=== PATIENT | female | born 1970 | race Caucasian/White ===

== ENCOUNTER 2016-12-19 21:55 | Emergency (ER) | payer SELFPAY ==
[2016-12-19 22:41] VITALS: BP 0/0
--- OUTSIDE RECORDS SUMMARY | 2016-12-21 17:35 | XMS REPORT ---
Author Author JUVE MARCUS Organization [facility] Address [address] [place] [address] Care Team Providers Care Inspector Set Up And Lay Out Name Role Phone JUVE MARCUS Unavailable PROBLEMS Type Condition ICD9-CM Code FSS13-LD Code Onset Dates Condition Status SNOMED Code Problem Allergic rhinitis, unspecified allergic rhinitis type J30.9 Active 27810914 Problem Benign essential hypertension I10 Active 6345994 Problem Uncomplicated asthma, unspecified asthma severity J45.909 Active 534299742 Problem Moderate single current episode of major depressive disorder F32.1 Active 65701469 Problem Other hyperlipidemia E78.4 Active 64038214 Problem Anxiety F41.9 Active 03395129 Problem Hypothyroidism, unspecified type E03.9 Active 74342430 Problem Excessive or frequent menstruation N92.0 Active 507452228 Problem Lump or mass in breast N63 Active 13057692 ALLERGIES Unknown Allergies SOCIAL HISTORY No smoking Hx information available PLAN OF CARE VITAL SIGNS MEDICATIONS Medication Instructions Dosage Frequency Start Date End Date Duration Status Gabapentin 100 MG Orally 3 times a day as directed 8h May, Active RESULTS No Results PROCEDURES No Known procedures IMMUNIZATIONS No Known Immunizations
--- OUTSIDE RECORDS SUMMARY | 2016-12-21 17:35 | XMS REPORT | Continuity of Care Document ---
Author Author [facility] Organization [facility] Address Unknown Phone Unavailable Care Team Providers Care Personal Development Educator Name Role Phone Gemini Aguilar PCP [phone] Source Comments Some departments are not documenting in the electronic medical record. If you do not see the information that you expected, contact Release of Information in the Health Information Management department at [phone] for further assistance in locating additional records.[facility] Active Allergies and Adverse Reactions Allergen Noted Date Severity Reactions Comments Compazine 12/01/2016 Low ANXIETY Agitation, "crawling out of my skin" Sulfa (Sulfonamide 11/29/2016 Low NAUSEA AND VOMITING Antibiotics) Tetracycline 11/29/2016 Low UNKNOWN Current Medications Prescription Sig. Disp. Refills Start End Date Status Date MULTIVITAMIN/IRON/FOLIC Take 1 Tab by mouth Active ACID (CENTRUM WOMEN PO) daily. cholecalciferol (VITAMIN Take 1,000 Units by mouth Active D-3) 1,000 units tablet daily. venlafaxine (EFFEXOR) 75 Take 75 mg by mouth twice Active mg tablet daily with meals. spironolactone Take 50 mg by mouth twice Active (ALDACTONE) 50 mg tablet daily. Take with food. furosemide (LASIX) 40 mg Take 40 mg by mouth every Active tablet morning. traZODone (DESYREL) 150 Take 150 mg by mouth at Active mg tablet bedtime as needed. coenzyme Q10(+) 100 mg Take 100 mg by mouth Active cap daily. pantoprazole DR Take 1 Tab by mouth 30 Tab 1 12/03/19 Active (PROTONIX) 40 mg tablet daily. 17 Active Problems Problem Noted Date Chest pain 11/29/2016 Morbid obesity due to excess calories (HCC) 11/29/2016 Gastroesophageal reflux disease without esophagitis 11/29/2016 Odynophagia 11/29/2016 Hypokalemia 11/29/2016 Most Recent Encounters Date Type Specialty Providers Description 12/21/2016 Hospital Emergency Medicine Encounter 12/01/2016 Surgery Marce Kc MD ESOPHAGOGASTRODUODENOSCOP Y 11/30/2016 Anesthesia Pierre Chandra, VI Event 11/30/2016 Anesthesia Katie Ratliff SRNA Event 11/29/2016 Hospital Haris Dodd MD Chest pain - Encounter Thaddeus Mcnally MD 12/02/2016 Melanie Lake MD Social History Tobacco Use Types Packs/Day Years Used Date Former Smoker Smokeless Tobacco: Never Used Comments: quit 20 years ago Alcohol Use Drinks/Week oz/Week Comments No very rare Last Filed Vital Signs Vital Sign Reading Time Taken Blood Pressure 131/69 12/02/2016 11:00 AM CDT Pulse 68 12/02/2016 11:00 AM CDT Temperature 36.6 C (97.8 F) 12/02/2016 11:00 AM CDT Respiratory Rate - - Height 1.727 m (5' 8") 11/30/2016 11:55 AM CDT Weight 133.811 kg (295 lb) 11/30/2016 11:55 AM CDT Body Mass Index 44.86 11/30/2016 11:55 AM CDT Oxygen Saturation 93% 12/02/2016 11:00 AM CDT Plan of Care Health Maintenance Due Date Last Done Comments Physical (Comprehensive) 1976 Exam Pertussis Vaccine 1980 Tetanus Vaccine 1986 Cervical Cancer Screening 1990 Breast Cancer Screening 2009 Influenza Vaccine 02/26/2017 Procedures from Last 3 Months Procedure Name Priority Date/Time Associated Diagnosis Comments TELEMETRY STRIPS-SCAN 12/05/2016 Results for this 9:23 AM CDT procedure are in the results section. ESOPHAGOGASTRODUODENOSCOP 12/01/2016 Dysphagia Y BIOPSY 8:35 AM CDT ESOPHAGOGASTRODUODENOSCOP 12/01/2016 Dysphagia Y 8:35 AM CDT CONSULT IV THERAPY TEAM Routine 11/30/2016 11:59 PM CDT ECG-SCAN 11/30/2016 Results for this 3:38 PM CDT procedure are in the results section. ECG UNCONFIRMED-SCAN 11/29/2016 Results for this 2:07 PM CDT procedure are in the results section. Results from Last 3 Months * TELEMETRY STRIPS-SCAN (12/05/2016 9:23 AM) Narrative Ordered by an unspecified provider. * BASIC METABOLIC PANEL (12/02/2016 4:35 AM) Only the most recent of 3 results within the time period is included. Component Value Range Sodium 140 137-147 MMOL/L Potassium 3.7 3.5-5.1 MMOL/L Chloride 109 98-110 MMOL/L CO2 25 21-30 MMOL/L Anion Gap 6 3-12 Glucose 88 70-100 MG/DL Blood Urea Nitrogen 14 7-25 MG/DL Creatinine 0.83 0.4-1.00 MG/DL Calcium 9.1 8.5-10.6 MG/DL eGFR Non >60Comment: >60 mL/min The eGFR is not validated for use in drug dosing adjustments. Continue to use estimated creatinine clearance per dosing reference text. Please contact the Clinical Pharmacist for questions. eGFR >60Comment: >60 mL/min The eGFR is not validated for use in drug dosing adjustments. Continue to use estimated creatinine clearance per dosing reference text. Please contact the Clinical Pharmacist for questions. Specimen Blood * CBC (12/02/2016 4:35 AM) Only the most recent of 3 results within the time period is included. Component Value Range White Blood Cells 7.6 4.5-11.0 K/UL RBC 3.63 (L) 4.0-5.0 M/UL Hemoglobin 12.0 12.0-15.0 GM/DL Hematocrit 34.1 (L) 36-45 % MCV 94.0 80-100 FL MCH 33.2 26-34 PG MCHC 35.3 32.0-36.0 G/DL RDW 12.6 11-15 % Platelet Count 116 (L) 150-400 K/UL MPV 9.1 7-11 FL Specimen Blood * SURGICAL PATHOLOGY (12/01/2016 9:06 AM) Component Value Range PATHOLOGY REPORT [facility] [email or web address] Charla Coreas MD, PhD, Director of Anatomic Pathology Department of Pathology and Laboratory Medicine [address] [place] [id number] Surgical Pathology Office: [phone] SURGICAL PATHOLOGY REPORT NAME: DEJA NOBLES SURG PATH #: [id number] MR #: [id number] SPECIMEN CLASS: SR BILLING #: [id number] ALT ID #: LOCATION: DISCHARGED DATE OF PROCEDURE: 12/01/2016 AGE: 46 SEX: F DATE RECEIVED: 12/01/2016 : 1970 TIME RECEIVED: 09:06 PHYSICIAN: MARCE KC DATE OF REPORT: 12/03/2016 COPY TO: DATE OF PRINTIN12/11/2016 Procedures/Addenda Addendum Date Ordered: 12/11/2016 Status: Signed Out Date Complete: 12/11/2016 By: Chuy Mejia MD, Attending Physician Date Reported: 12/11/2016 Addendum Diagnosis The diagnosis remains unchanged. Addendum Comment PAS special stain performed on block B1 is negative for fungal microorganisms. ################################################## ###################### Final Diagnosis: A. Gastric mucosa, "gastric", biopsy: Focal mild chronic inflammation. No H. pylori-like organisms are identified on H and E and immunohistochemical stained sections. B. Squamous mucosa, "mid esophageal", biopsy: Focal acute and chronic inflammation. Comment: H. pylori immunohistochemical stain performed on block A1 shows the gastric tissue is negative for H. pylori supporting the above diagnosis. Attestation: By this signature, I attest that I have personally formulated the final interpretation expressed in this report and that the above diagnosis is based upon my examination of the slides and/or other material indicated in this report. +++Electronically Signed Out By+++ [facility]/12/01/2016 Interpreted by: Chuy Mejia MD, Attending Physician Haris Ortiz D.O. Resident 12/03/2016 ################################################## ###################### Material Received: A: gastric biopsies B: mid esophageal biopsies History: 46-year-old female with a history of dysphagia. Gross Description: A. Received in formalin labeled "gastric BX" is a 0.6 x 0.5 x 0.3 cm aggregate of aggarwal-brown soft tissue fragments. The specimen is entirely submitted in cassette A1. (tn) B. Received in formalin labeled "mid esophagus BX" is a 0.5 x 0.3 x 0.2 cm aggregate of aggarwal-brown soft tissue fragments. The specimen is entirely submitted in cassette B1. (tn) aggarwal/12/01/2016 Haris Ortiz D.O. Resident If immunohistochemical stains and/or in situ hybridization are cited in this report, the performance characteristics were determined by the Department of Pathology and Laboratory Medicine of the [facility] ([employer]) in compliance with CLIA'88 regulations. Some of these tests rely on the use of "analyte specific reagents" and are subject to specific labeling requirements by the FDA. Known positive and negative control tissues demonstrate appropriate staining. This testing was developed by the Department of Pathology and Laboratory Medicine of the [facility] It has not been cleared or approved by the FDA. The FDA has determined that such clearance or approval is not necessary. * EGD REPORT (12/01/2016 8:21 AM) Component Value Range Provation Report Patient Name: Giuliano Short Procedure Date: 12/01/2016 8:21 AM [facility]: [id number] Date of : 1970 Gender: Female Attending Physician: Marce Kc MD Procedure: Upper GI endoscopy Indications: Di agnostic procedure, Globus sensation Providers: Marce Kc MD (Doctor), Zacarias Elmore MD (Fellow), Georgina Sales RN (Nurse), Harika Watters RN (Nurse) Referring Physician: Gt Candelario MD Medications: Mo nitored Anesthesia Care Complications: No immediate complications. Procedure: Pre-Anesthesia Assessment: - Prior to the procedure, a History and Physical was performed, and patient medications and allergies were reviewed. The patient's tolerance of previous anesthesia was also reviewed. The risks and benefits of the procedure and the sedation options and risks were discussed with the patient. All questions were answered, and informed consent was obtained. Prior Anticoagulants: The patient has taken no previous anticoagulant or antiplatelet agents. ASA Grade Assessment: II - A patient with mild systemic disease. After reviewing the risks and benefits, the patient was deemed in satisfactory condition to undergo the procedure. After obtaining informed consent, the endoscope was passed under direct vision. Throughout the procedure, the patient's blood pressure, pulse, and oxygen saturations were monitored continuously. The Endoscope [id number] was introduced through the mouth, and advanced to the second part of duodenum. The upper GI endoscopy was accomplished without difficulty. The patient tolerated the procedure well. Findings: The examined esophagus was normal. This was biopsied with a cold forceps for evaluation of eosinophilic esophagitis. A few localized, 4 mm non-bleeding erosions were found in the gastric antrum. There were no stigmata of recent bleeding. Biopsies were taken with a cold forceps for Helicobacter pylori testing. The exam of the stomach was otherwise normal. The examined duodenum was normal. Impression: - Normal esophagus. Biopsied. - Non-bleeding erosive gastropathy. Biopsied. - Normal examined duodenum. Estimated Blood Loss: Estimated blood loss: none. Recommendation: - Return patient to [facility] for [facility] care. - Resume previous diet. - Continue present medications. - Await pathology results. - GI inpatient team to follow - avoic NSAIDs Scope In: 8:29:11 AM Scope Out: 8:34:56 AM Total Procedure Duration Time 0 hours 5 minutes 45 seconds Procedure Code(s): --- Professional --- 47402, Esophagogastroduodenoscopy, flexible, transoral; with biopsy, single or multiple Diagnosis Code(s): --- Professional --- K31.9, Disease of stomach and duodenum, unspecified F45.8, Other somatoform disorders CPT copyright 2015 [employer]. All rights reserved. The codes documented in this report are preliminary and upon tub puller review may be revised to meet current compliance requirements. Attending Participation: I personally performed the entire procedure. MD Marce Clark MD 12/01/2016 8:38:45 AM The attending physician has electronically signed and finalized this document. Zacarias Elmore MD Number of Addenda: 0 Note Initiated On: 12/01/2016 8:21 AM * IRON + BINDING CAPACITY + %SAT+ FERRITIN (12/01/2016 4:17 AM) Component Value Range Iron 71 50-160 MCG/DL Iron Binding-TIBC 314 270-380 MCG/DL % Saturation 23 (L) 28-42 % Ferritin 65 10-200 NG/ML * ECG-SCAN (11/30/2016 3:38 PM) Narrative Ordered by an unspecified provider. * RVP VIRAL PANEL PCR (11/30/2016 2:56 PM) Component Value Range Specimen Source NASAL WASH Adenovirus NOT DETECTED Coronavirus 229E NOT DETECTED Coronavirus HKU1 NOT DETECTED Coronavirus NL63 NOT DETECTED Coronavirus OC43 NOT DETECTED Human Metapneumovirus NOT DETECTED Human NOT DETECTED Rhinovirus/ENTEROVIRUS Influenza A H1N1 2009 NOT DETECTED Influenza A H1 NOT DETECTED Influenza A H3 NOT DETECTED Influenza B NOT DETECTED Parainfluenza 1 NOT DETECTED Parainfluenza 2 NOT DETECTED Parainfluenza 3 NOT DETECTED Parainfluenza 4 NOT DETECTED RSV NOT DETECTED Bordetella Pertussis NOT DETECTED Chlamydophila Pneumoniae NOT DETECTED Mycoplasma Pneumoniae NOT DETECTED Specimen Nasopharyngeal Swab * 2-D + DOPPLER ECHOCARDIOGRAM (11/30/2016 11:55 AM) Component Value Range BSA 2.53 m2 ECHO EF 60 % Referring Provider Gemini Aguilar CV ECHO PV ASSEMBLY LEADER Tg LAW LVIDD 5.4 3.9-5.3 cm LVIDS 4.1 cm IVS 0.9 0.6-0.9 cm PW 0.9 0.6-0.9 cm FS 24.07 28-44 % EF 40.92 % LA size 4.1 2.7-3.8 cm LA volume 65.0 22-52 mL Left Atrium Index 25.69 10-32 Sinus 3.1 2.1-3.5 cm AV peak velocity 1.8 m/s TV rest pulmonary artery n/a mmHg pressure E/A ratio 1.00 TDI e' 0.120 m/s E/E' ratio 7.50 MV Peak E Gorge PW 0.900 m/s MV Peak A Gorge 0.900 m/s Narrative 1. No regional wall motion abnormalities are seen. Overall LV systolic function appears normal. The estimated left ventricular ejection fraction is 60%. 2. Normal left ventricular diastolic function. 3. Right ventricular contractility appears normal. 4. Normal chamber dimensions. 5. There is no evidence of significant valvular regurgitation or stenosis by doppler exam. 6. No pericardial effusion is seen. * ECG UNCONFIRMED-SCAN (11/29/2016 2:07 PM) Narrative Ordered by an unspecified provider. * CT CHEST WO CONTRAST (11/29/2016 2:03 PM) Impressions 1. Mild cardiomegaly without evidence of CHF or pneumonia. 2.. Mild diffuse hepatic steatosis. By my electronic signature, I attest that I have personally reviewed the images for this examination and formulated the interpretations and opinions expressed in this report Finalized by Montana Brock M.D. on 11/29/2016 2:46 PM. Dictated by Mina Che M.D. on 11/29/2016 2:[address] CHEST CLINICAL HISTORY: 46-year-old female, chest tightness, odynophagia, concern for esophagitis. TECHNIQUE: Multiple contiguous axial CT images were obtained through the chest without IV contrast. Post processing coronal and sagittal reconstruction images were made from the axial images. COMPARISON: None IV CONTRAST: None FINDINGS: Evaluation of the mediastinum and eloy, including the vasculature and for lymphadenopathy, is limited without the use of IV contrast. Lower Neck: Unremarkable. Axilla, Mediastinum and Eloy: No axillary or definite hilar lymphadenopathy. Several mildly prominent mediastinal lymph nodes are identified, none of which appear pathologically enlarged. The esophagus appears grossly unremarkable. Heart and Great Vessels: Mild cardiomegaly. Incidental note made of lipomatous hypertrophy of the interatrial septum. No pericardial effusion. The thoracic aorta is normal in caliber with trace calcified plaque. Airway, Lungs and Pleura: The central airways are widely patent. No pleural effusion, pneumothorax, or lobar consolidation. No significant pulmonary edema. Upper Abdomen: Prior cholecystectomy. Mild prominence of the extrahepatic common bile duct, likely choledochoectasia following cholecystectomy and of no acute significance given normal LFTs. There is mild diffuse hepatic steatosis. Chest Wall and Osseous Structures: Mild degenerative changes in the thoracic spine. No destructive osseous lesions are identified. Procedure Note Interface, Radiant Results - Sun Nov 29, 2016 2:[address] CHEST CLINICAL HISTORY: 46-year-old female, chest tightness, odynophagia, concern for esophagitis. TECHNIQUE: Multiple contiguous axial CT images were obtained through the chest without IV contrast. Post processing coronal and sagittal reconstruction images were made from the axial images. COMPARISON: None IV CONTRAST: None FINDINGS: Evaluation of the mediastinum and eloy, including the vasculature and for lymphadenopathy, is limited without the use of IV contrast. Lower Neck: Unremarkable. Axilla, Mediastinum and Eloy: No axillary or definite hilar lymphadenopathy. Several mildly prominent mediastinal lymph nodes are identified, none of which appear pathologically enlarged. The esophagus appears grossly unremarkable. Heart and Great Vessels: Mild cardiomegaly. Incidental note made of lipomatous hypertrophy of the interatrial septum. No pericardial effusion. The thoracic aorta is normal in caliber with trace calcified plaque. Airway, Lungs and Pleura: The central airways are widely patent. No pleural effusion, pneumothorax, or lobar consolidation. No significant pulmonary edema. Upper Abdomen: Prior cholecystectomy. Mild prominence of the extrahepatic common bile duct, likely choledochoectasia following cholecystectomy and of no acute significance given normal LFTs. There is mild diffuse hepatic steatosis. Chest Wall and Osseous Structures: Mild degenerative changes in the thoracic spine. No destructive osseous lesions are identified. IMPRESSION 1. Mild cardiomegaly without evidence of CHF or pneumonia. 2.. Mild diffuse hepatic steatosis. By my electronic signature, I attest that I have personally reviewed the images for this examination and formulated the interpretations and opinions expressed in this report Finalized by Montana Brock M.D. on 11/29/2016 2:46 PM. Dictated by Mina Che M.D. on 11/29/2016 2:17 PM. * CT NECK WO CONTRAST (11/29/2016 2:03 PM) Impressions 1.Unremarkable thyroid gland. No evidence of airway compromise, abnormal pharyngeal thickening or abscess. 2.Left maxillary sinus mucosal retention cyst or polyp, with additional tiny right maxillary mucous retention cyst or polyp. By my electronic signature, I attest that I have personally reviewed the images for this examination and formulated the interpretations and opinions expressed in this report Finalized by Montana Brock M.D. on 11/29/2016 2:50 PM. Dictated by Mina Che M.D. on 11/29/2016 2:[address] NECK WITH CONTRAST CLINICAL HISTORY: 46-year-old female, dysphagia, prior thyromegaly, throat pain and tightness. TECHNIQUE: Multiple contiguous axial images were obtained through the neck following the administration of IV contrast. Post processing coronal and sagittal reconstruction images were made from the axial images. COMPARISON: None IV CONTRAST: Isovue-370 FINDINGS: Brain and Orbits: Intracranial detail is mildly limited secondary to technique. The ventricles and subarachnoid spaces are normal in configuration. No intracranial hemorrhage or extra-axial fluid collection. Findings of benign hyperostosis frontalis interna. The basilar cisterns are patent. The orbits are unremarkable. Sinuses and Mastoids: Moderate sized left maxillary sinus mucosal retention cyst or polyp, with additional tiny right maxillary retention cyst or polyp medially. The remaining paranasal sinuses are clear. The mastoid air cells are well aerated. Suprahyoid Neck: Moderate leftward deviation of the nasal septum. Unremarkable nasopharynx, oral cavity, oropharynx, parapharyngeal space, and retropharyngeal space. Infrahyoid Neck: Unremarkable larynx, hypopharynx, and supraglottis. Lymph Nodes: No cervical lymphadenopathy. Parotid and Submandibular Glands: Fatty replacement of the parotid glands. The submandibular glands are unremarkable. Thyroid: Unremarkable. Vasculature: Unremarkable. Osseous Structures: There is mild straightening of the normal cervical lordosis. Mild multilevel degenerative changes are noted, greatest at C6-C7. Thoracic inlet: Unremarkable upper lungs and mediastinum. Procedure Note Interface, Radiant Results - Sun Nov 29, 2016 2:[address] NECK WITH CONTRAST CLINICAL HISTORY: 46-year-old female, dysphagia, prior thyromegaly, throat pain and tightness. TECHNIQUE: Multiple contiguous axial images were obtained through the neck following the administration of IV contrast. Post processing coronal and sagittal reconstruction images were made from the axial images. COMPARISON: None IV CONTRAST: Isovue-370 FINDINGS: Brain and Orbits: Intracranial detail is mildly limited secondary to technique. The ventricles and subarachnoid spaces are normal in configuration. No intracranial hemorrhage or extra-axial fluid collection. Findings of benign hyperostosis frontalis interna. The basilar cisterns are patent. The orbits are unremarkable. Sinuses and Mastoids: Moderate sized left maxillary sinus mucosal retention cyst or polyp, with additional tiny right maxillary retention cyst or polyp medially. The remaining paranasal sinuses are clear. The mastoid air cells are well aerated. Suprahyoid Neck: Moderate leftward deviation of the nasal septum. Unremarkable nasopharynx, oral cavity, oropharynx, parapharyngeal space, and retropharyngeal space. Infrahyoid Neck: Unremarkable larynx, hypopharynx, and supraglottis. Lymph Nodes: No cervical lymphadenopathy. Parotid and Submandibular Glands: Fatty replacement of the parotid glands. The submandibular glands are unremarkable. Thyroid: Unremarkable. Vasculature: Unremarkable. Osseous Structures: There is mild straightening of the normal cervical lordosis. Mild multilevel degenerative changes are noted, greatest at C6-C7. Thoracic inlet: Unremarkable upper lungs and mediastinum. IMPRESSION 1. Unremarkable thyroid gland. No evidence of airway compromise, abnormal pharyngeal thickening or abscess. 2. Left maxillary sinus mucosal retention cyst or polyp, with additional tiny right maxillary mucous retention cyst or polyp. By my electronic signature, I attest that I have personally reviewed the images for this examination and formulated the interpretations and opinions expressed in this report Finalized by Montana Brock M.D. on 11/29/2016 2:50 PM. Dictated by Mina Che M.D. on 11/29/2016 2:10 PM. * URINALYSIS, MICROSCOPIC (11/29/2016 12:20 PM) Component Value Range WBCs,UA 0-2 0-2 /HPF RBCs,UA 2-10 0-3 /HPF Squamous Epithelial Cells 0-2 0-5 Specimen Urine * URINALYSIS DIPSTICK (11/29/2016 12:20 PM) Component Value Range Color,UA YELLOW Turbidity,UA CLEAR CLEAR-CLEAR Specific [place]-Urine 1.015 1.003-1.035 pH,UA 6.0 5.0-8.0 Protein,UA NEG NEG-NEG Glucose,UA NEG NEG-NEG Ketones,UA NEG NEG-NEG Bilirubin,UA NEG NEG-NEG Blood,UA 3+ (A) NEG-NEG Urobilinogen,UA NORMAL NORM-NORMAL Nitrite,UA NEG NEG-NEG Leukocytes,UA NEG NEG-NEG Urine Ascorbic Acid, UA NEG NEG-NEG Specimen Urine * TROPONIN-I (11/29/2016 9:32 AM) Only the most recent of 3 results within the time period is included. Component Value Range Troponin-I 0.01 0.0-0.05 NG/ML Specimen Blood * FREE T4-FREE THYROXINE (11/29/2016 8:06 AM) Only the most recent of 2 results within the time period is included. Component Value Range T4-Free 0.7 0.6-1.6 NG/DL * TSH WITH FREE T4 REFLEX (11/29/2016 8:06 AM) Only the most recent of 2 results within the time period is included. Component Value Range TSH 5.006 (H) 0.35-5.00 MCU/ML Specimen Blood * PTT (APTT) (11/29/2016 8:06 AM) Component Value Range APTT 19.7 (L) 24.0-40.0 SEC Specimen Blood * PROTIME INR (PT) (11/29/2016 8:06 AM) Component Value Range INR 1.0 0.8-1.2 Specimen Blood * CHEST 2 VIEWS (11/29/2016 1:30 AM) Impressions Findings/impression: 1. Heart and mediastinum are within normal limits. Probable mild spurring of the thoracic spine. 2. Lungs are well-expanded. No consolidation overt failure. No pleural effusion is identified. Pulmonary vasculature is within normal limits. Finalized by Jimmy Walton M.D. on 11/29/2016 10:06 AM. Dictated by Jimmy Walton M.D. on 11/29/2016 10:05 AM. Narrative Chest 2 view INDICATION: 46-year-old female, Chest pain chest pressure radiating to right jaw , reports having to clear throat repeatedly, history of thyroid problems, symptoms started yesterday Procedure Note Interface, Radiant Results - Sun Nov 29, 2016 10:10 AM CDT Chest 2 view INDICATION: 46-year-old female, Chest pain chest pressure radiating to right jaw , reports having to clear throat repeatedly, history of thyroid problems, symptoms started yesterday IMPRESSION Findings/impression: 1. Heart and mediastinum are within normal limits. Probable mild spurring of the thoracic spine. 2. Lungs are well-expanded. No consolidation overt failure. No pleural effusion is identified. Pulmonary vasculature is within normal limits. Finalized by Jimmy Walton M.D. on 11/29/2016 10:06 AM. Dictated by Jimmy Walton M.D. on 11/29/2016 10:05 AM. * POC LACTATE (11/29/2016 1:11 AM) Component Value Range LACTIC ACID POC 0.6 0.5-2.0 MMOL/L * POC TROPONIN (11/29/2016 12:56 AM) Component Value Range Mvdcimpb-V-RCS 0.00 0.00-0.05 NG/ML * MAGNESIUM (11/29/2016 12:50 AM) Component Value Range Magnesium 2.0 1.6-2.6 mg/dL Specimen Blood * COMPREHENSIVE METABOLIC PANEL (11/29/2016 12:50 AM) Component Value Range Sodium 137 137-147 MMOL/L Potassium 3.3 (L) 3.5-5.1 MMOL/L Chloride 98 98-110 MMOL/L Glucose 109 (H) 70-100 MG/DL Blood Urea Nitrogen 25 7-25 MG/DL Creatinine 1.66 (H) 0.4-1.00 MG/DL Calcium 9.4 8.5-10.6 MG/DL Total Protein 7.0 6.0-8.0 G/DL Total Bilirubin 0.4 0.3-1.2 MG/DL Albumin 4.1 3.5-5.0 G/DL Alk Phosphatase 77 25-110 U/L AST (SGOT) 21 7-40 U/L CO2 31 (H) 21-30 MMOL/L ALT (SGPT) 40 7-56 U/L Anion Gap 8 3-12 eGFR Non 33 (L)Comment: >60 mL/min The eGFR is not validated for use in drug dosing adjustments. Continue to use estimated creatinine clearance per dosing reference text. Please contact the Clinical Pharmacist for questions. eGFR 40 (L)Comment: >60 mL/min The eGFR is not validated for use in drug dosing adjustments. Continue to use estimated creatinine clearance per dosing reference text. Please contact the Clinical Pharmacist for questions. Specimen Blood * CBC AND DIFF (11/29/2016 12:50 AM) Component Value Range White Blood Cells 8.6 4.5-11.0 K/UL RBC 4.26 4.0-5.0 M/UL Hemoglobin 13.9 12.0-15.0 GM/DL Hematocrit 39.8 36-45 % MCV 93.4 80-100 FL MCH 32.6 26-34 PG MCHC 34.9 32.0-36.0 G/DL RDW 12.7 11-15 % Platelet Count 155 150-400 K/UL MPV 9.2 7-11 FL Neutrophils 58 41-77 % Lymphocytes 33 24-44 % Monocytes 9 4-12 % Eosinophils 0 0-5 % Basophils 0 0-2 % Absolute Neutrophil Count 5.00 1.8-7.0 K/UL Absolute Lymph Count 2.80 1.0-4.8 K/UL Absolute Monocyte Count 0.80 0-0.80 K/UL Absolute Eosinophil Count 0.00 0-0.45 K/UL Absolute Basophil Count 0.00 0-0.20 K/UL Specimen Blood
--- OUTSIDE RECORDS SUMMARY | 2016-12-21 17:35 | XMS REPORT | Continuity of Care Document ---
Author Author [facility] Organization [facility] Address [facility] [address] [place] [id number] Phone Unavailable Support Name Relationship Address Phone GISELA PEÑA MD Caregiver [address] [place] [address] Unavailable Alma Winchester/Nahid Storm Caregiver [address], [place] [address] [employer] Next Of Kin [address], [place] [address] Insurance Providers Payer Name Policy Number Subscriber Name Relationship Self Pay Insurance Zelda Nobles 18 Self / Same As Patient Advance Directives Directive Response Recorded Date/Time Do you have an Advanced Directive? No 07/20/05 10:33am Advance Directives No 11/04/15 6:30pm Living Will No 11/04/15 6:30pm Health Care Proxy No 01/29/16 10:53pm Power of Mower Sharpener for Health Care No 11/04/15 6:30pm Organ, Tissue, or Eye Donor No 11/04/15 6:30pm Do you have a signed organ donor card? No 11/04/15 6:30pm Chief Complaint and Reason for Visit Chief Complaint ABDOMINAL PAIN Reason for Visit Abdominal pain Problems Active Problems Medical Problem Onset Date Status Abdominal pain Unknown Acute Ovarian anomaly Unknown Acute Ovarian mass, left Unknown Acute Ovarian mass, right Unknown Acute Postoperative abdominal pain Unknown Acute Postoperative pain Unknown Acute Postoperative vaginal bleeding Unknown Acute Medications Current Home Medications Medication Dose Units Route Directions Days/Qty Instructions Start Date Citalopram Hydrobromide 40 Mg 40 Mg Oral Daily 30 04/17/11 Levothyroxine Sodium 100 Mcg 100 Mcg Oral Daily 01/26/12 Amlodipine Besylate 5 Mg 5 Mg Oral Daily 30 09/27/15 Alprazolam 0.5 Mg 0.5 Mg Oral Every 8 Hrs As Needed Anxiety 30 Gabapentin 300 Mg 300 Mg Oral As Needed For Pain 30 10/07/15 Ubidecarenone 400 Mg 400 Mg Oral Daily 10/07/15 Folic Acid/Mv,Fe,Other Min* 1 Each 1 Udtab Oral Daily 10/07/15 [place]-3/Dha/Epa/Dpa/Fish Oil 1 Each 1 Cap Oral Daily 10/07/15 Cholecalciferol 5 000 5,000 Unit Oral Daily 10/07/15 Bisacodyl 10 Mg/Supp.rect 10 Mg Rectal As Needed as needed for Constipation 30 As needed for constipation 10/12/15 Magnesium Hydroxide 400 Mg/5 Ml 30 Ml Oral Daily as needed for Constipation 1 10/12/15 Oxycodone Hcl/Acetaminophen 1 Tab 1-2 Tab Oral Every 4-6 Hrs As Needed Pain 15 11/04/15 Clindamycin Hcl 150 Mg 450 Mg Oral Three Times A Day 90 11/04/15 Meloxicam 15 Mg 15 Mg Oral Daily 14 01/30/16 Past Home Medications Medication Directions Ordered Status Acetaminophen/ Codeine #3 Tab* 1 Tab Tablet, 1 Tab Oral Every 4-6 Hrs As Needed Pain 07/23/09 Discontinued Sulfamethoxazole/Trimethoprim* 1 Tab Tablet, 1 Tab Oral Twice A Day 07/23/09 Discontinued [Xanax] , 0.5 Mg Oral As Needed 10/14/09 Discontinued [Hydrocodone 7.5/500] , Oral As Needed 10/14/09 Discontinued [Tylenol #3] , Oral As Needed 10/14/09 Discontinued [Levothyroxin] , Oral Daily 10/14/09 Discontinued Promethazine Hcl 25 Mg Tablet, 25 Mg Oral Every 4-6 Hrs As Needed Nausea 15/04 Discontinued Ciprofloxacin Hcl 250 Mg Tablet, 250 Mg Oral Twice A Day 10/14/09 Discontinued [Levothyroxine] , Daily 09/29/10 Discontinued [Flexeril] , 09/29/10 Discontinued [Celexa] , Daily 09/29/10 Discontinued [[place]-3] , 09/29/10 Discontinued [Multi-Vitamin] , 09/29/10 Discontinued Levofloxacin 250 Mg Tablet, 250 Mg Oral Daily 09/30/10 Discontinued Acetaminophen/Hydrocodone Bitart 1 Tab Tablet, 1 Tab Oral Every 4-6 Hrs As Needed Pain 09/30/10 Discontinued Levothyroxine Sodium 75 Mcg Tablet, 75 Mcg Oral Daily 04/17/11 Discontinued Cyclobenzaprine Hcl 10 Mg Tablet, 10 Mg Oral As Needed 04/17/11 Discontinued Multivitamins/Iron 1 Each Tablet, 1 Each Oral Daily 04/17/11 Discontinued Alprazolam 1 Mg Tablet, 1 Mg Oral Bedtime 04/20/11 Discontinued Acetaminophen/Hydrocodone Bitart 1 Tab Tablet, 1 Tab Oral Every 6 Hrs As Needed For Pain 04/23/11 Discontinued Docusate Sodium 100 Mg Capsule, 100 Mg Oral Twice A Day 04/23/11 Discontinued Lorazepam 1 Mg Tablet, 1 Mg Oral Every 8 Hrs As Needed Anxiety 01/26/12 Discontinued Metronidazole 250 Mg Tablet, 250 Mg Oral Three Times A Day 01/26/12 Discontinued Acetaminophen/Hydrocodone Bitart 1 Tab Tablet, 1 Tab Oral Every 6 Hrs As Needed For Pain 01/26/12 Discontinued Promethazine Hcl 25 Mg Tablet, 25 Mg Oral Every 6 Hours As Needed Nausea 27/06 Discontinued Lisinopril (Zestril 20 Mg Tab*) 20 Mg Tablet, 20 Mg Oral Daily 01/26/12 Discontinued Promethazine Hcl 25 Mg Tablet, 25 Mg Oral Every 4-6 Hrs As Needed Nausea 03/09 Discontinued Ondansetron* 4 Mg/Tab Tab.rapdis, 4 Mg Oral Every 6 Hours As Needed Nausea Discontinued Metoclopramide Hcl 10 Mg Tablet, 10 Mg Oral Three Times A Day 04/15/12 Discontinued Sucralfate 1 G Tablet, 1 G Oral Before Meals And At Bedtime 04/15/12 Discontinued Prochlorperazine Maleate 10 Mg Tablet, 10 Mg Oral Four Times Daily 09/24/15 Discontinued Ondansetron* 4 Mg/Tab Tab.rapdis, 4 Mg Oral Every 6 Hours 09/24/15 Discontinued Dicyclomine Hcl 20 Mg Tablet, 20 Mg Oral Four Times Daily 09/24/15 Discontinued Hydrochlorothiazide 25 Mg Tablet, 25 Mg Oral Daily 09/27/15 Discontinued Tramadol Hcl 50 Mg Tablet, 50 Mg Oral Three Times Daily Prn Pain 09/27/15 Discontinued [ Control] , 1 Tab Oral Daily 09/27/15 Discontinued Cyclobenzaprine Hcl (Flexeril*) 10 Mg Tablet, 10 Mg Oral Twice Daily As Needed 09/27/15 Discontinued Hydrochlorothiazide 25 Mg Tablet, 25 Mg Oral As Needed 10/07/15 Discontinued Social History Social History Problem Response Recorded Date/Time Smoking Status Former smoker 10/07/2015 12:54pm Alcohol Use none 01/29/2016 11:45pm Drug Use none 01/29/2016 11:45pm Sexual History Heterosexual 11/04/2015 7:46pm Query Response Start Date Stop Date Smoking Status Former smoker Hospital Discharge Instructions No hospital discharge instructions. Plan of Care Discharge Date 01/30/16 1:10am Condition at Discharge Stable Instructions/Education Provided Abdominal Pain (ED) Prescriptions See Medication Section Referrals Alma Winchester/Emeterio Whitfield - Additional Instructions/Education One of your blood pressures here today in the emergency department was noted to be high. Blood pressure is expressed as systolic blood pressure over diastolic blood pressure, or SBP/DBP. Normal blood pressure is considered 120/80 mm Hg; anything greater than either of these numbers is considered a high blood pressure. You need to follow up with your primary care doctor regarding this finding at your next visit. Functional Status Query Response Date Recorded Patient Behavior Cooperative Appropriate January 29, 2016 11:00pm Allergies, Adverse Reactions, Alerts Allergen Type Severity Reaction Status Last Updated Penicillin Allergy Unknown Active 09/30/15 SULFA (SULFONAMIDE ANTIBIOTICS) Allergy Unknown VOMITING Active 09/30/15 Doxycycline Allergy Unknown Active 09/30/15 Immunizations Name Given Type Hx Diphtheria, Pertussis, Tetanus Vaccination Up To Date Historical Hx Influenza Vaccination Yes Historical Hx Pneumococcal Vaccination No Historical Vital Signs Acute Vital Signs Vital Response Date/Time Temperature (Fahrenheit) 98.8 degrees F (97.6 - 99.5) 01/30/2016 1:00am Temperature Source Temporal Artery 01/30/2016 1:00am Pulse Rate (adult) 77 bpm (60 - 90) 01/30/2016 1:00am Respiratory Rate 20 bpm (12 - 24) 01/30/2016 1:00am Blood Pressure 136/75 mm Hg 01/30/2016 1:00am O2 Sat by Pulse Oximetry 95 % (90 - 100) 01/30/2016 1:00am Oxygen Delivery Method 01/30/2016 1:00am Pain Location Body Site Modifier 11/04/2015 9:15pm Pain Description Acute Cramping 11/04/2015 9:15pm Height 5 ft 8 in Weight 279 lb Body Mass Index 42.0 kg/m^2 Results Laboratory Results Test Name Result Units Flags Reference Collection Date/Time Result Date/ Time Comments White Blood Count 5.3 K/uL 4.8-10.8 11/04/2015 8:40pm 11/04/2015 8: 44pm Red Blood Count 3.90 M/uL L 4.20-5.40 11/04/2015 8:40pm 11/04/2015 8: 44pm Hemoglobin 11.2 gm/dL L 12.0-16.0 11/04/2015 8:40pm 11/04/2015 8:44pm Hematocrit 35.4 % L 37.0-47.0 11/04/2015 8:40pm 11/04/2015 8:44pm Mean Corpuscular Volume 90.9 fL 81.0-99.0 11/04/2015 8:40pm 11/04/2015 8:44pm Mean Corpuscular Hemoglobin 28.7 pg 27.0-31.0 11/04/2015 8:40pm 2015 8:44pm Mean Corpuscular Hemoglobin Concent 31.6 g/dL 30.0-37.0 11/04/2015 8: 40pm 11/04/2015 8:44pm Red Cell Distribution Width 15.9 % H 11.5-14.5 11/04/2015 8:40pm 2015 8:44pm Platelet Count 218 K/uL 130-400 11/04/2015 8:40pm 11/04/2015 8:44pm Mean Platelet Volume 8.6 fL 7.4-10.4 11/04/2015 8:40pm 11/04/2015 8: 44pm Neutrophils (%) (Auto) 47.4 % 42.2-75.2 11/04/2015 8:40pm 11/04/2015 8: 44pm Lymphocytes (%) (Auto) 40.1 % 20.5-51.1 11/04/2015 8:40pm 11/04/2015 8: 44pm Monocytes (%) (Auto) 7.6 % 1.7-9.3 11/04/2015 8:40pm 11/04/2015 8:44pm Eosinophils (%) (Auto) 4.3 % H 0-3 11/04/2015 8:40pm 11/04/2015 8:44pm Basophils (%) (Auto) 0.6 % 0.0-1.0 11/04/2015 8:40pm 11/04/2015 8:44pm Neutrophils # (Auto) 2.5 K/uL 2.0-6.9 11/04/2015 8:40pm 11/04/2015 8: 44pm Lymphocytes # (Auto) 2.1 K/uL 1.2-3.4 11/04/2015 8:40pm 11/04/2015 8: 44pm Monocytes # (Auto) 0.4 K/uL 0.1-0.6 11/04/2015 8:40pm 11/04/2015 8: 44pm Eosinophils # (Auto) 0.2 K/uL 0.0-0.7 11/04/2015 8:40pm 11/04/2015 8: 44pm Basophils # (Auto) 0.0 K/uL 0.0-0.2 11/04/2015 8:40pm 11/04/2015 8: 44pm Random Glucose 101 mg/dL 70-110 11/04/2015 8:40pm 11/04/2015 9:14pm Lactic Acid Level 1.6 MMOLE/L 0.4-2.0 11/04/2015 8:40pm 11/04/2015 9: 14pm Blood Urea Nitrogen 9 mg/dL 7-18 11/04/2015 8:40pm 11/04/2015 9:14pm Creatinine 0.8 mg/dL 0.55-1.02 11/04/2015 8:40pm 11/04/2015 9:14pm Sodium Level 142 mEq/L 136-145 11/04/2015 8:40pm 11/04/2015 9:14pm Potassium Level 3.8 mEq/L 3.5-5.0 11/04/2015 8:40pm 11/04/2015 9:14pm Chloride Level 105 mEq/L 98-107 11/04/2015 8:40pm 11/04/2015 9:14pm Carbon Dioxide Level 27.4 mEq/L 21-32 11/04/2015 8:40pm 11/04/2015 9: 14pm Calcium Level 9.1 mg/dL 8.8-10.5 11/04/2015 8:40pm 11/04/2015 9:14pm Total Protein 6.8 gm/dL 6.4-8.2 11/04/2015 8:40pm 11/04/2015 9:14pm Albumin 3.1 gm/dL L 3.4-5.0 11/04/2015 8:40pm 11/04/2015 9:14pm Total Bilirubin 0.22 mg/dL 0.00-1.00 11/04/2015 8:40pm 11/04/2015 9: 14pm Aspartate Amino Transf (AST/SGOT) 37 U/L 15-37 11/04/2015 8:40pm 2015 9:14pm Alanine Aminotransferase (ALT/SGPT) 69 U/L 12-78 11/04/2015 8:40pm 02/2016 9:14pm Total Alkaline Phosphatase 92 U/L 46-116 11/04/2015 8:40pm 11/04/2015 9 :14pm Urine Color YELLOW YELLOW 11/04/2015 8:00pm 11/04/2015 8:21pm Urine Appearance CLEAR CLEAR 11/04/2015 8:00pm 11/04/2015 8:21pm Urine Glucose (UA) NEGATIVE mg/dL NEGATIVE 11/04/2015 8:00pm 2015 8:21pm Urine Bilirubin NEGATIVE NEGATIVE 11/04/2015 8:00pm 11/04/2015 8: 21pm Urine Ketones NEGATIVE mg/dL NEGATIVE 11/04/2015 8:00pm 11/04/2015 8: 21pm Urine Specific [place] 1.020 1.010-1.025 11/04/2015 8:00pm 2015 8:21pm Urine Occult Blood 3+ (Large) H NEGATIVE 11/04/2015 8:00pm 11/04/2015 8:21pm URINE CULTURE ORDERED PER MEDICAL STAFF-APPROVED PROTOCOL FOR LAB. Urine pH 8.0 5.0-8.0 11/04/2015 8:00pm 11/04/2015 8:21pm Urine Protein NEGATIVE mg/dL NEGATIVE 11/04/2015 8:00pm 11/04/2015 8: 21pm Urine Urobilinogen 0.2 mg/dL E.U./dL 0.2-1.0 11/04/2015 8:00pm 2015 8:21pm Urine Nitrate NEGATIVE NEGATIVE 11/04/2015 8:00pm 11/04/2015 8:21pm Urine Leukocyte Esterase NEGATIVE NEGATIVE 11/04/2015 8:00pm 2015 8:21pm Urine RBC 8-10 /hpf 0 11/04/2015 8:00pm 11/04/2015 8:22pm Urine WBC NEGATIVE /hpf 0-4 11/04/2015 8:00pm 11/04/2015 8:22pm Urine Squamous Epithelial Cells 3-5 /hpf 0-1 11/04/2015 8:00pm 2015 8:22pm Urine Bacteria TRACE NEGATIVE 11/04/2015 8:00pm 11/04/2015 8:22pm Glomerular Filtration Rate Calc 82.1 mL/min 11/04/2015 8:40pm 2015 9:14pm Pending Laboratory Results Test Name Collection Date/Time Procedures Procedure Status Date Provider(s) Computed tomography of abdomen and pelvis with contrast Active 11/04/15 GAIL FORD MD Computed tomography of abdomen and pelvis with contrast Completed 01/29/16 GISELA PEÑA MD Encounters Encounter Location Arrival/Admit Date Discharge/Depart Date Attending Provider Departed Emergency Room [place] 01/29/16 10:55pm 01/30/16 1:10am GISELA PEÑA MD Registered Referred [place] 11/06/15 5:37pm Mina Manning M.D. Departed Emergency Room [place] 11/04/15 6:31pm 11/04/15 10:20pm GAIL FORD MD Recent Diagnosis
--- OUTSIDE RECORDS SUMMARY | 2016-12-21 17:36 | XMS REPORT ---
Author Author PHYLLIS ORTIZ [facility] [place] eClinical[employer] Address Unknown Phone Unavailable Care Team Providers Care Vegetable Tester Name Role Phone PHYLLIS ORTIZ Unavailable Allergies, Adverse Reactions, Alerts Substance Reaction Event Type Tetracycline HCl nausea Drug Allergy Sulfacetamide Sodium nausea Drug Allergy Problems Problem Type Condition Code Onset Dates Condition Status Assessment Allergic rhinitis, unspecified allergic rhinitis type J30.9 Active Problem Lump or mass in breast N63 Active Problem Anxiety F41.9 Active Problem Excessive or frequent menstruation N92.0 Active Problem Uncomplicated asthma, unspecified asthma severity J45.909 Active Problem Allergic rhinitis, unspecified allergic rhinitis type J30.9 Active Problem Hypothyroidism, unspecified type E03.9 Active Problem Benign essential hypertension I10 Active Medications Medication Code System Code Instructions Start Date End Date Status Dosage Alprazolam [facility] [address]-43 0.5 mg Apr 03, 2014 take 1 tablet by Oral route 1 time per day levothyroxine [facility] 0 75 mcg Apr 03, 2014 take 1 tablet (75 mcg) by oral route once daily Albuterol Sulfate [facility] [address]-75 Aug 22, 2014 by inhalation route Singulair [facility] [address]-68 10 MG Orally Once a day Feb 04, 2015 1 tablet in the evening Albuterol Sulfate [facility] [address]-23 2.5 mg /3 mL (0.083 %) Aug 24, 2014 1 Each by Inhalation route every 4 hours for cough and wheeze PRN for wheezing or cough Tessalon Perles [facility] [address]-38 100 MG Orally Three times a day Jun 18, 2015 1 capsule as needed Flonase [facility] [address]-58 50 MCG/ACT Nasally Once a day Jun 18, 2015 1 spray in each nostril Gabapentin [facility] [address]-68 300 MG Orally Three times a day 1 capsule Amlodipine Besylate [facility] [id number] 5 MG TAKE 1 TABLET (5 MG) BY MOUTH ONCE DAILY Hydrochlorothiazide [facility] [address]-41 25 mg Apr 03, 2014 take 1 tablet (25 mg) by oral route once daily Cyclobenzaprine HCl [facility] [address]-78 10 MG Orally Three times a day 1 tablet Ventolin HFA [facility] [address]-84 90 mcg/actuation Aug 24, 2014 inhale 2-4 puff by Inhalation route as needed every 4 hours PRN for cough or wheeze citalopram [facility] 0 40 mg Apr 03, 2014 take 1 tablet (40 mg) by oral route once daily Nebulizer ND 0 Aug 24, 2014 2 times per day PRN for SOB; Needed for lifetime Procedures Procedure Coding System Code Date Office Visit, Est Pt., Level 3 CPT-4 67373 Jun 18, 2015 Vital Signs Date/Time: Jun 18, 2015 Temperature 98.1 F Weight 282 lbs Height 67.5 in BMI 43.51 Index Blood Pressure Diastolic 76 mmHg Blood Pressure Systolic 120 mmHg Cardiac Monitoring Heart Rate 77 bpm Results No Known Results Summary Purpose eClinicalWorks Submission
--- OUTSIDE RECORDS SUMMARY | 2016-12-21 17:36 | XMS REPORT | Continuity of Care Document ---
Author Author [facility] Organization [facility] Address [facility] [address] [place] [address] Phone Unavailable Support Name Relationship Address Phone LANDEN ODOM MD Caregiver [address] [place] [phone] Unavailable GISELA PEÑA MD Caregiver [address] [address] Unavailable Alma Winchester/Nahid Storm Caregiver [address] [place], [place] [phone] MONIQUEDANGELO VAUGHANNA Next Of Kin [address], [place] [address] Insurance Providers Payer Name Policy Number Subscriber Name Relationship Self Pay Insurance Zelda Nobles 18 Self / Same As Patient Advance Directives Directive Response Recorded Date/Time Do you have an Advanced Directive? No 07/20/05 10:33am Advance Directives No 11/04/15 6:30pm Living Will No 11/04/15 6:30pm Health Care Proxy No 07/14/16 6:58pm Power of Purifying Plant Operator for Health Care No 11/04/15 6:30pm Organ, Tissue, or Eye Donor No 11/04/15 6:30pm Do you have a signed organ donor card? No 11/04/15 6:30pm Chief Complaint and Reason for Visit Chief Complaint CHEST PAIN Reason for Visit Globus sensation Neck pain Problems Active Problems Medical Problem Onset Date Status Abdominal pain Unknown Acute Chest pain Unknown Acute Globus sensation Unknown Acute Laceration Unknown Acute Neck pain Unknown Acute Ovarian anomaly Unknown Acute Ovarian mass, left Unknown Acute Ovarian mass, right Unknown Acute Postoperative abdominal pain Unknown Acute Postoperative pain Unknown Acute Postoperative vaginal bleeding Unknown Acute Ventral hernia Unknown Acute Medications Current Home Medications Medication Dose Units Route Directions Days/Qty Instructions Start Date Amlodipine Besylate 5 Mg 5 Mg Oral Daily 30 09/27/15 Alprazolam 0.5 Mg 0.5 Mg Oral Every 8 Hrs As Needed Anxiety 30 Gabapentin 300 Mg 300 Mg Oral As Needed For Pain 30 10/07/15 Ubidecarenone 400 Mg 400 Mg Oral Daily 10/07/15 Folic Acid/Mv,Fe,Other Min* 1 Each 1 Udtab Oral Daily 10/07/15 [place]-3/Dha/Epa/Dpa/Fish Oil 1 Each 1 Cap Oral Daily [...] 4-6 Hrs As Needed Pain 15 11/04/15 Meloxicam 15 Mg 15 Mg Oral Daily 14 01/30/16 Ondansetron* 4 Mg/Tab 4 Mg Oral Every 6 Hours As Needed for Nausea 14 06/06/16 Venlafaxine Hcl 37.5 Mg 37.5 Mg Oral Twice A Day 60 07/12/16 Meloxicam 7.5 Mg 7.5 Mg Oral Daily 14 07/14/16 Past Home Medications Medication Directions Ordered Status [...] 09/29/10 Discontinued [Celexa] , Daily 09/29/10 Discontinued [[place]-3] , 09/29/10 Discontinued [Multi-Vitamin] , 09/29/10 Discontinued Levofloxacin 250 Mg Tablet, 250 Mg Oral Daily 09/30/10 Discontinued Acetaminophen/Hydrocodone Bitart 1 Tab Tablet, 1 Tab Oral Every 4-6 Hrs As Needed Pain 09/30/10 Discontinued Levothyroxine Sodium 75 Mcg Tablet, 75 Mcg Oral Daily 04/17/11 Discontinued Cyclobenzaprine Hcl 10 Mg Tablet, 10 Mg Oral As Needed 04/17/11 Discontinued Citalopram Hydrobromide 40 Mg Tablet, 40 Mg Oral Daily 04/17/11 Discontinued Multivitamins/Iron 1 Each Tablet, 1 Each Oral Daily 04/17/11 Discontinued Alprazolam 1 Mg Tablet, 1 Mg Oral Bedtime 04/20/11 Discontinued Acetaminophen/Hydrocodone Bitart 1 Tab Tablet, 1 Tab Oral Every 6 Hrs As Needed For Pain 04/23/11 Discontinued Docusate Sodium 100 Mg Capsule, 100 Mg Oral Twice A Day 04/23/11 Discontinued Levothyroxine Sodium 100 Mcg Tablet, 100 Mcg Oral Daily 01/26/12 Discontinued Lorazepam 1 Mg Tablet, 1 Mg [...] 25 Mg Oral As Needed 10/07/15 Discontinued Clindamycin Hcl 150 Mg Capsule, 450 Mg Oral Three Times A Day 11/04/15 Discontinued Acetaminophen/Hydrocodone Bitart (Lortab 5-325*) 1 Tab Tablet, 1 Each Oral Every 4-6 Hrs As Needed Pain for Abdominal Cramping 06/06/16 Discontinued Social History Social History Problem Response Recorded Date/Time Smoking Status Former smoker 10/07/2015 12:54pm Tobacco Use Denies Use 07/14/2016 11:09pm Alcohol Use none 07/14/2016 11:09pm Drug Use none 07/14/2016 11:09pm Sexual History Heterosexual 11/04/2015 7:46pm Query Response Start Date Stop Date Smoking Status Former smoker Hospital Discharge Instructions No hospital discharge instructions. Plan of Care Discharge Date 07/14/16 10:23pm Condition at Discharge Stable Instructions/Education Provided Neck Pain (ED) Prescriptions See Medication Section Referrals Alma Winchester/Yolette Whitfield - Functional Status Query Response Date Recorded Patient Behavior Cooperative Appropriate July 14, 2016 7:30pm Allergies, Adverse Reactions, Alerts Allergen Type Severity Reaction Status Last Updated Penicillin Allergy Unknown Active 09/30/15 SULFA (SULFONAMIDE ANTIBIOTICS) Allergy Unknown VOMITING Active 09/30/15 Doxycycline Allergy Unknown Active 09/30/15 Immunizations Name Given Type Hx Diphtheria, Pertussis, Tetanus Vaccination Unknown Historical Hx Influenza Vaccination FALL 2015 Historical Hx Pneumococcal Vaccination N DECLINED Historical Hx Tetanus Toxoid Vaccination N UNKOWN BY PT Historical Vital Signs Acute Vital Signs Vital Response Date/Time Temperature (Fahrenheit) 97.9 degrees F (97.6 - 99.5) 07/14/2016 10:23pm Temperature Source Temporal Artery 07/14/2016 10:23pm Pulse Rate (adult) 74 bpm (60 - 90) 07/14/2016 10:23pm Respiratory Rate 20 bpm (12 - 24) 07/14/2016 10:23pm Blood Pressure 160/103 mm Hg 07/14/2016 10:23pm Blood Pressure 160/103 mm Hg 07/14/2016 10:23pm O2 Sat by Pulse Oximetry 99 % (90 - 100) 07/14/2016 10:23pm Oxygen Delivery Method 07/14/2016 10:23pm Oxygen Flow Rate 2 L/min 06/06/2016 8:03am Pain Location Body Site Modifier 07/12/2016 2:38am Pain Description 07/14/2016 9:55pm Height 5 ft 7 in Weight 617 lb Body Mass Index 96.0 kg/m^2 Results Laboratory Results Test Name Result Units Flags Reference Collection Date/Time Result Date/ Time Comments White Blood Count 12.7 K/uL H 4.8-10.8 06/06/2016 6:15am 06/06/2016 7: 00am Red Blood Count 4.53 M/uL 4.20-5.40 06/06/2016 6:1506/06/2016 7: 00am Hemoglobin 14.7 gm/dL 12.0-16.0 06/06/2016 6:1506/06/2016 7:00am Hematocrit 40.5 % 37.0-47.0 06/06/2016 6:1506/06/2016 7:00am Mean Corpuscular Volume 89.2 fL 81.0-99.0 06/06/2016 6:1506/06/2016 7:00am Mean Corpuscular Hemoglobin 32.4 pg H 27.0-31.0 06/06/2016 6:152015 7:00am Mean Corpuscular Hemoglobin Concent 36.3 g/dL 30.0-37.0 06/06/2016 6: 1506/06/2016 7:00am Red Cell Distribution Width 13.9 % 11.5-14.5 06/06/2016 6:152015 7:00am Platelet Count 189 K/uL 130-400 06/06/2016 6:15am 06/06/2016 7:00am Mean Platelet Volume 8.8 fL 7.4-10.4 06/06/2016 6:15am 06/06/2016 7: 00am Neutrophils (%) (Auto) 78.7 % H 42.2-75.2 06/06/2016 6:15am 06/06/2016 7 :00am Lymphocytes (%) (Auto) 14.9 % L 20.5-51.1 06/06/2016 6:1506/06/2016 7 :00am Monocytes (%) (Auto) 6.3 % 1.7-9.3 06/06/2016 6:1506/06/2016 7:00am Eosinophils (%) (Auto) 0.0 % 0-3 06/06/2016 6:1506/06/2016 7:00am Basophils (%) (Auto) 0.1 % 0.0-1.0 06/06/2016 6:1506/06/2016 7:00am Neutrophils # (Auto) 10.0 K/uL H 2.0-6.9 06/06/2016 6:1506/06/2016 7: 00am Lymphocytes # (Auto) 1.9 K/uL 1.2-3.4 06/06/2016 6:1506/06/2016 7: 00am Monocytes # (Auto) 0.8 K/uL H 0.1-0.6 06/06/2016 6:1506/06/2016 7: 00am Eosinophils # (Auto) 0.0 K/uL 0.0-0.7 06/06/2016 6:1506/06/2016 7: 00am Basophils # (Auto) 0.0 K/uL 0.0-0.2 06/06/2016 6:1506/06/2016 7: 00am Random Glucose 132 mg/dL H 70-110 06/06/2016 6:1506/06/2016 8:00am Blood Urea Nitrogen 19 mg/dL H 7-18 06/06/2016 6:1506/06/2016 8:00am Creatinine 0.9 mg/dL 0.55-1.02 06/06/2016 6:1506/06/2016 8:00am Sodium Level 143 mEq/L 136-145 06/06/2016 6:1506/06/2016 8:00am Potassium Level 3.3 mEq/L L 3.5-5.0 06/06/2016 6:1506/06/2016 8:00am Chloride Level 101 mEq/L 98-107 06/06/2016 6:1506/06/2016 8:00am Carbon Dioxide Level 30.5 mEq/L 21-32 06/06/2016 6:15am 06/06/2016 8: 00am Calcium Level 9.3 mg/dL 8.8-10.5 06/06/2016 6:15am 06/06/2016 8:00am Total Protein 7.1 gm/dL 6.4-8.2 06/06/2016 6:15am 06/06/2016 8:00am Albumin 3.5 gm/dL 3.4-5.0 06/06/2016 6:15am 06/06/2016 8:00am Total Bilirubin 0.39 mg/dL 0.00-1.00 06/06/2016 6:15am 06/06/2016 8: 00am Aspartate Amino Transf (AST/SGOT) 29 U/L 15-37 06/06/2016 6:15am 2015 8:00am Alanine Aminotransferase (ALT/SGPT) 69 U/L 12-78 06/06/2016 6:15am 03/2016 8:00am Total Alkaline Phosphatase 83 U/L 46-116 06/06/2016 6:15am 06/06/2016 8 :00am Lipase 164 U/L 65-230 06/06/2016 6:15am 06/06/2016 8:00am Creatine Kinase MB 0.6 NG/ML 0-3.6 06/06/2016 6:15am 06/06/2016 8:00am Myoglobin 36.0 NG/ML 10.5-92.5 06/06/2016 6:15am 06/06/2016 8:00am Troponin I < 0.02 NG/ML 0.0-0.2 06/06/2016 6:15am 06/06/2016 8:00am Glomerular Filtration Rate Calc 71.6 mL/min 06/06/2016 6:15am 2015 8:00am Pending Laboratory Results Test Name Collection Date/Time Procedures Procedure Status Date Provider(s) Computed tomography of abdomen and pelvis with contrast Active 06/06/16 POONAM SHETTY MD X-ray of chest, single view Active 06/06/16 POONAM SHETTY MD Portable x-ray of chest Completed 07/14/16 GISELA PEÑA MD Computed tomography of soft tissues of neck with contrast Completed 07/14/16 GISELA PEÑA MD Encounters Encounter Location Arrival/Admit Date Discharge/Depart Date Attending Provider Departed Emergency Room [place] 07/14/16 6:57pm 07/14/16 10:23pm GISELA PEÑA MD Departed Emergency Room [place] 07/12/16 12:24am 07/12/16 2:40am YOLETTE VINCENT D.O. Departed Emergency Room [place] 06/06/16 5:42am 06/06/16 8:10am EDDIE GUTIERREZ MD Recent Diagnosis
--- OUTSIDE RECORDS SUMMARY | 2016-12-21 17:36 | XMS REPORT ---
Author Author JAN ROGER [facility] Address [address] [place] [address] Care Team Providers Care Pound Attendant Name Role Phone JAN ROGER Unavailable PROBLEMS Type Condition ICD9-CM Code BDX34-DC Code Onset Dates Condition Status SNOMED Code Problem Allergic rhinitis, unspecified allergic rhinitis type J30.9 Active 93227313 Problem Benign essential hypertension I10 Active 8779201 Problem Uncomplicated asthma, unspecified asthma severity J45.909 Active 374274953 Problem Moderate single current episode of major depressive disorder F32.1 Active 99368467 Problem Other hyperlipidemia E78.4 Active 24170475 Problem Anxiety F41.9 Active 13782915 Problem Hypothyroidism, unspecified type E03.9 Active 86477947 Problem Excessive or frequent menstruation N92.0 Active 824804534 Problem Lump or mass in breast N63 Active 32517506 ALLERGIES Unknown Allergies SOCIAL HISTORY No smoking Hx information available PLAN OF CARE VITAL SIGNS MEDICATIONS Medication Instructions Dosage Frequency Start Date End Date Duration Status Venlafaxine HCl 75 MG Orally Once a day 1 tablet with food 24h 30 days Active RESULTS No Results PROCEDURES No Known procedures IMMUNIZATIONS No Known Immunizations
--- OUTSIDE RECORDS SUMMARY | 2016-12-21 17:36 | XMS REPORT ---
Author Author JUVE MARCUS [facility] eClinicalWorks Address Unknown Phone Unavailable Care Team Providers Care Event Specialist Name Role Phone JUVE MARCUS CP Unavailable Allergies, Adverse Reactions, Alerts Substance Reaction Event Type Tetracycline HCl nausea Drug Allergy Sulfamethoxazole-Trimethoprim hives Drug Allergy Problems Problem Type Condition Code Onset Dates Condition Status Assessment Hypothyroidism, unspecified type E03.9 Active Problem Uncomplicated asthma, unspecified asthma severity J45.909 Active Problem Allergic rhinitis, unspecified allergic rhinitis type J30.9 Active Problem Other hyperlipidemia E78.4 Active Problem Excessive or frequent menstruation N92.0 Active Problem Moderate single current episode of major depressive disorder F32.1 Active Problem Hypothyroidism, unspecified type E03.9 Active Problem Benign essential hypertension I10 Active Problem Lump or mass in breast N63 Active Problem Anxiety F41.9 Active Assessment Elevated liver function tests R79.89 Active Assessment Other hyperlipidemia E78.4 Active Assessment Moderate single current episode of major depressive disorder F32.1 Active Medications Medication Code System Code Instructions Start Date End Date Status Dosage Levothyroxine Sodium [facility] [address]-08 75 MCG Orally Once a day Wednesday- Sunday December 13, 2015 1 tablet Pravastatin Sodium [facility] [address]-24 40 mg Orally Once a day December 13, 2015 1 tablet Alprazolam [facility] [address]-73 0.5 mg Apr 03, 2014 take 1 tablet by Oral route 1 time per day citalopram ND 0 40 mg Apr 03, 2014 take 1 tablet (40 mg) by oral route once daily Bentyl [facility] [address]-52 10 mg Orally Four times a day December 04, 2015 1 capsule Venlafaxine HCl [facility] 41062727714 75 MG Orally twice a day 1 tablet with food Flonase [facility] [address]-99 50 MCG/ACT Nasally Once a day Jun 18, 2015 1 spray in each nostril Albuterol Sulfate [facility] [address]-67 2.5 mg /3 mL (0.083 %) Aug 24, 2014 1 Each by Inhalation route every 4 hours for cough and wheeze PRN for wheezing or cough Amlodipine Besylate [facility] 06551795126 5 MG TAKE 1 TABLET (5 MG) BY MOUTH ONCE DAILY Procedures Procedure Coding System Code Date LIPID PANEL CPT-4 99222 Apr 14, 2016 HEPATIC FUNCTION PANEL CPT-4 38659 Apr 14, 2016 ASSAY THYROID STIM HORMONE CPT-4 31809 Apr 14, 2016 Office Visit, Est Pt., Level 4 CPT-4 12643 Apr 14, 2016 VENIPUNCT, ROUTINE* CPT-4 64259 Apr 14, 2016 Vital Signs Date/Time: Apr 14, 2016 Cardiac Monitoring Heart Rate 87 bpm Weight 277 lbs Height 67.5 in BMI 42.74 Index Blood Pressure Diastolic 82 mmHg Blood Pressure Systolic 122 mmHg Results Name Result Date Reference Range Unit Abnormality Flag ROUTINE VENIPUNCTURE Summary Purpose eClinicalWorks Submission
--- OUTSIDE RECORDS SUMMARY | 2016-12-21 17:36 | XMS REPORT ---
Author Author PHYLLIS ORTIZ Organization [employer] Address Unknown Phone Unavailable Care Team Providers Care Preventive Medicine Physician Name Role Phone PHYLLIS ORTIZ CP Unavailable Allergies No Known Allergies Problems Problem Type Condition Code Onset Dates Condition Status Problem Lump or mass in breast N63 Active Problem Anxiety F41.9 Active Problem Excessive or frequent menstruation N92.0 Active Problem Uncomplicated asthma, unspecified asthma severity J45.909 Active Problem Allergic rhinitis, unspecified allergic rhinitis type J30.9 Active Problem Hypothyroidism, unspecified type E03.9 Active Problem Benign essential hypertension I10 Active Medications Medication Code System Code Instructions Start Date End Date Status Dosage Xyzal [facility] [address]-90 5 MG Orally Once a day January 07, 2015 1 tablet in the evening Results No Known Results Summary Purpose eClinicalWorks Submission
--- OUTSIDE RECORDS SUMMARY | 2016-12-21 17:36 | XMS REPORT ---
Author Author PHYLLIS ORTIZ [facility] eClinicalWorks Address Unknown Phone Unavailable Care Team Providers Care Data Analytics Chief Scientist Name Role Phone PHYLLIS ORTIZ Unavailable Allergies, Adverse Reactions, Alerts Substance Reaction Event Type Tetracycline HCl nausea Drug Allergy Sulfacetamide Sodium nausea Drug Allergy Problems Problem Type Condition ICD-9 Code Onset Dates Condition Status Problem Lump or mass in breast 611.72 Active Assessment Hypothyroidism 244.9 Active Problem Excessive or frequent menstruation 626.2 Active Assessment Cyst in hand 727.43 Active Medications Medication Code System Code Instructions Start Date End Date Status Dosage Albuterol Sulfate [facility] [address]-80 2.5 mg /3 mL (0.083 %) Aug 24, 2014 1 Each by Inhalation route every 4 hours for cough and wheeze PRN for wheezing or cough levothyroxine ND 0 75 mcg Apr 03, 2014 take 1 tablet (75 mcg) by oral route once daily Cyclobenzaprine HCl [facility] [address]-33 10 MG Orally Three times a day 1 tablet Nebulizer ND 0 Aug 24, 2014 2 times per day PRN for SOB; Needed for lifetime Amlodipine Besylate [facility] 69603188592 5 MG TAKE 1 TABLET (5 MG) BY MOUTH ONCE DAILY Singulair [facility] [address]-27 10 MG Orally Once a day Feb 04, 2015 1 tablet in the evening Hydrochlorothiazide [facility] [address]-42 25 mg Apr 03, 2014 take 1 tablet (25 mg) by oral route once daily citalopram ND 0 40 mg Apr 03, 2014 take 1 tablet (40 mg) by oral route once daily Albuterol Sulfate [facility] [address]-28 Aug 22, 2014 by inhalation route Ventolin HFA [facility] [address]-99 90 mcg/actuation Aug 24, 2014 inhale 2-4 puff by Inhalation route as needed every 4 hours PRN for cough or wheeze Xyzal [facility] [address]-81 5 MG Orally Once a day January 07, 2015 Apr 07, 2015 1 tablet in the evening Alprazolam [facility] [address]-95 0.5 mg Apr 03, 2014 take 1 tablet by Oral route 1 time per day Procedures Procedure Coding System Code Date VENIPUNCT, ROUTINE* CPT-4 63803 Feb 19, 2015 Office Visit, Est Pt., Level 3 CPT-4 47319 Feb 19, 2015 ASSAY THYROID STIM HORMONE CPT-4 47401 Feb 19, 2015 Vital Signs Date/Time: Feb 19, 2015 Temperature 97.8 F Weight 280 lbs Height 67.5 in BMI 43.20 Index Blood Pressure Diastolic 72 mmHg Blood Pressure Systolic 118 mmHg Cardiac Monitoring Heart Rate 78 bpm Results Name Result Date Reference Range Unit Abnormality Flag ROUTINE VENIPUNCTURE Summary Purpose eClinicalWorks Submission
--- OUTSIDE RECORDS SUMMARY | 2016-12-21 17:37 | XMS REPORT | Continuity of Care Document ---
Author Author [facility] Organization [facility] Address [facility] [address] [place] [address] Phone Unavailable Support Name Relationship Address Phone POONAM SHETTY MD Caregiver [address] [address] Unavailable Alma Winchester/Nahid Storm Caregiver [address] [phone] EDDIE GUTIERREZ MD Caregiver [address] [place] [phone] Unavailable LISET LAWS Next Of Kin [address] [id number] Insurance Providers Payer Name Policy Number Subscriber Name Relationship Self Pay Insurance Zelda Nobles 18 Self / Same As Patient Advance Directives Directive Response Recorded Date/Time Do you have an Advanced Directive? No 07/20/05 10:33am Advance Directives No 11/04/15 6:30pm Living Will No 11/04/15 6:30pm Health Care Proxy No 06/06/16 7:29am Power of Carpet Cleaning Technician for Health Care No 11/04/15 6:30pm Organ, Tissue, or Eye Donor No 11/04/15 6:30pm Do you have a signed organ donor card? No 11/04/15 6:30pm Chief Complaint and Reason for Visit Chief Complaint ABDOMINAL PAIN Reason for Visit Ventral hernia Abdominal pain Problems Active Problems Medical Problem [...] 1 Each 1 Udtab Oral Daily 10/07/15 [place]-3/Dha/Epa/Dpa/Fish Oil 1 Each 1 Cap Oral Daily [...] Mg 15 Mg Oral Daily 14 01/30/16 Acetaminophen/Hydrocodone Bitart (Lortab 5-325*) 1 Tab 1 Each Oral Every 4- 6 Hrs As Needed Pain for Abdominal Cramping 15 06/06/16 Ondansetron* 4 Mg/Tab 4 Mg Oral Every 6 Hours As Needed for Nausea 14 06/06/16 Past Home Medications Medication Directions Ordered Status [...] 09/29/10 Discontinued [Celexa] , Daily 09/29/10 Discontinued [[place]-3] , 09/29/10 Discontinued [Multi-Vitamin] , 09/29/10 Discontinued [...] Date/Time Smoking Status Former smoker 10/07/2015 12:54pm Sexual History Heterosexual 11/04/2015 7:46pm Query Response Start Date Stop Date Smoking Status Former smoker Hospital Discharge Instructions No hospital discharge instructions. Plan of Care Discharge Date 06/06/16 8:10am Condition at Discharge Stable Instructions/Education Provided Ventral Hernia (ED) Abdominal Pain (ED) Prescriptions See Medication Section Referrals Alma Winchester/Emeterio Whitfield James M.D. - 1 Week Functional Status Query Response Date Recorded [place] Coma Scale Total 15 June 06, 2016 7:30am Patient Behavior Appropriate June 06, 2016 7:30am Allergies, Adverse Reactions, Alerts Allergen Type Severity Reaction Status Last Updated Penicillin Allergy Unknown Active 09/30/15 SULFA (SULFONAMIDE ANTIBIOTICS) Allergy Unknown VOMITING Active 09/30/15 Doxycycline Allergy Unknown Active 09/30/15 Immunizations Name Given Type Hx Diphtheria, Pertussis, Tetanus Vaccination Unknown Historical Hx Influenza Vaccination No Historical Hx Pneumococcal Vaccination No Historical Vital Signs Acute Vital Signs Vital Response Date/Time Temperature (Fahrenheit) 98.1 degrees F (97.6 - 99.5) 06/06/2016 8:03am Temperature Source Temporal Artery 06/06/2016 8:03am Pulse Rate (adult) 82 bpm (60 - 90) 06/06/2016 8:03am Respiratory Rate 15 bpm (12 - 24) 06/06/2016 8:03am Blood Pressure 142/75 mm Hg 06/06/2016 8:03am O2 Sat by Pulse Oximetry 99 % (90 - 100) 06/06/2016 8:03am Oxygen Delivery Method Nasal Cannula 06/06/2016 8:03am Oxygen Flow Rate 2 L/min 06/06/2016 8:03am Height 5 ft 8 in Weight 274 lb Body Mass Index 41.0 kg/m^2 Results Laboratory Results Test Name Result Units Flags Reference Collection Date/Time Result Date/ Time Comments White Blood Count 12.7 K/uL H 4.8-10.8 06/06/2016 6:15am 06/06/2016 7: 00am Red Blood Count 4.53 M/uL 4.20-5.40 06/06/2016 6:15am 06/06/2016 7: 00am Hemoglobin 14.7 gm/dL 12.0-16.0 06/06/2016 6:1506/06/2016 7:00am Hematocrit 40.5 % 37.0-47.0 06/06/2016 6:1506/06/2016 7:00am Mean Corpuscular Volume 89.2 fL 81.0-99.0 06/06/2016 6:1506/06/2016 7:00am Mean Corpuscular Hemoglobin 32.4 pg H 27.0-31.0 06/06/2016 6:152015 7:00am Mean Corpuscular Hemoglobin Concent 36.3 g/dL 30.0-37.0 06/06/2016 6: 1506/06/2016 7:00am Red Cell Distribution Width 13.9 % 11.5-14.5 06/06/2016 6:152015 7:00am Platelet Count 189 K/uL 130-400 06/06/2016 6:1506/06/2016 7:00am Mean Platelet Volume 8.8 fL 7.4-10.4 06/06/2016 6:1506/06/2016 7: 00am Neutrophils (%) (Auto) 78.7 % H 42.2-75.2 06/06/2016 6:1506/06/2016 7 :00am Lymphocytes (%) (Auto) 14.9 % [...] Carbon Dioxide Level 30.5 mEq/L 21-32 06/06/2016 6:1506/06/2016 8: 00am Calcium Level 9.3 mg/dL 8.8-10.5 06/06/2016 6:1506/06/2016 8:00am Total Protein 7.1 gm/dL 6.4-8.2 06/06/2016 6:1506/06/2016 8:00am Albumin 3.5 gm/dL 3.4-5.0 06/06/2016 6:1506/06/2016 8:00am Total Bilirubin 0.39 mg/dL 0.00-1.00 06/06/2016 [...] Calc 71.6 mL/min 06/06/2016 6:15am 2015 8:00am Procedures Procedure Status Date Provider(s) Computed tomography of abdomen and pelvis with contrast Completed 06/06/16 POONAM SHETTY MD X-ray of chest, single view Completed 06/06/16 POONAM SHETTY MD Encounters Encounter Location Arrival/Admit Date Discharge/Depart Date Attending Provider Departed Emergency Room [place] 06/06/16 5:42am 06/06/16 8:10am EDDIE GUTIERREZ MD Recent Diagnosis
--- OUTSIDE RECORDS SUMMARY | 2016-12-21 17:37 | XMS REPORT ---
Author KIM Catherine Organization eClinicalWorks Address Unknown Phone Unavailable Care Team Providers Care Communications Electrician Supervisor Name Role Phone KIM MITCHELL CP Unavailable Allergies No Known Allergies Problems Problem Type Condition Code Onset Dates Condition Status Problem Lump or mass in breast 611.72 Active Problem Excessive or frequent menstruation 626.2 Active Medications No Known Medications Results No Known Results Summary Purpose eClinicalWorks Submission
--- OUTSIDE RECORDS SUMMARY | 2016-12-21 17:37 | XMS REPORT ---
Author Author PHYLLIS ORTIZ Organization [employer] Address Unknown Phone Unavailable Care Team Providers Care Paint Stock Clerk Name Role Phone PHYLLIS ORTIZ CP Unavailable Allergies No Known Allergies Problems Problem Type Condition Code Onset Dates Condition Status Problem Lump or mass in breast 611.72 Active Problem Excessive or frequent menstruation 626.2 Active Medications No Known Medications Results No Known Results Summary Purpose eClinicalWorks Submission
--- OUTSIDE RECORDS SUMMARY | 2016-12-21 17:37 | XMS REPORT | Continuity of Care Document ---
Author Author Counts Include [facility] At [facility] Address Unknown Phone Unavailable Allergies Active Description Code Type Severity Reaction Onset Reported/Identified Relationship to Patient Clinical Status Yes Sulfa (Sulfonamide Antibiotics) Drug Allergy N/A N/A 04/03/2014 Yes Tetracyclines Drug Allergy N/A N/A 04/03/2014 Medications Problems Date Dx Coded Attending Type Code Diagnosis Diagnosed By 04/03/2014 KIM MITCHELL MD 626.2 MENORRHAGIA 04/03/2014 KIM MITCHELL MD 626.2 MENORRHAGIA 04/03/2014 KIM MITCHELL MD 626.2 MENORRHAGIA 04/03/2014 KIM MITCHELL MD 626.2 MENORRHAGIA 04/03/2014 DANIELA JACOBSON DDS 626.2 MENORRHAGIA 04/03/2014 KIM MITCHELL MD 626.2 MENORRHAGIA 04/23/2014 KIM MITCHELL MD 782.1 RASH 04/23/2014 KIM MITCHELL MD V70.0 ROUTINE GENERAL MEDICAL EXAMINATION AT A HEALTH CARE FACILITY 04/23/2014 KIM MITCHELL MD V73.81 HPV SCREENING 04/23/2014 KIM MITCHELL MD V76.10 BREAST CANCER SCREENING 04/23/2014 KIM MITCHELL MD V76.2 CERVICAL CANCER SCREENING (PAP SMEAR) 04/23/2014 KIM MITCHELL MD 611.72 BREAST LUMP OR MASS 04/23/2014 KIM MITCHELL MD 782.1 RASH 04/23/2014 KIM MITCHELL MD V70.0 ROUTINE GENERAL MEDICAL EXAMINATION AT A HEALTH CARE FACILITY 04/23/2014 KIM MITCHELL MD V73.81 HPV SCREENING 04/23/2014 KIM MITCHELL MD V76.10 BREAST CANCER SCREENING 04/23/2014 KIM MITCHELL MD V76.2 CERVICAL CANCER SCREENING (PAP SMEAR) 04/23/2014 KAVON GARZA, DANIELA Hernandes 611.72 BREAST LUMP OR MASS 04/23/2014 DANIELA JACOBSON DDS 782.1 RASH 04/23/2014 DANIELA JACOBSON DDS V70.0 ROUTINE GENERAL MEDICAL EXAMINATION AT A HEALTH CARE FACILITY 04/23/2014 KAVON GARZA, DANIELA Hernandes V73.81 HPV SCREENING 04/23/2014 DANIELA JACOBSON DDS V76.10 BREAST CANCER SCREENING 04/23/2014 DANIELA JACOBSON DDS V76.2 CERVICAL CANCER SCREENING (PAP SMEAR) 04/23/2014 KIM MITCHELL MD 611.72 BREAST LUMP OR MASS 04/23/2014 KIM MITCHELL MD 782.1 RASH 04/23/2014 KIM MITCHELL MD V70.0 ROUTINE GENERAL MEDICAL EXAMINATION AT A HEALTH CARE FACILITY 04/23/2014 KIM MITCHELL MD V73.81 HPV SCREENING 04/23/2014 KIM MITCHELL MD V76.10 BREAST CANCER SCREENING 04/23/2014 KIM MITCHELL MD V76.2 CERVICAL CANCER SCREENING (PAP SMEAR) 08/22/2014 KIM MITCHELL MD 493.92 ASTHMA (ACUTE) EXACERBATION 08/22/2014 KIM MITCHELL MD V65.49 ASTHMA EDUCATION 10/12/2014 KIM MITCHELL MD 244.9 HYPOTHYROIDISM 10/12/2014 KIM MITCHELL MD 796.2 ELEVATED BLOOD PRESSURE READING WITHOUT DIAGNOSIS OF HYPERTENSION 10/13/2014 KIM MITCHELL MD 790.6 LIVER FUNCTION TEST, ABNORMAL Procedures Code [place] [address] ROUTINE VENIPUNCTURE 04/06/2014 52775 CBC 04/06/2014 76287 MAMMOGRAM, SCREENING 04/24/2014 88340 PAP SMEAR 2013 Q0091 PAP SMEAR OBTAIN SMEAR 04/24/2014 70370 ROUTINE VENIPUNCTURE 10/12/2014 22569 US LIVER ULTRASOUND 10/12/2014 17198 CMP 10/12/2014 62329 MAGNESIUM 2014 98685 TSH 10/12/2014 15182 CBC 10/12/2014 Results Encounters ACCT No. Visit Date/Time Discharge Status Pt. Type Provider Facility Loc./Unit Complaint [id number] 10/12/2014 09:53:00 10/12/2014 23: 59:59 CLS Outpatient KIM MITCHELL MD [id number] 06/18/2014 09:06:00 06/18/2014 23: 59:59 CLS Outpatient DANIELA JACOBSON DDS [id number] 04/23/2014 15:22:00 04/23/2014 23: 59:59 CLS Outpatient KIM MITCHELL MD [id number] 04/23/2014 15:22:00 04/23/2014 23: 59:59 CLS Outpatient KIM MITCHELL MD [id number] 04/06/2014 11:00:00 04/06/2014 23: 59:59 CLS Outpatient KIM MITCHELL MD [id number] 04/03/2014 17:30:00 04/03/2014 23: 59:59 CLS Outpatient KIM MITCHELL MD
--- OUTSIDE RECORDS SUMMARY | 2016-12-21 17:37 | XMS REPORT ---
Author Author JUVE MARCUS Organization [employer] Address Unknown Phone Unavailable Care Team Providers Care Spout Liner Name Role Phone JUVE MARCUS CP Unavailable Allergies No Known Allergies Problems Problem Type Condition Code Onset Dates Condition Status Problem Uncomplicated asthma, unspecified asthma severity J45.909 [...] breast N63 Active Problem Anxiety F41.9 Active Medications No Known Medications Results No Known Results Summary Purpose [employer] Submission
--- OUTSIDE RECORDS SUMMARY | 2016-12-21 17:37 | XMS REPORT | Continuity of Care Document ---
Author Author [facility] Organization [facility] Address [facility] [address] [place] [address] Phone Unavailable Support Name Relationship Address Phone GAIL FORD MD Caregiver [address] [address] Unavailable Alma Winchester/Nahid Storm Caregiver [address] [address] EDDIE GUTIERREZ MD Caregiver [address] [address] Unavailable LISET LAWS Next Of Kin [address] [address] Insurance Providers Payer Name Policy Number Subscriber Name Relationship Self Pay Insurance Zelda Nobles 18 Self / Same As Patient Advance Directives Directive Response Recorded Date/Time Do you have an Advanced Directive? No 07/20/05 10:33am Advance Directives No 11/04/15 6:30pm Living Will No 11/04/15 6:30pm Health Care Proxy No 11/04/15 6:30pm Power of Warp Splitter for Health Care No 11/04/15 6:30pm Organ, Tissue, or Eye Donor No 11/04/15 6:30pm Do you have a signed organ donor card? No 11/04/15 6:30pm Chief Complaint and Reason for Visit Chief Complaint ABDOMINAL PAIN Reason for Visit [id number] postoperative fluid collection Problems Active Problems Medical Problem Onset Date [...] 1 Each 1 Udtab Oral Daily 10/07/15 Almo-3/Dha/Epa/Dpa/Fish Oil 1 Each 1 Cap Oral Daily [...] Oral Three Times A Day 90 11/04/15 Past Home Medications Medication Directions Ordered Status [...] 09/29/10 Discontinued [Celexa] , Daily 09/29/10 Discontinued [Almo-3] , 09/29/10 Discontinued [Multi-Vitamin] , 09/29/10 Discontinued [...] Former smoker 10/07/2015 12:54pm Alcohol Use none 11/04/2015 7:46pm Drug Use none 11/04/2015 7:46pm Sexual History Heterosexual 11/04/2015 7:46pm Query Response Start Date Stop Date Smoking Status Former smoker Hospital Discharge Instructions No hospital discharge instructions. Plan of Care Discharge Date 11/04/15 10:20pm Condition at Discharge Stable Instructions/Education Provided Postop pain (ED) Prescriptions See Medication Section Additional Instructions/Education keep follow up with Dr. Jimenez in two days as scheduled, or sooner if necessary Functional Status Query Response Date Recorded Circle Coma Scale Total 15 November 04, 2015 7:15pm Patient Behavior Cooperative Appropriate November 04, 2015 7:15pm Allergies, Adverse Reactions, Alerts Allergen Type Severity Reaction Status Last Updated Penicillin Allergy Unknown Active 09/30/15 SULFA (SULFONAMIDE ANTIBIOTICS) Allergy Unknown VOMITING Active 09/30/15 Doxycycline Allergy Unknown Active 09/30/15 Immunizations Name Given Type Hx Diphtheria, Pertussis, Tetanus Vaccination Unknown Historical Hx Influenza Vaccination No Historical Hx Pneumococcal Vaccination No Historical Vital Signs Acute Vital Signs Vital Response Date/Time Temperature (Fahrenheit) 98.4 degrees F (97.6 - 99.5) 11/04/2015 7:15pm Temperature Source Temporal Artery 11/04/2015 7:15pm Pulse Rate (adult) 75 bpm (60 - 90) 11/04/2015 7:15pm Respiratory Rate 18 bpm (12 - 24) 11/04/2015 7:15pm Blood Pressure 140/71 mm Hg 11/04/2015 7:15pm O2 Sat by Pulse Oximetry 98 % (90 - 100) 11/04/2015 7:15pm Oxygen Delivery Method 11/04/2015 7:15pm Oxygen Flow Rate 2.0 L/min 10/09/2015 8:50pm Pain Intensity 6 10/10/2015 11:57am Pain Intensity 8 10/04/2015 10:00am Pain Location Body Site Modifier 11/04/2015 9:15pm Pain Description Acute Cramping 11/04/2015 9:15pm Height 5 ft 7.5 in Weight 270 lb Body Mass Index 41.0 kg/m^2 Results Laboratory Results Test Name Result Units Flags Reference Collection Date/Time Result Date/ Time Comments White Blood Count 12.8 K/uL H 4.8-10.8 09/23/2015 9:00pm 09/23/2015 9: 24pm Red Blood Count 4.32 M/uL 4.20-5.40 09/23/2015 9:00pm 09/23/2015 9: 24pm Hemoglobin 14.3 gm/dL 12.0-16.0 09/23/2015 9:00pm 09/23/2015 9:24pm Hematocrit 39.9 % 37.0-47.0 09/23/2015 9:00pm 09/23/2015 9:24pm Mean Corpuscular Volume 92.4 fL 81.0-99.0 09/23/2015 9:00pm 09/23/2015 9:24pm Mean Corpuscular Hemoglobin 33.2 pg H 27.0-31.0 09/23/2015 9:00pm 2015 9:24pm Mean Corpuscular Hemoglobin Concent 35.9 g/dL 30.0-37.0 09/23/2015 9: 00pm 09/23/2015 9:24pm Red Cell Distribution Width 12.3 % 11.5-14.5 09/23/2015 9:00pm 2015 9:24pm Platelet Count 203 K/uL 130-400 09/23/2015 9:00pm 09/23/2015 9:24pm Mean Platelet Volume 8.3 fL 7.4-10.4 09/23/2015 9:00pm 09/23/2015 9: 24pm Neutrophils (%) (Auto) 82.1 % H 42.2-75.2 09/23/2015 9:00pm 09/23/2015 9 :24pm Lymphocytes (%) (Auto) 12.4 % L 20.5-51.1 09/23/2015 9:00pm 09/23/2015 9 :24pm Monocytes (%) (Auto) 3.7 % 1.7-9.3 09/23/2015 9:00pm 09/23/2015 9:24pm Eosinophils (%) (Auto) 1.6 % 0-3 09/23/2015 9:00pm 09/23/2015 9:24pm Basophils (%) (Auto) 0.1 % 0.0-1.0 09/23/2015 9:00pm 09/23/2015 9:24pm Neutrophils # (Auto) 10.5 K/uL H 2.0-6.9 09/23/2015 9:00pm 09/23/2015 9: 24pm Lymphocytes # (Auto) 1.6 K/uL 1.2-3.4 09/23/2015 9:00pm 09/23/2015 9: 24pm Monocytes # (Auto) 0.5 K/uL 0.1-0.6 09/23/2015 9:00pm 09/23/2015 9: 24pm Eosinophils # (Auto) 0.2 K/uL 0.0-0.7 09/23/2015 9:00pm 09/23/2015 9: 24pm Basophils # (Auto) 0.0 K/uL 0.0-0.2 09/23/2015 9:00pm 09/23/2015 9: 24pm Random Glucose 111 mg/dL H 70-110 09/23/2015 9:00pm 09/23/2015 9:23pm Blood Urea Nitrogen 16 mg/dL 7-18 09/23/2015 9:00pm 09/23/2015 9:23pm Creatinine 0.7 mg/dL 0.55-1.02 09/23/2015 9:00pm 09/23/2015 9:23pm Sodium Level 140 mEq/L 136-145 09/23/2015 9:00pm 09/23/2015 9:23pm Potassium Level 4.0 mEq/L 3.5-5.0 09/23/2015 9:00pm 09/23/2015 9:23pm Chloride Level 103 mEq/L 98-107 09/23/2015 9:00pm 09/23/2015 9:23pm Carbon Dioxide Level 27.0 mEq/L 21-32 09/23/2015 9:00pm 09/23/2015 9: 23pm Calcium Level 9.0 mg/dL 8.8-10.5 09/23/2015 9:00pm 09/23/2015 9:23pm Total Protein 7.1 gm/dL 6.4-8.2 09/23/2015 9:00pm 09/23/2015 9:23pm Albumin 3.3 gm/dL L 3.4-5.0 09/23/2015 9:00pm 09/23/2015 9:23pm Total Bilirubin 0.36 mg/dL 0.00-1.00 09/23/2015 9:00pm 09/23/2015 9: 23pm Aspartate Amino Transf (AST/SGOT) 68 U/L H 15-37 09/23/2015 9:00pm 09/22 9:23pm Alanine Aminotransferase (ALT/SGPT) 140 U/L H 12-78 09/23/2015 9:00pm 9:23pm Total Alkaline Phosphatase 60 U/L 46-116 09/23/2015 9:00pm 09/23/2015 9 :23pm Lipase 166 U/L 65-230 09/23/2015 9:00pm 09/24/2015 12:38am Urine Color YELLOW YELLOW 09/23/2015 11:00pm 09/23/2015 11:13pm Urine Appearance CLEAR CLEAR 09/23/2015 11:00pm 09/23/2015 11:13pm Urine Glucose (UA) NEGATIVE mg/dL NEGATIVE 09/23/2015 11:00pm 2015 11:13pm Urine Bilirubin NEGATIVE NEGATIVE 09/23/2015 11:00pm 09/23/2015 11: 13pm Urine Ketones NEGATIVE mg/dL NEGATIVE 09/23/2015 11:00pm 09/23/2015 11: 13pm Urine Specific Mears 1.010 1.010-1.025 09/23/2015 11:00pm 2015 11:13pm Urine Occult Blood 3+ (Large) H NEGATIVE 09/23/2015 11:00pm 2015 11:13pm URINE CULTURE ORDERED PER MEDICAL STAFF-APPROVED PROTOCOL FOR LAB. Urine pH 5.5 5.0-8.0 09/23/2015 11:00pm 09/23/2015 11:13pm Urine Protein NEGATIVE mg/dL NEGATIVE 09/23/2015 11:00pm 09/23/2015 11: 13pm Urine Urobilinogen 0.2 mg/dL E.U./dL 0.2-1.0 09/23/2015 11:00pm 2015 11:13pm Urine Nitrate NEGATIVE NEGATIVE 09/23/2015 11:00pm 09/23/2015 11: 13pm Urine Leukocyte Esterase NEGATIVE NEGATIVE 09/23/2015 11:00pm 2015 11:13pm Urine RBC 20-29 /hpf H 0 09/23/2015 11:00pm 09/23/2015 11:35pm Urine WBC NEGATIVE /hpf 0-4 09/23/2015 11:00pm 09/23/2015 11:35pm Urine Squamous Epithelial Cells 2-4 /hpf H 0-1 09/23/2015 11:00pm 2015 11:35pm Urine Bacteria NEGATIVE NEGATIVE 09/23/2015 11:00pm 09/23/2015 11: 35pm Urine HCG, Qualitative NEGATIVE NEG 09/23/2015 11:00pm 09/23/2015 11: 35pm Glomerular Filtration Rate Calc 95.7 mL/min 09/23/2015 9:00pm 2015 9:23pm Pending Laboratory Results Test Name Collection Date/Time Pending Microbiology Results Procedure Source Collection Date/Time Procedures Procedure Status Date Provider(s) RESECTION OF UTERUS, OPEN APPROACH Completed 09/30/15 Yolette Sparks M.D. RESECTION OF CERVIX, OPEN APPROACH Completed 09/30/15 Yolette Sparks M.D. RESECTION OF BILATERAL OVARIES, OPEN APPROACH Completed 09/30/15 Yolette Sparks M.D., SUSAN CRNA RESECTION OF BILATERAL FALLOPIAN TUBES, OPEN APPROACH Completed 09/30/15 Yolette Sparks M.D., SUSAN CRNA REPAIR ABDOMINAL WALL, OPEN APPROACH Completed 09/30/15 Yolette Sparks M.D., SUSAN CRNA INTRODUCE ADHESION BARRIER IN PERITON CAV, OPEN Completed 09/30/15 Yolette Sparks M.D., SUSAN CRNA REPAIR ABDOMINAL WALL, OPEN APPROACH Completed 10/07/15 Mina Manning M.D., Baba M.D. SUTURE REMOVAL FROM TRUNK REGION Completed 10/07/15 Mina Manning M.D., Baba M.D. Computed tomography of abdomen and pelvis with contrast Active 09/23/15 ELAINA MCCORMACK MD Abd Mult Views/Kub&Up&/Or Decu Active 09/27/15 YOLETTE VINCENT D.O. Complete ultrasound of pelvis Active 09/27/15 YOLETTE VINCENT D.O. US transvaginal Active 09/27/15 YOLETTE VINCENT D.O. Computed tomography of abdomen and pelvis with contrast Active 10/07/15 HANNAH RASCON MD Computed tomography of abdomen and pelvis with contrast Active 10/12/15 AISHA,AMADOR DO Computed tomography of abdomen and pelvis with contrast Completed 11/04/15 GAIL FORD MD Encounters Encounter Location Arrival/Admit Date Discharge/Depart Date Attending Provider Departed Emergency Room [place] 11/04/15 6:31pm 11/04/15 10:20pm GAIL FORD MD Departed Emergency Room [place] 10/12/15 2:09pm 10/12/15 6:30pm AMADOR LEONARD DO Discharged Inpatient [place] 10/07/15 3:58pm 10/10/15 7:25pm Mina Manning M.D. Discharged Inpatient [place] 09/27/15 3:01pm 10/04/15 6:48pm Mina Manning M.D. Departed Emergency Room [place] 09/23/15 7:01pm 09/24/15 1:24am ELAINA MCCORMACK MD Recent Diagnosis
--- OUTSIDE RECORDS SUMMARY | 2016-12-21 17:37 | XMS REPORT ---
Author Author PHYLLIS ORTIZ Organization [employer] Address Unknown Phone Unavailable Care Team Providers Care Day Camp Counselor Name Role Phone PHYLLIS ORTIZ CP Unavailable Allergies No Known Allergies Problems No Known Problems Medications No Known Medications Results No Known Results Summary Purpose [employer] Submission
--- OUTSIDE RECORDS SUMMARY | 2016-12-21 17:38 | XMS REPORT | Continuity of Care Document ---
Author Author [facility] Organization [facility] Address [facility] [address] [place] [address] Phone Unavailable Support Name Relationship Address Phone YOLETTE VINCENT D.O. Caregiver [address] [place] [address] StrAlma loza/Nahid Storm Caregiver [address] [place] [address] MONIQUECLEMENT LISET Next Of Kin [address] [place], [place] [address] Insurance Providers Payer Name Policy Number Subscriber Name Relationship Self Pay Insurance Zelda Nobles 18 Self / Same As Patient Advance Directives Directive Response Recorded Date/Time Do you have an Advanced Directive? No 07/20/05 10:33am Advance Directives No 11/04/15 6:30pm Living Will No 11/04/15 6:30pm Power of Custodian Manager for Health Care No 11/04/15 6:30pm Organ, Tissue, or Eye Donor No 11/04/15 6:30pm Do you have a signed organ donor card? No 11/04/15 6:30pm Chief Complaint and Reason for Visit Chief Complaint CHEST PAIN Reason for Visit Chest pain Problems Active Problems Medical Problem Onset Date Status Abdominal pain Unknown Acute Chest pain Unknown Acute Ovarian anomaly Unknown Acute [...] 1 Each 1 Udtab Oral Daily 10/07/15 Vina-3/Dha/Epa/Dpa/Fish Oil 1 Each 1 Cap Oral Daily [...] Mg Oral Twice A Day 60 07/12/16 Past Home Medications Medication Directions Ordered Status [...] 09/29/10 Discontinued [Celexa] , Daily 09/29/10 Discontinued [Vina-3] , 09/29/10 Discontinued [Multi-Vitamin] , 09/29/10 Discontinued [...] Former smoker 10/07/2015 12:54pm Alcohol Use none 07/12/2016 1:14am Drug Use none 07/12/2016 1:14am Sexual History Heterosexual 11/04/2015 7:46pm Employment Employed 07/12/2016 1:14am Query Response Start Date Stop Date Smoking Status Former smoker Hospital Discharge Instructions No hospital discharge instructions. Plan of Care Discharge Date 07/12/16 2:40am Condition at Discharge Stable Instructions/Education Provided CHEST PAIN - NONSPECIFIC Prescriptions See Medication Section Referrals [facility] - 2-3 Days Additional Instructions/Education Make an appointment to follow up with her provider on Wednesday to discuss further testing to determine the etiology of the burning. Functional Status Query Response Date Recorded Patient Behavior Appropriate July 12, 2016 12:30am Allergies, Adverse Reactions, Alerts Allergen Type Severity Reaction Status Last Updated Penicillin Allergy Unknown Active 09/30/15 SULFA (SULFONAMIDE ANTIBIOTICS) Allergy Unknown VOMITING Active 09/30/15 Doxycycline Allergy Unknown Active 09/30/15 Immunizations Name Given Type Hx Diphtheria, Pertussis, Tetanus Vaccination Unknown Historical Hx Influenza Vaccination Y FALL 2015 Historical Hx Pneumococcal Vaccination Y 2012 Historical Vital Signs Acute Vital Signs Vital Response Date/Time Temperature (Fahrenheit) 97.8 degrees F (97.6 - 99.5) 07/12/2016 2:40am Temperature Source Temporal Artery 07/12/2016 2:40am Pulse Rate (adult) 72 bpm (60 - 90) 07/12/2016 2:40am Respiratory Rate 20 bpm (12 - 24) 07/12/2016 2:40am Blood Pressure 145/78 mm Hg 07/12/2016 2:40am O2 Sat by Pulse Oximetry 99 % (90 - 100) 07/12/2016 2:40am Oxygen Delivery Method 07/12/2016 2:40am Oxygen Flow Rate 2 L/min 06/06/2016 8:03am Pain Location Body Site Modifier 07/12/2016 2:38am Pain Description 07/12/2016 2:38am Height 5 ft 7 in Weight 285 lb Body Mass Index 44.0 kg/m^2 Results Laboratory Results Test Name Result Units Flags Reference Collection Date/Time Result Date/ Time Comments White Blood Count 12.7 K/uL H 4.8-10.8 06/06/2016 6:15am 06/06/2016 7: 00am Red Blood Count 4.53 M/uL 4.20-5.40 06/06/2016 6:15am 06/06/2016 7: 00am Hemoglobin 14.7 gm/dL 12.0-16.0 06/06/2016 6:15am 06/06/2016 7:00am Hematocrit 40.5 % 37.0-47.0 06/06/2016 6:15am 06/06/2016 7:00am Mean Corpuscular Volume 89.2 fL 81.0-99.0 06/06/2016 6:15am 06/06/2016 7:00am Mean Corpuscular Hemoglobin 32.4 pg H 27.0-31.0 06/06/2016 6:15am 2015 7:00am Mean Corpuscular Hemoglobin Concent 36.3 g/dL 30.0-37.0 06/06/2016 6: 15am 06/06/2016 7:00am Red Cell Distribution Width 13.9 % 11.5-14.5 06/06/2016 6:15am 2015 7:00am Platelet Count 189 K/uL 130-400 06/06/2016 6:15am 06/06/2016 7:00am Mean Platelet Volume 8.8 fL 7.4-10.4 06/06/2016 6:15am 06/06/2016 7: 00am Neutrophils (%) (Auto) 78.7 % H 42.2-75.2 06/06/2016 6:15am 06/06/2016 7 :00am Lymphocytes (%) (Auto) 14.9 % L 20.5-51.1 06/06/2016 6:15am 06/06/2016 7 :00am Monocytes (%) (Auto) 6.3 % [...] single view Active 06/06/16 POONAM SHETTY MD Encounters Encounter Location Arrival/Admit Date Discharge/Depart Date Attending Provider Departed Emergency Room [place] 07/12/16 12:24am 07/12/16 2:40am YOLETTE VINCENT D.O. Departed Emergency Room [place] 06/06/16 5:42am 06/06/16 8:10am EDDIE GUTIERREZ MD Recent Diagnosis
--- OUTSIDE RECORDS SUMMARY | 2016-12-21 17:38 | XMS REPORT ---
Author Author JUVE MARCUS Organization [employer] Address Unknown Phone Unavailable Care Team Providers Care Associate Financial Planner Name Role Phone JUVE MARCUS CP Unavailable [...]
== END 2016-12-19 22:41 | disposition left against medical advice (07) ==
LOC: EDUNIT# 21:55 → ER 21:59
DX: R10.9 Unspecified abdominal pain (principal); Z53.21 Procedure and treatment not carried out due to patient leaving prior to being seen by health care provider

== ENCOUNTER 2016-12-20 15:38 | Emergency (ER) | payer SELFPAY ==
[~2016-12-20] VITALS: Ht 172.7 cm; Wt 129.3 kg
[2016-12-20] MEDS ORDERED: PROCHLORPERAZINE 10 MG/2ML INJ (COMPAZINE) IV ONE (16:15)
[2016-12-20] MEDS ORDERED: NS IV 1000 ML 1,000 ML IV SCH (16:15)
--- NOTE | 2016-12-20 16:17 | ED Abdominal Pain ---
General Stated Complaint: ABD PAIN Source of Information: Patient Exam Limitations: No Limitations History of Present Illness Time Seen By Provider: 16:15 Initial Comments To ER with diffuse abdominal pain. This began promptly last [place] She states that there was some food that she and her friend ate that was not supposed to be spicy but it was terribly spicy. This resulted in nausea without vomiting, yellowish watery diarrhea without apparent blood or mucus. She had some left-sided abdominal pain last night. She was here in the emergency room waiting room, waited 20 minutes to be seen in the decided to go to [facility] instead. She was seen and treated there. She went back there this morning because of persistent symptoms, they were busy so she returned here. She denies fevers. Timing/Duration: 1-2 Days Severity/Quality: Cramping Location: Generalized Abdomen Radiation: No Radiation Activities at Onset: None Associated Symptoms: Nausea/Vomiting Allergies and Home Medications Allergies Coded Allergies: prochlorperazine (Verified Allergy, Unknown, 12/20/16) Review of Systems Constitutional: see HPI EENTM: No Symptoms Reported Respiratory: No Symptoms Reported Cardiovascular: No Symptoms Reported Gastrointestinal: See HPI, Abdominal Pain, Diarrhea, Nausea Genitourinary: No Symptoms Reported Musculoskeletal: no symptoms reported Skin: no symptoms reported Psychiatric/Neurological: No Symptoms Reported Endocrine: No Symptoms Reported Hematologic/Lymphatic: No Symptoms Reported Past Rurjrzx-Chwagi-Epvswo Hx Patient Social History Recent Foreign Travel: No Contact w/Someone Who Travel: No Physical Exam Vital Signs VS - Last 72 Hours, by Label 12/20/16 16:15 Temp 98.2 Pulse 80 Resp 16 B/P (MAP) 155/85 Pulse Ox 98 O2 Delivery Room Air Capillary Refill : General Appearance: WD/WN, no apparent distress HEENT: PERRL/EOMI, normal ENT inspection Neck: non-tender, full range of motion Respiratory: no respiratory distress, no accessory muscle use Gastrointestinal: normal bowel sounds, non tender, soft Extremities: normal range of motion, non-tender Neurologic/Psychiatric: alert, normal mood/affect, oriented x 3 Skin: normal color Progress/Results/Core Measures Results/Orders Lab Results Laboratory Tests Test 12/20/16 16:27 12/20/16 16:48 12/20/16 18:57 Range/Units White Blood Count 6.8 4.3-11.0 10^3/uL Red Blood Count 4.29 L 4.35-5.85 10^6/uL Hemoglobin 13.9 11.5-16.0 G/DL Hematocrit 40 35-52 % Mean Corpuscular Volume 94 80-99 FL Mean Corpuscular Hemoglobin 32 25-34 PG Mean Corpuscular Hemoglobin Concent 35 32-36 G/DL Red Cell Distribution Width 12.7 10.0-14.5 % Platelet Count 193 130-400 10^3/uL Mean Platelet Volume 11.1 H 7.4-10.4 FL Neutrophils (%) (Auto) 65 42-75 % Lymphocytes (%) (Auto) 26 12-44 % Monocytes (%) (Auto) 9 0-12 % Eosinophils (%) (Auto) 0 0-10 % Basophils (%) (Auto) 0 0-10 % Neutrophils # (Auto) 4.4 1.8-7.8 X 10^3 Lymphocytes # (Auto) 1.8 1.0-4.0 X 10^3 Monocytes # (Auto) 0.6 0.0-1.0 X 10^3 Eosinophils # (Auto) 0.0 0.0-0.3 10^3/uL Basophils # (Auto) 0.0 0.0-0.1 10^3/uL Sodium Level 141 135-145 MMOL/L Potassium Level 4.4 3.6-5.0 MMOL/L Chloride Level 104 98-107 MMOL/L Carbon Dioxide Level 28 21-32 MMOL/L Anion Gap 9 5-14 MMOL/L Blood Urea Nitrogen 18 7-18 MG/DL Creatinine 1.37 H 0.60-1.30 MG/DL Estimat Glomerular Filtration Rate 41 BUN/Creatinine Ratio 13 0-20 Glucose Level 125 H 70-105 MG/DL Calcium Level 10.0 8.5-10.1 MG/DL Total Bilirubin 0.5 0.1-1.0 MG/DL Aspartate Amino Transf (AST/SGOT) 32 5-34 U/L Alanine Aminotransferase (ALT/SGPT) 50 0-55 U/L Alkaline Phosphatase 85 40-136 U/L Total Protein 7.1 6.4-8.2 GM/DL Albumin 4.2 3.2-4.5 GM/DL Lipase 33 8-78 U/L Urine Color YELLOW Urine Clarity CLEAR Urine pH 7 5-9 Urine Specific [place] 1.010 L 1.016-1.022 Urine Protein 2+ H NEGATIVE Urine Glucose (UA) NEGATIVE NEGATIVE Urine Ketones NEGATIVE NEGATIVE Urine Nitrite NEGATIVE NEGATIVE Urine Bilirubin NEGATIVE NEGATIVE Urine Urobilinogen NORMAL NORMAL MG/DL Urine Leukocyte Esterase NEGATIVE NEGATIVE Urine RBC (Auto) 5+ H NEGATIVE Urine RBC 10-25 H /HPF Urine WBC 0-2 /HPF Urine Squamous Epithelial Cells 2-5 /HPF Urine Crystals NONE /LPF Urine Bacteria FEW H /HPF Urine Casts NONE /LPF Urine Mucus NEGATIVE /LPF Urine Culture Indicated NO My Orders Orders - JEANNETTE BELLO APRN Cbc With Automated Diff (12/20/16 16:14) Comprehensive Metabolic Panel (12/20/16 16:14) Lipase (12/20/16 16:14) Ua Culture If Indicated (12/20/16 16:14) Prochlorperazine Injection (Compazine In (12/20/16 16:15) Ns Iv 1000 Ml (Sodium Chloride 0.9%) (12/20/16 16:15) Iohexol Injection (Omnipaque 350 Mg/Ml 1 (12/20/16 16:30) Ns (Ivpb) (Sodium Chloride 0.9% Ivpb Bag (12/20/16 16:30) Saline Lock/Iv-Start (12/20/16 16:27) Ct Abdomen/Pelvis Wo (12/20/16 17:35) Ondansetron Injection (Zofran Injectio (12/20/16 17:45) Diphenhydramine Injection (Benadryl Inje (12/20/16 18:30) Medications Given in ED Current Medications Medications Dose Ordered Sig/Ashley Route Start Time Stop Time Status Last Admin Dose Admin Diphenhydramine HCl 25 mg ONCE ONCE IVP 12/20/16 18:30 12/20/16 18:31 DC 12/20/16 18:34 25 MG Ondansetron HCl 8 mg ONCE ONCE IVP 12/20/16 17:45 12/20/16 17:46 DC 12/20/16 17:45 8 MG Prochlorperazine Edisylate 10 mg ONCE ONCE IV 12/20/16 16:15 12/20/16 16:16 DC 12/20/16 16:55 10 MG Vital Signs/I&O Vital Sign - Last 12Hours 12/20/16 16:15 Temp 98.2 Pulse 80 Resp 16 B/P (MAP) 155/85 Pulse Ox 98 O2 Delivery Room Air Departure Impression Impression: Primary Impression: Nausea and vomiting Additional Impressions: Abdominal cramping Diarrhea Disposition: HOME, SELF-CARE Condition: Stable Departure-Patient Inst. Referrals: KIM LEWIS MD (PCP) Primary Care Physician JEANNETTE BELLO APRN Dec 20, 2016 16:17
[2016-12-20] MEDS ORDERED: NS 100 ML (IVPB) BAG IV ONE (16:30)
[2016-12-20] MEDS ORDERED: IOHEXOL 350 MG/ML 100 ML (OMNIPAQUE 350) VIAL IV ONE (16:30)
[2016-12-20 16:34] LABS: BASOPHILS % (AUTO) 0 % (0-10); EOSINOPHILS % (AUTO) 0 % (0-10); LYMPHOCYTES # (AUTO) 1.8 X 10^3 (1.0-4.0); LYMPHOCYTES % (AUTO) 26 % (12-44); MEAN CORPUSCULAR HEMOGLOBIN 32 PG (25-34); MEAN CORPUSCULAR HGB CONC 35 G/DL (32-36); MEAN CORPUSCULAR VOLUME 94 FL (80-99); MEAN PLATELET VOLUME 11.1 FL (7.4-10.4); MONOCYTES # (AUTO) 0.6 X 10^3 (0.0-1.0); MONOCYTES % (AUTO) 9 % (0-12); NEUTROPHILS # (AUTO) 4.4 X 10^3 (1.8-7.8); NEUTROPHILS % (AUTO) 65 % (42-75); PLATELET COUNT 193 10^3/uL (130-400); RED BLOOD COUNT 4.29 10^6/uL (4.35-5.85); RED CELL DISTRIBUTION WIDTH 12.7 % (10.0-14.5); WHITE BLOOD COUNT 6.8 10^3/uL (4.3-11.0)
[2016-12-20 17:13] LABS: ALBUMIN 4.2 GM/DL (3.2-4.5); BILIRUBIN,TOTAL 0.5 MG/DL (0.1-1.0); CREATININE SERUM 1.37 MG/DL (0.60-1.30); ICTERUS 0.7 (-100-1.9); POTASSIUM 4.4 MMOL/L (3.6-5.0); TOTAL PROTEIN 7.1 GM/DL (6.4-8.2)
[2016-12-20] MEDS ORDERED: ONDANSETRON 4 MG/2 ML (SDV) Z0FRAN IVP ONE (17:45)
--- NOTE | 2016-12-20 18:11 | Diagnostic Imaging Report ---
PROCEDURE: CT abdomen and pelvis without contrast. TECHNIQUE: Multiple contiguous axial images were obtained through the abdomen and pelvis without the use of intravenous contrast. INDICATION: Upper abdominal pain with nausea and vomiting. COMPARISON: None available. FINDINGS: Evaluation of the abdominal viscera is mildly limited without contrast. Lower chest: The lung bases are clear. No pericardial or pleural effusion. Peritoneum: No free intraperitoneal air or fluid. Liver and biliary system: Diffuse hypoattenuation of the liver suggests hepatic steatosis. No focal hepatic lesion. Cholecystectomy. No biliary duct dilatation. Spleen and Pancreas: Spleen is normal. Unenhanced pancreas is grossly normal. Adrenals: Normal. tract: No renal or ureteral calculi. No obstructive uropathy. Urinary bladder is distended without wall thickening. Status post hysterectomy. No adnexal mass. GI tract: Stomach is decompressed. No bowel obstruction. No pericolonic inflammatory changes. Status post appendectomy. Vasculature and Lymph nodes: Normal caliber aorta. No abdominal or pelvic lymphadenopathy. Musculoskeletal: No concerning osseous lesion. Diastases of the rectus abdominis muscles as well as wide neck umbilical hernia. There is also a midline hernia at the lower aspect of the rectus abdominis muscle which kinks a few nondilated small bowel loops. No fluid within the hernia sac. IMPRESSION: 1. Diastases of the rectus abdominis musculature which also includes a small midline hernia with a wide-neck at the inferior margin of the rectus abdominis muscle. The hernia sac contains a few nondilated loops of small bowel and there is no evidence of strangulation. No bowel obstruction. 2. Status post appendectomy. 3. No urinary tract calculi or obstructive uropathy. 4. Suggestion of mild diffuse hepatic steatosis. Dictated by: Dictated on workstation # [id number]
[2016-12-20] MEDS ORDERED: diphenhydrAMINE 50 MG/ML INJ (BENADRYL) IVP ONE (18:30)
[2016-12-20 19:06] LABS: BILIRUBIN,URINE NEGATIVE (NEGATIVE); KETONES,URINE NEGATIVE (NEGATIVE); LEUKOCYTE ESTERASE ,URINE NEGATIVE (NEGATIVE); NITRITE,URINE NEGATIVE (NEGATIVE); PH,URINE 7 (5-9); PROTEIN,URINE 2+ (NEGATIVE); UROBILINOGEN,URINE NORMAL (NORMAL)
[2016-12-20 19:14] LABS: WBC,URINE 0-2 /HPF
[2016-12-20 19:24] VITALS: BP 155/85
--- OUTSIDE RECORDS SUMMARY | 2016-12-21 18:37 | XMS REPORT | Continuity of Care Document ---
Author Author [facility] Organization [facility] Address Unknown Phone Unavailable Care Team Providers Care Documentation Consultant Name Role Phone Gemini Aguilar PCP [phone] Source Comments Some departments are not documenting in the electronic medical record. If you do not see the information that you expected, contact Release of Information in the Health Information Management department at [phone] for further assistance in locating additional records.[facility] Active Allergies and Adverse Reactions Allergen Noted [...] Pierre Chandra, VI Event 11/30/2016 Anesthesia Katie Ratliff, VI Event 11/29/2016 Hospital Haris Dodd MD Chest pain - Encounter Thaddeus Mcnally MD 12/02/2016 Melanie Lake MD Social History Tobacco Use Types Packs/Day Years Used Date Former Smoker Smokeless Tobacco: Never Used Comments: quit 20 years ago Alcohol Use Drinks/Week oz/Week Comments No very rare Last Filed Vital Signs Vital Sign Reading Time Taken Blood Pressure 136/74 12/21/2016 2:53 PM CDT Pulse 68 12/02/2016 11:00 AM CDT Temperature 37 C (98.6 F) 12/21/2016 2:53 PM CDT Respiratory Rate - - Height 1.727 m (5' 8") 11/30/2016 11:55 AM CDT Weight 129.275 kg (285 lb) 12/21/2016 2:53 PM CDT Body Mass Index 43.34 12/21/2016 2:53 PM CDT Oxygen Saturation 99% 12/21/2016 2:53 PM CDT Plan of Care Health Maintenance Due [...] AM) Component Value Range PATHOLOGY REPORT [facility] [email or web address] Charla Coreas MD, PhD, Director of Anatomic Pathology Department of Pathology and Laboratory Medicine [address] [place] [id number] Surgical Pathology Office: [phone] SURGICAL PATHOLOGY REPORT NAME: DEJA NOBLES SURG PATH #: [id number] MR #: [id number] SPECIMEN CLASS: SR BILLING #: [id number] ALT ID #: LOCATION: DISCHARGED DATE OF [...] in this report. +++Electronically Signed Out By+++ [facility]/12/01/2016 Interpreted by: Chuy Mejia MD, Attending Physician [...] is entirely submitted in cassette B1. (tn) /12/01/2016 Haris Ortiz D.O. Resident If immunohistochemical stains and/or in situ hybridization are cited in this report, the performance characteristics were determined by the Department of Pathology and Laboratory Medicine of the [facility] ([employer]) in compliance with CLIA'88 regulations. Some of these tests rely on the use of "analyte specific reagents" and are subject to specific labeling requirements by the FDA. Known positive and negative control tissues demonstrate appropriate staining. This testing was developed by the Department of Pathology and Laboratory Medicine of the [facility]. It has not been cleared or approved by the FDA. The FDA has determined that such clearance or approval is not necessary. * EGD REPORT (12/01/2016 8:21 AM) Component Value Range Provation Report Patient Name: Giuliano Short Procedure Date: 12/01/2016 8:21 AM [facility]: [id number] Date of : 1970 Gender: Female Attending [...] 45 seconds Procedure Code(s): --- Professional --- 25676, Esophagogastroduodenoscopy, flexible, transoral; with biopsy, single or multiple Diagnosis Code(s): --- Professional --- K31.9, Disease of stomach and duodenum, unspecified F45.8, Other somatoform disorders CPT copyright 2015 [employer]. All rights reserved. The codes documented in this report are preliminary and upon core java engineer review may be revised to meet current [...] Referring Provider Gemini Aguilar CV ECHO PV EVENT COORDINATOR MARKETING AND SALES Tg LAW LVIDD 5.4 3.9-5.3 cm LVIDS [...] Range Color,UA YELLOW Turbidity,UA CLEAR CLEAR-CLEAR Specific [place]-Urine 1.015 1.003-1.035 pH,UA 6.0 5.0-8.0 Protein,UA NEG [...] TROPONIN (11/29/2016 12:56 AM) Component Value Range Mitvqsgs-F-LQF 0.00 0.00-0.05 NG/ML * MAGNESIUM (11/29/2016 12:50 [...]
--- OUTSIDE RECORDS SUMMARY | 2016-12-21 18:40 | XMS REPORT | Continuity of Care Document ---
Author Author [facility] Address Unknown Phone Unavailable Allergies Active [...] Procedures Code [place] [address] ROUTINE VENIPUNCTURE 04/06/2014 92744 CBC 04/06/2014 45826 MAMMOGRAM, SCREENING 04/24/2014 90256 PAP SMEAR 2013 Q0091 PAP SMEAR OBTAIN SMEAR 04/24/2014 10169 ROUTINE VENIPUNCTURE 10/12/2014 91315 US LIVER ULTRASOUND 10/12/2014 22307 CMP 10/12/2014 87218 MAGNESIUM 2014 64136 TSH 10/12/2014 [id number] CBC 10/12/2014 Results Encounters ACCT No. Visit Date/Time Discharge Status Pt. Type Provider Facility Loc./Unit Complaint [id number] 10/12/2014 09:53:00 10/12/2014 23: 59:59 CLS Outpatient KIM MITCHELL MD [id number] 06/18/2014 09:06:00 06/18/2014 23: 59:59 CLS Outpatient DANIELA JACOBSON DDS [id number] 04/23/2014 15:22:00 04/23/2014 23: 59:59 CLS Outpatient KIM MITCHELL MD [id number] 04/23/2014 15:22:00 04/23/2014 23: 59:59 CLS Outpatient KIM MITCHELL MD [id number] 04/06/2014 11:00:00 04/06/2014 23: 59:59 CLS Outpatient KIM MITCHELL MD [id number] 04/03/2014 17:30:00 04/03/2014 23: 59:59 CLS Outpatient KIM MITCHELL MD
== END 2016-12-20 19:24 | disposition home or self-care (01) ==
LOC: EDUNIT# 15:38 → ER 15:40
DX: R25.2 Cramp and spasm (principal); R11.2 Nausea with vomiting, unspecified; R19.7 Diarrhea, unspecified
CPT/HCPCS: 36415; 74176; 80053; 81000; 83690; 85025; 96374; 96375

== ENCOUNTER 2018-06-27 18:26 | Emergency (ER) | payer MEDICAID, OTHER ==
[~2018-06-27] VITALS: Ht 170.2 cm; Wt 140.6 kg
--- OUTSIDE RECORDS SUMMARY | 2018-06-27 18:32 | XMS REPORT | Clinical Summary ---
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 If you do not see the information that you expected, contact Release of Information in the Health Information Management department at [phone] for further assistance in locating additional records.[facility] Allergies Comments Active Allergy Reactions Severity Noted Date Agitation, "crawling out of my skin" Prochlorperazine ANXIETY Low 12/01/2016 Edisylate Hydroxychloroquine JOINT PAIN Low 01/04/2017 Sulfa (Sulfonamide NAUSEA AND Low 11/29/2016 Antibiotics) VOMITING Tetracycline UNKNOWN Low 11/29/2016 Medications End Date Status Medication Sig Dispensed Refills Start Date Active cholecalciferol (VITAMIN Take 1,000 0 D-3) 1,000 units tablet Units by mouth daily. Active venlafaxine (EFFEXOR) 75 Take 75 mg by 0 mg tablet mouth twice daily with meals. Active spironolactone Take 50 mg by 0 (ALDACTONE) 50 mg tablet mouth twice daily. Take with food. Active furosemide (LASIX) 40 mg Take 40 mg by 0 tablet mouth every morning. Active traZODone (DESYREL) 150 Take 150 mg 0 mg tablet by mouth at bedtime as needed. Active coenzyme Q10(+) 100 mg Take 100 mg 0 cap by mouth daily. Active pantoprazole DR Take 1 Tab by 30 Tab 1 (PROTONIX) 40 mg tablet mouth daily. 7 Active ondansetron (ZOFRAN ODT) Dissolve 1 6 Tab 0 4 mg rapid dissolve Tab by mouth 7 tablet every 8 hours as needed for Nausea or Vomiting. Place on tongue to disolve. Active Multivitamin Cmb Take 1 Tab by 0 No.21-Iron-FA (CENTRUM mouth daily WOMEN) 18-400 mg-mcg tab with breakfast. Active acetaminophen (TYLENOL) Take 2 Tabs 0 325 mg tablet by mouth 7 every 4 hours as needed. Max of 4000mg (4g) per day of acetaminophen (Tylenol) from all sources Active traMADol (ULTRAM) 50 mg Take 1-2 Tabs 30 Tab 0 tablet by mouth 7 every 6 hours as needed. Active loperamide (IMODIUM A-D) For fecal 30 Cap 0 2 mg capsule incontinence 7 Active oxyCODONE (ROXICODONE, Take 1 tablet 10 tablet 0 OXY-IR) 5 mg tablet by mouth 8 every 4 hours as needed for Pain Active Problems Problem Noted Date Urinary hesitancy 01/05/2017 Ventral incisional hernia without obstruction or gangrene 01/05/2017 Dysuria 01/05/2017 Gastroenteritis 12/23/2016 Chest pain 11/29/2016 Morbid obesity due to excess calories 11/29/2016 Gastroesophageal reflux disease without esophagitis 11/29/2016 Odynophagia 11/29/2016 Hypokalemia 11/29/2016 Social History Date Tobacco Use Types Packs/Day Years Used Former Smoker Smokeless Tobacco: Never Used Comments: quit 20 years ago Alcohol Use Drinks/Week oz/Week Comments No very rare Sex Assigned at Date Recorded Not on file Industry Job Start Date Occupation Not on file Not on file Not on file Travel End Travel History Travel Start No recent travel history available. Last Filed Vital Signs Time Taken Vital Sign Reading 07/30/2017 1:00 AM [employer] Blood Pressure 160/71 07/29/2017 7:25 PM [employer] Pulse 73 07/29/2017 5:45 PM [employer] Temperature 36.9 C (98.4 F) - Respiratory Rate - 07/30/2017 12:58 AM [employer] Oxygen Saturation 98% - Inhaled Oxygen - Concentration 07/29/2017 11:52 AM [employer] Weight 127 kg (280 lb) 07/29/2017 11:52 AM [employer] Height 170.2 cm (5' 7") 07/29/2017 11:52 AM [employer] Body Mass Index 43.85 Plan of Treatment Health Maintenance Due Date Last Done Comments PHYSICAL (COMPREHENSIVE) 1976 EXAM HIV SCREENING 1984 DTAP/TDAP VACCINES (1 - 1987 Tdap) CERVICAL CANCER SCREENING 1999 BREAST CANCER SCREENING 2009 INFLUENZA VACCINE 01/26/2018 Results Not on filefrom Last 3 Months Advance Directives Patient has advance care planning documents, and code status on file. For more information, please contact: [facility] [address] [place] [address] Date Inactivated Comments Code Status Date Activated 12/25/2016 7:37 PM Full Code 12/23/2016 2:04 AM Provider has discussed Code Status Yes w/Patient or Family? 12/02/2016 2:44 PM Full Code 11/29/2016 5:17 AM Provider has discussed Code Status Yes w/Patient or Family?
--- OUTSIDE RECORDS SUMMARY | 2018-06-27 18:33 | XMS REPORT ---
Author Author ISAIAS [facility]QUERANYA [facility] Address [address] [place] [address] Care Team Providers Care Manager Sales Training Name Role Phone GISELLAJuanita JASON Unavailable PROBLEMS Type Condition ICD9-CM Code THY11-ZF Code Onset Dates Condition Status SNOMED Code Problem Primary insomnia F51.01 Active 6217840 Problem Renal insufficiency N28.9 Active 428303537 Problem Moderate episode of recurrent major depressive disorder F33.1 Active 65242318 Problem Other chronic pain G89.29 Active 89015777 Problem Acquired hypothyroidism E03.9 Active 172839436 Problem Chronic pain syndrome G89.4 Active 413285192 Problem Difficulty concentrating R41.840 Active 61672283 Problem Fatigue, unspecified type R53.83 Active 36434071 Problem ADHD, predominantly inattentive type F90.0 Active 32429732 Problem Benign essential hypertension I10 Active 2981677 Problem Allergic rhinitis, unspecified allergic rhinitis type J30.9 Active 37122269 Problem Positive urine drug screen R82.5 Active 417876019 Problem Other hyperlipidemia E78.4 Active 52115273 Problem Postablative hypothyroidism E89.0 Active 504856560 Problem Uncomplicated asthma, unspecified asthma severity J45.909 Active 898827729 Problem Major depressive disorder, single episode, unspecified F32.9 Active 85807353 Problem Anxiety F41.9 Active 69862356 Problem Lumbar degenerative disc disease M51.36 Active 77003081 ALLERGIES No Information ENCOUNTERS Encounter Location Date Diagnosis [facility] [address] [facility] [id number] [address] Jun, [facility] [address] [id number] [address] May, [facility] [address] [facility] [id number], [place] [address] May, Acquired hypothyroidism E03.9 [facility] [address], [place] [address] May, [facility] [id number] [place] [address] 91740- 9955 Apr, Acquired hypothyroidism E03.9 [facility] [id number] [place] [address] 71731- 7287 Mar, Acquired hypothyroidism E03.9 ; Skin tag L91.8 and BMI 45.0- 49.9, adult Z68.42 [place] [id number] [place] [address] 73850- 5665 Dec, [place] [id number] [place] [address] 09897- 9958 Nov, Edema, unspecified type R60.9 [place] [id number] [place] [address] 39880- 0820 Nov, Postablative hypothyroidism E89.0 [facility] [place] [id number] [place] [address] 69992- 2043 Nov, [facility] [id number] [place] [address] 32620- 4340 Nov, Generalized abdominal pain R10.84 ; History of abdominal hernia Z87.19 ; Pain of left calf M79.662 and BMI 45.0-49.9, adult Z68.42 [place] [address] [place] [address] 72451- 8397 Sep, [facility] [address] [place] [address] 76316- 6468 Sep, [facility] [id number] [place] [address] 16446- 5315 Sep, Postablative hypothyroidism E89.0 ; Pain in left knee M25.562 ; Edema, unspecified type R60.9 ; Multiple joint pain M25.50 and BMI 45.0-49.9, adult Z68.42 [place] [address], [place] [address] Aug, [facility] [address] [place] [id number] [place] [address] 12 Jul, 2017 History of swelling of feet Z87.39 [facility] [id number] [place] [address] 15852- 1008 Jul, [facility] [id number] [place] [address] 67892 -9568 Jul, Pain in left knee M25.562 ; Other chronic pain G89.29 and BMI 45.0-49.9, adult Z68.42 [place] [id number] [place] [address] 06359- 4201 Jun, [facility] [id number] [place] [address] 46002- 0816 Jun, [facility] [id number] [place] [address] 63777- 1523 May, Primary insomnia F51.01 [facility] [place] [id number] [place] [address] 58796- 5509 Apr, [facility] [id number] [place] [address] 98675- 1233 Apr, [facility] [id number] [place] [address] 28023- 9251 Apr, Acute pain of left knee M25.562 ; Renal insufficiency N28.9 ; Fatigue, unspecified type R53.83 ; Postablative hypothyroidism E89.0 and BMI 40.0-44.9, adult Z68.41 [facility] [address] [place] [address] 79896- 7430 03 Mar, 2017 Acute pain of left knee M25.562 [facility] [address] [place] [address] 31267- 6308 Feb, Renal insufficiency N28.9 [facility] [address] [place] [address] 93904- 8616 Feb, [facility] [id number] [place] [address] 18254- 0289 Feb, [facility] [id number] [place] [address] 06228- 5790 Feb, [facility] [id number] [place] [address] 83788- 2431 Feb, Renal insufficiency N28.9 ; ADHD, predominantly inattentive type F90.0 ; Postablative hypothyroidism E89.0 ; Primary insomnia F51.01 ; Difficulty concentrating R41.840 ; History of swelling of feet Z87.39 ; Chronic pain syndrome G89.4 and Moderate episode of recurrent major depressive disorder F33.1 [facility] [address] [place] [address] 24004- 7413 Feb, [facility] [address] [place] [address] 90205- 3214 Feb, [facility] [address] [place] [address] 90024- 9216 Jan, ADHD, predominantly inattentive type F90.0 [facility] [address] [place] [address] 52186- 1335 Jan, Renal insufficiency N28.9 ; Postablative hypothyroidism E89.0 and History of swelling of feet Z87.39 [facility] [address] [place] [address] 49560- 0678 Jan, Chronic pain syndrome G89.4 [facility] [address] [place] [address] 55899- 0683 Jan, [facility] [address] [place] [address] 23451- 7324 Jan, Renal insufficiency N28.9 ; Primary insomnia F51.01 ; Difficulty concentrating R41.840 ; Postablative hypothyroidism E89.0 ; History of swelling of feet Z87.39 ; Chronic pain syndrome G89.4 and Moderate episode of recurrent major depressive disorder F33.1 [facility] [address] 0081065[place], [place] [address] Jan, [facility] [address], [place] [address] Jan, Candidal dermatitis B37.2 [facility] [id number] [place] [address] 50485- 8285 Dec, [facility] [id number] [place] [address] Dec, [facility] [id number] [place] [address] 23993- 0605 Dec, [facility] [id number] [place] [address] 47886- 9975 Dec, Stool color black K92.1 [facility] [id number] [place] [address] 42360- 7447 Dec, Diarrhea of presumed infectious origin A09 [place] [id number] [place] [address] 08809- 9512 Dec, Right lower quadrant abdominal pain R10.31 and Stool color black K92.1 [facility] [id number], [place] [address] Nov, [facility] [id number] [place] [address] 09661- 1376 Nov, Visit for TB skin test Z11.1 and Pre-employment examination Z02.1 [facility] [id number] [place] [address] 27110- 6422 Nov, [facility] [id number], [place] [address] October, [facility] [id number] [place] [address] 08 Oct, 2016 [facility] [id number], [place] [address] Aug, [facility] [id number] [place] [address] 09 Aug, 2016 Other fatigue R53.83 ; BMI 45.0-49.9, adult Z68.42 ; Edema, unspecified type R60.9 ; Benign essential hypertension I10 and Lumbar degenerative disc disease M51.36 [facility] [id number] [place] [address] 08 Aug, 2016 Skin tag L91.8 [facility] [id number] [place] [address] 06 Aug, 2016 Abnormal laboratory test result R89.9 [facility] [id number] [place] [address] 20 Jul, 2016 Insomnia, unspecified type G47.00 [facility] [id number] [place] [address] 20 Jul, 2016 Benign essential hypertension I10 ; BMI 45.0-49.9, adult Z68.42 ; Lumbar degenerative disc disease M51.36 ; Edema, unspecified type R60.9 ; Other fatigue R53.83 and Hypothyroidism, unspecified type E03.9 [facility] [id number] [place] [address] 07 Jul, 2016 [facility] [id number] [place] [address] Jul, Benign essential hypertension I10 ; BMI 45.0-49.9, adult Z68.42 ; Lumbar degenerative disc disease M51.36 ; Edema, unspecified type R60.9 ; Other fatigue R53.83 and Hypothyroidism, unspecified type E03.9 [facility] [id number] [place] [address] Jun, [facility] [address] [id number], [place] [address] Jun, [facility] [id number] [place] [address] Jun, Benign essential hypertension I10 ; Hypothyroidism, unspecified type E03.9 ; Other fatigue R53.83 ; Midline low back pain without sciatica, unspecified chronicity M54.5 and BMI 45.0-49.9, adult Z68.[address] [id number] Jun, Postablative hypothyroidism E89.0 ; Rhinopharyngitis J00 and Encounter for immunization Z23 [address] [id number] Jun, [address] [id number] May, [facility] [id number] [place] [address] May, [address] [id number] May, [address] [id number] Apr, Hypothyroidism, unspecified type E03.9 [place] [id number] [place] [address] [id number] Apr, Hypothyroidism, unspecified type E03.9 [address] [place] [id number] [place] [address] [id number] Apr, [place] [id number] [place] [address] [id number] Mar, Hypothyroidism, unspecified type E03.9 ; Moderate single current episode of major depressive disorder F32.1 ; Other hyperlipidemia E78.4 and Elevated liver function tests R79.89 [facility] [address] [id number] [id number] Feb, [facility] [address] [place] [address], [place] [id number] Dec, Moderate single current episode of major depressive disorder F32.1 [facility] [address]00565100[place] [id number] Nov, [facility] [address]00565100[place] [id number] Nov, [facility] [address] [id number] [id number] Nov, Hypothyroidism, unspecified type E03.9 ; Other hyperlipidemia E78.4 and Elevated liver function tests R79.89 [place] [address]00565100[place] [id number] Nov, 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 ; Hypothyroidism, unspecified type E03.9 ; Benign essential hypertension I10 and Uncomplicated asthma, unspecified asthma severity J45.909 [address]65100[place] [id number] Nov, 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 ; Hypothyroidism, unspecified type E03.9 ; Benign essential hypertension I10 and Uncomplicated asthma, unspecified asthma severity J45.909 [facility] [address]65100[place] [id number] October, [facility] [address]00565100[place] [id number] October, [address]00565100[place] [id number] October, Abnormal laboratory test result R89.9 [facility] [address]65100[place] [id number] October, Status post bilateral oophorectomy Z90.722 [place] [address] [id number] [id number] Sep, [facility] [id number] [place] [address] [id number] Aug, [facility] [address] [place] [id number] [place] [address] [id number] Aug, Complex ovarian cyst N83.20 [facility] [address] [place] [address] [id number] Aug, Other acute sinusitis, recurrence not specified J01.80 [id number] [place] [address] [id number] Aug, [place] [id number] [place] [address] 64641- 1456 Jun, [id number] [place] [address] [id number] Jun, [id number] [place] [address] [id number] May, Allergic rhinitis, unspecified allergic rhinitis type J30.9 [place] [id number] [place] [address] 645486- 5735 May, [address] [place] [address] [id number] Mar, [address] [id number] [place] [address] [id number] Mar, [id number] [place] [address] [id number] Jan, Hypothyroidism 244.9 and Cyst in hand 727.43 [id number] [place] [address] [id number] Jan, [address]100[place] [id number] Dec, [facility] [id number] Dec, Acute sinusitis 461.9 and Cough 786.2 [id number] [place] [address] [id number] Dec, Insect bite 919.4 [place] [address]005[address] [id number] Nov, [id number] [place] [address] [id number] Nov, [place] [id number] [place] [address] [id number] Sep, Obesity, morbid 278.01 ; Sleep apnea, obstructive 327.23 and Fatigue due to sleep pattern disturbance 780.79 [facility] [id number] [place] [address] 15815- 2546 Sep, [facility] [address] [address]- 2546 Sep, [id number] [place] [address] [id number] Aug, [facility] [id number] [place] [address] 75160- 2546 Aug, [id number] [place] [address] [id number] Jul, [facility] [id number] [place] [address] 07023- 2546 Jul, [facility] [id number] [place] [address] 62653- 2546 Jul, [id number] [place] [address] [id number] Jul, [id number] [place] [address] [id number] Jun, [facility] [address]00565100[place], [place] [address]- 1046 Jun, [facility] [id number], [place] [id number] May, [facility] [address]00565100[place], [place] [address]- 0733 May, [facility] [address]005[address]100[place], [place] [address]- 5952 Mar, [facility] [address]100[place], [place]347- 2898 Mar, [facility] [address] [place] [address] 79531- 7144 Mar, [place] [address] [place] [address] [id number] Mar, [facility] [address] [place] [address] 01859- 6942 Mar, [facility] [address] [place] [address] 609456- 1220 Mar, [facility] [address]100[place], [place] [address]- [address] Mar, [place] [address]00565100[place] [id number] Mar, [facility] [address] [id number] [address]- 4053 Mar, [place] [id number][place] [id number] Mar, [facility] [address]- 2846 Mar, IMMUNIZATIONS No Known Immunizations SOCIAL HISTORY Never Assessed REASON FOR VISIT request refill PLAN OF CARE VITAL SIGNS MEDICATIONS Unknown Medications RESULTS No Results PROCEDURES No Known procedures INSTRUCTIONS MEDICATIONS ADMINISTERED No Known Medications MEDICAL (GENERAL) HISTORY Type Description Date Medical History Insomnia Medical History Lump or mass in breast Medical History anxiety Medical History obesity Medical History Hypothyroidism Medical History hypertension Medical History asthma Medical History hernia Medical History depression Medical History Benigh ovairan tumor x 2 Medical History Moderate single current episode of major depressive disorder Surgical History appendectomy Surgical History tonsillectomy and adenoidectomy Surgical History cholecystectomy Surgical History dilatation and curettage 1996 Surgical History oopherectomy-right Surgical History hysterectomy, abdominal, 2016 Surgical History Abdominal hernia repair 09/2015 Surgical History Abdominal Hernia Repair 2016 Hospitalization History Vomiting 2011 Hospitalization History Asthma [facility] Hospitalization History Mononucleosis Hospitalization History Pneumonia Hospitalization History Surgery(s) only Hospitalization History chest pain 11/2016 Hospitalization History [facility]- Diarrhea/abdominal pain 11/2016 Hospitalization History [facility] ER for heart beating funny 03/2018
--- OUTSIDE RECORDS SUMMARY | 2018-06-27 18:33 | XMS REPORT | Referral Summary ---
Author Author [facility] Organization [facility] Address Unknown Phone Unavailable Encounter Hospital Date(s): 07/12/17 - 07/13/17 [facility] [address] [place] [address] Discharge Diagnosis: Abdominal wall seroma Discharge Diagnosis: Medication side effect Discharge Disposition: 01 O/P Home Attending Physician: Kacey Giron DO Admitting Physician: Kacey Giron DO Vital Signs 1 2 3 Most recent to oldest [Reference Range]: 301.59 lb (07/12/17 5:20 PM) Weight LBS 136.8 kg (07/12/17 5:20 PM) Weight, Measured 152 / 78 (07/13/17 12:04 AM) 146 / 80 (07/12/17 6:24 PM) 179 / 93 (07/12/17 5:22 PM) Blood Pressure Display 73 bpm (07/12/17 5:20 PM) Peripheral Pulse Rate [60-100 bpm] 36.5 DegC (07/12/17 5:20 PM) Temperature Oral [35.8-37.3 DegC] Problem List No data available for this section Allergies, Adverse Reactions, Alerts Substance Reaction Severity Status Compazine Agitation Active hydrOXYzine Agitation Active sulfa drugs N&V - Nausea and vomiting Active Medications cyclobenzaprine 10 mg oral tablet 10 mg=1 tab, PO, qHS, for spasm, # 30 tab, 0 Refill(s) Start Date: 07/12/17 Status: Ordered furosemide 40 mg oral tablet 40 mg=1 tab, PO, qAM, # 30 tab, 0 Refill(s) Start Date: 07/12/17 Status: Ordered levothyroxine 25 mcg (0.025 mg) oral tablet 25 mcg=1 tab, PO, acBreakfst, # 30 tab, 0 Refill(s) Start Date: 07/12/17 Status: Ordered pantoprazole 40 mg oral delayed release tablet 40 mg=1 tab, PO, qAM, # 30 tab, 0 Refill(s) Start Date: 07/12/17 Status: Ordered Percocet 5/325 oral tablet 1 tab, PO, q4hr, PRN: for pain, 0 Refill(s) Start Date: 07/12/17 Status: Ordered Phenergan 25 mg oral tablet 25 mg=1 tab, PO, q4hr, for motion sickness, for nausea, # 20 tab, 0 Refill(s) Start Date: 07/12/17 Stop Date: 08/11/17 Status: Ordered venlafaxine 75 mg oral tablet 75 mg=1 tab, PO, BID, # 60 tab, 0 Refill(s) Start Date: 07/12/17 Status: Ordered Results Hematology Most recent to 1 oldest [Reference Range]: WBC Count [4.0-10.5 6.9 x10^3 cmm x10^3 cmm] (07/12/17 6:18 PM) RBC Count [4.00-5.40 4.18 X10^6 cmm X10^6 cmm] (07/12/17 6:18 PM) Hemoglobin 13.0 g/dL [12.0-16.0 g/dL] (07/12/17 6:18 PM) Hematocrit 37.4 % [37.0-47.0 %] (07/12/17 6:18 PM) MCV [78-100 fL] 89.5 fL (07/12/17 6:18 PM) MCH [27.0-31.0 pg] 31.1 pg *HI* (07/12/17 6:18 PM) MCHC [32.0-36.0 34.8 g/dL g/dL] (07/12/17 6:18 PM) RDW [11.5-14.0 %] 12.4 % (07/12/17 6:18 PM) Platelet Count 169 x10^3 cmm [150-450 x10^3 cmm] (07/12/17 6:18 PM) MPV [8.0-11.7 fL] 11.2 fL (07/12/17 6:18 PM) Neutrophil % 50.1 % [43.0-65.0 %] (07/12/17 6:18 PM) Lymphocyte % 33.6 % [20.5-45.5 %] (07/12/17 6:18 PM) Monocyte % [5.5-11.7 8.9 % %] (07/12/17 6:18 PM) Eosinophil % 7.0 % [0.9-2.9 %] *HI* (07/12/17 6:18 PM) Basophil % [0.2-1.0 0.1 % %] *LOW* (07/12/17 6:18 PM) Immature Granulocyte 0.3 % (07/12/17 6:18 PM) Immature Grans 0.0 X10^3 Absolute [0.00-0.05 (07/12/17 6:18 PM) X10^3] Neutrophil Abs Auto 3.4 X10^3 [1.72-6.83 X10^3] (07/12/17 6:18 PM) Lymphocyte Abs Auto 2.3 X10^3 [0.84-4.83 X10^3] (07/12/17 6:18 PM) Monocyte Abs Auto 0.6 X10^3 [0.24-1.26 X10^3] (07/12/17 6:18 PM) Eosinophil Abs Auto 0.5 X10^3 [0.04-0.32 X10^3] *HI* (07/12/17 6:18 PM) Basophil Abs Auto 0.0 X10^3 [0.00-0.11 X10^3] (07/12/17 6:18 PM) Differential Type AUTOMATED (07/12/17 6:18 PM) Chemistry Most recent to 1 oldest [Reference Range]: Sodium [135-145 136 mmol/L mmol/L] (07/12/17 6:18 PM) Potassium [3.6-5.0 3.5 mmol/L mmol/L] *LOW* (07/12/17 6:18 PM) Chloride [101-111 98 mmol/L mmol/L] *LOW* (07/12/17 6:18 PM) Carbon Dioxide Total 25 mmol/L [21-31 mmol/L] (07/12/17 6:18 PM) Anion Gap 13 mmol/L 1 (07/12/17 6:18 PM) Glucose Level 128 mg/dL [70-100 mg/dL] *HI* (07/12/17 6:18 PM) Blood Urea Nitrogen 11 mg/dL [6-20 mg/dL] (07/12/17 6:18 PM) Creatinine [0.5-1.2 0.9 mg/dL mg/dL] (07/12/17 6:18 PM) Calcium [8.5-10.5 9.1 mg/dL mg/dL] (07/12/17 6:18 PM) Total Protein 6.8 g/dL [6.0-8.0 g/dL] (07/12/17 6:18 PM) Albumin [3.2-5.5 4.2 g/dL g/dL] (07/12/17 6:18 PM) Alkaline Phosphatase 87 unit/L [42-121 unit/L] (07/12/17 6:18 PM) AST (SGOT) [10-42 18 unit/L unit/L] (07/12/17 6:18 PM) ALT (SGPT) [10-60 30 unit/L unit/L] (07/12/17 6:18 PM) Bilirubin Total 0.2 mg/dL [0.2-1.0 mg/dL] (07/12/17 6:18 PM) Calculated GFR [>60] >60.0 2 (07/12/17 6:18 PM) Lactic Acid [0.5-2.0 1.9 mmol/L mmol/L] (07/12/17 6:18 PM) Procalcitonin <0.05 ng/mL 3 [0.00-0.49 ng/mL] (07/12/17 6:18 PM) 1Result Comment: ANION GAP CALCULATION=NA-(CL+CO2) No reference range has been established. Value needs to be correlated with clinical evaluation. 2Result Comment: AVERAGE GFR FOR 40-49 YEARS OLD=99 mL/min/1.73 square meters CHRONIC KIDNEY DISEASE <60 mL/min/1.73 square meters KIDNEY FAILURE <15 mL/min/1.73 square meters MULTIPLY RESULT BY 1.210 IF PATIENT IS . GFR calculation (based on the modified MDRD Study Equation for IDMS calibrated creatinine) includes creatinine, age and sex only. This may NOT be accurate in cases of acute kidney failure, extremes in body size or muscle mass or unusually low or high creatine intake. 3Result Comment: Concentrations <0.5 ng/mL represent a low risk of severe sepsis and/or septic shock. Concentrations >2 ng/mL represent a high risk of severe sepsis and/or septic shock. Nevertheless, concentrations <0.5 ng/mL do not exclude an infection, on account of localized infections (without systemic signs) which can be associated with such low concentrations, or a systemic infection in its initial stages (<6 hours). Furthermore, increased procalcitonin can occur without infection. PCT concentrations between 0.5 and 2.0 ng/mL should be interpreted taking into account the patient's history. It is recommended to retest PCT within 6 to 24 hours if any concentrations <2 ng /mL are obtained. Urine Studies Most recent to 1 oldest [Reference Range]: Color, UA [YELL] YELLOW (07/12/17 7:16 PM) Clarity, UA [Clear] CLEAR (07/12/17 7:16 PM) Glucose, UA [NEG] NEGATIVE (07/12/17 7:16 PM) Bilirubin, UA [NEG] NEGATIVE (07/12/17 7:16 PM) Ketones, UA [NEG] NEGATIVE (07/12/17 7:16 PM) Specific Clio, UA 1.024 [1.003-1.030] (07/12/17 7:16 PM) Blood, UA [NEG] MODERATE *ABN* (07/12/17 7:16 PM) pH, UA [5.0-9.0] 6.0 (07/12/17 7:16 PM) Protein, UA [NEG 50 mg/dL mg/dL] *ABN* (07/12/17 7:16 PM) Urobilinogen, UA NORMAL [NORM] (07/12/17 7:16 PM) Nitrites, UA [NEG] NEGATIVE (07/12/17 7:16 PM) Leukocyte Esterase, NEGATIVE UA [NEG] (07/12/17 7:16 PM) WBC's, UA [OFIVE] 0-5 (07/12/17 7:16 PM) RBC, UA [OFIVE] 50 to 100 *ABN* (07/12/17 7:16 PM) Bacteria, UA [NEG] FEW *ABN* (07/12/17 7:16 PM) Squamous NEG - FEW Epithelials, UA (07/12/17 7:16 PM) [NEGFEW] Hyaline Casts [NEG] 2 to 5 *ABN* (07/12/17 7:16 PM) Yeast [NEG] FEW *ABN* (07/12/17 7:16 PM) Urine Culture NO CULTURE NEEDED Indicated [NOCULT] (07/12/17 7:16 PM) Immunizations No data available for this section Procedures No data available for this section Social History Social History Type Response Smoking Status Never smoker Functional Status COGNITIVE 07/12/17 Orientation Oriented x 3 Assessment and Plan No data available for this section Hospital Discharge Instructions Patient Education Seroma Follow Up Care 07/12/2017 17:00:11 With: Dr Valentine Address: Unknown When: 7-10 days Comments: Call the office to schedule follow up and report your visit and the identification of the seroma now 10 cm x 4 cm take your disc with abdominal CT and your lab work for today Your headache and gassy bloating feeling may be a side effect of the Zofran you have been prescribed for nausea. I would suggest you use Phenergan instead and a prescription is provided.
--- OUTSIDE RECORDS SUMMARY | 2018-06-27 18:33 | XMS REPORT ---
Author Author SIMÓN ECTOR [facility] Address [address] [place] [address] Care Team Providers Care Straight Line Edger Name Role Phone ECTOR GR Unavailable PROBLEMS Type Condition ICD9-CM Code BHM33-RH Code Onset Dates Condition Status SNOMED Code Problem Primary insomnia F51.01 Active 1138056 Problem Renal insufficiency N28.9 Active 227306287 Problem Moderate episode of recurrent major depressive disorder F33.1 Active 47201169 Problem Other chronic pain G89.29 Active 36690537 Problem Acquired hypothyroidism E03.9 Active 490301216 Problem Chronic pain syndrome G89.4 Active 416567984 Problem Difficulty concentrating R41.840 Active 21917002 Problem Fatigue, unspecified type R53.83 Active 25501005 Problem ADHD, predominantly inattentive type F90.0 Active 57361986 Problem Benign essential hypertension I10 Active 3165912 Problem Allergic rhinitis, unspecified allergic rhinitis type J30.9 Active 39458347 Problem Positive urine drug screen R82.5 Active 037353379 Problem Other hyperlipidemia E78.4 Active 96156292 Problem Postablative hypothyroidism E89.0 Active 276390288 Problem Uncomplicated asthma, unspecified asthma severity J45.909 Active 726939085 Problem Major depressive disorder, single episode, unspecified F32.9 Active 28648299 Problem Anxiety F41.9 Active 94343714 Problem Lumbar degenerative disc disease M51.36 Active 74990081 ALLERGIES No Information ENCOUNTERS Encounter Location Date Diagnosis [facility] [address] [id number] [address] Jun, [facility] [address] [address] May, [facility] [id number] [address] May, Acquired hypothyroidism E03.9 [place] [address] [address] May, [place] [id number] [place] [address] 72604- 9953 Apr, Acquired hypothyroidism E03.9 [place] [id number] [place] [address] 12570- 7795 Mar, Acquired hypothyroidism E03.9 ; Skin tag L91.8 and BMI 45.0- 49.9, adult Z68.42 [place] [id number] [place] [address] 82254- 5307 Dec, [place] [id number] [place] [address] 95089- 4281 Nov, Edema, unspecified type R60.9 [place] [id number] [place] [address] 49303- 7340 Nov, Postablative hypothyroidism E89.0 [place] [id number] [place] [address] 83862- 7371 Nov, [place] [id number] [place] [address] 03333- 9767 Nov, Generalized abdominal pain R10.84 ; History of abdominal hernia Z87.19 ; Pain of left calf M79.662 and BMI 45.0-49.9, adult Z68.42 [place] [id number] [place] [address] 55384- 0379 Sep, [place] [id number] [place] [address] 65797- 5038 Sep, [place] [id number] [place] [address] 80290- 4289 Sep, Postablative hypothyroidism E89.0 ; Pain in left knee M25.562 ; Edema, unspecified type R60.9 ; Multiple joint pain M25.50 and BMI 45.0-49.9, adult Z68.42 [place] [address] [place] [address] 14369- 2487 Aug, [facility] [id number] [place] [address] 12 Jul, 2017 History of swelling of feet Z87.39 [facility] [id number] [place] [address] 85483- 5061 Jul, [facility] [address] [address] Jul, Pain in left knee M25.562 ; Other chronic pain G89.29 and BMI 45.0-49.9, adult Z68.42 [place] [id number] [place] [address] 87374- 2237 Jun, [place] [id number] [place] [address] 83234- 6665 Jun, [place] [id number] [place] [address] 11500- 2819 May, Primary insomnia F51.01 [place] [id number] [place] [address] 32319- 8470 Apr, [facility] [id number] [place] [address] 60893- 2282 Apr, [place] [id number] [place] [address] 05535- 8221 Apr, Acute pain of left knee M25.562 ; Renal insufficiency N28.9 ; Fatigue, unspecified type R53.83 ; Postablative hypothyroidism E89.0 and BMI 40.0-44.9, adult Z68.41 [facility] [id number] [place] [address] 75880- 7451 03 Mar, 2017 Acute pain of left knee M25.562 [facility] [id number] [place] [address] 28305- 8817 Feb, Renal insufficiency N28.9 [place] [id number] [place] [address] 29968- 1170 Feb, [facility] [id number] [place] [address] 84065- 6078 Feb, [facility] [id number] [place] [address] 28598- 6802 Feb, [facility] [id number] [place] [address] 23746- 1582 Feb, Renal insufficiency N28.9 ; ADHD, predominantly inattentive type F90.0 ; Postablative hypothyroidism E89.0 ; Primary insomnia F51.01 ; Difficulty concentrating R41.840 ; History of swelling of feet Z87.39 ; Chronic pain syndrome G89.4 and Moderate episode of recurrent major depressive disorder F33.1 [facility] [id number] [place] [address] 97526- 7857 Feb, [facility] [id number] [place] [address] 89491- 3711 Feb, [facility] [id number] [place] [address] 05577- 8345 Jan, ADHD, predominantly inattentive type F90.0 [facility] [id number] [place] [address] 29589- 6445 Jan, Renal insufficiency N28.9 ; Postablative hypothyroidism E89.0 and History of swelling of feet Z87.39 [facility] [address] [place] [address] 55344- 1696 Jan, Chronic pain syndrome G89.4 [facility] [id number] [place] [address] 08754- 2822 Jan, [facility] [id number] [place] [address] 23102- 0205 Jan, Renal insufficiency N28.9 ; Primary insomnia F51.01 ; Difficulty concentrating R41.840 ; Postablative hypothyroidism E89.0 ; History of swelling of feet Z87.39 ; Chronic pain syndrome G89.4 and Moderate episode of recurrent major depressive disorder F33.1 [facility] [address] [address] Jan, [facility] [id number] [place] [address] 93830 -6357 Jan, Candidal dermatitis B37.2 [facility] [id number] [place] [address] 74516- 6459 Dec, [facility] [address] [id number] [address] Dec, [facility] [id number] [place] [address] 70863- 9396 Dec, [facility] [id number] [place] [address] 98821- 9166 Dec, Stool color black K92.1 [facility] [id number] [place] [address] 82647- 5958 Dec, Diarrhea of presumed infectious origin A09 [facility] [id number] [place] [address] 05029- 3670 Dec, Right lower quadrant abdominal pain R10.31 and Stool color black K92.1 [facility] [id number] [address] Nov, [facility] [id number] [place] [address] 21989- 1896 Nov, Visit for TB skin test Z11.1 and Pre-employment examination Z02.1 [place] [id number] [place] [address] 80096- 2126 Nov, [facility] [id number] [address] October, [facility] [id number] [place] [address] October, [facility] [id number] [place] [address] Aug, [facility] [id number] [place] [address] 09 Aug, 2016 Other fatigue R53.83 ; BMI 45.0-49.9, adult Z68.42 ; Edema, unspecified type R60.9 ; Benign essential hypertension I10 and Lumbar degenerative disc disease M51.36 [facility] [id number] [place] [address] 08 Aug, 2016 Skin tag L91.8 [facility] [address] [address] 06 Aug, 2016 Abnormal laboratory test result R89.9 [facility] [address] [id number] [place] [address] 20 Jul, 2016 Insomnia, unspecified type G47.00 [facility] [id number] [place] [address] 20 Jul, 2016 Benign essential hypertension I10 ; BMI 45.0-49.9, adult Z68.42 ; Lumbar degenerative disc disease M51.36 ; Edema, unspecified type R60.9 ; Other fatigue R53.83 and Hypothyroidism, unspecified type E03.9 [facility] [address] [id number] [place] [address] Jul, [facility] [id number] [place] [address] Jul, Benign essential hypertension I10 ; BMI 45.0-49.9, adult Z68.42 ; Lumbar degenerative disc disease M51.36 ; Edema, unspecified type R60.9 ; Other fatigue R53.83 and Hypothyroidism, unspecified type E03.9 [facility] [id number] [place] [address] Jun, [facility] [id number], [place] [address] Jun, [facility] [id number] [place] [address] Jun, Benign essential hypertension I10 ; Hypothyroidism, unspecified type E03.9 ; Other fatigue R53.83 ; Midline low back pain without sciatica, unspecified chronicity M54.5 and BMI 45.0-49.9, adult Z68.[address] [id number] Jun, Postablative hypothyroidism E89.0 ; Rhinopharyngitis J00 and Encounter for immunization Z23 [place] [id number] [place] [address] [id number] Jun, [address] [id number] May, [facility] [address] [id number], [place] [address] May, [place] [id number] [place] [address] [id number] May, [place] [id number] [place] [address] [id number] Apr, Hypothyroidism, unspecified type E03.9 [place] [address] [place] [address] [id number] Apr, Hypothyroidism, unspecified type E03.9 [place] [address] [place] [address] [id number] Apr, [place] [address] [place] [address] [id number] Mar, Hypothyroidism, unspecified type E03.9 ; Moderate single current episode of major depressive disorder F32.1 ; Other hyperlipidemia E78.4 and Elevated liver function tests R79.89 [facility] [address] [id number] [id number] Feb, [address]005[address]100[place] [id number] Dec, Moderate single current episode of major depressive disorder F32.1 [facility] [address]00565100[place] [id number] Nov, [place] [id number] [id number] Nov, [facility] [address] [id number] [id number] Nov, Hypothyroidism, unspecified type E03.9 ; Other hyperlipidemia E78.4 and Elevated liver function tests R79.89 [place] [address]00565100[place] [id number] Nov, 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 ; Hypothyroidism, unspecified type E03.9 ; Benign essential hypertension I10 and Uncomplicated asthma, unspecified asthma severity J45.909 [place] [address]005[address]100[place] [id number] Nov, 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 ; Hypothyroidism, unspecified type E03.9 ; Benign essential hypertension I10 and Uncomplicated asthma, unspecified asthma severity J45.909 [facility] [id number] [id number] October, [facility] [address]00565100[place] [id number] October, [address]100[place] [id number] October, Abnormal laboratory test result R89.9 [facility] [address]005[address]100[place] [id number] October, Status post bilateral oophorectomy Z90.722 [place] [address]00565100[place] [id number] Sep, [facility] [id number][place] [id number] Aug, [facility] [id number] [place] [address] [id number] Aug, Complex ovarian cyst N83.20 [facility] [id number] [place] [address] [id number] Aug, Other acute sinusitis, recurrence not specified J01.80 [facility] [id number] [place] [address] [id number] Aug, [place] [id number] [place] [address] 50884 2542 Jun, [place] [id number] [place] [address] [id number] Jun, [place] [address] [place] [address] [id number] May, Allergic rhinitis, unspecified allergic rhinitis type J30.9 [place] [id number] [place] [address] 785648- 8573 May, [facility] [address] [place] [id number] [place] [address] [id number] Mar, [facility] [address] [place] [id number] [place] [address] [id number] Mar, [facility] [address] [place] [address] [place] [address] [id number] Jan, Hypothyroidism 244.9 and Cyst in hand 727.43 [place] [address] [place] [address] [id number] Jan, [facility] [address] [place] [address] [place] [address] [id number] Dec, [facility] [address] [place] [address] [phone] Dec, Acute sinusitis 461.9 and Cough 786.2 [place] [address] [place] [address] [id number] Dec, Insect bite 919.4 [place] [address] [id number] Nov, [place] [address] [place] [address] [id number] Nov, [place] [address] [place] [address] [id number] Sep, Obesity, morbid 278.01 ; Sleep apnea, obstructive 327.23 and Fatigue due to sleep pattern disturbance 780.79 [facility] [address] [address]127- 2546 Sep, [facility] [address] 68803- 2546 Sep, [place] [address] [place] [address] [id number] Aug, [facility] [id number] [place] [address] 02621- 2546 Aug, [place] [address] [place] [address] [id number] Jul, [facility] [id number] [place] [address] 66267- 2546 Jul, [facility] [id number] [place] [address] 01382- 2546 Jul, [place] [address] [place] [address] [id number] Jul, [place] [address] [place] [address] [id number] Jun, [facility] [address] [place] [address]- 4426 Jun, [place] [id number][place] [phone] May, [facility] [address] [address]- 2846 May, [facility] [address] [address]- 4570 Mar, [facility] [address] [place] [address] 73781- 7627 Mar, [facility] [id number] [place] [address] 51943- 1710 Mar, [place] [address] [place] [address] [id number] Mar, [facility] [id number] [place] [address] 01804- 9076 Mar, [facility] [address] [address]- 6061 Mar, [facility] [address] [place] [address] 34350- 3402 Mar, [place] [address]100[place] [id number] Mar, [facility] [address] [address] 8368 Mar, [place] [id number][place] [id number] Mar, [facility] [address] [address]- 8308 Mar, IMMUNIZATIONS No Known Immunizations SOCIAL HISTORY Never Assessed REASON FOR VISIT Refill request PLAN OF CARE VITAL SIGNS MEDICATIONS Medication Instructions Dosage Frequency Start Date End Date Duration Status Meloxicam 15 mg Orally Once a day 1 tablet 24h Jan, 30 day(s) Active Levothyroxine Sodium 50 MCG Orally Once a day 1 tablet on an empty stomach in the morning 24h 30 days Active Venlafaxine HCl 75 MG Orally Twice a day TAKE ONE TABLET BY MOUTH TWICE DAILY WITH FOOD 12h 30 Active Ventolin HFA cfc free 90 mcg/inh Inhalation every 4 hours inhale 2-4 puff by Inhalation route as needed every 4 hours PRN for cough or wheeze 4h Jul, Active Albuterol Sulfate (2.5 MG/3ML) 0.083% Inhalation 4 times a day 3 ml as needed 6h Jul, Active Furosemide 40 mg Orally Once a day 1 tablet 24h Active RESULTS No Results PROCEDURES No Known [...] repair 09/2015 Surgical History Abdominal Hernia Repair 2017 Hospitalization History Vomiting 2011 Hospitalization History Asthma [facility]ac Hospitalization History Mononucleosis Hospitalization History Pneumonia Hospitalization History Surgery(s) only Hospitalization History chest pain 11/2016 Hospitalization History [facility]- Diarrhea/abdominal pain 11/2016 Hospitalization History [facility] for heart beating funny 03/2018
--- OUTSIDE RECORDS SUMMARY | 2018-06-27 18:34 | XMS REPORT ---
Author Author SIMÓN ECTOR [facility] Address [address] [place] [address] Care Team Providers Care Riprap Man Name Role Phone ECTOR GR Unavailable PROBLEMS Type Condition ICD9-CM Code NGD66-ZE Code Onset Dates Condition Status SNOMED Code Problem Primary insomnia F51.01 Active 8639272 Problem Renal insufficiency N28.9 Active 446684438 Problem Moderate episode of recurrent major depressive disorder F33.1 Active 77626469 Problem Other chronic pain G89.29 Active 10533353 Problem Acquired hypothyroidism E03.9 Active 861718145 Problem Chronic pain syndrome G89.4 Active 640961295 Problem Difficulty concentrating R41.840 Active 28596162 Problem Fatigue, unspecified type R53.83 Active 83930248 Problem ADHD, predominantly inattentive type F90.0 Active 59563953 Problem Benign essential hypertension I10 Active 3580210 Problem Allergic rhinitis, unspecified allergic rhinitis type J30.9 Active 75875313 Problem Positive urine drug screen R82.5 Active 735088733 Problem Other hyperlipidemia E78.4 Active 33136825 Problem Postablative hypothyroidism E89.0 Active 349090832 Problem Uncomplicated asthma, unspecified asthma severity J45.909 Active 000094507 Problem Major depressive disorder, single episode, unspecified F32.9 Active 17125557 Problem Anxiety F41.9 Active 14196740 Problem Lumbar degenerative disc disease M51.36 Active 26374684 ALLERGIES No Information ENCOUNTERS Encounter Location Date Diagnosis [facility] [place] [address] [facility] [id number], [place] [address] Apr, Acquired hypothyroidism E03.9 [facility] [place] [address], [place] [address] Mar, Acquired hypothyroidism E03.9 ; Skin tag L91.8 and BMI 45.0- 49.9, adult Z68.42 [facility] [place] [address], [place] [address] Dec, [facility] [place] [id number] [place] [address] 38974- 6407 Nov, Edema, unspecified type R60.9 [facility] [place] [address] [place] [address] 25623- 9151 Nov, Postablative hypothyroidism E89.0 [facility] [place] [id number] [place] [address] 54805- 9995 Nov, [facility] [place] [address] [place] [address] 27752- 2744 Nov, Generalized abdominal pain R10.84 ; History of abdominal hernia Z87.19 ; Pain of left calf M79.662 and BMI 45.0-49.9, adult Z68.42 [place] [id number] [place] [address] 80802- 4345 Sep, [facility] [place] [address] [place] [address] 47936- 7283 Sep, [place] [id number] [place] [address] 78736- 7019 Sep, Postablative hypothyroidism E89.0 ; Pain in left knee M25.562 ; Edema, unspecified type R60.9 ; Multiple joint pain M25.50 and BMI 45.0-49.9, adult Z68.42 [facility] [place] [address], [place] [address] Aug, [facility] [id number], [place] [address] Jul, History of swelling of feet Z87.39 [facility] [place] [address], [place] [address] Jul, [facility] [address] [place] [address] 14990 -1898 Jul, Pain in left knee M25.562 ; Other chronic pain G89.29 and BMI 45.0-49.9, adult Z68.42 [facility] [place] [id number] [place] [address] 67524- 9579 Jun, [facility] [place] [id number] [place] [address] 05412- 3607 Jun, [facility] [place] [address] [address]- [address]272 May, Primary insomnia F51.01 [facility] [place] [address] 21534- 9189 Apr, [place] [address] [address]- 7132 Apr, [place] [id number] [place] [address] 91359- 1629 Apr, Acute pain of left knee M25.562 ; Renal insufficiency N28.9 ; Fatigue, unspecified type R53.83 ; Postablative hypothyroidism E89.0 and BMI 40.0-44.9, adult Z68.41 [facility] [place] [id number] [place] [address] 28451- 9092 Mar, Acute pain of left knee M25.562 [facility] [place] [id number] [place] [address] 86194- 1109 Feb, Renal insufficiency N28.9 [facility] [place] [id number] [place] [address] 21063- 1911 Feb, [facility] [id number] [place] [address] 06878- 7381 Feb, [place] [id number] [place] [address] 25097- 9087 Feb, [facility] [place] [id number] [place] [address] 51870- 9890 Feb, Renal insufficiency N28.9 ; ADHD, predominantly inattentive type F90.0 ; Postablative hypothyroidism E89.0 ; Primary insomnia F51.01 ; Difficulty concentrating R41.840 ; History of swelling of feet Z87.39 ; Chronic pain syndrome G89.4 and Moderate episode of recurrent major depressive disorder F33.1 [facility] [place] [id number] [place] [address] 25728- 4289 Feb, [facility] [place] [address] 79783- 6818 Feb, [place] [id number] [place] [address] 35454- 8979 Jan, ADHD, predominantly inattentive type F90.0 [place] [id number] [place] [address] 06766- 8597 Jan, Renal insufficiency N28.9 ; Postablative hypothyroidism E89.0 and History of swelling of feet Z87.39 [place] [id number] [place] [address] 63004- 4282 Jan, Chronic pain syndrome G89.4 [facility] [place] [id number] [place] [address] 79062- 8179 Jan, [place] [id number] [place] [address] 71348- 1950 Jan, Renal insufficiency N28.9 ; Primary insomnia F51.01 ; Difficulty concentrating R41.840 ; Postablative hypothyroidism E89.0 ; History of swelling of feet Z87.39 ; Chronic pain syndrome G89.4 and Moderate episode of recurrent major depressive disorder F33.1 [facility] [place] [id number] [place] [address] 68592- 3952 Jan, [facility] [id number] [place] [address] 67948 -8204 Jan, Candidal dermatitis B37.2 [facility] [place] [id number] [place] [address] 42835- 1258 Dec, [facility] [id number], [place] [address] 17 Dec, 2016 [facility] [id number] [place] [address] 33306- 1812 Dec, [facility] [place] [id number] [place] [address] 32847- 2389 Dec, Stool color black K92.1 [facility] [place] [id number] [place] [address] 18223- 2156 Dec, Diarrhea of presumed infectious origin A09 [place] [id number] [place] [address] 79351- 0851 Dec, Right lower quadrant abdominal pain R10.31 and Stool color black K92.1 [facility] [address] [place] [id number] [place] [address] Nov, [facility] [place] [id number] [place] [address] 01956- 9303 Nov, Visit for TB skin test Z11.1 and Pre-employment examination Z02.1 [place] [id number] [place] [address] 30754- 9094 Nov, [facility] [id number] [place] [address] October, [facility] [address] [place] [id number] [place] [address] October, [facility] [address] [place] [id number] [place] [address] Aug, [facility] [address] [place] [id number] [place] [address] Aug, Other fatigue R53.83 ; BMI 45.0-49.9, adult Z68.42 ; Edema, unspecified type R60.9 ; Benign essential hypertension I10 and Lumbar degenerative disc disease M51.36 [facility] [address] [place] [address] 08 Aug, 2016 Skin tag L91.8 [facility] [address] [place] [id number] [place] [address] Aug, Abnormal laboratory test result R89.9 [facility] [address] [place] [id number] [place] [address] 20 Jul, 2016 Insomnia, unspecified type G47.00 [facility] [address] [place] [id number] [place] [address] 20 Jul, 2016 Benign essential hypertension I10 ; BMI 45.0-49.9, adult Z68.42 ; Lumbar degenerative disc disease M51.36 ; Edema, unspecified type R60.9 ; Other fatigue R53.83 and Hypothyroidism, unspecified type E03.9 [facility] [address] [place] [id number] [place] [address] Jul, [facility] [address] [place] [id number] [place] [address] Jul, Benign essential hypertension I10 ; BMI 45.0-49.9, adult Z68.42 ; Lumbar degenerative disc disease M51.36 ; Edema, unspecified type R60.9 ; Other fatigue R53.83 and Hypothyroidism, unspecified type E03.9 [facility] [id number] [place] [address] Jun, [facility] [address] [place] [id number] [place] [address] Jun, [facility] [id number] [place] [address] Jun, Benign essential hypertension I10 ; Hypothyroidism, unspecified type E03.9 ; Other fatigue R53.83 ; Midline low back pain without sciatica, unspecified chronicity M54.5 and BMI 45.0-49.9, adult Z68.42 [facility] [address], [place] [address] Jun, Postablative hypothyroidism E89.0 ; Rhinopharyngitis J00 and Encounter for immunization Z23 [facility] [address] [id number] Jun, [facility] [address] [id number] [id number] May, [facility] [address] [place] [id number], [place] [address] May, [facility] [id number] [id number] May, [facility] [id number] [place] [address] [id number] Apr, Hypothyroidism, unspecified type E03.9 [facility] [id number] [id number] Apr, Hypothyroidism, unspecified type E03.9 [facility] [address] [id number] Apr, [facility] [address] [id number] Mar, Hypothyroidism, unspecified type E03.9 ; Moderate single current episode of major depressive disorder F32.1 ; Other hyperlipidemia E78.4 and Elevated liver function tests R79.89 [facility] [address] [id number] [id number] Feb, [facility] [address] [id number] Dec, Moderate single current episode of major depressive disorder F32.1 [facility] [address] [id number] Nov, [facility] [address] [id number] Nov, [facility] [address] [id number] [id number] Nov, Hypothyroidism, unspecified type E03.9 ; Other hyperlipidemia E78.4 and Elevated liver function tests R79.89 [facility] [address] [address] Nov, 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 ; Hypothyroidism, unspecified type E03.9 ; Benign essential hypertension I10 and Uncomplicated asthma, unspecified asthma severity J45.909 [place] [address] [place] [address] [place] [address] [id number] Nov, 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 ; Hypothyroidism, unspecified type E03.9 ; Benign essential hypertension I10 and Uncomplicated asthma, unspecified asthma severity J45.909 [address] [address] [place] [id number] October, [place] [address] [place] [id number] [id number] October, [place] [address] [place] [address] [id number] October, Abnormal laboratory test result R89.9 [place] [address] [id number] October, Status post bilateral oophorectomy Z90.722 [place] [address] [id number] Sep, [place] [address] [id number] Aug, [place] [address] [place] [address] [place] [address] [id number] Aug, Complex ovarian cyst N83.20 [address] [id number] Aug, Other acute sinusitis, recurrence not specified J01.80 [facility] [address] [place] [address] [id number] Aug, [facility] [id number] [place] [address] 98405- 2547 Jun, [facility] [address] [place] [id number] [place] [address] [id number] Jun, [facility] [address] [place] [address] [id number] May, Allergic rhinitis, unspecified allergic rhinitis type J30.9 [facility] [id number] [place] [address] 27298- 2093 May, [facility] [address] [place] [id number] [place] [address] [id number] Mar, [place] [address] [place] [address] [id number] Mar, [facility] [address] [place] [id number] [place] [address] [id number] Jan, Hypothyroidism 244.9 and Cyst in hand 727.43 [place] [address] [place] [address] [id number] Jan, [facility] [address] [place] [id number] [place] [address] [id number] Dec, [place] [address] [place] [address] [id number] Dec, Acute sinusitis 461.9 and Cough 786.2 [place] [address] [place] [address] [id number] Dec, Insect bite 919.4 [facility] [address] [place] [address] [id number] Nov, [place] [address] [place] [address] [id number] Nov, [facility] [address]L70648551[place], [place] [id number] Sep, Obesity, morbid 278.01 ; Sleep apnea, obstructive 327.23 and Fatigue due to sleep pattern disturbance 780.79 [facility] [id number] [place] [address] 40917- 1006 Sep, [facility] [place] [id number] [place] [address] 37179- 3571 Sep, [facility] [id number] [place] [address] [id number] Aug, [facility] [id number] [place] [address] 08043- 8496 Aug, [place] [address] [place] [address] [id number] Jul, [facility] [place] [id number] [place] [address] 05534- 8503 Jul, [facility] [id number] [place] [address] 15353- 9703 Jul, [facility] [address] [place] [id number] [place] [address] [id number] Jul, [place] [address] [place] [address] [id number] Jun, [facility] [place] [id number] [place] [address] 69735- 1755 Jun, [place] [address] [place] [address] [id number] May, [facility] [id number] [place] [address] 52033- 6716 May, [facility] [place] [address] [place] [address] 48817- 4165 Mar, [facility] [id number] [place] [address] 42925- 2696 Mar, [facility] [id number], [place] [address]- 8680 Mar, [address], [place] [id number] Mar, [facility] [place] [id number], [place] [address]- 0526 Mar, [facility] [address], [place] [address]- 7226 Mar, [facility] [address], [place] [address]- 8206 Mar, [address], [place] [id number] Mar, [facility] [place] [address], [place] [address]- 2846 Mar, [place] [id number] [id number] Mar, [facility] [address], [place] [address]- 4706 Mar, IMMUNIZATIONS No Known Immunizations SOCIAL HISTORY Never Assessed REASON FOR VISIT Refill request PLAN OF CARE VITAL SIGNS MEDICATIONS Medication Instructions Dosage Frequency Start Date End Date Duration Status Levothyroxine Sodium 50 MCG Orally Once a day 1 tablet on an empty stomach in the morning 24h 30 days Active Meloxicam 15 mg Orally Once a day 1 tablet 24h 24 Jan, 2017 30 day(s) Active Venlafaxine HCl 75 MG Orally Twice a day TAKE ONE TABLET BY MOUTH TWICE DAILY WITH FOOD 12h 30 Active RESULTS No Results PROCEDURES No Known [...] History [facility]- Diarrhea/abdominal pain 11/2016 Hospitalization History [facility] ER for heart beating funny 03/2018
--- OUTSIDE RECORDS SUMMARY | 2018-06-27 18:34 | XMS REPORT ---
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 Name Role Phone ECTOR GR Unavailable PROBLEMS Type Condition ICD9-CM Code KSX88-IS Code Onset Dates Condition Status SNOMED Code Problem Primary insomnia F51.01 Active 4020564 Problem Renal insufficiency N28.9 Active 180851635 Problem Moderate episode of recurrent major depressive disorder F33.1 Active 71769533 Problem Other chronic pain G89.29 Active 18207779 Problem Acquired hypothyroidism E03.9 Active 650813449 Problem Chronic pain syndrome G89.4 Active 112063879 Problem Difficulty concentrating R41.840 Active 80920982 Problem Fatigue, unspecified type R53.83 Active 17719047 Problem ADHD, predominantly inattentive type F90.0 Active 80376651 Problem Benign essential hypertension I10 Active 0846836 Problem Allergic rhinitis, unspecified allergic rhinitis type J30.9 Active 47681607 Problem Positive urine drug screen R82.5 Active 584326858 Problem Other hyperlipidemia E78.4 Active 60231171 Problem Postablative hypothyroidism E89.0 Active 799411327 Problem Uncomplicated asthma, unspecified asthma severity J45.909 Active 681681122 Problem Major depressive disorder, single episode, unspecified F32.9 Active 50035779 Problem Anxiety F41.9 Active 61289623 Problem Lumbar degenerative disc disease M51.36 Active 25653192 ALLERGIES Substance Reaction Event Type Date Status Compazine Unknown Drug Allergy Mar, Active Tetracycline HCl nausea Drug Allergy Mar, Active Sulfamethoxazole-Trimethoprim hives Drug Allergy Mar, Active Lisinopril cough Drug Allergy Mar, Active HydrOXYzine HCl Unknown Drug Allergy Mar, Active ENCOUNTERS Encounter Location Date Diagnosis [facility] [address] [facility] [id number] [place] [address] Mar, Acquired hypothyroidism E03.9 ; Skin tag L91.8 and BMI 45.0- 49.9, adult Z68.42 [facility] [address] [address] Dec, [facility] [id number] [place] [address] 16472[address] 9253 Nov, Edema, unspecified type R60.9 [facility] [id number] [place] [address] 81028- 4575 Nov, Postablative hypothyroidism E89.0 [facility] [address] [address] Nov, [facility] [id number] [place] [address] 76199- 5391 Nov, Generalized abdominal pain R10.84 ; History of abdominal hernia Z87.19 ; Pain of left calf M79.662 and BMI 45.0-49.9, adult Z68.42 [facility] [id number] [place] [address] 40585- 7351 16 Sep, 2017 [facility] [id number] [place] [address] 97681- 1656 Sep, [facility] [address] [place] [address] 61463- 2573 Sep, Postablative hypothyroidism E89.0 ; Pain in left knee M25.562 ; Edema, unspecified type R60.9 ; Multiple joint pain M25.50 and BMI 45.0-49.9, adult Z68.42 [facility] [address] [address] Aug, [facility] [address] [id number] [address] 12 Jul, 2017 History of swelling of feet Z87.39 [facility] [address], [place] [address] Jul, [facility] [id number] [place] [address] 25791 [address]4637 Jul, Pain in left knee M25.562 ; Other chronic pain G89.29 and BMI 45.0-49.9, adult Z68.42 [facility] [id number] [place] [address] 54998- 1210 Jun, [facility] [id number] [place] [address] 87685- 9943 Jun, [facility] [id number] [place] [address] 28053- 4660 May, Primary insomnia F51.01 [place] [address] [address] Apr, [place] [id number] [place] [address] 10100- 9620 Apr, [place] [id number] [place] [address] 06788- 6600 Apr, Acute pain of left knee M25.562 ; Renal insufficiency N28.9 ; Fatigue, unspecified type R53.83 ; Postablative hypothyroidism E89.0 and BMI 40.0-44.9, adult Z68.41 [facility] [address] [place] [address] 28999- 2168 Mar, Acute pain of left knee M25.562 [facility] [id number] [place] [address] 00461- 7402 Feb, Renal insufficiency N28.9 [facility] [id number] [place] [address] 98034- 1944 Feb, [facility] [id number] [place] [address] 89040- 4949 Feb, [facility] [place] [id number] [place] [address] 54763- 8858 Feb, [facility] [id number] [place] [address] 01714- 9174 Feb, Renal insufficiency N28.9 ; ADHD, predominantly inattentive type F90.0 ; Postablative hypothyroidism E89.0 ; Primary insomnia F51.01 ; Difficulty concentrating R41.840 ; History of swelling of feet Z87.39 ; Chronic pain syndrome G89.4 and Moderate episode of recurrent major depressive disorder F33.1 [place] [id number] [place] [address] 08959- 9863 Feb, [facility] [address] [address] Feb, [facility] [address] [address]- [address] Jan, ADHD, predominantly inattentive type F90.0 [place] [address] [address]- [address] Jan, Renal insufficiency N28.9 ; Postablative hypothyroidism E89.0 and History of swelling of feet Z87.39 [facility] [id number] [place] [address] 65372- 4001 Jan, Chronic pain syndrome G89.4 [place] [address] [address]- [address] Jan, [place] [id number] [place] [address] 44155- 0458 Jan, Renal insufficiency N28.9 ; Primary insomnia F51.01 ; Difficulty concentrating R41.840 ; Postablative hypothyroidism E89.0 ; History of swelling of feet Z87.39 ; Chronic pain syndrome G89.4 and Moderate episode of recurrent major depressive disorder F33.1 [facility] [address] [address]- [address] Jan, [facility] [id number] [place] [address] 90286 -6715 Jan, Candidal dermatitis B37.2 [facility] [address] [place] [address] Dec, [facility] [id number], [place] [address] Dec, [facility] [id number] [place] [address] 32089- 1805 Dec, [facility] [id number] [place] [address] 91671- 6031 Dec, Stool color black K92.1 [place] [id number] [place] [address] 23874- 2532 Dec, Diarrhea of presumed infectious origin A09 [place] [id number] [place] [address] 51284- 5838 Dec, Right lower quadrant abdominal pain R10.31 and Stool color black K92.1 [facility] [id number] [place] [address] Nov, [place] [id number] [place] [address] 10345- 1665 Nov, Visit for TB skin test Z11.1 and Pre-employment examination Z02.1 [place] [id number] [place] [address] 83119- 5603 Nov, [facility] [id number], [place] [address] October, [facility] [id number] [place] [address] October, [facility] [id number] [place] [address] Aug, [facility] [id number] [place] [address] Aug, Other fatigue R53.83 ; BMI 45.0-49.9, adult Z68.42 ; Edema, unspecified type R60.9 ; Benign essential hypertension I10 and Lumbar degenerative disc disease M51.36 [facility] [id number], [place] [address] 08 Aug, 2016 Skin tag L91.8 [facility] [id number] [place] [address] 06 Aug, 2016 Abnormal laboratory test result R89.9 [facility] [id number] [place] [address] Jul, Insomnia, unspecified type G47.00 [facility] [id number] [place] [address] Jul, Benign essential hypertension I10 ; BMI 45.0-49.9, adult Z68.42 ; Lumbar degenerative disc disease M51.36 ; Edema, unspecified type R60.9 ; Other fatigue R53.83 and Hypothyroidism, unspecified type E03.9 [facility] [id number] [place] [address] Jul, [facility] [id number] [place] [address] Jul, Benign essential hypertension I10 ; BMI 45.0-49.9, adult Z68.42 ; Lumbar degenerative disc disease M51.36 ; Edema, unspecified type R60.9 ; Other fatigue R53.83 and Hypothyroidism, unspecified type E03.9 [facility] [id number] [place] [address] Jun, [facility] [id number] [place] [address] Jun, [facility] [id number] [place] [address] Jun, Benign essential hypertension I10 ; Hypothyroidism, unspecified type E03.9 ; Other fatigue R53.83 ; Midline low back pain without sciatica, unspecified chronicity M54.5 and BMI 45.0-49.9, adult Z68.42 [facility] [address] [id number] Jun, Postablative hypothyroidism E89.0 ; Rhinopharyngitis J00 and Encounter for immunization Z23 [facility] [id number][place] [id number] Jun, [facility] [address] [place] [id number] [place] [address] [id number] May, [facility] [id number] [place] [address] May, [place] [id number] [place] [address] [id number] May, [place] [id number] [place] [address] [phone] Apr, Hypothyroidism, unspecified type E03.9 [place] [id number] [phone] Apr, Hypothyroidism, unspecified type E03.9 [id number] [place] [address] [phone] Apr, [address] [id number] Mar, Hypothyroidism, unspecified type E03.9 ; Moderate single current episode of major depressive disorder F32.1 ; Other hyperlipidemia E78.4 and Elevated liver function tests R79.89 [facility] [id number] [phone] Feb, [place] [id number] [place] [address] [id number] Dec, Moderate single current episode of major depressive disorder F32.1 [address] [id number] Nov, [place] [address] [address] [id number] Nov, [facility] [address] [id number] [id number] Nov, Hypothyroidism, unspecified type E03.9 ; Other hyperlipidemia E78.4 and Elevated liver function tests R79.89 [place] [id number] [id number] [place] [address] [id number] Nov, 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 ; Hypothyroidism, unspecified type E03.9 ; Benign essential hypertension I10 and Uncomplicated asthma, unspecified asthma severity J45.909 [id number] [place] [address] [id number] Nov, 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 ; Hypothyroidism, unspecified type E03.9 ; Benign essential hypertension I10 and Uncomplicated asthma, unspecified asthma severity J45.909 [id number] [place] [address] [id number] October, [place] [id number] [place] [address] [id number] October, [place] [id number] [place] [address] [id number] October, Abnormal laboratory test result R89.9 [address] [place] [id number] [place] [address] [id number] October, Status post bilateral oophorectomy Z90.722 [id number] [place] [address] [id number] Sep, [place] [id number] [place] [address] [id number] Aug, [place] [id number] [place] [address] [id number] Aug, Complex ovarian cyst N83.20 [address] [id number] [place] [address] [id number] Aug, Other acute sinusitis, recurrence not specified J01.80 [address] [place] [address] [id number] Aug, [facility] [id number], [place] [address] Jun, [address] [place] [id number] [place] [address] [id number] Jun, [place] [id number] [place] [address] [id number] May, Allergic rhinitis, unspecified allergic rhinitis type J30.9 [facility] [address] [place] [address] 540937- 5398 May, [place] [id number] [place] [address] [id number] Mar, [place] [id number] [place] [address] [id number] Mar, [place] [id number] [place] [address] [id number] Jan, Hypothyroidism 244.9 and Cyst in hand 727.43 [place] [id number] [place] [address] [id number] Jan, [place] [id number] [place] [address] [id number] Dec, [place] [id number] [place] [address] [id number] Dec, Acute sinusitis 461.9 and Cough 786.2 [address] [id number] [place] [address] [id number] Dec, Insect bite 919.4 [place] [address] [id number] Nov, [place] [id number] [id number] Nov, [facility] [address] [place] [id number] [place] [address] [id number] Sep, Obesity, morbid 278.01 ; Sleep apnea, obstructive 327.23 and Fatigue due to sleep pattern disturbance 780.79 [facility] [id number] [place] [address] 86762- 2546 Sep, [facility] [id number] [place] [address] 65562- 2546 Sep, [facility] [address] [place] [id number] [place] [address] [id number] Aug, [facility] [id number] [place] [address] 01173- 2546 Aug, [place] [id number] [place] [address] [id number] Jul, [facility] [id number] [place] [address] 04844- 2546 Jul, [facility] [id number] [place] [address] 77545- 2546 Jul, [place] [id number] [place] [address] [id number] Jul, [place] [id number] [place] [address] [id number] Jun, [facility] [id number] [place] [address] 10758- 2546 Jun, [place] [id number] [place] [address] [id number] May, [facility] [id number] [place] [address] 01439- 2546 May, [facility] [id number] [place] [address] 30663- 8631 Mar, [facility] [address], [place] [address]- 1480 Mar, [facility] [address], [place] [address] Mar, [facility] [id number][place] [phone] Mar, [facility] [id number], [place] [address]- 6268 Mar, [facility] [id number] [place] [address] 28302- 0569 Mar, [facility] [id number], [place] [address]- 9526 Mar, [facility] [id number][place] [id number] Mar, [facility] [address], [place] [address]- 3956 Mar, [facility] [id number] [place] [address] [id number] Mar, [facility] [address], [place] [address]- [address] Mar, IMMUNIZATIONS No Known Immunizations SOCIAL HISTORY Never Assessed REASON FOR VISIT bump on neck that has been there for awhile. Pt states she has had it looked at before and they said it was a pimple and if it came back to have it looked at [facility], Weight gain [facility], Would like a sleep study if medicare will cover it [place] [facility] PLAN OF CARE Activity Details Follow Up 6 Weeks w PCP Reason:hypothyroidism VITAL SIGNS Height 67.5 in 2018-04-19 Weight 309.6 lbs 2018-04-19 Temperature 98.1 degrees Fahrenheit 2018-04-19 Heart Rate 73 bpm 2018-04-19 Respiratory Rate 20 2018-04-19 BMI 47.77 kg/m2 2018-04-19 Blood pressure systolic 128 mmHg 2018-04-19 Blood pressure diastolic 84 mmHg 2018-04-19 MEDICATIONS Medication Instructions Dosage Frequency Start Date End Date Duration Status Lasix 40 mg Orally Once a day 1 1/2 tablet 24h Nov, 30 day(s) Active Albuterol Sulfate 2.5 mg /3 mL (0.083 %) 1 Each by Inhalation route every 4 hours for cough and wheeze PRN for wheezing or cough Jul, Active Knee Brace - Wear knee brace when up and about Apr, Active Ventolin HFA 90 mcg/actuation inhale 2-4 puff by Inhalation route as needed every 4 hours PRN for cough or wheeze Jul, Active Levothyroxine Sodium 50 MCG Orally Once a day 1 tablet on an empty stomach in the morning 24h 30 days Active Cyclobenzaprine HCl 10 mg Orally Three times a day 1 tablet as needed 8h Active Claritin 10 MG Orally Once a day 1 tablet 24h Active Venlafaxine HCl 75 MG Orally Twice a day TAKE ONE TABLET BY MOUTH TWICE DAILY WITH FOOD 12h 30 Active Meloxicam 15 mg Orally Once a day 1 tablet 24h Jan, Apr, 30 day(s) Active Zofran ODT 4 MG Active Gabapentin 300 MG Orally 3 times a day 1 capsule 8h 28 Active Furosemide 40 mg Orally Once a [...] History KU- Diarrhea/abdominal pain 11/2016 Hospitalization History [facility] ER for heart beating funny 03/2018
--- OUTSIDE RECORDS SUMMARY | 2018-06-27 18:34 | XMS REPORT ---
Author Author SIMÓN ECTOR [facility] Address [address] [place] [address] Care Team Providers Care Rental Sales Representative Name Role Phone ECTOR GR Unavailable PROBLEMS Type Condition ICD9-CM Code FQO19-YI Code Onset Dates Condition Status SNOMED Code Problem Primary insomnia F51.01 Active 5722116 Problem Renal insufficiency N28.9 Active 136875485 Problem Moderate episode of recurrent major depressive disorder F33.1 Active 43567167 Problem Other chronic pain G89.29 Active 61610597 Problem Acquired hypothyroidism E03.9 Active 321985518 Problem Chronic pain syndrome G89.4 Active 983059439 Problem Difficulty concentrating R41.840 Active 99061929 Problem Fatigue, unspecified type R53.83 Active 94228698 Problem ADHD, predominantly inattentive type F90.0 Active 80876895 Problem Benign essential hypertension I10 Active 4854612 Problem Allergic rhinitis, unspecified allergic rhinitis type J30.9 Active 36204061 Problem Positive urine drug screen R82.5 Active 707341943 Problem Other hyperlipidemia E78.4 Active 76483003 Problem Postablative hypothyroidism E89.0 Active 431956498 Problem Uncomplicated asthma, unspecified asthma severity J45.909 Active 301434827 Problem Major depressive disorder, single episode, unspecified F32.9 Active 42051222 Problem Anxiety F41.9 Active 08629413 Problem Lumbar degenerative disc disease M51.36 Active 97216312 ALLERGIES No Information ENCOUNTERS Encounter Location Date Diagnosis [facility] [address] [facility] [id number] [address] Jun, [facility] [address] [address] May, [facility] [id number] [address] Apr, Acquired hypothyroidism E03.9 [place] [address] [place] [address] 50005- 6143 Mar, Acquired hypothyroidism E03.9 ; Skin tag L91.8 and BMI 45.0- 49.9, adult Z68.42 [facility] [id number] [place] [address] 37359- 5130 Dec, [facility] [id number] [place] [address] 33779- 4759 Nov, Edema, unspecified type R60.9 [facility] [id number] [place] [address] 79678- 9120 Nov, Postablative hypothyroidism E89.0 [facility] [id number] [place] [address] 78596- 5051 Nov, [facility] [id number] [place] [address] 90852- 7330 Nov, Generalized abdominal pain R10.84 ; History of abdominal hernia Z87.19 ; Pain of left calf M79.662 and BMI 45.0-49.9, adult Z68.42 [facility] [id number] [place] [address] 38081- 9655 16 Sep, 2017 [facility] [address] [place] [address] 47795- 4785 Sep, [facility] [id number] [place] [address] 78323- 4571 Sep, Postablative hypothyroidism E89.0 ; Pain in left knee M25.562 ; Edema, unspecified type R60.9 ; Multiple joint pain M25.50 and BMI 45.0-49.9, adult Z68.42 [facility] [id number] [place] [address] 03491- 7825 Aug, [facility] [address] [place] [id number] [place] [address] 12 Jul, 2017 History of swelling of feet Z87.39 [facility] [id number] [place] [address] 37798- 4568 Jul, [facility] [id number] [place] [address] 07491 -0619 Jul, Pain in left knee M25.562 ; Other chronic pain G89.29 and BMI 45.0-49.9, adult Z68.42 [facility] [id number] [place] [address] 50013- 4823 Jun, [facility] [id number] [place] [address] 04645- 2975 Jun, [facility] [id number] [place] [address] 33778- 1580 May, Primary insomnia F51.01 [place] [id number] [place] [address] 76804- 8678 Apr, [facility] [id number] [place] [address] 99291- 1844 Apr, [facility] [id number] [place] [address] 04555- 7427 Apr, Acute pain of left knee M25.562 ; Renal insufficiency N28.9 ; Fatigue, unspecified type R53.83 ; Postablative hypothyroidism E89.0 and BMI 40.0-44.9, adult Z68.41 [facility] [id number] [place] [address] 49121- 7473 Mar, Acute pain of left knee M25.562 [facility] [id number] [place] [address] 33960- 9064 Feb, Renal insufficiency N28.9 [facility] [id number] [place] [address] 90193- 5388 Feb, [facility] [address] [place] [address] 64725- 5753 Feb, [place] [id number] [place] [address] 60713- 5250 Feb, [facility] [id number] [place] [address] 77071- 7799 Feb, Renal insufficiency N28.9 ; ADHD, predominantly inattentive type F90.0 ; Postablative hypothyroidism E89.0 ; Primary insomnia F51.01 ; Difficulty concentrating R41.840 ; History of swelling of feet Z87.39 ; Chronic pain syndrome G89.4 and Moderate episode of recurrent major depressive disorder F33.1 [facility] [id number] [place] [address] 87873- 6553 Feb, [place] [id number] [place] [address] 34006- 4978 Feb, [place] [id number] [place] [address] 36806- 3388 Jan, ADHD, predominantly inattentive type F90.0 [place] [id number] [place] [address] 66804- 2660 Jan, Renal insufficiency N28.9 ; Postablative hypothyroidism E89.0 and History of swelling of feet Z87.39 [place] [id number] [place] [address] 77900- 6832 Jan, Chronic pain syndrome G89.4 [place] [id number] [place] [address] 85192- 8450 Jan, [place] [id number] [place] [address] 35529- 2881 Jan, Renal insufficiency N28.9 ; Primary insomnia F51.01 ; Difficulty concentrating R41.840 ; Postablative hypothyroidism E89.0 ; History of swelling of feet Z87.39 ; Chronic pain syndrome G89.4 and Moderate episode of recurrent major depressive disorder F33.1 [place] [id number] [place] [address] 38185- 5899 Jan, [facility] [id number] [address] Jan, Candidal dermatitis B37.2 [facility] [address] [place] [address] 69075- 9134 Dec, [facility] [id number] [address] Dec, [facility] [id number] [place] [address] 59104- 3340 Dec, [facility] [id number] [place] [address] 14471- 0994 Dec, Stool color black K92.1 [facility] [id number] [place] [address] 02069- 4218 Dec, Diarrhea of presumed infectious origin A09 [facility] [id number] [place] [address] 49047- 3962 Dec, Right lower quadrant abdominal pain R10.31 and Stool color black K92.1 [facility] [id number] [address] Nov, [facility] [address] [place] [address] 00268- 7577 Nov, Visit for TB skin test Z11.1 and Pre-employment examination Z02.1 [facility] [address] [address] 8489 Nov, [facility] [id number], [place] [address] October, [facility] [id number], [place] [address] October, [facility] [id number], [place] [address] Aug, [facility] [id number], [place] [address] Aug, Other fatigue R53.83 ; BMI 45.0-49.9, adult Z68.42 ; Edema, unspecified type R60.9 ; Benign essential hypertension I10 and Lumbar degenerative disc disease M51.36 [facility] [id number] [place] [address] 08 Aug, 2016 Skin tag L91.8 [facility] [id number] [place] [address] Aug, Abnormal laboratory test result R89.9 [facility] [id number] [place] [address] Jul, Insomnia, unspecified type G47.00 [facility] [id number] [place] [address] Jul, Benign essential hypertension I10 ; BMI 45.0-49.9, adult Z68.42 ; Lumbar degenerative disc disease M51.36 ; Edema, unspecified type R60.9 ; Other fatigue R53.83 and Hypothyroidism, unspecified type E03.9 [facility] [id number] [place] [address] Jul, [facility] [id number] [place] [address] Jul, Benign essential hypertension I10 ; BMI 45.0-49.9, adult Z68.42 ; Lumbar degenerative disc disease M51.36 ; Edema, unspecified type R60.9 ; Other fatigue R53.83 and Hypothyroidism, unspecified type E03.9 [facility] [id number], [place] [address] Jun, [facility] [id number] [place] [address] Jun, [facility] [id number] [place] [address] Jun, Benign essential hypertension I10 ; Hypothyroidism, unspecified type E03.9 ; Other fatigue R53.83 ; Midline low back pain without sciatica, unspecified chronicity M54.5 and BMI 45.0-49.9, adult Z68.42 [place] [id number] [place] [address] [id number] Jun, Postablative hypothyroidism E89.0 ; Rhinopharyngitis J00 and Encounter for immunization Z23 [place] [id number] [place] [address] [id number] Jun, [address] [id number] May, [facility] [id number] [place] [address] May, [place] [id number] [place] [address] [id number] May, [place] [id number] [place] [address] [id number] Apr, Hypothyroidism, unspecified type E03.9 [place] [address] [place] [address] [id number] Apr, Hypothyroidism, unspecified type E03.9 [address] [id number] Apr, [place] [address] [place] [address] [id number] Mar, Hypothyroidism, unspecified type E03.9 ; Moderate single current episode of major depressive disorder F32.1 ; Other hyperlipidemia E78.4 and Elevated liver function tests R79.89 [facility] [address] [id number] [id number] Feb, [place] [address] [place] [address] [id number] Dec, Moderate single current episode of major depressive disorder F32.[address] [id number] [id number] Nov, [facility] [id number] [id number] Nov, [facility] [id number] [address] Nov, Hypothyroidism, unspecified type E03.9 ; Other hyperlipidemia E78.4 and Elevated liver function tests R79.89 [facility] [id number] [place] [address] [id number] Nov, 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 ; Hypothyroidism, unspecified type E03.9 ; Benign essential hypertension I10 and Uncomplicated asthma, unspecified asthma severity J45.909 [place] [address] [place] [address] [id number] Nov, 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 ; Hypothyroidism, unspecified type E03.9 ; Benign essential hypertension I10 and Uncomplicated asthma, unspecified asthma severity J45.909 [facility] [address]00565100[place] [address] October, [place] [address] [place] [address] [id number] October, [address] [id number] October, Abnormal laboratory test result R89.9 [facility] [address] [id number] [id number] October, Status post bilateral oophorectomy Z90.722 [place] [address] [place] [address] [id number] Sep, [place] [id number] Aug, [place] [address] [place] [address] [id number] Aug, Complex ovarian cyst N83.20 [place] [address] [place] [address] [id number] Aug, Other acute sinusitis, recurrence not specified J01.80 [place] [address] [place] [address] [id number] Aug, [place] [address] [address] 2547 Jun, [place] [address] [place] [address] [id number] Jun, [address] [id number] May, Allergic rhinitis, unspecified allergic rhinitis type J30.9 [place] [id number] [place] [address] [phone]- 5829 May, [place] [address] [place] [address] [id number] Mar, [address] [id number] Mar, [place] [address] [place] [address] [id number] Jan, Hypothyroidism 244.9 and Cyst in hand 727.43 [place] [address] [place] [address] [id number] Jan, [place] [address] [place] [address] [id number] Dec, [place] [address] [place] [address] [id number] Dec, Acute sinusitis 461.9 and Cough 786.2 [place] [address] [place] [address] [id number] Dec, Insect bite 919.4 [place] [address] [id number] [id number] Nov, [facility] [address] [place] [id number] [place] [address] [phone] Nov, [facility] [address] [id number] [phone] Sep, Obesity, morbid 278.01 ; Sleep apnea, obstructive 327.23 and Fatigue due to sleep pattern disturbance 780.79 [facility] [id number] [place] [address] 839326 Sep, [facility] [id number] [place] [address] 10451- 3475 Sep, [place] [address] [place] [address] [id number] Aug, [facility] [id number] [place] [address] 12499- 6194 Aug, [place] [address] [place] [address] [id number] Jul, [facility] [id number] [place] [address] 99191- 2176 Jul, [facility] [id number] [place] [address] 03769- 5936 Jul, [facility] [address] [place] [id number] [place] [address] [id number] Jul, [address] [place] [address] [id number] Jun, [facility] [id number] [place] [address] 95179- 2546 Jun, [facility] [address] [place] [address] [id number] May, [facility] [id number] [place] [address] 103465- 1513 May, [facility] [address] 4356 Mar, [facility] [address] [address]- 3399 Mar, [facility] [address] 0776 Mar, [address]65100[place] [id number] Mar, [facility] [address] [place] [address] 708757- 9658 Mar, [facility] [address] 5753 Mar, [facility] [address] [address]- 0217 Mar, [address]100[place] [id number] Mar, [facility] [address] [address]- 8417 Mar, [address]100[place] [id number] Mar, [facility] [id number] [address]- 5516 Mar, IMMUNIZATIONS No Known Immunizations SOCIAL HISTORY Never Assessed REASON FOR VISIT Requests return call PLAN OF CARE VITAL SIGNS MEDICATIONS Unknown Medications RESULTS No Results PROCEDURES No Known procedures INSTRUCTIONS MEDICATIONS ADMINISTERED No Known Medications MEDICAL (GENERAL) HISTORY Type Description Date Medical History Insomnia Medical History Lump or mass in breast Medical History anxiety Medical History obesity Medical History Hypothyroidism Medical History hypertension Medical History asthma Medical History hernia Medical History depression Medical History [facility] Medical History Moderate [...] History [facility]- Diarrhea/abdominal pain 11/2016 Hospitalization History [facility] ER for heart beating funny 03/2018
--- OUTSIDE RECORDS SUMMARY | 2018-06-27 18:35 | XMS REPORT ---
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 Name Role Phone ECTOR GR Unavailable PROBLEMS Type Condition ICD9-CM Code [id number] Code Onset Dates Condition Status SNOMED Code Problem Primary insomnia F51.01 Active 3434369 Problem Renal insufficiency N28.9 Active 293253951 Problem Moderate episode of recurrent major depressive disorder F33.1 Active 17997668 Problem Other chronic pain G89.29 Active 85571262 Problem Acquired hypothyroidism E03.9 Active 602439109 Problem Chronic pain syndrome G89.4 Active 607089835 Problem Difficulty concentrating R41.840 Active 48606860 Problem Fatigue, unspecified type R53.83 Active 28401250 Problem ADHD, predominantly inattentive type F90.0 Active 42773048 Problem Benign essential hypertension I10 Active 4605362 Problem Allergic rhinitis, unspecified allergic rhinitis type J30.9 Active 40018762 Problem Positive urine drug screen R82.5 Active 027951036 Problem Other hyperlipidemia E78.4 Active 85005994 Problem Postablative hypothyroidism E89.0 Active 207181225 Problem Uncomplicated asthma, unspecified asthma severity J45.909 Active 068322276 Problem Major depressive disorder, single episode, unspecified F32.9 Active 34031587 Problem Anxiety F41.9 Active 98563830 Problem Lumbar degenerative disc disease M51.36 Active 10007074 ALLERGIES No Information ENCOUNTERS Encounter Location Date Diagnosis [facility] [place] [address] [facility] [address] [id number] [address] Dec, [facility] [place] [address] [id number] [address] Nov, Edema, unspecified type R60.9 [facility], [place] [address] [id number], [place] [address] Nov, Postablative hypothyroidism E89.0 [facility], [place] [address] [place] [address]111- 8678 Nov, [facility] [place] [id number] [place] [address] 16241- 3495 Nov, Generalized abdominal pain R10.84 ; History of abdominal hernia Z87.19 ; Pain of left calf M79.662 and BMI 45.0-49.9, adult Z68.42 [facility], [place] [id number] [place] [address] 95032- 3620 Sep, [facility] [place] [id number] [place] [address] 29999- 5244 Sep, [facility] [place] [id number] [place] [address] 45536- 9665 Sep, Postablative hypothyroidism E89.0 ; Pain in left knee M25.562 ; Edema, unspecified type R60.9 ; Multiple joint pain M25.50 and BMI 45.0-49.9, adult Z68.42 [facility] [place] [address] [place] [address] 41675- 1838 Aug, [facility] [address] [place] [id number] [place] [address] Jul, History of swelling of feet Z87.39 [facility], [place] [id number] [place] [address] 96686- 4595 Jul, [facility] [address] [place] [address]70 [address]0741 Jul, Pain in left knee M25.562 ; Other chronic pain G89.29 and BMI 45.0-49.9, adult Z68.42 [facility] [place] [address] [place] [address] 06610- 3571 Jun, [facility], [place] [id number] [place] [address] 82805- 3038 Jun, [place] [address] [place] [address] 33305- 7388 May, Primary insomnia F51.01 [place] [id number] [place] [address]305- 1903 Apr, [place] [id number] [place] [address] 94778- 3623 Apr, [place] [address] [address] Apr, Acute pain of left knee M25.562 ; Renal insufficiency N28.9 ; Fatigue, unspecified type R53.83 ; Postablative hypothyroidism E89.0 and BMI 40.0-44.9, adult Z68.41 [place] [id number] [place] [address] 11124- 4283 Mar, Acute pain of left knee M25.562 [place] [id number] [place] [address] 83077- 6130 28 Feb, 2017 Renal insufficiency N28.9 [place] [id number] [place] [address] 82930- 7292 Feb, [place] [id number] [place] [address] 06349- 8639 Feb, [place] [id number] [place] [address] 94479- 8879 Feb, [place] [id number] [place] [address] 67340- 0132 20 Feb, 2017 Renal insufficiency N28.9 ; ADHD, predominantly inattentive type F90.0 ; Postablative hypothyroidism E89.0 ; Primary insomnia F51.01 ; Difficulty concentrating R41.840 ; History of swelling of feet Z87.39 ; Chronic pain syndrome G89.4 and Moderate episode of recurrent major depressive disorder F33.1 [place] [id number] [place] [address] 74043- 6635 11 Feb, 2017 [place] [address] [address] Feb, [facility] [place] [id number] [place] [address] 05488- 9663 Jan, ADHD, predominantly inattentive type F90.0 [facility] [place] [id number] [place] [address] 24257- 4031 Jan, Renal insufficiency N28.9 ; Postablative hypothyroidism E89.0 and History of swelling of feet Z87.39 [facility] [place] [id number] [place] [address] 79609- 8145 Jan, Chronic pain syndrome G89.4 [place] [id number] [place] [address] 19092- 4814 Jan, [facility] [place] [id number] [place] [address] 17735- 6495 Jan, Renal insufficiency N28.9 ; Primary insomnia F51.01 ; Difficulty concentrating R41.840 ; Postablative hypothyroidism E89.0 ; History of swelling of feet Z87.39 ; Chronic pain syndrome G89.4 and Moderate episode of recurrent major depressive disorder F33.1 [place] [address] [place] [address] 60469- 0211 Jan, [facility] [address] [place] [address] 92619 -7223 Jan, Candidal dermatitis B37.2 [facility], [place] [id number] [place] [address] 94016- 6431 Dec, [facility] [id number] [place] [address] Dec, [facility] [place] [id number] [place] [address] 05369- 3144 Dec, [facility] [place] [id number] [place] [address] 73785- 8161 Dec, Stool color black K92.1 [facility], [place] [address], [place] [address] 05 Dec, 2016 Diarrhea of presumed infectious origin A09 [place] [id number] [place] [address] 92645- 1166 03 Dec, 2016 Right lower quadrant abdominal pain R10.31 and Stool color black K92.1 [facility] [address] [place] [address] Nov, [place] [id number] [place] [address] 64142- 3488 14 Nov, 2016 Visit for TB skin test Z11.1 and Pre-employment examination Z02.1 [place] [id number] [place] [address] 08822- 3040 03 Nov, 2016 [facility] [address] [address] October, [facility] [address] [address] October, [facility] [address] [address] Aug, [facility] [id number] [place] [address] Aug, Other fatigue R53.83 ; BMI 45.0-49.9, adult Z68.42 ; Edema, unspecified type R60.9 ; Benign essential hypertension I10 and Lumbar degenerative disc disease M51.36 [facility] [address] [place] [id number] [place] [address] Aug, Skin tag L91.8 [facility] [id number] [place] [address] 06 Aug, 2016 Abnormal laboratory test result R89.9 [facility] [address] [place] [address] Jul, Insomnia, unspecified type G47.00 [facility] [id number], [place] [address] 20 Jul, 2016 Benign essential hypertension I10 ; BMI 45.0-49.9, adult Z68.42 ; Lumbar degenerative disc disease M51.36 ; Edema, unspecified type R60.9 ; Other fatigue R53.83 and Hypothyroidism, unspecified type E03.9 [facility] [id number] [place] [address] Jul, [facility] [id number] [place] [address] Jul, Benign essential hypertension I10 ; BMI 45.0-49.9, adult Z68.42 ; Lumbar degenerative disc disease M51.36 ; Edema, unspecified type R60.9 ; Other fatigue R53.83 and Hypothyroidism, unspecified type E03.9 [facility] [address] [id number], [place] [address] Jun, [facility] [id number] [place] [address] Jun, [facility] [id number] [place] [address] Jun, Benign essential hypertension I10 ; Hypothyroidism, unspecified type E03.9 ; Other fatigue R53.83 ; Midline low back pain without sciatica, unspecified chronicity M54.5 and BMI 45.0-49.9, adult Z68.42 [place] [id number] [place] [address] [id number] Jun, Postablative hypothyroidism E89.0 ; Rhinopharyngitis J00 and Encounter for immunization Z23 [place] [id number] [place] [address] [id number] Jun, [place] [id number] [place] [address] [id number] May, [facility] [address] [id number] [address] May, [facility] [id number], [place] [phone] May, [facility] [id number], [place] [id number] Apr, Hypothyroidism, unspecified type E03.9 [facility] [address] [id number][place] [id number] Apr, Hypothyroidism, unspecified type E03.9 [facility] [id number][place] [id number] Apr, [facility] [id number], [place] [id number] Mar, Hypothyroidism, unspecified type E03.9 ; Moderate single current episode of major depressive disorder F32.1 ; Other hyperlipidemia E78.4 and Elevated liver function tests R79.[address] [facility] [address] [facility] [id number] [id number] Feb, [facility] [id number], [place] [id number] Dec, Moderate single current episode of major depressive disorder F32.1 [facility] [address] [id number] [phone] Nov, [facility] [address] [id number], [place] [id number] Nov, 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 ; Hypothyroidism, unspecified type E03.9 ; Benign essential hypertension I10 and Uncomplicated asthma, unspecified asthma severity J45.909 [place] [id number] [place] [address] [id number] October, [place] [id number] [place] [address] [id number] October, [address] [id number] October, Abnormal laboratory test result R89.9 [place] [id number] [place] [address] [id number] October, Status post bilateral oophorectomy Z90.722 [place] [id number] [place] [address] [phone] Sep, [place] [id number] [place] [address] [id number] Aug, [place] [id number] [place] [address] [id number] Aug, Complex ovarian cyst N83.20 [place] [id number] [place] [address] [id number] Aug, Other acute sinusitis, recurrence not specified J01.80 [place] [id number] [place] [address] [id number] Aug, [facility] [place] [id number] [place] [address] [phone]- 4022 Jun, [place] [id number] [place] [address] [id number] Jun, [address]00565[place] [id number] May, Allergic rhinitis, unspecified allergic rhinitis type J30.9 [place] [id number] [place] [address] [id number]- 1725 May, [place] [id number] [place] [address] [id number] Mar, [address] [id number] Mar, [address] [id number] Jan, Hypothyroidism 244.9 and Cyst in hand 727.43 [place] [id number] [place] [address] [id number] Jan, [place] [id number] [place] [address] [id number] Dec, [place] [id number] [place] [address] [id number] Dec, Acute sinusitis 461.9 and Cough 786.2 [place] [id number] [place] [address] [id number] Dec, Insect bite 919.4 [place] [address]005[address] [id number] Nov, [place] [id number] [place] [address] [id number] Nov, [place] [id number] [place] [address] [id number] Sep, Obesity, morbid 278.01 ; Sleep apnea, obstructive 327.23 and Fatigue due to sleep pattern disturbance 780.79 [address] [address]- 7026 Sep, [place] [address]00565100[place], [place] [address]- 6[address] Sep, [facility] [id number], [place] [id number] Aug, [facility] [address] [facility] [id number], [place] [address]- 3716 Aug, [facility] [id number] [place] [address] [id number] Jul, [facility] [address] [facility] [address] [id number], [place] [address]- 2008 Jul, [facility] [id number] [place] [address] 39264- 0476 Jul, [facility] [id number] [place] [address] [id number] Jul, [facility] [id number] [place] [address] [id number] Jun, [facility] [id number], [place] [address]- 0432 Jun, [facility] [id number] [place] [address] [id number] May, [facility] [id number], [place] [address]- 3460 May, [facility] [address] [id number], [place] [address]- 8754 Mar, [facility] [address] [facility] [id number], [place] [address]- 3452 Mar, [facility] [address] [id number], [place] [address]- 8933 Mar, [facility] [address] [id number] [id number] Mar, [facility] [id number], [place] [address]- 7756 Mar, [facility] [place] [address] [id number], [place] [address]- 0924 Mar, [facility] [place] [address] [facility] [id number], [place] [address]- 1196 Mar, [facility] [address] [id number] [id number] Mar, [facility] [place] [address] [facility] [address] [id number], [place] [address] 2546 Mar, [facility] [address] [id number], [place] [id number] Mar, [facility] [place] [address] [id number], [place] [address]- 0770 Mar, IMMUNIZATIONS No Known Immunizations SOCIAL HISTORY Never Assessed REASON FOR VISIT Refill request PLAN OF CARE VITAL SIGNS MEDICATIONS Medication Instructions Dosage Frequency Start Date End Date Duration Status Lasix 40 mg Orally Once a day 1 1/2 tablet 24h Nov, 30 day(s) Active RESULTS No Results PROCEDURES No Known [...] Abdominal Hernia Repair 2017 Hospitalization History Vomiting 2012 Hospitalization History Asthma exac Hospitalization History Mononucleosis Hospitalization History Pneumonia Hospitalization History Surgery(s) only Hospitalization History chest pain 11/2016 Hospitalization History [facility]- Diarrhea/abdominal pain 11/2016
--- OUTSIDE RECORDS SUMMARY | 2018-06-27 18:35 | XMS REPORT ---
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 Name Role Phone ECTOR GR Unavailable PROBLEMS Type Condition ICD9-CM Code [id number] Code Onset Dates Condition Status SNOMED Code Problem Primary insomnia F51.01 Active 7464862 Problem Renal insufficiency N28.9 Active 618330686 Problem Moderate episode of recurrent major depressive disorder F33.1 Active 23394724 Problem Other chronic pain G89.29 Active 48302664 Problem Acquired hypothyroidism E03.9 Active 200711006 Problem Chronic pain syndrome G89.4 Active 609764601 Problem Difficulty concentrating R41.840 Active 48019957 Problem Fatigue, unspecified type R53.83 Active 13368285 Problem ADHD, predominantly inattentive type F90.0 Active 58377302 Problem Benign essential hypertension I10 Active 9041016 Problem Allergic rhinitis, unspecified allergic rhinitis type J30.9 Active 76877644 Problem Positive urine drug screen R82.5 Active 483124706 Problem Other hyperlipidemia E78.4 Active 04691918 Problem Postablative hypothyroidism E89.0 Active 318215931 Problem Uncomplicated asthma, unspecified asthma severity J45.909 Active 896402557 Problem Major depressive disorder, single episode, unspecified F32.9 Active 27307182 Problem Anxiety F41.9 Active 10557013 Problem Lumbar degenerative disc disease M51.36 Active 12582073 ALLERGIES No Information ENCOUNTERS Encounter Location Date Diagnosis [facility] [address] [facility] [id number] [address] Dec, [facility] [address] [id number], [place] [address] Nov, Edema, unspecified type R60.9 [facility] [address] [id number] [address] Nov, Postablative hypothyroidism E89.0 [facility] [address] [place] [address] 12314- 8296 Nov, [facility] [id number] [place] [address] 81904- 7456 Nov, Generalized abdominal pain R10.84 ; History of abdominal hernia Z87.19 ; Pain of left calf M79.662 and BMI 45.0-49.9, adult Z68.42 [facility] [id number] [place] [address] 45163- 3686 Sep, [facility] [id number] [place] [address] 29905- 2620 Sep, [facility] [id number] [place] [address] 35089- 1119 Sep, Postablative hypothyroidism E89.0 ; Pain in left knee M25.562 ; Edema, unspecified type R60.9 ; Multiple joint pain M25.50 and BMI 45.0-49.9, adult Z68.42 [facility] [address] [place] [address] 59995- 7372 Aug, [facility] [address] [place] [id number] [place] [address] Jul, History of swelling of feet Z87.39 [facility] [id number] [place] [address] 91846- 9859 Jul, [facility] [address] [place] [address]8437 -9627 Jul, Pain in left knee M25.562 ; Other chronic pain G89.29 and BMI 45.0-49.9, adult Z68.42 [facility] [address] [place] [address] 45623- 4799 Jun, [facility] [id number] [place] [address] 73707- 3940 Jun, [place] [address] [place] [address] 52778- 1247 May, Primary insomnia F51.01 [place] [id number] [place] [address] 90148- 4547 Apr, [place] [id number] [place] [address] 75343- 5283 Apr, [place] [address] [address] Apr, Acute pain of left knee M25.562 ; Renal insufficiency N28.9 ; Fatigue, unspecified type R53.83 ; Postablative hypothyroidism E89.0 and BMI 40.0-44.9, adult Z68.41 [place] [id number] [place] [address] 22862- 0961 Mar, Acute pain of left knee M25.562 [place] [id number] [place] [address] 37032- 8975 28 Feb, 2017 Renal insufficiency N28.9 [place] [id number] [place] [address] 45805- 0209 Feb, [place] [id number] [place] [address] 71222- 2643 Feb, [place] [id number] [place] [address] 60049- 3317 Feb, [place] [id number] [place] [address] 25919- 7240 20 Feb, 2017 Renal insufficiency N28.9 ; ADHD, predominantly inattentive type F90.0 ; Postablative hypothyroidism E89.0 ; Primary insomnia F51.01 ; Difficulty concentrating R41.840 ; History of swelling of feet Z87.39 ; Chronic pain syndrome G89.4 and Moderate episode of recurrent major depressive disorder F33.1 [place] [id number] [place] [address] 63523- 0914 11 Feb, 2017 [place] [address] [address] Feb, [facility] [id number] [place] [address] 91405- 4627 Jan, ADHD, predominantly inattentive type F90.0 [facility] [id number] [place] [address] 61559- 7990 Jan, Renal insufficiency N28.9 ; Postablative hypothyroidism E89.0 and History of swelling of feet Z87.39 [facility] [id number] [place] [address] 24987- 4306 Jan, Chronic pain syndrome G89.4 [place] [id number] [place] [address] 66584- 1148 Jan, [facility] [id number] [place] [address] 10439- 1724 Jan, Renal insufficiency N28.9 ; Primary insomnia F51.01 ; Difficulty concentrating R41.840 ; Postablative hypothyroidism E89.0 ; History of swelling of feet Z87.39 ; Chronic pain syndrome G89.4 and Moderate episode of recurrent major depressive disorder F33.1 [place] [address] [place] [address] 14095- 0148 Jan, [facility] [address] [place] [address]1843 Jan, Candidal dermatitis B37.2 [facility] [id number] [place] [address] 56822- 8927 Dec, [facility] [id number] [place] [address] Dec, [facility] [id number] [place] [address] 36647- 8364 Dec, [facility] [id number] [place] [address] 52493- 9868 Dec, Stool color black K92.1 [facility] [address], [place] [address] 05 Dec, 2016 Diarrhea of presumed infectious origin A09 [place] [id number] [place] [address] 08899- 3611 03 Dec, 2016 Right lower quadrant abdominal pain R10.31 and Stool color black K92.1 [facility] [address] [place] [address] Nov, [place] [id number] [place] [address] 10243- 4675 14 Nov, 2016 Visit for TB skin test Z11.1 and Pre-employment examination Z02.1 [place] [id number] [place] [address] 17412- 4326 03 Nov, 2016 [facility] [address] [address] October, [facility] [address] [address] October, [facility] [address] [address] Aug, [facility] [id number] [place] [address] Aug, Other fatigue R53.83 ; BMI 45.0-49.9, adult Z68.42 ; Edema, unspecified type R60.9 ; Benign essential hypertension I10 and Lumbar degenerative disc disease M51.36 [facility] [address] [place] [id number] [place] [address] Aug, Skin tag L91.8 [facility] [id number] [place] [address] 06 Aug, 2016 Abnormal laboratory test result R89.9 [facility] [address] [place] [address] Jul, Insomnia, unspecified type G47.00 [facility] [id number], [place] [address] 20 Jul, 2016 Benign essential hypertension I10 ; BMI 45.0-49.9, adult Z68.42 ; Lumbar degenerative disc disease M51.36 ; Edema, unspecified type R60.9 ; Other fatigue R53.83 and Hypothyroidism, unspecified type E03.9 [facility] [id number] [place] [address] Jul, [facility] [id number] [place] [address] Jul, Benign essential hypertension I10 ; BMI 45.0-49.9, adult Z68.42 ; Lumbar degenerative disc disease M51.36 ; Edema, unspecified type R60.9 ; Other fatigue R53.83 and Hypothyroidism, unspecified type E03.9 [facility] [address] [id number], [place] [address] Jun, [facility] [id number] [place] [address] Jun, [facility] [id number] [place] [address] Jun, Benign essential hypertension I10 ; Hypothyroidism, unspecified type E03.9 ; Other fatigue R53.83 ; Midline low back pain without sciatica, unspecified chronicity M54.5 and BMI 45.0-49.9, adult Z68.42 [place] [id number] [place] [address] [id number] Jun, Postablative hypothyroidism E89.0 ; Rhinopharyngitis J00 and Encounter for immunization Z23 [place] [id number] [place] [address] [id number] Jun, [place] [id number] [place] [address] [id number] May, [facility] [address] [id number], [place] [address] May, [facility] [id number] [id number] May, [facility] [id number] [id number] Apr, Hypothyroidism, unspecified type E03.9 [facility] [address] [id number][place] [id number] Apr, Hypothyroidism, unspecified type E03.9 [facility] [id number][place] [id number] Apr, [facility] [id number][place] [id number] Mar, Hypothyroidism, unspecified type E03.9 ; Moderate single current episode of major depressive disorder F32.1 ; Other hyperlipidemia E78.4 and Elevated liver function tests R79.89 [facility] [address] [facility] [id number] [place] [id number] Feb, [facility] [id number], [place] [id number] Dec, Moderate single current episode of major depressive disorder F32.1 [facility] [address] [id number] [id number] Nov, [facility] [address] [id number][place] [id number] Nov, [facility] [address] [id number] [id number] Nov, Hypothyroidism, unspecified type E03.9 ; Other hyperlipidemia E78.4 and Elevated liver function tests R79.89 [facility] [id number][place] [id number] Nov, 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 ; Hypothyroidism, unspecified type E03.9 ; Benign essential hypertension I10 and Uncomplicated asthma, unspecified asthma severity J45.909 [address] [place] [address] [id number] Nov, 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 ; Hypothyroidism, unspecified type E03.9 ; Benign essential hypertension I10 and Uncomplicated asthma, unspecified asthma severity J45.909 [address] [place] [address] [id number] October, [place] [address] [place] [address] [id number] October, [address] [id number] October, Abnormal laboratory test result R89.9 [address] [id number] [place] [address] [id number] October, Status post bilateral oophorectomy Z90.722 [address] [place] [address] [id number] Sep, [place] [address] [place] [address] [id number] Aug, [place] [address] [place] [address] [id number] Aug, Complex ovarian cyst N83.20 [address] [place] [place] [address] [id number] Aug, Other acute sinusitis, recurrence not specified J01.80 [address] [place] [address] [id number] Aug, [facility] [id number] [place] [address] 84990841- 5641 Jun, [address] [place] [id number] [place] [address] [id number] Jun, [address]65[place] [id number] May, Allergic rhinitis, unspecified allergic rhinitis type J30.9 [place] [address] [place] [address] 74665153- 6939 May, [place] [id number] [place] [address] [id number] Mar, [address] [id number] Mar, [address] [id number] Jan, Hypothyroidism 244.9 and Cyst in hand 727.43 [address] [place] [address] [id number] Jan, [place] [id number] [place] [address] [id number] Dec, [place] [address] [place] [address] [id number] Dec, Acute sinusitis 461.9 and Cough 786.2 [address] [place] [address] [id number] Dec, Insect bite 919.4 [place] [address] [id number] Nov, [address] [id number] [place] [address] [id number] Nov, [place] [address] [place] [address] [id number] Sep, Obesity, morbid 278.01 ; Sleep apnea, obstructive 327.23 and Fatigue due to sleep pattern disturbance 780.79 [address] [address]- 9569 Sep, [place] [address], [place] [address] Sep, [facility] [id number], [place] [id number] Aug, [facility] [address] [facility] [id number], [place] [address]- [address] Aug, [facility] [id number] [place] [address] [id number] Jul, [facility] [address] [facility] [id number], [place] [address]- 5027 Jul, [facility] [id number] [place] [address] 48087- 1646 Jul, [facility] [id number] [place] [address] [id number] Jul, [facility] [id number] [place] [address] [id number] Jun, [facility] [id number], [place] [address]- 7375 Jun, [facility] [id number] [place] [address] [id number] May, [facility] [id number], [place] [address]- 0883 May, [facility] [address] [facility] [id number], [place] [address]- 2221 Mar, [facility] [address] [facility] [id number], [place] [address]- 2424 Mar, [facility] [address] [facility] [id number], [place] [address]- 1394 Mar, [facility] [address] [id number] [id number] Mar, [facility] [address] [id number], [place] [address]- 2719 Mar, [facility] [address] [facility] [id number], [place] [address]- 8326 Mar, [facility] [address] [facility] [id number], [place] [address]- 2635 Mar, [facility] [address] [id number] [id number] Mar, [facility] [address] [facility] [id number], [place] [address]- 3583 Mar, [facility] [id number] [id number] Mar, [facility] [address] [facility] [id number]28[place]- 2433 Mar, IMMUNIZATIONS No Known Immunizations SOCIAL HISTORY Never Assessed REASON FOR VISIT FYI PLAN OF CARE VITAL SIGNS MEDICATIONS Unknown [...]
--- OUTSIDE RECORDS SUMMARY | 2018-06-27 18:35 | XMS REPORT ---
Author Author SIMÓN ECTOR [facility] Address [address] [place] [address] Care Team Providers Care Transit Clerk Name Role Phone ECTOR GR Unavailable PROBLEMS Type Condition ICD9-CM Code QKX00-JP Code Onset Dates Condition Status SNOMED Code Problem Primary insomnia F51.01 Active 0797013 Problem Renal insufficiency N28.9 Active 817096533 Problem Moderate episode of recurrent major depressive disorder F33.1 Active 70221313 Problem Other chronic pain G89.29 Active 11954353 Problem Acquired hypothyroidism E03.9 Active 088094466 Problem Chronic pain syndrome G89.4 Active 271513832 Problem Difficulty concentrating R41.840 Active 94249563 Problem Fatigue, unspecified type R53.83 Active 59116942 Problem ADHD, predominantly inattentive type F90.0 Active 90621574 Problem Benign essential hypertension I10 Active 2522631 Problem Allergic rhinitis, unspecified allergic rhinitis type J30.9 Active 23394542 Problem Positive urine drug screen R82.5 Active 570042537 Problem Other hyperlipidemia E78.4 Active 15419917 Problem Postablative hypothyroidism E89.0 Active 495303258 Problem Uncomplicated asthma, unspecified asthma severity J45.909 Active 648277173 Problem Major depressive disorder, single episode, unspecified F32.9 Active 84684260 Problem Anxiety F41.9 Active 27549923 Problem Lumbar degenerative disc disease M51.36 Active 96312445 ALLERGIES No Information ENCOUNTERS Encounter Location Date Diagnosis [facility], [place] [address] [facility] [id number], [place] [address] Dec, [facility], [place] [address] [id number], [place] [address] Nov, Edema, unspecified type R60.9 [facility], [place] [address] [id number], [place] [address] Nov, Postablative hypothyroidism E89.0 [facility], [place] [address] [place] [address] 75537- 3702 Nov, [facility], [place] [id number] [place] [address] 37787- 9664 Nov, Generalized abdominal pain R10.84 ; History of abdominal hernia Z87.19 ; Pain of left calf M79.662 and BMI 45.0-49.9, adult Z68.42 [facility], [place] [id number] [place] [address] 17314- 9069 Sep, [facility], [place] [id number] [place] [address] 04884- 0607 Sep, [facility], [place] [id number] [place] [address] 04337- 2594 Sep, Postablative hypothyroidism E89.0 ; Pain in left knee M25.562 ; Edema, unspecified type R60.9 ; Multiple joint pain M25.50 and BMI 45.0-49.9, adult Z68.42 [facility], [place] [address] [place] [address] 86661- 3080 Aug, [facility] [address] [place] [id number] [place] [address] Jul, History of swelling of feet Z87.39 [facility], [place] [id number] [place] [address] 69855- 1738 Jul, [facility] [address] [place] [address] 02931 -5617 Jul, Pain in left knee M25.562 ; Other chronic pain G89.29 and BMI 45.0-49.9, adult Z68.42 [facility], [place] [address] [place] [address] 98633- 4373 Jun, [facility], [place] [id number] [place] [address] 67108- 2308 Jun, [place] [address] [place] [address] 86504- 6880 May, Primary insomnia F51.01 [place] [id number] [place] [address] 48748- 3702 Apr, [place] [id number] [place] [address] 47308- 9812 Apr, [place] [address] [address] Apr, Acute pain of left knee M25.562 ; Renal insufficiency N28.9 ; Fatigue, unspecified type R53.83 ; Postablative hypothyroidism E89.0 and BMI 40.0-44.9, adult Z68.41 [place] [id number] [place] [address] 42236- 0532 Mar, Acute pain of left knee M25.562 [place] [id number] [place] [address] 69000- 4495 28 Feb, 2017 Renal insufficiency N28.9 [place] [id number] [place] [address] 76881- 1804 Feb, [place] [id number] [place] [address] 99671- 2522 Feb, [place] [id number] [place] [address] 54455- 9708 Feb, [place] [id number] [place] [address] 87730- 5620 20 Feb, 2017 Renal insufficiency N28.9 ; ADHD, predominantly inattentive type F90.0 ; Postablative hypothyroidism E89.0 ; Primary insomnia F51.01 ; Difficulty concentrating R41.840 ; History of swelling of feet Z87.39 ; Chronic pain syndrome G89.4 and Moderate episode of recurrent major depressive disorder F33.1 [place] [id number] [place] [address] 96886- 0073 11 Feb, 2017 [place] [address], [place] [address] 12[address] Feb, [facility], [place] [id number] [place] [address] 00633- 4171 Jan, ADHD, predominantly inattentive type F90.0 [facility], [place] [id number] [place] [address] 31718- 6330 Jan, Renal insufficiency N28.9 ; Postablative hypothyroidism E89.0 and History of swelling of feet Z87.39 [facility], [place] [id number] [place] [address] 09289- 6319 Jan, Chronic pain syndrome G89.4 [place] [id number] [place] [address] 38197- 4685 Jan, [facility], [place] [id number] [place] [address] 07950- 6616 Jan, Renal insufficiency N28.9 ; Primary insomnia F51.01 ; Difficulty concentrating R41.840 ; Postablative hypothyroidism E89.0 ; History of swelling of feet Z87.39 ; Chronic pain syndrome G89.4 and Moderate episode of recurrent major depressive disorder F33.1 [place] [address] [place] [address] 66532- 2657 Jan, [facility] [address] [place] [address] 72552 -7479 Jan, Candidal dermatitis B37.2 [facility], [place] [id number] [place] [address] 35037- 6409 Dec, [facility] [id number] [place] [address] Dec, [facility], [place] [id number] [place] [address] 71186- 8167 Dec, [facility] [place] [id number] [place] [address] 75754- 8734 Dec, Stool color black K92.1 [facility], [place] [address], [place] [address] 05 Dec, 2016 Diarrhea of presumed infectious origin A09 [place] [id number] [place] [address] 09991- 8253 03 Dec, 2016 Right lower quadrant abdominal pain R10.31 and Stool color black K92.1 [facility] [address] [place] [address] Nov, [place] [id number] [place] [address] 61888- 1854 14 Nov, 2016 Visit for TB skin test Z11.1 and Pre-employment examination Z02.1 [place] [id number] [place] [address] 75736- 7482 03 Nov, 2016 [facility] [address] [address] October, [facility] [address] [address] October, [facility] [address] [address] Aug, [facility] [id number] [place] [address] Aug, Other fatigue R53.83 ; BMI 45.0-49.9, adult Z68.42 ; Edema, unspecified type R60.9 ; Benign essential hypertension I10 and Lumbar degenerative disc disease M51.36 [facility] [address] [place] [id number] [place] [address] Aug, Skin tag L91.8 [facility] [id number] [place] [address] 06 Aug, 2016 Abnormal laboratory test result R89.9 [facility] [address] [place] [address] Jul, Insomnia, unspecified type G47.00 [facility] [id number] [address] 20 Jul, 2016 Benign essential hypertension I10 ; BMI 45.0-49.9, adult Z68.42 ; Lumbar degenerative disc disease M51.36 ; Edema, unspecified type R60.9 ; Other fatigue R53.83 and Hypothyroidism, unspecified type E03.9 [facility] [id number] [place] [address] Jul, [facility] [id number] [place] [address] Jul, Benign essential hypertension I10 ; BMI 45.0-49.9, adult Z68.42 ; Lumbar degenerative disc disease M51.36 ; Edema, unspecified type R60.9 ; Other fatigue R53.83 and Hypothyroidism, unspecified type E03.9 [facility] [address] [id number] [place] [address] Jun, [facility] [id number] [place] [address] Jun, [facility] [id number] [place] [address] Jun, Benign essential hypertension I10 ; Hypothyroidism, unspecified type E03.9 ; Other fatigue R53.83 ; Midline low back pain without sciatica, unspecified chronicity M54.5 and BMI 45.0-49.9, adult Z68.42 [place] [id number] [place] [address] [id number] Jun, Postablative hypothyroidism E89.0 ; Rhinopharyngitis J00 and Encounter for immunization Z23 [place] [id number] [place] [address] [id number] Jun, [place] [id number] [place] [address] [id number] May, [facility] [address] [id number] [address] May, [facility] [id number] [place] [id number] May, [facility] [id number] [place] [id number] Apr, Hypothyroidism, unspecified type E03.9 [facility] [address] [id number] [place] [id number] Apr, Hypothyroidism, unspecified type E03.9 [facility] [id number] [place] [id number] Apr, [facility] [id number] [place] [id number] Mar, Hypothyroidism, unspecified type E03.9 ; Moderate single current episode of major depressive disorder F32.1 ; Other hyperlipidemia E78.4 and Elevated liver function tests R79.89 [facility] [address] [facility] [id number] [id number] Feb, [facility] [id number] [place] [id number] Dec, Moderate single current episode of major depressive disorder F32.1 [facility] [address] [id number] [place] [id number] Nov, [facility] [address] [id number] [place] [id number] Nov, [facility] [address] [id number] [place] [id number] Nov, Hypothyroidism, unspecified type E03.9 ; Other hyperlipidemia E78.4 and Elevated liver function tests R79.89 [facility] [id number] [place] [address] Nov, 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 ; Hypothyroidism, unspecified type E03.9 ; Benign essential hypertension I10 and Uncomplicated asthma, unspecified asthma severity J45.[address] [place] [address] [id number] Nov, 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 ; Hypothyroidism, unspecified type E03.9 ; Benign essential hypertension I10 and Uncomplicated asthma, unspecified asthma severity J45.909 [address] [place] [address] [id number] October, [address] [place] [place] [address] [id number] October, [address] [id number] October, Abnormal laboratory test result R89.9 [address] [place] [address] [id number] October, Status post bilateral oophorectomy Z90.722 [address] [place] [address] [id number] Sep, [address] [place] [place] [address] [id number] Aug, [place] [place] [address] [id number] Aug, Complex ovarian cyst N83.20 [address] [place] [address] [id number] Aug, Other acute sinusitis, recurrence not specified J01.80 [address] [place] [address] [id number] Aug, [facility], [place] [id number] [place] [address] 62765139- 5252 Jun, [address] [place] [address] [id number] Jun, [address]00565100[place] [id number] May, Allergic rhinitis, unspecified allergic rhinitis type J30.9 [place] [id number] [place] [address] 20177608- 0586 May, [id number] [place] [address] [id number] Mar, [address] [id number] Mar, [address] [id number] Jan, Hypothyroidism 244.9 and Cyst in hand 727.43 [address] [place] [place] [address] [id number] Jan, [place] [address] [place] [address] [id number] Dec, [place] [place] [address] [id number] Dec, Acute sinusitis 461.9 and Cough 786.2 [address] [place] [address] [id number] Dec, Insect bite 919.4 [place] [address]00565[address] [id number] Nov, [place] [address] [place] [address] [id number] Nov, [place] [address] [place] [address] [id number] Sep, Obesity, morbid 278.01 ; Sleep apnea, obstructive 327.23 and Fatigue due to sleep pattern disturbance 780.79 [address] [address]- 3859 Sep, [place] [address], [place] [address]- 1827 Sep, [facility] [id number] [place] [id number] Aug, [facility] [address] [facility] [id number], [place] [address]- 4476 Aug, [facility] [id number] [place] [address] [id number] Jul, [facility] [address] [facility] [id number], [place] [address]- 2460 Jul, [facility] [id number] [place] [address] 11137- 9816 Jul, [facility] [id number] [place] [address] [id number] Jul, [facility] [id number] [place] [address] [id number] Jun, [facility] [address] [id number], [place] [address]- 9102 Jun, [facility] [id number] [place] [address] [id number] May, [facility] [address] [id number], [place] [address]- 0631 May, [facility] [address] [facility] [id number], [place] [address]- 7038 Mar, [facility] [address] [facility] [id number], [place] [address]- 4893 Mar, [facility] [address] [facility] [id number], [place] [address]- 6374 Mar, [facility] [address] [id number] [place] [id number] Mar, [facility] [address] [id number], [place] [address]- 7819 Mar, [facility] [place] [address] [facility] [id number], [place] [address]- 4088 Mar, [facility] [place] [address] [facility] [id number], [place] [address]- 8838 Mar, [facility] [address] [id number] [place] [id number] Mar, [facility] [place] [address] [facility] [id number], [place] [address] 2546 Mar, [facility] [address] [facility] [id number] [place] [id number] Mar, [facility] [place] [address] [facility] [id number], [place] [address]- 5311 Mar, IMMUNIZATIONS No Known Immunizations SOCIAL HISTORY Never Assessed REASON FOR VISIT Med Refill PLAN OF CARE VITAL SIGNS MEDICATIONS Medication Instructions Dosage Frequency Start Date End Date Duration Status Levothyroxine Sodium 25 MCG Orally Once a day 1 tablet on an empty stomach in the morning 24h 30 Active RESULTS No Results PROCEDURES No [...]
--- OUTSIDE RECORDS SUMMARY | 2018-06-27 18:36 | XMS REPORT ---
Author Author JUVE Pearl Organization [facility] Address [address] [place] [address] Care Team Providers Care Hl7 Interface Developer Name Role Phone JUVE Pearl Unavailable PROBLEMS Type Condition ICD9-CM Code XMS81-UJ Code Onset Dates Condition Status SNOMED Code Problem Primary insomnia F51.01 Active 6422063 Problem Renal insufficiency N28.9 Active 699981880 Problem Moderate episode of recurrent major depressive disorder F33.1 Active 90182895 Problem Other chronic pain G89.29 Active 64080043 Problem Acquired hypothyroidism E03.9 Active 549004121 Problem Chronic pain syndrome G89.4 Active 680550816 Problem Difficulty concentrating R41.840 Active 76400584 Problem Fatigue, unspecified type R53.83 Active 93142716 Problem ADHD, predominantly inattentive type F90.0 Active 97195914 Problem Benign essential hypertension I10 Active 3244088 Problem Allergic rhinitis, unspecified allergic rhinitis type J30.9 Active 05360779 Problem Positive urine drug screen R82.5 Active 751041375 Problem Other hyperlipidemia E78.4 Active 51416425 Problem Postablative hypothyroidism E89.0 Active 571458841 Problem Uncomplicated asthma, unspecified asthma severity J45.909 Active 138326307 Problem Major depressive disorder, single episode, unspecified F32.9 Active 01203690 Problem Anxiety F41.9 Active 68270079 Problem Lumbar degenerative disc disease M51.36 Active 95570574 ALLERGIES No Information ENCOUNTERS Encounter Location Date Diagnosis [facility] [address] [facility] [id number] [address] Jan, [facility] [address] [address] Dec, [facility] [address] [id number] [address] Nov, Edema, unspecified type R60.9 [facility] [id number] [place] [address] 58174- 3882 Nov, Postablative hypothyroidism E89.0 [facility] [id number] [place] [address] 02565- 9272 Nov, [facility] [id number] [place] [address] 45168- 8731 Nov, Generalized abdominal pain R10.84 ; History of abdominal hernia Z87.19 ; Pain of left calf M79.662 and BMI 45.0-49.9, adult Z68.42 [facility] [id number] [place] [address] 98259- 9433 Sep, [facility] [facility] [id number] [place] [address] 26742- 7728 Sep, [facility] [id number] [place] [address] 67054- 3449 Sep, Postablative hypothyroidism E89.0 ; Pain in left knee M25.562 ; Edema, unspecified type R60.9 ; Multiple joint pain M25.50 and BMI 45.0-49.9, adult Z68.42 [place] [address] [place] [address] 31030- 5531 Aug, [facility] [address] [place] [id number] [place] [address] Jul, History of swelling of feet Z87.39 [facility] [address] [place] [address] 34159- 7528 Jul, [facility] [id number] [place] [address]993 -7874 Jul, Pain in left knee M25.562 ; Other chronic pain G89.29 and BMI 45.0-49.9, adult Z68.42 [place] [id number] [place] [address] 34607- 4978 Jun, [facility] [facility] [id number] [place] [address] 59480- 1582 Jun, [place] [address] [address] May, Primary insomnia F51.01 [place] [address] [address]20- 1708 Apr, [place] [address] [address]- 8938 Apr, [facility] [id number] [place] [address] 93848- 1503 Apr, Acute pain of left knee M25.562 ; Renal insufficiency N28.9 ; Fatigue, unspecified type R53.83 ; Postablative hypothyroidism E89.0 and BMI 40.0-44.9, adult Z68.41 [place] [address] [address]158- 9241 Mar, Acute pain of left knee M25.562 [facility] [id number] [place] [address] 34284- 5904 28 Feb, 2017 Renal insufficiency N28.9 [facility] [facility] [id number] [place] [address] 12055- 7916 Feb, [facility] [facility] [id number] [place] [address] 43286- 7961 Feb, [place] [id number] [place] [address] 30130- 3582 Feb, [place] [id number] [place] [address] 40259- 3479 Feb, Renal insufficiency N28.9 ; ADHD, predominantly inattentive type F90.0 ; Postablative hypothyroidism E89.0 ; Primary insomnia F51.01 ; Difficulty concentrating R41.840 ; History of swelling of feet Z87.39 ; Chronic pain syndrome G89.4 and Moderate episode of recurrent major depressive disorder F33.1 [facility] [address] [address] 6[address] Feb, [facility] [address] [place] [address] 49818- 5099 Feb, [facility] [address] [place] [address] 36466- 6525 Jan, ADHD, predominantly inattentive type F90.0 [facility] [id number] [place] [address] 20933- 0186 Jan, Renal insufficiency N28.9 ; Postablative hypothyroidism E89.0 and History of swelling of feet Z87.39 [facility] [id number] [place] [address] 84915- 1565 Jan, Chronic pain syndrome G89.4 [facility] [facility] [id number] [place] [address] 91941- 5937 Jan, [place] [address] [place] [address] 16366- 0655 Jan, Renal insufficiency N28.9 ; Primary insomnia F51.01 ; Difficulty concentrating R41.840 ; Postablative hypothyroidism E89.0 ; History of swelling of feet Z87.39 ; Chronic pain syndrome G89.4 and Moderate episode of recurrent major depressive disorder F33.1 [facility] [address] [place] [address] 55070- 1107 Jan, [facility] [id number] [place] [address] 39230 -8418 Jan, Candidal dermatitis B37.2 [facility] [id number] [place] [address] 71932- 1394 Dec, [facility] [id number] [place] [address] Dec, [facility] [id number] [place] [address] 61211- 4312 Dec, [facility] [address] [address]- 1278 Dec, Stool color black K92.1 [facility] [address] [address]- 8026 Dec, Diarrhea of presumed infectious origin A09 [place] [address] [place] [address] 19939- 5333 Dec, Right lower quadrant abdominal pain R10.31 and Stool color black K92.1 [facility] [address] [place] [address] [place] [address] Nov, [facility] [facility] [id number] [place] [address] 80374- 9777 14 Nov, 2016 Visit for TB skin test Z11.1 and Pre-employment examination Z02.1 [place] [address] [place] [address] 18076- 2717 03 Nov, 2016 [facility] [address] [id number] [place] [address] October, [facility] [address] [place] [id number] [place] [address] October, [facility] [address] [id number] [place] [address] Aug, [facility] [address] [place] [id number] [place] [address] Aug, Other fatigue R53.83 ; BMI 45.0-49.9, adult Z68.42 ; Edema, unspecified type R60.9 ; Benign essential hypertension I10 and Lumbar degenerative disc disease M51.36 [facility] [address] [id number] [place] [address] Aug, Skin tag L91.8 [facility] [address] [address] Aug, Abnormal laboratory test result R89.9 [facility] [address] [place] [place] [id number], [place] [address] Jul, Insomnia, unspecified type G47.00 [facility] [address] [id number] [place] [address] 20 Jul, 2016 Benign essential hypertension I10 ; BMI 45.0-49.9, adult Z68.42 ; Lumbar degenerative disc disease M51.36 ; Edema, unspecified type R60.9 ; Other fatigue R53.83 and Hypothyroidism, unspecified type E03.9 [facility] [address] [id number] [place] [address] Jul, [facility] [address] [address] Jul, Benign essential hypertension I10 ; BMI 45.0-49.9, adult Z68.42 ; Lumbar degenerative disc disease M51.36 ; Edema, unspecified type R60.9 ; Other fatigue R53.83 and Hypothyroidism, unspecified type E03.9 [facility] [id number] [place] [address] Jun, [facility] [id number] [place] [address] Jun, [facility] [id number] [place] [address] Jun, Benign essential hypertension I10 ; Hypothyroidism, unspecified type E03.9 ; Other fatigue R53.83 ; Midline low back pain without sciatica, unspecified chronicity M54.5 and BMI 45.0-49.9, adult Z68.42 [place] [address] [place] [address] [id number] Jun, Postablative hypothyroidism E89.0 ; Rhinopharyngitis J00 and Encounter for immunization Z23 [address] [id number] Jun, [facility] [address] [facility] [id number] [id number] May, [facility] [address] [id number] [address] May, [facility] [id number], [place] [id number] May, [facility] [id number][place] [address] Apr, Hypothyroidism, unspecified type E03.9 [facility] [id number][place] [id number] Apr, Hypothyroidism, unspecified type E03.9 [facility] [id number][place] [id number] Apr, [facility] [id number][place] [address] Mar, Hypothyroidism, unspecified type E03.9 ; Moderate single current episode of major depressive disorder F32.1 ; Other hyperlipidemia E78.4 and Elevated liver function tests R79.89 [facility] [address] [facility] [id number][place] [id number] Feb, [facility] [address] [id number][place] [address] Dec, Moderate single current episode of major depressive disorder F32.[address] [facility] [address] 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 ; Hypothyroidism, unspecified type E03.9 ; Benign essential hypertension I10 and Uncomplicated asthma, unspecified asthma severity J45.909 [facility] [address]00565100[place] [address] Nov, 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 ; Hypothyroidism, unspecified type E03.9 ; Benign essential hypertension I10 and Uncomplicated asthma, unspecified asthma severity J45.909 [facility] [address] [id number] [id number] October, [facility] [address] [place] [id number] [place] [address] [id number] October, [place] [address] [place] [address] [id number] October, Abnormal laboratory test result R89.9 [facility] [address] [place] [id number] [place] [address] [id number] October, Status post bilateral oophorectomy Z90.722 [address]00565100[place] [address] Sep, [facility] [address] [id number] [id number] Aug, [facility] [address] [place] [address] [place] [address] [id number] Aug, Complex ovarian cyst N83.20 [place] [address] [place] [address] [id number] Aug, Other acute sinusitis, recurrence not specified J01.[address] [facility] [address] [place] [address]005[place]100[place] [id number] Aug, [facility] [address] [id number]- 9670 Jun, [address]00565100[place] [id number] Jun, [place] [address] [place] [address] [id number] May, Allergic rhinitis, unspecified allergic rhinitis type J30.9 [facility] [address] [id number] [address]- 2548 May, [place] [address] [place] [address] [id number] Mar, [place] [address] [place] [address] [id number] Mar, [place] [address] [place] [address] [id number] Jan, Hypothyroidism 244.9 and Cyst in hand 727.43 [place] [address] [place] [address] [id number] Jan, [place] [address] [place] [address] [id number] Dec, [place] [address] [place] [address] [id number] Dec, Acute sinusitis 461.9 and Cough 786.2 [place] [address] [place] [address] [id number] Dec, Insect bite 919.4 [facility] [address] [place] [id number] [id number] Nov, [place] [address] [place] [address] [id number] Nov, [place] [address] [place] [address] [id number] Sep, Obesity, morbid 278.01 ; Sleep apnea, obstructive 327.23 and Fatigue due to sleep pattern disturbance 780.79 [facility] [address] [id number] [address]- 6296 14 Sep, 2014 [facility] [address] [id number] [address]- 6573 Sep, [facility] [id number], [place] [id number] Aug, [facility] [address] [id number] [address]- 1690 Aug, [facility] [id number] [place] [address] [id number] Jul, [facility] [id number] [place] [address] 58432- 6495 Jul, [facility] [address] [id number] [address]- 9366 Jul, [facility] [id number] [place] [address] [id number] Jul, [facility] [id number] [place] [address] [id number] Jun, [facility] [address] [id number] [address]- 0263 Jun, [facility] [id number], [place] [id number] May, [facility] [address] [id number] [address]- 7453 May, [facility] [address] [id number]- 8423 Mar, [facility] [address] [id number] [address]- 5089 Mar, [facility] [address] [id number]92[place]- 2025 Mar, [facility] [id number], [place] [id number] Mar, [facility] [address] [id number] [address]- 7688 Mar, [facility] [address]100[place] [address]- 0078 Mar, [facility] [address] [id number] [address]- 9771 Mar, [address]00565100[place] [id number] Mar, [facility] [address]100[place] [address]- 3042 Mar, [place] [address] [id number] [id number] Mar, [facility] [address] [id number] [address]- 1627 Mar, IMMUNIZATIONS No Known Immunizations SOCIAL HISTORY Never Assessed REASON FOR VISIT Medication question PLAN OF CARE VITAL SIGNS MEDICATIONS Unknown [...]
--- OUTSIDE RECORDS SUMMARY | 2018-06-27 18:36 | XMS REPORT ---
Author Author JUVE Pearl Organization [facility] Address [address] [place] [address] Care Team Providers Care Developmental Education Instructor Name Role Phone JUVE Pearl Unavailable PROBLEMS Type Condition ICD9-CM Code [id number] Code Onset Dates Condition Status SNOMED Code Problem Primary insomnia F51.01 Active 5717913 Problem Renal insufficiency N28.9 Active 882773960 Problem Moderate episode of recurrent major depressive disorder F33.1 Active 59910310 Problem Other chronic pain G89.29 Active 96302835 Problem Acquired hypothyroidism E03.9 Active 669895063 Problem Chronic pain syndrome G89.4 Active 351532829 Problem Difficulty concentrating R41.840 Active 14624323 Problem Fatigue, unspecified type R53.83 Active 68644013 Problem ADHD, predominantly inattentive type F90.0 Active 32307706 Problem Benign essential hypertension I10 Active 4450552 Problem Allergic rhinitis, unspecified allergic rhinitis type J30.9 Active 32703350 Problem Positive urine drug screen R82.5 Active 333862222 Problem Other hyperlipidemia E78.4 Active 44193764 Problem Postablative hypothyroidism E89.0 Active 907233734 Problem Uncomplicated asthma, unspecified asthma severity J45.909 Active 795582239 Problem Major depressive disorder, single episode, unspecified F32.9 Active 03019690 Problem Anxiety F41.9 Active 49274869 Problem Lumbar degenerative disc disease M51.36 Active 59066889 ALLERGIES Substance Reaction Event Type Date Status Compazine Unknown Drug Allergy Sep, Active Tetracycline HCl nausea Drug Allergy Sep, Active Sulfamethoxazole-Trimethoprim hives Drug Allergy Sep, Active Lisinopril cough Drug Allergy Sep, Active HydrOXYzine HCl Unknown Drug Allergy Sep, Active ENCOUNTERS Encounter Location Date Diagnosis [facility] [address] [facility] [id number] [address] Jan, [facility] [id number] [place] [address]60[address] Dec, [facility] [id number] [place] [address]338- 2055 Nov, Edema, unspecified type R60.9 [facility] [id number] [place] [address] 19326- 0338 Nov, Postablative hypothyroidism E89.0 [facility] [id number] [place] [address] 89520- 0210 Nov, [facility] [id number] [place] [address] 73581- 6086 Nov, Generalized abdominal pain R10.84 ; History of abdominal hernia Z87.19 ; Pain of left calf M79.662 and BMI 45.0-49.9, adult Z68.42 [facility] [id number] [place] [address] 99989- 6548 16 Sep, 2017 [facility] [id number] [place] [address] 08132- 8912 Sep, [facility] [id number] [place] [address] 59936- 8595 Sep, Postablative hypothyroidism E89.0 ; Pain in left knee M25.562 ; Edema, unspecified type R60.9 ; Multiple joint pain M25.50 and BMI 45.0-49.9, adult Z68.42 [facility] [address] [address] Aug, [facility] [address] [place] [id number] [place] [address] Jul, History of swelling of feet Z87.39 [facility] [address] [address] Jul, [facility] [address] [place] [address] Jul, Pain in left knee M25.562 ; Other chronic pain G89.29 and BMI 45.0-49.9, adult Z68.42 [facility] [id number] [place] [address]249- 6712 Jun, [facility] [address] [address] Jun, [facility] [address] [address] May, Primary insomnia F51.01 [place] [address] [address] Apr, [place] [address] [address] Apr, [place] [address] [address] Apr, Acute pain of left knee M25.562 ; Renal insufficiency N28.9 ; Fatigue, unspecified type R53.83 ; Postablative hypothyroidism E89.0 and BMI 40.0-44.9, adult Z68.41 [place] [id number] [place] [address]18- 6377 Mar, Acute pain of left knee M25.562 [place] [id number] [place] [address]11- 3711 Feb, Renal insufficiency N28.9 [facility] [id number] [place] [address] 39596- 0641 Feb, [facility] [id number] [place] [address] 18666- 6473 Feb, [facility] [address] [address]11- 6066 Feb, [facility] [id number] [place] [address] 52036- 5380 20 Sep, 2017 Renal insufficiency N28.9 ; ADHD, predominantly inattentive type F90.0 ; Postablative hypothyroidism E89.0 ; Primary insomnia F51.01 ; Difficulty concentrating R41.840 ; History of swelling of feet Z87.39 ; Chronic pain syndrome G89.4 and Moderate episode of recurrent major depressive disorder F33.1 [facility] [id number] [place] [address] 05826- 9965 Feb, [facility] [address] [address]- 7[address] Feb, [facility] [address] [address] Jan, ADHD, predominantly inattentive type F90.0 [place] [address] [address] 8[address] Jan, Renal insufficiency N28.9 ; Postablative hypothyroidism E89.0 and History of swelling of feet Z87.39 [place] [id number] [place] [address]052- 9331 Jan, Chronic pain syndrome G89.4 [facility] [address] [address]- 5973 Jan, [place] [id number] [place] [address] 51033- 1135 Jan, Renal insufficiency N28.9 ; Primary insomnia F51.01 ; Difficulty concentrating R41.840 ; Postablative hypothyroidism E89.0 ; History of swelling of feet Z87.39 ; Chronic pain syndrome G89.4 and Moderate episode of recurrent major depressive disorder F33.1 [facility] [id number] [place] [address]7319- [address] Jan, [facility] [id number] [place] [address]8586 [address]7781 Jan, Candidal dermatitis B37.2 [place] [address] [address] Dec, [facility] [id number] [address] Dec, [place] [id number] [place] [address] 79886- 5467 Dec, [place] [id number] [place] [address] 26645- 5452 Dec, Stool color black K92.1 [place] [id number] [place] [address] 29138- 4538 Dec, Diarrhea of presumed infectious origin A09 [place] [id number] [place] [address] 34642- 0280 Dec, Right lower quadrant abdominal pain R10.31 and Stool color black K92.1 [facility] [address] [place] [id number] [place] [address] Nov, [place] [id number] [place] [address] 88185- 5296 Nov, Visit for TB skin test Z11.1 and Pre-employment examination Z02.1 [place] [id number] [place] [address] 70032- 0695 Nov, [facility] [id number] [place] [address] October, [facility] [address] [place] [id number] [place] [address] October, [facility] [address] [place] [id number] [place] [address] Aug, [facility] [address] [place] [id number] [place] [address] Aug, Other fatigue R53.83 ; BMI 45.0-49.9, adult Z68.42 ; Edema, unspecified type R60.9 ; Benign essential hypertension I10 and Lumbar degenerative disc disease M51.36 [facility] [id number], [place] [address] 08 Aug, 2016 Skin tag L91.8 [facility] [id number], [place] [address] Aug, Abnormal laboratory test result R89.9 [facility] [id number], [place] [address] Jul, Insomnia, unspecified type G47.00 [facility] [id number], [place] [address] 20 Jul, 2016 Benign essential hypertension I10 ; BMI 45.0-49.9, adult Z68.42 ; Lumbar degenerative disc disease M51.36 ; Edema, unspecified type R60.9 ; Other fatigue R53.83 and Hypothyroidism, unspecified type E03.9 [facility] [id number], [place] [address] Jul, [facility] [id number] [place] [address] Jul, Benign essential hypertension I10 ; BMI 45.0-49.9, adult Z68.42 ; Lumbar degenerative disc disease M51.36 ; Edema, unspecified type R60.9 ; Other fatigue R53.83 and Hypothyroidism, unspecified type E03.9 [facility] [id number], [place] [address] Jun, [facility] [id number], [place] [address] Jun, [facility] [id number], [place] [address] Jun, Benign essential hypertension I10 ; Hypothyroidism, unspecified type E03.9 ; Other fatigue R53.83 ; Midline low back pain without sciatica, unspecified chronicity M54.5 and BMI 45.0-49.9, adult Z68.42 [place] [id number] [id number] Jun, Postablative hypothyroidism E89.0 ; Rhinopharyngitis J00 and Encounter for immunization Z23 [place] [id number] [phone] Jun, [place] [id number] [place] [address] [phone] May, [facility] [address] [address] May, [place] [id number] [place] [address] [id number] May, [address] [place] [id number] [place] [address] [id number] Apr, Hypothyroidism, unspecified type E03.9 [id number] [place] [address] [id number] Apr, Hypothyroidism, unspecified type E03.9 [id number] [place] [address] [id number] Apr, [id number] [place] [address] [id number] Mar, Hypothyroidism, unspecified type E03.9 ; Moderate single current episode of major depressive disorder F32.1 ; Other hyperlipidemia E78.4 and Elevated liver function tests R79.89 [facility] [address] [id number] [id number] Feb, [id number] [place] [address] [phone] Dec, Moderate single current episode of major depressive disorder F32.1 [place] [id number] [id number] Nov, [id number] [place] [address] [id number] Nov, [facility] [address] [id number] [id number] Nov, Hypothyroidism, unspecified type E03.9 ; Other hyperlipidemia E78.4 and Elevated liver function tests R79.89 [facility] [address]00565100[place] [id number] Nov, 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 ; Hypothyroidism, unspecified type E03.9 ; Benign essential hypertension I10 and Uncomplicated asthma, unspecified asthma severity J45.909 [address] [id number] [id number] Nov, 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 ; Hypothyroidism, unspecified type E03.9 ; Benign essential hypertension I10 and Uncomplicated asthma, unspecified asthma severity J45.909 [facility] [address]00565100[place] [id number] October, [facility] [address] [id number] [phone] October, [place] [address] [place] [id number] [place] [address] [id number] October, Abnormal laboratory test result R89.9 [address] [place] [id number] [id number] October, Status post bilateral oophorectomy Z90.722 [address] [id number] [id number] Sep, [place] [address] [phone] Aug, [place] [address] [place] [id number] [place] [address] [id number] Aug, Complex ovarian cyst N83.20 [address]00565100[place] [id number] Aug, Other acute sinusitis, recurrence not specified J01.80 [facility] [id number] [place] [address] [id number] Aug, [place] [address] [address]47 Jun, [address] [id number] [place] [address] [id number] Jun, [address] [id number] May, Allergic rhinitis, unspecified allergic rhinitis type J30.9 [place] [address] [address]- [address]3 May, [address] [id number] Mar, [address] [id number] Mar, [address] [id number] Jan, Hypothyroidism 244.9 and Cyst in hand 727.43 [place] [address] [place] [address] [id number] Jan, [place] [address] [place] [address] [id number] Dec, [place] [address] [place] [address] [id number] Dec, Acute sinusitis 461.9 and Cough 786.[address] [id number] Dec, Insect bite 919.4 [facility] [address]100[place] [id number] Nov, [place] [id number] [place] [address] [id number] Nov, [facility] [id number], [place] [id number] Sep, Obesity, morbid 278.01 ; Sleep apnea, obstructive 327.23 and Fatigue due to sleep pattern disturbance 780.79 [facility] [id number] [place] [address] 55392- 2546 Sep, [facility] [address] 78[address]- 2546 Sep, [facility] [id number] [place] [address] [id number] Aug, [facility] [id number] [place] [address] 21008- 2546 Aug, [facility] [address] [place] [id number] [place] [address] [id number] Jul, [facility] [id number] [place] [address] 28848- 2546 Jul, [facility] [id number] [place] [address] 52343- 2546 Jul, [facility] [address] [place] [id number] [place] [address] [id number] Jul, [facility] [address] [place] [id number] [place] [address] [id number] Jun, [facility] [address] [place] [address] 44182- 2546 Jun, [facility] [address]00565100[place] [id number] May, [facility] [id number] [place] [address] 74404- 2546 May, [facility] [id number] [place] [address] 07400- 2546 Mar, [facility] [address] [place] [address] Mar, [facility] [address]00565100[place] [address] Mar, [facility] [address]00565100[place] [id number] Mar, [facility] [address]65100[place] [address]- 9072 Mar, [facility] [address] [id number] [address]- 8560 Mar, [facility] [id number] [place] [address] 667967- 1071 Mar, [address]00565100[place] [id number] Mar, [facility] [address]00565100[place] [address] Mar, [address]65100[place] [id number] Mar, [facility] [address]65[address] [address] Mar, IMMUNIZATIONS No Known Immunizations SOCIAL HISTORY Never Assessed REASON FOR VISIT Thyroid and left knee pain-[place] BILL PLAN OF CARE Activity Details Follow Up 3 Months Reason:thyroid VITAL SIGNS Height 67.5 in 2017-10-04 Weight 302.6 lbs 2017-10-04 Temperature 98.0 degrees Fahrenheit 2017-10-04 Heart Rate 82 bpm 2017-10-04 Respiratory Rate 20 2017-10-04 BMI 46.69 kg/m2 2017-10-04 Blood pressure systolic 128 mmHg 2017-10-04 Blood pressure diastolic 84 mmHg 2017-10-04 MEDICATIONS Medication Instructions Dosage Frequency Start Date End Date Duration Status Albuterol Sulfate 2.5 mg /3 mL (0.083 %) 1 Each by Inhalation route every 4 hours for cough and wheeze PRN for wheezing or cough Jul, Active Knee Brace - Wear knee brace when up and about Apr, Active Bentyl 10 mg Orally Four times a day 1 capsule 6h 08 Nov, 2015 Not- Taking Ventolin HFA 90 mcg/actuation inhale 2-4 puff by Inhalation route as needed every 4 hours PRN for cough or wheeze Jul, Active Venlafaxine HCl 75 MG TAKE ONE TABLET BY MOUTH TWICE DAILY WITH FOOD 30 Active Gabapentin 300 MG Orally 3 times a day 1 capsule 8h 28 Active CoQ-10 Not-Taking Meloxicam 15 mg Orally Once a day 1 tablet 24h 24 Jan, 2017 30 day(s) Not-Taking Lidocaine HCl 3 % Externally Twice a day as directed 12h Apr, Not-Taking Levothyroxine Sodium 25 MCG Orally Once a day 1 tablet on an empty stomach in the morning 24h 30 Active Furosemide 60 mg Orally Once a day 1 tablet 24h Active Claritin 10 MG Orally Once a day 1 tablet 24h Active Zofran ODT 4 MG Active Cyclobenzaprine HCl 10 mg Orally Three times a day 1 tablet as needed 8h Not-Taking Trazodone HCl 50 MG Orally Once a day 1 tablet at bedtime as needed 24h Active Multivitamin Not-Taking RESULTS No Results PROCEDURES Procedure Date Ordered Result Body Site ASSAY THYROID STIM HORMONE October 04, 2017 COMPREHEN METABOLIC PANEL October 04, 2017 CCP ANTIBODY October 04, 2017 RHEUMATOID FACTOR, QUANT October 04, 2017 ANTINUCLEAR ANTIBODIES October 04, 2017 C-REACTIVE PROTEIN October 04, 2017 RBC SED RATE, AUTOMATED October 04, 2017 INSTRUCTIONS MEDICATIONS ADMINISTERED No Known Medications MEDICAL [...]
--- OUTSIDE RECORDS SUMMARY | 2018-06-27 18:36 | XMS REPORT ---
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 Name Role Phone JUVE Pearl Unavailable PROBLEMS Type Condition ICD9-CM Code UBQ82-UT Code Onset Dates Condition Status SNOMED Code Problem Primary insomnia F51.01 Active 2472282 Problem Renal insufficiency N28.9 Active 810112841 Problem Moderate episode of recurrent major depressive disorder F33.1 Active 88727919 Problem Other chronic pain G89.29 Active 95720667 Problem Acquired hypothyroidism E03.9 Active 835428318 Problem Chronic pain syndrome G89.4 Active 222803669 Problem Difficulty concentrating R41.840 Active 74534186 Problem Fatigue, unspecified type R53.83 Active 32387004 Problem ADHD, predominantly inattentive type F90.0 Active 55754022 Problem Benign essential hypertension I10 Active 7257177 Problem Allergic rhinitis, unspecified allergic rhinitis type J30.9 Active 85091857 Problem Positive urine drug screen R82.5 Active 859315940 Problem Other hyperlipidemia E78.4 Active 51707651 Problem Postablative hypothyroidism E89.0 Active 202931369 Problem Uncomplicated asthma, unspecified asthma severity J45.909 Active 372003676 Problem Major depressive disorder, single episode, unspecified F32.9 Active 71235928 Problem Anxiety F41.9 Active 83742792 Problem Lumbar degenerative disc disease M51.36 Active 40366689 ALLERGIES No Information ENCOUNTERS Encounter Location Date Diagnosis [facility] [address] [facility] [id number] [address] Jan, [facility] [address] [address] Dec, [facility] [address] [id number] [address] Nov, Edema, unspecified type R60.9 [facility] [id number] [place] [address]385- [address]50 Nov, Postablative hypothyroidism E89.0 [facility] [id number] [place] [address] 42239- 5743 Nov, [facility] [id number] [place] [address] 03404- 2165 Nov, Generalized abdominal pain R10.84 ; History of abdominal hernia Z87.19 ; Pain of left calf M79.662 and BMI 45.0-49.9, adult Z68.42 [place] [id number] [place] [address] 65490- 3383 Sep, [place] [id number] [place] [address] 72952- 4244 Sep, [facility] [id number] [place] [address] 25470- 6199 Sep, Postablative hypothyroidism E89.0 ; Pain in left knee M25.562 ; Edema, unspecified type R60.9 ; Multiple joint pain M25.50 and BMI 45.0-49.9, adult Z68.42 [place] [address] [place] [address] 09137- 9799 Aug, [facility] [address] [place] [id number] [place] [address] Jul, History of swelling of feet Z87.39 [facility] [address] [place] [address] 52663- 8799 Jul, [facility] [id number] [place] [address]8311 -2445 Jul, Pain in left knee M25.562 ; Other chronic pain G89.29 and BMI 45.0-49.9, adult Z68.42 [place] [id number] [place] [address] 01767- 3302 Jun, [place] [id number] [place] [address] 04795- 0486 Jun, [place] [address] [address] May, Primary insomnia F51.01 [place] [address] [address]- 9705 Apr, [place] [address] [address]- 265[address] Apr, [place] [id number] [place] [address] 50644- 6230 Apr, Acute pain of left knee M25.562 ; Renal insufficiency N28.9 ; Fatigue, unspecified type R53.83 ; Postablative hypothyroidism E89.0 and BMI 40.0-44.9, adult Z68.41 [place] [address] [address]- 1819 Mar, Acute pain of left knee M25.562 [place] [id number] [place] [address] 00006- 1388 28 Feb, 2017 Renal insufficiency N28.9 [place] [id number] [place] [address] 89025- 8000 Feb, [place] [id number] [place] [address] 77411- 3250 Feb, [place] [id number] [place] [address] 64863- 0583 Feb, [place] [id number] [place] [address] 18503- 4220 Feb, Renal insufficiency N28.9 ; ADHD, predominantly inattentive type F90.0 ; Postablative hypothyroidism E89.0 ; Primary insomnia F51.01 ; Difficulty concentrating R41.840 ; History of swelling of feet Z87.39 ; Chronic pain syndrome G89.4 and Moderate episode of recurrent major depressive disorder F33.1 [facility] [address] [address] Feb, [facility] [address] [place] [address] 37806- 7553 Feb, [facility] [address] [place] [address] 68136- 9168 Jan, ADHD, predominantly inattentive type F90.0 [facility] [id number] [place] [address] 26412- 8693 Jan, Renal insufficiency N28.9 ; Postablative hypothyroidism E89.0 and History of swelling of feet Z87.39 [facility] [id number] [place] [address] 19830- 8402 Jan, Chronic pain syndrome G89.4 [place] [id number] [place] [address] 79598- 2396 Jan, [place] [address] [place] [address] 36256- 3174 Jan, Renal insufficiency N28.9 ; Primary insomnia F51.01 ; Difficulty concentrating R41.840 ; Postablative hypothyroidism E89.0 ; History of swelling of feet Z87.39 ; Chronic pain syndrome G89.4 and Moderate episode of recurrent major depressive disorder F33.1 [facility] [address] [place] [address] 17216- 2628 Jan, [facility] [address] [place] [address]20 [address]3591 Jan, Candidal dermatitis B37.2 [facility] [id number] [place] [address] 80908- 2771 Dec, [facility] [id number] [place] [address] Dec, [facility] [id number] [place] [address] 56633- 9608 Dec, [facility] [address] [address] 3055 Dec, Stool color black K92.1 [facility] [address] [address] 3[address] Dec, Diarrhea of presumed infectious origin A09 [place] [address] [place] [address] 81193- 1133 Dec, Right lower quadrant abdominal pain R10.31 and Stool color black K92.1 [facility] [address] [place] [id number] [place] [address] Nov, [place] [id number] [place] [address] 69654- 9850 14 Nov, 2016 Visit for TB skin test Z11.1 and Pre-employment examination Z02.1 [place] [address] [place] [address] 32461- 3851 03 Nov, 2016 [facility] [address] [place] [id number] [place] [address] October, [facility] [address] [place] [id number] [place] [address] October, [facility] [address] [place] [address] [id number] [place] [address] Aug, [facility] [address] [place] [address] [id number] [place] [address] Aug, Other fatigue R53.83 ; BMI 45.0-49.9, adult Z68.42 ; Edema, unspecified type R60.9 ; Benign essential hypertension I10 and Lumbar degenerative disc disease M51.36 [facility] [address] [place] [id number] [place] [address] Aug, Skin tag L91.8 [facility] [address] [address] Aug, Abnormal laboratory test result R89.9 [facility] [address] [place] [id number], [place] [address] Jul, Insomnia, unspecified type G47.00 [facility] [address] [place] [address] [id number] [place] [address] 20 Jul, 2016 Benign essential hypertension I10 ; BMI 45.0-49.9, adult Z68.42 ; Lumbar degenerative disc disease M51.36 ; Edema, unspecified type R60.9 ; Other fatigue R53.83 and Hypothyroidism, unspecified type E03.9 [facility] [address] [place] [address] [id number] [place] [address] Jul, [facility] [address] [address] Jul, Benign essential hypertension I10 ; BMI 45.0-49.9, adult Z68.42 ; Lumbar degenerative disc disease M51.36 ; Edema, unspecified type R60.9 ; Other fatigue R53.83 and Hypothyroidism, unspecified type E03.9 [facility] [address] [place] [id number] [place] [address] Jun, [facility] [address] [place] [id number] [place] [address] Jun, [facility] [address] [place] [address] [id number] [place] [address] Jun, Benign essential hypertension I10 ; Hypothyroidism, unspecified type E03.9 ; Other fatigue R53.83 ; Midline low back pain without sciatica, unspecified chronicity M54.5 and BMI 45.0-49.9, adult Z68.42 [place] [id number] [place] [address] [id number] Jun, Postablative hypothyroidism E89.0 ; Rhinopharyngitis J00 and Encounter for immunization Z23 [address] [id number] Jun, [facility] [address] [facility] [id number][place] [id number] May, [facility] [address] [id number] [address] May, [facility] [id number][place] [id number] May, [facility] [id number][place] [id number] Apr, Hypothyroidism, unspecified type E03.9 [facility] [id number], [place] [address] Apr, Hypothyroidism, unspecified type E03.9 [facility] [id number][place] [id number] Apr, [facility] [id number][place] [id number] Mar, Hypothyroidism, unspecified type E03.9 ; Moderate single current episode of major depressive disorder F32.1 ; Other hyperlipidemia E78.4 and Elevated liver function tests R79.89 [facility] [address] [facility] [id number] [id number] Feb, [facility] [address] [id number][place] [address] Dec, Moderate single current episode of major depressive disorder F32.1 [facility] [address] [facility] [id number][place] [id number] Nov, [facility] [address] [id number][place] [id number] Nov, [facility] [address] [id number][place] [id number] Nov, Hypothyroidism, unspecified type E03.9 ; Other hyperlipidemia E78.4 and Elevated liver function tests R79.89 [place] [id number], [place] [id number] Nov, 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 ; Hypothyroidism, unspecified type E03.9 ; Benign essential hypertension I10 and Uncomplicated asthma, unspecified asthma severity J45.909 [facility] [address]00565100[place] [address] Nov, 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 ; Hypothyroidism, unspecified type E03.9 ; Benign essential hypertension I10 and Uncomplicated asthma, unspecified asthma severity J45.909 [facility] [address] [id number] [address] October, [facility] [address] [place] [address] [place] [address] [id number] October, [place] [id number] [place] [address] [id number] October, Abnormal laboratory test result R89.9 [facility] [address] [place] [id number] [place] [address] [id number] October, Status post bilateral oophorectomy Z90.722 [address]00565100[place] [address] Sep, [facility] [address] [place] 50[place] [id number] Aug, [facility] [address] [place] [address] [place] [address] [id number] Aug, Complex ovarian cyst N83.20 [place] [address] [place] [address] [id number] Aug, Other acute sinusitis, recurrence not specified J01.80 [facility] [address] [place] [address] [id number] Aug, [facility] [address] 91297339- 2845 Jun, [address]00565100[place] [id number] Jun, [place] [id number] [place] [address] [id number] May, Allergic rhinitis, unspecified allergic rhinitis type J30.9 [facility] [address] [id number] [address]- 2549 May, [place] [id number] [place] [address] [id number] Mar, [place] [address] [place] [address] [id number] Mar, [place] [address] [place] [address] [id number] Jan, Hypothyroidism 244.9 and Cyst in hand 727.43 [place] [address] [place] [address] [id number] Jan, [place] [address] [place] [address] [id number] Dec, [place] [address] [place] [address] [id number] Dec, Acute sinusitis 461.9 and Cough 786.2 [place] [address] [place] [address] [id number] Dec, Insect bite 919.4 [facility] [address] [id number] [id number] Nov, [place] [address] [place] [address] [id number] Nov, [place] [address] [place] [address] [id number] Sep, Obesity, morbid 278.01 ; Sleep apnea, obstructive 327.23 and Fatigue due to sleep pattern disturbance 780.79 [facility] [address] [id number] [address]- 9817 14 Sep, 2014 [facility] [address] [id number] [address] Sep, [address] [id number], [place] [id number] Aug, [facility] [address] [id number] [address]- 0018 Aug, [facility] [id number] [place] [address] [id number] Jul, [facility] [id number] [place] [address] 53289- 4759 Jul, [facility] [address] [id number] [address]- 2805 Jul, [facility] [id number] [place] [address] [id number] Jul, [facility] [id number] [place] [address] [id number] Jun, [facility] [address] [id number] [address]- 9218 Jun, [facility] [id number], [place] [id number] May, [facility] [address] [id number] [address]- [address]79 May, [facility] [address] [id number]- 9103 Mar, [facility] [address] [id number] [address] 8725 Mar, [facility] [address] [id number]- 4009 Mar, [facility] [id number], [place] [id number] Mar, [facility] [address] [id number] [address]- 9302 Mar, [facility] [address]100[place], [place] [address]- 6917 Mar, [facility] [address] [id number], [place] [address]- 7285 Mar, [address]00565100[place], [place] [id number] Mar, [facility] [address]100[place], [place] [address]- 6562 Mar, [place] [address] [place] [id number] [id number] Mar, [facility] [address] [id number] [address]- 4763 Mar, IMMUNIZATIONS No Known Immunizations SOCIAL HISTORY [...]
--- OUTSIDE RECORDS SUMMARY | 2018-06-27 18:37 | XMS REPORT ---
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 Role Phone JUVE MARCUS Unavailable PROBLEMS Type Condition ICD9-CM Code TJT45-DN Code Onset Dates Condition Status SNOMED Code Problem Postablative hypothyroidism E89.0 Active 015405187 Problem Lumbar degenerative disc disease M51.36 Active 13893227 Problem Major depressive disorder, single episode, unspecified F32.9 Active 54044933 Problem ADHD, predominantly inattentive type F90.0 Active 26953006 Problem Primary insomnia F51.01 Active 2547603 Problem Difficulty concentrating R41.840 Active 16997545 Problem Moderate episode of recurrent major depressive disorder F33.1 Active 81158144 Problem Chronic pain syndrome G89.4 Active 763555056 Problem Renal insufficiency N28.9 Active 162158158 Problem Allergic rhinitis, unspecified allergic rhinitis type J30.9 Active 73534736 Problem Uncomplicated asthma, unspecified asthma severity J45.909 Active 992419271 Problem Anxiety F41.9 Active 01973828 Problem Benign essential hypertension I10 Active 7241569 Problem Other hyperlipidemia E78.4 Active 93499053 ALLERGIES No Information SOCIAL HISTORY Never Assessed PLAN OF CARE VITAL SIGNS MEDICATIONS Unknown Medications RESULTS No Results PROCEDURES No Known procedures IMMUNIZATIONS No Known Immunizations MEDICAL (GENERAL) HISTORY Type Description Date Medical [...] 2016 Surgical History Abdominal hernia repair 09/2015 Hospitalization History Vomiting 2011 Hospitalization History Asthma exac Hospitalization History Mononucleosis Hospitalization History Pneumonia Hospitalization History Surgery(s) only Hospitalization History chest pain 11/2016 Hospitalization History [facility]- Diarrhea/abdominal pain 11/2016
--- OUTSIDE RECORDS SUMMARY | 2018-06-27 18:37 | XMS REPORT ---
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 Name Role Phone DEMETRI JASON Unavailable PROBLEMS Type Condition ICD9-CM Code FQB03-DO Code Onset Dates Condition Status SNOMED Code Problem Primary insomnia F51.01 Active 7837458 Problem Renal insufficiency N28.9 Active 957035392 Problem Moderate episode of recurrent major depressive disorder F33.1 Active 03150737 Problem Other chronic pain G89.29 Active 12230707 Problem Acquired hypothyroidism E03.9 Active 649314735 Problem Chronic pain syndrome G89.4 Active 422623259 Problem Difficulty concentrating R41.840 Active 31310718 Problem Fatigue, unspecified type R53.83 Active 50869886 Problem ADHD, predominantly inattentive type F90.0 Active 49213900 Problem Benign essential hypertension I10 Active 1214676 Problem Allergic rhinitis, unspecified allergic rhinitis type J30.9 Active 00182807 Problem Positive urine drug screen R82.5 Active 982994898 Problem Other hyperlipidemia E78.4 Active 81018464 Problem Postablative hypothyroidism E89.0 Active 435932921 Problem Uncomplicated asthma, unspecified asthma severity J45.909 Active 677015569 Problem Major depressive disorder, single episode, unspecified F32.9 Active 69094902 Problem Anxiety F41.9 Active 66347399 Problem Lumbar degenerative disc disease M51.36 Active 23066639 ALLERGIES Substance Reaction Event Type Date Status Compazine Unknown Drug Allergy Mar, Active Tetracycline HCl nausea Drug Allergy Mar, Active Sulfamethoxazole-Trimethoprim hives Drug Allergy Mar, Active Lisinopril cough Drug Allergy Mar, Active HydrOXYzine HCl Unknown Drug Allergy Mar, Active ENCOUNTERS Encounter Location Date Diagnosis [facility] [address] [facility] [id number] [address] Nov, [facility] [address] [id number], [place] [address] October, [facility] [id number] [place] [address] 89404- 1088 Sep, [facility] [id number] [place] [address] 86359- 2649 Sep, [facility] [id number] [place] [address] 54379- 2372 Sep, Postablative hypothyroidism E89.0 ; Pain in left knee M25.562 ; Edema, unspecified type R60.9 ; Multiple joint pain M25.50 and BMI 45.0-49.9, adult Z68.42 [facility] [id number] [place] [address] 58421- 7102 Aug, [facility] [address] [address] 12 Jul, 2017 History of swelling of feet Z87.39 [facility] [id number] [place] [address] 73090- 1376 Jul, [facility] [id number] [place] [address]80 [address]4042 Jul, Pain in left knee M25.562 ; Other chronic pain G89.29 and BMI 45.0-49.9, adult Z68.42 [facility] [address] [place] [address] 17487- 8058 Jun, [facility] [id number] [place] [address] 35092- 4044 Jun, [facility] [id number] [place] [address] 32745- 8543 May, Primary insomnia F51.01 [facility] [address] [place] [address] 02903- 7329 Apr, [facility] [id number] [place] [address] 09806- 4974 Apr, [facility] [address] [place] [address] 78550- 7580 Apr, Acute pain of left knee M25.562 ; Renal insufficiency N28.9 ; Fatigue, unspecified type R53.83 ; Postablative hypothyroidism E89.0 and BMI 40.0-44.9, adult Z68.41 [facility] [id number] [place] [address] 19234- 6303 Mar, Acute pain of left knee M25.562 [facility] [id number] [place] [address] 56397- 8437 Feb, Renal insufficiency N28.9 [facility] [id number] [place] [address] 99933- 5850 Feb, [place] [id number] [place] [address] 78055- 8074 Feb, [facility] [address] [place] [address] 52856- 3890 Feb, [facility] [id number] [place] [address] 00925- 3201 Feb, Renal insufficiency N28.9 ; ADHD, predominantly inattentive type F90.0 ; Postablative hypothyroidism E89.0 ; Primary insomnia F51.01 ; Difficulty concentrating R41.840 ; History of swelling of feet Z87.39 ; Chronic pain syndrome G89.4 and Moderate episode of recurrent major depressive disorder F33.1 [facility] [address] [place] [address] 59739- 2469 Feb, [place] [id number] [place] [address] 78344- 2489 Feb, [facility] [address] [place] [address] 76038- 6865 Jan, ADHD, predominantly inattentive type F90.0 [place] [id number] [place] [address] 19127- 2358 Jan, Renal insufficiency N28.9 ; Postablative hypothyroidism E89.0 and History of swelling of feet Z87.39 [facility] [address] [place] [address] 01617- 2836 Jan, Chronic pain syndrome G89.4 [facility] [id number] [place] [address] 74922- 0220 Jan, [place] [id number] [place] [address] 33279- 4035 Jan, Renal insufficiency N28.9 ; Primary insomnia F51.01 ; Difficulty concentrating R41.840 ; Postablative hypothyroidism E89.0 ; History of swelling of feet Z87.39 ; Chronic pain syndrome G89.4 and Moderate episode of recurrent major depressive disorder F33.1 [place] [id number] [place] [address] 18210- 1255 Jan, [facility] [id number] [place] [address] 95006 -4610 Jan, Candidal dermatitis B37.2 [place] [id number] [place] [address] 19408- 5452 Dec, [facility] [id number] [place] [address] Dec, [place] [id number] [place] [address] 52997- 9428 Dec, [place] [address] [place] [address] 30292- 5889 Dec, Stool color black K92.1 [place] [id number] [place] [address] 72730- 3710 Dec, Diarrhea of presumed infectious origin A09 [facility] [address] [place] [address] 94759- 0896 Dec, Right lower quadrant abdominal pain R10.31 and Stool color black K92.1 [facility] [id number] [address] 26 Nov, 2016 [facility] [id number] [place] [address] 74778- 8252 14 Nov, 2016 Visit for TB skin test Z11.1 and Pre-employment examination Z02.1 [facility] [address] [place] [address] 86000- 8723 03 Nov, 2016 [facility] [id number] [place] [address] October, [facility] [address] [address] October, [facility] [id number] [place] [address] Aug, [facility] [id number] [place] [address] 09 Aug, 2016 Other fatigue R53.83 ; BMI 45.0-49.9, adult Z68.42 ; Edema, unspecified type R60.9 ; Benign essential hypertension I10 and Lumbar degenerative disc disease M51.36 [facility] [id number] [place] [address] 08 Aug, 2016 Skin tag L91.8 [facility] [id number] [place] [address] 06 Aug, 2016 Abnormal laboratory test result R89.9 [facility] [id number] [place] [address] Jul, Insomnia, unspecified type G47.00 [facility] [id number] [place] [address] 20 Jul, 2016 Benign essential hypertension I10 ; BMI 45.0-49.9, adult Z68.42 ; Lumbar degenerative disc disease M51.36 ; Edema, unspecified type R60.9 ; Other fatigue R53.83 and Hypothyroidism, unspecified type E03.9 [facility] [id number] [address] Jul, [facility] [id number] [place] [address] Jul, Benign essential hypertension I10 ; BMI 45.0-49.9, adult Z68.42 ; Lumbar degenerative disc disease M51.36 ; Edema, unspecified type R60.9 ; Other fatigue R53.83 and Hypothyroidism, unspecified type E03.9 [facility] [id number] [place] [address] Jun, [facility] [id number] [place] [address] Jun, [facility] [id number] [place] [address] Jun, Benign essential hypertension I10 ; Hypothyroidism, unspecified type E03.9 ; Other fatigue R53.83 ; Midline low back pain without sciatica, unspecified chronicity M54.5 and BMI 45.0-49.9, adult Z68.42 [place] [id number] [place] [address] [id number] Jun, Postablative hypothyroidism E89.0 ; Rhinopharyngitis J00 and Encounter for immunization Z23 [place] [id number] [place] [address] [id number] Jun, [address] [address] [place] [address] [id number] May, [facility] [id number] [place] [address] May, [id number] [place] [address] [id number] May, [address] [phone] Apr, Hypothyroidism, unspecified type E03.9 [facility] [id number] [place] [phone] Apr, Hypothyroidism, unspecified type E03.9 [facility] [id number] [place] [id number] Apr, [facility] [id number] [phone] Mar, Hypothyroidism, unspecified type E03.9 ; Moderate single current episode of major depressive disorder F32.1 ; Other hyperlipidemia E78.4 and Elevated liver function tests R79.89 [facility] [address] [id number] [phone] Feb, [address]00565100[place] [id number] Dec, Moderate single current episode of major depressive disorder F32.1 [facility] [address]00565100[place] [phone] Nov, [place] [address]00565100[place] [phone] Nov, [facility] [address] [id number] [place] [phone] Nov, Hypothyroidism, unspecified type E03.9 ; Other hyperlipidemia E78.4 and Elevated liver function tests R79.89 [id number] [id number] Nov, 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 ; Hypothyroidism, unspecified type E03.9 ; Benign essential hypertension I10 and Uncomplicated asthma, unspecified asthma severity J45.909 [id number] [id number] 08 Nov, 2015 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 ; Hypothyroidism, unspecified type E03.9 ; Benign essential hypertension I10 and Uncomplicated asthma, unspecified asthma severity J45.909 [facility] [address] [id number] [id number] October, [facility] [id number] [place] [address] [id number] October, [facility] [address] [place] [address] [place] [address] [id number] October, Abnormal laboratory test result R89.9 [facility] [address] [id number] October, Status post bilateral oophorectomy Z90.722 [address] [place] [address] [id number] Sep, [facility] [address] [place] [address] [place] [address] [id number] Aug, [facility] [address] [place] [address] [phone] Aug, Complex ovarian cyst N83.20 [address] [place] [address] [id number] Aug, Other acute sinusitis, recurrence not specified J01.80 [address] [place]366765[place] [id number] Aug, [place] [id number] [place] [address] [phone]- 5055 Jun, [facility] [address] [place] [address] [place] [address] [id number] Jun, [address] [place] [address] [id number] May, Allergic rhinitis, unspecified allergic rhinitis type J30.9 [facility] [id number] [place] [address] [phone]- 7676 May, [facility]00565100[place] [phone] Mar, [address] [place] [address] [id number] Mar, [address] [place] [address] [id number] Jan, Hypothyroidism 244.9 and Cyst in hand 727.[address] [id number] Jan, [address] [place] [address] [id number] Dec, [address] [place] [address] [id number] Dec, Acute sinusitis 461.9 and Cough 786.[address] [id number] Dec, Insect bite 919.4 [address]65100[place] [address] Nov, [address] [place] [address] [id number] Nov, [address] [place] [address] [id number] Sep, Obesity, morbid 278.01 ; Sleep apnea, obstructive 327.23 and Fatigue due to sleep pattern disturbance 780.79 [facility] [id number] [place] [address] [phone]- 2396 Sep, [facility] [address] [phone]- 1666 Sep, [address] [place] [address] [id number] Aug, [facility] [id number] [place] [address] [phone] Aug, [facility] [address] [id number] [place] [phone] Jul, [facility] [address] [facility] [id number], [place] [address] Jul, [facility] [address] [facility] [id number], [place] [address]- 3173 Jul, [facility] [place] [address] [id number] [place] [id number] Jul, [facility] [id number] [place] [phone] Jun, [facility] [address] [id number], [place] [address]- 3510 Jun, [facility] [id number] [place] [id number] May, [facility] [address] [id number], [place] [address]- 6820 May, [facility] [address] [id number], [place] [address]- 2497 Mar, [facility] [address] [id number], [place] [address]- 5765 Mar, [facility] [address] [id number], [place] [address]- 7847 Mar, [facility] [address] [id number] [place] [id number] Mar, [facility] [address] [facility] [id number][place]- 7539 Mar, [facility] [address] [facility] [id number], [place] [address]- 0063 Mar, [facility] [address] [facility] [id number], [place] [address]- 5787 Mar, [facility] [address] [id number] [place] [id number] Mar, [facility] [address] [facility] [id number], [place] [address]- 3071 Mar, [facility] [place] [facility] [address] [facility] [id number] [place] [phone] Mar, [facility] [address] [facility] [id number], [place] [address]- 3756 Mar, IMMUNIZATIONS No Known Immunizations SOCIAL HISTORY Never Assessed REASON FOR VISIT knee pain (left knee), has been hurting for several months, now has worsened, on wednesday she went to stand and states that when she went to stand felt like the whole back of the knee tore, Went to [facility], was given toradol and steroid shot, thought that she might have torn her meniscus based on CT performed at the hospital, called an ortho in [place] and cannot afford the 150.00 [facility] PLAN OF CARE Activity Details Follow Up ortho consult Reason: VITAL SIGNS Height 67.5 in 2017-03-30 Weight 295.3 lbs 2017-03-30 Temperature 97.1 degrees Fahrenheit 2017-03-30 Heart Rate 86 bpm 2017-03-30 Respiratory Rate 20 2017-03-30 BMI 45.56 kg/m2 2017-03-30 Blood pressure systolic 138 mmHg 2017-03-30 Blood pressure diastolic 78 mmHg 2017-03-30 MEDICATIONS Medication Instructions Dosage Frequency Start Date End Date Duration Status Trazodone HCl 50 MG Orally Once a day 1 tablet at bedtime as needed 24h Active PredniSONE 20 mg Orally Once a day 1 tablet 24h Mar, Mar, 05 days Active Furosemide 40 mg Orally Once a day 1 tablet 24h Active Venlafaxine HCl 75MG Orally Once a day 1 tablet with food 24h Active Zofran ODT 4 MG Active Bentyl 10 mg Orally Four times a day 1 capsule 6h Nov, Active Gabapentin 300 MG Orally 3 times a day 8h Active Albuterol Sulfate 2.5 mg /3 mL (0.083 %) 1 Each by Inhalation route every 4 hours for cough and wheeze PRN for wheezing or cough Jul, Active Claritin 10 MG Orally Once a day 1 tablet 24h Active Ventolin HFA 90 mcg/actuation inhale 2-4 puff by Inhalation route as needed every 4 hours PRN for cough or wheeze Jul, Active Levothyroxine Sodium 25 MCG Orally Once a day 1 tablet on an empty stomach in the morning 24h 30 day(s) Active RESULTS Name Result Date Reference Range Xray : Knee, Left 3 views (IN HOUSE) 2017-03-30 PROCEDURES Procedure Date Ordered Result Body Site X-RAY EXAM OF KNEE, 3 Mar 30, 2017 INSTRUCTIONS MEDICATIONS ADMINISTERED No Known Medications [...]
--- OUTSIDE RECORDS SUMMARY | 2018-06-27 18:37 | XMS REPORT ---
Author Author ISAIAS MOSQUERANYA [facility] Address [address] [place] [address] Care Team Providers Care Physician Office Assistant Name Role Phone DEMETRI JASON Unavailable PROBLEMS Type Condition ICD9-CM Code [id number] Code Onset Dates Condition Status SNOMED Code Problem Primary insomnia F51.01 Active 0228516 Problem Renal insufficiency N28.9 Active 981689635 Problem Moderate episode of recurrent major depressive disorder F33.1 Active 61153007 Problem Other chronic pain G89.29 Active 59575887 Problem Acquired hypothyroidism E03.9 Active 883618393 Problem Chronic pain syndrome G89.4 Active 359514121 Problem Difficulty concentrating R41.840 Active 05929831 Problem Fatigue, unspecified type R53.83 Active 40771829 Problem ADHD, predominantly inattentive type F90.0 Active 89740222 Problem Benign essential hypertension I10 Active 1798701 Problem Allergic rhinitis, unspecified allergic rhinitis type J30.9 Active 38985820 Problem Positive urine drug screen R82.5 Active 924479883 Problem Other hyperlipidemia E78.4 Active 74593391 Problem Postablative hypothyroidism E89.0 Active 214415832 Problem Uncomplicated asthma, unspecified asthma severity J45.909 Active 675460542 Problem Major depressive disorder, single episode, unspecified F32.9 Active 00231611 Problem Anxiety F41.9 Active 23799608 Problem Lumbar degenerative disc disease M51.36 Active 74249655 ALLERGIES No Information ENCOUNTERS Encounter Location Date Diagnosis [facility] [place] [address] [facility] [id number], [place] [address] Jan, [facility] [place] [address] [id number], [place] [address] Dec, [facility] [place] [address] [facility] [id number], [place] [address] Nov, Edema, unspecified type R60.9 [facility] [place] [address] [place] [address]5845[address] 9679 Nov, Postablative hypothyroidism E89.0 [facility] [place] [address] [place] [address] 93001- 1291 Nov, [facility] [place] [id number] [place] [address] 89579- 4128 Nov, Generalized abdominal pain R10.84 ; History of abdominal hernia Z87.19 ; Pain of left calf M79.662 and BMI 45.0-49.9, adult Z68.42 [place] [id number] [place] [address] 10336- 4055 Sep, [facility] [place] [id number] [place] [address] 64528- 4220 Sep, [place] [id number] [place] [address] 94644- 6658 Sep, Postablative hypothyroidism E89.0 ; Pain in left knee M25.562 ; Edema, unspecified type R60.9 ; Multiple joint pain M25.50 and BMI 45.0-49.9, adult Z68.42 [facility] [place] [address] [place] [address] 13927- 5862 Aug, [facility] [id number] [place] [address] Jul, History of swelling of feet Z87.39 [facility] [place] [address] [place] [address] 11165- 4089 Jul, [facility] [id number] [place] [address] 83719 -3137 Jul, Pain in left knee M25.562 ; Other chronic pain G89.29 and BMI 45.0-49.9, adult Z68.42 [place] [id number] [place] [address] 19899- 3504 Jun, [facility] [place] [address], [place] [address] Jun, [facility] [place] [id number] [place] [address] 81170- 8699 May, Primary insomnia F51.01 [facility] [place] [id number] [place] [address] 90144- 0715 Apr, [facility] [place] [id number] [place] [address] 36448- 1833 Apr, [facility] [place] [id number] [place] [address] 77882- 6026 Apr, Acute pain of left knee M25.562 ; Renal insufficiency N28.9 ; Fatigue, unspecified type R53.83 ; Postablative hypothyroidism E89.0 and BMI 40.0-44.9, adult Z68.41 [place] [id number] [place] [address] 17201- 5362 Mar, Acute pain of left knee M25.562 [facility] [place] [id number] [place] [address] 51919- 2247 Feb, Renal insufficiency N28.9 [facility] [place] [id number] [place] [address] 67961- 1756 Feb, [place] [address] [place] [address] 26480- 4966 Feb, [facility] [place] [id number] [place] [address] 40555- 0141 Feb, [place] [id number] [place] [address] 09783- 1910 Feb, Renal insufficiency N28.9 ; ADHD, predominantly inattentive type F90.0 ; Postablative hypothyroidism E89.0 ; Primary insomnia F51.01 ; Difficulty concentrating R41.840 ; History of swelling of feet Z87.39 ; Chronic pain syndrome G89.4 and Moderate episode of recurrent major depressive disorder F33.1 [facility] [place] [address] [address] Feb, [facility] [place] [id number] [place] [address] 54093- 6560 Feb, [facility] [place] [id number] [place] [address] 50524- 0489 Jan, ADHD, predominantly inattentive type F90.0 [facility] [place] [id number] [place] [address] 03156- 4412 Jan, Renal insufficiency N28.9 ; Postablative hypothyroidism E89.0 and History of swelling of feet Z87.39 [facility] [place] [id number] [place] [address] 45307- 5055 Jan, Chronic pain syndrome G89.4 [facility] [place] [id number] [place] [address] 06176- 4339 Jan, [facility] [place] [id number] [place] [address] 64941- 4487 Jan, Renal insufficiency N28.9 ; Primary insomnia F51.01 ; Difficulty concentrating R41.840 ; Postablative hypothyroidism E89.0 ; History of swelling of feet Z87.39 ; Chronic pain syndrome G89.4 and Moderate episode of recurrent major depressive disorder F33.1 [facility] [place] [address] [place] [address] 85100- 4431 Jan, [facility] [id number] [place] [address] 92280 -8453 Jan, Candidal dermatitis B37.2 [facility] [place] [address] [place] [address] 51648- 9574 Dec, [facility] [id number] [place] [address] Dec, [facility] [place] [address] [place] [address] 07981- 7277 Dec, [facility] [place] [address], [place] [address] Dec, Stool color black K92.1 [place] [id number] [place] [address] 85664- 5818 Dec, Diarrhea of presumed infectious origin A09 [place] [id number] [place] [address] 99203- 5536 Dec, Right lower quadrant abdominal pain R10.31 and Stool color black K92.1 [facility] [id number] [place] [address] Nov, [place] [id number] [place] [address] 88443- 5802 Nov, Visit for TB skin test Z11.1 and Pre-employment examination Z02.1 [place] [id number] [place] [address] 64015- 9790 03 Nov, 2016 [facility] [id number] [place] [address] October, [facility] [id number] [place] [address] October, [facility] [id number] [place] [address] Aug, [facility] [id number] [place] [address] Aug, Other fatigue R53.83 ; BMI 45.0-49.9, adult Z68.42 ; Edema, unspecified type R60.9 ; Benign essential hypertension I10 and Lumbar degenerative disc disease M51.36 [facility] [id number] [place] [address] Aug, Skin tag L91.8 [facility] [id number] [place] [address] Aug, Abnormal laboratory test result R89.9 [facility] [address] [id number], [place] [address] Jul, Insomnia, unspecified type G47.00 [facility] [id number] [place] [address] 20 Jul, 2016 Benign essential hypertension I10 ; BMI 45.0-49.9, adult Z68.42 ; Lumbar degenerative disc disease M51.36 ; Edema, unspecified type R60.9 ; Other fatigue R53.83 and Hypothyroidism, unspecified type E03.9 [facility] [id number] [place] [address] Jul, [facility] [id number] [place] [address] Jul, Benign essential hypertension I10 ; BMI 45.0-49.9, adult Z68.42 ; Lumbar degenerative disc disease M51.36 ; Edema, unspecified type R60.9 ; Other fatigue R53.83 and Hypothyroidism, unspecified type E03.9 [facility] [id number] [place] [address] Jun, [facility] [id number] [place] [address] Jun, [facility] [id number] [place] [address] Jun, Benign essential hypertension I10 ; Hypothyroidism, unspecified type E03.9 ; Other fatigue R53.83 ; Midline low back pain without sciatica, unspecified chronicity M54.5 and BMI 45.0-49.9, adult Z68.[address] [id number] Jun, Postablative hypothyroidism E89.0 ; Rhinopharyngitis J00 and Encounter for immunization Z23 [address] [id number] Jun, [facility] [address] [facility] [id number] [id number] May, [facility] [address] [id number], [place] [address] May, [facility] [address] [id number] [id number] May, [facility] [id number], [place] [id number] Apr, Hypothyroidism, unspecified type E03.9 [facility] [id number][place] [id number] Apr, Hypothyroidism, unspecified type E03.9 [facility] [address] [id number][place] [id number] Apr, [facility] [id number][place] [address] Mar, Hypothyroidism, unspecified type E03.9 ; Moderate single current episode of major depressive disorder F32.1 ; Other hyperlipidemia E78.4 and Elevated liver function tests R79.89 [facility] [address] [facility] [id number] [place] [id number] Feb, [facility] [address] [facility] [id number][place] [id number] Dec, Moderate single current episode of major depressive disorder F32.1 [facility] [address] [id number][place] [phone] Nov, [facility] [address] [id number][place] [id number] Nov, [facility] [address] [id number][place] [id number] Nov, Hypothyroidism, unspecified type E03.9 ; Other hyperlipidemia E78.4 and Elevated liver function tests R79.89 [facility] [id number] [id number] 15 Nov, 2015 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 ; Hypothyroidism, unspecified type E03.9 ; Benign essential hypertension I10 and Uncomplicated asthma, unspecified asthma severity J45.909 [address] [place] [address] [place] [address] [id number] Nov, 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 ; Hypothyroidism, unspecified type E03.9 ; Benign essential hypertension I10 and Uncomplicated asthma, unspecified asthma severity J45.909 [address] [place] [place] [address] [id number] October, [place] [address] [place] [address] [id number] October, [place] [address] [place] [address] [id number] October, Abnormal laboratory test result R89.9 [place] [address] [place] [address] [id number] October, Status post bilateral oophorectomy Z90.722 [place] [address] [place] [address] [id number] Sep, [place] [address] [place] [address] [id number] Aug, [place] [address] [place] [address] [id number] Aug, Complex ovarian cyst N83.20 [place] [address] [place] [address] [id number] Aug, Other acute sinusitis, recurrence not specified J01.80 [place] [address] [place] [address] [id number] Aug, [facility] [place] [address] 31289- [address]99 Jun, [facility] [address] [place]005[place] [id number] Jun, [place] [address] [place] [address] [id number] May, Allergic rhinitis, unspecified allergic rhinitis type J30.9 [facility] [place] [id number] [place] [address] 87678- 2863 May, [place] [id number] [place] [address] [id number] Mar, [place] [address] [place] [address] [id number] Mar, [place] [address] [place] [address] [id number] Jan, Hypothyroidism 244.9 and Cyst in hand 727.43 [place] [address] [place] [address] [id number] Jan, [place] [address] [place] [address] [id number] Dec, [place] [address] [place] [address] [id number] Dec, Acute sinusitis 461.9 and Cough 786.2 [place] [address] [place] [address] [id number] Dec, Insect bite 919.4 [place] [address] [address] Nov, [place] [address] [place] [address] [id number] Nov, [place] [address] [place] [address] [id number] Sep, Obesity, morbid 278.01 ; Sleep apnea, obstructive 327.23 and Fatigue due to sleep pattern disturbance 780.79 [place] [address] [facility] [id number], [place] [address]- [address]2 14 Sep, 2014 [facility] [address] [facility] [id number], [place] [address]- 6050 Sep, [facility] [address] [id number], [place] [id number] Aug, [facility] [address] [facility] [id number][place] [address]- 7853 Aug, [facility] [id number] [place] [address] [id number] Jul, [facility] [address] [facility] [id number], [place] [address]- 1503 Jul, [facility] [address] [id number] 4[address] Jul, [facility] [id number] [place] [address] [id number] Jul, [facility] [id number] [place] [address] [id number] Jun, [facility] [address] [id number], [place] [address]- 7233 Jun, [facility] [id number], [place] [id number] May, [facility] [address] [facility] [id number], [place] [address]- 9259 May, [facility] [address] [facility] [id number], [place] [address]- 2339 Mar, [facility] [address] [facility] [id number], [place] [address]- 4111 Mar, [facility] [address] [facility] [id number], [place] [address]- 1217 Mar, [facility] [id number], [place] [id number] Mar, [facility] [place] [address] [id number], [place] [address]- 2836 Mar, [facility] [place] [address] [id number], [place] [address]- 2546 Mar, [facility] [place] [address] [id number], [place] [address] 2546 Mar, [place] [id number], [place] [id number] Mar, [facility] [place] [address] [id number] [address]- 4896 Mar, [place] [id number], [place] [id number] Mar, [facility] [place] [address] [id number], [place] [address]- 4676 Mar, IMMUNIZATIONS No Known Immunizations SOCIAL HISTORY Never Assessed REASON FOR VISIT Requests return call PLAN OF CARE VITAL SIGNS MEDICATIONS Medication Instructions Dosage Frequency Start Date End Date Duration Status Levothyroxine Sodium 25 MCG Orally Once a day 1 tablet on an empty stomach in the morning 24h 30 Active Gabapentin 300 MG Orally 3 times a day 1 capsule 8h 28 Active RESULTS No Results PROCEDURES No Known [...]
--- OUTSIDE RECORDS SUMMARY | 2018-06-27 18:38 | XMS REPORT ---
Author Author JUVE MARCUS Organization [facility] Address [address] [address] Care Team Providers Care Machine Cloth Examiner Name Role Phone JUVE MARCUS Unavailable PROBLEMS Type Condition ICD9-CM Code [id number] Code Onset Dates Condition Status SNOMED Code Problem Postablative hypothyroidism E89.0 Active 864687402 Problem Lumbar degenerative disc disease M51.36 Active 60673339 Problem Major depressive disorder, single episode, unspecified F32.9 Active 18615255 Problem ADHD, predominantly inattentive type F90.0 Active 50392764 Problem Primary insomnia F51.01 Active 0144041 Problem Difficulty concentrating R41.840 Active 72582927 Problem Moderate episode of recurrent major depressive disorder F33.1 Active 29138271 Problem Chronic pain syndrome G89.4 Active 560970413 Problem Renal insufficiency N28.9 Active 168760667 Problem Allergic rhinitis, unspecified allergic rhinitis type J30.9 Active 92105693 Problem Uncomplicated asthma, unspecified asthma severity J45.909 Active 525456603 Problem Positive urine drug screen R82.5 Active 370126102 Problem Anxiety F41.9 Active 32876540 Problem Benign essential hypertension I10 Active 6364301 Problem Other hyperlipidemia E78.4 Active 81535271 ALLERGIES Substance Reaction Event Type Date Status Tetracycline HCl nausea Drug Allergy Jul, Active Sulfamethoxazole-Trimethoprim hives Drug Allergy Jul, Active SOCIAL HISTORY Never Assessed PLAN OF CARE Activity Details Follow Up 4 Weeks Reason:HTN VITAL SIGNS Height 67.5 in 2016 Weight 299 lbs 2016 Temperature 98.6 degrees Fahrenheit 2016 Heart Rate 90 bpm 2016 Respiratory Rate 16 2016 BMI 46.13 kg/m2 2016 Blood pressure systolic 130 mmHg 2016 Blood pressure diastolic 78 122 mmHg 2016 MEDICATIONS Medication Instructions Dosage Frequency Start Date End Date Duration Status Ventolin HFA 90 mcg/actuation inhale 2-4 puff by Inhalation route as needed every 4 hours PRN for cough or wheeze Jul, Active Pravastatin Sodium 40 mg Orally Once a day 1 tablet 24h Nov, Active Nebulizer 2 times per day PRN for SOB; Needed for lifetime Jul, Active Flonase 50 MCG/ACT Nasally Once a day 1 spray in each nostril 24h May, Active Bentyl 10 mg Orally Four times a day 1 capsule 6h Nov, Active Sudafed 30 MG Orally 3 times a day 1 tablet as needed 8h Jun, 10 days Active Trazodone HCl 150 MG Orally Once a day 1 tablet at bedtime as needed 24h Active Alprazolam 0.5 mg take 1 tablet by Oral route 1 time per day Mar, Active Gabapentin 100 MG Orally 3 times a day as directed 8h May, Active Venlafaxine HCl 75 MG 1 tablet with food twice a day Orally Active Venlafaxine HCl 75MG Orally Once a day 1 tablet with food 24h 30 Active Albuterol Sulfate 2.5 mg /3 mL (0.083 %) 1 Each by Inhalation route every 4 hours for cough and wheeze PRN for wheezing or cough Jul, Active Furosemide 40 mg Orally Once a day 1 tablet 24h Jul, 30 day(s) Active Flonase Allergy Relief 50 MCG/ACT Nasally Once a day 1 spray in each nostril 24h Jun, 30 day(s) Active Spironolactone 50 mg Orally Twice a day 1 tablet 12h Aug, 30 day(s) Active Diclofenac Potassium 50 mg Orally Twice a day 1 tablet 12h 30 day(s) Active RESULTS No Results PROCEDURES Procedure Date Ordered Result Body Site ASSAY THYROID STIM HORMONE 2016 COMPREHEN METABOLIC PANEL 2016 THER/PROPH/DIAG INJ, SC/IM 2016 TORADOL (IM) 60 MG/2ML (UP TO 15 MG) 2016 VENIPUNCT, ROUTINE* 2016 IMMUNIZATIONS Vaccine Route Administration Date Status TORADOL (IM) 60 MG/2ML (UP TO 15 MG) IM Intramuscular 2016 Administered MEDICAL (GENERAL) HISTORY Type Description Date Medical [...]
--- OUTSIDE RECORDS SUMMARY | 2018-06-27 18:38 | XMS REPORT ---
Author Author JAN Gottlieb Organization [facility] Address [address] [address] Care Team Providers Care Rn Wound Name Role Phone JAN Gottlieb Unavailable PROBLEMS Type Condition ICD9-CM Code NJR55-US Code Onset Dates Condition Status SNOMED Code Problem Postablative hypothyroidism E89.0 Active 157627589 Problem Lumbar degenerative disc disease M51.36 Active 08718935 Problem Major depressive disorder, single episode, unspecified F32.9 Active 95126865 Problem ADHD, predominantly inattentive type F90.0 Active 65433960 Problem Primary insomnia F51.01 Active 9920494 Problem Difficulty concentrating R41.840 Active 98700808 Problem Moderate episode of recurrent major depressive disorder F33.1 Active 13291615 Problem Chronic pain syndrome G89.4 Active 604333125 Problem Renal insufficiency N28.9 Active 834098835 Problem Allergic rhinitis, unspecified allergic rhinitis type J30.9 Active 95194415 Problem Uncomplicated asthma, unspecified asthma severity J45.909 Active 478764356 Problem Anxiety F41.9 Active 82578657 Problem Benign essential hypertension I10 Active 5815718 Problem Other hyperlipidemia E78.4 Active 15305050 ALLERGIES Substance Reaction Event Type Date Status Tetracycline HCl nausea Drug Allergy Jun, Active Sulfamethoxazole-Trimethoprim hives Drug Allergy Jun, Active SOCIAL HISTORY No smoking Hx information available PLAN OF CARE Activity Details Follow Up As scheduled for [facility], PRN for this acute issue Reason: VITAL SIGNS Height 67.5 in 2016-07-01 Weight 297.6 lbs 2016-07-01 Temperature 97.6 degrees Fahrenheit 2016-07-01 Heart Rate 94 bpm 2016-07-01 Respiratory Rate 20 2016-07-01 BMI 45.92 kg/m2 2016-07-01 Blood pressure systolic 122 mmHg 2016-07-01 Blood pressure diastolic 78 mmHg 2016-07-01 MEDICATIONS Medication Instructions Dosage Frequency Start Date End Date Duration Status Venlafaxine HCl 75 MG 1 tablet with food twice a day Orally Active Bentyl 10 mg Orally Four times a day 1 capsule 6h 08 Nov, 2015 Active Pravastatin Sodium 40 mg Orally Once a day 1 tablet 24h 17 Nov, 2015 Active Flonase 50 MCG/ACT Nasally Once a day 1 spray in each nostril 24h May, Active Flonase Allergy Relief 50 MCG/ACT Nasally Once a day 1 spray in each nostril 24h Jun, 30 day(s) Active Nebulizer 2 times per day PRN for SOB; Needed for lifetime Jul, Active Sudafed 30 MG Orally 3 times a day 1 tablet as needed 8h Jun, 10 days Active Albuterol Sulfate 2.5 mg /3 mL (0.083 %) 1 Each by Inhalation route every 4 hours for cough and wheeze PRN for wheezing or cough Jul, Active Alprazolam 0.5 mg take 1 tablet by Oral route 1 time per day Mar, Active Ventolin HFA 90 mcg/actuation inhale 2-4 puff by Inhalation route as needed every 4 hours PRN for cough or wheeze Jul, Active Amlodipine Besylate 5 MG TAKE 1 TABLET (5 MG) BY MOUTH ONCE DAILY 30 Active Gabapentin 100 MG Orally 3 times a day as directed 8h May, Active RESULTS Name Result Date Reference Range TSH W/ FREE T4 2016-07-01 TSH 1.620 0.450-4.500 T4,Free(Direct) 0.89 0.82-1.77 T3 FREE 2016-07-01 T3, Free, Dialysis, LC/MS-MS 2.33 PROCEDURES Procedure Date Ordered Related Diagnosis Body Site ROUTINE VENIPUNCTURE 2016-07-01 N/A ASSAY THYROID STIM HORMONE Jul 01, 2016 Office Visit, Est Pt., Level 3 Jul 01, 2016 FREE ASSAY (FT-3) Jul 01, 2016 ASSAY OF FREE THYROXINE Jul 01, 2016 SINGLE IMMUNIZATION ADMIN Jul 01, 2016 FLUARIX QUAD P-FREE 3 AND UP .50 2015Jul 01, 2016 IMMUNIZATIONS Vaccine Route Administration Date Status FLUARIX QUAD P-FREE 3 AND UP .50 2015 IM Intramuscular Jul 01, 2016 Administered
--- OUTSIDE RECORDS SUMMARY | 2018-06-27 18:38 | XMS REPORT ---
Author Author JUVE MARCUS Organization [facility] Address [address] [place] [address] Care Team Providers Care Technology Education Instructor Name Role Phone JUVE MARCUS Unavailable PROBLEMS Type Condition ICD9-CM Code FWU19-SW Code Onset Dates Condition Status SNOMED Code Problem Primary insomnia F51.01 Active 7045128 Problem Renal insufficiency N28.9 Active 057830275 Problem Moderate episode of recurrent major depressive disorder F33.1 Active 23198983 Problem Other chronic pain G89.29 Active 40558069 Problem Acquired hypothyroidism E03.9 Active 371666856 Problem Chronic pain syndrome G89.4 Active 313963303 Problem Difficulty concentrating R41.840 Active 56663420 Problem Fatigue, unspecified type R53.83 Active 72450723 Problem ADHD, predominantly inattentive type F90.0 Active 92340047 Problem Benign essential hypertension I10 Active 3994956 Problem Allergic rhinitis, unspecified allergic rhinitis type J30.9 Active 66946678 Problem Positive urine drug screen R82.5 Active 023700058 Problem Other hyperlipidemia E78.4 Active 51792625 Problem Postablative hypothyroidism E89.0 Active 224441192 Problem Uncomplicated asthma, unspecified asthma severity J45.909 Active 085045674 Problem Major depressive disorder, single episode, unspecified F32.9 Active 89710555 Problem Anxiety F41.9 Active 55357131 Problem Lumbar degenerative disc disease M51.36 Active 60734071 ALLERGIES No Information ENCOUNTERS Encounter Location Date Diagnosis [facility] [address] [facility] [id number] [address] Aug, [facility] [address] [id number] [address] 12 Jul, 2017 History of swelling of feet Z87.39 [facility] [address] [id number] [address] Jul, [facility] [address] [place] [address] Jul, Pain in left knee M25.562 ; Other chronic pain G89.29 and BMI 45.0-49.9, adult Z68.42 [facility] [id number] [place] [address] Jun, [facility] [address] [address] Jun, [facility] [id number] [place] [address] May, Primary insomnia F51.01 [facility] [address] [address] Apr, [facility] [id number] [place] [address] 20042[address] Apr, [facility] [id number] [place] [address] Apr, Acute pain of left knee M25.562 ; Renal insufficiency N28.9 ; Fatigue, unspecified type R53.83 ; Postablative hypothyroidism E89.0 and BMI 40.0-44.9, adult Z68.41 [facility] [id number] [place] [address] 25303- [address] Mar, Acute pain of left knee M25.562 [facility] [id number] [place] [address] 93127- 3464 Feb, Renal insufficiency N28.9 [facility] [id number] [place] [address] Feb, [facility] [id number] [place] [address] 25428- 9[address] Feb, [facility] [id number] [place] [address] 68516- 0561 Feb, [place] [id number] [place] [address] 1932 Feb, Renal insufficiency N28.9 ; ADHD, predominantly inattentive type F90.0 ; Postablative hypothyroidism E89.0 ; Primary insomnia F51.01 ; Difficulty concentrating R41.840 ; History of swelling of feet Z87.39 ; Chronic pain syndrome G89.4 and Moderate episode of recurrent major depressive disorder F33.1 [facility] [id number] [place] [address] 85640- 7378 Feb, [facility] [id number] [place] [address] 11960- 8745 Feb, [facility] [address] [address] Jan, ADHD, predominantly inattentive type F90.0 [place] [id number] [place] [address]24- 8118 Jan, Renal insufficiency N28.9 ; Postablative hypothyroidism E89.0 and History of swelling of feet Z87.39 [place] [id number] [place] [address] 8[address]13- 7[address] Jan, Chronic pain syndrome G89.4 [facility] [id number] [place] [address] 68285- 29[address] Jan, [facility] [id number] [place] [address] 24926- 3263 Jan, Renal insufficiency N28.9 ; Primary insomnia F51.01 ; Difficulty concentrating R41.840 ; Postablative hypothyroidism E89.0 ; History of swelling of feet Z87.39 ; Chronic pain syndrome G89.4 and Moderate episode of recurrent major depressive disorder F33.1 [facility] [id number] [place] [address] 27700- 0069 Jan, [facility] [id number] [place] [address] Jan, Candidal dermatitis B37.2 [facility] [address], [place] [address] Dec, [facility] [address] [place] [id number] [address] Dec, [facility] [address], [place] [address] Dec, [facility] [id number] [place] [address] 92636- 8[address] Dec, Stool color black K92.1 [facility] [id number] [place] [address] 21773- 4041 Dec, Diarrhea of presumed infectious origin A09 [facility] [address] [id number], [place] [address] Dec, Right lower quadrant abdominal pain R10.31 and Stool color black K92.1 [facility] [address] [id number], [place] [address] Nov, [facility] [id number] [place] [address] 18977- 0744 Nov, Visit for TB skin test Z11.1 and Pre-employment examination Z02.1 [place] [address], [place] [address] Nov, [facility] [id number], [place] [address] October, [facility] [id number], [place] [address] October, [facility] [address] [id number] [place] [address] Aug, [facility] [id number] [place] [address] Aug, Other fatigue R53.83 ; BMI 45.0-49.9, adult Z68.42 ; Edema, unspecified type R60.9 ; Benign essential hypertension I10 and Lumbar degenerative disc disease M51.36 [facility] [address] [id number] [place] [address] 08 Aug, 2016 Skin tag L91.8 [facility] [address] [id number] [place] [address] 06 Aug, 2016 Abnormal laboratory test result R89.9 [facility] [id number] [place] [address] Jul, Insomnia, unspecified type G47.00 [facility] [address] [address] Jul, Benign essential hypertension I10 ; BMI 45.0-49.9, adult Z68.42 ; Lumbar degenerative disc disease M51.36 ; Edema, unspecified type R60.9 ; Other fatigue R53.83 and Hypothyroidism, unspecified type E03.9 [facility] [id number] [place] [address] Jul, [facility] [address] [id number] [place] [address] Jul, Benign essential hypertension I10 ; BMI 45.0-49.9, adult Z68.42 ; Lumbar degenerative disc disease M51.36 ; Edema, unspecified type R60.9 ; Other fatigue R53.83 and Hypothyroidism, unspecified type E03.9 [facility] [id number] [place] [address] Jun, [facility] [id number] [place] [address] Jun, [facility] [id number] [place] [address] Jun, Benign essential hypertension I10 ; Hypothyroidism, unspecified type E03.9 ; Other fatigue R53.83 ; Midline low back pain without sciatica, unspecified chronicity M54.5 and BMI 45.0-49.9, adult Z68.42 [place] [address] [place] [address] [id number] Jun, Postablative hypothyroidism E89.0 ; Rhinopharyngitis J00 and Encounter for immunization Z23 [place] [address] [place] [id number] Jun, [address] [id number] May, [facility] [address] [address] May, [place] [address] [place] [id number] May, [place] [address] [place] [address] [id number] Apr, Hypothyroidism, unspecified type E03.9 [place] [address] [place] [address] [id number] Apr, Hypothyroidism, unspecified type E03.9 [place] [address] [place] [address] [id number] Apr, [place] [address] [place] [address] [id number] Mar, Hypothyroidism, unspecified type E03.9 ; Moderate single current episode of major depressive disorder F32.1 ; Other hyperlipidemia E78.4 and Elevated liver function tests R79.89 [facility] [id number] [id number] Feb, [place] [address] [place] [address] [id number] Dec, Moderate single current episode of major depressive disorder F32.1 [place] [address] [place] [address] [id number] Nov, [facility] [address] [id number] Nov, [facility] [address] [id number] [address] Nov, Hypothyroidism, unspecified type E03.9 ; Other hyperlipidemia E78.4 and Elevated liver function tests R79.89 [place] [address] [place] [address] [place] [address] [id number] Nov, 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 ; Hypothyroidism, unspecified type E03.9 ; Benign essential hypertension I10 and Uncomplicated asthma, unspecified asthma severity J45.909 [address] [place] [address] [id number] Nov, 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 ; Hypothyroidism, unspecified type E03.9 ; Benign essential hypertension I10 and Uncomplicated asthma, unspecified asthma severity J45.909 [place] [address] [place] [id number] October, [place] [address] [place] [address] [id number] October, [place] [address] [place] [address] [id number] October, Abnormal laboratory test result R89.9 [place] [address] [place] [address] [id number] October, Status post bilateral oophorectomy Z90.722 [place] [address]65[place] [id number] Sep, [place] [address] [place] [address] [id number] Aug, [place] [id number] Aug, Complex ovarian cyst N83.[address] [id number] Aug, Other acute sinusitis, recurrence not specified J01.80 [place] [address] [place] [address] [id number] Aug, [facility] [id number] [place] [address] 10010189- 6265 Jun, [place] [place] [address] [id number] Jun, [place] [address] [place] [address] [id number] May, Allergic rhinitis, unspecified allergic rhinitis type J30.9 [facility] [address] [place] [address] 405084- 4840 May, [place] [address] [place] [address] [id number] Mar, [place] [address] [place] [address] [id number] Mar, [place] [address] [place] [address] [id number] Jan, Hypothyroidism 244.9 and Cyst in hand 727.43 [place] [address] [place] [address] [id number] Jan, [place] [address] [place] [address] [id number] Dec, [place] [address] [place] [address] [id number] Dec, Acute sinusitis 461.9 and Cough 786.2 [place] [place] [address] [id number] Dec, Insect bite 919.4 [facility] [address] [place] [address] [id number] Nov, [facility] [id number] [id number] Nov, [facility] [address] [place] [id number] [place] [address] [id number] Sep, Obesity, morbid 278.01 ; Sleep apnea, obstructive 327.23 and Fatigue due to sleep pattern disturbance 780.79 [facility] [address] [address] Sep, [facility] [id number] [place] [address] 36736- 2546 Sep, [facility] [address] [place] [id number] [place] [address] [id number] Aug, [facility] [id number] [place] [address] 52853- 2546 Aug, [place] [address] [place] [address] [id number] Jul, [facility] [id number] [place] [address] 79845- 2546 Jul, [facility] [id number] [place] [address] 08021- 2546 Jul, [address]005[place] [id number] Jul, [place] [address] [place] [address] [id number] Jun, [facility] [address] [place] [address] 42846- 2546 Jun, [place] [address] [place] [address] [id number] May, [facility] [address], [place] [address] May, [facility] [address] [id number], [place] [address] Mar, [facility] [address], [place] [address]- [address] Mar, [facility] [address], [place] [address] Mar, [address] [id number] Mar, [facility] [address] [address] Mar, [facility] [id number] [place] [address] 69674- 7538 Mar, [facility] [id number] [place] [address] 95439- 8196 Mar, [place] [address] [place] [address] [id number] Mar, [facility] [address], [place] [address] Mar, [place] [address] [id number] Mar, [facility] [address], [place] [address] Mar, IMMUNIZATIONS No Known Immunizations SOCIAL HISTORY Never Assessed REASON FOR VISIT Refill request PLAN OF CARE VITAL SIGNS MEDICATIONS Medication Instructions Dosage Frequency Start Date End Date Duration Status Furosemide 40 mg Orally Once a day [...]
--- OUTSIDE RECORDS SUMMARY | 2018-06-27 18:38 | XMS REPORT ---
Author Author ISAIAS MOSQUERANYA [facility] Address [address] [place] [address] Care Team Providers Care Ultrasound Spec Name Role Phone DEMETRI JASON Unavailable PROBLEMS Type Condition ICD9-CM Code UMY95-GO Code Onset Dates Condition Status SNOMED Code Problem Primary insomnia F51.01 Active 1148438 Problem Renal insufficiency N28.9 Active 396439218 Problem Moderate episode of recurrent major depressive disorder F33.1 Active 82595685 Problem Other chronic pain G89.29 Active 55921744 Problem Acquired hypothyroidism E03.9 Active 871018842 Problem Chronic pain syndrome G89.4 Active 173913804 Problem Difficulty concentrating R41.840 Active 48616608 Problem Fatigue, unspecified type R53.83 Active 13944217 Problem ADHD, predominantly inattentive type F90.0 Active 72368141 Problem Benign essential hypertension I10 Active 8294743 Problem Allergic rhinitis, unspecified allergic rhinitis type J30.9 Active 97841447 Problem Positive urine drug screen R82.5 Active 604711415 Problem Other hyperlipidemia E78.4 Active 10602617 Problem Postablative hypothyroidism E89.0 Active 132434774 Problem Uncomplicated asthma, unspecified asthma severity J45.909 Active 824735830 Problem Major depressive disorder, single episode, unspecified F32.9 Active 04956737 Problem Anxiety F41.9 Active 70253657 Problem Lumbar degenerative disc disease M51.36 Active 80390413 ALLERGIES No Information ENCOUNTERS Encounter Location Date Diagnosis [facility] [address] [facility] [id number] [address] October, [facility] [id number] [address] Sep, [facility] [address] [id number] [address] Sep, [facility] [id number] [place] [address]- 1707 Sep, [facility] [id number] [place] [address] 35222- 9325 Sep, Postablative hypothyroidism E89.0 ; Pain in left knee M25.562 ; Edema, unspecified type R60.9 ; Multiple joint pain M25.50 and BMI 45.0-49.9, adult Z68.42 [facility] [id number] [place] [address] 75130- 4224 Aug, [facility] [address] [address] 12 Jul, 2017 History of swelling of feet Z87.39 [place] [id number] [place] [address] 16445- 9207 Jul, [facility] [id number] [place] [address]2334 Jul, Pain in left knee M25.562 ; Other chronic pain G89.29 and BMI 45.0-49.9, adult Z68.42 [place] [id number] [place] [address] 15528- 5658 Jun, [place] [id number] [place] [address] 61500- 2867 Jun, [place] [id number] [place] [address] 83150- 3588 May, Primary insomnia F51.01 [facility] [id number] [place] [address] 10631- 1455 Apr, [place] [id number] [place] [address] 73[address]- 3042 Apr, [facility] [id number] [place] [address] 57187- 8933 Apr, Acute pain of left knee M25.562 ; Renal insufficiency N28.9 ; Fatigue, unspecified type R53.83 ; Postablative hypothyroidism E89.0 and BMI 40.0-44.9, adult Z68.41 [place] [id number] [place] [address] 71090- 6483 Mar, Acute pain of left knee M25.562 [place] [id number] [place] [address] 56134- 0892 Feb, Renal insufficiency N28.9 [place] [id number] [place] [address] 77551- 2762 Feb, [place] [id number] [place] [address] 94305- 8552 Feb, [place] [id number] [place] [address] 85601- 3544 Feb, [place] [id number] [place] [address] 87389- 1000 Feb, Renal insufficiency N28.9 ; ADHD, predominantly inattentive type F90.0 ; Postablative hypothyroidism E89.0 ; Primary insomnia F51.01 ; Difficulty concentrating R41.840 ; History of swelling of feet Z87.39 ; Chronic pain syndrome G89.4 and Moderate episode of recurrent major depressive disorder F33.1 [place] [id number] [place] [address] 36479- 1005 Feb, [place] [id number] [place] [address] 81183- 9495 Feb, [place] [id number] [place] [address] 57998- 8222 Jan, ADHD, predominantly inattentive type F90.0 [place] [id number] [place] [address] 78352- 9489 Jan, Renal insufficiency N28.9 ; Postablative hypothyroidism E89.0 and History of swelling of feet Z87.39 [place] [id number] [place] [address] 12163- 2336 Jan, Chronic pain syndrome G89.4 [facility] [id number] [place] [address] 00741- 7361 Jan, [facility] [id number] [place] [address] 19551- 8148 Jan, Renal insufficiency N28.9 ; Primary insomnia F51.01 ; Difficulty concentrating R41.840 ; Postablative hypothyroidism E89.0 ; History of swelling of feet Z87.39 ; Chronic pain syndrome G89.4 and Moderate episode of recurrent major depressive disorder F33.1 [facility] [id number] [place] [address] 62096- 9240 Jan, [facility] [id number] [place] [address] 55172 [address]4744 Jan, Candidal dermatitis B37.2 [facility] [address] [address] Dec, [facility] [id number] [place] [address] Dec, [facility] [id number] [place] [address] 31143- 7312 Dec, [facility] [id number] [place] [address] 55275- 1295 Dec, Stool color black K92.1 [facility] [id number] [place] [address] 22987- 5853 Dec, Diarrhea of presumed infectious origin A09 [facility] [id number] [place] [address] 37634- 4579 Dec, Right lower quadrant abdominal pain R10.31 and Stool color black K92.1 [facility] [id number] [place] [address] Nov, [facility] [id number] [place] [address] 46613- 2607 Nov, Visit for TB skin test Z11.1 and Pre-employment examination Z02.1 [facility] [address], [place] [address] 03 Nov, 2016 [facility] [id number], [place] [address] October, [facility] [id number] [place] [address] October, [facility] [id number] [place] [address] Aug, [facility] [id number] [place] [address] Aug, Other fatigue R53.83 ; BMI 45.0-49.9, adult Z68.42 ; Edema, unspecified type R60.9 ; Benign essential hypertension I10 and Lumbar degenerative disc disease M51.36 [facility] [id number], [place] [address] 08 Aug, 2016 Skin tag L91.8 [facility] [id number] [place] [address] 06 Aug, 2016 Abnormal laboratory test result R89.9 [facility] [id number], [place] [address] Jul, Insomnia, unspecified type G47.00 [facility] [id number], [place] [address] 20 Jul, 2016 Benign essential hypertension I10 ; BMI 45.0-49.9, adult Z68.42 ; Lumbar degenerative disc disease M51.36 ; Edema, unspecified type R60.9 ; Other fatigue R53.83 and Hypothyroidism, unspecified type E03.9 [facility] [id number], [place] [address] 07 Jul, 2016 [facility] [id number], [place] [address] 06 Jul, 2016 Benign essential hypertension I10 ; BMI 45.0-49.9, adult Z68.42 ; Lumbar degenerative disc disease M51.36 ; Edema, unspecified type R60.9 ; Other fatigue R53.83 and Hypothyroidism, unspecified type E03.9 [facility] [address] [id number], [place] [address] Jun, [facility] [id number] [place] [address] Jun, [facility] [id number] [place] [address] Jun, Benign essential hypertension I10 ; Hypothyroidism, unspecified type E03.9 ; Other fatigue R53.83 ; Midline low back pain without sciatica, unspecified chronicity M54.5 and BMI 45.0-49.9, adult Z68.[address] [id number] Jun, Postablative hypothyroidism E89.0 ; Rhinopharyngitis J00 and Encounter for immunization Z23 [id number] [place] [address] [id number] Jun, [place] [id number] [place] [address] [id number] May, [facility] [id number], [place] [address] May, [place] [id number] [place] [address] [id number] May, [place] [id number] [place] [address] [id number] Apr, Hypothyroidism, unspecified type E03.9 [id number] [place] [address] [id number] Apr, Hypothyroidism, unspecified type E03.9 [facility] [address] [id number] [id number] Apr, [facility] [id number], [place] [id number] Mar, Hypothyroidism, unspecified type E03.9 ; Moderate single current episode of major depressive disorder F32.1 ; Other hyperlipidemia E78.4 and Elevated liver function tests R79.89 [facility] [address] [facility] [id number] [id number] Feb, [facility] [address]00565[place] [id number] Dec, Moderate single current episode of major depressive disorder F32.1 [facility] [id number], [place] [phone] Nov, [facility] [id number], [place] [id number] Nov, [facility] [address] [id number] [id number] Nov, Hypothyroidism, unspecified type E03.9 ; Other hyperlipidemia E78.4 and Elevated liver function tests R79.89 [facility] [address] [id number] [address] Nov, 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 ; Hypothyroidism, unspecified type E03.9 ; Benign essential hypertension I10 and Uncomplicated asthma, unspecified asthma severity J45.909 [address] [id number][place] [address] Nov, 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 ; Hypothyroidism, unspecified type E03.9 ; Benign essential hypertension I10 and Uncomplicated asthma, unspecified asthma severity J45.909 [facility] [address] [id number], [place] [id number] October, [facility] [id number], [place] [phone] October, [facility] [id number], [place] [id number] October, Abnormal laboratory test result R89.9 [facility] [id number] [place] [address] [id number] October, Status post bilateral oophorectomy Z90.722 [facility] [id number] [place] [address] [id number] Sep, [facility] [id number] [place] [address] [id number] Aug, [facility] [id number] [place] [address] [id number] Aug, Complex ovarian cyst N83.20 [id number] [place] [address] [id number] Aug, Other acute sinusitis, recurrence not specified J01.80 [facility] [id number] [place] [id number] Aug, [facility] [id number] [place] [address] 50591 2542 Jun, [id number] [place] [address] [id number] Jun, [facility] [address] [place] [id number] [place] [address] [id number] May, Allergic rhinitis, unspecified allergic rhinitis type J30.9 [facility] [id number] [place] [address] 850442- 5620 May, [facility] [id number] [place] [address] [id number] Mar, [facility] [address] [place] [id number] [place] [address] [id number] Mar, [address] [id number] [id number] Jan, Hypothyroidism 244.9 and Cyst in hand 727.43 [id number] [place] [address] [id number] Jan, [address] [id number] [place] [address] [id number] Dec, [place] [id number] [place] [address] [id number] Dec, Acute sinusitis 461.9 and Cough 786.[address] [id number] Dec, Insect bite 919.4 [address] [place] [address] [id number] Nov, [id number] [place] [address] [id number] Nov, [address] [place] [id number] [place] [address] [id number] Sep, Obesity, morbid 278.01 ; Sleep apnea, obstructive 327.23 and Fatigue due to sleep pattern disturbance 780.79 [id number] [place] [address] 34270- 6836 Sep, [facility] [address] [address]- 8115 Sep, [place] [id number] [place] [id number] Aug, [facility] [address] 45237- 8328 Aug, [place] [id number] [place] [id number] Jul, [facility] [address] 93092- 4501 Jul, [facility] [address] [facility] [id number], [place] [address]- [address]239 Jul, [facility] [address] [id number], [place] [id number] Jul, [facility] [address] [id number], [place] [phone] Jun, [facility] [address] [facility] [id number], [place] [address]- 5569 Jun, [facility] [address] [id number], [place] [id number] May, [facility] [address] [facility] [id number], [place] [address]- 7139 May, [facility] [address] [facility] [id number], [place] [address]- 3574 Mar, [facility] [address] [facility] [id number], [place] [address]- 8892 Mar, [facility] [address] [facility] [id number], [place] [address]- 59[address] Mar, [facility] [address] [id number] [id number] Mar, [facility] [address] [facility] [id number], [place] [address]- 1866 Mar, [facility] [address] [facility] [id number], [place] [address]- 4208 Mar, [facility] [address] [facility] [id number], [place]12767- 6884 Mar, [facility] [address] [id number], [place] [phone] Mar, [facility] [address] [facility] [id number], [place] [address]- 0814 Mar, [facility] [address] [facility] [id number] [place] [phone] Mar, [facility] [address] [facility] [id number] [place] [address]- 9154 Mar, IMMUNIZATIONS No Known Immunizations SOCIAL HISTORY Never Assessed REASON FOR VISIT Referral request PLAN OF CARE VITAL SIGNS MEDICATIONS Unknown [...]
--- OUTSIDE RECORDS SUMMARY | 2018-06-27 18:38 | XMS REPORT ---
Author Author JUVE MARCUS Organization [facility] Address [address] [address] Care Team Providers Care Product Test Specialist Name Role Phone JUVE MARCUS Unavailable PROBLEMS Type Condition ICD9-CM Code HXT35-UF Code Onset Dates Condition Status SNOMED Code Problem Postablative hypothyroidism E89.0 Active 683852262 Problem Lumbar degenerative disc disease M51.36 Active 13420337 Problem Major depressive disorder, single episode, unspecified F32.9 Active 77312639 Problem ADHD, predominantly inattentive type F90.0 Active 93974692 Problem Primary insomnia F51.01 Active 5545900 Problem Difficulty concentrating R41.840 Active 69017672 Problem Moderate episode of recurrent major depressive disorder F33.1 Active 05447349 Problem Chronic pain syndrome G89.4 Active 513466036 Problem Renal insufficiency N28.9 Active 902307470 Problem Allergic rhinitis, unspecified allergic rhinitis type J30.9 Active 76996901 Problem Uncomplicated asthma, unspecified asthma severity J45.909 Active 874919231 Problem Anxiety F41.9 Active 24618418 Problem Benign essential hypertension I10 Active 2048436 Problem Other hyperlipidemia E78.4 Active 40993605 ALLERGIES Unknown Allergies SOCIAL HISTORY No smoking Hx information available PLAN OF CARE VITAL SIGNS Height 67.5 in 2016-07-27 Blood pressure systolic 118 mmHg 2016-07-27 Blood pressure diastolic 64 mmHg 2016-07-27 MEDICATIONS Unknown Medications RESULTS No Results PROCEDURES No Known procedures IMMUNIZATIONS No Known Immunizations
--- OUTSIDE RECORDS SUMMARY | 2018-06-27 18:39 | XMS REPORT ---
Author Author KANDY FAUSTIN [facility] Address [address] [place] [address] Care Team Providers Care Route Sales Trainee Name Role Phone FAUSTINKANDY Unavailable PROBLEMS Type Condition ICD9-CM Code [id number] Code Onset Dates Condition Status SNOMED Code Problem Primary insomnia F51.01 Active 5940927 Problem Renal insufficiency N28.9 Active 658749605 Problem Moderate episode of recurrent major depressive disorder F33.1 Active 44036962 Problem Other chronic pain G89.29 Active 98002359 Problem Acquired hypothyroidism E03.9 Active 221024608 Problem Chronic pain syndrome G89.4 Active 035087236 Problem Difficulty concentrating R41.840 Active 47499016 Problem Fatigue, unspecified type R53.83 Active 42729242 Problem ADHD, predominantly inattentive type F90.0 Active 65096514 Problem Benign essential hypertension I10 Active 7589594 Problem Allergic rhinitis, unspecified allergic rhinitis type J30.9 Active 15871052 Problem Positive urine drug screen R82.5 Active 559632850 Problem Other hyperlipidemia E78.4 Active 93411533 Problem Postablative hypothyroidism E89.0 Active 406983668 Problem Uncomplicated asthma, unspecified asthma severity J45.909 Active 221407832 Problem Major depressive disorder, single episode, unspecified F32.9 Active 51275617 Problem Anxiety F41.9 Active 04694658 Problem Lumbar degenerative disc disease M51.36 Active 04401338 ALLERGIES No Information ENCOUNTERS Encounter Location Date Diagnosis [facility], [place] [address] [facility] [id number] [address] Jan, [facility], [place] [address] [id number] [address] Dec, [facility], [place] [address] [facility] [id number], [place] [address] Nov, Edema, unspecified type R60.9 [facility], [place] [address] [place] [address] Nov, Postablative hypothyroidism E89.0 [facility], [place] [id number] [place] [address] 79912- 9637 Nov, [facility], [place] [id number] [place] [address] 18737- 2445 Nov, Generalized abdominal pain R10.84 ; History of abdominal hernia Z87.19 ; Pain of left calf M79.662 and BMI 45.0-49.9, adult Z68.42 [facility], [place] [id number] [place] [address] 36450- 5363 Sep, [facility], [place] [id number] [place] [address] 66570- 1793 Sep, [facility], [place] [id number] [place] [address] 88313- 0222 Sep, Postablative hypothyroidism E89.0 ; Pain in left knee M25.562 ; Edema, unspecified type R60.9 ; Multiple joint pain M25.50 and BMI 45.0-49.9, adult Z68.42 [facility], [place] [address] [place] [address] 83761- 2912 Aug, [facility] [address] [place] [id number] [place] [address] 12 Jul, 2017 History of swelling of feet Z87.39 [facility], [place] [address] [place] [address] 21692- 2985 05 Jul, 2017 [facility] [address] [place] [address]98 [address]4707 Jul, Pain in left knee M25.562 ; Other chronic pain G89.29 and BMI 45.0-49.9, adult Z68.42 [facility], [place] [address] [place] [address] 22933- 2256 Jun, [place] [address] [place] [address] 59879- 2783 Jun, [place] [id number] [place] [address] 80564- 6790 May, Primary insomnia F51.01 [place] [id number] [place] [address] 33295- 4184 Apr, [place] [id number] [place] [address] 42381- 0695 Apr, [place] [id number] [place] [address] 12928- 5328 Apr, Acute pain of left knee M25.562 ; Renal insufficiency N28.9 ; Fatigue, unspecified type R53.83 ; Postablative hypothyroidism E89.0 and BMI 40.0-44.9, adult Z68.41 [place] [id number] [place] [address] 93189- 2452 Mar, Acute pain of left knee M25.562 [place] [id number] [place] [address] 28281- 3308 28 Feb, 2017 Renal insufficiency N28.9 [place] [id number] [place] [address] 41113- 3702 27 Feb, 2017 [place] [id number] [place] [address] 61134- 7444 Feb, [place] [id number] [place] [address] 10348- 4939 Feb, [place] [address] [place] [address] 24743- 3208 20 Feb, 2017 Renal insufficiency N28.9 ; ADHD, predominantly inattentive type F90.0 ; Postablative hypothyroidism E89.0 ; Primary insomnia F51.01 ; Difficulty concentrating R41.840 ; History of swelling of feet Z87.39 ; Chronic pain syndrome G89.4 and Moderate episode of recurrent major depressive disorder F33.1 [place] [address] [address] Feb, [facility], [place] [id number] [place] [address] 93007- 7905 Feb, [facility], [place] [id number] [place] [address] 27446- 7327 Jan, ADHD, predominantly inattentive type F90.0 [facility], [place] [id number] [place] [address] 85787- 9264 Jan, Renal insufficiency N28.9 ; Postablative hypothyroidism E89.0 and History of swelling of feet Z87.39 [facility], [place] [id number] [place] [address] 75011- 3024 Jan, Chronic pain syndrome G89.4 [place] [id number] [place] [address] 39446- 1681 Jan, [facility], [place] [id number] [place] [address] 33853- 2927 Jan, Renal insufficiency N28.9 ; Primary insomnia F51.01 ; Difficulty concentrating R41.840 ; Postablative hypothyroidism E89.0 ; History of swelling of feet Z87.39 ; Chronic pain syndrome G89.4 and Moderate episode of recurrent major depressive disorder F33.1 [facility], [place] [address] [place] [address] 02737- 5352 Jan, [facility] [id number] [place] [address] 39552 [address]4876 Jan, Candidal dermatitis B37.2 [facility], [place] [id number] [place] [address] 82368- 0762 Dec, [facility] [id number] [place] [address] Dec, [facility], [place] [address] [place] [address] 62711- 2468 Dec, [facility], [place] [address] [id number], [place] [address] 05 Dec, 2016 Stool color black K92.1 [place] [id number] [place] [address] 03339- 2223 05 Dec, 2016 Diarrhea of presumed infectious origin A09 [place] [id number] [place] [address] 82548- 7446 Dec, Right lower quadrant abdominal pain R10.31 and Stool color black K92.1 [facility] [id number] [place] [address] Nov, [place] [address] [address]2376- 6466 14 Nov, 2016 Visit for TB skin test Z11.1 and Pre-employment examination Z02.1 [place] [id number] [place] [address] 07929- 4154 03 Nov, 2016 [facility] [address] [address] October, [facility] [address] [address] October, [facility] [id number] [place] [address] Aug, [facility] [address] [address] Aug, Other fatigue R53.83 ; BMI 45.0-49.9, adult Z68.42 ; Edema, unspecified type R60.9 ; Benign essential hypertension I10 and Lumbar degenerative disc disease M51.36 [facility] [id number] [place] [address] Aug, Skin tag L91.8 [facility] [id number] [place] [address] Aug, Abnormal laboratory test result R89.9 [facility] [id number] [place] [address] 20 Jul, 2016 Insomnia, unspecified type G47.00 [facility] [id number] [place] [address] 20 Jul, 2016 Benign essential hypertension I10 ; BMI 45.0-49.9, adult Z68.42 ; Lumbar degenerative disc disease M51.36 ; Edema, unspecified type R60.9 ; Other fatigue R53.83 and Hypothyroidism, unspecified type E03.9 [facility] [id number] [place] [address] 07 Jul, 2016 [facility] [id number] [place] [address] 06 Jul, 2016 Benign essential hypertension I10 ; BMI 45.0-49.9, adult Z68.42 ; Lumbar degenerative disc disease M51.36 ; Edema, unspecified type R60.9 ; Other fatigue R53.83 and Hypothyroidism, unspecified type E03.9 [facility] [id number] [place] [address] Jun, [facility] [id number] [place] [address] Jun, [facility] [id number] [place] [address] Jun, Benign essential hypertension I10 ; Hypothyroidism, unspecified type E03.9 ; Other fatigue R53.83 ; Midline low back pain without sciatica, unspecified chronicity M54.5 and BMI 45.0-49.9, adult Z68.[address] [id number] Jun, Postablative hypothyroidism E89.0 ; Rhinopharyngitis J00 and Encounter for immunization Z23 [address] [id number] Jun, [facility] [address] [id number] [id number] May, [facility] [address] [facility] [address] [id number], [place] [address] May, [facility] [address] [id number] [id number] May, [facility] [address] [id number] [id number] Apr, Hypothyroidism, unspecified type E03.9 [facility] [address] [id number] [id number] Apr, Hypothyroidism, unspecified type E03.9 [facility] [address] [id number] [id number] Apr, [facility] [address] [id number] [id number] Mar, Hypothyroidism, unspecified type E03.9 ; Moderate single current episode of major depressive disorder F32.1 ; Other hyperlipidemia E78.4 and Elevated liver function tests R79.89 [facility] [address] [facility] [id number][place] [id number] Feb, [facility] [address] 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 ; Hypothyroidism, unspecified type E03.9 ; Benign essential hypertension I10 and Uncomplicated asthma, unspecified asthma severity J45.[address]1265[place] [id number] Nov, 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 ; Hypothyroidism, unspecified type E03.9 ; Benign essential hypertension I10 and Uncomplicated asthma, unspecified asthma severity J45.909 [facility] [address] [id number] [id number] October, [place] [address] [id number] [place] [address] [id number] October, [place] [id number] [place] [address] [id number] October, Abnormal laboratory test result R89.9 [facility] [address] [place] [id number] [place] [address] [id number] October, Status post bilateral oophorectomy Z90.[address] [place] [address] [id number] Sep, [id number] [id number] Aug, [facility] [address] [id number] [id number] Aug, Complex ovarian cyst N83.20 [id number] [place] [address] [id number] Aug, Other acute sinusitis, recurrence not specified J01.80 [facility] [address] [id number] [id number] Aug, [facility], [place] [address] [id number], [place] [address] Jun, [address]00565[place] [id number] Jun, [place] [id number] [place] [address] [id number] May, Allergic rhinitis, unspecified allergic rhinitis type J30.9 [place] [address] [id number] [address]48[address]- 2651 May, [place] [id number] [place] [address] [id number] Mar, [place] [address] [place] [address] [id number] Mar, [place] [address] [place] [address] [id number] Jan, Hypothyroidism 244.9 and Cyst in hand 727.[address] [place] [address] [address] [place] [address] [id number] Jan, [place] [address] [address] [place] [address] [id number] Dec, [place] [address] [place] [address] [id number] Dec, Acute sinusitis 461.9 and Cough 786.[address] [place] [address] [place] [address] [id number] Dec, Insect bite 919.4 [address]005[address] [address] Nov, [place] [address] [address] [place] [address] [id number] Nov, [place] [address] [place] [address] [id number] Sep, Obesity, morbid 278.01 ; Sleep apnea, obstructive 327.23 and Fatigue due to sleep pattern disturbance 780.79 [place] [address] [id number] [address]- [address] 14 Sep, 2014 [facility] [address] [facility] [id number], [place] [address]- [address] Sep, [facility] [id number], [place] [id number] Aug, [facility] [address] [facility] [id number], [place] [address]- 9669 Aug, [facility] [id number] [place] [address] [id number] Jul, [facility] [id number] [place] [address] 15140- 8511 Jul, [facility] [address] [id number] [address]- [address]13 Jul, [facility] [id number] [place] [address] [id number] Jul, [facility] [id number] [place] [address] [id number] Jun, [facility] [address] [id number], [place] [address]- 5[address] Jun, [facility] [id number] [place] [address] [id number] May, [facility] [address] [facility] [id number], [place] [address]- 3945 May, [facility] [address] [facility] [id number], [place] 2153[place]- 4267 Mar, [facility] [address] [facility] [id number], [place] 849033- 9946 Mar, [facility] [address] [id number] [address]644- 8353 Mar, [facility] [id number], [place] [id number] Mar, [facility] [place] [address] [facility] [id number], [place] [address]- 1651 Mar, [facility] [place] [address] [id number], [place] [address]- 9406 Mar, [facility] [place] [address] [id number], [place] [address]- 1487 Mar, [address]65100[place] [id number] Mar, [facility] [place] [address] [id number], [place] [address]- 4639 Mar, [facility] [address]00565100[place] [id number] Mar, [facility] [place] [address] [id number], [place] [address]- 8945 Mar, IMMUNIZATIONS No Known Immunizations SOCIAL HISTORY Never Assessed REASON FOR VISIT Refill - Furosemide PLAN OF CARE VITAL SIGNS MEDICATIONS Medication [...]
--- OUTSIDE RECORDS SUMMARY | 2018-06-27 18:39 | XMS REPORT ---
Author Author JUVE MARCUS Organization [facility] Address [address] [address] Care Team Providers Care Acute Care Assistant Name Role Phone JUVE MARCUS Unavailable PROBLEMS Type Condition ICD9-CM Code NPF57-RM Code Onset Dates Condition Status SNOMED Code Problem Lumbar degenerative disc disease M51.36 Active 85522213 Problem Renal insufficiency N28.9 Active 700803747 Problem Moderate episode of recurrent major depressive disorder F33.1 Active 07923927 Problem Acquired hypothyroidism E03.9 Active 873960478 Problem Fatigue, unspecified type R53.83 Active 27434551 Problem Chronic pain syndrome G89.4 Active 677231179 Problem Difficulty concentrating R41.840 Active 62944182 Problem ADHD, predominantly inattentive type F90.0 Active 45775734 Problem Primary insomnia F51.01 Active 0328238 Problem Positive urine drug screen R82.5 Active 131740354 Problem Benign essential hypertension I10 Active 9216643 Problem Anxiety F41.9 Active 23586744 Problem Other hyperlipidemia E78.4 Active 99174748 Problem Allergic rhinitis, unspecified allergic rhinitis type J30.9 Active 85656051 Problem Postablative hypothyroidism E89.0 Active 638322739 Problem Uncomplicated asthma, unspecified asthma severity J45.909 Active 439247898 Problem Major depressive disorder, single episode, unspecified F32.9 Active 69129184 ALLERGIES No Information SOCIAL HISTORY Never Assessed [...]
--- OUTSIDE RECORDS SUMMARY | 2018-06-27 18:39 | XMS REPORT ---
Author Author JUVE MARCUS Organization [facility] Address [address] [address] Care Team Providers Care Corporate Recycling Manager Name Role Phone JUVE MARCUS Unavailable PROBLEMS Type Condition ICD9-CM Code NVX70-FP Code Onset Dates Condition Status SNOMED Code Problem Postablative hypothyroidism E89.0 Active 071847783 Problem Lumbar degenerative disc disease M51.36 Active 09568407 Problem Major depressive disorder, single episode, unspecified F32.9 Active 16857275 Problem ADHD, predominantly inattentive type F90.0 Active 99705281 Problem Primary insomnia F51.01 Active 0079682 Problem Difficulty concentrating R41.840 Active 51725589 Problem Moderate episode of recurrent major depressive disorder F33.1 Active 10502024 Problem Chronic pain syndrome G89.4 Active 433967150 Problem Renal insufficiency N28.9 Active 431954040 Problem Allergic rhinitis, unspecified allergic rhinitis type J30.9 Active 43200829 Problem Uncomplicated asthma, unspecified asthma severity J45.909 Active 694324447 Problem Anxiety F41.9 Active 34752015 Problem Benign essential hypertension I10 Active 1485330 Problem Other hyperlipidemia E78.4 Active 80302768 ALLERGIES Substance Reaction Event Type Date Status Tetracycline HCl nausea Drug Allergy Jun, Active Sulfamethoxazole-Trimethoprim hives Drug Allergy Jun, Active SOCIAL HISTORY No smoking Hx information available PLAN OF CARE Activity Details Follow Up 1 month Reason:HTN/weight loss VITAL SIGNS Height 67.5 in 2016-07-20 Weight 299.7 lbs 2016-07-20 Temperature 98.2 degrees Fahrenheit 2016-07-20 Heart Rate 101 bpm 2016-07-20 Respiratory Rate 20 2016-07-20 BMI 46.24 kg/m2 2016-07-20 Blood pressure systolic 138 mmHg 2016-07-20 Blood pressure diastolic 98 mmHg 2016-07-20 MEDICATIONS Medication Instructions Dosage Frequency Start Date End Date Duration Status Ventolin HFA 90 mcg/actuation inhale 2-4 puff by Inhalation route as needed every 4 hours PRN for cough or wheeze Jul, Active Gabapentin 100 MG Orally 3 times a day as directed 8h May, Active Bentyl 10 mg Orally Four times a day 1 capsule 6h 08 Nov, 2015 Active Albuterol Sulfate 2.5 mg /3 mL (0.083 %) 1 Each by Inhalation route every 4 hours for cough and wheeze PRN for wheezing or cough Jul, Active Flonase 50 MCG/ACT Nasally Once a day 1 spray in each nostril 24h May, Active Flonase Allergy Relief 50 MCG/ACT Nasally Once a day 1 spray in each nostril 24h Jun, 30 day(s) Active Spironolactone 25 MG Orally Twice a day 1 tablet 12h Jun, Jul, 30 day(s) Active Nebulizer 2 times per day PRN for SOB; Needed for lifetime Jul, Active Pravastatin Sodium 40 mg Orally Once a day 1 tablet 24h Nov, Active Amlodipine Besylate 5 MG TAKE 1 TABLET (5 MG) BY MOUTH ONCE DAILY 30 Active Sudafed 30 MG Orally 3 times a day 1 tablet as needed 8h Jun, 10 days Active Alprazolam 0.5 mg take 1 tablet by Oral route 1 time per day Mar, Active Venlafaxine HCl 75 MG 1 tablet with food twice a day Orally Active Hydrochlorothiazide 25 MG Orally Once a day 1 tablet 24h Jun, Active RESULTS Name Result Date Reference Range MONO TEST (IN HOUSE) 2016-07-20 RESULTS neg Control pos Lot # [id number] Exp date 11/11 Xray : Spine, Lumbar 2-3 views (IN HOUSE) 2016-07-20 PROCEDURES Procedure Date Ordered Related Diagnosis Body Site X-RAY EXAM OF LOWER SPINE Jul 20, 2016 HETEROPHILE ANTIBODIES Jul 20, 2016 Office Visit, Est Pt., Level 4 Jul 20, 2016 IMMUNIZATIONS No Known Immunizations
--- OUTSIDE RECORDS SUMMARY | 2018-06-27 18:39 | XMS REPORT ---
Author Author JUVE MARCUS Organization [facility] Address [address] [address] Care Team Providers Care Amalgamator Name Role Phone JUVE MARCUS Unavailable PROBLEMS Type Condition ICD9-CM Code [id number] Code Onset Dates Condition Status SNOMED Code Problem Postablative hypothyroidism E89.0 Active 663483130 Problem Lumbar degenerative disc disease M51.36 Active 90034111 Problem Major depressive disorder, single episode, unspecified F32.9 Active 07235905 Problem ADHD, predominantly inattentive type F90.0 Active 60964056 Problem Primary insomnia F51.01 Active 0606614 Problem Difficulty concentrating R41.840 Active 41370127 Problem Moderate episode of recurrent major depressive disorder F33.1 Active 88383987 Problem Chronic pain syndrome G89.4 Active 934672378 Problem Renal insufficiency N28.9 Active 248655747 Problem Allergic rhinitis, unspecified allergic rhinitis type J30.9 Active 29102716 Problem Uncomplicated asthma, unspecified asthma severity J45.909 Active 711860165 Problem Positive urine drug screen R82.5 Active 007804170 Problem Anxiety F41.9 Active 66318778 Problem Benign essential hypertension I10 Active 0643154 Problem Other hyperlipidemia E78.4 Active 62910138 ALLERGIES Substance Reaction Event Type Date Status Tetracycline HCl nausea Drug Allergy Aug, Active Sulfamethoxazole-Trimethoprim hives Drug Allergy Aug, Active Lisinopril cough Drug Allergy Aug, Active SOCIAL HISTORY Never Assessed PLAN OF CARE Activity Details Follow Up schedule with Sandu for derm procedure; 1 month Reason:fatigue VITAL SIGNS Height 67.5 in 2016-09-03 Weight 296 lbs 2016-09-03 Temperature 97.8 degrees Fahrenheit 2016-09-03 Heart Rate 106 bpm 2016-09-03 Respiratory Rate 16 2016-09-03 BMI 45.67 kg/m2 2016-09-03 Blood pressure systolic 136 mmHg 2016-09-03 Blood pressure diastolic 78 mmHg 2016-09-03 MEDICATIONS Medication Instructions Dosage Frequency Start Date End Date Duration Status Albuterol Sulfate 2.5 mg /3 mL (0.083 %) 1 Each by Inhalation route every 4 hours for cough and wheeze PRN for wheezing or cough Jul, Active Pravastatin Sodium 40 mg Orally Once a day 1 tablet 24h 17 Nov, 2015 Active Nebulizer 2 times per day PRN for SOB; Needed for lifetime Jul, Active Alprazolam 0.5 mg take 1 tablet by Oral route 1 time per day Mar, Active Flonase Allergy Relief 50 MCG/ACT Nasally Once a day 1 spray in each nostril 24h Jun, 30 day(s) Active Venlafaxine HCl 75MG Orally Once a day 1 tablet with food 24h 30 Active Cyclobenzaprine HCl 10 MG Active Sudafed 30 MG Orally 3 times a day 1 tablet as needed 8h Jun, 10 days Active Vistaril 25 MG Orally at bedtime as needed 1 capsule Active Bentyl 10 mg Orally Four times a day 1 capsule 6h Nov, Active Furosemide 40 mg Orally Once a day 1 tablet 24h 30 day(s) Active Gabapentin 300 MG Orally 3 times a day 8h May, Active Ventolin HFA 90 mcg/actuation inhale 2-4 puff by Inhalation route as needed every 4 hours PRN for cough or wheeze Jul, Active Flonase 50 MCG/ACT Nasally Once a day 1 spray in each nostril 24h May, Active HydrOXYzine Pamoate 25 MG Active Spironolactone 50 mg Orally Twice a day 1 tablet 12h 30 day(s) Active Zofran ODT 4 MG Active RESULTS No Results PROCEDURES Procedure Date Ordered Result Body Site OXIMETRY-OVERNIGHT 2016-09-03 NOT PERFORMED/SEE INTERNAL NOTES IMMUNIZATIONS No Known Immunizations MEDICAL (GENERAL) HISTORY Type Description Date Medical History Insomnia Medical History Lump or mass in breast Medical History anxiety Medical History obesity Medical History Hypothyroidism Medical History hypertension Medical History asthma Medical History hernia Medical History depression [facility] Medical History Moderate [...]
--- OUTSIDE RECORDS SUMMARY | 2018-06-27 18:39 | XMS REPORT ---
Author Author JUVE MARCUS Organization [facility] Address [address] [address] Care Team Providers Care Hematology Specialist Name Role Phone JUVE MARCUS Unavailable PROBLEMS Type Condition ICD9-CM Code [id number] Code Onset Dates Condition Status SNOMED Code Problem Postablative hypothyroidism E89.0 Active 367581223 Problem Lumbar degenerative disc disease M51.36 Active 44720287 Problem Major depressive disorder, single episode, unspecified F32.9 Active 82719868 Problem ADHD, predominantly inattentive type F90.0 Active 45228715 Problem Primary insomnia F51.01 Active 4430394 Problem Difficulty concentrating R41.840 Active 52316815 Problem Moderate episode of recurrent major depressive disorder F33.1 Active 71311932 Problem Chronic pain syndrome G89.4 Active 033875366 Problem Renal insufficiency N28.9 Active 959649133 Problem Allergic rhinitis, unspecified allergic rhinitis type J30.9 Active 61621377 Problem Uncomplicated asthma, unspecified asthma severity J45.909 Active 075595392 Problem Positive urine drug screen R82.5 Active 133822582 Problem Anxiety F41.9 Active 97520911 Problem Benign essential hypertension I10 Active 9505761 Problem Other hyperlipidemia E78.4 Active 84434836 ALLERGIES No Information SOCIAL HISTORY Never Assessed [...]
--- OUTSIDE RECORDS SUMMARY | 2018-06-27 18:39 | XMS REPORT ---
Author Author JUVE MARCUS Organization [facility] Address [address] [address] Care Team Providers Care Adoption Agent Name Role Phone JUVE MARCUS Unavailable PROBLEMS Type Condition ICD9-CM Code [id number] Code Onset Dates Condition Status SNOMED Code Problem Postablative hypothyroidism E89.0 Active 203887734 Problem Lumbar degenerative disc disease M51.36 Active 09242835 Problem Major depressive disorder, single episode, unspecified F32.9 Active 23158683 Problem ADHD, predominantly inattentive type F90.0 Active 73461435 Problem Primary insomnia F51.01 Active 3018942 Problem Difficulty concentrating R41.840 Active 96577680 Problem Moderate episode of recurrent major depressive disorder F33.1 Active 63921734 Problem Chronic pain syndrome G89.4 Active 691022533 Problem Renal insufficiency N28.9 Active 377539423 Problem Allergic rhinitis, unspecified allergic rhinitis type J30.9 Active 39122429 Problem Uncomplicated asthma, unspecified asthma severity J45.909 Active 323540767 Problem Anxiety F41.9 Active 23467640 Problem Benign essential hypertension I10 Active 6510008 Problem Other hyperlipidemia E78.4 Active 66106895 ALLERGIES No Information SOCIAL HISTORY Never Assessed [...]
--- OUTSIDE RECORDS SUMMARY | 2018-06-27 18:39 | XMS REPORT ---
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 Name Role Phone JUVE MARCUS Unavailable PROBLEMS Type Condition ICD9-CM Code [id number] Code Onset Dates Condition Status SNOMED Code Problem Postablative hypothyroidism E89.0 Active 123391207 Problem Lumbar degenerative disc disease M51.36 Active 54262393 Problem Major depressive disorder, single episode, unspecified F32.9 Active 87387948 Problem ADHD, predominantly inattentive type F90.0 Active 62403910 Problem Primary insomnia F51.01 Active 8500252 Problem Difficulty concentrating R41.840 Active 42870372 Problem Moderate episode of recurrent major depressive disorder F33.1 Active 14437042 Problem Chronic pain syndrome G89.4 Active 590365041 Problem Renal insufficiency N28.9 Active 179062615 Problem Allergic rhinitis, unspecified allergic rhinitis type J30.9 Active 72248350 Problem Uncomplicated asthma, unspecified asthma severity J45.909 Active 998469165 Problem Anxiety F41.9 Active 87353342 Problem Benign essential hypertension I10 Active 0938321 Problem Other hyperlipidemia E78.4 Active 62069487 ALLERGIES No Information SOCIAL HISTORY Never Assessed [...]
--- OUTSIDE RECORDS SUMMARY | 2018-06-27 18:40 | XMS REPORT ---
Author Author JUVE MARCUS Organization [facility] Address [address] [address] Care Team Providers Care Vp [employer] Name Role Phone JUVE MARCUS Unavailable PROBLEMS Type Condition ICD9-CM Code [id number] Code Onset Dates Condition Status SNOMED Code Problem Postablative hypothyroidism E89.0 Active 961102046 Problem Lumbar degenerative disc disease M51.36 Active 97964602 Problem Major depressive disorder, single episode, unspecified F32.9 Active 58203262 Problem ADHD, predominantly inattentive type F90.0 Active 61755519 Problem Primary insomnia F51.01 Active 6632713 Problem Difficulty concentrating R41.840 Active 73208891 Problem Moderate episode of recurrent major depressive disorder F33.1 Active 84778158 Problem Chronic pain syndrome G89.4 Active 294573483 Problem Renal insufficiency N28.9 Active 430894770 Problem Allergic rhinitis, unspecified allergic rhinitis type J30.9 Active 01461656 Problem Uncomplicated asthma, unspecified asthma severity J45.909 Active 240030603 Problem Anxiety F41.9 Active 20574090 Problem Benign essential hypertension I10 Active 6129415 Problem Other hyperlipidemia E78.4 Active 48612288 ALLERGIES Substance Reaction Event Type Date Status Tetracycline HCl nausea Drug Allergy Jul, Active Sulfamethoxazole-Trimethoprim hives Drug Allergy Jul, Active SOCIAL HISTORY Never Assessed PLAN OF CARE Activity Details Follow Up 1 month CH Reason:HTN VITAL SIGNS Height 67.5 in 2016-08-03 Weight 300 lbs 2016-08-03 Temperature 98.2 degrees Fahrenheit 2016-08-03 Heart Rate 104 bpm 2016-08-03 Respiratory Rate 18 2016-08-03 BMI 46.29 kg/m2 2016-08-03 Blood pressure systolic 130 mmHg 2016-08-03 Blood pressure diastolic 80 mmHg 2016-08-03 MEDICATIONS Medication Instructions Dosage Frequency Start Date End Date Duration Status Alprazolam 0.5 mg take 1 tablet by Oral route 1 time per day Mar, Active Venlafaxine HCl 75 MG 1 tablet with food twice a day Orally Active Pravastatin Sodium 40 mg Orally Once a day 1 tablet 24h 17 Nov, 2015 Active Albuterol Sulfate 2.5 mg /3 mL (0.083 %) 1 Each by Inhalation route every 4 hours for cough and wheeze PRN for wheezing or cough Jul, Active Diclofenac Potassium 50 mg Orally Twice a day 1 tablet 12h Jul, Aug, 30 day(s) Active Ventolin HFA 90 mcg/actuation inhale 2-4 puff by Inhalation route as needed every 4 hours PRN for cough or wheeze Jul, Active Nebulizer 2 times per day PRN for SOB; Needed for lifetime Jul, Active Gabapentin 100 MG Orally 3 times a day as directed 8h May, Active Spironolactone 25 MG Orally Twice a day 1 tablet 12h 30 day(s) Active Trazodone HCl 150 MG Orally Once a day 1 tablet at bedtime as needed 24h Active Hydrochlorothiazide 25 MG Orally Once a day 2 tablet 24h Active Flonase Allergy Relief 50 MCG/ACT Nasally Once a day 1 spray in each nostril 24h Jun, 30 day(s) Active Bentyl 10 mg Orally Four times a day 1 capsule 6h 08 Nov, 2015 Active Sudafed 30 MG Orally 3 times a day 1 tablet as needed 8h Jun, 10 days Active Flonase 50 MCG/ACT Nasally Once a day 1 spray in each nostril 24h May, Active RESULTS No Results PROCEDURES Procedure Date Ordered Result Body Site COMPREHEN METABOLIC PANEL Aug 03, 2016 GLYCATED HEMOGLOBIN TEST Aug 03, 2016 VENIPUNCT, ROUTINE* Aug 03, 2016 COMPLETE CBC W/AUTO DIFF WBC Aug 03, 2016 THER/PROPH/DIAG INJ, SC/IM Aug 03, 2016 TORADOL (IM) 60 MG/2ML (UP TO 15 MG) Aug 03, 2016 IMMUNIZATIONS Vaccine Route Administration Date Status TORADOL (IM) 60 MG/2ML (UP TO 15 MG) IM Intramuscular Aug 03, 2016 Administered MEDICAL (GENERAL) HISTORY Type Description [...]
--- OUTSIDE RECORDS SUMMARY | 2018-06-27 18:40 | XMS REPORT ---
Author Author JUVE MARCUS Organization [facility] Address [address] [address] Care Team Providers Care Plater Supervisor Name Role Phone JUVE MARCUS Unavailable PROBLEMS Type Condition ICD9-CM Code IAM20-[id number] Code Onset Dates Condition Status SNOMED Code Problem Lumbar degenerative disc disease M51.36 Active 70872572 Problem Renal insufficiency N28.9 Active 886750460 Problem Moderate episode of recurrent major depressive disorder F33.1 Active 70605713 Problem Acquired hypothyroidism E03.9 Active 580315266 Problem Fatigue, unspecified type R53.83 Active 70078321 Problem Chronic pain syndrome G89.4 Active 500100412 Problem Difficulty concentrating R41.840 Active 23895410 Problem ADHD, predominantly inattentive type F90.0 Active 26300354 Problem Primary insomnia F51.01 Active 4147700 Problem Positive urine drug screen R82.5 Active 236665516 Problem Benign essential hypertension I10 Active 5198088 Problem Anxiety F41.9 Active 22949000 Problem Other hyperlipidemia E78.4 Active 49664222 Problem Allergic rhinitis, unspecified allergic rhinitis type J30.9 Active 44147195 Problem Postablative hypothyroidism E89.0 Active 070859420 Problem Uncomplicated asthma, unspecified asthma severity J45.909 Active 830712949 Problem Major depressive disorder, single episode, unspecified F32.9 Active 44180496 ALLERGIES No Information SOCIAL HISTORY Never Assessed PLAN OF CARE VITAL SIGNS MEDICATIONS Medication [...]
--- OUTSIDE RECORDS SUMMARY | 2018-06-27 18:40 | XMS REPORT ---
Author Author CHARLES BETANCUR [facility] Address [address] [place] [address] Care Team Providers Care Radiation Oncologist Name Role Phone CHARLES BETANCUR Unavailable PROBLEMS Type Condition ICD9-CM Code JDO50-ZN Code Onset Dates Condition Status SNOMED Code Problem Primary insomnia F51.01 Active 8019759 Problem Renal insufficiency N28.9 Active 450566333 Problem Moderate episode of recurrent major depressive disorder F33.1 Active 75099204 Problem Other chronic pain G89.29 Active 53107305 Problem Acquired hypothyroidism E03.9 Active 084217287 Problem Chronic pain syndrome G89.4 Active 961050965 Problem Difficulty concentrating R41.840 Active 32622862 Problem Fatigue, unspecified type R53.83 Active 06880377 Problem ADHD, predominantly inattentive type F90.0 Active 80646200 Problem Benign essential hypertension I10 Active 4910723 Problem Allergic rhinitis, unspecified allergic rhinitis type J30.9 Active 85933255 Problem Positive urine drug screen R82.5 Active 438984272 Problem Other hyperlipidemia E78.4 Active 70341774 Problem Postablative hypothyroidism E89.0 Active 462660899 Problem Uncomplicated asthma, unspecified asthma severity J45.909 Active 714671482 Problem Major depressive disorder, single episode, unspecified F32.9 Active 33291981 Problem Anxiety F41.9 Active 07949928 Problem Lumbar degenerative disc disease M51.36 Active 70602049 ALLERGIES Substance Reaction Event Type Date Status Compazine Unknown Drug Allergy Jul, Active Tetracycline HCl nausea Drug Allergy Jul, Active Sulfamethoxazole-Trimethoprim hives Drug Allergy Jul, Active Lisinopril cough Drug Allergy Jul, Active HydrOXYzine HCl Unknown Drug Allergy Jul, Active ENCOUNTERS Encounter Location Date Diagnosis [facility] [address] [facility] [id number] [place] [address] Jan, [facility] [address], [place] [address] Dec, [facility] [id number] [place] [address] 50484- 6089 Nov, Edema, unspecified type R60.9 [facility] [address] [place] [address] 73817- 5219 Nov, Postablative hypothyroidism E89.0 [facility] [id number] [place] [address] 29970- 1672 Nov, [facility] [address] [place] [address] 90101- 5969 Nov, Generalized abdominal pain R10.84 ; History of abdominal hernia Z87.19 ; Pain of left calf M79.662 and BMI 45.0-49.9, adult Z68.42 [place] [id number] [place] [address] 50825- 6938 Sep, [facility] [address] [place] [address] 64342- 6427 Sep, [place] [id number] [place] [address] 54439- 9656 Sep, Postablative hypothyroidism E89.0 ; Pain in left knee M25.562 ; Edema, unspecified type R60.9 ; Multiple joint pain M25.50 and BMI 45.0-49.9, adult Z68.42 [facility] [address], [place] [address] Aug, [facility] [id number] [address] Jul, History of swelling of feet Z87.39 [facility] [address], [place] [address] Jul, [facility] [address] [place] [address]52 -4129 Jul, Pain in left knee M25.562 ; Other chronic pain G89.29 and BMI 45.0-49.9, adult Z68.42 [facility] [id number] [place] [address] 19728- 3082 Jun, [facility] [id number] [place] [address] 07039- 9350 Jun, [facility] [address] [address] May, Primary insomnia F51.01 [facility] [address] [address]- [address] Apr, [place] [id number] [place] [address] 13021- 5673 Apr, [facility] [id number] [place] [address] 60180- 6584 Apr, Acute pain of left knee M25.562 ; Renal insufficiency N28.9 ; Fatigue, unspecified type R53.83 ; Postablative hypothyroidism E89.0 and BMI 40.0-44.9, adult Z68.41 [facility] [id number] [place] [address] 24628- 7720 Mar, Acute pain of left knee M25.562 [facility] [id number] [place] [address] 29257- 3283 Feb, Renal insufficiency N28.9 [facility] [id number] [place] [address] 63721- 6633 Feb, [facility] [id number] [place] [address] 31771- 6603 Feb, [facility] [id number] [place] [address] 49473- 0925 Feb, [facility] [id number] [place] [address] 62948- 3951 Feb, Renal insufficiency N28.9 ; ADHD, predominantly inattentive type F90.0 ; Postablative hypothyroidism E89.0 ; Primary insomnia F51.01 ; Difficulty concentrating R41.840 ; History of swelling of feet Z87.39 ; Chronic pain syndrome G89.4 and Moderate episode of recurrent major depressive disorder F33.1 [facility] [id number] [place] [address] 78284- 2879 Feb, [place] [address] 81694- 1100 Feb, [place] [id number] [place] [address] 56181- 4852 Jan, ADHD, predominantly inattentive type F90.0 [place] [address] 75156- 6244 Jan, Renal insufficiency N28.9 ; Postablative hypothyroidism E89.0 and History of swelling of feet Z87.39 [place] [id number] [place] [address] 32214- 8067 Jan, Chronic pain syndrome G89.4 [place] [id number] [place] [address] 11875- 0303 Jan, [place] [id number] [place] [address] 23961- 8644 Jan, Renal insufficiency N28.9 ; Primary insomnia F51.01 ; Difficulty concentrating R41.840 ; Postablative hypothyroidism E89.0 ; History of swelling of feet Z87.39 ; Chronic pain syndrome G89.4 and Moderate episode of recurrent major depressive disorder F33.1 [facility] [id number] [place] [address] 42983- 3596 Jan, [facility] [id number] [place] [address] 02544 -7673 Jan, Candidal dermatitis B37.2 [place] [id number] [place] [address] 47927- 3973 Dec, [facility] [id number] [address] 17 Dec, 2016 [facility] [id number] [place] [address] 20985- 2228 Dec, [facility] [id number] [place] [address] 18274- 0729 Dec, Stool color black K92.1 [facility] [id number] [place] [address] 37627- 7043 Dec, Diarrhea of presumed infectious origin A09 [place] [id number] [place] [address] 27725- 3381 Dec, Right lower quadrant abdominal pain R10.31 and Stool color black K92.1 [facility] [id number] [place] [address] Nov, [facility] [id number] [place] [address] 03964- 2468 Nov, Visit for TB skin test Z11.1 and Pre-employment examination Z02.1 [place] [id number] [place] [address] 98999- 3670 Nov, [facility] [id number] [place] [address] October, [facility] [id number] [place] [address] October, [facility] [id number] [place] [address] Aug, [facility] [id number] [place] [address] 09 Aug, 2016 Other fatigue R53.83 ; BMI 45.0-49.9, adult Z68.42 ; Edema, unspecified type R60.9 ; Benign essential hypertension I10 and Lumbar degenerative disc disease M51.36 [facility] [address] [place] [address] 08 Aug, 2016 Skin tag L91.8 [facility] [id number] [place] [address] Aug, Abnormal laboratory test result R89.9 [facility] [id number] [place] [address] 20 Jul, 2016 Insomnia, unspecified type G47.00 [facility] [address] [id number] [place] [address] Jul, Benign essential hypertension I10 ; BMI 45.0-49.9, adult Z68.42 ; Lumbar degenerative disc disease M51.36 ; Edema, unspecified type R60.9 ; Other fatigue R53.83 and Hypothyroidism, unspecified type E03.9 [facility] [id number] [place] [address] Jul, [facility] [address] [id number] [place] [address] Jul, Benign essential hypertension I10 ; BMI 45.0-49.9, adult Z68.42 ; Lumbar degenerative disc disease M51.36 ; Edema, unspecified type R60.9 ; Other fatigue R53.83 and Hypothyroidism, unspecified type E03.9 [facility] [id number], [place] [address] Jun, [facility] [id number], [place] [address] Jun, [facility] [id number] [place] [address] Jun, Benign essential hypertension I10 ; Hypothyroidism, unspecified type E03.9 ; Other fatigue R53.83 ; Midline low back pain without sciatica, unspecified chronicity M54.5 and BMI 45.0-49.9, adult Z68.42 [place] [address] [id number] Jun, Postablative hypothyroidism E89.0 ; Rhinopharyngitis J00 and Encounter for immunization Z23 [facility] [address] [id number] Jun, [facility] [id number] [id number] May, [facility] [address] [place] [address] [id number], [place] [address] May, [facility] [id number] [id number] May, [place] [id number] [place] [address] [id number] Apr, Hypothyroidism, unspecified type E03.9 [place] [id number] [id number] Apr, Hypothyroidism, unspecified type E03.9 [facility] [address] [id number] Apr, [place] [address] [id number] Mar, Hypothyroidism, unspecified type E03.9 ; Moderate single current episode of major depressive disorder F32.1 ; Other hyperlipidemia E78.4 and Elevated liver function tests R79.[address] [facility] [address] [id number] [id number] Feb, [facility] [address] [id number] Dec, Moderate single current episode of major depressive disorder F32.1 [facility] [address] [id number] Nov, [place] [address] [id number] Nov, [facility] [address] [id number] [id number] Nov, Hypothyroidism, unspecified type E03.9 ; Other hyperlipidemia E78.4 and Elevated liver function tests R79.89 [facility] [address] [id number] Nov, 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 ; Hypothyroidism, unspecified type E03.9 ; Benign essential hypertension I10 and Uncomplicated asthma, unspecified asthma severity J45.909 [place] [id number] [place] [address] [id number] Nov, 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 ; Hypothyroidism, unspecified type E03.9 ; Benign essential hypertension I10 and Uncomplicated asthma, unspecified asthma severity J45.909 [place] [address] [id number] October, [place] [address] [id number] October, [place] [id number] [place] [address] [id number] October, Abnormal laboratory test result R89.9 [place] [address] [id number] October, Status post bilateral oophorectomy Z90.722 [address] [address] Sep, [place] [id number] Aug, [place] [id number] [place] [address] [id number] Aug, Complex ovarian cyst N83.20 [place] [id number] Aug, Other acute sinusitis, recurrence not specified J01.80 [facility] [address] [id number] Aug, [place] [id number] [place] [address] 74275- 2546 Jun, [facility] [address] [place] [id number] [place] [address] [id number] Jun, [facility] [address] [place] [address] [id number] May, Allergic rhinitis, unspecified allergic rhinitis type J30.9 [place] [id number] [place] [address] 67160 2546 May, [place] [id number] [place] [address] [id number] Mar, [address] [id number] Mar, [facility] [address] [place] [id number] [place] [address] [id number] Jan, Hypothyroidism 244.9 and Cyst in hand 727.43 [place] [id number] [place] [address] [id number] Jan, [place] [id number] [place] [address] [id number] Dec, [place] [id number] [place] [address] [id number] Dec, Acute sinusitis 461.9 and Cough 786.2 [place] [id number] [place] [address] [id number] Dec, Insect bite 919.4 [facility] [address] [place] [address] [id number] Nov, [place] [id number] [place] [address] [id number] Nov, [facility] [id number] [id number] Sep, Obesity, morbid 278.01 ; Sleep apnea, obstructive 327.23 and Fatigue due to sleep pattern disturbance 780.79 [facility] [address], [place] [address]- 2546 Sep, [facility] [id number] [place] [address] 07341- 6196 Sep, [facility] [id number] [place] [address] [id number] Aug, [facility] [id number] [place] [address] 29512 2546 Aug, [place] [id number] [place] [address] [id number] Jul, [facility] [id number] [place] [address] 18615- 9526 Jul, [facility] [id number] [place] [address] 32549- 4646 Jul, [facility] [address] [place] [id number] [place] [address] [id number] Jul, [place] [id number] [place] [address] [id number] Jun, [facility] [id number] [place] [address] 30916- 0562 Jun, [place] [id number] [place] [address] [id number] May, [facility] [id number] [place] [address] 44240- 4086 May, [facility] [id number] [place] [address] 27564- 3086 Mar, [facility] [id number] [place] [address] 44111- 8934 Mar, [facility] [id number]- 6842 Mar, [facility] [id number] [id number] Mar, [facility] [address]- 9774 Mar, [facility] [address], [place] [address]- 9017 Mar, [facility] [address], [place]- 0305 Mar, [facility] [address] [id number] Mar, [facility] [address]- 5306 Mar, [facility] [address] [id number] Mar, [facility] [address] [address]- 2759 Mar, IMMUNIZATIONS No Known Immunizations SOCIAL HISTORY Never Assessed REASON FOR VISIT knee pain Pt c/o knee pain BILL Lanza PLAN OF CARE Activity Details Follow Up prn Reason: VITAL SIGNS Height 67.5 in 2017-08-02 Weight 307.4 lbs 2017-08-02 Temperature 98.2 degrees Fahrenheit 2017-08-02 Heart Rate 80 bpm 2017-08-02 Respiratory Rate 20 2017-08-02 BMI 47.43 kg/m2 2017-08-02 Blood pressure systolic 128 mmHg 2017-08-02 Blood pressure diastolic 84 mmHg 2017-08-02 MEDICATIONS Medication Instructions Dosage Frequency Start Date End Date Duration Status Ventolin HFA 90 mcg/actuation inhale 2-4 puff by Inhalation route as needed every 4 hours PRN for cough or wheeze Jul, Active Lidocaine HCl 3 % Externally Twice a day as directed 12Apr, Active Furosemide 40 mg Orally Once a day 1 tablet 24h Active Albuterol Sulfate 2.5 mg /3 mL (0.083 %) 1 Each by Inhalation route every 4 hours for cough and wheeze PRN for wheezing or cough Jul, Active Bentyl 10 mg Orally Four times a day 1 capsule 6h 08 Nov, 2015 Active Cyclobenzaprine HCl 10 mg Orally Three times a day 1 tablet as needed 8h Not-Taking CoQ-10 Not-Taking Knee Brace - Wear knee brace when up and about Apr, Active Claritin 10 MG Orally Once a day 1 tablet 24h Active Zofran ODT 4 MG Active Venlafaxine HCl 75 MG TAKE ONE TABLET BY MOUTH TWICE DAILY WITH FOOD 30 Active Trazodone HCl 50 MG Orally Once a day 1 tablet at bedtime as needed 24h Active Multivitamin Not-Taking Levothyroxine Sodium 25 MCG Orally Once [...]
--- OUTSIDE RECORDS SUMMARY | 2018-06-27 18:41 | XMS REPORT ---
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 Name Role Phone DEMETRI JASON Unavailable PROBLEMS Type Condition ICD9-CM Code [id number] Code Onset Dates Condition Status SNOMED Code Problem Primary insomnia F51.01 Active 2745950 Problem Renal insufficiency N28.9 Active 325521059 Problem Moderate episode of recurrent major depressive disorder F33.1 Active 97714223 Problem Other chronic pain G89.29 Active 95250938 Problem Acquired hypothyroidism E03.9 Active 948103427 Problem Chronic pain syndrome G89.4 Active 367164131 Problem Difficulty concentrating R41.840 Active 80856032 Problem Fatigue, unspecified type R53.83 Active 43542317 Problem ADHD, predominantly inattentive type F90.0 Active 68584965 Problem Benign essential hypertension I10 Active 6180775 Problem Allergic rhinitis, unspecified allergic rhinitis type J30.9 Active 48312609 Problem Positive urine drug screen R82.5 Active 086960130 Problem Other hyperlipidemia E78.4 Active 50900111 Problem Postablative hypothyroidism E89.0 Active 586453200 Problem Uncomplicated asthma, unspecified asthma severity J45.909 Active 944397365 Problem Major depressive disorder, single episode, unspecified F32.9 Active 58485563 Problem Anxiety F41.9 Active 05085982 Problem Lumbar degenerative disc disease M51.36 Active 96772309 ALLERGIES No Information ENCOUNTERS Encounter Location Date Diagnosis [facility] [address] [facility] [id number] [address] Sep, [facility] [address] [id number] [address] Sep, [facility] [address] [id number], [place] [address] Sep, [facility] [address] [place] [address]236[address] 7257 Sep, Postablative hypothyroidism E89.0 ; Pain in left knee M25.562 ; Edema, unspecified type R60.9 ; Multiple joint pain M25.50 and BMI 45.0-49.9, adult Z68.42 [facility] [id number] [place] [address] 26498- 6250 Aug, [facility] [address] [place] [id number] [place] [address] 12 Jul, 2017 History of swelling of feet Z87.39 [facility] [id number] [place] [address] 14769- 0696 05 Jul, 2017 [facility] [id number] [place] [address]207 [address] 05 Jul, 2017 Pain in left knee M25.562 ; Other chronic pain G89.29 and BMI 45.0-49.9, adult Z68.42 [facility] [id number] [place] [address] 42365- 1502 Jun, [facility] [id number] [place] [address] 79584- 7502 Jun, [facility] [id number] [place] [address] 63052- 2572 May, Primary insomnia F51.01 [facility] [id number] [place] [address] 27568- 6356 Apr, [facility] [id number] [place] [address] 76685- 4803 Apr, [facility] [id number] [place] [address] 26875- 8995 Apr, Acute pain of left knee M25.562 ; Renal insufficiency N28.9 ; Fatigue, unspecified type R53.83 ; Postablative hypothyroidism E89.0 and BMI 40.0-44.9, adult Z68.41 [facility] [address], [place] [address] 03 Mar, 2017 Acute pain of left knee M25.562 [facility] [address] [place] [address] 57382- 4881 28 Feb, 2017 Renal insufficiency N28.9 [facility] [id number] [place] [address] 63758- 0813 27 Feb, 2017 [facility] [id number] [place] [address] 76295- 6364 Feb, [facility] [id number] [place] [address] 23803- 4465 Feb, [facility] [id number] [place] [address] 90514- 3481 Feb, Renal insufficiency N28.9 ; ADHD, predominantly inattentive type F90.0 ; Postablative hypothyroidism E89.0 ; Primary insomnia F51.01 ; Difficulty concentrating R41.840 ; History of swelling of feet Z87.39 ; Chronic pain syndrome G89.4 and Moderate episode of recurrent major depressive disorder F33.1 [facility] [id number] [place] [address] 02160- 6066 11 Feb, 2017 [facility] [address] [place] [address] 57698- 4699 Feb, [facility] [id number] [place] [address] 64263- 0241 Jan, ADHD, predominantly inattentive type F90.0 [facility] [address] [place] [address] 38669- 2665 Jan, Renal insufficiency N28.9 ; Postablative hypothyroidism E89.0 and History of swelling of feet Z87.39 [facility] [address] [place] [address] 89963- 2699 Jan, Chronic pain syndrome G89.4 [facility] [id number] [place] [address] 57869- 9584 Jan, [facility] [id number] [place] [address] 14113- 0701 Jan, Renal insufficiency N28.9 ; Primary insomnia F51.01 ; Difficulty concentrating R41.840 ; Postablative hypothyroidism E89.0 ; History of swelling of feet Z87.39 ; Chronic pain syndrome G89.4 and Moderate episode of recurrent major depressive disorder F33.1 [facility] [id number] [place] [address] 41796- 2613 Jan, [facility] [id number] [place] [address] 56145 [address]2216 Jan, Candidal dermatitis B37.2 [facility] [id number] [place] [address] 19611- 8440 Dec, [facility] [id number] [place] [address] Dec, [facility] [id number] [place] [address] 34607- 7576 Dec, [place] [id number] [place] [address] 80963- 2867 Dec, Stool color black K92.1 [place] [id number] [place] [address] 10432- 4329 Dec, Diarrhea of presumed infectious origin A09 [facility] [id number] [place] [address] 62291- 6877 Dec, Right lower quadrant abdominal pain R10.31 and Stool color black K92.1 [facility] [id number] [place] [address] Nov, [facility] [id number] [place] [address] 76313- 4222 Nov, Visit for TB skin test Z11.1 and Pre-employment examination Z02.1 [place] [address] [address] [address] Nov, [facility] [address] [id number] [address] October, [facility] [address] [id number] [address] October, [facility] [address] [place] [id number] [place] [address] Aug, [facility] [address] [place] [id number] [place] [address] Aug, Other fatigue R53.83 ; BMI 45.0-49.9, adult Z68.42 ; Edema, unspecified type R60.9 ; Benign essential hypertension I10 and Lumbar degenerative disc disease M51.36 [facility] [address] [place] [id number] [place] [address] Aug, Skin tag L91.8 [facility] [address] [place] [id number] [place] [address] Aug, Abnormal laboratory test result R89.9 [facility] [address] [place], [place] [id number] [place] [address] Jul, Insomnia, unspecified type G47.00 [facility] [address] [place] [id number] [place] [address] Jul, Benign essential hypertension I10 ; BMI 45.0-49.9, adult Z68.42 ; Lumbar degenerative disc disease M51.36 ; Edema, unspecified type R60.9 ; Other fatigue R53.83 and Hypothyroidism, unspecified type E03.9 [facility] [address] [place], [place] [id number], [place] [address] 07 Jul, 2016 [facility] [address] [place] [id number] [place] [address] Jul, Benign essential hypertension I10 ; BMI 45.0-49.9, adult Z68.42 ; Lumbar degenerative disc disease M51.36 ; Edema, unspecified type R60.9 ; Other fatigue R53.83 and Hypothyroidism, unspecified type E03.9 [facility] [id number] [place] [address] Jun, [facility] [id number] [place] [address] Jun, [facility] [id number] [place] [address] Jun, Benign essential hypertension I10 ; Hypothyroidism, unspecified type E03.9 ; Other fatigue R53.83 ; Midline low back pain without sciatica, unspecified chronicity M54.5 and BMI 45.0-49.9, adult Z68.[address] [id number] Jun, Postablative hypothyroidism E89.0 ; Rhinopharyngitis J00 and Encounter for immunization Z23 [address] [id number] Jun, [address] [id number] May, [facility] [address] [id number] [address] May, [place] [id number] [place] [address] [id number] May, [id number] [place] [address] [phone] Apr, Hypothyroidism, unspecified type E03.9 [id number] [place] [address] [id number] Apr, Hypothyroidism, unspecified type E03.[address] [id number] Apr, [facility] [id number][place] [id number] Mar, Hypothyroidism, unspecified type E03.9 ; Moderate single current episode of major depressive disorder F32.1 ; Other hyperlipidemia E78.4 and Elevated liver function tests R79.89 [facility] [id number] [id number] Feb, [facility] [address] [id number] [id number] Dec, Moderate single current episode of major depressive disorder F32.1 [facility] [id number][place] [id number] Nov, [facility] [id number][place] [id number] Nov, [facility] [id number][place] [address] Nov, Hypothyroidism, unspecified type E03.9 ; Other hyperlipidemia E78.4 and Elevated liver function tests R79.89 [facility] [id number][place] [address] Nov, 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 ; Hypothyroidism, unspecified type E03.9 ; Benign essential hypertension I10 and Uncomplicated asthma, unspecified asthma severity J45.909 [facility] [id number][place] [id number] Nov, 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 ; Hypothyroidism, unspecified type E03.9 ; Benign essential hypertension I10 and Uncomplicated asthma, unspecified asthma severity J45.909 [facility] [id number], [place] [address] October, [facility] [id number][place] [address] October, [facility] [id number] [place] [address] [id number] October, Abnormal laboratory test result R89.9 [id number] [place] [address] [id number] October, Status post bilateral oophorectomy Z90.722 [address] [place] [address] [id number] Sep, [address] [id number] Aug, [address] [id number] Aug, Complex ovarian cyst N83.[address] [id number] Aug, Other acute sinusitis, recurrence not specified J01.[address] [id number] Aug, [facility] [address] [address]642023- 2839 Jun, [address] [id number] [place] [address] [id number] Jun, [id number] [place] [address] [phone] May, Allergic rhinitis, unspecified allergic rhinitis type J30.9 [facility] [address] 31443119- 7582 May, [address] [place] [id number] [place] [address] [id number] Mar, [address] [id number] Mar, [address] [place] [address] [place] [address] [id number] Jan, Hypothyroidism 244.9 and Cyst in hand 727.43 [facility] [address] [address] Jan, [address] [place] [address] [id number] Dec, [address] [place] [address] [place] [address] [id number] Dec, Acute sinusitis 461.9 and Cough 786.2 [address] [place] [address] [id number] Dec, Insect bite 919.4 [place] [address] [place] [address] [id number] Nov, [address] [place] [address] [id number] Nov, [address] [place] [address] [place] [address] [id number] Sep, Obesity, morbid 278.01 ; Sleep apnea, obstructive 327.23 and Fatigue due to sleep pattern disturbance 780.[address] [address]- 4956 Sep, [facility] [id number] [place] [address] 85708- 4844 Sep, [address] [place] [address] [place] [address] [id number] Aug, [facility] [id number] [place] [address] 55131- 5946 Aug, [address] [place] [id number] [place] [address] [id number] Jul, [facility] [address] 820212- 1625 Jul, [facility] [address] 680324- 6979 Jul, [facility] [address] [id number] [id number] Jul, [facility] [address] [id number] [id number] Jun, [facility] [address] [facility] [id number], [place] [address]- 8888 Jun, [facility] [id number] [place] [address] [id number] May, [facility] [address] [facility] [id number], [place] [address]- 1367 May, [facility] [id number] [place] [address] 35991- 7215 Mar, [facility] [id number] [place] [address] 509049- 7399 Mar, [facility] [address] [facility] [id number], [place] [address]- 0086 Mar, [facility] [id number] [place] [address] [id number] Mar, [facility] [address] [facility] [id number], [place] [address]- 5741 Mar, [facility] [id number], [place] [address]- 8509 Mar, [facility] [address] [facility] [id number], [place] [address]- 7772 Mar, [facility] [address] [id number] [id number] Mar, [facility] [address] [facility] [id number], [place] [address]- 3744 Mar, [facility] [id number], [place] [id number] Mar, [facility] [address] [facility] [id number] [place] [address]- 4769 Mar, IMMUNIZATIONS No Known Immunizations SOCIAL HISTORY Never Assessed REASON FOR VISIT Deferred Lab Order/Requests Return Call PLAN OF CARE VITAL SIGNS MEDICATIONS Medication Instructions Dosage Frequency Start Date End Date Duration Status Furosemide 40 mg Orally Once a day 1 tablet 24h Active Levothyroxine Sodium 25 MCG Orally Once a day 1 tablet on an empty stomach in the morning 24h Jan, 30 day(s) Active Gabapentin 300 MG Orally in the morning, 1 cap at noon and 2 cap at hs 1 capsule May, Active RESULTS No Results PROCEDURES No [...]
--- OUTSIDE RECORDS SUMMARY | 2018-06-27 18:41 | XMS REPORT ---
Author Author YUEDARRYLSHALONDA Organization [facility] Address [address] [place] [address] Care Team Providers Care Teaching Associate Name Role Phone TURNERSHALONDA Beard Unavailable PROBLEMS Type Condition ICD9-CM Code WBY86-NG Code Onset Dates Condition Status SNOMED Code Problem Primary insomnia F51.01 Active 7265190 Problem Renal insufficiency N28.9 Active 916189324 Problem Moderate episode of recurrent major depressive disorder F33.1 Active 74792282 Problem Other chronic pain G89.29 Active 54078875 Problem Acquired hypothyroidism E03.9 Active 933657105 Problem Chronic pain syndrome G89.4 Active 378929556 Problem Difficulty concentrating R41.840 Active 66131544 Problem Fatigue, unspecified type R53.83 Active 36483206 Problem ADHD, predominantly inattentive type F90.0 Active 16774238 Problem Benign essential hypertension I10 Active 4456096 Problem Allergic rhinitis, unspecified allergic rhinitis type J30.9 Active 78260253 Problem Positive urine drug screen R82.5 Active 567535537 Problem Other hyperlipidemia E78.4 Active 45988674 Problem Postablative hypothyroidism E89.0 Active 657251464 Problem Uncomplicated asthma, unspecified asthma severity J45.909 Active 856607219 Problem Major depressive disorder, single episode, unspecified F32.9 Active 39265704 Problem Anxiety F41.9 Active 83047620 Problem Lumbar degenerative disc disease M51.36 Active 84297492 ALLERGIES No Information ENCOUNTERS Encounter Location Date Diagnosis [facility] [address] [facility] [id number], [place] [address] Sep, [facility] [address] [id number] [address] Aug, [facility] [address] [id number] [address] 12 Jul, 2017 History of swelling of feet Z87.39 [facility] [id number] [place] [address] Jul, [facility] [id number] [place] [address] Jul, Pain in left knee M25.562 ; Other chronic pain G89.29 and BMI 45.0-49.9, adult Z68.42 [facility] [address] [address] Jun, [facility] [address] [address] Jun, [place] [address] [address] May, Primary insomnia F51.01 [place] [address] [address] Apr, [facility] [id number] [place] [address] Apr, [place] [id number] [place] [address] Apr, Acute pain of left knee M25.562 ; Renal insufficiency N28.9 ; Fatigue, unspecified type R53.83 ; Postablative hypothyroidism E89.0 and BMI 40.0-44.9, adult Z68.41 [facility] [id number] [place] [address]2414- [address] Mar, Acute pain of left knee M25.562 [facility] [id number] [place] [address] 83642- 0[address] Feb, Renal insufficiency N28.9 [facility] [id number] [place] [address] Feb, [facility] [id number] [place] [address]36- 3867 Feb, [place] [address] [address] Feb, [facility] [id number] [place] [address] 17377- 39[address] Feb, Renal insufficiency N28.9 ; ADHD, predominantly inattentive type F90.0 ; Postablative hypothyroidism E89.0 ; Primary insomnia F51.01 ; Difficulty concentrating R41.840 ; History of swelling of feet Z87.39 ; Chronic pain syndrome G89.4 and Moderate episode of recurrent major depressive disorder F33.1 [facility] [address] [place] [address]- [address] Feb, [place] [id number] [place] [address]- [address] Feb, [place] [id number] [place] [address]61- 75[address] Jan, ADHD, predominantly inattentive type F90.0 [place] [id number] [place] [address]97- 7835 Jan, Renal insufficiency N28.9 ; Postablative hypothyroidism E89.0 and History of swelling of feet Z87.39 [place] [id number] [place] [address] 21537- 8876 Jan, Chronic pain syndrome G89.4 [place] [address] [place] [address] 52481- 9641 Jan, [facility] [id number] [place] [address]58- 1330 Jan, Renal insufficiency N28.9 ; Primary insomnia F51.01 ; Difficulty concentrating R41.840 ; Postablative hypothyroidism E89.0 ; History of swelling of feet Z87.39 ; Chronic pain syndrome G89.4 and Moderate episode of recurrent major depressive disorder F33.1 [facility] [address] [address] Jan, [facility] [address]100[place], [place] [address] Jan, Candidal dermatitis B37.2 [facility] [address]100[place], [place] [address] Dec, [facility] [id number] [address] Dec, [facility] [id number] [place] [address] 47875- 9925 Dec, [facility] [address] [id number], [place] [address] Dec, Stool color black K92.1 [facility] [address]65100[place], [place] [address] Dec, Diarrhea of presumed infectious origin A09 [facility] [address] [place] [address]19- 285[address] Dec, Right lower quadrant abdominal pain R10.31 and Stool color black K92.1 [facility] [address]88F12435364AT[place] [address] Nov, [facility] [address], [place] [address] Nov, Visit for TB skin test Z11.1 and Pre-employment examination Z02.1 [facility] [address]100[place], [place] [address] Nov, [facility] [id number] [address] October, [facility] [address]395F24027337QNBUCK [place] [address] October, [facility] [id number] [place] [address] Aug, [facility] [id number] [place] [address] Aug, Other fatigue R53.83 ; BMI 45.0-49.9, adult Z68.42 ; Edema, unspecified type R60.9 ; Benign essential hypertension I10 and Lumbar degenerative disc disease M51.36 [facility] [address] [place] [id number] [place] [address] 08 Aug, 2016 Skin tag L91.8 [facility] [address] [address] Aug, Abnormal laboratory test result R89.9 [facility] [address] [place] [id number] [place] [address] Jul, Insomnia, unspecified type G47.00 [facility] [address] [place] [id number] [place] [address] Jul, Benign essential hypertension I10 ; BMI 45.0-49.9, adult Z68.42 ; Lumbar degenerative disc disease M51.36 ; Edema, unspecified type R60.9 ; Other fatigue R53.83 and Hypothyroidism, unspecified type E03.9 [facility] [address] [place] [id number] [place] [address] Jul, [facility] [address] [place] [id number] [place] [address] Jul, Benign essential hypertension I10 ; BMI 45.0-49.9, adult Z68.42 ; Lumbar degenerative disc disease M51.36 ; Edema, unspecified type R60.9 ; Other fatigue R53.83 and Hypothyroidism, unspecified type E03.9 [facility] [address] [place] [id number] [place] [address] Jun, [facility] [address] [place] [id number] [place] [address] Jun, [facility] [address] [place] [id number] [place] [address] Jun, Benign essential hypertension I10 ; Hypothyroidism, unspecified type E03.9 ; Other fatigue R53.83 ; Midline low back pain without sciatica, unspecified chronicity M54.5 and BMI 45.0-49.9, adult Z68.42 [place] [id number] [place] [id number] Jun, Postablative hypothyroidism E89.0 ; Rhinopharyngitis J00 and Encounter for immunization Z23 [place] [id number] [place] [id number] Jun, [address] [id number] May, [facility] [address] [place] [address] May, [place] [id number] [place] [address] [id number] May, [place] [id number] [place] [id number] Apr, Hypothyroidism, unspecified type E03.9 [place] [id number] [place] [address] [id number] Apr, Hypothyroidism, unspecified type E03.[address] [place] [address] [id number] Apr, [place] [id number] [place] [address] [id number] Mar, Hypothyroidism, unspecified type E03.9 ; Moderate single current episode of major depressive disorder F32.1 ; Other hyperlipidemia E78.4 and Elevated liver function tests R79.89 [facility] [id number] [id number] Feb, [place] [id number] [place] [address] [id number] Dec, Moderate single current episode of major depressive disorder F32.1 [facility] [id number] [id number] Nov, [facility] [address] [id number] [id number] Nov, [facility] [address] [id number] [id number] Nov, Hypothyroidism, unspecified type E03.9 ; Other hyperlipidemia E78.4 and Elevated liver function tests R79.89 [facility] [address] [id number] [id number] Nov, 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 ; Hypothyroidism, unspecified type E03.9 ; Benign essential hypertension I10 and Uncomplicated asthma, unspecified asthma severity J45.909 [place] [address] [id number] [address] Nov, 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 ; Hypothyroidism, unspecified type E03.9 ; Benign essential hypertension I10 and Uncomplicated asthma, unspecified asthma severity J45.909 [facility] [id number] [place] [id number] October, [facility] [address] [id number] [id number] October, [place] [address]00565100[place] [id number] October, Abnormal laboratory test result R89.9 [facility] [address] [id number] [id number] October, Status post bilateral oophorectomy Z90.722 [facility] [address] [id number] [id number] Sep, [facility] [address]00565100[place] [id number] Aug, [facility] [id number] [place] [address] [id number] Aug, Complex ovarian cyst N83.20 [place] [id number] [place] [address] [id number] Aug, Other acute sinusitis, recurrence not specified J01.[address] [id number] Aug, [place] [address] [address] Jun, [address] [id number] Jun, [address] [id number] May, Allergic rhinitis, unspecified allergic rhinitis type J30.9 [place] [address] [address]314- [address] May, [place] [id number] [place] [address] [id number] Mar, [address] [id number] Mar, [address] [id number] Jan, Hypothyroidism 244.9 and Cyst in hand 727.43 [place] [id number] [place] [address] [phone] Jan, [place] [id number] [place] [phone] Dec, [address] [id number] Dec, Acute sinusitis 461.9 and Cough 786.[address] [id number] Dec, Insect bite 919.4 [facility] [address] [place] [id number] [id number] Nov, [facility] [address] [place] [id number] [place] [address] [id number] Nov, [facility] [address] [place] [id number] [place] [address] [id number] Sep, Obesity, morbid 278.01 ; Sleep apnea, obstructive 327.23 and Fatigue due to sleep pattern disturbance 780.79 [facility] [id number] [place] [address] 73023- 0206 Sep, [facility] [id number] [place] [address] 09257- 2546 Sep, [place] [id number] [place] [address] [id number] Aug, [facility] [id number] [place] [address] 25147- 2546 Aug, [place] [id number] [place] [address] [id number] Jul, [facility] [id number] [place] [address] 66843- 2546 Jul, [facility] [id number] [place] [address] 27737- 2546 Jul, [facility] [address] [place], [place] [id number] [place] [address] [id number] Jul, [address]00565100[place] [id number] Jun, [facility] [id number] [place] [address] 18748- 2546 Jun, [place] [id number] [id number] May, [facility] [address] [place], [place] [address] May, [facility] [address]00565100[place], [place] [address]- 7163 Mar, [facility] [address]00565100[place], [place] [address]- 6323 Mar, [facility] [address]00565100[place], [place] [address]- [address] Mar, [place] [id number] [place] [id number] Mar, [facility] [id number] [place] [address] 03695- 6074 Mar, [facility] [id number] [place] [address] 38888- 0046 Mar, [facility] [address] [id number], [place] [address]- 5613 Mar, [place] [id number] [place] [id number] Mar, [facility] [address]00565100[place], [place] [address] Mar, [address]00565100[place] [id number] Mar, [facility] [address]00565100[place], [place] [address] Mar, IMMUNIZATIONS No Known Immunizations SOCIAL HISTORY Never Assessed REASON FOR VISIT rash in the creases of her legs...been there for 3 weeks. reports it has gotten worse when she gets hot. reports the area white. shalom [place] pcp PLAN OF CARE Activity Details Follow Up prn Reason: VITAL SIGNS Height 67.5 in 2017-01-30 Weight 290.2 lbs 2017-01-30 Temperature 98.2 degrees Fahrenheit 2017-01-30 Heart Rate 84 bpm 2017-01-30 Respiratory Rate 20 2017-01-30 BMI 44.78 kg/m2 2017-01-30 Blood pressure systolic 118 mmHg 2017-01-30 Blood pressure diastolic 86 mmHg 2017-01-30 MEDICATIONS Medication Instructions Dosage Frequency Start Date End Date Duration Status Furosemide 40 mg Orally Once a day 1 tablet 24h Active Alprazolam 0.5 mg take 1 tablet by Oral route 1 time per day Mar, Active Bentyl 10 mg Orally Four times a day 1 capsule 6h Nov, Active Nebulizer 2 times per day PRN for SOB; Needed for lifetime Jul, Active Nystatin 217452 UNIT/GM Externally Twice a day apply thin layer to area in groin 12h Jan, Jan, 10 days Active Zofran ODT 4 MG Active Multivitamin Active Ventolin HFA 90 mcg/actuation inhale 2-4 puff by Inhalation route as needed every 4 hours PRN for cough or wheeze Jul, Active Albuterol Sulfate 2.5 mg /3 mL (0.083 %) 1 Each by Inhalation route every 4 hours for cough and wheeze PRN for wheezing or cough Jul, Active Cyclobenzaprine HCl 10 MG Active Spironolactone 50 mg 1 tablet Twice a day Orally 30 day(s) 30 Active Flonase 50 MCG/ACT Nasally Once a day 1 spray in each nostril 24h May, Active Claritin 10 MG Orally Once a day 1 tablet 24h Active Gabapentin 300 MG Orally 3 times a day 8h May, Active Sudafed 30 MG Orally 3 times a day 1 tablet as needed 8h Jun, 10 days Active CoQ-10 Active RESULTS No Results PROCEDURES No Known [...]
--- OUTSIDE RECORDS SUMMARY | 2018-06-27 18:41 | XMS REPORT ---
Author Author JASON MOSQUERA [facility] Address [address] [place] [address] Care Team Providers Care Laundry Housekeeping Aide Name Role Phone DEMETRI JASON Unavailable PROBLEMS Type Condition ICD9-CM Code CWA95-IB Code Onset Dates Condition Status SNOMED Code Problem Primary insomnia F51.01 Active 6342784 Problem Renal insufficiency N28.9 Active 026399772 Problem Moderate episode of recurrent major depressive disorder F33.1 Active 32831597 Problem Other chronic pain G89.29 Active 95110530 Problem Acquired hypothyroidism E03.9 Active 100322885 Problem Chronic pain syndrome G89.4 Active 701654411 Problem Difficulty concentrating R41.840 Active 97868062 Problem Fatigue, unspecified type R53.83 Active 29868967 Problem ADHD, predominantly inattentive type F90.0 Active 72749793 Problem Benign essential hypertension I10 Active 9584257 Problem Allergic rhinitis, unspecified allergic rhinitis type J30.9 Active 83521714 Problem Positive urine drug screen R82.5 Active 380807372 Problem Other hyperlipidemia E78.4 Active 18410211 Problem Postablative hypothyroidism E89.0 Active 707272015 Problem Uncomplicated asthma, unspecified asthma severity J45.909 Active 174031425 Problem Major depressive disorder, single episode, unspecified F32.9 Active 87591482 Problem Anxiety F41.9 Active 24096153 Problem Lumbar degenerative disc disease M51.36 Active 35482501 ALLERGIES Substance Reaction Event Type Date Status Compazine Unknown Drug Allergy Jan, Active Tetracycline HCl nausea Drug Allergy Jan, Active Sulfamethoxazole-Trimethoprim hives Drug Allergy Jan, Active Lisinopril cough Drug Allergy Jan, Active HydrOXYzine HCl Unknown Drug Allergy Jan, Active ENCOUNTERS Encounter Location Date Diagnosis [facility] [address] [facility] [id number] [address] Sep, [facility] [id number] [place] [address]2986- 2781 Sep, [facility] [address] [address] Sep, Postablative hypothyroidism E89.0 ; Pain in left knee M25.562 ; Edema, unspecified type R60.9 ; Multiple joint pain M25.50 and BMI 45.0-49.9, adult Z68.42 [place] [id number] [place] [address]252- 9335 Aug, [facility] [address] [place] [address] 12 Jul, 2017 History of swelling of feet Z87.39 [place] [id number] [place] [address] 57274- 6191 Jul, [facility] [id number] [place] [address]65 [address]169 Jul, Pain in left knee M25.562 ; Other chronic pain G89.29 and BMI 45.0-49.9, adult Z68.42 [place] [id number] [place] [address]273- 4791 Jun, [place] [id number] [place] [address] 83923- 1843 Jun, [place] [id number] [place] [address] 97959- 9348 May, Primary insomnia F51.01 [facility] [id number] [place] [address] 10775- 2885 Apr, [place] [id number] [place] [address] 89509- 2675 Apr, [facility] [address] [place] [address] 36762- 9860 Apr, Acute pain of left knee M25.562 ; Renal insufficiency N28.9 ; Fatigue, unspecified type R53.83 ; Postablative hypothyroidism E89.0 and BMI 40.0-44.9, adult Z68.41 [place] [id number] [place] [address]- 1935 Mar, Acute pain of left knee M25.562 [place] [id number] [place] [address] 58234- 9797 Feb, Renal insufficiency N28.9 [place] [id number] [place] [address] 65008- 5353 Feb, [place] [id number] [place] [address] 36149- 3847 Feb, [place] [id number] [place] [address] 84503- 1746 Feb, [place] [id number] [place] [address] 38790- 2896 Feb, Renal insufficiency N28.9 ; ADHD, predominantly inattentive type F90.0 ; Postablative hypothyroidism E89.0 ; Primary insomnia F51.01 ; Difficulty concentrating R41.840 ; History of swelling of feet Z87.39 ; Chronic pain syndrome G89.4 and Moderate episode of recurrent major depressive disorder F33.1 [place] [id number] [place] [address] 25257- 6169 Feb, [place] [id number] [place] [address] 65812- 7007 Feb, [place] [id number] [place] [address] 18633- 0821 Jan, ADHD, predominantly inattentive type F90.0 [place] [id number] [place] [address] 71059- 6696 Jan, Renal insufficiency N28.9 ; Postablative hypothyroidism E89.0 and History of swelling of feet Z87.39 [place] [id number] [place] [address] 20261- 2474 Jan, Chronic pain syndrome G89.4 [facility] [id number] [place] [address] 54541- 9292 Jan, [facility] [id number] [place] [address] 35572- 8206 Jan, Renal insufficiency N28.9 ; Primary insomnia F51.01 ; Difficulty concentrating R41.840 ; Postablative hypothyroidism E89.0 ; History of swelling of feet Z87.39 ; Chronic pain syndrome G89.4 and Moderate episode of recurrent major depressive disorder F33.1 [facility] [id number] [place] [address] 54051- 2150 Jan, [facility] [id number] [place] [address] 26496 [address]5226 Jan, Candidal dermatitis B37.2 [facility] [id number] [place] [address] 45283- 7355 Dec, [facility] [id number] [place] [address] Dec, [facility] [id number] [place] [address] 37665- 0479 Dec, [place] [id number] [place] [address] 43562- 2698 Dec, Stool color black K92.1 [facility] [id number] [place] [address] 06944- 6910 Dec, Diarrhea of presumed infectious origin A09 [facility] [id number] [place] [address] 77727- 9561 Dec, Right lower quadrant abdominal pain R10.31 and Stool color black K92.1 [facility] [id number] [place] [address] Nov, [facility] [id number] [place] [address] 14532- 4132 Nov, Visit for TB skin test Z11.1 and Pre-employment examination Z02.1 [facility] [address], [place] [address] 03 Nov, 2016 [facility] [address] [id number] [address] October, [facility] [id number] [place] [address] October, [facility] [address] [place] [id number] [place] [address] Aug, [facility] [address] [place] [id number] [place] [address] Aug, Other fatigue R53.83 ; BMI 45.0-49.9, adult Z68.42 ; Edema, unspecified type R60.9 ; Benign essential hypertension I10 and Lumbar degenerative disc disease M51.36 [facility] [id number] [place] [address] 08 Aug, 2016 Skin tag L91.8 [facility] [id number] [place] [address] 06 Aug, 2016 Abnormal laboratory test result R89.9 [facility] [address] [place] [id number] [place] [address] 20 Jul, 2016 Insomnia, unspecified type G47.00 [facility] [id number] [place] [address] 20 Jul, 2016 Benign essential hypertension I10 ; BMI 45.0-49.9, adult Z68.42 ; Lumbar degenerative disc disease M51.36 ; Edema, unspecified type R60.9 ; Other fatigue R53.83 and Hypothyroidism, unspecified type E03.9 [facility] [address] [id number], [place] [address] 07 Jul, 2016 [facility] [address] [place] [address] [address] 06 Jul, 2016 Benign essential hypertension I10 ; BMI 45.0-49.9, adult Z68.42 ; Lumbar degenerative disc disease M51.36 ; Edema, unspecified type R60.9 ; Other fatigue R53.83 and Hypothyroidism, unspecified type E03.9 [facility] [id number] [place] [address] Jun, [facility] [id number] [place] [address] Jun, [facility] [id number] [place] [address] Jun, Benign essential hypertension I10 ; Hypothyroidism, unspecified type E03.9 ; Other fatigue R53.83 ; Midline low back pain without sciatica, unspecified chronicity M54.5 and BMI 45.0-49.9, adult Z68.[address] [id number] Jun, Postablative hypothyroidism E89.0 ; Rhinopharyngitis J00 and Encounter for immunization Z23 [place] [id number] [place] [address] [phone] Jun, [place] [address] [place] [address] [phone] May, [facility] [address] [id number], [place] [address] May, [place] [id number] [place] [address] [phone] May, [place] [address] [place] [address] [phone] Apr, Hypothyroidism, unspecified type E03.9 [place] [address] [place] [address] [id number] Apr, Hypothyroidism, unspecified type E03.9 [facility] [id number] [id number] Apr, [facility] [id number][place] [id number] Mar, Hypothyroidism, unspecified type E03.9 ; Moderate single current episode of major depressive disorder F32.1 ; Other hyperlipidemia E78.4 and Elevated liver function tests R79.89 [facility] [address] [id number] [id number] Feb, [address] [id number] Dec, Moderate single current episode of major depressive disorder F32.1 [facility] [address]65[place] [id number] Nov, [place] [address]65[place] [phone] Nov, [facility] [address] [id number] [id number] Nov, Hypothyroidism, unspecified type E03.9 ; Other hyperlipidemia E78.4 and Elevated liver function tests R79.89 [facility] [id number] [id number] Nov, 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 ; Hypothyroidism, unspecified type E03.9 ; Benign essential hypertension I10 and Uncomplicated asthma, unspecified asthma severity J45.909 [place] [address] [place] [address] [id number] [id number] Nov, 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 ; Hypothyroidism, unspecified type E03.9 ; Benign essential hypertension I10 and Uncomplicated asthma, unspecified asthma severity J45.909 [facility] [address] [id number][place] [id number] October, [facility] [address]65[place] [id number] October, [facility] [id number][place] [phone] October, Abnormal laboratory test result R89.9 [facility] [address] [id number] [id number] October, Status post bilateral oophorectomy Z90.722 [facility] [id number] [place] [address] [phone] Sep, [facility] [address] [place] [address] [id number] Aug, [facility] [address] [place] [address] [phone] Aug, Complex ovarian cyst N83.20 [place] [address] [place] [address] [phone] Aug, Other acute sinusitis, recurrence not specified J01.80 [facility] [id number] [place] [address] [phone] Aug, [facility] [id number] [place] [address] 89843 2549 Jun, [address]65100[place] [phone] Jun, [facility] [address] [place] [address] [place] [address] [phone] May, Allergic rhinitis, unspecified allergic rhinitis type J30.9 [facility] [id number] [place] [address] 843138- 2381 May, [facility] [id number] [place] [address] [id number] Mar, [facility] [address] [place] [id number] Mar, [facility] [id number] [phone] Jan, Hypothyroidism 244.9 and Cyst in hand 727.43 [place] [address] [place] [address] [phone] Jan, [place] [address] [place] [address] [phone] Dec, [place] [address] [place] [address] [phone] Dec, Acute sinusitis 461.9 and Cough 786.[address] [id number] Dec, Insect bite 919.4 [address] [id number] Nov, [place] [address] [place] [address] [id number] Nov, [place] [address] [place] [address] [phone] Sep, Obesity, morbid 278.01 ; Sleep apnea, obstructive 327.23 and Fatigue due to sleep pattern disturbance 780.79 [place] [id number] [place] [address] 72007- 2973 Sep, [facility] [address] 6[address]28- 2452 Sep, [place] [address] [place] [address] [phone] Aug, [facility] [address] 17050- 4172 Aug, [place] [address] [place] [address] [id number] Jul, [facility] [address] [address]- 7746 Jul, [facility] [address] [facility] [id number], [place] [address]- [address] Jul, [facility] [address] [id number] [id number] Jul, [facility] [address] [id number] [id number] Jun, [facility] [address] [facility] [id number], [place] [address]- [address] Jun, [facility] [id number], [place] [phone] May, [facility] [address] [facility] [id number]- 9467 May, [facility] [address] [facility] [id number], [place] [address]- 6731 Mar, [facility] [address] [facility] [id number], [place] [address]- 9928 Mar, [facility] [address] [facility] [id number], [place] [address]- 4520 Mar, [facility] [id number], [place] [id number] Mar, [facility] [address] [facility] [id number], [place] [address]- 3421 Mar, [facility] [address] [facility] [id number], [place] [address]- 0259 Mar, [facility] [address] [facility] [id number], [place]111- 2065 Mar, [facility] [id number], [place] [id number] Mar, [facility] [address] [facility] [id number], [place] 488[place]- [address]35 Mar, [facility] [address] [id number] [place] [phone] Mar, [facility] [address] [facility] [id number], [place] [address]- 6727 Mar, IMMUNIZATIONS No Known Immunizations SOCIAL HISTORY Never Assessed REASON FOR VISIT Transition of Care, previously seen by A[facility] in [place]---DBennettRN, pain in bilateral upper and lower extremities, keeping awake at night. Was taking gabapentin but not helping, took meloxicam from a family member that did help, trouble focusing, starting new job wednesday, requesting Adderall, never formally diagnosed with ADD PLAN OF CARE Activity Details Follow Up 1 months or as indicated by lab Reason:swelling VITAL SIGNS Height 67.5 in 2017-02-17 Weight 294 lbs 2017-02-17 Temperature 97.7 degrees Fahrenheit 2017-02-17 Heart Rate 80 bpm 2017-02-17 Respiratory Rate 20 2017-02-17 BMI 45.36 kg/m2 2017-02-17 Blood pressure systolic 124 mmHg 2017-02-17 Blood pressure diastolic 90 mmHg 2017-02-17 MEDICATIONS Medication Instructions Dosage Frequency Start Date End Date Duration Status Ventolin HFA 90 mcg/actuation inhale 2-4 puff by Inhalation route as needed every 4 hours PRN for cough or wheeze Jul, Active Venlafaxine HCl 75MG Orally Once a day 1 tablet with food 24h Active Trazodone HCl 50 MG Orally Once a day 1 tablet at bedtime as needed 24h Jan, Active Gabapentin 300 MG Orally 3 times a day 8h May, Active CoQ-10 Active Furosemide 40 mg Orally Once a day 1 tablet 24h Active Albuterol Sulfate 2.5 mg /3 mL (0.083 %) 1 Each by Inhalation route every 4 hours for cough and wheeze PRN for wheezing or cough Jul, Active Zofran ODT 4 MG Active Bentyl 10 mg Orally Four times a day 1 capsule 6h Nov, Active Cyclobenzaprine HCl 10 mg Orally Three times a day 1 tablet as needed 8h Active Multivitamin Active Claritin 10 MG Orally Once a day 1 tablet 24h Active RESULTS No Results PROCEDURES Procedure Date Ordered Result Body Site ASSAY THYROID STIM HORMONE Feb 17, 2017 COMPREHEN METABOLIC PANEL Feb 17, 2017 COMPLETE CBC W/AUTO DIFF WBC Feb 17, 2017 VENIPUNCT, ROUTINE* Feb 17, 2017 INSTRUCTIONS MEDICATIONS ADMINISTERED No Known Medications [...]
--- OUTSIDE RECORDS SUMMARY | 2018-06-27 18:42 | XMS REPORT ---
Author Author JARED HALL [facility] Address [address] [place] [address] Care Team Providers Care Baggage Inspector Name Role Phone JARED HALL Unavailable PROBLEMS Type Condition ICD9-CM Code IMR73-IH Code Onset Dates Condition Status SNOMED Code Problem Primary insomnia F51.01 Active 4586883 Problem Renal insufficiency N28.9 Active 569879104 Problem Moderate episode of recurrent major depressive disorder F33.1 Active 16484934 Problem Other chronic pain G89.29 Active 12903563 Problem Acquired hypothyroidism E03.9 Active 879163254 Problem Chronic pain syndrome G89.4 Active 177355659 Problem Difficulty concentrating R41.840 Active 57529528 Problem Fatigue, unspecified type R53.83 Active 77675121 Problem ADHD, predominantly inattentive type F90.0 Active 93820328 Problem Benign essential hypertension I10 Active 7891263 Problem Allergic rhinitis, unspecified allergic rhinitis type J30.9 Active 00398086 Problem Positive urine drug screen R82.5 Active 763130215 Problem Other hyperlipidemia E78.4 Active 44729361 Problem Postablative hypothyroidism E89.0 Active 117487601 Problem Uncomplicated asthma, unspecified asthma severity J45.909 Active 537779394 Problem Major depressive disorder, single episode, unspecified F32.9 Active 98939238 Problem Anxiety F41.9 Active 97394616 Problem Lumbar degenerative disc disease M51.36 Active 43662113 ALLERGIES No Information ENCOUNTERS Encounter Location Date Diagnosis [facility] [address] [facility] [id number] [address] Sep, [facility] [address] [address] Sep, [facility] [id number] [address] Sep, [facility] [id number] [place] [address] Sep, Postablative hypothyroidism E89.0 ; Pain in left knee M25.562 ; Edema, unspecified type R60.9 ; Multiple joint pain M25.50 and BMI 45.0-49.9, adult Z68.42 [facility] [id number] [place] [address]10- [address]166 Aug, [facility] [address] [place] [address] 12 Jul, 2017 History of swelling of feet Z87.39 [facility] [address] [address] 05 Jul, 2017 [facility] [id number] [place] [address] 05 Jul, 2017 Pain in left knee M25.562 ; Other chronic pain G89.29 and BMI 45.0-49.9, adult Z68.42 [facility] [id number] [place] [address]79- 1783 Jun, [facility] [address] [address] Jun, [facility] [id number] [place] [address] 35390- 2892 May, Primary insomnia F51.01 [facility] [id number] [place] [address] 98613- 4195 Apr, [facility] [id number] [place] [address] 62160- 5651 Apr, [facility] [id number] [place] [address] 01459- 45[address] Apr, Acute pain of left knee M25.562 ; Renal insufficiency N28.9 ; Fatigue, unspecified type R53.83 ; Postablative hypothyroidism E89.0 and BMI 40.0-44.9, adult Z68.41 [facility] [address] [address] 03 Mar, 2017 Acute pain of left knee M25.562 [facility] [address] [place] [address]196- 3[address] 28 Feb, 2017 Renal insufficiency N28.9 [facility] [id number] [place] [address] 73218- 116[address] 27 Feb, 2017 [facility] [id number] [place] [address] 09052- 1483 Feb, [facility] [id number] [place] [address] 35983- 9280 Feb, [facility] [id number] [place] [address] 93434- 1393 Feb, Renal insufficiency N28.9 ; ADHD, predominantly inattentive type F90.0 ; Postablative hypothyroidism E89.0 ; Primary insomnia F51.01 ; Difficulty concentrating R41.840 ; History of swelling of feet Z87.39 ; Chronic pain syndrome G89.4 and Moderate episode of recurrent major depressive disorder F33.1 [facility] [id number] [place] [address] 44709- 4427 11 Feb, 2017 [facility] [id number] [place] [address] 68297- 9191 Feb, [facility] [id number] [place] [address] 47041- 8639 Jan, ADHD, predominantly inattentive type F90.0 [facility] [address] [place] [address] 68946- 5886 Jan, Renal insufficiency N28.9 ; Postablative hypothyroidism E89.0 and History of swelling of feet Z87.39 [facility] [address] [place] [address] 92988- 9391 Jan, Chronic pain syndrome G89.4 [facility] [id number] [place] [address] 70146- 1411 Jan, [facility] [address] [place] [address] 60959- 7256 Jan, Renal insufficiency N28.9 ; Primary insomnia F51.01 ; Difficulty concentrating R41.840 ; Postablative hypothyroidism E89.0 ; History of swelling of feet Z87.39 ; Chronic pain syndrome G89.4 and Moderate episode of recurrent major depressive disorder F33.1 [facility] [id number] [place] [address] 41450- 4565 Jan, [facility] [id number] [place] [address] Jan, Candidal dermatitis B37.2 [place] [id number] [place] [address] 35554- 0410 Dec, [facility] [id number] [place] [address] Dec, [place] [id number] [place] [address] 08640- 6430 Dec, [place] [id number] [place] [address] 03922- 0854 Dec, Stool color black K92.1 [place] [id number] [place] [address] 63927- 4856 Dec, Diarrhea of presumed infectious origin A09 [place] [id number] [place] [address] 15699- 7080 Dec, Right lower quadrant abdominal pain R10.31 and Stool color black K92.1 [facility] [id number] [place] [address] Nov, [place] [address] [place] [address] 44235- 0715 Nov, Visit for TB skin test Z11.1 and Pre-employment examination Z02.1 [place] [address] [id number] [address] Nov, [facility] [address] [place], [place] [id number] [address] October, [facility] [id number] [place] [address] October, [facility] [address] [place] [id number] [place] [address] Aug, [facility] [address] [place] [id number] [place] [address] Aug, Other fatigue R53.83 ; BMI 45.0-49.9, adult Z68.42 ; Edema, unspecified type R60.9 ; Benign essential hypertension I10 and Lumbar degenerative disc disease M51.36 [facility] [address] [place] [id number] [place] [address] 08 Aug, 2016 Skin tag L91.8 [facility] [address] [place] [id number] [place] [address] 06 Aug, 2016 Abnormal laboratory test result R89.9 [facility] [address] [place], [place] [id number] [place] [address] Jul, Insomnia, unspecified type G47.00 [facility] [address] [place], [place] [id number] [place] [address] Jul, Benign essential hypertension I10 ; BMI 45.0-49.9, adult Z68.42 ; Lumbar degenerative disc disease M51.36 ; Edema, unspecified type R60.9 ; Other fatigue R53.83 and Hypothyroidism, unspecified type E03.9 [facility] [address] [place], [place] [id number] [place] [address] 07 Jul, 2016 [facility] [address] [place], [place] [id number] [place] [address] Jul, Benign essential hypertension I10 ; BMI 45.0-49.9, adult Z68.42 ; Lumbar degenerative disc disease M51.36 ; Edema, unspecified type R60.9 ; Other fatigue R53.83 and Hypothyroidism, unspecified type E03.9 [facility] [id number] [place] [address] Jun, [facility] [id number] [place] [address] Jun, [facility] [address] [address] Jun, Benign essential hypertension I10 ; Hypothyroidism, unspecified type E03.9 ; Other fatigue R53.83 ; Midline low back pain without sciatica, unspecified chronicity M54.5 and BMI 45.0-49.9, adult Z68.[address] [id number] Jun, Postablative hypothyroidism E89.0 ; Rhinopharyngitis J00 and Encounter for immunization Z23 [address] [id number] Jun, [address] [id number] May, [facility] [id number] [place] [address] May, [address] [id number] May, [address] [id number] Apr, Hypothyroidism, unspecified type E03.[address] [id number] Apr, Hypothyroidism, unspecified type E03.[address] [id number] Apr, [facility] [id number] [place] [id number] Mar, Hypothyroidism, unspecified type E03.9 ; Moderate single current episode of major depressive disorder F32.1 ; Other hyperlipidemia E78.4 and Elevated liver function tests R79.89 [facility] [id number] [id number] Feb, [facility] [address] [id number] [id number] Dec, Moderate single current episode of major depressive disorder F32.1 [facility] [address]00565100[place] [id number] Nov, [facility] [id number] [place] [id number] Nov, [facility] [address] [id number] [place] [id number] Nov, Hypothyroidism, unspecified type E03.9 ; Other hyperlipidemia E78.4 and Elevated liver function tests R79.89 [facility] [id number] [place] [id number] Nov, 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 ; Hypothyroidism, unspecified type E03.9 ; Benign essential hypertension I10 and Uncomplicated asthma, unspecified asthma severity J45.909 [id number] [place] [id number] Nov, 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 ; Hypothyroidism, unspecified type E03.9 ; Benign essential hypertension I10 and Uncomplicated asthma, unspecified asthma severity J45.909 [facility] [id number] [place] [id number] October, [facility] [id number] [place] [id number] October, [facility] [id number] [place] [address] [id number] October, Abnormal laboratory test result R89.[address] [place] [address] [id number] October, Status post bilateral oophorectomy Z90.722 [id number] [place] [address] [id number] Sep, [address] [id number] Aug, [address] [id number] Aug, Complex ovarian cyst N83.[address] [id number] Aug, Other acute sinusitis, recurrence not specified J01.[address] [id number] Aug, [facility] [address] [id number]- 2615 Jun, [id number] [place] [address] [id number] Jun, [id number] [place] [address] [id number] May, Allergic rhinitis, unspecified allergic rhinitis type J30.9 [facility] [id number] [place] [address] [id number]- 5527 May, [id number] [place] [address] [id number] Mar, [id number] [place] [address] [id number] Mar, [id number] [place] [address] [id number] Jan, Hypothyroidism 244.9 and Cyst in hand 727.43 [facility] [address]00565100[place] [id number] Jan, [facility] [address] [place] [id number] [place] [address] [id number] Dec, [id number] [place] [address] [id number] Dec, Acute sinusitis 461.9 and Cough 786.2 [id number] [place] [address] [id number] Dec, Insect bite 919.4 [address] [place] [address] [id number] Nov, [id number] [place] [address] [id number] Nov, [id number] [place] [address] [id number] Sep, Obesity, morbid 278.01 ; Sleep apnea, obstructive 327.23 and Fatigue due to sleep pattern disturbance 780.[address] [address]- [address] Sep, [facility] [address] [place] [id number] [place] [address] 42526- 2329 Sep, [id number] [place] [address] [id number] Aug, [facility] [id number] [place] [address] 35259- 2746 Aug, [id number] [place] [address] [id number] Jul, [facility] [id number] [place] [address] 43304- 1393 Jul, [facility] [address] [place] [address] 03532- 8483 Jul, [facility] [address] [id number] [place] [id number] Jul, [facility] [address] [id number] [place] [id number] Jun, [facility] [address] [facility] [id number] [address]- [address] Jun, [facility] [id number] [place] [address] [id number] May, [facility] [address] [facility] [id number], [place] [address]- [address]3 May, [facility] [id number] [place] [address] 49871- 0265 Mar, [facility] [id number] [place] [address] 07627- 1711 Mar, [facility] [address] [id number] [address]- 7020 Mar, [facility] [address] [id number] [place] [id number] Mar, [facility] [address] [id number] 1606 Mar, [facility] [address] [id number], [place] [address]- 1040 Mar, [facility] [address] [facility] [id number], [place] [address]- 1595 Mar, [facility] [address] [id number] [place] [id number] Mar, [facility] [address] [facility] [id number], [place] [address]- [address] Mar, [facility] [address] [id number] [place] [id number] Mar, [facility] [address] [facility] [id number] [place] [address]- 8536 Mar, IMMUNIZATIONS No Known Immunizations SOCIAL HISTORY Never Assessed REASON FOR VISIT intake PLAN OF CARE Activity Details Follow Up Next Available Reason: F/U VITAL SIGNS MEDICATIONS Medication Instructions Dosage Frequency Start Date End Date Duration Status Trazodone HCl 50 MG Orally Once a day 1 tablet at bedtime as needed 24h Jan, Active Zofran ODT 4 MG Active Ventolin HFA 90 mcg/actuation inhale 2-4 puff by Inhalation route as needed every 4 hours PRN for cough or wheeze Jul, Active Bentyl 10 mg Orally Four times a day 1 capsule 6h Nov, Active Venlafaxine HCl 75MG Orally Once a day 1 tablet with food 24h Active Furosemide 40 mg Orally Once a day 1 tablet 24h Active Albuterol Sulfate 2.5 mg /3 mL (0.083 %) 1 Each by Inhalation route every 4 hours for cough and wheeze PRN for wheezing or cough Jul, Active Claritin 10 MG Orally Once a day 1 tablet 24h Active Multivitamin Active Levothyroxine Sodium 25 MCG Orally Once a day 1 tablet on an empty stomach in the morning 24h Jan, 30 day(s) Active Cyclobenzaprine HCl 10 mg Orally Three times a day 1 tablet as needed 8h Active CoQ-10 Active Gabapentin 300 MG Orally in the morning, 1 cap at noon and 2 cap at hs 1 capsule May, Active RESULTS No Results PROCEDURES Procedure Date Ordered Result Body Site Psych diagnostic evaluation, established patient Feb 23, 2017 INSTRUCTIONS MEDICATIONS ADMINISTERED No Known Medications [...]
--- OUTSIDE RECORDS SUMMARY | 2018-06-27 18:42 | XMS REPORT ---
Author Author DANITA ROBLES [facility] Address [address] [place] [address] Care Team Providers Care Wood Molder Name Role Phone ROBLES, DANITA Unavailable PROBLEMS Type Condition ICD9-CM Code YPM46-PP Code Onset Dates Condition Status SNOMED Code Problem Primary insomnia F51.01 Active 0613083 Problem Renal insufficiency N28.9 Active 167751376 Problem Moderate episode of recurrent major depressive disorder F33.1 Active 57881623 Problem Other chronic pain G89.29 Active 16982633 Problem Acquired hypothyroidism E03.9 Active 444918209 Problem Chronic pain syndrome G89.4 Active 597875574 Problem Difficulty concentrating R41.840 Active 41416224 Problem Fatigue, unspecified type R53.83 Active 91327170 Problem ADHD, predominantly inattentive type F90.0 Active 10429850 Problem Benign essential hypertension I10 Active 5138519 Problem Allergic rhinitis, unspecified allergic rhinitis type J30.9 Active 12923126 Problem Positive urine drug screen R82.5 Active 511573766 Problem Other hyperlipidemia E78.4 Active 52490927 Problem Postablative hypothyroidism E89.0 Active 172769364 Problem Uncomplicated asthma, unspecified asthma severity J45.909 Active 532405215 Problem Major depressive disorder, single episode, unspecified F32.9 Active 71239900 Problem Anxiety F41.9 Active 26180763 Problem Lumbar degenerative disc disease M51.36 Active 63667387 ALLERGIES No Information ENCOUNTERS Encounter Location Date Diagnosis [facility] [id number] [address] Aug, [facility] [address] [id number] [address] 12 Jul, 2017 History of swelling of feet Z87.39 [facility] [id number] [address] Jul, [facility] [address] [place] [address] Jul, Pain in left knee M25.562 ; Other chronic pain G89.29 and BMI 45.0-49.9, adult Z68.42 [facility] [id number] [place] [address]360[address] 2309 Jun, [facility] [address] [address] Jun, [facility] [id number] [place] [address]3880- 8558 May, Primary insomnia F51.01 [facility] [address] [address] Apr, [facility] [id number] [place] [address] 79245- 5524 Apr, [facility] [id number] [place] [address] 63403- 4821 Apr, Acute pain of left knee M25.562 ; Renal insufficiency N28.9 ; Fatigue, unspecified type R53.83 ; Postablative hypothyroidism E89.0 and BMI 40.0-44.9, adult Z68.41 [facility] [id number] [place] [address] 41604- 5347 Mar, Acute pain of left knee M25.562 [facility] [id number] [place] [address]76[address] 8224 Feb, Renal insufficiency N28.9 [facility] [id number] [place] [address] 72781- 7153 Feb, [facility] [id number] [place] [address] 69582- 2721 Feb, [facility] [id number] [place] [address] 36998- 6498 Feb, [id number] [place] [address] 71811- 2978 Feb, Renal insufficiency N28.9 ; ADHD, predominantly inattentive type F90.0 ; Postablative hypothyroidism E89.0 ; Primary insomnia F51.01 ; Difficulty concentrating R41.840 ; History of swelling of feet Z87.39 ; Chronic pain syndrome G89.4 and Moderate episode of recurrent major depressive disorder F33.1 [facility] [id number] [place] [address] 54326- 1365 Feb, [facility] [id number] [place] [address] 28465- 6712 Feb, [facility] [address] [address]- [address]7 Jan, ADHD, predominantly inattentive type F90.0 [address] [id number] [place] [address] 97504- 6784 Jan, Renal insufficiency N28.9 ; Postablative hypothyroidism E89.0 and History of swelling of feet Z87.39 [place] [id number] [place] [address] 94767- 5047 Jan, Chronic pain syndrome G89.4 [facility] [id number] [place] [address] 07508- 3197 Jan, [facility] [id number] [place] [address] 68523- 2562 Jan, Renal insufficiency N28.9 ; Primary insomnia F51.01 ; Difficulty concentrating R41.840 ; Postablative hypothyroidism E89.0 ; History of swelling of feet Z87.39 ; Chronic pain syndrome G89.4 and Moderate episode of recurrent major depressive disorder F33.1 [facility] [id number] [place] [address] 79494- 9501 Jan, [facility] [id number] [place] [address]16 -7417 Jan, Candidal dermatitis B37.2 [facility] [address] [address] Dec, [facility] [address] [id number] [address] Dec, [facility] [address] [address] Dec, [facility] [id number] [place] [address] 42544- 8038 Dec, Stool color black K92.1 [facility] [id number] [place] [address] 78697- 1315 Dec, Diarrhea of presumed infectious origin A09 [facility] [id number] [address] Dec, Right lower quadrant abdominal pain R10.31 and Stool color black K92.1 [facility] [address] [id number] [address] Nov, [facility] [id number] [place] [address] 92284- 6999 Nov, Visit for TB skin test Z11.1 and Pre-employment examination Z02.1 [place] [address] [address] Nov, [facility] [id number] [address] October, [facility] [id number] [address] October, [facility] [id number] [place] [address] Aug, [facility] [id number] [place] [address] Aug, Other fatigue R53.83 ; BMI 45.0-49.9, adult Z68.42 ; Edema, unspecified type R60.9 ; Benign essential hypertension I10 and Lumbar degenerative disc disease M51.36 [facility] [id number] [place] [address] 08 Aug, 2016 Skin tag L91.8 [facility] [id number] [place] [address] 06 Aug, 2016 Abnormal laboratory test result R89.9 [facility] [id number] [place] [address] Jul, Insomnia, unspecified type G47.00 [facility] [address] [address] Jul, Benign essential hypertension I10 ; BMI 45.0-49.9, adult Z68.42 ; Lumbar degenerative disc disease M51.36 ; Edema, unspecified type R60.9 ; Other fatigue R53.83 and Hypothyroidism, unspecified type E03.9 [facility] [id number] [place] [address] Jul, [facility] [id number] [place] [address] Jul, Benign essential hypertension I10 ; BMI 45.0-49.9, adult Z68.42 ; Lumbar degenerative disc disease M51.36 ; Edema, unspecified type R60.9 ; Other fatigue R53.83 and Hypothyroidism, unspecified type E03.9 [facility] [id number] [place] [address] Jun, [facility] [id number] [place] [address] Jun, [facility] [id number] [place] [address] Jun, Benign essential hypertension I10 ; Hypothyroidism, unspecified type E03.9 ; Other fatigue R53.83 ; Midline low back pain without sciatica, unspecified chronicity M54.5 and BMI 45.0-49.9, adult Z68.42 [id number] [place] [id number] Jun, Postablative hypothyroidism E89.0 ; Rhinopharyngitis J00 and Encounter for immunization Z23 [id number] [place] [id number] Jun, [address] [id number] May, [facility] [address] [address] May, [id number] [place] [address] [id number] May, [id number] [place] [address] [id number] Apr, Hypothyroidism, unspecified type E03.9 [id number] [place] [address] [id number] Apr, Hypothyroidism, unspecified type E03.9 [id number] [place] [address] [id number] Apr, [id number] [place] [address] [id number] Mar, Hypothyroidism, unspecified type E03.9 ; Moderate single current episode of major depressive disorder F32.1 ; Other hyperlipidemia E78.4 and Elevated liver function tests R79.89 [facility] [id number] [place] [id number] Feb, [id number] [place] [address] [id number] Dec, Moderate single current episode of major depressive disorder F32.1 [id number] [place] [address] [id number] Nov, [facility] [address] [id number] Nov, [facility] [address] [id number] [id number] Nov, Hypothyroidism, unspecified type E03.9 ; Other hyperlipidemia E78.4 and Elevated liver function tests R79.89 [id number] [place] [address] [id number] Nov, 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 ; Hypothyroidism, unspecified type E03.9 ; Benign essential hypertension I10 and Uncomplicated asthma, unspecified asthma severity J45.909 [id number] [place] [address] [id number] Nov, 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 ; Hypothyroidism, unspecified type E03.9 ; Benign essential hypertension I10 and Uncomplicated asthma, unspecified asthma severity J45.909 [address] [id number] [id number] October, [id number] [place] [address] [id number] October, [id number] [place] [address] [id number] October, Abnormal laboratory test result R89.9 [id number] [place] [address] [id number] October, Status post bilateral oophorectomy Z90.722 [address]00565100[place] [id number] Sep, [id number] [place] [address] [id number] Aug, [id number] [id number] Aug, Complex ovarian cyst N83.[address] [id number] Aug, Other acute sinusitis, recurrence not specified J01.80 [address] [place] [address] [id number] Aug, [facility] [id number] [place] [address] [phone]- 4861 Jun, [address] [place] [address] [id number] Jun, [address] [place] [address] [id number] May, Allergic rhinitis, unspecified allergic rhinitis type J30.9 [facility] [address] [place] [address] 138181- 9412 May, [id number] [place] [address] [id number] Mar, [address] [place] [address] [id number] Mar, [address] [place] [address] [id number] Jan, Hypothyroidism 244.9 and Cyst in hand 727.43 [address] [place] [address] [id number] Jan, [address] [place] [address] [id number] Dec, [address] [place] [address] [id number] Dec, Acute sinusitis 461.9 and Cough 786.2 [address] [place] [address] [id number] Dec, Insect bite 919.4 [facility] [address] [place] [address] [id number] Nov, [facility] [id number] [id number] Nov, [facility] [address] [place] [id number] [place] [address] [id number] Sep, Obesity, morbid 278.01 ; Sleep apnea, obstructive 327.23 and Fatigue due to sleep pattern disturbance 780.79 [facility] [address] [address]- [address] Sep, [facility] [id number] [place] [address] 80751- 2546 Sep, [facility] [address] [place] [id number] [place] [address] [id number] Aug, [facility] [id number] [place] [address] 64511- 2546 Aug, [id number] [place] [address] [id number] Jul, [facility] [id number] [place] [address] 55330- 2546 Jul, [facility] [id number] [place] [address] 02188- 2546 Jul, [address]00565100[place] [id number] Jul, [id number] [place] [address] [id number] Jun, [facility] [address] [place] [address] 64963- 2546 Jun, [id number] [place] [address] [id number] May, [facility] [address] [address]- 25[address] May, [facility] [id number] [address]- 5382 Mar, [facility] [address] [address]- 8118 Mar, [facility] [address] [address]- 1110 Mar, [address]65100[place] [id number] Mar, [facility] [address] [address] Mar, [facility] [id number] [place] [address] 40933- 2179 Mar, [facility] [id number] [place] [address] 68850- 9516 Mar, [id number] [place] [address] [id number] Mar, [facility] [address] [address]- [address] Mar, [id number] [place] [address] [id number] Mar, [facility] [address] [address]- 18[address] Mar, IMMUNIZATIONS No Known Immunizations SOCIAL HISTORY [...]
--- OUTSIDE RECORDS SUMMARY | 2018-06-27 18:43 | XMS REPORT ---
Author Author JUVE MARCUS Organization [facility] Address [address] [address] Care Team Providers Care Ladder Operator Name Role Phone JUVE MARCUS Unavailable PROBLEMS Type Condition ICD9-CM Code VTY32-BI Code Onset Dates Condition Status SNOMED Code Problem Other hyperlipidemia E78.4 Active 46809716 Problem Major depressive disorder, single episode, unspecified F32.9 Active 71987464 Problem Postablative hypothyroidism E89.0 Active 198682532 Problem Benign essential hypertension I10 Active 5086318 Problem Allergic rhinitis, unspecified allergic rhinitis type J30.9 Active 26161261 Problem Uncomplicated asthma, unspecified asthma severity J45.909 Active 743629272 Problem Anxiety F41.9 Active 56771589 Problem Primary insomnia F51.01 Active 3763669 Problem Chronic pain syndrome G89.4 Active 044533271 Problem Moderate episode of recurrent major depressive disorder F33.1 Active 14428702 Problem Lumbar degenerative disc disease M51.36 Active 64527588 Problem Renal insufficiency N28.9 Active 895964581 Problem Difficulty concentrating R41.840 Active 56454426 ALLERGIES Unknown Allergies SOCIAL HISTORY No smoking Hx information available PLAN OF CARE VITAL SIGNS MEDICATIONS Unknown Medications RESULTS No Results PROCEDURES No Known procedures IMMUNIZATIONS No Known Immunizations
--- OUTSIDE RECORDS SUMMARY | 2018-06-27 18:43 | XMS REPORT ---
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 Name Role Phone DEMETRI JASON Unavailable PROBLEMS Type Condition ICD9-CM Code PUV67-PH Code Onset Dates Condition Status SNOMED Code Problem Primary insomnia F51.01 Active 4105704 Problem Renal insufficiency N28.9 Active 234680537 Problem Moderate episode of recurrent major depressive disorder F33.1 Active 93818213 Problem Other chronic pain G89.29 Active 21366077 Problem Acquired hypothyroidism E03.9 Active 675406328 Problem Chronic pain syndrome G89.4 Active 860166978 Problem Difficulty concentrating R41.840 Active 15219118 Problem Fatigue, unspecified type R53.83 Active 92544000 Problem ADHD, predominantly inattentive type F90.0 Active 16807030 Problem Benign essential hypertension I10 Active 6122499 Problem Allergic rhinitis, unspecified allergic rhinitis type J30.9 Active 78711491 Problem Positive urine drug screen R82.5 Active 230610064 Problem Other hyperlipidemia E78.4 Active 87520416 Problem Postablative hypothyroidism E89.0 Active 953041554 Problem Uncomplicated asthma, unspecified asthma severity J45.909 Active 606280822 Problem Major depressive disorder, single episode, unspecified F32.9 Active 25383335 Problem Anxiety F41.9 Active 17320597 Problem Lumbar degenerative disc disease M51.36 Active 70832294 ALLERGIES No Information ENCOUNTERS Encounter Location Date Diagnosis [facility] [address] [facility] [id number] [address] Jan, [facility] [address] [facility] [id number] [place] [address] Nov, Generalized abdominal pain R10.84 ; History of abdominal hernia Z87.19 ; Pain of left calf M79.662 and BMI 45.0-49.9, adult Z68.42 [facility] [address] [place] [address] 95852- 6900 Sep, [facility] [id number] [place] [address] 98367- 5663 Sep, [facility] [id number] [place] [address] 18382- 3106 Sep, Postablative hypothyroidism E89.0 ; Pain in left knee M25.562 ; Edema, unspecified type R60.9 ; Multiple joint pain M25.50 and BMI 45.0-49.9, adult Z68.42 [place] [id number] [place] [address] 68773- 1565 Aug, [facility] [address] [place] [id number] [place] [address] Jul, History of swelling of feet Z87.39 [facility] [id number] [place] [address] 90435- 0900 Jul, [facility] [id number] [place] [address] 27705 -4608 Jul, Pain in left knee M25.562 ; Other chronic pain G89.29 and BMI 45.0-49.9, adult Z68.42 [place] [id number] [place] [address] 78969- 8294 Jun, [facility] [id number] [place] [address] 68107- 5758 Jun, [facility] [id number] [place] [address] 59970- 6083 May, Primary insomnia F51.01 [facility] [id number] [place] [address] 33123- 2557 Apr, [facility] [id number] [place] [address] 28152- 2522 Apr, [facility] [id number] [place] [address] 62832- 9237 Apr, Acute pain of left knee M25.562 ; Renal insufficiency N28.9 ; Fatigue, unspecified type R53.83 ; Postablative hypothyroidism E89.0 and BMI 40.0-44.9, adult Z68.41 [facility] [id number] [place] [address] 00394- 4204 Mar, Acute pain of left knee M25.562 [facility] [id number] [place] [address] 78707- 6663 Feb, Renal insufficiency N28.9 [facility] [id number] [place] [address] 75017- 4724 Feb, [facility] [id number] [place] [address] 78853- 9682 Feb, [facility] [id number] [place] [address] 17304- 5590 Feb, [facility] [id number] [place] [address] 11234- 3757 Feb, Renal insufficiency N28.9 ; ADHD, predominantly inattentive type F90.0 ; Postablative hypothyroidism E89.0 ; Primary insomnia F51.01 ; Difficulty concentrating R41.840 ; History of swelling of feet Z87.39 ; Chronic pain syndrome G89.4 and Moderate episode of recurrent major depressive disorder F33.1 [facility] [id number] [place] [address] 60142- 0058 Feb, [facility] [id number] [place] [address] 32285- 8542 Feb, [place] [id number] [place] [address] 15863- 7897 Jan, ADHD, predominantly inattentive type F90.0 [facility] [id number] [place] [address] 20330- 2342 Jan, Renal insufficiency N28.9 ; Postablative hypothyroidism E89.0 and History of swelling of feet Z87.39 [facility] [address] [place] [address] 47249- 5783 Jan, Chronic pain syndrome G89.4 [facility] [id number] [place] [address] 48967- 7015 Jan, [facility] [id number] [place] [address] 65910- 5533 Jan, Renal insufficiency N28.9 ; Primary insomnia F51.01 ; Difficulty concentrating R41.840 ; Postablative hypothyroidism E89.0 ; History of swelling of feet Z87.39 ; Chronic pain syndrome G89.4 and Moderate episode of recurrent major depressive disorder F33.1 [facility] [id number] [place] [address] 14463- 1963 Jan, [facility] [id number] [place] [address] 66014 [address]2836 Jan, Candidal dermatitis B37.2 [facility] [id number] [place] [address] 84819- 1768 Dec, [facility] [id number] [place] [address] Dec, [facility] [id number] [place] [address] 14343- 9357 Dec, [facility] [place] [id number] [place] [address] 31745- 0760 Dec, Stool color black K92.1 [facility] [id number] [place] [address] 26186- 3311 Dec, Diarrhea of presumed infectious origin A09 [facility] [id number] [place] [address] 51603- 1692 Dec, Right lower quadrant abdominal pain R10.31 and Stool color black K92.1 [facility] [id number] [place] [address] 26 Nov, 2016 [facility] [address] [place] [address] 14 Nov, 2016 Visit for TB skin test Z11.1 and Pre-employment examination Z02.1 [facility] [address] [place] [address] 03 Nov, 2016 [facility] [id number] [place] [address] October, [facility] [id number] [place] [address] October, [facility] [id number] [place] [address] Aug, [facility] [id number] [place] [address] Aug, Other fatigue R53.83 ; BMI 45.0-49.9, adult Z68.42 ; Edema, unspecified type R60.9 ; Benign essential hypertension I10 and Lumbar degenerative disc disease M51.36 [facility] [id number] [place] [address] 08 Aug, 2016 Skin tag L91.8 [facility] [id number] [place] [address] Aug, Abnormal laboratory test result R89.9 [facility] [id number] [place] [address] Jul, Insomnia, unspecified type G47.00 [facility] [id number] [place] [address] Jul, Benign essential hypertension I10 ; BMI 45.0-49.9, adult Z68.42 ; Lumbar degenerative disc disease M51.36 ; Edema, unspecified type R60.9 ; Other fatigue R53.83 and Hypothyroidism, unspecified type E03.9 [facility] [address] [id number], [place] [address] Jul, [facility] [id number] [place] [address] Jul, Benign essential hypertension I10 ; BMI 45.0-49.9, adult Z68.42 ; Lumbar degenerative disc disease M51.36 ; Edema, unspecified type R60.9 ; Other fatigue R53.83 and Hypothyroidism, unspecified type E03.9 [facility] [id number] [place] [address] Jun, [facility] [address] [address] Jun, [facility] [id number] [place] [address] Jun, Benign essential hypertension I10 ; Hypothyroidism, unspecified type E03.9 ; Other fatigue R53.83 ; Midline low back pain without sciatica, unspecified chronicity M54.5 and BMI 45.0-49.9, adult Z68.[address] [id number] Jun, Postablative hypothyroidism E89.0 ; Rhinopharyngitis J00 and Encounter for immunization Z23 [place] [id number] [place] [address] [id number] Jun, [place] [id number] [place] [address] [id number] May, [facility] [id number] [place] [address] May, [place] [id number] [place] [address] [id number] May, [place] [address] [place] [address] [id number] Apr, Hypothyroidism, unspecified type E03.9 [facility] [address] [facility] [id number] [id number] Apr, Hypothyroidism, unspecified type E03.9 [facility] [address] [id number] [phone] Apr, [facility] [id number][place] [phone] Mar, Hypothyroidism, unspecified type E03.9 ; Moderate single current episode of major depressive disorder F32.1 ; Other hyperlipidemia E78.4 and Elevated liver function tests R79.89 [facility] [address] [id number] [phone] Feb, [facility] [address]00565100[place] [phone] Dec, Moderate single current episode of major depressive disorder F32.1 [facility] [id number][place] [id number] Nov, [facility] [id number][place] [id number] Nov, [facility] [address] [id number] [id number] Nov, Hypothyroidism, unspecified type E03.9 ; Other hyperlipidemia E78.4 and Elevated liver function tests R79.89 [facility] [address] [id number][place] [id number] Nov, 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 ; Hypothyroidism, unspecified type E03.9 ; Benign essential hypertension I10 and Uncomplicated asthma, unspecified asthma severity J45.909 [facility] [address] [id number][place] [id number] 08 Nov, 2015 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 ; Hypothyroidism, unspecified type E03.9 ; Benign essential hypertension I10 and Uncomplicated asthma, unspecified asthma severity J45.909 [facility] [address] [place] [id number] October, [facility] [address] [place] [address] [place] [address] [id number] October, [facility] [address] [place] [address] [place] [address] [id number] October, Abnormal laboratory test result R89.9 [place] [id number] [place] [address] [id number] October, Status post bilateral oophorectomy Z90.722 [place] [address] [place] [address] [id number] Sep, [facility] [address] [place] [address] [place] [address] [id number] Aug, [place] [address] [place] [address] [id number] Aug, Complex ovarian cyst N83.20 [place] [address] [place] [address] [id number] Aug, Other acute sinusitis, recurrence not specified J01.80 [place] [address] [place] [address] [id number] Aug, [facility] [id number] [place] [address] 97499 2549 Jun, [place] [address] [place] [address] [id number] Jun, [place] [address] [place] [address] [id number] May, Allergic rhinitis, unspecified allergic rhinitis type J30.9 [facility] [id number] [place] [address] 72788- 3968 May, [place] [address] [place] [address] [id number] Mar, [facility] [address]00565100[place] [id number] Mar, [address] [id number] Jan, Hypothyroidism 244.9 and Cyst in hand 727.[address] [id number] Jan, [address] [id number] Dec, [address] [id number] Dec, Acute sinusitis 461.9 and Cough 786.[address] [place] [address] [place] [address] [id number] Dec, Insect bite 919.4 [id number] [id number] Nov, [place] [address] [place] [address] [id number] Nov, [place] [address] [place] [address] [id number] Sep, Obesity, morbid 278.01 ; Sleep apnea, obstructive 327.23 and Fatigue due to sleep pattern disturbance 780.79 [place] [id number] [place] [address] 22413- 1604 Sep, [facility] [address] 76817- 2381 Sep, [place] [address] [place] [address] [id number] Aug, [facility] [id number] [place] [address] [phone]- 8016 Aug, [place] [address] [place] [address] [id number] Jul, [facility] [address] [facility] [id number] [place] [address]- 7549 Jul, [facility] [address] [facility] [id number] [place] [address]- 8982 Jul, [facility] [id number], [place] [id number] Jul, [facility] [id number][place] [id number] Jun, [facility] [address] [facility] [id number] [place] [address]- [address] Jun, [facility] [id number], [place] [id number] May, [facility] [id number]- 0992 May, [facility] [address] [facility] [id number] [place] [address]- 9422 Mar, [facility] [address] [facility] [id number] [place] [address]- 4761 Mar, [facility] [address] [facility] [id number] [place] [address]- 5548 Mar, [facility] [id number], [place] [id number] Mar, [facility] [address] [facility] [id number] [place]62[place]- 7322 Mar, [facility] [address] [facility] [id number] [place] [address]- 5617 Mar, [facility] [address] [facility] [id number] [place] [address]- 2403 Mar, [facility] [id number], [place] [id number] Mar, [facility] [address] [facility] [id number] [place] [address]- 3715 Mar, [facility] [address] [facility] [id number] [place] [id number] Mar, [facility] [address] [facility] [id number] [place] [address] 1302 Mar, IMMUNIZATIONS No Known Immunizations SOCIAL HISTORY Never Assessed REASON FOR VISIT Requests return call PLAN OF CARE VITAL SIGNS MEDICATIONS Unknown Medications RESULTS No Results PROCEDURES Procedure Date Ordered Result Body Site SLEEP STUDY (HOSPITAL) 2017-06-15 Cancelled per patient request INSTRUCTIONS MEDICATIONS ADMINISTERED No Known Medications MEDICAL [...]
--- OUTSIDE RECORDS SUMMARY | 2018-06-27 18:43 | XMS REPORT ---
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 Name Role Phone JUVE MARCUS Unavailable PROBLEMS Type Condition ICD9-CM Code AAZ41-YE Code Onset Dates Condition Status SNOMED Code Problem Postablative hypothyroidism E89.0 Active 344617412 Problem Lumbar degenerative disc disease M51.36 Active 26895515 Problem Major depressive disorder, single episode, unspecified F32.9 Active 19873890 Problem ADHD, predominantly inattentive type F90.0 Active 14463446 Problem Primary insomnia F51.01 Active 1829915 Problem Difficulty concentrating R41.840 Active 95290499 Problem Moderate episode of recurrent major depressive disorder F33.1 Active 07869207 Problem Chronic pain syndrome G89.4 Active 378173607 Problem Renal insufficiency N28.9 Active 666495380 Problem Allergic rhinitis, unspecified allergic rhinitis type J30.9 Active 40651998 Problem Uncomplicated asthma, unspecified asthma severity J45.909 Active 166017456 Problem Positive urine drug screen R82.5 Active 338226301 Problem Anxiety F41.9 Active 51982076 Problem Benign essential hypertension I10 Active 2361286 Problem Other hyperlipidemia E78.4 Active 32213788 ALLERGIES No Information SOCIAL HISTORY Never Assessed PLAN OF CARE VITAL SIGNS MEDICATIONS Medication Instructions Dosage Frequency Start Date End Date Duration Status Vistaril 25 MG Orally at bedtime as needed 1 capsule Active RESULTS No Results PROCEDURES No Known [...]
--- OUTSIDE RECORDS SUMMARY | 2018-06-27 18:43 | XMS REPORT ---
Author Author KIM LEWIS Organization [facility] Address [address] [place] [address] Care Team Providers Care Compliance Vice President Name Role Phone KIM LEWIS Unavailable PROBLEMS Type Condition ICD9-CM Code [id number] Code Onset Dates Condition Status SNOMED Code Problem Primary insomnia F51.01 Active 6621821 Problem Renal insufficiency N28.9 Active 548750070 Problem Moderate episode of recurrent major depressive disorder F33.1 Active 70218354 Problem Other chronic pain G89.29 Active 80580381 Problem Acquired hypothyroidism E03.9 Active 364339233 Problem Chronic pain syndrome G89.4 Active 506461884 Problem Difficulty concentrating R41.840 Active 94630493 Problem Fatigue, unspecified type R53.83 Active 10766067 Problem ADHD, predominantly inattentive type F90.0 Active 58826021 Problem Benign essential hypertension I10 Active 6360897 Problem Allergic rhinitis, unspecified allergic rhinitis type J30.9 Active 88667229 Problem Positive urine drug screen R82.5 Active 662834751 Problem Other hyperlipidemia E78.4 Active 09915556 Problem Postablative hypothyroidism E89.0 Active 001454156 Problem Uncomplicated asthma, unspecified asthma severity J45.909 Active 359699884 Problem Major depressive disorder, single episode, unspecified F32.9 Active 15244343 Problem Anxiety F41.9 Active 72146056 Problem Lumbar degenerative disc disease M51.36 Active 22494221 ALLERGIES No Information ENCOUNTERS Encounter Location Date Diagnosis [facility] [address] [facility] [id number] [address] Sep, [facility] [address] [id number], [place] [address] Aug, [facility] [address] [id number] [address] 12 Jul, 2017 History of swelling of feet Z87.39 [facility] [id number] [place] [address]659[address] 76[address] Jul, [facility] [id number] [place] [address] Jul, Pain in left knee M25.562 ; Other chronic pain G89.29 and BMI 45.0-49.9, adult Z68.42 [place] [address] [address] Jun, [facility] [address] [address] Jun, [place] [address] [address] May, Primary insomnia F51.01 [place] [address] [address] Apr, [facility] [address] [address] Apr, [place] [address] [address] Apr, Acute pain of left knee M25.562 ; Renal insufficiency N28.9 ; Fatigue, unspecified type R53.83 ; Postablative hypothyroidism E89.0 and BMI 40.0-44.9, adult Z68.41 [place] [id number] [place] [address]29- 2936 Mar, Acute pain of left knee M25.562 [place] [id number] [place] [address] 58127- 7190 Feb, Renal insufficiency N28.9 [place] [address] [address]- [address] Feb, [place] [address] [id number] [place] [address] 68194- 3686 Feb, [place] [address], [place] [address] Feb, [facility] [id number] [place] [address]27- [address]887 Feb, Renal insufficiency N28.9 ; ADHD, predominantly inattentive type F90.0 ; Postablative hypothyroidism E89.0 ; Primary insomnia F51.01 ; Difficulty concentrating R41.840 ; History of swelling of feet Z87.39 ; Chronic pain syndrome G89.4 and Moderate episode of recurrent major depressive disorder F33.1 [facility] [address] [place] [address] 05717- 9117 Feb, [place] [id number] [place] [address] 11765- 7735 Feb, [place] [id number] [place] [address] 78308- 0099 Jan, ADHD, predominantly inattentive type F90.0 [place] [id number] [place] [address] 58369- 5254 Jan, Renal insufficiency N28.9 ; Postablative hypothyroidism E89.0 and History of swelling of feet Z87.39 [place] [id number] [place] [address]14- 5106 Jan, Chronic pain syndrome G89.4 [place] [address] [place] [address] 25573- 4802 Jan, [facility] [id number] [place] [address] 36653- 8020 Jan, Renal insufficiency N28.9 ; Primary insomnia F51.01 ; Difficulty concentrating R41.840 ; Postablative hypothyroidism E89.0 ; History of swelling of feet Z87.39 ; Chronic pain syndrome G89.4 and Moderate episode of recurrent major depressive disorder F33.1 [facility] [address], [place] [address] Jan, [facility] [address], [place] [address] Jan, Candidal dermatitis B37.2 [facility] [address], [place] [address] Dec, [facility] [id number], [place] [address] Dec, [facility] [id number] [place] [address] 20630- 2253 Dec, [facility] [id number] [place] [address] 71746- 9941 Dec, Stool color black K92.1 [facility] [address] [place] [address] 93438- 7908 Dec, Diarrhea of presumed infectious origin A09 [facility] [address] [place] [address] 70699- 4551 Dec, Right lower quadrant abdominal pain R10.31 and Stool color black K92.1 [facility] [id number], [place] [address] Nov, [facility] [address] [id number] [address] Nov, Visit for TB skin test Z11.1 and Pre-employment examination Z02.1 [facility] [address], [place] [address] Nov, [facility] [id number], [place] [address] October, [facility] [id number] [address] October, [facility] [id number], [place] [address] Aug, [facility] [id number], [place] [address] Aug, Other fatigue R53.83 ; BMI 45.0-49.9, adult Z68.42 ; Edema, unspecified type R60.9 ; Benign essential hypertension I10 and Lumbar degenerative disc disease M51.36 [facility] [address] [place] [id number] [place] [address] 08 Aug, 2016 Skin tag L91.8 [facility] [address] [address] Aug, Abnormal laboratory test result R89.9 [facility] [address] [place] [id number] [place] [address] Jul, Insomnia, unspecified type G47.00 [facility] [address] [place] [id number] [place] [address] Jul, Benign essential hypertension I10 ; BMI 45.0-49.9, adult Z68.42 ; Lumbar degenerative disc disease M51.36 ; Edema, unspecified type R60.9 ; Other fatigue R53.83 and Hypothyroidism, unspecified type E03.9 [facility] [address] [place] [id number] [place] [address] Jul, [facility] [address] [place] [id number] [place] [address] Jul, Benign essential hypertension I10 ; BMI 45.0-49.9, adult Z68.42 ; Lumbar degenerative disc disease M51.36 ; Edema, unspecified type R60.9 ; Other fatigue R53.83 and Hypothyroidism, unspecified type E03.9 [facility] [address] [place] [id number] [place] [address] Jun, [facility] [address] [place] [id number] [place] [address] Jun, [facility] [address] [place] [id number] [place] [address] Jun, Benign essential hypertension I10 ; Hypothyroidism, unspecified type E03.9 ; Other fatigue R53.83 ; Midline low back pain without sciatica, unspecified chronicity M54.5 and BMI 45.0-49.9, adult Z68.42 [place] [id number] [place] [address] [id number] Jun, Postablative hypothyroidism E89.0 ; Rhinopharyngitis J00 and Encounter for immunization Z23 [address] [id number] Jun, [address] [id number] May, [facility] [address] [place] [address] May, [place] [id number] [place] [id number] May, [place] [id number] [place] [address] [id number] Apr, Hypothyroidism, unspecified type E03.9 [place] [id number] [place] [address] [id number] Apr, Hypothyroidism, unspecified type E03.9 [place] [id number] [place] [id number] Apr, [place] [address] [place] [address] [id number] Mar, Hypothyroidism, unspecified type E03.9 ; Moderate single current episode of major depressive disorder F32.1 ; Other hyperlipidemia E78.4 and Elevated liver function tests R79.89 [facility] [address] [id number] [id number] Feb, [place] [id number] [place] [address] [id number] Dec, Moderate single current episode of major depressive disorder F32.1 [facility] [id number] [id number] Nov, [facility] [address] [id number] [id number] Nov, [facility] [address] [id number] [id number] Nov, Hypothyroidism, unspecified type E03.9 ; Other hyperlipidemia E78.4 and Elevated liver function tests R79.89 [facility] [address] [id number] [address] Nov, 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 ; Hypothyroidism, unspecified type E03.9 ; Benign essential hypertension I10 and Uncomplicated asthma, unspecified asthma severity J45.909 [place] [address] [place] [place] [id number] Nov, 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 ; Hypothyroidism, unspecified type E03.9 ; Benign essential hypertension I10 and Uncomplicated asthma, unspecified asthma severity J45.909 [facility] [id number] [id number] October, [facility] [address] [id number] [id number] October, [address]00565100[place] [id number] October, Abnormal laboratory test result R89.9 [facility] [address] [id number] [id number] October, Status post bilateral oophorectomy Z90.722 [facility] [address] [id number] [id number] Sep, [facility] [address]00565100[place] [id number] Aug, [facility] [id number] [place] [address] [id number] Aug, Complex ovarian cyst N83.20 [place] [id number] [place] [address] [id number] Aug, Other acute sinusitis, recurrence not specified J01.80 [place] [id number] [place] [address] [id number] Aug, [place] [address] [address] Jun, [place] [id number] [place] [address] [id number] Jun, [address] [id number] May, Allergic rhinitis, unspecified allergic rhinitis type J30.9 [place] [address] [id number] [place] [address] 542669- 2994 May, [place] [id number] [place] [address] [id number] Mar, [address] [id number] Mar, [place] [id number] [place] [address] [id number] Jan, Hypothyroidism 244.9 and Cyst in hand 727.43 [place] [address] [place] [address] [id number] Jan, [place] [id number] [place] [address] [id number] Dec, [place] [address] [place] [address] [id number] Dec, Acute sinusitis 461.9 and Cough 786.2 [place] [id number] [place] [address] [id number] Dec, Insect bite 919.4 [facility] [address] [place] [id number] [id number] Nov, [facility] [address] [place] [id number] [place] [address] [id number] Nov, [facility] [address] [place] [id number] [place] [address] [id number] Sep, Obesity, morbid 278.01 ; Sleep apnea, obstructive 327.23 and Fatigue due to sleep pattern disturbance 780.79 [facility] [id number] [place] [address] 93228- 7266 Sep, [facility] [address] [address]- [address]6 Sep, [place] [id number] [place] [address] [id number] Aug, [facility] [id number] [place] [address] 14989- 2546 Aug, [place] [id number] [place] [address] [id number] Jul, [facility] [id number] [place] [address] 11429- 7076 Jul, [facility] [id number] [place] [address] 33780- 2546 Jul, [facility] [address] [place] [id number] [place] [address] [id number] Jul, [place] [id number] [place] [address] [id number] Jun, [facility] [id number] [place] [address] 14829- 2546 Jun, [place] [id number] [place] [address] [id number] May, [facility] [address] [id number] May, [facility] [address] [address] Mar, [facility] [address]65[address] Mar, [facility] [address]65100[place], [place] [address]- 74[address] Mar, [place] [id number] [id number] Mar, [facility] [address] [place] [address] 175697- 6062 Mar, [facility] [address]65[address], [place] [address]- 1334 Mar, [facility] [address]65100[place], [place] [address]- 3660 Mar, [place] [id number] [id number] Mar, [facility] [address]65100[place], [place] [address]- [address]60 Mar, [address]00565100[place] [id number] Mar, [facility] [address] [id number], [place] [address] Mar, IMMUNIZATIONS No Known Immunizations SOCIAL HISTORY Never Assessed REASON FOR VISIT Insomnia PLAN OF CARE VITAL SIGNS MEDICATIONS Medication Instructions Dosage Frequency Start Date End Date Duration Status Venlafaxine HCl 75MG Orally 2 times a day 1 tablet with food 12h 30 days Active RESULTS No Results PROCEDURES [...]
--- OUTSIDE RECORDS SUMMARY | 2018-06-27 18:44 | XMS REPORT ---
Author Author ISAIAS MOSQUERANYA [facility] Address [address] [place] [address] Care Team Providers Care Engraver Set Up Operator Name Role Phone DEMETRI JASON Unavailable PROBLEMS Type Condition ICD9-CM Code GPO71-IH Code Onset Dates Condition Status SNOMED Code Problem Primary insomnia F51.01 Active 9256549 Problem Renal insufficiency N28.9 Active 525867619 Problem Moderate episode of recurrent major depressive disorder F33.1 Active 97627460 Problem Other chronic pain G89.29 Active 02398381 Problem Acquired hypothyroidism E03.9 Active 911064617 Problem Chronic pain syndrome G89.4 Active 782881473 Problem Difficulty concentrating R41.840 Active 21788364 Problem Fatigue, unspecified type R53.83 Active 91976277 Problem ADHD, predominantly inattentive type F90.0 Active 26377767 Problem Benign essential hypertension I10 Active 3359346 Problem Allergic rhinitis, unspecified allergic rhinitis type J30.9 Active 30149600 Problem Positive urine drug screen R82.5 Active 409949298 Problem Other hyperlipidemia E78.4 Active 97597764 Problem Postablative hypothyroidism E89.0 Active 385270819 Problem Uncomplicated asthma, unspecified asthma severity J45.909 Active 469012534 Problem Major depressive disorder, single episode, unspecified F32.9 Active 11318121 Problem Anxiety F41.9 Active 06509095 Problem Lumbar degenerative disc disease M51.36 Active 50690778 ALLERGIES No Information ENCOUNTERS Encounter Location Date Diagnosis [facility] [address] [facility] [id number] [address] October, [facility] [address] [id number] [address] Sep, [facility] [address] [id number] [address] Sep, [facility] [id number] [place] [address]255- 0513 Sep, [facility] [id number] [place] [address] 42704- 9988 Sep, Postablative hypothyroidism E89.0 ; Pain in left knee M25.562 ; Edema, unspecified type R60.9 ; Multiple joint pain M25.50 and BMI 45.0-49.9, adult Z68.42 [facility] [id number] [place] [address] 55738- 4235 Aug, [facility] [address] [address] 12 Jul, 2017 History of swelling of feet Z87.39 [place] [id number] [place] [address] 97118- 2963 Jul, [facility] [id number] [place] [address] Jul, Pain in left knee M25.562 ; Other chronic pain G89.29 and BMI 45.0-49.9, adult Z68.42 [place] [id number] [place] [address] 66024- 8605 Jun, [place] [id number] [place] [address] 75569- 8199 Jun, [place] [id number] [place] [address] 05707- 7430 May, Primary insomnia F51.01 [facility] [id number] [place] [address] 33014- 7421 Apr, [place] [id number] [place] [address] 74893- 6990 Apr, [facility] [id number] [place] [address] 63200- 6362 Apr, Acute pain of left knee M25.562 ; Renal insufficiency N28.9 ; Fatigue, unspecified type R53.83 ; Postablative hypothyroidism E89.0 and BMI 40.0-44.9, adult Z68.41 [place] [id number] [place] [address] 13774- 4771 Mar, Acute pain of left knee M25.562 [place] [id number] [place] [address] 86275- 3909 Feb, Renal insufficiency N28.9 [place] [id number] [place] [address] 70640- 4392 Feb, [place] [id number] [place] [address] 20590- 8561 Feb, [place] [id number] [place] [address] 08917- 2114 Feb, [place] [id number] [place] [address] 32309- 6591 Feb, Renal insufficiency N28.9 ; ADHD, predominantly inattentive type F90.0 ; Postablative hypothyroidism E89.0 ; Primary insomnia F51.01 ; Difficulty concentrating R41.840 ; History of swelling of feet Z87.39 ; Chronic pain syndrome G89.4 and Moderate episode of recurrent major depressive disorder F33.1 [place] [id number] [place] [address] 18254- 4740 Feb, [place] [id number] [place] [address] 20328- 2877 Feb, [place] [id number] [place] [address] 65342- 7263 Jan, ADHD, predominantly inattentive type F90.0 [place] [id number] [place] [address] 87906- 4955 Jan, Renal insufficiency N28.9 ; Postablative hypothyroidism E89.0 and History of swelling of feet Z87.39 [place] [id number] [place] [address] 95235- 7755 Jan, Chronic pain syndrome G89.4 [facility] [id number] [place] [address] 80740- 6770 Jan, [facility] [id number] [place] [address] 96857- 0286 Jan, Renal insufficiency N28.9 ; Primary insomnia F51.01 ; Difficulty concentrating R41.840 ; Postablative hypothyroidism E89.0 ; History of swelling of feet Z87.39 ; Chronic pain syndrome G89.4 and Moderate episode of recurrent major depressive disorder F33.1 [facility] [id number] [place] [address] 32266- 6583 Jan, [facility] [id number] [place] [address] 61772 [address]4493 Jan, Candidal dermatitis B37.2 [facility] [address] [address] Dec, [facility] [id number] [place] [address] Dec, [facility] [id number] [place] [address] 70210- 0856 Dec, [facility] [id number] [place] [address] 04531- 9573 Dec, Stool color black K92.1 [facility] [id number] [place] [address] 23569- 2607 Dec, Diarrhea of presumed infectious origin A09 [facility] [id number] [place] [address] 23690- 7838 Dec, Right lower quadrant abdominal pain R10.31 and Stool color black K92.1 [facility] [id number] [place] [address] Nov, [facility] [id number] [place] [address] 66634- 0211 Nov, Visit for TB skin test Z11.1 and Pre-employment examination Z02.1 [facility] [address] [address] 03 Nov, 2016 [facility] [id number] [address] October, [facility] [id number] [place] [address] October, [facility] [id number] [place] [address] Aug, [facility] [id number] [place] [address] Aug, Other fatigue R53.83 ; BMI 45.0-49.9, adult Z68.42 ; Edema, unspecified type R60.9 ; Benign essential hypertension I10 and Lumbar degenerative disc disease M51.36 [facility] [id number], [place] [address] 08 Aug, 2016 Skin tag L91.8 [facility] [address] [id number] [place] [address] 06 Aug, 2016 Abnormal laboratory test result R89.9 [facility] [id number], [place] [address] Jul, Insomnia, unspecified type G47.00 [facility] [id number], [place] [address] 20 Jul, 2016 Benign essential hypertension I10 ; BMI 45.0-49.9, adult Z68.42 ; Lumbar degenerative disc disease M51.36 ; Edema, unspecified type R60.9 ; Other fatigue R53.83 and Hypothyroidism, unspecified type E03.9 [facility] [id number], [place] [address] 07 Jul, 2016 [facility] [id number], [place] [address] 06 Jul, 2016 Benign essential hypertension I10 ; BMI 45.0-49.9, adult Z68.42 ; Lumbar degenerative disc disease M51.36 ; Edema, unspecified type R60.9 ; Other fatigue R53.83 and Hypothyroidism, unspecified type E03.9 [facility] [address] [id number], [place] [address] Jun, [facility] [id number] [place] [address] Jun, [facility] [id number] [place] [address] Jun, Benign essential hypertension I10 ; Hypothyroidism, unspecified type E03.9 ; Other fatigue R53.83 ; Midline low back pain without sciatica, unspecified chronicity M54.5 and BMI 45.0-49.9, adult Z68.[address] [id number] Jun, Postablative hypothyroidism E89.0 ; Rhinopharyngitis J00 and Encounter for immunization Z23 [id number] [place] [address] [id number] Jun, [id number] [place] [address] [id number] May, [facility] [id number], [place] [address] May, [id number] [place] [address] [id number] May, [place] [id number] [place] [address] [id number] Apr, Hypothyroidism, unspecified type E03.9 [id number] [place] [address] [id number] Apr, Hypothyroidism, unspecified type E03.9 [facility] [address] [id number] [id number] Apr, [facility] [id number][place] [id number] Mar, Hypothyroidism, unspecified type E03.9 ; Moderate single current episode of major depressive disorder F32.1 ; Other hyperlipidemia E78.4 and Elevated liver function tests R79.89 [facility] [address] [facility] [id number][place] [id number] Feb, [facility] [address]00565100[place] [id number] Dec, Moderate single current episode of major depressive disorder F32.1 [facility] [id number], [place] [id number] Nov, [facility] [id number], [place] [address] Nov, [facility] [address] [id number] [id number] Nov, Hypothyroidism, unspecified type E03.9 ; Other hyperlipidemia E78.4 and Elevated liver function tests R79.89 [facility] [address] [id number][place] [id number] Nov, 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 ; Hypothyroidism, unspecified type E03.9 ; Benign essential hypertension I10 and Uncomplicated asthma, unspecified asthma severity J45.909 [address] [id number] [id number] Nov, 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 ; Hypothyroidism, unspecified type E03.9 ; Benign essential hypertension I10 and Uncomplicated asthma, unspecified asthma severity J45.909 [facility] [address] [id number], [place] [id number] October, [facility] [id number], [place] [id number] October, [facility] [id number][place] [id number] October, Abnormal laboratory test result R89.9 [facility] [id number] [place] [address] [id number] October, Status post bilateral oophorectomy Z90.722 [facility] [address] [place] [address] [id number] Sep, [facility] [address] [place] [address] [id number] Aug, [facility] [address] [place] [address] [id number] Aug, Complex ovarian cyst N83.20 [id number] [place] [address] [id number] Aug, Other acute sinusitis, recurrence not specified J01.80 [facility] [address] [place] [address] [id number] Aug, [facility] [id number] [place] [address] 16455 2545 Jun, [id number] [place] [address] [id number] Jun, [facility] [address] [place] [address] [place] [address] [id number] May, Allergic rhinitis, unspecified allergic rhinitis type J30.9 [facility] [id number] [place] [address] 618308- 6041 May, [facility] [id number] [place] [address] [id number] Mar, [facility] [address] [place] [address] [place] [address] [id number] Mar, [id number] [id number] Jan, Hypothyroidism 244.9 and Cyst in hand 727.43 [id number] [place] [address] [id number] Jan, [id number] [place] [address] [id number] Dec, [id number] [place] [address] [id number] Dec, Acute sinusitis 461.9 and Cough 786.[address] [id number] Dec, Insect bite 919.[address] [place] [address] [id number] Nov, [id number] [place] [address] [id number] Nov, [id number] [place] [address] [id number] Sep, Obesity, morbid 278.01 ; Sleep apnea, obstructive 327.23 and Fatigue due to sleep pattern disturbance 780.79 [id number] [place] [address] 95222- 1476 Sep, [facility] [address] [address]75- 0601 Sep, [id number] [place] [address] [id number] Aug, [facility] [address] 90817- 4923 Aug, [id number] [place] [address] [id number] Jul, [facility] [address] 99724- 6484 Jul, [facility] [address] [facility] [id number] [place] [address]- 1469 Jul, [facility] [address] [id number] [id number] Jul, [facility] [address] [id number], [place] [id number] Jun, [facility] [address] [facility] [id number] [place] [address]- 3803 Jun, [facility] [address] [id number], [place] [id number] May, [facility] [address] [facility] [id number] [place] [address] May, [facility] [address] [facility] [id number] [place] [address]- 0199 Mar, [facility] [address] [facility] [id number] [place] [address]- 2461 Mar, [facility] [address] [facility] [id number] [place] [address]- 4260 Mar, [facility] [address] [id number] [id number] Mar, [facility] [address] [facility] [id number] [place] [address]- 2597 Mar, [facility] [address] [facility] [id number] [place] [address]- 5596 Mar, [facility] [address] [facility] [id number] [place] [address] 6717 Mar, [facility] [address] [id number][place] [id number] Mar, [facility] [address] [facility] [id number] [place] [address]- 9610 Mar, [facility] [address] [facility] [id number] [place] [id number] Mar, [facility] [address] [facility] [id number] [place] [address]- 3722 Mar, IMMUNIZATIONS No Known Immunizations SOCIAL HISTORY [...]
--- OUTSIDE RECORDS SUMMARY | 2018-06-27 18:44 | XMS REPORT ---
Author Author ISAIAS MOSQUERANYA Organization [facility] Address [address] [place] [address] Care Team Providers Care Fruit Culler Name Role Phone DEMETRI JASON Unavailable PROBLEMS Type Condition ICD9-CM Code JAM29-FU Code Onset Dates Condition Status SNOMED Code Problem Primary insomnia F51.01 Active 2020600 Problem Renal insufficiency N28.9 Active 019527277 Problem Moderate episode of recurrent major depressive disorder F33.1 Active 22673418 Problem Other chronic pain G89.29 Active 94413545 Problem Acquired hypothyroidism E03.9 Active 012610682 Problem Chronic pain syndrome G89.4 Active 465211084 Problem Difficulty concentrating R41.840 Active 44455400 Problem Fatigue, unspecified type R53.83 Active 57211063 Problem ADHD, predominantly inattentive type F90.0 Active 07167806 Problem Benign essential hypertension I10 Active 7790497 Problem Allergic rhinitis, unspecified allergic rhinitis type J30.9 Active 28893968 Problem Positive urine drug screen R82.5 Active 075493583 Problem Other hyperlipidemia E78.4 Active 01843618 Problem Postablative hypothyroidism E89.0 Active 982095565 Problem Uncomplicated asthma, unspecified asthma severity J45.909 Active 748591833 Problem Major depressive disorder, single episode, unspecified F32.9 Active 49824965 Problem Anxiety F41.9 Active 20542190 Problem Lumbar degenerative disc disease M51.36 Active 14372393 ALLERGIES No Information ENCOUNTERS Encounter Location Date Diagnosis [facility] [address] [facility] [id number] [address] Sep, [facility] [address] [id number] [address] Sep, [facility] [address] [id number] [address] 09 Apr, 2018 Postablative hypothyroidism E89.0 ; Pain in left knee M25.562 ; Edema, unspecified type R60.9 ; Multiple joint pain M25.50 and BMI 45.0-49.9, adult Z68.42 [facility] [id number] [place] [address] Aug, [facility] [address] [place] [id number] [place] [address] 12 Jul, 2017 History of swelling of feet Z87.39 [facility] [id number] [place] [address]- [address] 05 Jul, 2017 [facility] [address] [address] 05 Jul, 2017 Pain in left knee M25.562 ; Other chronic pain G89.29 and BMI 45.0-49.9, adult Z68.42 [facility] [id number] [place] [address] Jun, [facility] [id number] [place] [address]- 6[address] Jun, [facility] [address] [address] May, Primary insomnia F51.01 [facility] [id number] [place] [address]31- 9664 Apr, [facility] [id number] [place] [address]- 5217 Apr, [facility] [id number] [place] [address]10- 8775 Apr, Acute pain of left knee M25.562 ; Renal insufficiency N28.9 ; Fatigue, unspecified type R53.83 ; Postablative hypothyroidism E89.0 and BMI 40.0-44.9, adult Z68.41 [facility] [id number] [place] [address]- 5[address] Mar, Acute pain of left knee M25.562 [facility] [address] [id number] [address] Feb, Renal insufficiency N28.9 [facility] [id number] [place] [address] 18117- 6787 Feb, [facility] [id number] [place] [address] 65192- 0786 Feb, [facility] [id number] [place] [address] 11609- 2478 Feb, [facility] [id number] [place] [address]60- 1721 Feb, Renal insufficiency N28.9 ; ADHD, predominantly inattentive type F90.0 ; Postablative hypothyroidism E89.0 ; Primary insomnia F51.01 ; Difficulty concentrating R41.840 ; History of swelling of feet Z87.39 ; Chronic pain syndrome G89.4 and Moderate episode of recurrent major depressive disorder F33.1 [facility] [address] [place] [address] 1906 Feb, [facility] [id number] [place] [address]33- 9700 Feb, [facility] [id number] [place] [address] 14604- 9049 Jan, ADHD, predominantly inattentive type F90.0 [facility] [address] [place] [address]1302- 8097 Jan, Renal insufficiency N28.9 ; Postablative hypothyroidism E89.0 and History of swelling of feet Z87.39 [facility] [id number] [place] [address] 33377- 6280 Jan, Chronic pain syndrome G89.4 [facility] [id number] [place] [address] 43151- 0975 Jan, [facility] [id number] [place] [address] 06038- 3251 Jan, Renal insufficiency N28.9 ; Primary insomnia F51.01 ; Difficulty concentrating R41.840 ; Postablative hypothyroidism E89.0 ; History of swelling of feet Z87.39 ; Chronic pain syndrome G89.4 and Moderate episode of recurrent major depressive disorder F33.1 [facility] [id number] [place] [address] 06216- 9925 Jan, [facility] [id number] [place] [address] Jan, Candidal dermatitis B37.2 [facility] [address] [address]00 Dec, [facility] [id number] [place] [address] Dec, [facility] [id number] [place] [address] 75279- 1521 Dec, [facility] [id number] [place] [address] 47274- 1020 Dec, Stool color black K92.1 [facility] [id number] [place] [address] 79621- 2701 Dec, Diarrhea of presumed infectious origin A09 [facility] [id number] [place] [address] 71555- 4101 Dec, Right lower quadrant abdominal pain R10.31 and Stool color black K92.1 [facility] [id number] [place] [address] Nov, [facility] [id number] [place] [address] 65137- 6409 Nov, Visit for TB skin test Z11.1 and Pre-employment examination Z02.1 [facility] [id number] [place] [address] 78746- 1423 Nov, [facility] [address] [id number], [place] [address] October, [facility] [id number] [place] [address] October, [facility] [id number] [place] [address] Aug, [facility] [address] [address] Aug, Other fatigue R53.83 ; BMI 45.0-49.9, adult Z68.42 ; Edema, unspecified type R60.9 ; Benign essential hypertension I10 and Lumbar degenerative disc disease M51.36 [facility] [id number] [place] [address] Aug, Skin tag L91.8 [facility] [address] [address] Aug, Abnormal laboratory test result R89.9 [facility] [id number] [place] [address] Jul, Insomnia, unspecified type G47.00 [facility] [id number] [place] [address] 20 Jul, 2016 Benign essential hypertension I10 ; BMI 45.0-49.9, adult Z68.42 ; Lumbar degenerative disc disease M51.36 ; Edema, unspecified type R60.9 ; Other fatigue R53.83 and Hypothyroidism, unspecified type E03.9 [facility] [id number] [place] [address] Jul, [facility] [id number] [place] [address] Jul, Benign essential hypertension I10 ; BMI 45.0-49.9, adult Z68.42 ; Lumbar degenerative disc disease M51.36 ; Edema, unspecified type R60.9 ; Other fatigue R53.83 and Hypothyroidism, unspecified type E03.9 [facility] [id number], [place] [address] Jun, [facility] [address] [id number], [place] [address] Jun, [facility] [id number] [place] [address] Jun, Benign essential hypertension I10 ; Hypothyroidism, unspecified type E03.9 ; Other fatigue R53.83 ; Midline low back pain without sciatica, unspecified chronicity M54.5 and BMI 45.0-49.9, adult Z68.[address] [id number] Jun, Postablative hypothyroidism E89.0 ; Rhinopharyngitis J00 and Encounter for immunization Z23 [address] [id number] Jun, [facility] [address] [place] [id number] May, [facility] [id number], [place] [address] May, [facility] [address] [place] [id number] [place] [id number] May, [facility] [address] [place] [phone] Apr, Hypothyroidism, unspecified type E03.9 [id number] [place] [address] [id number] Apr, Hypothyroidism, unspecified type E03.9 [address] [id number] [place] [address] [id number] Apr, [facility] [address] [place] [id number] Mar, Hypothyroidism, unspecified type E03.9 ; Moderate single current episode of major depressive disorder F32.1 ; Other hyperlipidemia E78.4 and Elevated liver function tests R79.89 [facility] [address] [facility] [id number] [id number] Feb, [facility] [address]65[place] [id number] Dec, Moderate single current episode of major depressive disorder F32.[address] [facility] [id number][place] [id number] Nov, [facility] [id number], [place] [id number] Nov, [facility] [address] [id number] [id number] Nov, Hypothyroidism, unspecified type E03.9 ; Other hyperlipidemia E78.4 and Elevated liver function tests R79.[address] 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 [address] [id number][place] [id number] October, [facility] [id number], [place] [id number] October, [facility] [id number], [place] [id number] October, Abnormal laboratory test result R89.9 [id number] [place] [id number] October, Status post bilateral oophorectomy Z90.[id number] [place] [address] [id number] Sep, [facility] [address] [place] [id number] [place] [id number] Aug, [address] [id number] Aug, Complex ovarian cyst N83.[address] [id number] Aug, Other acute sinusitis, recurrence not specified J01.[id number] [place] [address] [id number] Aug, [address] [address]46 Jun, [address] [id number] [place] [address] [id number] Jun, [id number] [place] [address] [id number] May, Allergic rhinitis, unspecified allergic rhinitis type J30.9 [address] [address]40 May, [id number] [place] [address] [id number] Mar, [id number] [place] [address] [id number] Mar, [address] [id number] Jan, Hypothyroidism 244.9 and Cyst in hand 727.[id number] [place] [address] [id number] Jan, [facility] [address]00565100[place] [id number] Dec, [facility] [address] [place] [id number] [place] [address] [id number] Dec, Acute sinusitis 461.9 and Cough 786.[id number] [place] [address] [id number] Dec, Insect bite 919.4 [address] [id number] [id number] Nov, [address] [place] [address] [id number] Nov, [address] [id number] [place] [address] [id number] Sep, Obesity, morbid 278.01 ; Sleep apnea, obstructive 327.23 and Fatigue due to sleep pattern disturbance 780.79 [address] [id number] [place] [address] 98892- 0776 Sep, [facility] [address] [address]- [address]806 Sep, [id number] [place] [address] [id number] Aug, [facility] [address] [address] 2546 Aug, [address] [place] [address] [id number] Jul, [facility] [address] [address] 2546 Jul, [facility] [id number] [place] [address] 90274- 2546 Jul, [id number] [place] [address] [id number] Jul, [facility] [id number], [place] [id number] Jun, [facility] [address]00565100[place] [address]- 9846 Jun, [facility] [id number], [place] [id number] May, [facility] [address] [id number] [address]- 6[address] May, [facility] [address] [id number] [address]- 6216 Mar, [facility] [id number] [place] [address] 06562- 4506 Mar, [facility] [address]65100[place] [address]- [address] Mar, [facility] [id number], [place] [id number] Mar, [facility] [address]65100[place] [address]- [address]498 Mar, [facility] [address]00565100[place] [address]- 1854 Mar, [facility] [address]00565100[place] [address]- 1465 Mar, [facility] [id number], [place] [id number] Mar, [facility] [address]65100[place] [address]- [address]77 Mar, [facility] [id number], [place] [id number] Mar, [facility] [address]00565100[place] [address]- [address] Mar, IMMUNIZATIONS No Known Immunizations SOCIAL HISTORY [...] History hernia Medical History depression [facility] Medical History [...]
--- OUTSIDE RECORDS SUMMARY | 2018-06-27 18:45 | XMS REPORT ---
Author Author JUVE MARCUS Organization [facility] Address [address] [address] Care Team Providers Care Fund Controller Name Role Phone JUVE MARCUS Unavailable PROBLEMS Type Condition ICD9-CM Code ADM55-JE Code Onset Dates Condition Status SNOMED Code Problem Postablative hypothyroidism E89.0 Active 255093414 Problem Lumbar degenerative disc disease M51.36 Active 76368731 Problem Major depressive disorder, single episode, unspecified F32.9 Active 65326442 Problem ADHD, predominantly inattentive type F90.0 Active 33072582 Problem Primary insomnia F51.01 Active 8587031 Problem Difficulty concentrating R41.840 Active 59235047 Problem Moderate episode of recurrent major depressive disorder F33.1 Active 72034525 Problem Chronic pain syndrome G89.4 Active 098217629 Problem Renal insufficiency N28.9 Active 761756768 Problem Allergic rhinitis, unspecified allergic rhinitis type J30.9 Active 74284707 Problem Uncomplicated asthma, unspecified asthma severity J45.909 Active 486123414 Problem Positive urine drug screen R82.5 Active 592013234 Problem Anxiety F41.9 Active 10152802 Problem Benign essential hypertension I10 Active 7259132 Problem Other hyperlipidemia E78.4 Active 10303575 ALLERGIES No Information SOCIAL HISTORY Never Assessed [...]
--- OUTSIDE RECORDS SUMMARY | 2018-06-27 18:45 | XMS REPORT ---
Author Author ISAIAS MOSQUERANYA Organization [facility] Address [address] [place] [address] Care Team Providers Care Chief Business Officer Name Role Phone DEMETRI JASON Unavailable PROBLEMS Type Condition ICD9-CM Code [id number] Code Onset Dates Condition Status SNOMED Code Problem Primary insomnia F51.01 Active 9935890 Problem Renal insufficiency N28.9 Active 635728393 Problem Moderate episode of recurrent major depressive disorder F33.1 Active 86398009 Problem Other chronic pain G89.29 Active 75550086 Problem Acquired hypothyroidism E03.9 Active 132616404 Problem Chronic pain syndrome G89.4 Active 150877248 Problem Difficulty concentrating R41.840 Active 37449499 Problem Fatigue, unspecified type R53.83 Active 45318927 Problem ADHD, predominantly inattentive type F90.0 Active 01464482 Problem Benign essential hypertension I10 Active 5350104 Problem Allergic rhinitis, unspecified allergic rhinitis type J30.9 Active 70704530 Problem Positive urine drug screen R82.5 Active 418094936 Problem Other hyperlipidemia E78.4 Active 28236484 Problem Postablative hypothyroidism E89.0 Active 689426490 Problem Uncomplicated asthma, unspecified asthma severity J45.909 Active 813921891 Problem Major depressive disorder, single episode, unspecified F32.9 Active 46230545 Problem Anxiety F41.9 Active 34565545 Problem Lumbar degenerative disc disease M51.36 Active 11856379 ALLERGIES No Information ENCOUNTERS Encounter Location Date Diagnosis [facility] [address] [facility] [id number] [address] Sep, [facility] [id number] [address] Sep, [facility] [id number] [address] 09 Apr, 2018 Postablative hypothyroidism E89.0 ; Pain in left knee M25.562 ; Edema, unspecified type R60.9 ; Multiple joint pain M25.50 and BMI 45.0-49.9, adult Z68.42 [facility] [id number] [place] [address] Aug, [facility] [address] [place] [id number] [place] [address] 12 Jul, 2017 History of swelling of feet Z87.39 [facility] [id number] [place] [address] 05 Jul, 2017 [facility] [address] [address] 05 Jul, 2017 Pain in left knee M25.562 ; Other chronic pain G89.29 and BMI 45.0-49.9, adult Z68.42 [facility] [id number] [place] [address]678[address] Jun, [facility] [id number] [place] [address]53- 1761 Jun, [facility] [address] [address] May, Primary insomnia F51.01 [facility] [id number] [place] [address] 5[address] Apr, [facility] [id number] [place] [address]38- [address] Apr, [facility] [id number] [place] [address] 4567 Apr, Acute pain of left knee M25.562 ; Renal insufficiency N28.9 ; Fatigue, unspecified type R53.83 ; Postablative hypothyroidism E89.0 and BMI 40.0-44.9, adult Z68.41 [facility] [id number] [place] [address] 4726 Mar, Acute pain of left knee M25.562 [facility] [id number] [address] Feb, Renal insufficiency N28.9 [facility] [id number] [place] [address]47[address] Feb, [facility] [id number] [place] [address] 83737- 2574 Feb, [facility] [id number] [place] [address]- 49[address] Feb, [facility] [id number] [place] [address]77- 7316 Feb, Renal insufficiency N28.9 ; ADHD, predominantly inattentive type F90.0 ; Postablative hypothyroidism E89.0 ; Primary insomnia F51.01 ; Difficulty concentrating R41.840 ; History of swelling of feet Z87.39 ; Chronic pain syndrome G89.4 and Moderate episode of recurrent major depressive disorder F33.1 [facility] [address] [place] [address]2593- 74[address] Feb, [facility] [id number] [place] [address] 69036- 4318 Feb, [facility] [id number] [place] [address]3470- 4488 Jan, ADHD, predominantly inattentive type F90.0 [facility] [address] [place] [address]172- 1605 Jan, Renal insufficiency N28.9 ; Postablative hypothyroidism E89.0 and History of swelling of feet Z87.39 [facility] [id number] [place] [address]361- 5734 Jan, Chronic pain syndrome G89.4 [facility] [id number] [place] [address]- 1996 Jan, [facility] [id number] [place] [address] 16084- 0134 Jan, Renal insufficiency N28.9 ; Primary insomnia F51.01 ; Difficulty concentrating R41.840 ; Postablative hypothyroidism E89.0 ; History of swelling of feet Z87.39 ; Chronic pain syndrome G89.4 and Moderate episode of recurrent major depressive disorder F33.1 [facility] [id number] [place] [address]49- 3917 Jan, [facility] [id number] [place] [address] Jan, Candidal dermatitis B37.2 [facility] [address] [address] Dec, [facility] [id number] [place] [address] Dec, [facility] [id number] [place] [address] 77742- 3808 Dec, [facility] [id number] [place] [address] 93305- 4308 Dec, Stool color black K92.1 [facility] [id number] [place] [address] 73871- 3584 Dec, Diarrhea of presumed infectious origin A09 [facility] [id number] [place] [address] 02297- 4222 Dec, Right lower quadrant abdominal pain R10.31 and Stool color black K92.1 [facility] [id number] [place] [address] Nov, [facility] [id number] [place] [address] 58486- 9797 Nov, Visit for TB skin test Z11.1 and Pre-employment examination Z02.1 [facility] [id number] [place] [address] 31615- 9197 Nov, [facility] [address] [id number] [address] October, [facility] [id number] [place] [address] October, [facility] [id number] [place] [address] Aug, [facility] [address] [address] Aug, Other fatigue R53.83 ; BMI 45.0-49.9, adult Z68.42 ; Edema, unspecified type R60.9 ; Benign essential hypertension I10 and Lumbar degenerative disc disease M51.36 [facility] [id number] [place] [address] Aug, Skin tag L91.8 [facility] [address] [address] Aug, Abnormal laboratory test result R89.9 [facility] [id number] [place] [address] Jul, Insomnia, unspecified type G47.00 [facility] [id number] [place] [address] 20 Jul, 2016 Benign essential hypertension I10 ; BMI 45.0-49.9, adult Z68.42 ; Lumbar degenerative disc disease M51.36 ; Edema, unspecified type R60.9 ; Other fatigue R53.83 and Hypothyroidism, unspecified type E03.9 [facility] [id number] [place] [address] Jul, [facility] [id number] [place] [address] Jul, Benign essential hypertension I10 ; BMI 45.0-49.9, adult Z68.42 ; Lumbar degenerative disc disease M51.36 ; Edema, unspecified type R60.9 ; Other fatigue R53.83 and Hypothyroidism, unspecified type E03.9 [facility] [id number] [address] Jun, [facility] [address] [id number], [place] [address] Jun, [facility] [id number] [place] [address] Jun, Benign essential hypertension I10 ; Hypothyroidism, unspecified type E03.9 ; Other fatigue R53.83 ; Midline low back pain without sciatica, unspecified chronicity M54.5 and BMI 45.0-49.9, adult Z68.[address] [id number] Jun, Postablative hypothyroidism E89.0 ; Rhinopharyngitis J00 and Encounter for immunization Z23 [address] [id number] Jun, [facility] [address] [place] [address] [phone] May, [facility] [id number], [place] [address] May, [facility] [address] [place] [id number] [place] [address] [id number] May, [facility] [address] [place] [address] [id number] Apr, Hypothyroidism, unspecified type E03.9 [id number] [place] [address] [id number] Apr, Hypothyroidism, unspecified type E03.9 [place] [address] [id number] [place] [address] [id number] Apr, [facility] [address] [place] [address] [id number] Mar, Hypothyroidism, unspecified type E03.9 ; Moderate single current episode of major depressive disorder F32.1 ; Other hyperlipidemia E78.4 and Elevated liver function tests R79.89 [facility] [address] [facility] [id number] [phone] Feb, [facility] [address] [id number] Dec, Moderate single current episode of major depressive disorder F32.1 [facility] [id number][place] [id number] Nov, [facility] [id number][place] [phone] Nov, [facility] [address] [id number] [phone] Nov, Hypothyroidism, unspecified type E03.9 ; Other hyperlipidemia E78.4 and Elevated liver function tests R79.89 [facility] [id number][place] [id number] Nov, 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 ; Hypothyroidism, unspecified type E03.9 ; Benign essential hypertension I10 and Uncomplicated asthma, unspecified asthma severity J45.909 [address] [id number] [id number] Nov, 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 ; Hypothyroidism, unspecified type E03.9 ; Benign essential hypertension I10 and Uncomplicated asthma, unspecified asthma severity J45.909 [facility] [address] [id number] [id number] October, [facility] [id number][place] [id number] October, [facility] [id number][place] [id number] October, Abnormal laboratory test result R89.9 [id number] [place] [address] [id number] October, Status post bilateral oophorectomy Z90.722 [address] [place] [address] [id number] Sep, [facility] [address] [place] [id number] [place] [id number] Aug, [address] [id number] Aug, Complex ovarian cyst N83.[address] [id number] Aug, Other acute sinusitis, recurrence not specified J01.80 [id number] [place] [address] [id number] Aug, [place] [place] [address] [address]46 Jun, [id number] [place] [address] [id number] Jun, [id number] [place] [address] [id number] May, Allergic rhinitis, unspecified allergic rhinitis type J30.9 [address] [place] [address] [address]43 May, [address] [place] [address] [id number] Mar, [id number] [place] [address] [id number] Mar, [address] [id number] Jan, Hypothyroidism 244.9 and Cyst in hand 727.43 [address] [place] [address] [id number] Jan, [facility] [address]65[place] [id number] Dec, [facility] [address] [place] [id number] [place] [address] [id number] Dec, Acute sinusitis 461.9 and Cough 786.[id number] [place] [address] [id number] Dec, Insect bite 919.4 [id number] [id number] Nov, [address] [place] [address] [id number] Nov, [address] [place] [address] [id number] Sep, Obesity, morbid 278.01 ; Sleep apnea, obstructive 327.23 and Fatigue due to sleep pattern disturbance 780.79 [place] [id number] [place] [address]1864- [address]26 Sep, [facility] [address] [address] Sep, [id number] [place] [address] [id number] Aug, [facility] [address] [address]46 Aug, [address] [place] [address] [id number] Jul, [facility] [address] [address]46 Jul, [facility] [id number] [place] [address] 09009- 2546 Jul, [id number] [place] [address] [id number] Jul, [facility] [id number][place] [id number] Jun, [facility] [address] [address]- [address] Jun, [facility] [id number][place] [id number] May, [facility] [id number] [address] May, [facility] [id number] [address]- [address] Mar, [facility] [id number] [place] [address] 87899- 6641 Mar, [facility] [address]65100[place] [address]- 7421 Mar, [facility] [id number], [place] [id number] Mar, [facility] [address] Mar, [facility] [address] [address]- 1816 Mar, [facility] [address]65100[place] [address]- [address] Mar, [facility] [id number], [place] [id number] Mar, [facility] [address] [address]- [address] Mar, [facility] [id number], [place] [id number] Mar, [facility] [address] [address] Mar, IMMUNIZATIONS No Known Immunizations SOCIAL HISTORY Never Assessed REASON FOR VISIT Other PLAN OF CARE VITAL SIGNS MEDICATIONS Medication Instructions Dosage Frequency Start Date End Date Duration Status Gabapentin 300 MG Orally 3 times a day 1 capsule 8h May, Active Meloxicam 15 mg Orally Once a day 1 tablet 24h Jan, 30 day(s) Active RESULTS No Results PROCEDURES No Known procedures INSTRUCTIONS MEDICATIONS ADMINISTERED No Known Medications MEDICAL (GENERAL) HISTORY Type Description Date Medical History Insomnia Medical History Lump or mass in breast Medical History anxiety Medical History obesity Medical History Hypothyroidism Medical History hypertension Medical History asthma Medical History hernia Medical History depression [facility] Medical History [...]
--- OUTSIDE RECORDS SUMMARY | 2018-06-27 18:45 | XMS REPORT ---
Author Author JUVE MARCUS Organization [facility] Address [address] [address] Care Team Providers Care Drive Tester Name Role Phone JUVE MARCUS Unavailable PROBLEMS Type Condition ICD9-CM Code [id number] Code Onset Dates Condition Status SNOMED Code Problem Postablative hypothyroidism E89.0 Active 411403756 Problem Lumbar degenerative disc disease M51.36 Active 96240004 Problem Major depressive disorder, single episode, unspecified F32.9 Active 64634878 Problem ADHD, predominantly inattentive type F90.0 Active 18778127 Problem Primary insomnia F51.01 Active 8262625 Problem Difficulty concentrating R41.840 Active 05002172 Problem Moderate episode of recurrent major depressive disorder F33.1 Active 73713662 Problem Chronic pain syndrome G89.4 Active 414911537 Problem Renal insufficiency N28.9 Active 400471494 Problem Allergic rhinitis, unspecified allergic rhinitis type J30.9 Active 57344899 Problem Uncomplicated asthma, unspecified asthma severity J45.909 Active 662285316 Problem Positive urine drug screen R82.5 Active 759654675 Problem Anxiety F41.9 Active 00481925 Problem Benign essential hypertension I10 Active 8233958 Problem Other hyperlipidemia E78.4 Active 06539137 ALLERGIES Substance Reaction Event Type Date Status Tetracycline HCl nausea Drug Allergy Aug, Active Sulfamethoxazole-Trimethoprim hives Drug Allergy Aug, Active SOCIAL HISTORY Never Assessed PLAN OF CARE Activity Details Follow Up schedule with Sandu for derm procedure, pending appointment tomorrow Reason: VITAL SIGNS Height 67.5 in 2016-09-02 Weight 296 lbs 2016-09-02 Temperature 97 degrees Fahrenheit 2016-09-02 Heart Rate 92 bpm 2016-09-02 Respiratory Rate 16 2016-09-02 BMI 45.67 kg/m2 2016-09-02 Blood pressure systolic 128 mmHg 2016-09-02 Blood pressure diastolic 70 mmHg 2016-09-02 MEDICATIONS Medication Instructions Dosage Frequency Start Date End Date Duration Status Nebulizer 2 times per day PRN for SOB; Needed for lifetime Jul, Active Flonase Allergy Relief 50 MCG/ACT Nasally Once a day 1 spray in each nostril 24h Jun, 30 day(s) Active Albuterol Sulfate 2.5 mg /3 mL (0.083 %) 1 Each by Inhalation route every 4 hours for cough and wheeze PRN for wheezing or cough Jul, Active Bentyl 10 mg Orally Four times a day 1 capsule 6h Nov, Active Alprazolam 0.5 mg take 1 tablet by Oral route 1 time per day Mar, Active Spironolactone 50 mg Orally Twice a day 1 tablet 12h Aug, 30 day(s) Active Diclofenac Potassium 50 mg Orally Twice a day 1 tablet 12h 30 day(s) Active Pravastatin Sodium 40 mg Orally Once a day 1 tablet 24h 17 Nov, 2015 Active Venlafaxine HCl 75MG Orally Once a day 1 tablet with food 24h 30 Active Gabapentin 100 MG Orally 3 times a day as directed 8h May, Active Vistaril 25 MG Orally at bedtime as needed 1 capsule Active Venlafaxine HCl 75 MG 1 tablet with food twice a day Orally Active Flonase 50 MCG/ACT Nasally Once a day 1 spray in each nostril 24h May, Active Sudafed 30 MG Orally 3 times a day 1 tablet as needed 8h Jun, 10 days Active Ventolin HFA 90 mcg/actuation inhale 2-4 puff by Inhalation route as needed every 4 hours PRN for cough or wheeze Jul, Active Furosemide 40 mg Orally Once a day 1 tablet 24h Jul, 30 day(s) Active RESULTS No Results PROCEDURES Procedure Date Ordered Result Body Site REMOVAL OF SKIN TAGS September 02, 2016 IMMUNIZATIONS No Known Immunizations MEDICAL (GENERAL) HISTORY [...]
--- OUTSIDE RECORDS SUMMARY | 2018-06-27 18:46 | XMS REPORT | Continuity of Care Document ---
Author Author [facility] Organization [facility] Address [facility] [address] [place] [address] Phone Unavailable Support Name Relationship Address Phone AMADOR LEONARD DO Caregiver [address] [place] [address] Ranulfo Alma Grant/Elberthenny Storm Caregiver [address], [place] [address] [employer] Next Of Kin [address] [place] [address] Insurance Providers Payer Name Policy Number Subscriber Name Relationship Self Pay Insurance Zelda Nobles 18 Self / Same As Patient Advance Directives Directive Response Recorded Date/Time Do you have an Advanced Directive? No 07/20/05 10:33am Advance Directives No 10/07/15 12:54pm Living Will No 10/07/15 12:54pm Health Care Proxy No 10/12/15 2:08pm Power of Director Of Sales Marketing for Health Care No 10/07/15 12:54pm Organ, Tissue, or Eye Donor No 10/07/15 12:54pm Do you have a signed organ donor card? No 09/23/15 7:00pm Chief Complaint and Reason for Visit Chief Complaint ABDOMINAL PAIN Reason for Visit Abdominal pain Problems Active Problems Medical Problem Onset Date Status Abdominal pain Unknown Acute Ovarian anomaly Unknown Acute Ovarian mass, left Unknown Acute Ovarian mass, right Unknown Acute Postoperative pain Unknown Acute Postoperative [...] 1 Each 1 Udtab Oral Daily 10/07/15 Ethan-3/Dha/Epa/Dpa/Fish Oil 1 Each 1 Cap Oral Daily 10/07/15 Cholecalciferol 5 000 5,000 Unit Oral Daily 10/07/15 Bisacodyl 10 Mg/Supp.rect 10 Mg Rectal As Needed as needed for Constipation 30 As needed for constipation 10/12/15 Magnesium Hydroxide 400 Mg/5 Ml 30 Ml Oral Daily as needed for Constipation 1 10/12/15 Past Home Medications Medication Directions Ordered Status [...] 09/29/10 Discontinued [Celexa] , Daily 09/29/10 Discontinued [Ethan-3] , 09/29/10 Discontinued [Multi-Vitamin] , 09/29/10 Discontinued [...] Former smoker 10/07/2015 12:54pm Alcohol Use none 10/12/2015 4:30pm Drug Use none 10/12/2015 4:30pm Sexual History Heterosexual 01/17/2012 8:39pm Query Response Start Date Stop Date Smoking Status Former smoker Hospital Discharge Instructions No hospital discharge instructions. Plan of Care Discharge Date 10/12/15 6:30pm Disposition 01 HOME, USP,ASSISTED LIVING Condition at Discharge Stable Instructions/Education Provided Abdominal Pain (ED) Prescriptions See Medication Section Referrals Mina Manning M.D. - 2-3 Days Functional Status Query Response Date Recorded Patient Behavior Appropriate October 12, 2015 2:20pm Allergies, Adverse Reactions, Alerts Allergen Type Severity Reaction Status Last Updated Penicillin Allergy Unknown Active 09/30/15 SULFA (SULFONAMIDE ANTIBIOTICS) Allergy Unknown VOMITING Active 09/30/15 Doxycycline Allergy Unknown Active 09/30/15 Immunizations Name Given Type Hx Diphtheria, Pertussis, Tetanus Vaccination Unknown Historical Hx Influenza Vaccination Yes Historical Hx Pneumococcal Vaccination No Historical Vital Signs Acute Vital Signs Vital Response Date/Time Temperature (Fahrenheit) 98.0 degrees F (97.6 - 99.5) 10/12/2015 6:30pm Temperature Source Temporal Artery 10/12/2015 6:30pm Pulse Rate (adult) 88 bpm (60 - 90) 10/12/2015 6:30pm Respiratory Rate 18 bpm (12 - 24) 10/12/2015 6:30pm Blood Pressure 128/72 mm Hg 10/12/2015 6:30pm O2 Sat by Pulse Oximetry 98 % (90 - 100) 10/12/2015 6:30pm Oxygen Delivery Method 10/12/2015 6:30pm Oxygen Flow Rate 2.0 L/min 10/09/2015 8:50pm Pain Intensity 6 10/10/2015 11:57am Pain Intensity 8 10/04/2015 10:00am Pain Location Body Site Modifier 10/12/2015 4:55pm Pain Description 10/12/2015 4:55pm Height 5 ft 5 in Weight 275 lb Body Mass Index 45.0 kg/m^2 Results Laboratory Results Test Name Result [...] 09/23/2015 9:23pm Blood Urea Nitrogen 16 mg/dL 718 09/23/2015 9:00pm 09/23/2015 9:23pm Creatinine 0.7 mg/dL [...] 09/23/2015 11:00pm 09/23/2015 11: 13pm Urine Specific [place] 1.010 1.010-1.025 09/23/2015 11:00pm 2015 11:13pm Urine [...] of abdomen and pelvis with contrast Completed 10/12/15 AMADOR LEONARD DO Encounters Encounter Location Arrival/Admit Date Discharge/Depart Date Attending Provider Departed Emergency Room [place] 10/12/15 2:09pm 10/12/15 6:30pm AMADOR LEONARD DO Discharged Inpatient [place] 10/07/15 3:58pm 10/10/15 7:25pm Mina Manning M.D. Discharged Inpatient [place] 09/27/15 3:01pm 10/04/15 6:48pm Mina Manning M.D. Departed Emergency Room [place] 09/23/15 7:01pm 09/24/15 1:24am ELAINA MCCORMACK MD Recent Diagnosis
--- OUTSIDE RECORDS SUMMARY | 2018-06-27 18:48 | XMS REPORT | Continuity of Care Document ---
Author Author [facility] Organization [facility] Address [facility] [address] [place] [address] Phone Unavailable Support Name Relationship Address Phone Mina Manning M.D. Caregiver [address] [place] [address] Alma Winchester/Nahid Storm Caregiver [address] [place] [address] HANNAH RASCON MD Caregiver [address] [place] [address] [employer] Next Of Kin [address] [place] [id number] Insurance Providers Payer Name Policy Number Subscriber Name Relationship Self Pay Insurance Zelda Nobles 18 Self / Same As Patient Advance Directives Directive Response Recorded Date/Time Do you have an Advanced Directive? No 07/20/05 10:33am Advance Directives No 10/07/15 12:54pm Living Will No 10/07/15 12:54pm Health Care Proxy No 10/07/15 12:54pm Power of Cafe Team Member for Health Care No 10/07/15 12:54pm Organ, Tissue, or Eye Donor No 10/07/15 12:54pm Do you have a signed organ donor card? No 09/23/15 7:00pm Chief Complaint and Reason for Visit Chief Complaint WOUND DEHISCENCE Reason for Visit Ovarian anomaly Postoperative pain Postoperative vaginal bleeding Problems Active Problems Medical Problem Onset Date [...] Sodium 100 Mcg 100 Mcg Oral Daily 07/31/12 Amlodipine Besylate 5 Mg 5 Mg Oral Daily 30 09/27/15 Alprazolam 0.5 Mg 0.5 Mg Oral Every 8 Hrs As Needed Anxiety 30 Gabapentin 300 Mg 300 Mg Oral As Needed For Pain 30 10/07/15 Ubidecarenone 400 Mg 400 Mg Oral Daily 10/07/15 Folic Acid/Mv,Fe,Other Min* 1 Each 1 Udtab Oral Daily 10/07/15 Chloe-3/Dha/Epa/Dpa/Fish Oil 1 Each 1 Cap Oral Daily 10/07/15 Cholecalciferol 5 000 5,000 Unit Oral Daily 10/07/15 Past Home Medications Medication Directions Ordered Status [...] 09/29/10 Discontinued [Celexa] , Daily 09/29/10 Discontinued [Chloe-3] , 09/29/10 Discontinued [Multi-Vitamin] , 09/29/10 Discontinued [...] Former smoker 10/07/2015 12:54pm Alcohol Use none 10/07/2015 4:11am Drug Use none 10/07/2015 4:11am Sexual History Heterosexual 01/17/2012 8:39pm Query Response Start Date Stop Date Smoking Status Former smoker Hospital Discharge Instructions Discharge Instructions Provider Instructions Make Appointment with: Dr. Manning [phone] Follow Up In: Wednesday Make Additional Appt with: Dr. Manning [phone] Follow Up In: 1 Week Diet: Advance as tolerated Activity Restrictions: As Tolerated Lifting Restrictions: No > 15 lbs. Driving Restrictions: Do Not Drive for 4 Wks Smoking Cessation If you are a smoker, the following is recommended: Stop all tobacco use; for help quitting, please call [phone]. Wound Care: keep wound clean Notify Physician If: Fever Greater 100.5 F, Red or Draining Wound, Excessive Bleeding Other Special Instructions: no Additional Instructions: no Nursing Instructions Flu Vaccine Received this Visit: Comment: FALL 2014 Pneumonia Vaccine Received this Visit: No Education #1 Patient specific education materials provided?: Yes Patient Request Electronic Discharge Instructions: No Patient Received Electronic Discharge Instructions: No Patient Health Summary printed/downloaded for the patient?: Yes Plan of Care Discharge Date 10/10/15 7:25pm Disposition 01 HOME, GROUP HOME,ASSISTED LIVING Instructions/Education Provided Postop pain (ED) Postoperative Bleeding (ED) Prescriptions See Medication Section Care Plan and Goals See Discharge Instructions Section Functional Status Query Response Date Recorded [place] Coma Scale Total 15 October 10, 2015 8:19am Patient Behavior Anxious Restless October 10, 2015 8:19am Allergies, Adverse Reactions, Alerts Allergen Type Severity Reaction Status Last Updated Penicillin Allergy Unknown Active 09/30/15 SULFA (SULFONAMIDE ANTIBIOTICS) Allergy Unknown VOMITING Active 09/30/15 Doxycycline Allergy Unknown Active 09/30/15 Immunizations Name Given Type Hx Diphtheria, Pertussis, Tetanus Vaccination Up To Date Historical Hx Influenza Vaccination Y FALL 2014 Historical Hx Pneumococcal Vaccination No Historical Vital Signs Acute Vital Signs Vital Response Date/Time Temperature (Fahrenheit) 97.5 degrees F (97.6 - 99.5) 10/10/2015 3:01pm Temperature Source Temporal Artery 10/10/2015 3:01pm Pulse Rate (adult) 87 bpm (60 - 90) 10/10/2015 3:01pm Respiratory Rate 20 bpm (12 - 24) 10/10/2015 3:01pm Blood Pressure 146/73 mm Hg 10/10/2015 3:01pm O2 Sat by Pulse Oximetry 92 % (90 - 100) 10/10/2015 3:01pm Oxygen Delivery Method 10/07/2015 6:05am Oxygen Flow Rate 2.0 L/min 10/09/2015 8:50pm Pain Intensity 6 10/10/2015 11:57am Pain Intensity 8 10/04/2015 10:00am Pain Location Body Site Modifier 10/10/2015 5:56am Pain Description 10/10/2015 5:56am Height 5 ft 7 in Weight 279 lb Body Mass Index 43.0 kg/m^2 Results Laboratory Results Test Name Result [...] 09/23/2015 11:00pm 09/23/2015 11: 13pm Urine Specific [place] 1.010 1.010-1.025 09/23/2015 11:00pm 2015 11:13pm Urine [...] Completed 09/30/15 Yolette Sparks M.D., SUSAN CRNA Total abdominal hysterectomy and bilateral salpingo-oophorectomy Completed Mina Manning M.D. Computed tomography of abdomen and pelvis with contrast Active 09/23/15 ELAINA MCCORMACK MD Abd Mult Views/Kub&Up&/Or Decu Active 09/27/15 YOLETTE VINCENT D.O. Complete ultrasound of pelvis Active 09/27/15 YOLETTE VINCENT D.O. US transvaginal Active 09/27/15 YOLTETE VINCENT D.O. Computed tomography of abdomen and pelvis with contrast Active 10/07/15 HANNAH RASCON MD Encounters Encounter Location Arrival/Admit Date Discharge/Depart Date Attending Provider Discharged Inpatient [place] 10/07/15 3:58pm 10/10/15 7:25pm Mina Manning M.D. Discharged Inpatient [place] 09/27/15 3:01pm 10/04/15 6:48pm Mina Manning M.D. Departed Emergency Room [place] 09/23/15 7:01pm 09/24/15 1:24am ELAINA MCCORMACK MD Recent Diagnosis Ovarian anomaly Postoperative pain Postoperative vaginal bleeding
--- OUTSIDE RECORDS SUMMARY | 2018-06-27 18:49 | XMS REPORT | Continuity of Care Document ---
Author Author [facility] Address Unknown Phone Unavailable Allergies Active Description Code Type Severity Reaction Onset Reported/Identified Relationship to Patient Clinical Status Yes SULFA Drug Allergy N/A N/A Yes TETRACYCLINE [id number] Drug Allergy N/A N/A Yes Compazine Drug N/A Agitation Yes hydrOXYzine Drug N/A Agitation Yes sulfa drugs Drug N/A N Yes Sulfa (Sulfonamide Antibiotics) Drug Allergy N/A N/A 04/03/2014 Yes Tetracyclines Drug Allergy N/ A N/A 04/03/2014 Yes No Known Drug Allergies [id number] Drug Allergy Unknown N/A 12/20/2016 Yes prochlorperazine [id number] Drug Allergy Unknown N/A 12/20/2016 Medications Medication Packaging Start Date Stop Date Route Dosage Sig LEVOTHYROXINE SODIUM ORAL 2015 ORAL 3030 daily CITALOPRAM HYDROBROMIDE ORAL 2015 ORAL 3030 daily PERCOCET ORAL 10/17/2015 ORAL 3030 three times daily DICYCLOMINE HCL ORAL 10/18/2015 11/17/2015 ORAL 623305 4 times a day TYLENOL WITH CODEINE #3 ORAL 2015 ORAL 2020 every 6 hours furosemide 07/12/2017 PO 40 mg / 1 tab pantoprazole 07/12/2017 PO 40 mg / 1 tab venlafaxine 07/12/2017 PO 75 mg / 1 tab cyclobenzaprine 07/12/2017 PO 10 mg / 1 tab levothyroxine 07/12/2017 PO 25 mcg / 1 tab promethazine 07/12/2017 08/11/2017 PO 25 mg / 1 tab Problems Date Dx Coded Attending Type Code Diagnosis Diagnosed By 04/03/2014 KIM MITCHELL MD 626.2 MENORRHAGIA 04/03/2014 KIM MITCHELL MD 626.2 MENORRHAGIA 04/03/2014 KIM MITCHELL MD 626.2 MENORRHAGIA 04/03/2014 KIM MITCHELL MD 626.2 MENORRHAGIA 04/03/2014 SWHERBIE NINOS, DANIELA M 626.2 MENORRHAGIA 04/03/2014 KIM MITCHELL MD 626.2 [...] KIM MITCHELL MD V73.81 HPV SCREENING 04/23/2014 IKM MITCHELL MD V76.10 BREAST CANCER SCREENING 04/23/2014 KIM MITCHELL MD V76.2 CERVICAL CANCER SCREENING (PAP SMEAR) 04/23/2014 KAVON NINOS, DANIELA M 611.72 BREAST LUMP OR MASS 04/23/2014 KAVON NINOS, DANIELA M 782.1 RASH 04/23/2014 KAVON NINOS, DANIELA M V70.0 ROUTINE GENERAL MEDICAL EXAMINATION AT A HEALTH CARE FACILITY 04/23/2014 KAVON NINOS, DANIELA M V73.81 HPV SCREENING 04/23/2014 KAVON NINOS, DANIELA M V76.10 BREAST CANCER SCREENING 04/23/2014 KAVON NINOS, DANIELA M V76.2 CERVICAL CANCER SCREENING (PAP SMEAR) 04/23/2014 [...] MITCHELL MD 790.6 LIVER FUNCTION TEST, ABNORMAL 12/19/2016 RADHA AVERY DO Ot R10.9 UNSPECIFIED ABDOMINAL PAIN 12/19/2016 RADHA AVERY DO Ot Z53.21 PROC/TRTMT NOT CRD OUT D/T PT LV BEF SEE 12/20/2016 JEANNETTE BELLO STEM ROLLER Ot R11.2 NAUSEA WITH VOMITING, UNSPECIFIED 12/20/2016 JEANNETTE BELLO STEM ROLLER Ot R19.7 DIARRHEA, UNSPECIFIED 12/20/2016 JEANNETTE BELLO STEM ROLLER Ot R25.2 CRAMP AND SPASM 12/22/2016 JEANNETTE BELLO STEM ROLLER Ot R11.2 NAUSEA WITH VOMITING, UNSPECIFIED 12/22/2016 JEANNETTE BELLO STEM ROLLER Ot R19.7 DIARRHEA, UNSPECIFIED 12/22/2016 JEANNETTE BELLO STEM ROLLER Ot R25.2 CRAMP AND SPASM 12/22/2016 JEANNETTE BELLO STEM ROLLER Ot R11.2 NAUSEA WITH VOMITING, UNSPECIFIED 12/22/2016 JEANNETTE BELLO STEM ROLLER Ot R19.7 DIARRHEA, UNSPECIFIED 12/22/2016 JEANNETTE BELLO STEM ROLLER Ot R25.2 CRAMP AND SPASM 07/13/2017 PreKacey larose Final L76.34 Postprocedural seroma of skin and subcutaneous tissue follow 07/13/2017 Kacey Giron Admitting R10.31 Right lower quadrant pain 07/13/2017 Kacey Giron Final R11.2 Nausea with vomiting, unspecified 07/13/2017 PreweKacey chester Final R51 Headache 07/13/2017 PreKacey larose T45.0X5A Adverse effect of antiallergic and antiemetic drugs, initial Procedures Code Description [place] [address] ROUTINE VENIPUNCTURE 04/06/2014 10238 CBC 04/06/2014 34223 MAMMOGRAM, SCREENING 04/24/2014 53264 PAP SMEAR 04/24/2014 Q0091 PAP SMEAR OBTAIN SMEAR 04/24/2014 09162 ROUTINE VENIPUNCTURE 10/12/2014 25874 US LIVER ULTRASOUND 10/12/2014 24816 CMP 10/12/2014 53482 MAGNESIUM 10/12/2014 42235 TSH 10/12/2014 91161 CBC 10/12/2014 62756 Intravenous infusion, hydration; each ad AGUSTÍN GISELA 07/12/2017 23116 Therapeutic, prophylactic, or diagnostic [place] [place] 07/12/2017 13871 Therapeutic, prophylactic, or diagnostic [facility] [place] [place] 07/12/2017 07120 Therapeutic, prophylactic, or diagnostic [place] [place] 07/12/2017 58367 Emergency department visit for the evalu AGUSTÍN [place] 07/12/2017 Results Test Result Range Complete blood count (CBC) with automated white blood cell (WBC) differential - 12/20/16 16:27 Blood leukocytes automated count (number/volume) 6.8 10*3/uL 4.3-11.0 Blood erythrocytes automated count (number/volume) 4.29 10*6/uL 4.35-5.85 Venous blood hemoglobin measurement (mass/volume) 13.9 g/dL 11.5-16.0 Blood hematocrit (volume fraction) 40 % 35-52 Automated erythrocyte mean corpuscular volume 94 [foz_us] 80-99 Automated erythrocyte mean corpuscular hemoglobin (mass per erythrocyte) 32 pg 25-34 Automated erythrocyte mean corpuscular hemoglobin concentration measurement ( mass/volume) 35 g/dL 32-36 Automated erythrocyte distribution width ratio 12.7 % 10.0-14.5 Automated blood platelet count (count/volume) 193 10*3/uL 130-400 Automated blood platelet mean volume measurement 11.1 [foz_us] 7.4-10.4 Automated blood neutrophils/100 leukocytes 65 % 42-75 Automated blood lymphocytes/100 leukocytes 26 % 12-44 Blood monocytes/100 leukocytes 9 % 0-12 Automated blood eosinophils/100 leukocytes 0 % 0-10 Automated blood basophils/100 leukocytes 0 % 0-10 Blood neutrophils automated count (number/volume) 4.4 10*3 1.8-7.8 Blood lymphocytes automated count (number/volume) 1.8 10*3 1.0-4.0 Blood monocytes automated count (number/volume) 0.6 10*3 0.0-1.0 Automated eosinophil count 0.0 10*3/uL 0.0-0.3 Automated blood basophil count (count/volume) 0.0 10*3/uL 0.0-0.1 Comprehensive metabolic panel - 12/20/16 16:48 Serum or plasma sodium measurement (moles/volume) 141 mmol/L 135-145 Serum or plasma potassium measurement (moles/volume) 4.4 mmol/L 3.6-5.0 Serum or plasma chloride measurement (moles/volume) 104 mmol/L 98-107 Carbon dioxide 28 mmol/L 21-32 Serum or plasma anion gap determination (moles/volume) 9 mmol/L 5-14 Serum or plasma urea nitrogen measurement (mass/volume) 18 mg/dL 7-18 Serum or plasma creatinine measurement (mass/volume) 1.37 mg/dL 0.60-1.30 Serum or plasma urea nitrogen/creatinine mass ratio 13 0 -20 Serum or plasma creatinine measurement with calculation of estimated glomerular filtration rate 41 NRG Serum or plasma glucose measurement (mass/volume) 125 mg/dL 70-105 Serum or plasma calcium measurement (mass/volume) 10.0 mg/dL 8.5-10.1 Serum or plasma total bilirubin measurement (mass/volume) 0.5 mg/dL 0.1-1.0 Serum or plasma alkaline phosphatase measurement (enzymatic activity/volume) 85 U/L 40-136 Serum or plasma aspartate aminotransferase measurement (enzymatic activity/ volume) 32 U/L 5-34 Serum or plasma alanine aminotransferase measurement (enzymatic activity/volume ) 50 U/L 0-55 Serum or plasma protein measurement (mass/volume) 7.1 g/dL 6.4-8.2 Serum or plasma albumin measurement (mass/volume) 4.2 g/dL 3.2-4.5 Lipase - 12/20/16 16:48 Lipase 33 U/L 8-78 Complete urinalysis with reflex to culture - 12/20/16 18:57 Urine color determination YELLOW NRG Urine clarity determination CLEAR NRG Urine pH measurement by test strip 7 5-9 Specific gravity of urine by test strip 1.010 1.016- 1.022 Urine protein assay by test strip, semi-quantitative 2+ NEGATIVE Urine glucose detection by automated test strip NEGATIVE NEGATIVE Erythrocytes detection in urine sediment by light microscopy 5+ NEGATIVE Urine ketones detection by automated test strip NEGATIVE NEGATIVE Urine nitrite detection by test strip NEGATIVE NEGATIVE Urine total bilirubin detection by test strip NEGATIVE NEGATIVE Urine urobilinogen measurement by automated test strip (mass/volume) NORMAL NORMAL Urine leukocyte esterase detection by dipstick NEGATIVE NEGATIVE Automated urine sediment erythrocyte count by microscopy (number/high power field) [HPF] NRG Automated urine sediment leukocyte count by microscopy (number/high power field ) [HPF] NRG Bacteria detection in urine sediment by light microscopy FEW NRG Squamous epithelial cells detection in urine sediment by light microscopy 2-5 NRG Crystals detection in urine sediment by light microscopy NONE NRG Casts detection in urine sediment by light microscopy NONE NRG Mucus detection in urine sediment by light microscopy NEGATIVE NRG Complete urinalysis with reflex to culture NO NRG CBC With Differential/Platelet - 02/17/17 11:53 WBC 7.0 x10E3/uL 3.4-10.8 RBC 4.61 x10E6/uL 3.77-5.28 Hemoglobin 14.9 g/dL 11.1-15.9 Hematocrit 43.0 % 34.0-46.6 MCV 93 fL 79-97 MCH 32.3 pg 26.6-33.0 MCHC 34.7 g/dL 31.5-35.7 RDW 13.3 % 12.3-15.4 Platelets 200 x10E3/uL 150-379 Neutrophils 50 % Lymphs 40 % Monocytes 10 % Eos 0 % Basos 0 % Neutrophils (Absolute) 3.4 x10E3/uL 1.4-7.0 Lymphs (Absolute) 2.8 x10E3/uL 0.7-3.1 Monocytes(Absolute) 0.7 x10E3/uL 0.1-0.9 Eos (Absolute) 0.0 x10E3/uL 0.0-0.4 Baso (Absolute) 0.0 x10E3/uL 0.0-0.2 Immature Granulocytes 0 % Immature Grans (Abs) 0.0 x10E3/uL 0.0-0.1 Comp. Metabolic Panel (14) - 02/17/17 11:53 Glucose, Serum 88 mg/dL 65-99 BUN 20 mg/dL 6-24 Creatinine, Serum 1.21 mg/dL 0.57-1.00 eGFR If NonAfricn Am 53 mL/min/1.73 >59 eGFR If Africn Am 62 mL/min/1.73 >59 BUN/Creatinine Ratio 17 9-23 Sodium, Serum 142 mmol/L 134-144 Potassium, Serum 3.6 mmol/L 3.5-5.2 Chloride, Serum 97 mmol/L 96-106 Carbon Dioxide, Total 26 mmol/L 18-29 Calcium, Serum 9.7 mg/dL 8.7-10.2 Protein, Total, Serum 7.6 g/dL 6.0-8.5 Albumin, Serum 4.8 g/dL 3.5-5.5 Globulin, Total 2.8 g/dL 1.5-4.5 A/G Ratio 1.7 1.2-2.2 Bilirubin, Total 0.3 mg/dL 0.0-1.2 Alkaline Phosphatase, S 92 IU/L 39-117 AST (SGOT) 21 IU/L 0-40 ALT (SGPT) 35 IU/L 0-32 TSH - 02/17/17 11:53 TSH 7.250 uIU/mL 0.450-4.500 B-Type Natriuretic Peptide - 03/17/17 10:46 B-Type Natriuretic Peptide <2.5 pg/mL 0.0-100.0 Comp. Metabolic Panel (14) - 03/17/17 10:46 Glucose, Serum 129 mg/dL 65-99 BUN 14 mg/dL 6-24 Creatinine, Serum 1.13 mg/dL 0.57-1.00 eGFR If NonAfricn Am 58 mL/min/1.73 >59 eGFR If Africn Am 67 mL/min/1.73 >59 BUN/Creatinine Ratio 12 9-23 Sodium, Serum 146 mmol/L 134-144 Potassium, Serum 3.4 mmol/L 3.5-5.2 Chloride, Serum 101 mmol/L 96-106 Carbon Dioxide, Total 29 mmol/L 18-29 Calcium, Serum 9.1 mg/dL 8.7-10.2 Protein, Total, Serum 7.0 g/dL 6.0-8.5 Albumin, Serum 4.2 g/dL 3.5-5.5 Globulin, Total 2.8 g/dL 1.5-4.5 A/G Ratio 1.5 1.2-2.2 Bilirubin, Total 0.3 mg/dL 0.0-1.2 Alkaline Phosphatase, S 94 IU/L 39-117 AST (SGOT) 24 IU/L 0-40 ALT (SGPT) 38 IU/L 0-32 BNP - 03/17/17 10:46 B-Type Natriuretic Peptide <2.5 pg/mL 0.0-100.0 CMP - 03/17/17 10:46 Glucose, Serum 129 mg/dL 65-99 BUN 14 mg/dL 6-24 Creatinine, Serum 1.13 mg/dL 0.57-1.00 eGFR If NonAfricn Am 58 mL/min/1.73 >59 eGFR If Africn Am 67 mL/min/1.73 >59 BUN/Creatinine Ratio 12 9-23 Sodium, Serum 146 mmol/L 134-144 Potassium, Serum 3.4 mmol/L 3.5-5.2 Chloride, Serum 101 mmol/L 96-106 Carbon Dioxide, Total 29 mmol/L 18-29 Calcium, Serum 9.1 mg/dL 8.7-10.2 Protein, Total, Serum 7.0 g/dL 6.0-8.5 Albumin, Serum 4.2 g/dL 3.5-5.5 Globulin, Total 2.8 g/dL 1.5-4.5 A/G Ratio 1.5 1.2-2.2 Bilirubin, Total 0.3 mg/dL 0.0-1.2 Alkaline Phosphatase, S 94 IU/L 39-117 AST (SGOT) 24 IU/L 0-40 ALT (SGPT) 38 IU/L 0-32 TSH - 05/04/17 09:33 TSH 4.01 mIU/L NR PROCALCITONIN - 07/12/17 18:18 PROCALCITONIN <0.05 ng/mL 0.00-0.49 LACTIC ACID - 07/12/17 18:18 Lactic Acid 1.9 mmol/L 0.5-2.0 BLOOD CULTURE - 07/12/17 18:18 Specimen Description BLOOD NR Special Requests S+two separate sites (total of 4 tubes) two separate sites (total of 4 tubes) NRG Culture NO GROWTH 5 DAYS NRG Report Status FINAL 07/17/2017 NRG Organism NG5 NRG BLOOD CULTURE - 07/12/17 18:18 Specimen Description BLOOD NRG Special Requests S+two separate sites (total of 4 tubes) two separate sites (total of 4 tubes) NRG Culture NO GROWTH 5 DAYS NRG Report Status FINAL 07/17/2017 NRG Organism NG5 NRG URINALYSIS, CULTURE IF INDICATED - 07/12/17 19:16 Color, UA YELLOW YELL Clarity, Urine CLEAR Clear Glucose, Urine NEGATIVE mg/dL NEG Bilirubin, UA NEGATIVE NEG Ketones, UA NEGATIVE mg/dL NEG Specific [place], UA 1.024 1.003-1.030 Blood, UA MODERATE NEG pH, UA 6.0 5.0-9.0 Protein, UA 50 mg/dL NEG Urobilinogen, UA NORMAL mg/dL NORM Nitrites, UA NEGATIVE NEG Leukocyte Esterase, UA NEGATIVE NEG Specimen Description VOID URINE NRG WBC's, UA 0-5 /hpf OFIVE RBC, UA 50 to 100 /hpf OFIVE Bacteria, UA FEW /hpf NEG Squamous Epithelials, UA NEG - FEW /hpf NEGFEW Hyaline Casts 2 to 5 /lpf NEG Yeast FEW /hpf NEG Urine Culture Indicated NO CULTURE NEEDED NOCULT Encounters ACCT No. Visit Date/Time Discharge Status Pt. Type Provider Facility Loc./Unit Complaint [id number] 10/12/2014 09:53:00 10/12/2014 23:59:59 CLS Outpatient KIM MITCHELL MD [id number] 06/18/2014 09:06:00 06/18/2014 23:59:59 CLS Outpatient DANIELA JACOBSON DDS [id number] 04/23/2014 15:22:00 04/23/2014 23:59:59 CLS Outpatient KIM MITCHELL MD [id number] 04/23/2014 15:22:00 04/23/2014 23:59:59 CLS Outpatient KIM MITCHELL MD [id number] 04/06/2014 11:00:00 04/06/2014 23:59:59 CLS Outpatient KIM MITCHELL MD [id number] 04/03/2014 17:30:00 04/03/2014 23:59:59 CLS Outpatient KIM MITCHELL MD [id number] 02/18/2017 08:36:00 Document Registration [id number] 05/14/2017 08:00:00 05/14/2017 23:59:59 CLS Preadmit JASON MOSQUERA AC[employer] TUTOR [facility] RAD M25.562 ACUTE PAIN OF LEFT KNEE [id number] 12/20/2016 15:40:00 12/20/2016 19:24:00 DIS Emergency JEANNETTE BELLO APRN [facility] ER ABD PAIN [id number] 12/19/2016 21:59:00 12/19/2016 22:41:00 DIS Emergency RADHA AVERY DO [facility] ER L SIDE STOMACH PAIN/HOT FLASHES [id number] 03/18/2017 14:10:00 Document Registration [id number] 07/28/2016 14:20:42 07/28/2016 14:20:42 DIS Outpatient [facility] [id number] 03/18/2017 08:44:00 Document Registration [id number] 07/12/2017 16:59:00 07/13/2017 00:16:00 DIS Emergency Kacey Giron [facility] ER Cardiac [id number] 12/03/2017 14:40:00 12/03/2017 23:59:59 CLS Outpatient JASON MOSQUERA APRN [facility] [id number] 05/04/2017 08:40:00 Document Registration [id number] 03/17/2017 09:40:00 Document Registration
[2018-06-27] MEDS ORDERED: ONDANSETRON 8 MG (ZOFRAN) ORAL DISSOLVE TAB PO ONE (20:00)
[2018-06-27] MEDS ORDERED: diphenhydrAMINE 50 MG/ML INJ (BENADRYL) IM ONE (20:00)
[2018-06-27] MEDS ORDERED: KETOROLAC 60 MG/2 ML VIAL IM ONE (20:00)
[2018-06-27 20:12] LABS: BASOPHILS % (AUTO) 0 % (0-10); EOSINOPHILS # (AUTO) 0.1 10^3/uL (0.0-0.3); EOSINOPHILS % (AUTO) 1 % (0-10); HEMATOCRIT 44 % (35-52); HEMOGLOBIN 15.2 G/DL (11.5-16.0); LYMPHOCYTES # (AUTO) 3.1 X 10^3 (1.0-4.0); LYMPHOCYTES % (AUTO) 36 % (12-44); MEAN CORPUSCULAR HEMOGLOBIN 32 PG (25-34); MEAN CORPUSCULAR HGB CONC 34 G/DL (32-36); MEAN CORPUSCULAR VOLUME 93 FL (80-99); MEAN PLATELET VOLUME 11.2 FL (7.4-10.4); MONOCYTES # (AUTO) 0.6 X 10^3 (0.0-1.0); MONOCYTES % (AUTO) 7 % (0-12); NEUTROPHILS # (AUTO) 4.7 X 10^3 (1.8-7.8); NEUTROPHILS % (AUTO) 55 % (42-75); PLATELET COUNT 171 10^3/uL (130-400); RED BLOOD COUNT 4.75 10^6/uL (4.35-5.85); RED CELL DISTRIBUTION WIDTH 12.9 % (10.0-14.5); WHITE BLOOD COUNT 8.5 10^3/uL (4.3-11.0)
[2018-06-27 20:30] LABS: ALANINE AMINOTRANSFERASE 52 U/L (0-55); ALBUMIN 4.6 GM/DL (3.2-4.5); ALKALINE PHOSPHATASE 103 U/L (40-136); BILIRUBIN,TOTAL 0.4 MG/DL (0.1-1.0); BUN/CREATININE RATIO 17; CALCIUM 10.1 MG/DL (8.5-10.1); CARBON DIOXIDE 26 MMOL/L (21-32); CHLORIDE 101 MMOL/L (98-107); CREATININE SERUM 1.04 MG/DL (0.60-1.30); GFR ESTIMATED 57; GLUCOSE 88 MG/DL (70-105); POTASSIUM 4.1 MMOL/L (3.6-5.0); SODIUM 140 MMOL/L (135-145); TOTAL PROTEIN 8.1 GM/DL (6.4-8.2)
[2018-06-27 20:34] LABS: ERYTHROCYTE SEDIMENTATION RATE 18 MM/HR (0-20)
[2018-06-27 20:49] LABS: TSH (THYROID ANALYZER) 1.62 UIU/ML (0.35-4.94)
--- NOTE | 2018-06-27 21:45 | ED General ---
General Chief Complaint: General Problems/Pain Stated Complaint: LETHARGIC,BODY ACHES Nursing Triage Note: PT PRESENTS TO ER WITH COMPLAINT OF EXTREME TIREDNESS, JOINT PAIN, AND ALL OVER MALAISE. STATES SHE HAS BEEN DIAGNOSED WITH A RHEUMATOID DISEASE, BUT HAS NOT BEEN ABLE TO GET INTO A SPECIALIST. Nursing Sepsis Screen: No Definite Risk Source of Information: Patient Exam Limitations: No Limitations History of Present Illness Date Seen by Provider: Jun 27, 2018 Time Seen by Provider: 20:00 Initial Comments Patient is a 47-year-old female who presents to the emergency room with complaints of fatigue, joint pain, and a migraine that started this morning. She has history of rheumatoid disease and thyroid disorder and was referred to a specialist by [facility] but has not followed up due to cost of the specialist. Denies fevers, nausea, vomiting. Timing/Duration: 1 Day Associated Systoms: Headaches, Malaise Allergies and Home Medications Allergies Coded Allergies: Sulfa (Sulfonamide Antibiotics) (Verified Allergy, Unknown, 06/27/18) hydroxyzine (Verified Allergy, Unknown, 06/27/18) prochlorperazine (Verified Allergy, Unknown, 12/20/16) tetracycline (Verified Allergy, Unknown, 06/27/18) Patient Home Medication List Home Medication List Reviewed: Yes Review of Systems Review of Systems Constitutional: see HPI, malaise Musculoskeletal: see HPI, joint pain Psychiatric/Neurological: See HPI, Headache All Other Systems Reviewed Negative Unless Noted: Yes Past Lxwoccm-Ufguqg-Idvatw Hx Past Med/Social Hx: Reviewed Nursing Past Med/Soc Hx Patient Social History Alcohol Use: Denies Use Recreational Drug Use: No Smoking Status: Former Smoker Former Smoker, Quit: Jun 15, 1996 2nd Hand Smoke Exposure: No Recent Foreign Travel: No Contact w/Someone Who Travel: No Recent Infectious Disease Expo: No Recent Hopitalizations: No Immunizations Up To Date Tetanus Booster (TDap): Less than 5yrs PED Vaccines UTD: Yes Seasonal Allergies Seasonal Allergies: No Past Medical History Surgeries: Yes (HERNIA) Abdominal, Appendectomy, Gallbladder, Hysterectomy, Tonsillectomy Respiratory: Yes Asthma Cardiac: Yes Chronic Edema/Swelling, Hypertension Neurological: No Genitourinary: No Gastrointestinal: No Musculoskeletal: No Endocrine: Yes Hypothyroidsim HEENT: No Cancer: No Psychosocial: Yes Anxiety, Depression Integumentary: No Blood Disorders: No Adverse Reaction/Blood Tranf: No Family Medical History Reviewed Nursing Family Hx Physical Exam Vital Signs Vital Signs - First Documented 06/27/18 06/27/18 18:56 22:03 Temp 98.4 Pulse 73 Resp 20 B/P (MAP) 124/86 (99) Pulse Ox 99 O2 Delivery Room Air Capillary Refill : Less Than 3 Seconds Height, Weight, BMI Height: 5'7.00" Weight: 310lbs. oz. 140.189047vk; BMI Method:Stated General Appearance: No Apparent Distress, WD/WN Eyes: Bilateral Eye Normal Inspection, Bilateral Eye PERRL, Bilateral Eye EOMI HEENT: PERRL/EOMI Neck: Full Range of Motion, Normal Inspection, Non Tender, Supple, Carotid Bruit Respiratory: Chest Non Tender, Lungs Clear, Normal Breath Sounds, No Accessory Muscle Use, No Respiratory Distress Cardiovascular: Regular Rate, Rhythm, No Edema, No Gallop, No JVD, No Murmur, Normal Peripheral Pulses Gastrointestinal: Normal Bowel Sounds, No Organomegaly, No Pulsatile Mass, Non Tender, Soft Extremity: Normal Capillary Refill, Normal Inspection, Normal Range of Motion, Non Tender, No Calf Tenderness, No Pedal Edema Neurologic/Psychiatric: Alert, Oriented x3, Normal Mood/Affect Skin: Normal Color, Warm/Dry Progress/Results/Core Measures Suspected Sepsis Recent Fever Within 48 Hours: No Infection Criteria Present: None New/Unexplained Altered Menta: No Sepsis Screen: No Definite Risk SIRS Temperature:98.4 Pulse: 73 Respiratory Rate: 20 Laboratory Tests 06/27/18 19:53: White Blood Count 8.5 Blood Pressure / Mean: Laboratory Tests 06/27/18 19:53: Creatinine 1.04, Platelet Count 171, Total Bilirubin 0.4 Results/Orders Lab Results Micro Results My Orders Medications Given in ED Vital Signs/I&O Capillary Refill : Less Than 3 Seconds Progress Note : Time: 21:40 Progress Note I have seen and evaluated the patient. He headache has resolved at this time. I have informed her of her laboratory findings. She agrees with plan of care, plans for discharge, return precautions were given. Departure Impression Primary Impression: Migraine Additional Impression: Chronic pain Disposition: 01 HOME, SELF-CARE Condition: Stable/Unchanged Departure-Patient Inst. Decision time for Depature: 21:41 Referrals: KANDY FAUSTIN,LOCAL PHYSICIAN (PCP) Primary Care Physician Patient Instructions: Migraine Headache (DC) Add. Discharge Instructions: You may use Tylenol and ibuprofen as directed by the bottle for pain relief. Follow-up with [facility] within 1 week for a recheck and for further evaluation of your rheumatoid disease. Return back to the emergency room for any worsening symptoms or concerns as needed. All discharge instructions reviewed with patient and/or family. Voiced understanding. EDDI RAMIREZ Jun 27, 2018 21:45
[2018-06-27 22:03] VITALS: BP 124/86
== END 2018-06-27 22:02 | disposition home or self-care (01) ==
LOC: EDUNIT# 18:26 → ER 18:28
DX: G43.909 Migraine, unspecified, not intractable, without status migrainosus (principal); G89.29 Other chronic pain; M06.9 Rheumatoid arthritis, unspecified; J45.909 Unspecified asthma, uncomplicated; I10 Essential (primary) hypertension; E03.9 Hypothyroidism, unspecified; F41.9 Anxiety disorder, unspecified; F32.9 Major depressive disorder, single episode, unspecified; Z90.710 Acquired absence of both cervix and uterus; Z90.49 Acquired absence of other specified parts of digestive tract; Z90.89 Acquired absence of other organs; Z87.891 Personal history of nicotine dependence; Z88.2 Allergy status to sulfonamides; Z88.8 Allergy status to other drugs, medicaments and biological substances; Z88.1 Allergy status to other antibiotic agents
CPT/HCPCS: 36415; 80053; 84443; 85025; 85652; 86141; 87804

== ENCOUNTER → 2018-07-06 | Outpatient (CLI) | payer OTHER | LOC: RT 14:48 | PROVIDERS: ATTEND Neuromusculoskeletal Medicine, Sports Medicine | DX: Z02.71 Encounter for disability determination (principal) | CPT/HCPCS: 94060 ==

== ENCOUNTER → 2018-07-15 | Outpatient (CLI) | payer MEDICAID ==
[~2018-07-15] MED LIST: ASPI-586 PO; CATHETER FLUSH 10 ML SYR IV PRN; CYCL10TA9 PO; FURO40TA4 PO; GABA-488 PO; IOHEXOL 350 MG/ML 100 ML (OMNIPAQUE 350) VIAL IV ONE; LEVO50TA6 PO; MELO15TA39 PO; NS 100 ML (IVPB) BAG IV ONE; POTA10CA43 PO; RECEIVED CONTRAST (Hold Metformin) IV SCH; TRAZ-190 PO; VNL75T PO
--- NOTE | 2018-07-15 15:47 | Diagnostic Imaging Report ---
PROCEDURE: CT abdomen and pelvis with contrast. TECHNIQUE: Multiple contiguous axial images were obtained through the abdomen and pelvis after administration of intravenous contrast. INDICATION: Abdominal pain. COMPARISON: Correlation is made with prior exam from 12/20/2016. FINDINGS: The lung bases are clear. The liver demonstrates generalized low density consistent with hepatic steatosis. No discrete liver mass is seen. Gallbladder is surgically absent. No biliary duct dilatation is seen. The pancreas and spleen are unremarkable. No adrenal mass is identified. The kidneys are unremarkable. Aorta is non-aneurysmal. No central retroperitoneal or mesenteric lymphadenopathy is seen. Postsurgical changes to the midline anterior abdominal wall from hernia repair is noted. No recurrent hernia is identified. There is a fluid collection in the midline subcutaneous tissues of the lower abdomen measuring 6.8 x 5.7 cm. In a patient status post surgery one year ago, this is most suggestive of a postoperative seroma. No gas within the collection is seen. Intra-abdominal bowel loops are normal caliber. There is no obstruction. There is no ascites. The bladder is decompressed. IMPRESSION: 1. Postop changes of anterior abdominal wall hernia repair. There is fluid collection superficial to the rectus musculature in the midline suggestive of postoperative seroma. No other significant abnormality is seen. Dictated by: Dictated on workstation # [id number]
== END ==
LOC: RAD 14:57
PROVIDERS: ATTEND Nurse Practitioner Family
DX: R10.31 Right lower quadrant pain (principal); Z90.49 Acquired absence of other specified parts of digestive tract; Z98.890 Other specified postprocedural states
CPT/HCPCS: 74177

== ENCOUNTER 2018-07-19 07:12 | Day surgery (SDC) | payer MEDICAID ==
[2018-07-19] VITALS (10 sets, daily range): BP systolic 109–176; BP diastolic 66–94
[~2018-07-19] VITALS: Ht 170.2 cm; Wt 140.6 kg
[~2018-07-19 07:12] MED LIST changes: -ASPI-586 PO; -CATHETER FLUSH 10 ML SYR IV PRN; -CYCL10TA9 PO; -FURO40TA4 PO; -GABA-488 PO; +HEParin (CATH LAB) 2,000 ML IV ONE; -IOHEXOL 350 MG/ML 100 ML (OMNIPAQUE 350) VIAL IV ONE; -LEVO50TA6 PO; +LIDOCAINE 1% INJ 20 ML 20 ML VIAL ONE; -MELO15TA39 PO; -NS 100 ML (IVPB) BAG IV ONE; +NS IV 1000 ML 1,000 ML ONE; -POTA10CA43 PO; -RECEIVED CONTRAST (Hold Metformin) IV SCH; -TRAZ-190 PO; -VNL75T PO
--- OUTSIDE RECORDS SUMMARY | 2018-07-19 07:15 | XMS REPORT | Clinical Summary ---
Author Author [facility] Organization [facility] Address Unknown Phone Unavailable Care Team Providers Care Pediatric Anesthesiologist Name Role Phone Gemini Herring MD PCP Source Comments Some departments are not documenting in the electronic medical record. If you do not see the information that you expected, contact Release of Information in the Health Information Management department at [phone] for further assistance in locating additional records.[facility] Allergies Comments Active Allergy Reactions Severity [...] Taken Vital Sign Reading 07/30/2017 1:00 AM [facility] Blood Pressure 160/71 07/29/2017 7:25 PM [facility] Pulse 73 07/29/2017 5:45 PM [facility] Temperature 36.9 C (98.4 F) - Respiratory Rate - 07/30/2017 12:58 AM [facility] Oxygen Saturation 98% - Inhaled Oxygen - Concentration 07/29/2017 11:52 AM [facility] Weight 127 kg (280 lb) 07/29/2017 11:52 AM [facility] Height 170.2 cm (5' 7") 07/29/2017 11:52 AM [employer] [employer] Body Mass Index 43.85 Plan of Treatment Health Maintenance Due Date Last Done Comments PHYSICAL (COMPREHENSIVE) 1976 EXAM HIV SCREENING 1984 DTAP/TDAP VACCINES (1 - 1987 Tdap) CERVICAL CANCER SCREENING 1999 BREAST CANCER SCREENING 2009 INFLUENZA VACCINE 01/26/2018 Results Not on filefrom Last 3 Months Advance Directives Patient has advance care planning documents, and code status on file. For more information, please contact: [facility] [address] [place] [address] Date Inactivated Comments Code Status Date Activated 12/25/2016 7:37 PM Full Code 12/23/2016 2:04 AM Provider has discussed Code Status Yes w/Patient or Family? 12/02/2016 2:44 PM Full Code 11/29/2016 5:17 AM Provider has discussed Code Status Yes w/Patient or Family?
--- OUTSIDE RECORDS SUMMARY | 2018-07-19 07:28 | XMS REPORT | Continuity of Care Document ---
Author Author [facility] Address Unknown Phone Unavailable Allergies Active Description Code Type Severity Reaction Onset Reported/Identified Relationship to Patient Clinical Status Yes SULFA Drug Allergy N/A N/A Yes TETRACYCLINE [id number] Drug Allergy N/A N/A Yes Compazine Drug N/A Agitation Yes hydrOXYzine Drug N/A Agitation Yes sulfa drugs Drug N/A N Yes Sulfa (Sulfonamide Antibiotics) Drug Allergy N/A N/A 04/03/2014 Yes Tetracyclines Drug Allergy N/ A N/A 04/03/2014 Yes No Known Drug Allergies [id number] Drug Allergy Unknown N/A 12/20/2016 Yes prochlorperazine [id number] Drug Allergy Unknown N/A 12/20/2016 Yes hydroxyzine [id number] Drug Allergy Unknown N/A 06/27/2018 Yes Sulfa (Sulfonamide Antibiotics) [id number] Drug Allergy Unknown N/A 2017 Yes tetracycline [id number] Drug Allergy Unknown N/A 06/27/2018 Medications Medication Packaging Start Date Stop Date Route Dosage Sig LEVOTHYROXINE SODIUM ORAL 2015 ORAL 3030 daily CITALOPRAM HYDROBROMIDE ORAL 2015 ORAL 3030 daily PERCOCET ORAL 10/17/2015 ORAL 3030 three times daily DICYCLOMINE HCL ORAL 10/18/2015 11/17/2015 ORAL 028867 4 times a day TYLENOL WITH CODEINE [...] 04/03/2014 KIM MITCHELL MD 626.2 MENORRHAGIA 04/03/2014 KAVON GARZA, DANIELA Hernandes 626.2 MENORRHAGIA 04/03/2014 KIM MITCHELL MD 626.2 [...] Hernandes 611.72 BREAST LUMP OR MASS 04/23/2014 KAVON GARZA, DANIELA Hernandes 782.1 RASH 04/23/2014 KAVON GARZA, DAINELA Hernandes V70.0 ROUTINE GENERAL MEDICAL EXAMINATION AT A HEALTH CARE FACILITY 04/23/2014 DANIELA JACOBSON DDS V73.81 HPV SCREENING 04/23/2014 KAVON GARZA, DANIELA Hernandes V76.10 BREAST CANCER SCREENING 04/23/2014 KAVON GARZA, DANIELA Hernandes V76.2 CERVICAL CANCER SCREENING (PAP SMEAR) 04/23/2014 [...] PT LV BEF SEE 12/20/2016 JEANNETTE BELLO APRN Ot R11.2 NAUSEA WITH VOMITING, UNSPECIFIED 12/20/2016 JEANNETTE BELLO APRN Ot R19.7 DIARRHEA, UNSPECIFIED 12/20/2016 JEANNETTE BELLO APRN Ot R25.2 CRAMP AND SPASM 12/22/2016 JEANNETTE BELLO APRN Ot R11.2 NAUSEA WITH VOMITING, UNSPECIFIED 12/22/2016 JEANNETTE BELLO APRN Ot R19.7 DIARRHEA, UNSPECIFIED 12/22/2016 JEANNETTE BELLO APRN Ot R25.2 CRAMP AND SPASM 12/22/2016 JEANNETTE BELLO TIRE CLASSIFIER Ot R11.2 NAUSEA WITH VOMITING, UNSPECIFIED 12/22/2016 JEANNETTE BELLO APRN Ot R19.7 DIARRHEA, UNSPECIFIED 12/22/2016 JEANNETTE BELLO TIRE CLASSIFIER Ot R25.2 CRAMP AND SPASM 07/13/2017 Kacey Giron Final L76.34 Postprocedural seroma of skin and subcutaneous tissue follow 07/13/2017 Kacey Giron Admitting R10.31 Right lower quadrant pain 07/13/2017 Prewett, Kacey Final R11.2 Nausea with vomiting, unspecified 07/13/2017 Prewett, Kacey Final R51 Headache 07/13/2017 Prewett, Kacey Final T45.0X5A Adverse effect of antiallergic and antiemetic drugs, initial 06/27/2018 SOLEDAD RAMIREZIS Ot E03.9 HYPOTHYROIDISM, UNSPECIFIED 06/27/2018 SOLEDAD RAMIREZIS Ot F32.9 MAJOR DEPRESSIVE DISORDER, SINGLE EPISOD 06/27/2018 JAMES EDDI Ot F41.9 ANXIETY DISORDER, UNSPECIFIED 06/27/2018 JAMES EDDI Ot G43.909 MIGRAINE, UNSP, NOT INTRACTABLE, WITHOUT 06/27/2018 BERNOT, EDDI Ot G89.29 OTHER CHRONIC PAIN 06/27/2018 JAMES EDDI Ot I10 ESSENTIAL (PRIMARY) HYPERTENSION 06/27/2018 SOLEDAD RAMIREZIS Ot J45.909 UNSPECIFIED ASTHMA, UNCOMPLICATED 06/27/2018 SOLEDAD RAMIREZIS Ot M06.9 RHEUMATOID ARTHRITIS, UNSPECIFIED 06/27/2018 JAMES EDDI Ot R53.83 OTHER FATIGUE 06/27/2018 JAMES EDDI Ot Z87.891 PERSONAL HISTORY OF NICOTINE DEPENDENCE 06/27/2018 SOLEDAD RAMIREZIS Ot Z88.1 ALLERGY STATUS TO OTHER ANTIBIOTIC AGENT 06/27/2018 JAMES EDDI Ot Z88.2 ALLERGY STATUS TO SULFONAMIDES STATUS 06/27/2018 JAMES EDDI Ot Z88.8 ALLERGY STATUS TO OTH DRUG/MEDS/BIOL SUB 06/27/2018 SOLEDAD RAMIREZIS Ot Z90.49 ACQUIRED ABSENCE OF OTHER SPECIFIED PART 06/27/2018 JAMES EDDI Ot Z90.710 ACQUIRED ABSENCE OF BOTH CERVIX AND UTER 06/27/2018 JAMES EDDI Ot Z90.89 ACQUIRED ABSENCE OF OTHER ORGANS 06/30/2018 SOLEDAD RAMIREZIS Ot E03.9 HYPOTHYROIDISM, UNSPECIFIED 06/30/2018 SOLEDAD RAMIREZIS Ot F32.9 MAJOR DEPRESSIVE DISORDER, SINGLE EPISOD 06/30/2018 SOLEDAD RAMIREZIS Ot F41.9 ANXIETY DISORDER, UNSPECIFIED 06/30/2018 SOLEDAD RAMIREZIS Ot G43.909 MIGRAINE, UNSP, NOT INTRACTABLE, WITHOUT 06/30/2018 BERNOT, EDDI Ot G89.29 OTHER CHRONIC PAIN 06/30/2018 SOLEDAD RAMIREZIS Ot I10 ESSENTIAL (PRIMARY) HYPERTENSION 06/30/2018 EDDI RAMIREZ Ot J45.909 UNSPECIFIED ASTHMA, UNCOMPLICATED 06/30/2018 EDDI RAMIREZ Ot M06.9 RHEUMATOID ARTHRITIS, UNSPECIFIED 06/30/2018 EDDI RAMIREZ Ot R53.83 OTHER FATIGUE 06/30/2018 SOLEDAD RAMIREZIS Ot Z87.891 PERSONAL HISTORY OF NICOTINE DEPENDENCE 06/30/2018 SOLEDAD RAMIREZIS Ot Z88.1 ALLERGY STATUS TO OTHER ANTIBIOTIC AGENT 06/30/2018 SOLEDAD RAMIREZIS Ot Z88.2 ALLERGY STATUS TO SULFONAMIDES STATUS 06/30/2018 JAMESEDDI Ot Z88.8 ALLERGY STATUS TO OTH DRUG/MEDS/BIOL SUB 06/30/2018 SOLEDAD RAMIREZIS Ot Z90.49 ACQUIRED ABSENCE OF OTHER SPECIFIED PART 06/30/2018 SOLEDAD RAMIREZIS Ot Z90.710 ACQUIRED ABSENCE OF BOTH CERVIX AND UTER 06/30/2018 SOLEDAD RAMIREZIS Ot Z90.89 ACQUIRED ABSENCE OF OTHER ORGANS 07/08/2018 ARMANDO IGNACIO, ARIES Anglin (DD) Ot Z02.71 ENCOUNTER FOR DISABILITY DETERMINATION Procedures Code Description [place] [address] ROUTINE VENIPUNCTURE 04/06/2014 28962 CBC 04/06/2014 33480 MAMMOGRAM, SCREENING 04/24/2014 21175 PAP SMEAR 04/24/2014 Q0091 PAP SMEAR OBTAIN SMEAR 04/24/2014 03561 ROUTINE VENIPUNCTURE 10/12/2014 95070 US LIVER ULTRASOUND 10/12/2014 87257 CMP 10/12/2014 56045 MAGNESIUM 10/12/2014 90102 TSH 10/12/2014 97416 CBC 10/12/2014 25713 Intravenous infusion, hydration; each ad GISELA RANDOLPH 07/12/2017 76199 Therapeutic, prophylactic, or diagnostic GISELA RANDOLPH 07/12/2017 93255 Therapeutic, prophylactic, or diagnostic GISELA RANDOLPH 07/12/2017 78769 Therapeutic, prophylactic, or diagnostic GISELA RANDOLPH 07/12/2017 52175 Emergency department visit for the evalu GISELA RANDOLPH 07/12/2017 Results Test Result Range Complete blood [...] TSH - 05/04/17 09:33 TSH 4.01 mIU/L NRG PROCALCITONIN - 07/12/17 18:18 PROCALCITONIN <0.05 ng/mL 0.00-0.49 LACTIC ACID - 07/12/17 18:18 Lactic Acid 1.9 mmol/L 0.5-2.0 BLOOD CULTURE - 07/12/17 18:18 Specimen Description BLOOD NRG Special Requests S+two separate sites (total of 4 tubes) two separate sites (total of 4 tubes) NRG Culture NO GROWTH 5 DAYS NRG Report Status FINAL 07/17/2017 NRG Organism NG5 NR BLOOD CULTURE - 07/12/17 18:18 Specimen Description BLOOD NRG Special Requests S+two separate sites (total of 4 tubes) two separate sites (total of 4 tubes) NRG Culture NO GROWTH 5 DAYS NRG Report Status FINAL 07/17/2017 NRG Organism NG5 NR URINALYSIS, CULTURE IF INDICATED - 07/12/17 19:16 Color, UA YELLOW YELL Clarity, Urine CLEAR Clear Glucose, Urine NEGATIVE mg/dL NEG Bilirubin, UA NEGATIVE NEG Ketones, UA NEGATIVE mg/dL NEG Specific Misenheimer, UA 1.024 1.003-1.030 Blood, UA MODERATE NEG [...] Urine Culture Indicated NO CULTURE NEEDED NOCULT Complete blood count (CBC) with automated white blood cell (WBC) differential - 06/27/18 19:53 Blood leukocytes automated count (number/volume) 8.5 10*3/uL 4.3-11.0 Blood erythrocytes automated count (number/volume) 4.75 10*6/uL 4.35-5.85 Venous blood hemoglobin measurement (mass/volume) 15.2 g/dL 11.5-16.0 Blood hematocrit (volume fraction) 44 % 35-52 Automated erythrocyte mean corpuscular volume 93 [foz_us] 80-99 Automated erythrocyte mean corpuscular hemoglobin (mass per erythrocyte) 32 pg 25-34 Automated erythrocyte mean corpuscular hemoglobin concentration measurement ( mass/volume) 34 g/dL 32-36 Automated erythrocyte distribution width ratio 12.9 % 10.0-14.5 Automated blood platelet count (count/volume) 171 10*3/uL 130-400 Automated blood platelet mean volume measurement 11.2 [foz_us] 7.4-10.4 Automated blood neutrophils/100 leukocytes 55 % 42-75 Automated blood lymphocytes/100 leukocytes 36 % 12-44 Blood monocytes/100 leukocytes 7 % 0-12 Automated blood eosinophils/100 leukocytes 1 % 0-10 Automated blood basophils/100 leukocytes 0 % 0-10 Blood neutrophils automated count (number/volume) 4.7 10*3 1.8-7.8 Blood lymphocytes automated count (number/volume) 3.1 10*3 1.0-4.0 Blood monocytes automated count (number/volume) 0.6 10*3 0.0-1.0 Automated eosinophil count 0.1 10*3/uL 0.0-0.3 Automated blood basophil count (count/volume) 0.0 10*3/uL 0.0-0.1 Comprehensive metabolic panel - 06/27/18 19:53 Serum or plasma sodium measurement (moles/volume) 140 mmol/L 135-145 Serum or plasma potassium measurement (moles/volume) 4.1 mmol/L 3.6-5.0 Serum or plasma chloride measurement (moles/volume) 101 mmol/L 98-107 Carbon dioxide 26 mmol/L 21-32 Serum or plasma anion gap determination (moles/volume) 13 mmol/L 5-14 Serum or plasma urea nitrogen measurement (mass/volume) 18 mg/dL 7-18 Serum or plasma creatinine measurement (mass/volume) 1.04 mg/dL 0.60-1.30 Serum or plasma urea nitrogen/creatinine mass ratio 17 NR Serum or plasma creatinine measurement with calculation of estimated glomerular filtration rate 57 NRG Serum or plasma glucose measurement (mass/volume) 88 mg/dL 70-105 Serum or plasma calcium measurement (mass/volume) 10.1 mg/dL 8.5-10.1 Serum or plasma total bilirubin measurement (mass/volume) 0.4 mg/dL 0.1-1.0 Serum or plasma alkaline phosphatase measurement (enzymatic activity/volume) 103 U/L 40-136 Serum or plasma aspartate aminotransferase measurement (enzymatic activity/ volume) 31 U/L 5-34 Serum or plasma alanine aminotransferase measurement (enzymatic activity/volume ) 52 U/L 0-55 Serum or plasma protein measurement (mass/volume) 8.1 g/dL 6.4-8.2 Serum or plasma albumin measurement (mass/volume) 4.6 g/dL 3.2-4.5 Serum or plasma thyrotropin measurement by detection limit <=0.05 miu/l (units/ volume) - 06/27/18 19:53 Serum or plasma thyrotropin measurement by detection limit <=0.05 miu/l (units/ volume) 1.62 u[iU]/mL 0.35-4.94 Erythrocyte sedimentation rate by westergren method - 06/27/18 19:53 Erythrocyte sedimentation rate by westergren method 18 mm 0-20 Serum or plasma C reactive protein measurement (mass/volume) - 06/27/18 19:53 Serum or plasma C reactive protein measurement (mass/volume) 0.67 mg /dL 0.00-0.50 Influenza virus A and B antigen detection - 06/27/18 20:38 FLU RESULT NEGATIVE FOR INFLUENZA A AND B ANTIGENS BY IA NRG Encounters ACCT No. Visit Date/Time Discharge Status Pt. Type Provider Facility Loc./Unit Complaint [id number] 10/12/2014 09:53:00 10/12/2014 23:59:59 CLS Outpatient KIM MITCHELL MD [id number] 06/18/2014 09:06:00 06/18/2014 23:59:59 CLS Outpatient DANIELA JACOBSON DDS [id number] 04/23/2014 15:22:00 04/23/2014 23:59:59 CLS Outpatient KIM MITCHELL MD [id number] 04/23/2014 15:22:00 04/23/2014 23:59:59 CLS Outpatient KIM MITCHELL MD [id number] 04/06/2014 11:00:00 04/06/2014 23:59:59 CLS Outpatient KIM MITCHELL MD [id number] 04/03/2014 17:30:00 04/03/2014 23:59:59 CLS Outpatient KIM MITCHELL MD [id number] 02/18/2017 08:36:00 Document Registration [id number] 07/15/2018 14:57:00 07/15/2018 23:59:59 CLS Outpatient ECTOR GR TIRE CLASSIFIER [facility] RAD RLQ ABD PAIN [id number] 07/08/2018 14:13:00 07/08/2018 23:59:59 CLS Preadmit LUCIA IGNACIO FACC, ALI FACP CCDS [facility] CARD CHEST DISCOMFORT,PALPITATIONS,SOB,OBESITY [id number] 07/08/2018 14:13:00 07/08/2018 23:59:59 CLS Preadmit LUCIA IGNACIO FACC, ALI FACP CCDS [facility] CARD CHEST DISCOMFORT,PALPITATIONS,SOB,OBESITY [id number] 07/06/2018 14:48:00 07/06/2018 23:59:59 CLS Outpatient ARMANDO IGNACIO, ARIES Anglin (DDU) [facility] RT ASTHMA [id number] 06/27/2018 18:28:00 06/27/2018 22:02:00 DIS Emergency EDDI RAMIREZ [facility] ER LETHARGIC,BODY ACHES [id number] 05/14/2017 08:00:00 05/14/2017 23:59:59 CLS Preadmit JASON MOSQUERA RECREATION ATTENDANT [facility] RAD M25.562 ACUTE PAIN OF LEFT KNEE [id number] 12/20/2016 15:40:00 12/20/2016 19:24:00 DIS Emergency JEANNETTE BELLO TIRE CLASSIFIER [facility] ER ABD PAIN [id number] 12/19/2016 21:59:00 12/19/2016 22:41:00 DIS Emergency RADHA AVERY DO [facility] ER L SIDE STOMACH PAIN/HOT FLASHES [id number] 07/19/2018 09:00:00 PREMA MYERS MD FACC, NICHELLE PIERCE CCDS [facility] CATH CHEST DISCOMFORT,PALPITATIONS, SOB,OBESITY [id number] 03/18/2017 14:10:00 Document Registration [id number] 07/28/2016 14:20:42 07/28/2016 14:20:42 DIS Outpatient [facility] [id number] 03/18/2017 08:44:00 Document Registration [id number] 07/12/2017 16:59:00 07/13/2017 00:16:00 DIS Emergency [facility] ER Cardiac [id number] 07/05/2018 16:00:00 07/05/2018 23:59:59 CLS Outpatient JASON MOSQUERA APRN [facility] [id number] 05/04/2017 08:40:00 Document Registration [id number] 03/17/2017 09:40:00 Document Registration
[2018-07-19] MEDS ORDERED: NS IV 1000 ML 1,000 ML IV SCH ×2 (07:30→09:16)
[2018-07-19] MEDS ORDERED: TRAZ-190 PO (07:38)
[2018-07-19] MEDS ORDERED: GABA-488 PO (07:38)
[2018-07-19] MEDS ORDERED: ASPI-586 PO (07:38)
[2018-07-19] MEDS ORDERED: MELO15TA39 PO (07:38)
[2018-07-19] MEDS ORDERED: LEVO50TA6 PO (07:39)
[2018-07-19] MEDS ORDERED: VNL75T PO (07:39)
[2018-07-19] MEDS ORDERED: FURO40TA4 PO (07:39)
[2018-07-19] MEDS ORDERED: CYCL10TA9 PO (07:39)
[2018-07-19 07:53] LABS: HEMOGLOBIN 13.3 G/DL (11.5-16.0); MEAN PLATELET VOLUME 10.7 FL (7.4-10.4); RED BLOOD COUNT 4.08 10^6/uL (4.35-5.85); RED CELL DISTRIBUTION WIDTH 13.1 % (10.0-14.5); WHITE BLOOD COUNT 5.8 10^3/uL (4.3-11.0)
[2018-07-19 08:09] LABS: INR 0.9 (0.8-1.4); PROTHROMBIN TIME PATIENT 12.4 SEC (12.2-14.7)
[2018-07-19 08:14] LABS: BILIRUBIN,TOTAL 0.5 MG/DL (0.1-1.0); CALCIUM 8.9 MG/DL (8.5-10.1); CREATININE SERUM 1.09 MG/DL (0.60-1.30); POTASSIUM 3.5 MMOL/L (3.6-5.0)
[2018-07-19] MEDS ORDERED: MIDAZOLAM 5 MG/5 ML (VERSED) VIAL ONE (08:15)
[2018-07-19] MEDS ORDERED: fentaNYL INJECTION 100 MCG/2 ML AMP ONE (08:15)
[2018-07-19] MEDS ORDERED: LIDOCAINE 1% INJ 20 ML 20 ML VIAL ONE (08:43)
--- NOTE | 2018-07-19 09:16 | Cardiac Procedure Note-CS/ASA ---
Pre-Procedure Note Pre-Op Procedure Note H&P Reviewed The H&P was reviewed, patient examined and no changes noted. Date H&P Reviewed: Jul 19, 2018 Time H&P Reviewed: 08:30 Conscious Sedation Pre-Proced Time 08:30 ASA Score 3 For ASA 3 and 4: Consider anesthesia and medical clearance. Also, for patients with a history of failed moderate sedation consider anesthesia. Airway Lungs Heart ASA score ASA 1: a normal healthy patient ASA 2: a patient with a mild systemic disease (mid diabetes, controlled hypertension, obesity ASA 3: a patient with a severe systemic disease that limits activity (angina , COPD, prior Myocardial infarction) ASA 4: a patient with an incapacitating disease that is a constant threat to life (CHF, renal failure) ASA 5: a moribund patient not expected to survive 24 hrs. (ruptured aneurysm) ASA 6: a declared brain patient whose organs are being harvested. For emergent operations, add the letter E after the classification Mallampati Classification Grade 3 Sedation Plan Analgesia, Amnesia, Plan communicated to team members, Discussed options with patient/fam, Discussed risks with patient/fam The patient is an appropriate candidate to undergo the planned procedure, sedation, and anesthesia. The patient immediately re-assessed prior to indication. NICHELLE MYERS MD FACP FAC CCDS Jul 19, 2018 09:16
[2018-07-19] MEDS ORDERED: POTA10CA43 PO (09:20)
--- NOTE | 2018-07-19 09:22 | Discharge Inst-Cardiology ---
Discharge Inst-Cardiac Discharge Medications New Medications: Potassium Chloride (Potassium Chloride) 10 Meq Capsule.er 10 MEQ PO DAILY for 30 Days, #30 CAP 5 Refills Continued Medications: Cyclobenzaprine HCl (Cyclobenzaprine HCl) 10 Mg Tablet 10 MG PO TID PRN for PRN, TAB Furosemide (Furosemide) 40 Mg Tablet 40 MG PO DAILY, TAB Gabapentin (Gabapentin) 300 Mg Capsule 300 MG PO PRN, CAP Levothyroxine Sodium (Levothyroxine Sodium) 50 Mcg Tablet 50 MCG PO DAILY, TAB Meloxicam (Meloxicam) 15 Mg Tablet 15 MG PO DAILY, TAB Trazodone HCl (Trazodone HCl) 100 Mg Tablet 100 MG PO DAILY, TAB Venlafaxine HCl (Venlafaxine HCl) 75 Mg Tab 75 MG PO BID, TAB Discontinued Medications: Aspirin (Aspir 81) 81 Mg Tablet.dr 81 MG PO DAILY, TAB NICHELLE MYERS MD FACP FACC CCDS Jul 19, 2018 09:22
--- NOTE | 2018-07-19 09:23 | Discharge Inst-Post CATH ---
Discharge Inst-CATH/EP Post Cardiac Cath/EP D/C Inst Follow Up/Plan F/u with Dr De La Rosa in 2 weeks CARDIAC CATH DISCHARGE INSTRUCTIONS *Hold Metformin for 48 hours post heart cath. ACTIVITY * Go Home directly and rest. * Limit activity of the leg (or wrist if it was used) for 7 days including aerobics, swimming, jogging, bicycling, etc. * Restrict stair-climbing for 7 days if possible, if not, climb up with your non -cath leg, then bring together on the same step. * Avoid lifting, pushing, pulling or excessive movement of the affected extremity for 7 days. * Customary sexual activity may be resumed after 2 days-use caution not to use a position that strains or causes pain to the affected extremity. * No driving for 24 hours. * NO SMOKING. * Avoid straining for bowel movements for 7 days. * Gentle walking on level ground is allowed. * Returning to work will depend on the type of procedure and the results. Your doctor will discuss this with you. CALL YOUR DOCTOR FOR ANY OF THE FOLLOWING: *If bleeding from the puncture site occurs- Apply gentle pressure to site with clean cloth and call your doctor or EMS. * If a knot or lump forms under the skin, increases in size, or causes pain. * If bruising appears to be worsening or moving further down your leg instead of disappearing. * Temperature above 101 F. CARE OF YOUR GROIN INCISION; * Bruising or purple discoloration of the skin near the puncture site is common. * You may shower only, no bathtub bathing for 5 days. Be careful to avoid slipping as your leg may feel stiff. * If a closure device was used on your femoral artery, please see the attached guide regarding care of the device and your leg. * Leave the dressing on, until removed by office staff. CARE OF YOUR WRIST INCISION; * Bruising or purple discoloration of the skin near the puncture site is common. * You may shower. * DO NOT submerge wrist. * Leave dressing on, until removed by office staff.. NICHELLE DE LA ROSA MD [facility] CCDS Jul 19, 2018 09:23
[2018-07-19] MEDS ORDERED: KCL 20 MEQ TAB (K-DUR) PO NR (09:30)
[2018-07-19] MEDS ORDERED: PATIENT MAY USE OWN MEDS, ALL PO SCH (09:30)
--- NOTE | 2018-07-19 09:40 | NUR ---
ARRIVES PER CART FROM TECHNICAL WRITER AND EDITOR. AWAKE, BUT QUITE DROWSY. SONOROUS, APNEIC BREATHING PATTERN. SAO2 LOW 80'S. O2 STARTED AT 3L PER NC.
[2018-07-19] MEDS ORDERED: CYCLOBENZAPRINE 10 MG (FLEXERIL) TAB PO PRN (10:30)
[2018-07-19] MEDS ORDERED: GABAPENTIN 300 MG (NEURONTIN) CAP PO ONE (10:30)
--- NOTE | 2018-07-19 10:30 | NUR ---
RESTING QUIETLY IN BED WITH SAO2 RANGING 91-94% WITH O2 AT 3L PER NC. CONTINES TO HAVE APNEIC BREATHING PATTERN. PT'S S/O STATES PT IS APPLYING FOR FINANCIAL ASSISTANCE TO HAVE A SLEEP STUDY DONE FOR SLEEP APNEA.
--- NOTE | 2018-07-19 11:05 | NUR ---
C/O CHRONIC BACK PAIN EXACERBATED BY LYING FLAT IN BED. DOES NOT HAVE HOME MEDS WITH HER, AND LIVES APPROX 45 MIN AWAY. HOME MED CYCLOBENZAPRINE 10 MG, AND GABAPENTIN 300 MG GIVEN PO PER ORDER.
--- NOTE | 2018-07-19 11:17 | CARDIAC CATHETERIZATION ---
DATE OF SERVICE: 07/19/2018 CARDIAC CATHETERIZATION REPORT INDICATION: The patient is a 47-year-old lady, who has multiple coronary artery disease risk factors and who has been experiencing chest pain that was suggestive of new onset of angina. She also has palpitations of undetermined etiology. Cardiac catheterization was carried out today after having obtained informed consent. PROCEDURE IN DETAIL: She was brought to the cardiac catheterization laboratory in a fasting state. Right groin was prepared and draped in the usual sterile fashion. Lidocaine 1% was used for local anesthesia. Modified Seldinger technique was used to advance a 5-Turkish sheath into right femoral artery. A 5-Turkish JL4 catheter was used for left coronary angiography, 5-Turkish JR4 catheter was used for right coronary angiography, 5-Turkish pigtail catheter was used for left heart catheterization and left ventricular angiography. The pigtail was pulled back to the aortic arch and aortic arch angiography was performed. Pigtail catheter was removed. Angiography of the right femoral artery was carried out through the sheath. The site of the sheath insertion did not appear suitable for device closure. She was transferred to the holding area for manual sheath removal. She tolerated the procedure well. HEMODYNAMICS: Left ventricular end-diastolic pressure following coronary angiography was 20 mmHg. There was no significant pressure gradient on pullback across the aortic valve. Ascending aortic pressure was 165/92 with a mean of 68 mmHg. LEFT VENTRICULAR ANGIOGRAPHY: Left ventricular angiography was carried out in the right anterior oblique projection. Global left ventricular systolic function is normal. No regional wall motion abnormalities are seen. Left ventricular ejection fraction is approximately 60%. No significant mitral regurgitation is seen. AORTIC ARCH ANGIOGRAPHY: Aortic arch angiography did not indicate any significant thoracic aortic aneurysm or dissection. The neck arteries, to the extent seen, do not exhibit any significant disease. CORONARY ANGIOGRAPHY: Left main coronary artery, left anterior descending artery, left circumflex artery, right coronary artery, all appear to be angiographically normal. Right coronary artery is dominant. CONCLUSIONS: 1. No angiographically significant coronary artery disease. 2. Normal global left ventricular systolic function with ejection fraction of 60%. 3. Elevated left ventricular end diastolic pressure. 4. No evidence of thoracic aortic aneurysm or dissection. DISCUSSION AND RECOMMENDATIONS: Based on the results of the study, it appears appropriate to continue a conservative approach. Risk factor modification has been reviewed with her. Outpatient followup is advised. Job ID: [id number] DocumentID: [id number] Dictated Date: 07/19/2018 09:03:16 Education Program Coordinator Date: 07/19/2018 11:16:38 Dictated By: NICHELLE MYERS MD, MA, FACP, FACC,
--- NOTE | 2018-07-19 12:00 | NUR ---
ALERT, RESPIRATIONS EVEN, UNLABORED. LUNCH PROVIDED AND O2 DC'D.
== END 2018-07-19 13:06 | disposition home or self-care (01) ==
LOC: CATH 07:12 → SDC 09:35 → CATH 13:06
PROVIDERS: ATTEND Internal Medicine Cardiovascular Disease
DX: R07.89 Other chest pain (principal); R06.02 Shortness of breath; G62.9 Polyneuropathy, unspecified; E66.01 Morbid (severe) obesity due to excess calories; Z68.42 Body mass index [BMI] 45.0-49.9, adult; Z79.899 Other long term (current) drug therapy
CPT/HCPCS: 36221; 36415; 80053; 80061; 85027; 85610; 85730; 87081; 93458

== ENCOUNTER → 2018-08-05 | Outpatient (CLI) | payer MEDICAID ==
[~2018-08-05] MED LIST changes: +ASPI-586 PO; +CYCL10TA9 PO; +FURO40TA4 PO; +GABA-488 PO; -HEParin (CATH LAB) 2,000 ML IV ONE; +LEVO50TA6 PO; -LIDOCAINE 1% INJ 20 ML 20 ML VIAL ONE; +MELO15TA39 PO; -NS IV 1000 ML 1,000 ML ONE; +POTA10CA43 PO; +TRAZ-190 PO; +VNL75T PO
--- NOTE | 2018-08-05 15:42 | Diagnostic Imaging Report ---
PROCEDURE: US Venous Lower Ext Emanuel. TECHNIQUE: Multiple real-time grayscale images were obtained over the lower extremities in various projections, bilaterally. Additional duplex Doppler and color Doppler images were also obtained. INDICATION: Bilateral leg swelling. There is no evidence of a right or left lower extremity DVT. Both lower extremity deep venous system show normal compressibility with normal response to augmentation and Valsalva. No fluid collection or mass is seen. IMPRESSION: No evidence of right or left lower extremity DVT. Dictated by: Dictated on workstation # [id number]
== END ==
LOC: RAD 14:05
PROVIDERS: ATTEND Registered Nurse
DX: R60.0 Localized edema (principal); M79.89 Other specified soft tissue disorders
CPT/HCPCS: 93970

== ENCOUNTER 2018-08-29 12:38 | Emergency (ER) | payer MEDICAID ==
[~2018-08-29] VITALS: Ht 170.2 cm; Wt 147.4 kg
--- NOTE | 2018-08-29 13:04 | ED Abdominal Pain ---
General Stated Complaint: ABD PAIN Source of Information: Patient History of Present Illness Date Seen by Provider: Aug 29, 2018 Time Seen by Provider: 13:02 Timing/Duration: 1 Day Severity/Quality: Moderate Location: RLQ Radiation: No Radiation Activities at Onset: None Right lower quadrant cramping nonradiating abdominal pain for the past one day. Positive nausea, no vomiting or diarrhea. Pain feels like prior incarcerated hernia.'s had a total abdominal hysterectomy, hernia repair 2, appendectomy. Allergies and Home Medications Allergies Coded Allergies: Sulfa (Sulfonamide Antibiotics) (Verified Allergy, Unknown, 06/27/18) hydroxyzine (Verified Allergy, Unknown, 06/27/18) prochlorperazine (Verified Allergy, Unknown, 12/20/16) tetracycline (Verified Allergy, Unknown, 06/27/18) Home Medications Cyclobenzaprine HCl 10 Mg Tablet, 10 MG PO TID PRN for PRN, (Reported) Furosemide 40 Mg Tablet, 40 MG PO DAILY, (Reported) Gabapentin 300 Mg Capsule, 300 MG PO PRN, (Reported) Levothyroxine Sodium 50 Mcg Tablet, 50 MCG PO DAILY, (Reported) Meloxicam 15 Mg Tablet, 15 MG PO DAILY, (Reported) Ondansetron HCl 8 Mg Tablet, 8 MG PO Q6H PRN for NAUSEA/VOMITING-1ST LINE Prescribed by: LEONDIES ALFARO on 08/29/18 1605 Oxycodone HCl/Acetaminophen 1 Each Tablet, 1 TAB PO Q6H PRN for ABDOMINAL PAIN Prescribed by: LEONIDES ALFARO on 08/29/18 1605 Trazodone HCl 100 Mg Tablet, 100 MG PO DAILY, (Reported) Venlafaxine HCl 75 Mg Tab, 75 MG PO BID, (Reported) Patient Home Medication List Home Medication List Reviewed: Yes Review of Systems Review of Systems Constitutional: chills; No fever EENTM: No Blurred Vision, No Mouth Pain Respiratory: Denies Cough, Denies Shortness of Air Cardiovascular: Denies Edema Gastrointestinal: See HPI, Abdominal Pain Genitourinary: Denies Flank Pain, Denies Hematuria Musculoskeletal: No back pain, No gout Hematologic/Lymphatic: Denies Anemia, Denies Blood Clots Past Swhdvyt-Tzasbi-Pmebdg Hx Past Med/Social Hx: Reviewed Nursing Past Med/Soc Hx Patient Social History Type Used: Cigarettes Former Smoker, Quit: Jun 15, 1996 2nd Hand Smoke Exposure: No Recent Foreign Travel: No Contact w/Someone Who Travel: No Recent Hopitalizations: No Immunizations Up To Date Tetanus Booster (TDap): Less than 5yrs PED Vaccines UTD: Yes Date of Pneumonia Vaccine: Apr 18, 2013 Date of Influenza Vaccine: Apr 18, 2018 Seasonal Allergies Seasonal Allergies: No Past Medical History Surgeries: Yes (HERNIA) Abdominal, Appendectomy, Gallbladder, Hysterectomy, Tonsillectomy Respiratory: Yes Asthma Currently Using CPAP: No Currently Using BIPAP: No Cardiac: Yes Chronic Edema/Swelling Neurological: No Genitourinary: No Gastrointestinal: No Gastroesophageal Reflux, Gall Bladder Disease Musculoskeletal: No Endocrine: Yes Hypothyroidsim HEENT: No Cancer: No Psychosocial: Yes Anxiety, Depression Integumentary: No Blood Disorders: No Adverse Reaction/Blood Tranf: No Physical Exam Vital Signs Vital Signs - First Documented 08/29/18 13:08 Temp 97.1 Pulse 74 Resp 16 B/P (MAP) 176/73 (107) Pulse Ox 96 O2 Delivery Room Air Capillary Refill : Height/Weight/BMI Height: 5'7.00" Weight: 310lbs. 0.0oz. 140.485883gb; 48.6 BMI Method:Stated General Appearance: WD/WN, no apparent distress HEENT: PERRL/EOMI, normal ENT inspection, TMs normal, pharynx normal Neck: non-tender, full range of motion, normal inspection Respiratory: chest non-tender, lungs clear, normal breath sounds, no respiratory distress, no accessory muscle use Cardiovascular: regular rate, rhythm, no edema, no gallop, no JVD, no murmur Gastrointestinal: normal bowel sounds, soft, no organomegaly, no pulsatile mass ; No guarding, No rebound; tenderness; No hernia; mass (Firm tender mass in the right lower quadrant) Extremities: normal range of motion, non-tender, normal inspection, no pedal edema, no calf tenderness Back: no CVA tenderness, no vertebral tenderness Neurologic/Psychiatric: no motor/sensory deficits, alert, normal mood/affect, oriented x 3 Skin: normal color, warm/dry Progress/Results/Core Measures Results/Orders Lab Results Laboratory Tests Test 08/29/18 12:50 08/29/18 13:21 Range/Units Urine Color YELLOW Urine Clarity CLEAR Urine pH 6.5 5-9 Urine Specific Majestic 1.025 H 1.016-1.022 Urine Protein 2+ H NEGATIVE Urine Glucose (UA) NEGATIVE NEGATIVE Urine Ketones NEGATIVE NEGATIVE Urine Nitrite NEGATIVE NEGATIVE Urine Bilirubin NEGATIVE NEGATIVE Urine Urobilinogen 0.2 NORMAL MG/DL Urine Leukocyte Esterase NEGATIVE NEGATIVE Urine RBC (Auto) 3+ H NEGATIVE Urine RBC >100 H /HPF Urine WBC NONE /HPF Urine Squamous Epithelial Cells 10-25 H /HPF Urine Crystals NONE /LPF Urine Bacteria TRACE /HPF Urine Casts NONE /LPF Urine Mucus NEGATIVE /LPF Urine Culture Indicated NO White Blood Count 5.2 4.3-11.0 10^3/uL Red Blood Count 4.24 L 4.35-5.85 10^6/uL Hemoglobin 13.6 11.5-16.0 G/DL Hematocrit 40 35-52 % Mean Corpuscular Volume 94 80-99 FL Mean Corpuscular Hemoglobin 32 25-34 PG Mean Corpuscular Hemoglobin Concent 34 32-36 G/DL Red Cell Distribution Width 12.7 10.0-14.5 % Platelet Count 150 130-400 10^3/uL Mean Platelet Volume 10.9 H 7.4-10.4 FL Neutrophils (%) (Auto) 52 42-75 % Lymphocytes (%) (Auto) 37 12-44 % Monocytes (%) (Auto) 9 0-12 % Eosinophils (%) (Auto) 2 0-10 % Basophils (%) (Auto) 0 0-10 % Neutrophils # (Auto) 2.7 1.8-7.8 X 10^3 Lymphocytes # (Auto) 1.9 1.0-4.0 X 10^3 Monocytes # (Auto) 0.4 0.0-1.0 X 10^3 Eosinophils # (Auto) 0.1 0.0-0.3 10^3/uL Basophils # (Auto) 0.0 0.0-0.1 10^3/uL Sodium Level 141 135-145 MMOL/L Potassium Level 4.2 3.6-5.0 MMOL/L Chloride Level 103 98-107 MMOL/L Carbon Dioxide Level 25 21-32 MMOL/L Anion Gap 13 5-14 MMOL/L Blood Urea Nitrogen 12 7-18 MG/DL Creatinine 0.85 0.60-1.30 MG/DL Estimat Glomerular Filtration Rate > 60 BUN/Creatinine Ratio 14 Glucose Level 118 H 70-105 MG/DL Calcium Level 9.1 8.5-10.1 MG/DL Corrected Calcium 9.2 8.5-10.1 MG/DL Total Bilirubin 0.3 0.1-1.0 MG/DL Aspartate Amino Transf (AST/SGOT) 31 5-34 U/L Alanine Aminotransferase (ALT/SGPT) 43 0-55 U/L Alkaline Phosphatase 82 40-136 U/L Total Protein 6.7 6.4-8.2 GM/DL Albumin 3.9 3.2-4.5 GM/DL Lipase 32 8-78 U/L My Orders Orders - LEONIDES ALFARO MD Comprehensive Metabolic Panel (08/29/18 13:33) Lipase (08/29/18 13:33) Ua Culture If Indicated (08/29/18 13:33) Saline Lock/Iv-Start (08/29/18 13:33) Cbc With Automated Diff (08/29/18 13:33) Ct Abdomen/Pelvis W (08/29/18 13:33) Ns Iv 1000 Ml (Sodium Chloride 0.9%) (08/29/18 13:45) Hydromorphone Injection (Dilaudid Inject (08/29/18 13:45) Iopamidol 61% Injection (Isovue 300 61% (08/29/18 13:45) Sodium Chloride Flush (Catheter Flush Sy (08/29/18 13:45) Received Contrast (Contrast Received) (08/29/18 13:45) Ns (Ivpb) (Sodium Chloride 0.9% Ivpb Bag (08/29/18 13:45) Diatrizoate Meglum/Sodium 37% (Gastrogra (08/29/18 13:45) Hydromorphone Injection (Dilaudid Inject (08/29/18 15:30) Ondansetron Injection (Zofran Injectio (08/29/18 16:15) Medications Given in ED Current Medications Medications Dose Ordered Sig/Ashley Route Start Time Stop Time Status Last Admin Dose Admin Diatrizoate Meglum/ Diatrizoate Sod 30 ml ONCE ONCE PO 08/29/18 13:45 08/29/18 13:57 DC 08/29/18 14:35 30 ML Hydromorphone HCl 0.5 mg ONCE ONCE IV 08/29/18 13:45 08/29/18 13:46 DC 08/29/18 13:52 0.5 MG Hydromorphone HCl 1 mg ONCE ONCE IV 08/29/18 15:30 08/29/18 15:31 DC 08/29/18 15:26 1 MG Iopamidol 100 ml ONCE ONCE IV 08/29/18 13:45 08/29/18 13:57 DC 08/29/18 14:33 100 ML Ondansetron HCl 8 mg ONCE ONCE IVP 08/29/18 16:15 08/29/18 16:15 DC 08/29/18 16:07 8 MG Sodium Chloride 10 ml NEEDED PRN IV 08/29/18 13:45 08/29/18 16:10 DC 08/29/18 14:34 10 ML Sodium Chloride 50 ml ONCE ONCE IV 08/29/18 13:45 08/29/18 13:57 DC 08/29/18 14:33 50 ML Vital Signs/I&O 08/29/18 08/29/18 13:08 16:13 Temp 97.1 Pulse 74 65 Resp 16 16 B/P (MAP) 176/73 (107) 135/69 (91) Pulse Ox 96 98 O2 Delivery Room Air Room Air Progress Progress Note : Time: 16:01 Progress Note Pain improved, still with some mild nausea will redose Zofran Diagnostic Imaging Diagonstic Imaging: CT Plain Films/CT/US/NM/MRI: abdomen, pelvis Comments IMPRESSION: Stable midline abdominal wall fluid collection when compared with examination from 07/15/2018. Again, this most likely represents postoperative seroma. No acute feature in the abdomen or pelvis is identified. Departure Impression Primary Impression: Abdominal wall pain Additional Impression: Nausea alone Disposition: HOME, SELF-CARE Condition: Improved Departure-Patient Inst. Decision time for Depature: 16:03 Referrals: NO,LOCAL PHYSICIAN (PCP/Family) Primary Care Physician Patient Instructions: Acute Abdomen (Belly Pain), Adult (DC) Add. Discharge Instructions: Follow up with your doctor as scheduled tomorrow. Scripts Ondansetron HCl (Zofran) 8 Mg Tablet 8 MG PO Q6H PRN for NAUSEA/VOMITING-1ST LINE for 3 Days, #14 TAB 0 Refills Prov: LEONIDES ALFARO MD 08/29/18 Oxycodone HCl/Acetaminophen (Percocet 5-325 mg Tablet) 1 Each Tablet 1 TAB PO Q6H PRN for ABDOMINAL PAIN MDD 6 for 3 Days, #11 TAB Prov: LEONIDES ALFARO MD 08/29/18 LEONIDES ALFARO MD Aug 29, 2018 13:04
[2018-08-29 13:43] LABS: BASOPHILS % (AUTO) 0 % (0-10); EOSINOPHILS # (AUTO) 0.1 10^3/uL (0.0-0.3); EOSINOPHILS % (AUTO) 2 % (0-10); HEMATOCRIT 40 % (35-52); HEMOGLOBIN 13.6 G/DL (11.5-16.0); LYMPHOCYTES # (AUTO) 1.9 X 10^3 (1.0-4.0); LYMPHOCYTES % (AUTO) 37 % (12-44); MEAN CORPUSCULAR HEMOGLOBIN 32 PG (25-34); MEAN CORPUSCULAR HGB CONC 34 G/DL (32-36); MEAN CORPUSCULAR VOLUME 94 FL (80-99); MEAN PLATELET VOLUME 10.9 FL (7.4-10.4); MONOCYTES # (AUTO) 0.4 X 10^3 (0.0-1.0); MONOCYTES % (AUTO) 9 % (0-12); NEUTROPHILS # (AUTO) 2.7 X 10^3 (1.8-7.8); NEUTROPHILS % (AUTO) 52 % (42-75); PLATELET COUNT 150 10^3/uL (130-400); RED CELL DISTRIBUTION WIDTH 12.7 % (10.0-14.5); WHITE BLOOD COUNT 5.2 10^3/uL (4.3-11.0)
[2018-08-29] MEDS ORDERED: NS IV 1000 ML 1,000 ML IV SCH (13:45)
[2018-08-29] MEDS ORDERED: HYDROmorphone 2 MG/ML VIAL (DILAUDID) IV ONE ×2 (13:45→15:30)
[2018-08-29] MEDS ORDERED: NS 50 ML (IVPB) BAG IV ONE (13:45)
[2018-08-29] MEDS ORDERED: DIATRIZOATE MEGLUM/SODIUM 37% 120 ML (GASTROGRAFIN) PO ONE (13:45)
[2018-08-29] MEDS ORDERED: IOPAMIDOL 61% 100 ML (ISOVUE 300) VIAL IV ONE (13:45)
[2018-08-29] MEDS ORDERED: CATHETER FLUSH 10 ML SYR IV PRN (13:45)
[2018-08-29] MEDS ORDERED: RECEIVED CONTRAST 20 ML VIAL IV SCH (13:45)
--- NOTE | 2018-08-29 13:46 | NUR ---
PT NOTIFIED OF [employer] GETTING MEDICATIONS AND SOON I WILL GET THEM I WILL BRING THEM TO HER.
[2018-08-29 13:53] LABS: BILIRUBIN,URINE NEGATIVE (NEGATIVE); CLARITY,URINE CLEAR; COLOR,URINE YELLOW; GLUCOSE, URINE (UA) NEGATIVE (NEGATIVE); KETONES,URINE NEGATIVE (NEGATIVE); LEUKOCYTE ESTERASE ,URINE NEGATIVE (NEGATIVE); NITRITE,URINE NEGATIVE (NEGATIVE); PH,URINE 6.5 (5-9); PROTEIN,URINE 2+ (NEGATIVE); RBC,URINE >100 /HPF; UROBILINOGEN,URINE 0.2 MG/DL (NORMAL)
[2018-08-29 13:54] LABS: BACTERIA,URINE TRACE /HPF
[2018-08-29 13:57] LABS: BUN/CREATININE RATIO 14; CARBON DIOXIDE 25 MMOL/L (21-32); CHLORIDE 103 MMOL/L (98-107); CREATININE SERUM 0.85 MG/DL (0.60-1.30); GFR ESTIMATED > 60; POTASSIUM 4.2 MMOL/L (3.6-5.0); SODIUM 141 MMOL/L (135-145)
[2018-08-29 13:58] LABS: ALANINE AMINOTRANSFERASE 43 U/L (0-55); ALBUMIN 3.9 GM/DL (3.2-4.5); ALKALINE PHOSPHATASE 82 U/L (40-136); BILIRUBIN,TOTAL 0.3 MG/DL (0.1-1.0); CALCIUM 9.1 MG/DL (8.5-10.1); GLUCOSE 118 MG/DL (70-105); LIPASE 32 U/L (8-78); TOTAL PROTEIN 6.7 GM/DL (6.4-8.2)
--- NOTE | 2018-08-29 14:56 | NUR ---
RESTING IN BED WITHOUT COMPLAINTS AT THIS TIME.
--- NOTE | 2018-08-29 15:13 | NUR ---
DR DE ANDA PT WOULD LIKE SOMETHING ELSE FOR PAIN.
--- NOTE | 2018-08-29 15:16 | Diagnostic Imaging Report ---
PROCEDURE: CT abdomen and pelvis with contrast. TECHNIQUE: Multiple contiguous axial images were obtained through the abdomen and pelvis after administration of intravenous contrast. INDICATION: Lower abdominal pain. COMPARISON: Correlation is made with prior CT from 07/15/2018. FINDINGS: The lung bases are clear. The liver again demonstrates generalized low density consistent with hepatic steatosis. The gallbladder is surgically absent. No biliary ductal dilatation is seen. The pancreas and spleen are unremarkable. No adrenal mass is detected. The kidneys are unremarkable. Aorta is non-aneurysmal. Postsurgical changes to the midline anterior abdominal wall is again noted. Previously noted fluid collection in the midline superficial to the rectus musculature is again noted measuring 6.3 cm AP x 6.8 cm transverse compared with 5.7 cm x 6.8 cm on prior. No intra-abdominal fluid collection is seen. No recurrent hernia is detected. Bladder is unremarkable. No abdominal or pelvic lymphadenopathy is seen. IMPRESSION: Stable midline abdominal wall fluid collection when compared with examination from 07/15/2018. Again, this most likely represents postoperative seroma. No acute feature in the abdomen or pelvis is identified. Dictated by: Dictated on workstation # [id number]
--- NOTE | 2018-08-29 15:58 | NUR ---
IN ROOM TALKING TO PT AT THIS TIME.
[2018-08-29] MEDS ORDERED: ONDA8TAB6 PO (16:05)
[2018-08-29] MEDS ORDERED: OXYC1TAB87 PO (16:05)
[2018-08-29 16:13] VITALS: BP 135/69
[2018-08-29] MEDS ORDERED: ONDANSETRON 4 MG/2 ML (SDV) Z0FRAN IVP ONE (16:15)
== END 2018-08-29 16:10 | disposition home or self-care (01) ==
LOC: EDUNIT# 12:38 → ER FS 12:40
DX: R10.31 Right lower quadrant pain (principal); R11.0 Nausea; J45.909 Unspecified asthma, uncomplicated; K21.9 Gastro-esophageal reflux disease without esophagitis; E03.9 Hypothyroidism, unspecified; F41.9 Anxiety disorder, unspecified; F32.9 Major depressive disorder, single episode, unspecified; Z87.19 Personal history of other diseases of the digestive system; Z88.2 Allergy status to sulfonamides; Z88.1 Allergy status to other antibiotic agents; Z88.8 Allergy status to other drugs, medicaments and biological substances; Z90.710 Acquired absence of both cervix and uterus; Z90.49 Acquired absence of other specified parts of digestive tract; Z98.890 Other specified postprocedural states; Z87.891 Personal history of nicotine dependence; Z90.89 Acquired absence of other organs
CPT/HCPCS: 36415; 74177; 80053; 81000; 83690; 85025

== ENCOUNTER 2018-09-01 16:39 | Emergency (ER) | payer MEDICAID ==
[~2018-09-01] VITALS: Ht 175.3 cm; Wt 147.4 kg
[~2018-09-01 16:39] MED LIST changes: +ONDA8TAB6 PO; +OXYC1TAB87 PO
--- NOTE | 2018-09-01 17:03 | ED Abdominal Pain ---
General Chief Complaint: Abdominal/GI Problems Stated Complaint: ABD PAIN,SOB Source of Information: Patient Exam Limitations: No Limitations History of Present Illness Date Seen by Provider: Sep 01, 2018 Time Seen by Provider: 17:01 Initial Comments 48-year-old female with history of ventral hernia repair with chronic abdominal wall pain with assistance of large seroma who presents with abdominal wall pain and constipation. Patient was seen in the emergency department 3 days ago prescription for the same and had an extensive workup including lab and CT imaging studies. CT did not show any acute intra-abdominal or pelvic process but rather presence of seroma. Patient was discharged pain medication. She reports constipation with small bowel movement since discharge from the emergency department. No nausea, vomiting,. Reports good appetite. No fever or chills, sweats. No urinary frequency urgency or hematuria. Patient was instructed to follow up with primary care physician is provided a phone number which she has not contacted. Timing/Duration: Constant Severity/Quality: Cramping Location: Generalized Abdomen Radiation: No Radiation Activities at Onset: None Associated Symptoms: Denies Symptoms Allergies and Home Medications Allergies Coded Allergies: Sulfa (Sulfonamide Antibiotics) (Verified Allergy, Unknown, 06/27/18) hydroxyzine (Verified Allergy, Unknown, 06/27/18) prochlorperazine (Verified Allergy, Unknown, 12/20/16) tetracycline (Verified Allergy, Unknown, 06/27/18) Home Medications Cyclobenzaprine HCl 10 Mg Tablet, 10 MG PO TID PRN for PRN, (Reported) Furosemide 40 Mg Tablet, 40 MG PO DAILY, (Reported) Gabapentin 300 Mg Capsule, 300 MG PO PRN, (Reported) Levothyroxine Sodium 50 Mcg Tablet, 50 MCG PO DAILY, (Reported) Meloxicam 15 Mg Tablet, 15 MG PO DAILY, (Reported) Ondansetron HCl 8 Mg Tablet, 8 MG PO Q6H PRN for NAUSEA/VOMITING-1ST LINE Prescribed by: LEONIDES ALFARO on 08/29/18 1605 Oxycodone HCl/Acetaminophen 1 Each Tablet, 1 TAB PO Q6H PRN for ABDOMINAL PAIN Prescribed by: LEONIDES ALFARO on 08/29/18 1605 Trazodone HCl 100 Mg Tablet, 100 MG PO DAILY, (Reported) Venlafaxine HCl 75 Mg Tab, 75 MG PO BID, (Reported) Patient Home Medication List Home Medication List Reviewed: Yes Review of Systems Review of Systems Constitutional: see HPI EENTM: See HPI Respiratory: See HPI Cardiovascular: See HPI Gastrointestinal: See HPI Genitourinary: See HPI Musculoskeletal: see HPI Skin: see HPI Past Nozncyz-Qmamrr-Kpdzwj Hx Patient Social History Type Used: Cigarettes Former Smoker, Quit: Jun 15, 1996 2nd Hand Smoke Exposure: No Recent Foreign Travel: No Contact w/Someone Who Travel: No Recent Hopitalizations: No Immunizations Up To Date Tetanus Booster (TDap): Less than 5yrs PED Vaccines UTD: Yes Date of Pneumonia Vaccine: Apr 18, 2013 Date of Influenza Vaccine: Apr 18, 2018 Seasonal Allergies Seasonal Allergies: No Past Medical History Surgeries: Yes (HERNIA X3) Abdominal, Appendectomy, Gallbladder, Hysterectomy, Tonsillectomy Respiratory: Yes Asthma Currently Using CPAP: No Currently Using BIPAP: No Cardiac: Yes Chronic Edema/Swelling Neurological: No DEBUBBLIZER History: Hysterectomy Genitourinary: No Gastrointestinal: No Gastroesophageal Reflux, Gall Bladder Disease Musculoskeletal: No Endocrine: Yes (THYROID DISEASE) Hypothyroidsim HEENT: No Cancer: No Psychosocial: Yes Anxiety, Depression Integumentary: No Blood Disorders: No Adverse Reaction/Blood Tranf: No Physical Exam Vital Signs Capillary Refill : Height/Weight/BMI Height: 5'7.00" Weight: 325lbs. 0.0oz. 147.860570ao; 48.6 BMI Method:Stated General Appearance: WD/WN, no apparent distress, obese, other (walks a steady gait) HEENT: PERRL/EOMI, normal ENT inspection Neck: full range of motion, supple Respiratory: lungs clear Cardiovascular: regular rate, rhythm Gastrointestinal: normal bowel sounds, soft, mass (hard palpable mass under midline incision correlating with seroma.), other Critical Care Note Critical Care Total Time (minutes) Chronic medical condition with chronic abdominal pain. Recommend supportive care with PCP/surgical follow-up. Departure Impression Primary Impression: Abdominal wall pain Disposition: HOME, SELF-CARE Condition: Stable Departure-Patient Inst. Referrals: NO,LOCAL PHYSICIAN (PCP) Primary Care Physician Patient Instructions: Acute Abdomen (Belly Pain), Adult (DC) Add. Discharge Instructions: Please take Tylenol as needed for abdominal pain and drink one to 2 bottles of magnesium citrate as needed for constipation. Follow-up with local primary care physician for reevaluation. All discharge instructions reviewed with patient and/or family. Voiced understanding. YUMIKO PUGH DO Sep 01, 2018 17:03
[2018-09-01 17:17] VITALS: BP 182/86
== END 2018-09-01 17:08 | disposition home or self-care (01) ==
LOC: EDUNIT# 16:39 → ER FS 16:40
DX: R10.84 Generalized abdominal pain (principal); J45.909 Unspecified asthma, uncomplicated; K21.9 Gastro-esophageal reflux disease without esophagitis; E03.9 Hypothyroidism, unspecified; F41.9 Anxiety disorder, unspecified; F32.9 Major depressive disorder, single episode, unspecified; Z87.19 Personal history of other diseases of the digestive system; Z88.2 Allergy status to sulfonamides; Z88.1 Allergy status to other antibiotic agents; Z88.8 Allergy status to other drugs, medicaments and biological substances; Z87.891 Personal history of nicotine dependence; Z90.710 Acquired absence of both cervix and uterus; Z90.49 Acquired absence of other specified parts of digestive tract; Z90.89 Acquired absence of other organs
CPT/HCPCS: 99282

== ENCOUNTER 2018-10-03 22:15 | Emergency (ER) | payer MEDICAID ==
[~2018-10-03] VITALS: Ht 171.4 cm; Wt 136.1 kg
--- OUTSIDE RECORDS SUMMARY | 2018-10-03 22:20 | XMS REPORT | Clinical Summary ---
Author Author [facility] Organization [facility] Address Unknown Phone Unavailable Care Team Providers Care Supervisor [employer] Name Role Phone Gemini Herring MD PCP Source Comments Some departments are not documenting in the electronic medical record. If you do not see the information that you expected, contact Release of Information in the Health Information Management department at [phone] for further assistance in locating additional records.[facility] Allergies Comments Active Allergy Reactions Severity Noted [...] Taken Vital Sign Reading 07/30/2017 1:[address] Blood Pressure 160/71 07/29/2017 7:[address] Pulse 73 07/29/2017 5:[address] Temperature 36.9 C (98.4 F) - Respiratory Rate - 07/30/2017 12:[address] Oxygen Saturation 98% - Inhaled Oxygen - Concentration 07/29/2017 11:[address] Weight 127 kg (280 lb) 07/29/2017 11:[address] Height 170.2 cm (5' 7") 07/29/2017 11:[address] Body Mass Index 43.85 Plan of Treatment Health Maintenance Due Date Last Done Comments PHYSICAL (COMPREHENSIVE) 1976 EXAM HIV SCREENING 1984 DTAP/TDAP VACCINES (1 - 1987 Tdap) CERVICAL CANCER SCREENING 1999 BREAST CANCER SCREENING 2009 INFLUENZA VACCINE 01/26/2019 Results Not on filefrom Last 3 Months Advance Directives Patient has advance care planning documents, and code status on file. For more information, please contact: [facility] [address] [place] [address] Date Inactivated Comments Code Status Date Activated 12/25/2016 7:37 PM Full Code 12/23/2016 2:04 AM Provider has discussed Code Status Yes w/Patient or Family? 12/02/2016 2:44 PM Full Code 11/29/2016 5:17 AM Provider has discussed Code Status Yes w/Patient or Family?
--- OUTSIDE RECORDS SUMMARY | 2018-10-03 22:34 | XMS REPORT | Continuity of Care Document ---
Author Organization Unknown Address Unknown Allergies Active Description Code Type Severity Reaction Onset Reported/Identified Relationship to Patient Clinical Status Yes SULFA Drug Allergy N/A N/A Yes TETRACYCLINE [id number] Drug Allergy N/A N/A Yes Compazine Drug N/A Agitation Yes hydrOXYzine Drug N/A Agitation Yes sulfa drugs Drug N/A N Yes Sulfa (Sulfonamide Antibiotics) Drug Allergy N/A N/A 04/03/2014 Yes Tetracyclines Drug Allergy N/ A N/A 04/03/2014 Yes No Known Drug Allergies [id number] Drug Allergy Unknown N/A 12/20/2016 Yes prochlorperazine [id number] Drug Allergy Unknown N/A 12/20/2016 Yes hydroxyzine [id number] Drug Allergy Unknown N/A 06/27/2018 Yes Sulfa (Sulfonamide Antibiotics) [id number] Drug Allergy Unknown N/A 2017 Yes tetracycline [id number] Drug Allergy Unknown N/A 06/27/2018 Medications Medication Packaging Start Date Stop Date Route Dosage Sig LEVOTHYROXINE SODIUM ORAL 2015 ORAL 3030 daily CITALOPRAM HYDROBROMIDE ORAL 2015 ORAL 3030 daily PERCOCET ORAL 10/17/2015 ORAL 3030 three times daily DICYCLOMINE HCL ORAL 10/18/2015 11/17/2015 ORAL 757155 4 times a day TYLENOL WITH CODEINE [...] 04/03/2014 KIM MITCHELL MD 626.2 MENORRHAGIA 04/03/2014 GENEUSEBIA GARZA, DANIELA M 626.2 MENORRHAGIA 04/03/2014 KIM MITCHELL [...] LUMP OR MASS 04/23/2014 KAVON NINOS, DANIELA Hernandes 782.1 RASH 04/23/2014 KAVYAEIGATESS, DANIELA Hernandes V70.0 ROUTINE GENERAL MEDICAL EXAMINATION AT A HEALTH CARE FACILITY 04/23/2014 KAVON NINOS, DANIELA Hernandes V73.81 HPV SCREENING 04/23/2014 KAVON GARZA, DANIELA Hernandes V76.10 BREAST CANCER SCREENING 04/23/2014 KAVON GARZA, DAINELA Hernandes V76.2 CERVICAL CANCER SCREENING (PAP SMEAR) [...] BELLO APRN Ot R25.2 CRAMP AND SPASM 07/13/2017 Kacey Giron L76.34 Postprocedural seroma of skin and subcutaneous tissue follow 07/13/2017 Kacey Giron Admitting R10.31 Right lower quadrant pain 07/13/2017 Kacey Giron Final R11.2 Nausea with vomiting, unspecified 07/13/2017 PreKacey larose Final R51 Headache 07/13/2017 Kacey Giron Final T45.0X5A Adverse effect of antiallergic and antiemetic drugs, initial 06/27/2018 JAMES EDDI Ot E03.9 HYPOTHYROIDISM, UNSPECIFIED 06/27/2018 BERNPORFIRIO EDDI Ot F32.9 MAJOR DEPRESSIVE DISORDER, SINGLE EPISOD 06/27/2018 JAMES EDDI Ot F41.9 ANXIETY DISORDER, UNSPECIFIED 06/27/2018 BERNOT, EDDI Ot G43.909 MIGRAINE, UNSP, NOT INTRACTABLE, WITHOUT 06/27/2018 BERNOT, EDDI Ot G89.29 OTHER CHRONIC PAIN 06/27/2018 JAMES EDDI Ot I10 ESSENTIAL (PRIMARY) HYPERTENSION 06/27/2018 JAMES EDDI Ot J45.909 UNSPECIFIED ASTHMA, UNCOMPLICATED 06/27/2018 SOLEDAD RAMIREZIS Ot M06.9 RHEUMATOID ARTHRITIS, UNSPECIFIED 06/27/2018 JAMES EDDI Ot R53.83 OTHER FATIGUE 06/27/2018 JAMES EDDI Ot Z87.891 PERSONAL HISTORY OF NICOTINE DEPENDENCE 06/27/2018 JAMES EDDI Ot Z88.1 ALLERGY STATUS TO OTHER ANTIBIOTIC AGENT 06/27/2018 JAMES EDDI Ot Z88.2 ALLERGY STATUS TO SULFONAMIDES STATUS 06/27/2018 JAMES EDDI Ot Z88.8 ALLERGY STATUS TO OTH DRUG/MEDS/BIOL SUB 06/27/2018 JAMES EDDI Ot Z90.49 ACQUIRED ABSENCE OF OTHER SPECIFIED PART 06/27/2018 JAMES EDDI Ot Z90.710 ACQUIRED ABSENCE OF BOTH CERVIX AND UTER 06/27/2018 BERNPORFIRIO EDDI Ot Z90.89 ACQUIRED ABSENCE OF OTHER ORGANS 06/30/2018 BERNSOLEDAD MONROYIS Ot E03.9 HYPOTHYROIDISM, UNSPECIFIED 06/30/2018 BERNPORFIRIO EDDI Ot F32.9 MAJOR DEPRESSIVE DISORDER, SINGLE EPISOD 06/30/2018 BERNPORFIRIO EDDI Ot F41.9 ANXIETY DISORDER, UNSPECIFIED 06/30/2018 BERNOT, EDDI Ot G43.909 MIGRAINE, UNSP, NOT INTRACTABLE, WITHOUT 06/30/2018 JOYCEOT, EDDI Ot G89.29 OTHER CHRONIC PAIN 06/30/2018 EDDI RAMIREZ Ot I10 ESSENTIAL (PRIMARY) HYPERTENSION 06/30/2018 EDDI RAMIREZ Ot J45.909 UNSPECIFIED ASTHMA, UNCOMPLICATED 06/30/2018 EDDI RAMIREZ Ot M06.9 RHEUMATOID ARTHRITIS, UNSPECIFIED 06/30/2018 EDDI RAMIREZ Ot R53.83 OTHER FATIGUE 06/30/2018 SOLEDAD RAMIREZIS Ot Z87.891 PERSONAL HISTORY OF NICOTINE DEPENDENCE 06/30/2018 SOLEDAD RAMIREZIS Ot Z88.1 ALLERGY STATUS TO OTHER ANTIBIOTIC AGENT 06/30/2018 SOLEDAD RAMIREZIS Ot Z88.2 ALLERGY STATUS TO SULFONAMIDES STATUS 06/30/2018 SOLEDAD RAMIREZIS Ot Z88.8 ALLERGY STATUS TO OTH DRUG/MEDS/BIOL SUB 06/30/2018 SOLEDAD RAMIREZIS Ot Z90.49 ACQUIRED ABSENCE OF OTHER SPECIFIED PART 06/30/2018 EDDI RAMIREZ Ot Z90.710 ACQUIRED ABSENCE OF BOTH CERVIX AND UTER 06/30/2018 SOLEDAD RAMIREZIS Ot Z90.89 ACQUIRED ABSENCE OF OTHER ORGANS 07/08/2018 ARIES ROBERTS MD ([facility]) Ot Z02.71 ENCOUNTER FOR DISABILITY DETERMINATION 07/18/2018 ECTOR GR [employer] Ot R10.31 RIGHT LOWER QUADRANT PAIN 07/18/2018 ECTOR GR [employer] Ot Z90.49 ACQUIRED ABSENCE OF OTHER SPECIFIED PART 07/18/2018 ECTOR GR [employer] Ot Z98.890 OTHER SPECIFIED POSTPROCEDURAL STATES 07/19/2018 LUCIA IGNACIO FACC, NICHELLE FACP CCDS Ot E66.01 MORBID (SEVERE) OBESITY DUE TO EXCESS CA 07/19/2018 LUCIA IGNACIO FACC, NICHELLE FACP CCDS Ot G62.9 POLYNEUROPATHY, UNSPECIFIED 07/19/2018 NICHELLE MYERS MD, FACC FACP CCDS Ot R06.02 SHORTNESS OF BREATH 07/19/2018 LUCIA IGNACIO FACC, NICHELLE FACP CCDS Ot R07.89 OTHER CHEST PAIN 07/19/2018 NICHELLE MYERS MD, FACC FACP CCDS Ot Z68.42 BODY MASS INDEX (BMI) 45.0-49.9, ADULT 07/19/2018 NICHELLE MYERS MD, FACC FACP CCDS Ot Z79.899 OTHER TICKET SORTER (CURRENT) DRUG THERAPY 07/22/2018 LUCIA MD FACC, ALI FACP CCDS Ot E66.01 MORBID (SEVERE) OBESITY DUE TO EXCESS CA 07/22/2018 LUCIA IGNACIO [facility], ALI FACP CCDS Ot G62.9 POLYNEUROPATHY, UNSPECIFIED 07/22/2018 LUCIA IGNACIO FAC, ALI FACP CCDS Ot R06.02 SHORTNESS OF BREATH 07/22/2018 LUCIA IGNACIO [facility], ALI FACP CCDS Ot R07.89 OTHER CHEST PAIN 07/22/2018 LUCIA IGNACIO [facility], ALI FACP CCDS Ot Z68.42 BODY MASS INDEX (BMI) 45.0-49.9, ADULT 07/22/2018 LUCIA IGNACIO [facility], ALI FACP CCDS Ot Z79.899 OTHER CARE HOME (CURRENT) DRUG THERAPY 08/05/2018 ARIES ROBERTS MD ([facility]) Ot Z02.71 ENCOUNTER FOR DISABILITY DETERMINATION 08/05/2018 ECTOR GR [employer] Ot R10.31 RIGHT LOWER QUADRANT PAIN 08/05/2018 ECTOR GR [employer] Ot Z90.49 ACQUIRED ABSENCE OF OTHER SPECIFIED PART 08/05/2018 ECTOR GR [employer] Ot Z98.890 OTHER SPECIFIED POSTPROCEDURAL STATES 08/08/2018 WIGGINSRICHA KANG [employer] Ot M79.89 OTHER SPECIFIED SOFT TISSUE DISORDERS 08/08/2018 RICHA WGIGINS [employer] Ot R60.0 LOCALIZED EDEMA 08/18/2018 WIGGINSMAIAI D [employer] Ot M79.89 OTHER SPECIFIED SOFT TISSUE DISORDERS 08/18/2018 WIGGINSRICHA KANG [employer] Ot R60.0 LOCALIZED EDEMA 08/29/2018 LEONIDES ALFARO MD Ot E03.9 HYPOTHYROIDISM, UNSPECIFIED 08/29/2018 LEONIDES ALFARO MD Ot F32.9 MAJOR DEPRESSIVE DISORDER, SINGLE EPISOD 08/29/2018 LEONIDES ALFARO MD Ot F41.9 ANXIETY DISORDER, UNSPECIFIED 08/29/2018 LEONIDES ALFARO MD Ot J45.909 UNSPECIFIED ASTHMA, UNCOMPLICATED 08/29/2018 LEONIDES AFLARO MD Ot K21.9 GASTRO-ESOPHAGEAL REFLUX DISEASE WITHOUT 08/29/2018 LEONIDES ALFARO MD Ot R10.31 RIGHT LOWER QUADRANT PAIN 08/29/2018 LEONIDES ALFARO MD Ot R11.0 NAUSEA 08/29/2018 LEONIDES ALFARO MD Ot Z87.19 PERSONAL HISTORY OF OTHER DISEASES OF 08/29/2018 LEONIDES ALFARO MD Ot Z87.891 PERSONAL HISTORY OF NICOTINE DEPENDENCE 08/29/2018 LEONIDES ALFARO MD Ot Z88.1 ALLERGY STATUS TO OTHER ANTIBIOTIC AGENT 08/29/2018 LEONIDES ALFARO MD Ot Z88.2 ALLERGY STATUS TO SULFONAMIDES STATUS 08/29/2018 LEONIDES ALFARO MD Ot Z88.8 ALLERGY STATUS TO OTH DRUG/MEDS/BIOL SUB 08/29/2018 LEONIDES ALFARO MD Ot Z90.49 ACQUIRED ABSENCE OF OTHER SPECIFIED PART 08/29/2018 LEONIDES ALFARO MD Ot Z90.710 ACQUIRED ABSENCE OF BOTH CERVIX AND UTER 08/29/2018 LEONIDES ALFARO MD Ot Z90.89 ACQUIRED ABSENCE OF OTHER ORGANS 08/29/2018 LEONIDES ALFARO MD Ot Z98.890 OTHER SPECIFIED POSTPROCEDURAL STATES 08/31/2018 LEONIDES ALFARO MD Ot E03.9 HYPOTHYROIDISM, UNSPECIFIED 08/31/2018 LEONIDES ALFARO MD Ot F32.9 MAJOR DEPRESSIVE DISORDER, SINGLE EPISOD 08/31/2018 LEONIDES ALFARO MD Ot F41.9 ANXIETY DISORDER, UNSPECIFIED 08/31/2018 LEONIDES ALFARO MD Ot J45.909 UNSPECIFIED ASTHMA, UNCOMPLICATED 08/31/2018 LEONIDES ALFARO MD Ot K21.9 GASTRO-ESOPHAGEAL REFLUX DISEASE WITHOUT 08/31/2018 LEONIDES ALFARO MD Ot R10.31 RIGHT LOWER QUADRANT PAIN 08/31/2018 LEONIDES ALFARO MD Ot R11.0 NAUSEA 08/31/2018 LEONIDES ALFARO MD Ot Z87.19 PERSONAL HISTORY OF OTHER DISEASES OF 08/31/2018 LEONIDES ALFARO MD Ot Z87.891 PERSONAL HISTORY OF NICOTINE DEPENDENCE 08/31/2018 LEONIDES ALFARO MD Ot Z88.1 ALLERGY STATUS TO OTHER ANTIBIOTIC AGENT 08/31/2018 LEONIDES ALFARO MD Ot Z88.2 ALLERGY STATUS TO SULFONAMIDES STATUS 08/31/2018 LEONIDES ALFARO MD Ot Z88.8 ALLERGY STATUS TO OTH DRUG/MEDS/BIOL SUB 08/31/2018 LEONIDES ALFARO MD Ot Z90.49 ACQUIRED ABSENCE OF OTHER SPECIFIED PART 08/31/2018 LEONIDES ALFARO MD Ot Z90.710 ACQUIRED ABSENCE OF BOTH CERVIX AND UTER 08/31/2018 LEONIDES ALFARO MD Ot Z90.89 ACQUIRED ABSENCE OF OTHER ORGANS 08/31/2018 LEONIDES ALFARO MD Ot Z98.890 OTHER SPECIFIED POSTPROCEDURAL STATES 09/01/2018 PUGH DO, YUMIKO Ot E03.9 HYPOTHYROIDISM, UNSPECIFIED 09/01/2018 PUGH DO, YUMIKO Ot F32.9 MAJOR DEPRESSIVE DISORDER, SINGLE EPISOD 09/01/2018 PUGH DO, YUMIKO Ot F41.9 ANXIETY DISORDER, UNSPECIFIED 09/01/2018 PUGH DO, YUMIKO Ot J45.909 UNSPECIFIED ASTHMA, UNCOMPLICATED 09/01/2018 PUGH DO, YUMIKO Ot K21.9 GASTRO-ESOPHAGEAL REFLUX DISEASE WITHOUT 09/01/2018 PUGH DO, YUMIKO Ot R10.84 GENERALIZED ABDOMINAL PAIN 09/01/2018 PUGH DO, YUMIKO Ot Z87.19 PERSONAL HISTORY OF OTHER DISEASES OF TH 09/01/2018 PUGH DO, YUMIKO Ot Z87.891 PERSONAL HISTORY OF NICOTINE DEPENDENCE 09/01/2018 PUGH DO, YUMIKO Ot Z88.1 ALLERGY STATUS TO OTHER ANTIBIOTIC AGENT 09/01/2018 PUGH DO, YUMIKO Ot Z88.2 ALLERGY STATUS TO SULFONAMIDES STATUS 09/01/2018 PUGH DO, YUMIKO Ot Z88.8 ALLERGY STATUS TO OTH DRUG/MEDS/BIOL SUB 09/01/2018 PUGH DO, YUMIKO Ot Z90.49 ACQUIRED ABSENCE OF OTHER SPECIFIED PART 09/01/2018 PUGH DO, YUMIKO Ot Z90.710 ACQUIRED ABSENCE OF BOTH CERVIX AND UTER 09/01/2018 PUGH DO, YUMIKO Ot Z90.89 ACQUIRED ABSENCE OF OTHER ORGANS 09/05/2018 PUGH DO, YUMIKO Ot E03.9 HYPOTHYROIDISM, UNSPECIFIED 09/05/2018 PUGH DO, YUMIKO Ot F32.9 MAJOR DEPRESSIVE DISORDER, SINGLE EPISOD 09/05/2018 PUGH DO, YUMIKO Ot F41.9 ANXIETY DISORDER, UNSPECIFIED 09/05/2018 PUGH DO, YUMIKO Ot J45.909 UNSPECIFIED ASTHMA, UNCOMPLICATED 09/05/2018 PUGH DO, YUMIKO Ot K21.9 GASTRO-ESOPHAGEAL REFLUX DISEASE WITHOUT 09/05/2018 PUGH DO, YUMIKO Ot R10.84 GENERALIZED ABDOMINAL PAIN 09/05/2018 PUGH DO, YUMIKO Ot Z87.19 PERSONAL HISTORY OF OTHER DISEASES OF TH 09/05/2018 KEATON DO, YUMIKO Ot Z87.891 PERSONAL HISTORY OF NICOTINE DEPENDENCE 09/05/2018 PUGH DO, YUMIKO Ot Z88.1 ALLERGY STATUS TO OTHER ANTIBIOTIC AGENT 09/05/2018 PUGH DO, YUMIKO Ot Z88.2 ALLERGY STATUS TO SULFONAMIDES STATUS 09/05/2018 PUGH DO, YUMIKO Ot Z88.8 ALLERGY STATUS TO OT DRUG/MEDS/BIOL SUB 09/05/2018 PUGH YUMIKO Ot Z90.49 ACQUIRED ABSENCE OF OTHER SPECIFIED PART 09/05/2018 PUGH YUMIKO Ot Z90.710 ACQUIRED ABSENCE OF BOTH CERVIX AND UTER 09/05/2018 PUGH YUMIKO Ot Z90.89 ACQUIRED ABSENCE OF OTHER ORGANS Procedures Code Description [place] [address] ROUTINE VENIPUNCTURE 04/06/2014 44028 CBC 04/06/2014 75207 MAMMOGRAM, SCREENING 04/24/2014 64788 PAP SMEAR 04/24/2014 Q0091 PAP SMEAR OBTAIN SMEAR 04/24/2014 76947 ROUTINE VENIPUNCTURE 10/12/2014 52910 US LIVER ULTRASOUND 10/12/2014 42285 CMP 10/12/2014 94520 MAGNESIUM 10/12/2014 03826 TSH 10/12/2014 96406 CBC 10/12/2014 32352 Intravenous infusion, hydration; each ad GISELA RANDOLPH 07/12/2017 69545 Therapeutic, prophylactic, or diagnostic GISELA RANDOLPH 07/12/2017 32222 Therapeutic, prophylactic, or diagnostic GISELA RANDOLPH 07/12/2017 45127 Therapeutic, prophylactic, or diagnostic AGUSTÍN GISELA 07/12/2017 36645 Emergency department visit for the evalu GISELA [...] measurement (mass/volume) 4.2 g/dL 3.2-4.5 Lipase - 06/25/17 16:48 Lipase 33 U/L 8-78 Complete urinalysis [...] NEG Ketones, UA NEGATIVE mg/dL NEG Specific [place], UA 1.024 1.003-1.030 Blood, UA MODERATE NEG [...] or plasma urea nitrogen/creatinine mass ratio 17 NRG Serum or plasma creatinine measurement with calculation [...] FOR INFLUENZA A AND B ANTIGENS BY [facility] Automated blood complete blood count (hemogram) panel - 07/19/18 07:45 Blood leukocytes automated count (number/volume) 5.8 10*3/uL 4.3-11.0 Blood erythrocytes automated count (number/volume) 4.08 10*6/uL 4.35-5.85 Venous blood hemoglobin measurement (mass/volume) 13.3 g/dL 11.5-16.0 Blood hematocrit (volume fraction) 38 % 35-52 Automated erythrocyte mean corpuscular volume 94 [foz_us] 80-99 Automated erythrocyte mean corpuscular hemoglobin (mass per erythrocyte) 33 pg 25-34 Automated erythrocyte mean corpuscular hemoglobin concentration measurement ( mass/volume) 35 g/dL 32-36 Automated erythrocyte distribution width ratio 13.1 % 10.0-14.5 Automated blood platelet count (count/volume) 149 10*3/uL 130-400 Automated blood platelet mean volume measurement 10.7 [foz_us] 7.4-10.4 PT panel in platelet poor plasma by coagulation assay - 07/19/18 07:45 Prothrombin time (PT) in platelet poor plasma by coagulation assay 12.4 s 12.2-14.7 INR in platelet poor plasma or blood by coagulation assay 0.9 0.8-1.4 Activated partial thromboplastin time (aPTT) in platelet poor plasma bycoagulation assay - 07/19/18 07:45 Activated partial thromboplastin time (aPTT) in platelet poor plasma bycoagulation assay 26 s 24-35 Comprehensive metabolic panel - 07/19/18 07:45 Serum or plasma sodium measurement (moles/volume) 143 mmol/L 135-145 Serum or plasma potassium measurement (moles/volume) 3.5 mmol/L 3.6-5.0 Serum or plasma chloride measurement (moles/volume) 105 mmol/L 98-107 Carbon dioxide 28 mmol/L 21-32 Serum or plasma anion gap determination (moles/volume) 10 mmol/L 5-14 Serum or plasma urea nitrogen measurement (mass/volume) 19 mg/dL 7-18 Serum or plasma creatinine measurement (mass/volume) 1.09 mg/dL 0.60-1.30 Serum or plasma urea nitrogen/creatinine mass ratio 17 NRG Serum or plasma creatinine measurement with calculation of estimated glomerular filtration rate 54 NRG Serum or plasma glucose measurement (mass/volume) 111 mg/dL 70-105 Serum or plasma calcium measurement (mass/volume) 8.9 mg/dL 8.5-10.1 Serum or plasma total bilirubin measurement (mass/volume) 0.5 mg/dL 0.1-1.0 Serum or plasma alkaline phosphatase measurement (enzymatic activity/volume) 76 U/L 40-136 Serum or plasma aspartate aminotransferase measurement (enzymatic activity/ volume) 26 U/L 5-34 Serum or plasma alanine aminotransferase measurement (enzymatic activity/volume ) 43 U/L 0-55 Serum or plasma protein measurement (mass/volume) 6.0 g/dL 6.4-8.2 Serum or plasma albumin measurement (mass/volume) 4.0 g/dL 3.2-4.5 CALCIUM CORRECTED 8.9 mg/dL 8.5-10.1 Lipid 1996 panel - 07/19/18 07:45 Serum or plasma triglyceride measurement (mass/volume) 191 mg/dL <150 Serum or plasma cholesterol measurement (mass/volume) 248 mg/dL < 200 Serum or plasma cholesterol in HDL measurement (mass/volume) 58 mg/ dL 40-60 Cholesterol in LDL [mass/volume] in serum or plasma by direct assay 152 mg/dL 1-129 Serum or plasma cholesterol in VLDL measurement (mass/volume) 38 mg/ dL 5-40 Methicillin resistant Staphylococcus aureus (MRSA) screening culture - 07:45 Methicillin resistant Staphylococcus aureus (MRSA) screening culture NEG NRG Complete urinalysis with reflex to culture - 08/29/18 12:50 Urine color determination YELLOW NRG Urine clarity determination CLEAR NRG Urine pH measurement by test strip 6.5 5-9 Specific gravity of urine by test strip 1.025 1.016- 1.022 Urine protein assay by test strip, semi-quantitative 2+ NEGATIVE Urine glucose detection by automated test strip NEGATIVE NEGATIVE Erythrocytes detection in urine sediment by light microscopy 3+ NEGATIVE Urine ketones detection by automated test strip NEGATIVE NEGATIVE Urine nitrite detection by test strip NEGATIVE NEGATIVE Urine total bilirubin detection by test strip NEGATIVE NEGATIVE Urine urobilinogen measurement by automated test strip (mass/volume) 0.2 mg/dL NORMAL Urine leukocyte esterase detection by dipstick NEGATIVE NEGATIVE Automated urine sediment erythrocyte count by microscopy (number/high power field) > [HPF] NRG Automated urine sediment leukocyte count by microscopy (number/high power field ) NONE NRG Bacteria detection in urine sediment by light microscopy TRACE NRG Squamous epithelial cells detection in urine sediment by light microscopy 10-25 NRG Crystals detection in urine sediment by light microscopy NONE NRG Casts detection in urine sediment by light microscopy NONE NRG Mucus detection in urine sediment by light microscopy NEGATIVE NRG Complete urinalysis with reflex to culture NO NRG Complete blood count (CBC) with automated white blood cell (WBC) differential - 08/29/18 13:21 Blood leukocytes automated count (number/volume) 5.2 10*3/uL 4.3-11.0 Blood erythrocytes automated count (number/volume) 4.24 10*6/uL 4.35-5.85 Venous blood hemoglobin measurement (mass/volume) 13.6 g/dL 11.5-16.0 Blood hematocrit (volume fraction) 40 % 35-52 Automated erythrocyte mean corpuscular volume 94 [foz_us] 80-99 Automated erythrocyte mean corpuscular hemoglobin (mass per erythrocyte) 32 pg 25-34 Automated erythrocyte mean corpuscular hemoglobin concentration measurement ( mass/volume) 34 g/dL 32-36 Automated erythrocyte distribution width ratio 12.7 % 10.0-14.5 Automated blood platelet count (count/volume) 150 10*3/uL 130-400 Automated blood platelet mean volume measurement 10.9 [foz_us] 7.4-10.4 Automated blood neutrophils/100 leukocytes 52 % 42-75 Automated blood lymphocytes/100 leukocytes 37 % 12-44 Blood monocytes/100 leukocytes 9 % 0-12 Automated blood eosinophils/100 leukocytes 2 % 0-10 Automated blood basophils/100 leukocytes 0 % 0-10 Blood neutrophils automated count (number/volume) 2.7 10*3 1.8-7.8 Blood lymphocytes automated count (number/volume) 1.9 10*3 1.0-4.0 Blood monocytes automated count (number/volume) 0.4 10*3 0.0-1.0 Automated eosinophil count 0.1 10*3/uL 0.0-0.3 Automated blood basophil count (count/volume) 0.0 10*3/uL 0.0-0.1 Comprehensive metabolic panel - 08/29/18 13:21 Serum or plasma sodium measurement (moles/volume) 141 mmol/L 135-145 Serum or plasma potassium measurement (moles/volume) 4.2 mmol/L 3.6-5.0 Serum or plasma chloride measurement (moles/volume) 103 mmol/L 98-107 Carbon dioxide 25 mmol/L 21-32 Serum or plasma anion gap determination (moles/volume) 13 mmol/L 5-14 Serum or plasma urea nitrogen measurement (mass/volume) 12 mg/dL 7-18 Serum or plasma creatinine measurement (mass/volume) 0.85 mg/dL 0.60-1.30 Serum or plasma urea nitrogen/creatinine mass ratio 14 NRG Serum or plasma creatinine measurement with calculation of estimated glomerular filtration rate > NRG Serum or plasma glucose measurement (mass/volume) 118 mg/dL 70-105 Serum or plasma calcium measurement (mass/volume) 9.1 mg/dL 8.5-10.1 Serum or plasma total bilirubin measurement (mass/volume) 0.3 mg/dL 0.1-1.0 Serum or plasma alkaline phosphatase measurement (enzymatic activity/volume) 82 U/L 40-136 Serum or plasma aspartate aminotransferase measurement (enzymatic activity/ volume) 31 U/L 5-34 Serum or plasma alanine aminotransferase measurement (enzymatic activity/volume ) 43 U/L 0-55 Serum or plasma protein measurement (mass/volume) 6.7 g/dL 6.4-8.2 Serum or plasma albumin measurement (mass/volume) 3.9 g/dL 3.2-4.5 CALCIUM CORRECTED 9.2 mg/dL 8.5-10.1 Lipase - 08/29/18 13:21 Lipase 32 U/L 8-78 Encounters ACCT No. Visit Date/Time Discharge Status Pt. Type Provider Facility Loc./Unit Complaint [id number] 10/12/2014 09:53:00 10/12/2014 23:59:59 CLS Outpatient KIM MITCHELL MD [id number] 06/18/2014 09:06:00 06/18/2014 23:59:59 CLS Outpatient KAVON GARZADANIELA Cecilio [id number] 04/23/2014 15:22:00 04/23/2014 23:59:59 CLS Outpatient KIM MITCHELL MD [id number] 04/23/2014 15:22:00 04/23/2014 23:59:59 CLS Outpatient KIM MITCHELL MD [id number] 04/06/2014 11:00:00 04/06/2014 23:59:59 CLS Outpatient KIM MITCHELL MD [id number] 04/03/2014 17:30:00 04/03/2014 23:59:59 CLS Outpatient KIM MITCHELL MD [id number] 02/18/2017 08:36:00 Document Registration [id number] 09/01/2018 16:40:00 09/01/2018 17:08:00 DIS Emergency YUMIKO PUGH DO [facility] ER FS ABD PAIN,SOB [id number] 08/29/2018 12:40:00 08/29/2018 16:10:00 DIS Emergency LEONIDES ALFARO MD [facility] ER FS ABD PAIN [id number] 08/05/2018 14:05:00 08/05/2018 23:59:59 CLS Outpatient RICHA WIGGINS [employer] [facility] RAD BILATERAL LOWER EXTREMITY EDEMA [id number] 07/19/2018 07:12:00 07/19/2018 13:06:00 DIS Outpatient LUCIA IGNACIO FACC, NICHELLE PIERCE CCDS [facility] CATH CHEST DISCOMFORT,PALPITATIONS,SOB,OBESITY [id number] 07/15/2018 14:57:00 07/15/2018 23:59:59 CLS Outpatient ECTOR GR [employer] [facility] RAD RLQ ABD PAIN [id number] 07/08/2018 14:13:00 07/08/2018 23:59:59 CLS Preadmit LUCIA IGNACIO FACC, NICHELLE FACP CCDS [facility] CARD CHEST DISCOMFORT,PALPITATIONS,SOB,OBESITY [id number] 07/08/2018 14:13:00 07/08/2018 23:59:59 CLS Preadmit LUCIA IGNACIO FACC, NICHELLE PIERCE CCDS [facility] CARD CHEST DISCOMFORT,PALPITATIONS,SOB,OBESITY [id number] 07/06/2018 14:48:00 07/06/2018 23:59:59 CLS Outpatient ARIES ROBERTS MD (DDU) [facility] RT ASTHMA [id number] 06/27/2018 18:28:00 06/27/2018 22:02:00 DIS Emergency EDDI RAMIREZ [facility] ER LETHARGIC,BODY ACHES [id number] 05/14/2017 08:00:00 05/14/2017 23:59:59 CLS Preadmit JASON MOSQUERA [employer] [facility] RAD M25.562 ACUTE PAIN OF LEFT KNEE [id number] 12/20/2016 15:40:00 12/20/2016 19:24:00 DIS Emergency JEANNETTE BELLO APRN [facility] ER ABD PAIN [id number] 12/19/2016 21:59:00 12/19/2016 22:41:00 DIS Emergency RADHA AVERY DO [facility] ER L SIDE STOMACH PAIN/HOT FLASHES [id number] 10/03/2018 22:16:00 ACT Emergency LYLA LANGE MD [facility] ER FS ABD PAIN [id number] 03/18/2017 14:10:00 Document Registration [id number] 07/28/2016 14:20:42 07/28/2016 14:20:42 DIS Outpatient [facility] U [id number] 03/18/2017 08:44:00 Document Registration [id number] 07/12/2017 16:59:00 07/13/2017 00:16:00 DIS Emergency Kacey Giron [facility] ER Cardiac [id number] 09/13/2018 14:20:00 09/13/2018 23:59:[address] [facility] Outpatient [facility] [id number] 05/04/2017 08:40:00 Document Registration [id number] 03/17/2017 09:40:00 Document Registration
--- NOTE | 2018-10-03 23:08 | ED Abdominal Pain ---
General Chief Complaint: Abdominal/GI Problems Stated Complaint: ABD PAIN Nursing Triage Note: Patient c/o of abdomial pain. States it feels as though a belt is being tightened around her abdomen. She also states that when she sits up she can feel it bulging out. Sepsis Screen: No Definite Risk Source of Information: Patient History of Present Illness Date Seen by Provider: Oct 03, 2018 Time Seen by Provider: 23:08 Initial Comments 48 yo F presents to ED with complaints of feeling like there is a band around her upper abdomen all day today. She has recurrent and chronic abdominal pain since having abdominal surgery revision with mesh placement and has been seen in the ED and clinic on multiple occasions. She states that she came in tonight because the pain became unbearable and she was feeling like it was so tight that at times she felt she could not breath. She has had nausea as well. she has had 3 bowel movements today. She has a known seroma that has had to be drained several times by Dr. Valentine through the clinic as well. The most recent imaging done through [facility] was August 29. She states several times during her presentation that she would like something for pain but that she really would prefer to find out what was causing the pain and get it fixed rather than just keep taking pain medicine. She denies any fever or chills. She has had a headache for last 3 days and thinks it might be related to starting Celebrex. She has not had any blood in her stools or urine. She denies any dysuria. Allergies and Home Medications Allergies Coded Allergies: Sulfa (Sulfonamide Antibiotics) (Verified Allergy, Unknown, 06/27/18) hydroxyzine (Verified Allergy, Unknown, 06/27/18) prochlorperazine (Verified Allergy, Unknown, 12/20/16) tetracycline (Verified Allergy, Unknown, 06/27/18) Home Medications Cyclobenzaprine HCl 10 Mg Tablet, 10 MG PO TID PRN for PRN, (Reported) Furosemide 40 Mg Tablet, 40 MG PO DAILY, (Reported) Gabapentin 300 Mg Capsule, 300 MG PO PRN, (Reported) Levothyroxine Sodium 50 Mcg Tablet, 50 MCG PO DAILY, (Reported) Meloxicam 15 Mg Tablet, 15 MG PO DAILY, (Reported) Ondansetron HCl 8 Mg Tablet, 8 MG PO Q6H PRN for NAUSEA/VOMITING-1ST LINE Prescribed by: LEONIDES ALFARO on 08/29/18 1605 Oxycodone HCl/Acetaminophen 1 Each Tablet, 1 TAB PO Q6H PRN for ABDOMINAL PAIN Prescribed by: LEONIDES ALFARO on 08/29/18 1605 Trazodone HCl 100 Mg Tablet, 100 MG PO DAILY, (Reported) Venlafaxine HCl 75 Mg Tab, 75 MG PO BID, (Reported) Patient Home Medication List Home Medication List Reviewed: Yes Review of Systems Review of Systems Constitutional: see HPI; No chills, No fever; malaise EENTM: No Symptoms Reported Respiratory: Shortness of Air (when she feels the tight band around her upper abdomen) Cardiovascular: No Symptoms Reported Gastrointestinal: Abdominal Pain (diffuse chronic abdominal pain but upper abdominal tightness t hat was new today), Constipated (chronic issue), Nausea; Denies Rectal Bleeding Genitourinary: Denies Burning, Denies Discharge, Denies Frequency, Denies Flank Pain, Denies Hematuria, Denies Incontinence, Denies Pain, Denies Urgency Musculoskeletal: no symptoms reported Skin: no symptoms reported Psychiatric/Neurological: Anxiety Past Rvvrqki-Xbeqkn-Ckvzhk Hx Past Med/Social Hx: Reviewed Nursing Past Med/Soc Hx Patient Social History Alcohol Use: Denies Use Recreational Drug Use: No Smoking Status: Never a Smoker Type Used: Cigarettes Former Smoker, Quit: Jun 15, 1996 2nd Hand Smoke Exposure: No Recent Foreign Travel: No Contact w/Someone Who Travel: No Recent Infectious Disease Expo: No Recent Hopitalizations: No Physical Abuse: No Sexual Abuse: No Mistreated: No Fear: No Immunizations Up To Date Tetanus Booster (TDap): Less than 5yrs PED Vaccines UTD: Yes Date of Pneumonia Vaccine: Apr 18, 2013 Date of Influenza Vaccine: Apr 18, 2018 Seasonal Allergies Seasonal Allergies: No Past Medical History Surgeries: Yes (HERNIA X3) Abdominal, Appendectomy, Gallbladder, Hysterectomy, Tonsillectomy Respiratory: Yes Asthma Currently Using CPAP: No Currently Using BIPAP: No Cardiac: Yes Chronic Edema/Swelling Neurological: No 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 0.0oz. 136.712965nm; 48.6 BMI Method:Stated General Appearance: no apparent distress, obese HEENT: PERRL/EOMI, normal ENT inspection, pharynx normal Neck: non-tender, full range of motion, supple Respiratory: chest non-tender, lungs clear, normal breath sounds Cardiovascular: normal peripheral pulses, regular rate, rhythm Gastrointestinal: normal bowel sounds, soft, no pulsatile mass, guarding; No rebound; tenderness (diffuse pain with palpation and pt grabs my hand repeatedly to push me away with any palpation, but especially around midline scar); No hernia; mass (midline mass palpated around scar consistent with known seroma) Extremities: normal range of motion, non-tender Neurologic/Psychiatric: alert, normal mood/affect, oriented x 3 Skin: normal color, warm/dry Progress/Results/Core Measures Results/Orders Lab Results Laboratory Tests Test 10/04/18 00:00 Range/Units White Blood Count 6.3 4.3-11.0 10^3/uL Red Blood Count 4.34 L 4.35-5.85 10^6/uL Hemoglobin 13.9 11.5-16.0 G/DL Hematocrit 41 35-52 % Mean Corpuscular Volume 94 80-99 FL Mean Corpuscular Hemoglobin 32 25-34 PG Mean Corpuscular Hemoglobin Concent 34 32-36 G/DL Red Cell Distribution Width 12.5 10.0-14.5 % Platelet Count 149 130-400 10^3/uL Mean Platelet Volume 10.8 H 7.4-10.4 FL Neutrophils (%) (Auto) 47 42-75 % Lymphocytes (%) (Auto) 40 12-44 % Monocytes (%) (Auto) 10 0-12 % Eosinophils (%) (Auto) 2 0-10 % Basophils (%) (Auto) 0 0-10 % Neutrophils # (Auto) 3.0 1.8-7.8 X 10^3 Lymphocytes # (Auto) 2.5 1.0-4.0 X 10^3 Monocytes # (Auto) 0.6 0.0-1.0 X 10^3 Eosinophils # (Auto) 0.1 0.0-0.3 10^3/uL Basophils # (Auto) 0.0 0.0-0.1 10^3/uL Sodium Level 143 135-145 MMOL/L Potassium Level 4.0 3.6-5.0 MMOL/L Chloride Level 103 98-107 MMOL/L Carbon Dioxide Level 30 21-32 MMOL/L Anion Gap 10 5-14 MMOL/L Blood Urea Nitrogen 19 H 7-18 MG/DL Creatinine 0.99 0.60-1.30 MG/DL Estimat Glomerular Filtration Rate 60 BUN/Creatinine Ratio 19 Glucose Level 114 H 70-105 MG/DL Calcium Level 9.2 8.5-10.1 MG/DL Corrected Calcium 9.2 8.5-10.1 MG/DL Total Bilirubin 0.2 0.1-1.0 MG/DL Aspartate Amino Transf (AST/SGOT) 20 5-34 U/L Alanine Aminotransferase (ALT/SGPT) 33 0-55 U/L Alkaline Phosphatase 90 40-136 U/L Total Protein 6.6 6.4-8.2 GM/DL Albumin 4.0 3.2-4.5 GM/DL Lipase 38 8-78 U/L My Orders Orders - LYLA LANGE MD Comprehensive Metabolic Panel (10/03/18 23:44) Lipase (10/03/18 23:44) Saline Lock/Iv-Start (10/03/18 23:44) Cbc With Automated Diff (10/03/18 23:44) Ct Abdomen/Pelvis Wo (10/03/18 23:44) Morphine Injection (Morphine Injection (10/03/18 23:44) Ondansetron Injection (Zofran Injectio (10/03/18 23:45) Ns Iv 1000 Ml (Sodium Chloride 0.9%) (10/03/18 23:45) Morphine Injection (Morphine Injection (10/04/18 02:23) Ketorolac Injection (Toradol Injection) (10/04/18 02:30) Rx-Ondansetron Po (Rx-Zofran Po) (10/04/18 02:30) Medications Given in ED Current Medications Medications Dose Ordered Sig/Ashley Route Start Time Stop Time Status Last Admin Dose Admin Ondansetron HCl 4 mg ONCE ONCE IVP 10/03/18 23:45 10/03/18 23:47 DC 10/04/18 00:24 4 MG Vital Signs/I&O 10/03/18 22:26 Temp 97.6 Pulse 69 Resp 18 B/P (MAP) 157/85 (109) Pulse Ox 97 O2 Delivery Room Air Blood Pressure Mean: 109 Progress Progress Note #1: Time: 23:45 Progress Note will check labs and CT scan of abdomen to look for any change from her baseline since she has had repeated visits. With CT will see if she has any evidence of obstruction or blockage or if the seroma seems to be changed. With labs will be evaluating for any acute change in her blood count or WBC to see if she might have signs of infection or bleeding, chemistry for liver and renal and pancreatic function to see if she might have any changes to account for her tightness and pain sensation in her upper abdomen. Try IVF with Zofran for nausea and Morphine for pain to try and help her symptoms. Progress Note #2: Time: 02:00 Progress Note On recheck her labs are all stable without acute significant abnormality and CT scan was reported out as no acute change from prior imaging in June and August 2018. Patient reports pain is a little better in her abdomen but still comes and goes at times in sharp pain like spasms with hard knots in her abdomen. her headache is still the same. Will repeat a dose of Morphine and try a dose of Toradol along with it to see if that helps a little better. Will send with a take home pack of Zofran ODT and have her check with clinic during the day. Encouraged to check with pcp about possible referral to abdominal wall/mesh surgeon specialist at or specialty hospital in to see if that might give her some options for second opinion or better relief of her chronic pain and symptoms. Diagnostic Imaging Diagonstic Imaging: CT Plain Films/CT/US/NM/MRI: abdomen, pelvis Comments Similar to July 15, 2018 and August 29, 2018 imaging. no new acute findings, according to [facility] reading from Dr. Roslyn Nick at 0102 am Reviewed: [facility] Impression Primary Impression: Abdominal wall pain Additional Impressions: Seroma, postoperative Qualified Codes: L76.34 - Postprocedural seroma of skin and subcutaneous tissue following other procedure Generalized headache Disposition: 01 HOME, SELF-CARE Condition: Stable Departure-Patient Inst. Decision time for Depature: 02:28 Referrals: NO,LOCAL PHYSICIAN (PCP/Family) Primary Care Physician Patient Instructions: Abdominal Hernia Repair (DC), Chronic Pain (DC), Headache , Adult Add. Discharge Instructions: Check with your doctor about the recurrent pain in your abdomen and since you have had the abdominal mesh placed. You may need to see a specialist that deals with Abdominal Mesh and Chronic pain such as at [facility]. You may need to have your surgeon see about draining the seroma of fluid again since it has reaccumulated up to 6.5 cm in size again on CT scan tonight. All discharge instructions reviewed with patient and/or family. Voiced understanding. LYLA LANGE MD Oct 03, 2018 23:08
[2018-10-03] MEDS ORDERED: morphine INJ 10 MG/ML 1ML (SYR OR VIAL) IVP STA (23:44)
[2018-10-03] MEDS ORDERED: ONDANSETRON 4 MG/2 ML (SDV) Z0FRAN IVP ONE (23:45)
[2018-10-03] MEDS ORDERED: NS IV 1000 ML 1,000 ML IV SCH (23:45)
[2018-10-04 00:21] LABS: HEMATOCRIT 41 % (35-52); HEMOGLOBIN 13.9 G/DL (11.5-16.0); MEAN CORPUSCULAR HEMOGLOBIN 32 PG (25-34); MEAN CORPUSCULAR VOLUME 94 FL (80-99); WHITE BLOOD COUNT 6.3 10^3/uL (4.3-11.0)
[2018-10-04 00:22] LABS: BASOPHILS % (AUTO) 0 % (0-10); EOSINOPHILS # (AUTO) 0.1 10^3/uL (0.0-0.3); EOSINOPHILS % (AUTO) 2 % (0-10); LYMPHOCYTES # (AUTO) 2.5 X 10^3 (1.0-4.0); LYMPHOCYTES % (AUTO) 40 % (12-44); MEAN CORPUSCULAR HGB CONC 34 G/DL (32-36); MEAN PLATELET VOLUME 10.8 FL (7.4-10.4); MONOCYTES # (AUTO) 0.6 X 10^3 (0.0-1.0); MONOCYTES % (AUTO) 10 % (0-12); NEUTROPHILS % (AUTO) 47 % (42-75); PLATELET COUNT 149 10^3/uL (130-400); RED CELL DISTRIBUTION WIDTH 12.5 % (10.0-14.5)
[2018-10-04 00:49] LABS: CREATININE SERUM 0.99 MG/DL (0.60-1.30)
[2018-10-04 00:50] LABS: BILIRUBIN,TOTAL 0.2 MG/DL (0.1-1.0); CALCIUM 9.2 MG/DL (8.5-10.1); TOTAL PROTEIN 6.6 GM/DL (6.4-8.2)
[2018-10-04] MEDS ORDERED: morphine INJ 10 MG/ML 1ML (SYR OR VIAL) IVP STA (02:23)
[2018-10-04] MEDS ORDERED: RX-ONDANSETRON 4 MG ODT (ZOFRAN) PPK #4 PO PRN (02:30)
[2018-10-04] MEDS ORDERED: KETOROLAC 30 MG/ML VIAL IVP ONE (02:30)
[2018-10-04 02:50] VITALS: BP 155/75
--- NOTE | 2018-10-04 05:55 | Diagnostic Imaging Report ---
PROCEDURE: CT abdomen and pelvis without contrast. TECHNIQUE: Multiple contiguous axial images were obtained through the abdomen and pelvis without the use of intravenous contrast. Auto Exposure Controls were utilized during the CT exam to meet ALARA standards for radiation dose reduction. INDICATION: Abdominal pain. Comparison is made to the study of 08/29/2018. FINDINGS: Unenhanced images of the liver and spleen reveal no focal abnormality. Gallbladder is surgically absent without significant biliary ductal dilatation. There is no evidence of pancreatic or adrenal gland abnormality. Unenhanced images of the kidneys are stable and unremarkable. There is mild diffuse lumbar degenerative disc disease. Surgical changes are again seen at the level of the cecum. There is anterior abdominal wall mesh with apparent 7 x 4 cm fluid collection just superficial to the mesh which may represent seroma. Unopacified bladder is unremarkable. IMPRESSION: Redemonstration, possibly indicating recurrence, of anterior abdominal wall fluid collection which may represent postoperative seroma. Correlation site of patient's pain would be useful. Otherwise, no acute abnormality or adverse change is detected. Dictated by: Dictated on workstation # [id number]
== END 2018-10-04 02:50 | disposition home or self-care (01) ==
LOC: EDUNIT# 22:15 → ER FS 22:16
DX: R10.84 Generalized abdominal pain (principal); L76.34 Postprocedural seroma of skin and subcutaneous tissue following other procedure; R51 Headache; J45.909 Unspecified asthma, uncomplicated; K21.9 Gastro-esophageal reflux disease without esophagitis; E03.9 Hypothyroidism, unspecified; F41.9 Anxiety disorder, unspecified; F32.9 Major depressive disorder, single episode, unspecified; Z88.2 Allergy status to sulfonamides; Z88.8 Allergy status to other drugs, medicaments and biological substances; Z88.1 Allergy status to other antibiotic agents; Z87.891 Personal history of nicotine dependence; Z90.710 Acquired absence of both cervix and uterus; Z90.49 Acquired absence of other specified parts of digestive tract; Z90.89 Acquired absence of other organs
CPT/HCPCS: 36415; 74176; 80053; 83690; 85025

== ENCOUNTER 2018-11-03 02:45 | Emergency (ER) | payer MEDICAID ==
[~2018-11-03] VITALS: Ht 171.4 cm; Wt 140.6 kg
--- OUTSIDE RECORDS SUMMARY | 2018-11-03 02:51 | XMS REPORT | Clinical Summary ---
Author Author [facility] Organization [facility] Address Unknown Phone Unavailable Care Team Providers Care Wire Bender Name Role Phone Gemini Herring MD PCP Source Comments Some departments are not documenting in the electronic medical record. If you do not see the information that you expected, contact Release of Information in the Health Information Management department at [phone] for further assistance in locating additional records.[facility] Allergies Comments Active Allergy Reactions Severity Noted [...] Taken Vital Sign Reading 07/30/2017 1:00 AM LUMBER INSPECTOR Blood Pressure 160/71 07/29/2017 7:25 PM LUMBER INSPECTOR Pulse 73 07/29/2017 5:45 PM LUMBER INSPECTOR Temperature 36.9 C (98.4 F) - Respiratory Rate - 07/30/2017 12:58 AM LUMBER INSPECTOR Oxygen Saturation 98% - Inhaled Oxygen - Concentration 07/29/2017 11:52 AM LUMBER INSPECTOR Weight 127 kg (280 lb) 07/29/2017 11:52 AM LUMBER INSPECTOR Height 170.2 cm (5' 7") 07/29/2017 11:52 AM LUMBER INSPECTOR Body Mass Index 43.85 Plan of Treatment Health Maintenance Due Date Last Done Comments PHYSICAL (COMPREHENSIVE) 1976 EXAM HIV SCREENING 1984 DTAP/TDAP VACCINES (1 - 1987 Tdap) CERVICAL CANCER SCREENING 1999 BREAST CANCER SCREENING 2009 INFLUENZA VACCINE 03/28/2019 Results Not on filefrom Last 3 Months Advance Directives Patient has advance care planning documents, and code status on file. For more information, please contact: [facility] [address] [place] [address] Date Inactivated Comments Code Status Date Activated 12/25/2016 7:37 PM Full Code 12/23/2016 2:04 AM Provider has discussed Code Status Yes w/Patient or Family? 12/02/2016 2:44 PM Full Code 11/29/2016 5:17 AM Provider has discussed Code Status Yes w/Patient or Family?
--- OUTSIDE RECORDS SUMMARY | 2018-11-03 03:02 | XMS REPORT | Continuity of Care Document ---
Author Organization Unknown Address Unknown Allergies Active Description Code Type Severity Reaction Onset Reported/Identified Relationship to Patient Clinical Status Yes Compazine Drug N/A Agitation Yes hydrOXYzine Drug N/A Agitation Yes sulfa drugs Drug N/A N Yes Sulfa (Sulfonamide Antibiotics) Drug Allergy N/A N/A 04/03/2014 Yes Tetracyclines Drug Allergy N/ A N/A 04/03/2014 Medications Medication Packaging Start Date Stop Date Route Dosage Sig furosemide 07/12/2017 PO 40 mg / 1 [...] KIM MITCHELL MD 626.2 MENORRHAGIA 04/03/2014 KAVON NINOS, DANIELA Hernandes 626.2 MENORRHAGIA 04/03/2014 KIM MITCHELL [...] V76.2 CERVICAL CANCER SCREENING (PAP SMEAR) 04/23/2014 GENRADHAEIPRIMITIVO DDS, DANIELA M 611.72 BREAST LUMP OR MASS 04/23/2014 GENSWEIDER DDS, DANIELA M 782.1 RASH 04/23/2014 GENSWEIDER DDS, DANIELA M V70.0 ROUTINE GENERAL MEDICAL EXAMINATION AT A HEALTH CARE FACILITY 04/23/2014 KAVYAEIDER DDS, DANIELA M V73.81 HPV SCREENING 04/23/2014 KAVYAEIPRIMITIVO DDS, DANIELA M V76.10 BREAST CANCER SCREENING 04/23/2014 [...] MITCHELL MD 790.6 LIVER FUNCTION TEST, ABNORMAL 07/13/2017 Prewett, Kcaey Lares L76.34 Postprocedural seroma of skin and subcutaneous tissue follow 07/13/2017 Kacey Giron Admitting R10.31 Right lower quadrant pain 07/13/2017 PreKacey larose Final R11.2 Nausea with vomiting, unspecified 07/13/2017 Kacey Giron Final R51 Headache 07/13/2017 Kacey Giron Final T45.0X5A Adverse effect of antiallergic and antiemetic drugs, initial Procedures Code [place] [address] ROUTINE VENIPUNCTURE 04/06/2014 86231 CBC 04/06/2014 17411 MAMMOGRAM, SCREENING 04/24/2014 28939 PAP SMEAR 04/24/2014 Q0091 PAP SMEAR OBTAIN SMEAR 04/24/2014 46204 ROUTINE VENIPUNCTURE 10/12/2014 46557 US LIVER ULTRASOUND 10/12/2014 83721 CMP 10/12/2014 46165 MAGNESIUM 10/12/2014 14292 TSH 10/12/2014 18671 CBC 10/12/2014 32247 Intravenous infusion, hydration; each ad GISELA RANDOLPH 07/12/2017 36020 Therapeutic, prophylactic, or diagnostic GISELA RANDOLPH 07/12/2017 11117 Therapeutic, prophylactic, or diagnostic GISELA RANDOLPH 07/12/2017 90654 Therapeutic, prophylactic, or diagnostic GISELA RANDOLPH 07/12/2017 20806 Emergency department visit for the evalu GISELA RANDOLPH 07/12/2017 Results Test Result Range BNP - 03/17/17 10:46 B-Type Natriuretic Peptide [...] NEG Ketones, UA NEGATIVE mg/dL NEG Specific [place], UA 1.024 1.003-1.030 Blood, UA MODERATE NEG [...] Status Pt. Type Provider Facility Loc./Unit Complaint [id number] 10/12/2014 09:53:00 10/12/2014 23:59:59 CLS Outpatient KIM MITCHELL MD [id number] 06/18/2014 09:06:00 06/18/2014 23:59:59 CLS Outpatient KAVON GARZADANIELA Cecilio [id number] 04/23/2014 15:22:00 04/23/2014 23:59:59 CLS Outpatient KIM MITCHELL MD [id number] 04/23/2014 15:22:00 04/23/2014 23:59:59 CLS Outpatient KIM MITCHELL MD [id number] 04/06/2014 11:00:00 04/06/2014 23:59:59 CLS Outpatient KIM MITCHELL MD [id number] 04/03/2014 17:30:00 04/03/2014 23:59:59 CLS Outpatient KIM MITCHELL MD [id number] 07/12/2017 16:59:00 07/13/2017 00:16:00 DIS Emergency [facility] ER Cardiac [id number] 10/13/2018 16:20:00 10/13/2018 23:59:59 CLS Outpatient ELAINA LILLY [facility] [id number] 05/04/2017 08:40:00 Document Registration [id number] 03/17/2017 09:40:00 Document Registration
--- NOTE | 2018-11-03 03:33 | ED General ---
General Stated Complaint: LIGHT HEADED;HEADACHE Source of Information: Patient History of Present Illness Date Seen by Provider: November 03, 2018 Time Seen by Provider: 03:33 Initial Comments 48-year-old female presenting with complaints of acute onset of feeling hot and flushed as well as sensation of near-syncope. She is here with her girlfriend as a visitor. She states that she was anemic the bedside and suddenly became hot and felt like she was going to pass out. She became short of breath and started having aching in the left side of her chest. She states that she has never felt like this before. She was not doing anything when this came on. She was feeling worse with movement and exertion. She felt like she would pass out if she tried to do anything. She also felt nauseated like she might throw up but she moved. She denies having sensations like this in the past. She denies having any cardiac history. She did state that she saw Dr. Hicks earlier in the day and he had told her she needed to have a sleep study done because he was concerned she may have obstructive sleep apnea. Allergies and Home Medications Allergies Coded Allergies: Sulfa (Sulfonamide Antibiotics) (Verified Allergy, Unknown, 06/27/18) hydroxyzine (Verified Allergy, Unknown, 06/27/18) prochlorperazine (Verified Allergy, Unknown, 12/20/16) tetracycline (Verified Allergy, Unknown, 06/27/18) Home Medications Cyclobenzaprine HCl 10 Mg Tablet, 10 MG PO TID PRN for PRN, (Reported) Furosemide 40 Mg Tablet, 40 MG PO DAILY, (Reported) Gabapentin 300 Mg Capsule, 300 MG PO PRN, (Reported) Levothyroxine Sodium 50 Mcg Tablet, 50 MCG PO DAILY, (Reported) Meloxicam 15 Mg Tablet, 15 MG PO DAILY, (Reported) Ondansetron HCl 8 Mg Tablet, 8 MG PO Q6H PRN for NAUSEA/VOMITING-1ST LINE Prescribed by: LEONIDES ALFARO on 08/29/18 1605 Oxycodone HCl/Acetaminophen 1 Each Tablet, 1 TAB PO Q6H PRN for ABDOMINAL PAIN Prescribed by: LEONIDES ALFARO on 08/29/18 1605 Trazodone HCl 100 Mg Tablet, 100 MG PO DAILY, (Reported) Venlafaxine HCl 75 Mg Tab, 75 MG PO BID, (Reported) Patient Home Medication List Home Medication List Reviewed: Yes Review of Systems Review of Systems Constitutional: chills; No fever; malaise (sudden onset) EENTM: no symptoms reported Respiratory: cough, dyspnea on exertion, short of breath Cardiovascular: chest pain (he came to the left side of her chest that started chest now when she felt like she was going to pass out) Gastrointestinal: abdominal pain (chronic diffuse abdominal pain), nausea; No vomiting Genitourinary: no symptoms reported Musculoskeletal: no symptoms reported Skin: no symptoms reported Psychiatric/Neurological: Anxiety Past Ekbpfwn-Hbrehp-Tqsscs Hx Past Med/Social Hx: Reviewed Nursing Past Med/Soc Hx Patient Social History Type Used: Cigarettes Former Smoker, Quit: Jun 15, 1996 2nd Hand Smoke Exposure: No Recent Foreign Travel: No Contact w/Someone Who Travel: No Recent Hopitalizations: No Immunizations Up To Date Tetanus Booster (TDap): Less than 5yrs PED Vaccines UTD: Yes Date of Pneumonia Vaccine: Apr 18, 2013 Date of Influenza Vaccine: Apr 18, 2018 Seasonal Allergies Seasonal Allergies: No Past Medical History Surgeries: Yes (HERNIA X3) Abdominal, Appendectomy, Gallbladder, Hysterectomy, Tonsillectomy Respiratory: Yes Asthma Currently Using CPAP: No Currently Using BIPAP: No Cardiac: Yes Chronic Edema/Swelling 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 0.0oz. 136.436297gy; 48.6 BMI Method:Stated General Appearance: No Apparent Distress, WD/WN, Obese HEENT: PERRL/EOMI, TMs Normal, Pharynx Normal Neck: Non Tender, Supple Respiratory: Lungs Clear, Normal Breath Sounds, No Accessory Muscle Use, No Respiratory Distress; No Respiratory Distress, No Rhonci, No Stridor, No Wheezing; Other (mild tenderness to left lateral upper chest where she states it feels like a "charley horse aching in her chest") Cardiovascular: Regular Rate, Rhythm, No Gallop, No JVD, No Murmur, Normal Peripheral Pulses Gastrointestinal: Normal Bowel Sounds, No Pulsatile Mass, Soft, Distended ( obese); No Rebound; Tenderness (mild diffuse) Rectal: Deferred Extremity: Normal Range of Motion Neurologic/Psychiatric: Alert, Oriented x3 Skin: Normal Color, Warm/Dry Progress/Results/Core Measures Suspected Sepsis SIRS Temperature: Pulse: Respiratory Rate: Laboratory Tests 11/03/18 04:50: White Blood Count 8.8 Blood Pressure / Mean: Laboratory Tests 11/03/18 04:50: Creatinine 1.03, INR Comment 0.9, Platelet Count 162, Total Bilirubin 0.3 Results/Orders Lab Results Laboratory Tests Test 11/03/18 04:50 Range/Units White Blood Count 8.8 4.3-11.0 10^3/uL Red Blood Count 4.39 4.35-5.85 10^6/uL Hemoglobin 14.1 11.5-16.0 G/DL Hematocrit 41 35-52 % Mean Corpuscular Volume 93 80-99 FL Mean Corpuscular Hemoglobin 32 25-34 PG Mean Corpuscular Hemoglobin Concent 35 32-36 G/DL Red Cell Distribution Width 12.4 10.0-14.5 % Platelet Count 162 130-400 10^3/uL Mean Platelet Volume 10.4 7.4-10.4 FL Neutrophils (%) (Auto) 48 42-75 % Lymphocytes (%) (Auto) 42 12-44 % Monocytes (%) (Auto) 9 0-12 % Eosinophils (%) (Auto) 1 0-10 % Basophils (%) (Auto) 0 0-10 % Neutrophils # (Auto) 4.2 1.8-7.8 X 10^3 Lymphocytes # (Auto) 3.7 1.0-4.0 X 10^3 Monocytes # (Auto) 0.8 0.0-1.0 X 10^3 Eosinophils # (Auto) 0.1 0.0-0.3 10^3/uL Basophils # (Auto) 0.0 0.0-0.1 10^3/uL Prothrombin Time 12.8 12.2-14.7 SEC INR Comment 0.9 0.8-1.4 Activated Partial Thromboplast Time 26 24-35 SEC Sodium Level 137 135-145 MMOL/L Potassium Level 3.4 L 3.6-5.0 MMOL/L Chloride Level 95 L 98-107 MMOL/L Carbon Dioxide Level 21 21-32 MMOL/L Anion Gap 21 H 5-14 MMOL/L Blood Urea Nitrogen 17 7-18 MG/DL Creatinine 1.03 0.60-1.30 MG/DL Estimat Glomerular Filtration Rate 57 BUN/Creatinine Ratio 17 Glucose Level 126 H 70-105 MG/DL Calcium Level 9.1 8.5-10.1 MG/DL Corrected Calcium 8.9 8.5-10.1 MG/DL Magnesium Level 1.9 1.8-2.4 MG/DL Total Bilirubin 0.3 0.1-1.0 MG/DL Aspartate Amino Transf (AST/SGOT) 19 5-34 U/L Alanine Aminotransferase (ALT/SGPT) 36 0-55 U/L Alkaline Phosphatase 95 40-136 U/L Troponin T 8 <=10 NG/L Pro-B-Type Natriuretic Peptide 27.9 <75.0 PG/ML Total Protein 7.0 6.4-8.2 GM/DL Albumin 4.3 3.2-4.5 GM/DL Lipase 31 8-78 U/L My Orders Orders - LYLA LANGE MD Cbc With Automated Diff (11/03/18 03:47) Magnesium (11/03/18 03:47) Chest 1 View Ap/Pa Only (11/03/18 03:47) Ekg Tracing (11/03/18 03:47) Comprehensive Metabolic Panel (11/03/18 03:47) Protime With Inr (11/03/18 03:47) Partial Thromboplastin Time (11/03/18 03:47) O2 (11/03/18 03:47) Monitor-Rhythm Ecg Trace Only (11/03/18 03:47) Aspirin Chewable Tablet (Baby Aspirin Ch (11/03/18 04:00) Ed Iv/Invasive Line Start (11/03/18 03:47) Lipase (11/03/18 03:47) Troponin T (11/03/18 03:47) Probnp Fs (11/03/18 03:47) Albuterol/Ipra Inhalation Soln (Duoneb I (11/03/18 04:00) Svn Small Volume Nebulizer (11/03/18 03:47) Ondansetron Injection (Zofran Injectio (11/03/18 04:00) Ketorolac Injection (Toradol Injection) (11/03/18 05:18) Medications Given in ED Current Medications Medications Dose Ordered Sig/Ashley Route Start Time Stop Time Status Last Admin Dose Admin Albuterol/ Ipratropium 3 ml ONCE ONCE INH 11/03/18 04:00 11/03/18 04:01 DC 11/03/18 04:05 3 ML Aspirin 324 mg ONCE ONCE PO 11/03/18 04:00 11/03/18 04:01 DC 11/03/18 04:05 324 MG Ondansetron HCl 4 mg ONCE ONCE IVP 11/03/18 04:00 11/03/18 04:01 DC 11/03/18 04:05 4 MG Vital Signs/I&O 11/03/18 11/03/18 02:53 05:00 Temp 97.3 Pulse 73 Resp 18 B/P (MAP) 116/63 (80) Pulse Ox 93 95 O2 Delivery Nasal Cannula O2 Flow Rate 2.00 FiO2 95 Capillary Refill : Progress Note #1: Progress Note Check basic labs with cardiac enzymes as well as electrocardiogram and chest x- ray. We'll try giving aspirin since she is complaining of left-sided chest pain and felt like she was going to pass out. No acute abnormalities on her physical exam of her chest and cardiac system. Progress Note #2: Time: 05:30 Progress Note Labs are all negative and no acute findings on CXR or ECG. That he cardiac enzymes" were from normal here. Since patient was feeling lightheaded and like she might pass out will avoid any strong pain medicines that she was also complaining of generalized pain. Will try dose of Toradol. She stated that she had seen Dr. Santana sign didn't impact her medical records and she did have a cardiac catheter done in July 19 in [place] that showed no significant coronary artery disease. She was advised to get a sleep study done which she again mentioned today. Counseled that the results were normal and encouraged to check back with clinic and follow-up for further care. ECG Initial ECG Impression Date: November 03, 2018 Initial ECG Impression Time: 04:14 Initial ECG Rate: 72 Initial ECG Rhythm: Normal Sinus Initial ECG Comparisson: No Previous ECG Available Comment Sinus rhythm with a heart rate of 72 bpm. IA interval of 156 ms. She has premature atrial complexes. She has nonspecific T-wave changes with anterolateral flattening. There is prolonged QT interval with a QT interval of 511 ms and a QT corrected interval of 560 ms. She has no ST elevation. She has no prior tracing for comparison. Diagnostic Imaging Diagonstic Imaging: Xray Plain Films/CT/US/NM/MRI: chest Comments No acute infiltrate or effusion. Reviewed: Reviewed by Me Departure Impression Primary Impression: Near syncope Additional Impressions: Palpitations Non-cardiac chest pain Disposition: HOME, SELF-CARE Condition: Stable Departure-Patient Inst. Decision time for Depature: 05:45 Referrals: NO,LOCAL PHYSICIAN (PCP/Family) Primary Care Physician Patient Instructions: Chest Pain That Is Not Caused by the Heart (DC), Palpitations (DC), Near Fainting (DC) Add. Discharge Instructions: Stay well hydrated and get plenty of rest. Check with clinic about getting Sleep study for possible Obstructive Sleep Apnea LYLA LANGE MD November 03, 2018 03:33
[2018-11-03] MEDS ORDERED: ASPIRIN 81 MG CHEW (CHILDREN'S ASA) PO ONE (04:00)
[2018-11-03] MEDS ORDERED: RT-ALBUTEROL/IPRATROPIUM 3 ML (DUONEB) VIAL INH ONE (04:00)
[2018-11-03] MEDS ORDERED: ONDANSETRON 4 MG/2 ML (SDV) Z0FRAN IVP ONE (04:00)
[2018-11-03 05:16] LABS: INR 0.9 (0.8-1.4); PROTHROMBIN TIME PATIENT 12.8 SEC (12.2-14.7)
[2018-11-03 05:17] LABS: HEMATOCRIT 41 % (35-52); HEMOGLOBIN 14.1 G/DL (11.5-16.0); LYMPHOCYTES % (AUTO) 42 % (12-44); MEAN CORPUSCULAR HEMOGLOBIN 32 PG (25-34); MEAN CORPUSCULAR HGB CONC 35 G/DL (32-36); MEAN CORPUSCULAR VOLUME 93 FL (80-99); MEAN PLATELET VOLUME 10.4 FL (7.4-10.4); NEUTROPHILS % (AUTO) 48 % (42-75); PLATELET COUNT 162 10^3/uL (130-400); RED CELL DISTRIBUTION WIDTH 12.4 % (10.0-14.5); WHITE BLOOD COUNT 8.8 10^3/uL (4.3-11.0)
[2018-11-03 05:18] LABS: BASOPHILS % (AUTO) 0 % (0-10); EOSINOPHILS # (AUTO) 0.1 10^3/uL (0.0-0.3); EOSINOPHILS % (AUTO) 1 % (0-10); LYMPHOCYTES # (AUTO) 3.7 X 10^3 (1.0-4.0); MONOCYTES # (AUTO) 0.8 X 10^3 (0.0-1.0); MONOCYTES % (AUTO) 9 % (0-12); NEUTROPHILS # (AUTO) 4.2 X 10^3 (1.8-7.8)
[2018-11-03] MEDS ORDERED: KETOROLAC 30 MG/ML VIAL IVP STA (05:18)
[2018-11-03 05:20] LABS: ALBUMIN 4.3 GM/DL (3.2-4.5); BILIRUBIN,TOTAL 0.3 MG/DL (0.1-1.0); CALCIUM 9.1 MG/DL (8.5-10.1); CREATININE SERUM 1.03 MG/DL (0.60-1.30); MAGNESIUM 1.9 MG/DL (1.8-2.4); POTASSIUM 3.4 MMOL/L (3.6-5.0)
--- NOTE | 2018-11-03 05:38 | Diagnostic Imaging Report ---
INDICATION: Presyncope. COMPARISON: None. FINDINGS: Single frontal radiographic view of the chest was obtained and demonstrates mild enlargement of the cardiac silhouette. Pulmonary vasculature also appears slightly prominent. Lungs show low inspiratory volumes. There is no focal consolidation, large effusion, nor pneumothorax. Bony structures show no acute abnormalities. IMPRESSION: 1. Low lung volumes with crowding of central hilar structures versus mild pulmonary vascular congestion. 2. Mild prominence of cardiac silhouette, which may be accentuated by portable technique, low lung volumes, and pericardial fat. Dictated by: Dictated on workstation # [id number]
[2018-11-03 05:56] VITALS: BP 128/59
== END 2018-11-03 06:00 | disposition home or self-care (01) ==
LOC: EDUNIT# 02:45 → ER FS 02:47
DX: R55 Syncope and collapse (principal); R00.2 Palpitations; R07.9 Chest pain, unspecified; J45.909 Unspecified asthma, uncomplicated; K21.9 Gastro-esophageal reflux disease without esophagitis; E03.9 Hypothyroidism, unspecified; F41.9 Anxiety disorder, unspecified; F32.9 Major depressive disorder, single episode, unspecified; Z88.2 Allergy status to sulfonamides; Z88.1 Allergy status to other antibiotic agents; Z88.8 Allergy status to other drugs, medicaments and biological substances; Z87.891 Personal history of nicotine dependence; Z90.49 Acquired absence of other specified parts of digestive tract; Z90.710 Acquired absence of both cervix and uterus; Z90.89 Acquired absence of other organs
CPT/HCPCS: 36415; 71045; 80053; 83690; 83735; 83880; 84484; 85025; 85610; 85730; 93005; 93041; 96374; 96375

== ENCOUNTER 2018-11-08 11:38 | Emergency (ER) | payer MEDICAID ==
[~2018-11-08] VITALS: Ht 170.2 cm; Wt 136.1 kg
--- OUTSIDE RECORDS SUMMARY | 2018-11-08 11:44 | XMS REPORT | Clinical Summary ---
Author Author [facility] Organization [facility] Address Unknown Phone Unavailable Care Team Providers Care Fountain Clerk Name Role Phone Gemini Herring MD PCP Source Comments Some departments are not documenting in the electronic medical record. If you do not see the information that you expected, contact Release of Information in the Health Information Management department at [phone] for further assistance in locating additional records.[facility] Allergies Comments Active Allergy Reactions Severity [...] Taken Vital Sign Reading 07/30/2017 1:00 AM DRAW OPERATOR Blood Pressure 160/71 07/29/2017 7:25 PM DRAW OPERATOR Pulse 73 07/29/2017 5:45 PM DRAW OPERATOR Temperature 36.9 C (98.4 F) - Respiratory Rate - 07/30/2017 12:58 AM DRAW OPERATOR Oxygen Saturation 98% - Inhaled Oxygen - Concentration 07/29/2017 11:52 AM DRAW OPERATOR Weight 127 kg (280 lb) 07/29/2017 11:52 AM DRAW OPERATOR Height 170.2 cm (5' 7") 07/29/2017 11:52 AM DRAW OPERATOR Body Mass Index 43.85 Plan of Treatment Health Maintenance Due Date Last Done Comments PHYSICAL (COMPREHENSIVE) 1976 EXAM HIV SCREENING 1984 DTAP/TDAP VACCINES (1 - 1987 Tdap) CERVICAL CANCER SCREENING 1999 BREAST CANCER SCREENING 2009 INFLUENZA VACCINE 03/28/2019 Results Not on filefrom Last 3 Months Advance Directives Patient has advance care planning documents, and code status on file. For more information, please contact: [facility] [address] [place] [address] Date Inactivated Comments Code Status Date Activated 12/25/2016 7:37 PM Full Code 12/23/2016 2:04 AM Provider has discussed Code Status Yes w/Patient or Family? 12/02/2016 2:44 PM Full Code 11/29/2016 5:17 AM Provider has discussed Code Status Yes w/Patient or Family?
--- OUTSIDE RECORDS SUMMARY | 2018-11-08 11:44 | XMS REPORT ---
Author Author Migration, Doctor Organization [facility] Address Unknown Phone Unavailable Care Team Providers Care Note Taker Name Role Phone Migration, Doctor Unavailable Unavailable PROBLEMS Type Condition ICD9-CM Code EVY10-PB Code Onset Dates Condition Status SNOMED Code Problem Other hyperlipidemia E78.49 Active 15472704 Problem Anxiety F41.9 Active 59305631 Problem Major depressive disorder, single episode, unspecified F32.9 Active 46844440 Problem Postablative hypothyroidism E89.0 Active 521647596 Problem Renal insufficiency N28.9 Active 679730771 Problem Lumbar degenerative disc disease M51.36 Active 52754820 Problem Chronic pain syndrome G89.4 Active 502281788 Problem Positive urine drug screen R82.5 Active 025048252 Problem Primary insomnia F51.01 Active 7579469 Problem ADHD, predominantly inattentive type F90.0 Active 09576776 Problem Fatigue, unspecified type R53.83 Active 67209506 Problem Acquired hypothyroidism E03.9 Active 706141758 Problem Degenerative disc disease, lumbar M51.36 Active 91232784 Problem Difficulty concentrating R41.840 Active 93721019 Problem Uncomplicated asthma, unspecified asthma severity J45.909 Active 332651892 Problem Chronic fatigue R53.82 Active 70372672 Problem Moderate episode of recurrent major depressive disorder F33.1 Active 25513603 Problem Allergic rhinitis, unspecified allergic rhinitis type J30.9 Active 46305809 Problem Benign essential hypertension I10 Active 3187147 Problem Other chronic pain G89.29 Active 51460469 Problem Irregular heart rhythm I49.9 Active 983226074 Problem Primary osteoarthritis of left knee M17.12 Active 033943021623899 Problem Arthritis, multiple joint involvement M12.9 Active [id number] ALLERGIES No Information ENCOUNTERS Encounter Location Date Diagnosis [facility] [address] [facility] [id number] [place] [address] October, [address] [address] October, [facility] [address] [address] October, [facility] [address] [address] Sep, [facility] [address] [address] Sep, Chronic pain syndrome G89.4 [facility] N[place] [address] [address] Sep, Chronic pain syndrome G89.4 [facility] [address] [address] [address] Sep, Witnessed apneic spells R06.81 ; Loud snoring R06.83 ; Chronic fatigue R53.82 and Chronic pain syndrome G89.4 [facility] [address] [id number] [address] Sep, [facility] [place] WALK IN [facility] [address] [place] [address] Sep, Acute nonintractable headache, unspecified headache type R51 and Morbid obesity E66.01 [facility] N[place] [address] [address] Sep, Morbid obesity E66.01 ; Bilateral leg edema R60.0 ; Pain of left leg M79.605 ; Pain in right leg M79.604 ; Generalized abdominal pain R10.84 and Lumbar back pain M54.5 [place] [address] [id number] [address] Sep, Acute pain of left knee M25.562 and Primary osteoarthritis of left knee M17.12 [facility] N[place] [address] [address] Aug, [facility] [address] [address] Aug, [facility] [address] [address] Aug, [facility] N[place] [address] [address] Aug, Arthritis, multiple joint involvement M12.9 ; Abdominal wall seroma, subsequent encounter S30.1XXD ; Degenerative disc disease, lumbar M51.36 and Chronic pain syndrome G89.[address] [address] Aug, Morbid obesity E66.01 and Abdominal wall pain R10.[address] [address] 08 Aug, 2018 Abdominal wall pain R10.9 ; Abdominal wall seroma, initial encounter S30.1XXA and Leg edema R60.0 [place] [id number] [place] [address] Jul, Acute pain of left knee M25.562 [place] [id number] [place] [address] Jul, [address] [address] Jul, Bilateral lower extremity edema R60.0 ; Pain of left leg M79.605 ; Pain in right leg M79.604 ; BMI 45.0-49.9, adult Z68.42 and Morbid obesity E66.01 [facility] WALK IN [facility] [address] [place] [address] Jul, BMI 50.0-59.9, adult Z68.43 ; Swelling of lower extremity M79.89 and Irregular heart rhythm I49.9 [place] [address] [place] [address] Jun, [place] [id number] [place] [address] Jun, [place] [id number] [place] [address] Jun, [place] [id number] [place] [address]- 6[address] Jun, Primary insomnia F51.01 [place] [id number] [place] [address] Jun, [place] [id number] [place] [address] Jun, BMI 45.0-49.9, adult Z68.42 ; Acquired hypothyroidism E03.9 ; Fatigue, unspecified type R53.83 ; Palpitations R00.2 ; Right lower quadrant abdominal pain R10.31 and Morbid obesity E66.01 [place] [address] [address] May, [place] [address] [address] May, Acquired hypothyroidism E03.9 [place] [address] [address] May, [place] [address] [address] Apr, Acquired hypothyroidism E03.9 [place] [address] [address] Mar, Acquired hypothyroidism E03.9 ; Skin tag L91.8 and BMI 45.0- 49.9, adult Z68.42 [place] [id number] [place] [address] Dec, [place] [id number] [place] [address] 02461- 5947 Nov, Edema, unspecified type R60.9 [place] [id number] [place] [address]6780- 2[address] Nov, Postablative hypothyroidism E89.0 [place] [address] [address] Nov, [place] [address] [address] Nov, Generalized abdominal pain R10.84 ; History of abdominal hernia Z87.19 ; Pain of left calf M79.662 and BMI 45.0-49.9, adult Z68.42 [facility] [address] [place] [address] Sep, [facility] [id number] [place] [address]- [address]207 Sep, [facility] [id number] [place] [address]16- 5[address] Sep, Postablative hypothyroidism E89.0 ; Pain in left knee M25.562 ; Edema, unspecified type R60.9 ; Multiple joint pain M25.50 and BMI 45.0-49.9, adult Z68.42 [place] [id number] [place] [address] Aug, [facility] [address] [place], [place] [id number] [place] [address] Jul, History of swelling of feet Z87.39 [facility] [id number] [place] [address] Jul, [facility] [id number] [place] [address] Jul, Pain in left knee M25.562 ; Other chronic pain G89.29 and BMI 45.0-49.9, adult Z68.42 [place] [id number] [place] [address] 635[address]- 2785 Jun, [facility] [id number] [place] [address] 64670- 8298 Jun, [facility] [id number] [place] [address]- 6[address] May, Primary insomnia F51.01 [facility] [id number] [place] [address] 67744- 8944 Apr, [facility] [id number] [place] [address] 97509- 9398 Apr, [facility] [id number] [place] [address]50- 9678 Apr, Acute pain of left knee M25.562 ; Renal insufficiency N28.9 ; Fatigue, unspecified type R53.83 ; Postablative hypothyroidism E89.0 and BMI 40.0-44.9, adult Z68.41 [facility] [id number] [place] [address] 2[address] Mar, Acute pain of left knee M25.562 [facility] [id number] [place] [address] 80281- 0159 Feb, Renal insufficiency N28.9 [place] [id number] [place] [address] 40373- 9044 Feb, [place] [id number] [place] [address] 26[address]- 4523 Feb, [place] [id number] [place] [address] 87817- 4486 Feb, [place] [id number] [place] [address] 44280- 7263 Feb, Renal insufficiency N28.9 ; ADHD, predominantly inattentive type F90.0 ; Postablative hypothyroidism E89.0 ; Primary insomnia F51.01 ; Difficulty concentrating R41.840 ; History of swelling of feet Z87.39 ; Chronic pain syndrome G89.4 and Moderate episode of recurrent major depressive disorder F33.1 [place] [id number] [place] [address] 72457- 8529 Feb, [place] [id number] [place] [address] 78742- 7726 Feb, [place] [id number] [place] [address] 48147- 3010 Jan, ADHD, predominantly inattentive type F90.0 [facility] [id number] [place] [address] 10700- 2921 Jan, Renal insufficiency N28.9 ; Postablative hypothyroidism E89.0 and History of swelling of feet Z87.39 [facility] [address] [place] [address] 71488- 6618 Jan, Chronic pain syndrome G89.4 [facility] [id number] [place] [address] 73886- 8454 Jan, [facility] [id number] [place] [address] 33222- 8811 Jan, Renal insufficiency N28.9 ; Primary insomnia F51.01 ; Difficulty concentrating R41.840 ; Postablative hypothyroidism E89.0 ; History of swelling of feet Z87.39 ; Chronic pain syndrome G89.4 and Moderate episode of recurrent major depressive disorder F33.1 [facility] [id number] [place] [address] 55772- 6703 Jan, [facility] [id number] [place] [address] 28929 [address]7016 Jan, Candidal dermatitis B37.2 [facility] [id number] [place] [address] 72521- 6201 Dec, [facility] [id number] [place] [address] Dec, [facility] [id number] [place] [address] 79546- 1730 Dec, [place] [id number] [place] [address] 48282- 8549 Dec, Stool color black K92.1 [facility] [id number] [place] [address] 38281- 9676 Dec, Diarrhea of presumed infectious origin A09 [facility] [id number] [place] [address] 34191- 2873 Dec, Right lower quadrant abdominal pain R10.31 and Stool color black K92.1 [facility] [id number] [place] [address] 26 Nov, 2016 [facility] [address] [address] 14 Nov, 2016 Visit for TB skin test Z11.1 and Pre-employment examination Z02.1 [facility] [address] [address] 03 Nov, 2016 [facility] [id number] [place] [address] October, [facility] [id number] [place] [address] October, [facility] [id number] [place] [address] Aug, [facility] [id number] [place] [address] Aug, Other fatigue R53.83 ; BMI 45.0-49.9, adult Z68.42 ; Edema, unspecified type R60.9 ; Benign essential hypertension I10 and Lumbar degenerative disc disease M51.36 [facility] [id number] [place] [address] 08 Aug, 2016 Skin tag L91.8 [facility] [id number] [place] [address] Aug, Abnormal laboratory test result R89.9 [facility] [id number] [place] [address] Jul, Insomnia, unspecified type G47.00 [facility] [id number] [place] [address] Jul, Benign essential hypertension I10 ; BMI 45.0-49.9, adult Z68.42 ; Lumbar degenerative disc disease M51.36 ; Edema, unspecified type R60.9 ; Other fatigue R53.83 and Hypothyroidism, unspecified type E03.9 [facility] [address] [id number], [place] [address] Jul, [facility] [id number] [place] [address] Jul, Benign essential hypertension I10 ; BMI 45.0-49.9, adult Z68.42 ; Lumbar degenerative disc disease M51.36 ; Edema, unspecified type R60.9 ; Other fatigue R53.83 and Hypothyroidism, unspecified type E03.9 [facility] [id number] [place] [address] Jun, [facility] [address] [address] Jun, [facility] [id number] [place] [address] Jun, Benign essential hypertension I10 ; Hypothyroidism, unspecified type E03.9 ; Other fatigue R53.83 ; Midline low back pain without sciatica, unspecified chronicity M54.5 and BMI 45.0-49.9, adult Z68.[address] [id number] Jun, Postablative hypothyroidism E89.0 ; Rhinopharyngitis J00 and Encounter for immunization Z23 [place] [id number] [place] [address] [id number] Jun, [place] [id number] [place] [address] [id number] May, [facility] [id number] [place] [address] May, [place] [id number] [place] [address] [id number] May, [place] [id number] [place] [address] [id number] Apr, Hypothyroidism, unspecified type E03.9 [facility] [address] [facility] [id number][place] [id number] Apr, Hypothyroidism, unspecified type E03.9 [facility] [address] [id number][place] [id number] Apr, [facility] [id number][place] [id number] Mar, Hypothyroidism, unspecified type E03.9 ; Moderate single current episode of major depressive disorder F32.1 ; Other hyperlipidemia E78.49 and Elevated liver function tests R79.89 [facility] [address] [id number] [place] [id number] Feb, [facility] [address]00565100[place] [id number] Dec, Moderate single current episode of major depressive disorder F32.1 [facility] [id number], [place] [id number] Nov, [facility] [id number], [place] [id number] Nov, [facility] [address] [id number][place] [id number] Nov, Hypothyroidism, unspecified type E03.9 ; Other hyperlipidemia E78.49 and Elevated liver function tests R79.89 [facility] [address] 62855576P41260825CJBATESVILLE[place] [id number] Nov, 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 ; Hypothyroidism, unspecified type E03.9 ; Benign essential hypertension I10 and Uncomplicated asthma, unspecified asthma severity J45.909 [place] [address] 62855450V01260050DVBATESVILLE[place] [id number] 08 Nov, 2015 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 ; Hypothyroidism, unspecified type E03.9 ; Benign essential hypertension I10 and Uncomplicated asthma, unspecified asthma severity J45.909 [facility] [address] [place]005[place]100[place] [id number] October, [facility] [address] [place] [id number] [place] [address] [id number] October, [facility] [address] [place] [id number] [place] [address] [id number] October, Abnormal laboratory test result R89.9 [address] [id number] [place] [address] [id number] October, Status post bilateral oophorectomy Z90.722 [address] [id number] [place] [address] [id number] Sep, [facility] [address] [place] [address] [place] [address] [id number] Aug, [place] [id number] [place] [address] [id number] Aug, Complex ovarian cyst N83.20 [place] [id number] [place] [address] [id number] Aug, Other acute sinusitis, recurrence not specified J01.80 [place] [id number] [place] [address] [id number] Aug, [facility] [id number] [place] [address]4030 2548 Jun, [place] [id number] [place] [address] [id number] Jun, [place] [id number] [place] [address] [id number] May, Allergic rhinitis, unspecified allergic rhinitis type J30.9 [facility] [id number] [place] [address] 90559- 8032 May, [place] [id number] [place] [address] [id number] Mar, [facility] [address]00565100[place] [id number] Mar, [address] [id number] Jan, Hypothyroidism 244.9 and Cyst in hand 727.[address] [id number] Jan, [address] [id number] Dec, [address] [id number] Dec, Acute sinusitis 461.9 and Cough 786.2 [id number] [place] [address] [id number] Dec, Insect bite 919.4 [address] [address] [id number] [id number] Nov, [place] [id number] [place] [address] [id number] Nov, [place] [id number] [place] [address] [id number] Sep, Obesity, morbid 278.01 ; Sleep apnea, obstructive 327.23 and Fatigue due to sleep pattern disturbance 780.79 [address] [id number] [place] [address] 27053- 6178 Sep, [facility] [address] [address]- [address] Sep, [place] [id number] [place] [address] [id number] Aug, [facility] [id number] [place] [address] 91546835- 6216 Aug, [id number] [place] [address] [id number] Jul, [facility] [address] [facility] [id number] [address]- 9521 Jul, [facility] [address] [facility] [id number] [place] [address]- 1455 Jul, [facility] [id number], [place] [id number] Jul, [facility] [id number], [place] [id number] Jun, [facility] [address] [facility] [id number] [place] [address]- 2131 Jun, [facility] [id number], [place] [id number] May, [facility] [address] [id number] [address]- 4599 May, [facility] [address] [facility] [facility] [id number] [address]- 0105 Mar, [facility] [address] [facility] [id number] [place] [address]- 2304 Mar, [facility] [address] [facility] [id number] [place] [address]- 7900 Mar, [facility] [id number], [place] [id number] Mar, [facility] [address] [facility] [id number] [place]- 9376 Mar, [facility] [address] [facility] [id number] [place] [address]- 3980 Mar, [facility] [address] [id number] [place] [address]- 9600 Mar, [facility] [id number], [place] [id number] Mar, [facility] [address] [facility] [id number] [place] [address]- 7087 Mar, [facility] [address] [facility] [id number] [place] [id number] Mar, [facility] [address] [id number] [place] [address]- 8544 Mar, IMMUNIZATIONS No Known Immunizations SOCIAL HISTORY Never Assessed REASON FOR [place] [place] VITAL SIGNS MEDICATIONS Unknown [...] 09/2015 Surgical History Abdominal Hernia Repair 2017 Surgical History cardiac cath-dr bonds 2018 Hospitalization History Vomiting 2011 Hospitalization History Asthma exac Hospitalization History Mononucleosis Hospitalization History Pneumonia Hospitalization History Surgery(s) only Hospitalization History chest pain 11/2016 Hospitalization History [facility]- Diarrhea/abdominal pain 11/2016 Hospitalization History [facility] ER for heart beating funny 03/2018
--- OUTSIDE RECORDS SUMMARY | 2018-11-08 11:57 | XMS REPORT | Continuity of Care Document ---
[...] 790.6 LIVER FUNCTION TEST, ABNORMAL 07/13/2017 Prewett, Kacey Lares L76.34 Postprocedural seroma of skin and subcutaneous tissue follow 07/13/2017 Kacey Giron Admitting R10.31 Right lower quadrant pain 07/13/2017 PreKacey larose Final R11.2 Nausea with vomiting, unspecified 07/13/2017 Kacey Giron Final R51 Headache 07/13/2017 Kacey Giron Final T45.0X5A Adverse effect of antiallergic and antiemetic drugs, initial Procedures Code Description [place] [address] ROUTINE VENIPUNCTURE 04/06/2014 41450 CBC 04/06/2014 98197 MAMMOGRAM, SCREENING 04/24/2014 52613 PAP SMEAR 04/24/2014 Q0091 PAP SMEAR OBTAIN SMEAR 04/24/2014 73162 ROUTINE VENIPUNCTURE 10/12/2014 54058 US LIVER ULTRASOUND 10/12/2014 79022 CMP 10/12/2014 16070 MAGNESIUM 10/12/2014 56762 TSH 10/12/2014 06544 CBC 10/12/2014 54537 Intravenous infusion, hydration; each ad GISELA RANDOLPH 07/12/2017 94382 Therapeutic, prophylactic, or diagnostic GISELA RANDOLPH 07/12/2017 60988 Therapeutic, prophylactic, or diagnostic GISELA RANDOLPH 07/12/2017 98079 Therapeutic, prophylactic, or diagnostic GISELA RANDOLPH 07/12/2017 22248 Emergency department visit for the evalu GISELA [...] NEG Ketones, UA NEGATIVE mg/dL NEG Specific Hankinson, UA 1.024 1.003-1.030 Blood, UA MODERATE NEG [...] Status Pt. Type Provider Facility Loc./Unit Complaint [id number] 10/12/2014 09:53:00 10/12/2014 23:59:59 CLS Outpatient KIM MITCHELL MD [id number] 06/18/2014 09:06:00 06/18/2014 23:59:59 CLS Outpatient KAVON GARZADANIELA Cecilio [id number] 04/23/2014 15:22:00 04/23/2014 23:59:59 CLS Outpatient KIM MITCHELL MD [id number] 04/23/2014 15:22:00 04/23/2014 23:59:59 CLS Outpatient KIM MITCHELL MD [id number] 04/06/2014 11:00:00 04/06/2014 23:59:59 CLS Outpatient KIM MITCHELL MD [id number] 04/03/2014 17:30:00 04/03/2014 23:59:59 CLS Outpatient KIM MITCHELL MD [id number] 07/12/2017 16:59:00 07/13/2017 00:16:00 DIS Emergency [facility] ER Cardiac [id number] 10/13/2018 16:20:00 10/13/2018 23:59:59 CLS Outpatient ELAINA LILLY [facility] [id number] 05/04/2017 08:40:00 Document Registration [id number] 03/17/2017 09:40:00 Document Registration
[2018-11-08] MEDS ORDERED: morphine INJ 10 MG/ML 1ML (SYR OR VIAL) IVP STA (12:26)
[2018-11-08] MEDS ORDERED: ONDANSETRON 4 MG/2 ML (SDV) Z0FRAN IVP ONE (12:30)
[2018-11-08 13:11] LABS: BASOPHILS % (AUTO) 0 % (0-10); EOSINOPHILS # (AUTO) 0.1 10^3/uL (0.0-0.3); EOSINOPHILS % (AUTO) 2 % (0-10); HEMATOCRIT 43 % (35-52); HEMOGLOBIN 14.5 G/DL (11.5-16.0); LYMPHOCYTES # (AUTO) 2.1 X 10^3 (1.0-4.0); LYMPHOCYTES % (AUTO) 33 % (12-44); MEAN CORPUSCULAR HEMOGLOBIN 31 PG (25-34); MEAN CORPUSCULAR HGB CONC 34 G/DL (32-36); MEAN CORPUSCULAR VOLUME 93 FL (80-99); MEAN PLATELET VOLUME 10.8 FL (7.4-10.4); MONOCYTES # (AUTO) 0.6 X 10^3 (0.0-1.0); MONOCYTES % (AUTO) 9 % (0-12); NEUTROPHILS % (AUTO) 56 % (42-75); PLATELET COUNT 154 10^3/uL (130-400); RED CELL DISTRIBUTION WIDTH 12.6 % (10.0-14.5); WHITE BLOOD COUNT 6.5 10^3/uL (4.3-11.0)
[2018-11-08] MEDS ORDERED: NS 100 ML (IVPB) BAG IV ONE (13:15)
[2018-11-08] MEDS ORDERED: IOHEXOL 350 MG/ML 100 ML (OMNIPAQUE 350) VIAL IV ONE (13:15)
[2018-11-08] MEDS ORDERED: HOLD METFORMIN - RECEIVED CONTRAST 20 ML VIAL IV SCH (13:15)
--- NOTE | 2018-11-08 13:19 | ED Abdominal Pain ---
General Chief Complaint: Abdominal/GI Problems Stated Complaint: ABD PAIN Source of Information: Patient Exam Limitations: No Limitations History of Present Illness Date Seen by Provider: November 08, 2018 Time Seen by Provider: 12:00 Initial Comments Patient is a 48-year-old female with chronic abdominal wall pain over the ventral wall hernia mesh repair site. Patient reports increased pain the past 24 hours. Reports nausea, denies vomiting. Reports normal bowel movements. No fever chills or sweats. Patient was in her primary care office's wedding room when the pain increased prompting her to come to the emergency department. Patient's previously been evaluated for this abdominal pain and referred to outpatient surgery for hernia mesh removal. Patient has not yet been able to secure an outpatient follow-up appointment. No other acute symptoms or complaints. Severity/Quality: Moderate Location: Periumbilical Radiation: No Radiation Activities at Onset: None Associated Symptoms: Nausea/Vomiting Allergies and Home Medications Allergies Coded Allergies: Sulfa (Sulfonamide Antibiotics) (Verified Allergy, Unknown, 06/27/18) hydroxyzine (Verified Allergy, Unknown, 06/27/18) prochlorperazine (Verified Allergy, Unknown, 12/20/16) tetracycline (Verified Allergy, Unknown, 06/27/18) Home Medications Cyclobenzaprine HCl 10 Mg Tablet, 10 MG PO TID PRN for PRN, (Reported) Furosemide 40 Mg Tablet, 40 MG PO DAILY, (Reported) Gabapentin 300 Mg Capsule, 300 MG PO PRN, (Reported) Levothyroxine Sodium 50 Mcg Tablet, 50 MCG PO DAILY, (Reported) Meloxicam 15 Mg Tablet, 15 MG PO DAILY, (Reported) Ondansetron HCl 8 Mg Tablet, 8 MG PO Q6H PRN for NAUSEA/VOMITING-1ST LINE Prescribed by: LEONIDES ALFARO on 08/29/18 1605 Oxycodone HCl/Acetaminophen 1 Each Tablet, 1 TAB PO Q6H PRN for ABDOMINAL PAIN Prescribed by: LEONIDES ALFARO on 08/29/18 1605 Trazodone HCl 100 Mg Tablet, 100 MG PO DAILY, (Reported) Venlafaxine HCl 75 Mg Tab, 75 MG PO BID, (Reported) Patient Home Medication List Home Medication List Reviewed: Yes Review of Systems Review of Systems Constitutional: see HPI EENTM: See HPI Respiratory: See HPI Past Screzaa-Nwuogl-Okqlvl Hx Patient Social History Type Used: Cigarettes Former Smoker, Quit: Jun 15, 1996 2nd Hand Smoke Exposure: No Recent Hopitalizations: No Immunizations Up To Date Tetanus Booster (TDap): Less than 5yrs PED Vaccines UTD: Yes Date of Pneumonia Vaccine: Apr 18, 2013 Date of Influenza Vaccine: Apr 18, 2018 Seasonal Allergies Seasonal Allergies: No Past Medical History Surgeries: Yes (HERNIA X3) Abdominal, Appendectomy, Gallbladder, Hysterectomy Respiratory: No Asthma Currently Using CPAP: No Currently Using BIPAP: No Cardiac: No Chronic Edema/Swelling Neurological: No 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 0.0oz. [id number]; 48.6 BMI Method:Stated General Appearance: WD/WN, no apparent distress HEENT: PERRL/EOMI Neck: non-tender, full range of motion Respiratory: lungs clear, normal breath sounds Gastrointestinal: soft, tenderness, other (tenderness over midline umbilical surgical scar. No palpable reducible hernia. Physical exam limited due to obesity.) Extremities: normal range of motion, non-tender, normal inspection Back: normal inspection Skin: normal color Focused Exam Sepsis Stage: Ruled Out Progress/Results/Core Measures Results/Orders Lab Results Laboratory Tests Test 11/08/18 13:00 Range/Units White Blood Count 6.5 4.3-11.0 10^3/uL Red Blood Count 4.64 4.35-5.85 10^6/uL Hemoglobin 14.5 11.5-16.0 G/DL Hematocrit 43 35-52 % Mean Corpuscular Volume 93 80-99 FL Mean Corpuscular Hemoglobin 31 25-34 PG Mean Corpuscular Hemoglobin Concent 34 32-36 G/DL Red Cell Distribution Width 12.6 10.0-14.5 % Platelet Count 154 130-400 10^3/uL Mean Platelet Volume 10.8 H 7.4-10.4 FL Neutrophils (%) (Auto) 56 42-75 % Lymphocytes (%) (Auto) 33 12-44 % Monocytes (%) (Auto) 9 0-12 % Eosinophils (%) (Auto) 2 0-10 % Basophils (%) (Auto) 0 0-10 % Neutrophils # (Auto) 366.0 H 1.8-7.8 X 10^3 Lymphocytes # (Auto) 2.1 1.0-4.0 X 10^3 Monocytes # (Auto) 0.6 0.0-1.0 X 10^3 Eosinophils # (Auto) 0.1 0.0-0.3 10^3/uL Basophils # (Auto) 0.0 0.0-0.1 10^3/uL Sodium Level 142 135-145 MMOL/L Potassium Level 4.0 3.6-5.0 MMOL/L Chloride Level 100 98-107 MMOL/L Carbon Dioxide Level 27 21-32 MMOL/L Anion Gap 15 H 5-14 MMOL/L Blood Urea Nitrogen 18 7-18 MG/DL Creatinine 1.01 0.60-1.30 MG/DL Estimat Glomerular Filtration Rate 58 BUN/Creatinine Ratio 18 Glucose Level 101 70-105 MG/DL Calcium Level 9.6 8.5-10.1 MG/DL Corrected Calcium 9.4 8.5-10.1 MG/DL Total Bilirubin 0.4 0.1-1.0 MG/DL Aspartate Amino Transf (AST/SGOT) 30 5-34 U/L Alanine Aminotransferase (ALT/SGPT) 38 0-55 U/L Alkaline Phosphatase 95 40-136 U/L Total Protein 7.0 6.4-8.2 GM/DL Albumin 4.2 3.2-4.5 GM/DL Lipase 38 8-78 U/L My Orders Orders - YUMIKO PUGH DO Cbc With Automated Diff (11/08/18 12:26) Comprehensive Metabolic Panel (11/08/18 12:26) Lipase (11/08/18 12:26) Morphine Injection (Morphine Injection (11/08/18 12:26) Ondansetron Injection (Zofran Injectio (11/08/18 12:30) Ct Abdomen/Pelvis W (11/08/18 12:26) Iohexol Injection (Omnipaque 350 Mg/Ml 1 (11/08/18 13:15) Received Contrast (Hold Metformin- Contr (11/08/18 13:15) Ns (Ivpb) (Sodium Chloride 0.9% Ivpb Bag (11/08/18 13:15) Medications Given in ED Current Medications Medications Dose Ordered Sig/Ashley Route Start Time Stop Time Status Last Admin Dose Admin Iohexol 100 ml ONCE ONCE IV 11/08/18 13:15 11/08/18 13:26 DC 11/08/18 13:26 100 ML Ondansetron HCl 4 mg ONCE ONCE IVP 11/08/18 12:30 11/08/18 12:31 DC 11/08/18 13:06 4 MG Sodium Chloride 100 ml ONCE ONCE IV 11/08/18 13:15 11/08/18 13:26 DC 11/08/18 13:27 80 ML Departure Impression Primary Impression: Abdominal wall pain Disposition: HOME, SELF-CARE Condition: Against Medical Advice Departure-Patient Inst. Decision time for Depature: 14:09 Referrals: CONRADO LILLY MD (PCP) Primary Care Physician Patient Instructions: No Instuctions Given Add. Discharge Instructions: You were evaluated the emergency department for abdominal pain. Labs and imaging studies were performed and are nondiagnostic. The exact cause your symptoms has not been determined, it is likely that her pain is related due to prior abdominal wall hernia surgery. Please follow-up with your PCP for further management and referral to hernia supervisor [facility]. In thee meantime, take Tylenol as needed for pain. All discharge instructions reviewed with patient and/or family. Voiced understanding. YUMIKO PUGH DO November 08, 2018 13:19
[2018-11-08 13:39] LABS: ALBUMIN 4.2 GM/DL (3.2-4.5); BILIRUBIN,TOTAL 0.4 MG/DL (0.1-1.0); CALCIUM 9.6 MG/DL (8.5-10.1); CREATININE SERUM 1.01 MG/DL (0.60-1.30)
--- NOTE | 2018-11-08 13:45 | Diagnostic Imaging Report ---
PROCEDURE: CT abdomen and pelvis with contrast. TECHNIQUE: Multiple contiguous axial images were obtained through the abdomen and pelvis after administration of intravenous contrast. Auto Exposure Controls were utilized during the CT exam to meet ALARA standards for radiation dose reduction. INDICATION: Right lower quadrant pain for one day. COMPARISON: Correlation is made with prior CT from 10/04/2018. FINDINGS: The lung bases are clear. The liver demonstrates generalized low density consistent with hepatic steatosis. No discrete liver mass is seen. Gallbladder is surgically absent. No biliary ductal dilatation is identified. The pancreas and spleen are unremarkable. No adrenal mass is detected. Kidneys are unremarkable. Aorta is non-aneurysmal. Small and large bowel loops are nonobstructed. Previously noted fluid collection in the midline anterior abdominal wall measures approximately 6.6 x 4.5 cm. This compares to 7.1 x 4.0 cm. No free fluid in the abdomen is identified. Postsurgical changes in the right lower quadrant from appendectomy are seen. Bladder is decompressed. No acute inflammatory process is identified. No abdominal or pelvic lymphadenopathy is seen. IMPRESSION: 1. Hepatic steatosis. 2. Stable anterior abdominal wall fluid collection, perhaps postoperative cirrhosis from hernia repair. No new abnormality in the abdomen or pelvis is seen. No acute feature is detected. Dictated by: Dictated on workstation # [id number]
[2018-11-08] MEDS ORDERED: ACETAMINOPHEN 500 MG TAB (TYLENOL) PO ONE (14:15)
[2018-11-08 15:40] VITALS: BP 139/72
[2018-11-09 13:10] LABS: NEUTROPHILS # (AUTO) 3.7 X 10^3 (1.8-7.8)
== END 2018-11-08 14:36 | disposition home or self-care (01) ==
LOC: EDUNIT# 11:38 → ER FS 11:39
DX: R10.33 Periumbilical pain (principal); J45.909 Unspecified asthma, uncomplicated; K21.9 Gastro-esophageal reflux disease without esophagitis; M41.9 Scoliosis, unspecified; E03.9 Hypothyroidism, unspecified; F32.9 Major depressive disorder, single episode, unspecified; Z87.19 Personal history of other diseases of the digestive system; Z98.890 Other specified postprocedural states; Z88.2 Allergy status to sulfonamides; Z88.8 Allergy status to other drugs, medicaments and biological substances; Z88.1 Allergy status to other antibiotic agents; Z87.891 Personal history of nicotine dependence; Z90.49 Acquired absence of other specified parts of digestive tract; Z90.710 Acquired absence of both cervix and uterus
CPT/HCPCS: 36415; 74177; 80053; 83690; 85025; 96374; 96375

== ENCOUNTER → 2018-11-14 | Outpatient (CLI) | payer MEDICAID ==
--- NOTE | 2018-11-14 13:46 | Diagnostic Imaging Report ---
PROCEDURE: MRI lumbar spine. TECHNIQUE: Multiplanar, multisequence MRI of the lumbar spine was performed without contrast. INDICATION: Low back pain and bilateral leg pain as well as right hip pain. COMPARISON: No prior studies are available for comparison. FINDINGS: Curvature and alignment of the lumbar spine is normal. Vertebral body heights are maintained. Marrow signal intensity is unremarkable. No geographic marrow lesion or acute compression fracture is seen. There is fairly normal height and signal intensity to the lumbar discs apart from mild desiccation at the L4-L5 and L5-S1 levels. Conus appears unremarkable at the T12-L1 level. T12-L1: Central canal and neural foramina are widely patent. L1-L2: Unremarkable. L2-L3: Unremarkable. L3-L4: Unremarkable. L4-L5: Unremarkable. L5-S1: Unremarkable. Paraspinous tissues are unremarkable. Note is made of a sacral cyst on the sagittal views at S2, normal variant. IMPRESSION: Essentially unremarkable MRI of the lumbar spine. No focal disc protrusion, central canal or neuroforaminal stenosis is identified. Dictated by: Dictated on workstation # [id number]
== END ==
LOC: RAD 12:58
PROVIDERS: ATTEND Physician Assistant
DX: M51.36 Other intervertebral disc degeneration, lumbar region (principal); M12.9 Arthropathy, unspecified
CPT/HCPCS: 72148

== ENCOUNTER 2018-11-22 22:25 | Emergency (ER) | payer MEDICAID ==
[~2018-11-22] VITALS: Ht 170.2 cm; Wt 136.1 kg
--- OUTSIDE RECORDS SUMMARY | 2018-11-22 22:30 | XMS REPORT | Clinical Summary ---
Author Author [facility] Organization [facility] Address Unknown Phone Unavailable Care Team Providers Care Ui Architect Name Role Phone Gemini Herring MD PCP Source Comments Some departments are not documenting in the electronic medical record. If you d o not see the information that you expected, contact Release of Information in [facility] Information Management department at [phone] for further assistan ce in locating additional records.[facility] Allergies Comments Active Allergy Reactions Severity [...] Taken Vital Sign Reading 07/30/2017 1:00 AM LEATHER CURRIER Blood Pressure 160/71 07/29/2017 7:25 PM LEATHER CURRIER Pulse 73 07/29/2017 5:45 PM LEATHER CURRIER Temperature 36.9 C (98.4 F) - Respiratory Rate - 07/30/2017 12:58 AM LEATHER CURRIER Oxygen Saturation 98% - Inhaled Oxygen - Concentration 07/29/2017 11:52 AM LEATHER CURRIER Weight 127 kg (280 lb) 07/29/2017 11:52 AM LEATHER CURRIER Height 170.2 cm (5' 7") 07/29/2017 11:52 AM LEATHER CURRIER Body Mass Index 43.85 Plan of Treatment Health Maintenance Due Date Last Done Comments PHYSICAL (COMPREHENSIVE) 1976 EXAM HIV SCREENING 1984 DTAP/TDAP VACCINES (1 - 1987 Tdap) CERVICAL CANCER SCREENING 1999 BREAST CANCER SCREENING 2009 INFLUENZA VACCINE 03/28/2019 Results Not on filefrom Last 3 Months Advance Directives Patient has advance care planning documents, and code status on file. For more i nformation, please contact: [facility] [address] [place] [address] Date Inactivated Comments Code Status Date Activated 12/25/2016 7:37 PM Full Code 12/23/2016 2:04 AM Provider has discussed Code Status Yes w/Patient or Family? 12/02/2016 2:44 PM Full Code 11/29/2016 5:17 AM Provider has discussed Code Status Yes w/Patient or Family?
[2018-11-22] MEDS ORDERED: NS IV 1000 ML 1,000 ML IV SCH (22:37)
[2018-11-22] MEDS ORDERED: FAMOTIDINE 20 MG (PEPCID) TABLET PO STA (22:37)
--- OUTSIDE RECORDS SUMMARY | 2018-11-22 22:44 | XMS REPORT | Continuity of Care Document ---
Author Organization Unknown Address Unknown Allergies Active Description Code Type Severity Reaction Onset Reported/Identified Relationship to Patient Clinical Status Yes Compazine Drug N/A Agitation Yes hydrOXYzine Drug N/A Agitation Yes sulfa drugs Drug N/A N Yes Sulfa (Sulfonamide Antibiotics) Drug Allergy N/A N/A 04/03/2014 Yes Tetracyclines Drug Allergy N/A N/A 04/03/2014 Yes No Known Drug Allergies [id number] Drug Allergy Unknown N/A 12/20/2016 Yes prochlorperazine [id number] Drug Allergy Unknown N/A 12/20/2016 Yes hydroxyzine [id number] Drug Allergy Unknown N/A 06/27/2018 Yes Sulfa (Sulfonamide Antibiotics) [id number] Drug Allergy Unknown N/A 06/27/2018 Yes tetracycline [id number] Drug Allergy Unknown N/A 06/27/2018 Medications Medication [...] V76.2 CERVICAL CANCER SCREENING (PAP SMEAR) 04/23/2014 GENSWEIDER DDS, DANIELA M 611.72 BREAST LUMP OR MASS 04/23/2014 GENSWEIDER DDS, DANIELA M 782.1 RASH 04/23/2014 GENSWEIDER DDS, DANIELA M V70.0 ROUTINE GENERAL MEDICAL EXAMINATION AT A HEALTH CARE FACILITY 04/23/2014 GENSWEIDER DDS, DANIELA M V73.81 HPV SCREENING 04/23/2014 GENSWEIDER DDS, DANIELA M V76.10 BREAST CANCER SCREENING 04/23/2014 GENSWEIDER DDS, DANIELA M V76.2 CERVICAL CANCER SCREENING (PAP SMEAR) 04/23/2014 KIM MITCHELL MD 611.72 BREAST LUMP OR MASS 04/23/2014 KIM MITCHELL MD 782.1 RASH 04/23/2014 KIM MITCHELL MD V70.0 ROUTINE GENERAL MEDICAL EXAMINATION AT A HEALTH CARE FACILITY 04/23/2014 KMI MITCHELL MD V73.81 HPV SCREENING 04/23/2014 KIM [...] FUNCTION TEST, ABNORMAL 12/19/2016 RADHA AVERY DO Geovanny Ot R10.9 UNSPECIFIED ABDOMINAL PAIN 12/19/2016 GENA LACY RADHA Geovanny Ot Z53.21 PROC/TRTMT NOT CRD OUT D/T PT LV BEF SEE 12/20/2016 JEANNETTE BELLO FACULTY DEAN Ot R11.2 NAUSEA WITH VOMITING, UNSPECIFIED 12/20/2016 JEANNETTE BELLO FACULTY DEAN Ot R19.7 DIARRHEA, UNSPECIFIED 12/20/2016 JEANNETTE BELLO FACULTY DEAN Ot R25.2 CRAMP AND SPASM 12/22/2016 JEANNETTE BELLO FACULTY DEAN Ot R11.2 NAUSEA WITH VOMITING, UNSPECIFIED 12/22/2016 JENANETTE BELLO FACULTY DEAN Ot R19.7 DIARRHEA, UNSPECIFIED 12/22/2016 JEANNETTE BELLO FACULTY DEAN Ot R25.2 CRAMP AND SPASM 12/22/2016 JEANNETTE BELLO FACULTY DEAN Ot R11.2 NAUSEA WITH VOMITING, UNSPECIFIED 12/22/2016 JEANNETTE BELLO FACULTY DEAN Ot R19.7 DIARRHEA, UNSPECIFIED 12/22/2016 JEANNETTE BELLO FACULTY DEAN Ot R25.2 CRAMP AND SPASM 07/13/2017 Kacey Giron Final L76.34 Postprocedural seroma of skin and subcutaneous tissue follow 07/13/2017 Kacey Giron Admitting R10.31 Right lower quadrant pain 07/13/2017 Prethuan, Kacey Final R11.2 Nausea with vomiting, unspecified 07/13/2017 Prewehenrik Kacey Final R51 Headache 07/13/2017 Prewehenrik, Kacey Final T45.0X5A Adverse effect of antiallergic and antiemetic drugs, initial 06/27/2018 EDDI RAMIREZ Ot E03.9 HYPOTHYROIDISM, UNSPECIFIED 06/27/2018 EDDI RAMIREZ Ot F32.9 MAJOR DEPRESSIVE DISORDER, SINGLE EPISOD 06/27/2018 BERNOT, EDDI Ot F41.9 ANXIETY DISORDER, UNSPECIFIED 06/27/2018 JAMES EDDI Ot G43.909 MIGRAINE, UNSP, NOT INTRACTABLE, WITHOUT 06/27/2018 BERNPORFIRIO, EDDI Ot G89.29 OTHER CHRONIC PAIN 06/27/2018 BERNOT EDDI Ot I10 ESSENTIAL (PRIMARY) HYPERTENSION 06/27/2018 SOLEDAD RAMIREZIS Ot J45.909 UNSPECIFIED ASTHMA, UNCOMPLICATED 06/27/2018 SOLEDAD RAMIREZIS Ot M06.9 RHEUMATOID ARTHRITIS, UNSPECIFIED 06/27/2018 JAMES EDDI Ot R53.83 OTHER FATIGUE 06/27/2018 JAMES EDDI Ot Z87.891 PERSONAL HISTORY OF NICOTINE DEPENDENCE 06/27/2018 JAMES EDDI Ot Z88.1 ALLERGY STATUS TO OTHER ANTIBIOTIC AGENT 06/27/2018 SOLEDAD RAMIREZIS Ot Z88.2 ALLERGY STATUS TO SULFONAMIDES STATUS 06/27/2018 SOLEDAD RAMIREZIS Ot Z88.8 ALLERGY STATUS TO OTH DRUG/MEDS/BIOL SUB 06/27/2018 SOLEDAD RAMIREZIS Ot Z90.49 ACQUIRED ABSENCE OF OTHER SPECIFIED PART 06/27/2018 JAMES EDDI Ot Z90.710 ACQUIRED ABSENCE OF BOTH CERVIX AND UTER 06/27/2018 JAMES EDDI Ot Z90.89 ACQUIRED ABSENCE OF OTHER ORGANS 06/30/2018 SOLEDAD RAMIREZIS Ot E03.9 HYPOTHYROIDISM, UNSPECIFIED 06/30/2018 JAMES EDDI Ot F32.9 MAJOR DEPRESSIVE DISORDER, SINGLE EPISOD 06/30/2018 SOLEDAD RAMIREZIS Ot F41.9 ANXIETY DISORDER, UNSPECIFIED 06/30/2018 SOLEDAD RAMIREZIS Ot G43.909 MIGRAINE, UNSP, NOT INTRACTABLE, WITHOUT 06/30/2018 JAMES EDDI Ot G89.29 OTHER CHRONIC PAIN 06/30/2018 JAMES EDDI Ot I10 ESSENTIAL (PRIMARY) HYPERTENSION 06/30/2018 SOLEDAD RAMIREZIS Ot J45.909 UNSPECIFIED ASTHMA, UNCOMPLICATED 06/30/2018 SOLEDAD RAMIREZIS Ot M06.9 RHEUMATOID ARTHRITIS, UNSPECIFIED 06/30/2018 BERNOT EDDI Ot R53.83 OTHER FATIGUE 06/30/2018 JAMES EDDI Ot Z87.891 PERSONAL HISTORY OF NICOTINE DEPENDENCE 06/30/2018 JAMES EDDI Ot Z88.1 ALLERGY STATUS TO OTHER ANTIBIOTIC AGENT 06/30/2018 EDDI RAMIREZ Ot Z88.2 ALLERGY STATUS TO SULFONAMIDES STATUS 06/30/2018 SOLEDAD RAMIREZIS Ot Z88.8 ALLERGY STATUS TO OTH DRUG/MEDS/BIOL SUB 06/30/2018 EDDI RAMIREZ Ot Z90.49 ACQUIRED ABSENCE OF OTHER SPECIFIED PART 06/30/2018 EDDI RAMIREZ Ot Z90.710 ACQUIRED ABSENCE OF BOTH CERVIX AND UTER 06/30/2018 EDDI RAMIREZ Ot Z90.89 ACQUIRED ABSENCE OF OTHER ORGANS 07/08/2018 ARIES ROBERTS MD (DDU) Ot Z02.71 ENCOUNTER FOR DISABILITY DETERMINATION 07/18/2018 ECTOR D FACULTY DEAN Ot R10.31 RIGHT LOWER QUADRANT PAIN 07/18/2018 ECTOR GR FACULTY DEAN Ot Z90.49 ACQUIRED ABSENCE OF OTHER SPECIFIED PART 07/18/2018 SIMÓNECTOR FACULTY DEAN Ot Z98.890 OTHER SPECIFIED POSTPROCEDURAL STATES 07/19/2018 LUCIA IGNACIO FACC, NICHELLE FACP CCDS Ot E66.01 MORBID (SEVERE) OBESITY DUE TO EXCESS CA 07/19/2018 LUCIA IGNACIO FACC, NICHELLE FACP CCDS Ot G62.9 POLYNEUROPATHY, UNSPECIFIED 07/19/2018 LUCIA IGNACIO FACC, ALI FACP CCDS Ot R06.02 SHORTNESS OF BREATH 07/19/2018 LUCIA IGNACIO FACC, ALI FACP CCDS Ot R07.89 OTHER CHEST PAIN 07/19/2018 LUCIA IGNACIO FACC, ALI FACP CCDS Ot Z68.42 BODY MASS INDEX (BMI) 45.0-49.9, ADULT 07/19/2018 LUCIA IGNACIO FACC, ALI FACP CCDS Ot Z79.899 OTHER HALF-WAY (CURRENT) DRUG THERAPY 07/22/2018 LUCIA IGNACIO FACC, ALI FACP CCDS Ot E66.01 MORBID (SEVERE) OBESITY DUE TO EXCESS CA 07/22/2018 LUCIA IGNACIO FACC, ALI FACP CCDS Ot G62.9 POLYNEUROPATHY, UNSPECIFIED 07/22/2018 LUCIA IGNACIO FACC, ALI FACP CCDS Ot R06.02 SHORTNESS OF BREATH 07/22/2018 LUCIA IGNACIO FACC, ALI FACP CCDS Ot R07.89 OTHER CHEST PAIN 07/22/2018 LUCIA IGNACIO FACC, ALI FACP CCDS Ot Z68.42 BODY MASS INDEX (BMI) 45.0-49.9, ADULT 07/22/2018 LUCIA IGNACIO FAC, NICHELLE [facility] CCDS Ot Z79.899 OTHER HALF-WAY (CURRENT) DRUG THERAPY 08/05/2018 ARMANDO IGNACIO, ARIES Anglin (DDU) Ot Z02.71 ENCOUNTER FOR DISABILITY DETERMINATION 08/05/2018 ECTOR GR Yann FACULTY DEAN Ot R10.31 RIGHT LOWER QUADRANT PAIN 08/05/2018 SIMÓN ECTOR D FACULTY DEAN Ot Z90.49 ACQUIRED ABSENCE OF OTHER SPECIFIED PART 08/05/2018 JCAKIE GRCELINE Lerner FACULTY DEAN Ot Z98.890 OTHER SPECIFIED POSTPROCEDURAL STATES 08/08/2018 WIGGINSRICHA KANG FACULTY DEAN Ot M79.89 OTHER SPECIFIED SOFT TISSUE DISORDERS 08/08/2018 WIGGINSRICHA KANG FACULTY DEAN Ot R60.0 LOCALIZED EDEMA 08/18/2018 WIGGINSRICHA FACULTY DEAN Ot M79.89 OTHER SPECIFIED SOFT TISSUE DISORDERS 08/18/2018 WIGGINSRICHA KANG FACULTY DEAN Ot R60.0 LOCALIZED EDEMA 08/29/2018 LEONIDES ALFARO MD Ot E03.9 HYPOTHYROIDISM, UNSPECIFIED 08/29/2018 LEONIDES ALFARO MD Ot F32.9 MAJOR DEPRESSIVE DISORDER, SINGLE EPISOD 08/29/2018 LEONIDES ALFARO MD Ot F41.9 ANXIETY DISORDER, UNSPECIFIED 08/29/2018 LEONIDES ALFARO MD Ot J45.909 UNSPECIFIED ASTHMA, UNCOMPLICATED 08/29/2018 LEONIDES ALFARO MD Ot K21.9 GASTRO-ESOPHAGEAL REFLUX DISEASE WITHOUT 08/29/2018 LEONIDES ALFARO MD Ot R10.31 RIGHT LOWER QUADRANT PAIN 08/29/2018 LEONIDES ALFARO MD Ot R11.0 NAUSEA 08/29/2018 LEONIDES ALFARO MD Ot Z87.19 PERSONAL HISTORY OF OTHER DISEASES OF TH 08/29/2018 LEONIDES ALFARO MD Ot Z87.891 PERSONAL [...] PERSONAL HISTORY OF OTHER DISEASES OF TH 08/31/2018 LEONIDES ALFARO MD Ot Z87.891 PERSONAL [...] Ot Z98.890 OTHER SPECIFIED POSTPROCEDURAL STATES 09/01/2018 YUMIKO PUGH DO Ot E03.9 HYPOTHYROIDISM, UNSPECIFIED 09/01/2018 YUMIKO PUGH DO Ot F32.9 MAJOR DEPRESSIVE DISORDER, SINGLE EPISOD 09/01/2018 YUMIKO PUGH DO Ot F41.9 ANXIETY DISORDER, UNSPECIFIED 09/01/2018 YUMIKO PUGH DO Ot J45.909 UNSPECIFIED ASTHMA, UNCOMPLICATED 09/01/2018 YUMIKO PUGH DO Ot K21.9 GASTRO- ESOPHAGEAL REFLUX DISEASE WITHOUT 09/01/2018 PUGH DO, YUMIKO Ot R10.84 GENERALIZED ABDOMINAL PAIN 09/01/2018 PUGH DO, YUMIKO Ot Z87.19 PERSONAL HISTORY OF OTHER DISEASES OF 09/01/2018 PUGH DO, YUMIKO Ot Z87.891 PERSONAL [...] YUMIKO Ot F41.9 ANXIETY DISORDER, UNSPECIFIED 09/05/2018 DARLINGTON DO, YUMIKO Ot J45.909 UNSPECIFIED ASTHMA, UNCOMPLICATED 09/05/2018 PUGH DO, YUMIKO Ot K21.9 GASTRO- ESOPHAGEAL REFLUX DISEASE WITHOUT 09/05/2018 PUGH DO, YUMIKO Ot R10.84 GENERALIZED ABDOMINAL PAIN 09/05/2018 PUGH DO, YUMIKO Ot Z87.19 PERSONAL HISTORY OF OTHER DISEASES OF 09/05/2018 PUGH DO, YUMIKO Ot Z87.891 PERSONAL HISTORY OF NICOTINE DEPENDENCE 09/05/2018 PUGH DO, YUMIKO Ot Z88.1 ALLERGY STATUS TO OTHER ANTIBIOTIC AGENT 09/05/2018 PUGH DO, YUMIKO Ot Z88.2 ALLERGY STATUS TO SULFONAMIDES STATUS 09/05/2018 PUGH DO, YUMIKO Ot Z88.8 ALLERGY STATUS TO OTH DRUG/MEDS/BIOL SUB 09/05/2018 PUGH DO, YUMIKO Ot Z90.49 ACQUIRED ABSENCE OF OTHER SPECIFIED PART 09/05/2018 PUGH DO, YUMIKO Ot Z90.710 ACQUIRED ABSENCE OF BOTH CERVIX AND UTER 09/05/2018 PUGH DO, YUMIKO Ot Z90.89 ACQUIRED ABSENCE OF OTHER ORGANS 10/04/2018 LYLA LANGE MD Ot E03.9 HYPOTHYROIDISM, UNSPECIFIED 10/04/2018 LYLA LANGE MD Ot F32.9 MAJOR DEPRESSIVE DISORDER, SINGLE EPISOD 10/04/2018 LYLA LANGE MD Ot F41.9 ANXIETY DISORDER, UNSPECIFIED 10/04/2018 LYLA LANGE MD Ot J45.909 UNSPECIFIED ASTHMA, UNCOMPLICATED 10/04/2018 LYLA LANGE MD Ot K21.9 GASTRO-ESOPHAGEAL REFLUX DISEASE WITHOUT 10/04/2018 LYLA LANGE MD Ot L76.34 POSTPROC SEROMA OF SKIN, SUBCU FOLLOWING 10/04/2018 LYLA LANGE MD Ot R10.10 UPPER ABDOMINAL PAIN, UNSPECIFIED 10/04/2018 LYLA LANGE MD Ot R10.84 GENERALIZED ABDOMINAL PAIN 10/04/2018 LYLA LANGE MD Ot R51 HEADACHE 10/04/2018 LYLA LANGE MD Ot Z87.891 PERSONAL HISTORY OF NICOTINE DEPENDENCE 10/04/2018 LYLA LANGE MD Ot Z88.1 ALLERGY STATUS TO OTHER ANTIBIOTIC AGENT 10/04/2018 LYLA LANGE MD Ot Z88.2 ALLERGY STATUS TO SULFONAMIDES STATUS 10/04/2018 LYLA LANGE MD Ot Z88.8 ALLERGY STATUS TO OTH DRUG/MEDS/BIOL SUB 10/04/2018 LYLA LANGE MD Ot Z90.49 ACQUIRED ABSENCE OF OTHER SPECIFIED PART 10/04/2018 LYLA LANGE MD Ot Z90.710 ACQUIRED ABSENCE OF BOTH CERVIX AND UTER 10/04/2018 LYLA LANGE MD Ot Z90.89 ACQUIRED ABSENCE OF OTHER ORGANS 10/05/2018 LYLA LANGE MD Ot E03.9 HYPOTHYROIDISM, UNSPECIFIED 10/05/2018 LYLA LANGE MD Ot F32.9 MAJOR DEPRESSIVE DISORDER, SINGLE EPISOD 10/05/2018 LYLA LANGE MD Ot F41.9 ANXIETY DISORDER, UNSPECIFIED 10/05/2018 LYLA LANGE MD Ot J45.909 UNSPECIFIED ASTHMA, UNCOMPLICATED 10/05/2018 LYLA LANGE MD Ot K21.9 GASTRO-ESOPHAGEAL REFLUX DISEASE WITHOUT 10/05/2018 LYLA LANGE MD Ot L76.34 POSTPROC SEROMA OF SKIN, SUBCU FOLLOWING 10/05/2018 LYLA LANGE MD Ot R10.10 UPPER ABDOMINAL PAIN, UNSPECIFIED 10/05/2018 LYLA LANGE MD Ot R10.84 GENERALIZED ABDOMINAL PAIN 10/05/2018 LYLA LANGE MD Ot R51 HEADACHE 10/05/2018 LYLA LANGE MD Ot Z87.891 PERSONAL HISTORY OF NICOTINE DEPENDENCE 10/05/2018 LYLA LANGE MD Ot Z88.1 ALLERGY STATUS TO OTHER ANTIBIOTIC AGENT 10/05/2018 LYLA LANGE MD Ot Z88.2 ALLERGY STATUS TO SULFONAMIDES STATUS 10/05/2018 LYLA LANGE MD Ot Z88.8 ALLERGY STATUS TO OTH DRUG/MEDS/BIOL SUB 10/05/2018 LYLA LANGE MD Ot Z90.49 ACQUIRED ABSENCE OF OTHER SPECIFIED PART 10/05/2018 LYLA LANGE MD Ot Z90.710 ACQUIRED ABSENCE OF BOTH CERVIX AND UTER 10/05/2018 LYLA LANGE MD Ot Z90.89 ACQUIRED ABSENCE OF OTHER ORGANS 11/08/2018 YUMIKO PUGH DO Ot E03.9 HYPOTHYROIDISM, UNSPECIFIED 11/08/2018 YUMIKO PUGH DO Ot F32.9 MAJOR DEPRESSIVE DISORDER, SINGLE EPISOD 11/08/2018 YUMIKO PUGH DO Ot J45.909 UNSPECIFIED ASTHMA, UNCOMPLICATED 11/08/2018 YUMIKO PUGH DO Ot K21.9 GASTRO- ESOPHAGEAL REFLUX DISEASE WITHOUT 11/08/2018 YUMIKO PUGH DO Ot M41.9 SCOLIOSIS, UNSPECIFIED 11/08/2018 YUMIKO PUGH DO Ot R10.33 PERIUMBILICAL PAIN 11/08/2018 YMUIKO PUGH DO Ot Z87.19 PERSONAL HISTORY OF OTHER DISEASES OF TH 11/08/2018 YUMIKO PUGH DO Ot Z87.891 PERSONAL HISTORY OF NICOTINE DEPENDENCE 11/08/2018 YUMIKO PUGH DO Ot Z88.1 ALLERGY STATUS TO OTHER ANTIBIOTIC AGENT 11/08/2018 YUMIKO PUGH DO Ot Z88.2 ALLERGY STATUS TO SULFONAMIDES STATUS 11/08/2018 YUMIKO PUGH DO Ot Z88.8 ALLERGY STATUS TO OTH DRUG/MEDS/BIOL SUB 11/08/2018 YUMIKO PUGH DO Ot Z90.49 ACQUIRED ABSENCE OF OTHER SPECIFIED PART 11/08/2018 YUMIKO PUGH DO Ot Z90.710 ACQUIRED ABSENCE OF BOTH CERVIX AND UTER 11/08/2018 YUMIKO PUGH DO Ot Z98.890 OTHER SPECIFIED POSTPROCEDURAL STATES 11/10/2018 ECTOR GR APRN Ot R10.31 RIGHT LOWER QUADRANT PAIN 11/10/2018 SIMÓN ECTOR Yann FACULTY DEAN Ot Z90.49 ACQUIRED ABSENCE OF OTHER SPECIFIED PART 11/10/2018 ECTOR GR FACULTY DEAN Ot Z98.890 OTHER SPECIFIED POSTPROCEDURAL STATES 11/14/2018 YUMIKO PUGH DO, Ot E03.9 HYPOTHYROIDISM, UNSPECIFIED 11/14/2018 YUMIKO PUGH DO Ot F32.9 MAJOR DEPRESSIVE DISORDER, SINGLE EPISOD 11/14/2018 YUMIKO PUGH DO, Ot J45.909 UNSPECIFIED ASTHMA, UNCOMPLICATED 11/14/2018 YUMIKO PUGH DO Ot K21.9 GASTRO- ESOPHAGEAL REFLUX DISEASE WITHOUT 11/14/2018 YUMIKO PUGH DO, Ot M41.9 SCOLIOSIS, UNSPECIFIED 11/14/2018 YUMIKO PUGH DO Ot R10.33 PERIUMBILICAL PAIN 11/14/2018 YUMIKO PUGH DO Ot Z87.19 PERSONAL HISTORY OF OTHER DISEASES OF TH 11/14/2018 YUMIKO PUGH DO, Ot Z87.891 PERSONAL HISTORY OF NICOTINE DEPENDENCE 11/14/2018 YUMIKO PUGH DO, Ot Z88.1 ALLERGY STATUS TO OTHER ANTIBIOTIC AGENT 11/14/2018 YUMIKO PUGH DO Ot Z88.2 ALLERGY STATUS TO SULFONAMIDES STATUS 11/14/2018 YUMIKO PUGH DO Ot Z88.8 ALLERGY STATUS TO OTH DRUG/MEDS/BIOL SUB 11/14/2018 YUMIKO PUGH DO Ot Z90.49 ACQUIRED ABSENCE OF OTHER SPECIFIED PART 11/14/2018 YUMIKO PUGH DO Ot Z90.710 ACQUIRED ABSENCE OF BOTH CERVIX AND UTER 11/14/2018 YUMIKO PUGH DO Ot Z98.890 OTHER SPECIFIED POSTPROCEDURAL STATES Procedures Code Description [place] [address] ROUTINE VENIPUNCTURE 04/06/2014 24667 CBC 04/06/2014 33323 MAMMOGRAM, SCREENING 04/24/2014 89635 PAP SMEAR 04/24/2014 Q0091 PAP SMEAR OBTAIN SMEAR 04/24/2014 11980 ROUTINE VENIPUNCTURE 10/12/2014 93222 US LIVER ULTRASOUND 10/12/2014 00254 CMP 10/12/2014 57081 MAGNESIUM 10/12/2014 13448 TSH 10/12/2014 73399 CBC 10/12/2014 21833 Intravenous infusion, hydration; each ad GISELA RANDOLPH 07/12/2017 38670 Therapeutic, prophylactic, or diagnostic GISELA RANDOLPH 07/12/2017 27587 Therapeutic, prophylactic, or diagnostic GISELA RANDOLPH 07/12/2017 56066 Therapeutic, prophylactic, or diagnostic EWELINA RANDOLPHIN 07/12/2017 78694 Emergency department visit for the evalu EWELINA RANDOLPHIN 07/12/2017 Results Test Result Range Complete blood [...] Automated erythrocyte mean corpuscular hemoglobin concentration measurement (mass/volume) 35 g/dL 32-36 Automated erythrocyte distribution width ratio 12.7 % 10.0- 14.5 Automated blood platelet count (count/volume) 193 10*3/uL [...] Blood monocytes automated count (number/volume) 0.6 10*3 0.0- 1.0 Automated eosinophil count 0.0 10*3/uL 0.0-0.3 Automated [...] or plasma urea nitrogen/creatinine mass ratio 13 0- 20 Serum or plasma creatinine measurement with calculation of estimated glomerular filtration rate 41 NRG Serum or plasma glucose measurement (mass/volume) 125 mg/dL 70-105 Serum or plasma calcium measurement (mass/volume) 10.0 mg/dL 8.5-10.1 Serum or plasma total bilirubin measurement (mass/volume) 0.5 mg/dL 0.1-1.0 Serum or plasma alkaline phosphatase measurement (enzymatic activity/volume) 85 U/L 40-136 Serum or plasma aspartate aminotransferase measurement (enzymatic activity/volume) 32 U/L 5-34 Serum or plasma alanine aminotransferase measurement (enzymatic activity/volume) 50 U/L 0-55 Serum or plasma protein [...] gravity of urine by test strip 1.010 1.016-1.022 Urine protein assay by test strip, semi-quantitative [...] sediment leukocyte count by microscopy (number/high power field) [HPF] NRG Bacteria detection in urine sediment by light microscopy FEW NRG Squamous epithelial cells detection in urine sediment by light microscopy 2-5 NRG Crystals detection in urine sediment by light microscopy NONE NRG Casts detection in urine sediment by light microscopy NONE NRG Mucus detection in urine sediment by light microscopy NEGATIVE NRG Complete urinalysis with reflex to culture NO NRG BNP - 03/17/17 10:46 B-Type Natriuretic Peptide [...] NEG Ketones, UA NEGATIVE mg/dL NEG Specific [place], UA 1.024 1.003-1.030 Blood, UA MODERATE NEG [...] Automated erythrocyte mean corpuscular hemoglobin concentration measurement (mass/volume) 34 g/dL 32-36 Automated erythrocyte distribution width ratio 12.9 % 10.0- 14.5 Automated blood platelet count (count/volume) 171 10*3/uL [...] Blood monocytes automated count (number/volume) 0.6 10*3 0.0- 1.0 Automated eosinophil count 0.1 10*3/uL 0.0-0.3 Automated [...] Serum or plasma aspartate aminotransferase measurement (enzymatic activity/volume) 31 U/L 5-34 Serum or plasma alanine aminotransferase measurement (enzymatic activity/volume) 52 U/L 0-55 Serum or plasma protein measurement (mass/volume) 8.1 g/dL 6.4-8.2 Serum or plasma albumin measurement (mass/volume) 4.6 g/dL 3.2-4.5 Serum or plasma thyrotropin measurement by detection limit <=0.05 miu/l (units/volume) - 06/27/18 19:53 Serum or plasma thyrotropin measurement by detection limit <=0.05 miu/l (units/volume) 1.62 u[iU]/mL 0.35-4.94 Erythrocyte sedimentation rate by westergren method - 06/27/18 19:53 Erythrocyte sedimentation rate by westergren method 18 mm 0-20 Serum or plasma C reactive protein measurement (mass/volume) - 06/27/18 19:53 Serum or plasma C reactive protein measurement (mass/volume) 0.67 mg/dL 0.00-0.50 Influenza virus A and B antigen detection - 06/27/18 20:38 FLU RESULT NEGATIVE FOR INFLUENZA A AND B ANTIGENS BY [facility] Automated blood complete blood count [...] Automated erythrocyte mean corpuscular hemoglobin concentration measurement (mass/volume) 35 g/dL 32-36 Automated erythrocyte distribution width ratio 13.1 % 10.0- 14.5 Automated blood platelet count (count/volume) 149 10*3/uL [...] Serum or plasma aspartate aminotransferase measurement (enzymatic activity/volume) 26 U/L 5-34 Serum or plasma alanine aminotransferase measurement (enzymatic activity/volume) 43 U/L 0-55 Serum or plasma protein measurement (mass/volume) 6.0 g/dL 6.4-8.2 Serum or plasma albumin measurement (mass/volume) 4.0 g/dL 3.2-4.5 CALCIUM CORRECTED 8.9 mg/dL 8.5-10.1 Lipid 1996 panel - 07/19/18 07:45 Serum or plasma triglyceride measurement (mass/volume) 191 mg/dL <150 Serum or plasma cholesterol measurement (mass/volume) 248 mg/dL < 200 Serum or plasma cholesterol in HDL measurement (mass/volume) 58 mg/dL 40-60 Cholesterol in LDL [mass/volume] in serum or plasma by direct assay 152 mg/dL 1-129 Serum or plasma cholesterol in VLDL measurement (mass/volume) 38 mg/dL 5-40 Methicillin resistant Staphylococcus aureus (MRSA) screening culture - 07/19/18 07:45 Methicillin resistant Staphylococcus aureus (MRSA) screening culture NEG NRG Complete urinalysis with reflex to culture - 08/29/18 12:50 Urine color determination YELLOW NRG Urine clarity determination CLEAR NRG Urine pH measurement by test strip 6.5 5-9 Specific gravity of urine by test strip 1.025 1.016-1.022 Urine protein assay by test strip, semi-quantitative [...] sediment leukocyte count by microscopy (number/high power field) NONE NRG Bacteria detection in urine sediment [...] Automated erythrocyte mean corpuscular hemoglobin concentration measurement (mass/volume) 34 g/dL 32-36 Automated erythrocyte distribution width ratio 12.7 % 10.0- 14.5 Automated blood platelet count (count/volume) 150 10*3/uL [...] Blood monocytes automated count (number/volume) 0.4 10*3 0.0- 1.0 Automated eosinophil count 0.1 10*3/uL 0.0-0.3 Automated [...] Serum or plasma aspartate aminotransferase measurement (enzymatic activity/volume) 31 U/L 5-34 Serum or plasma alanine aminotransferase measurement (enzymatic activity/volume) 43 U/L 0-55 Serum or plasma protein measurement (mass/volume) 6.7 g/dL 6.4-8.2 Serum or plasma albumin measurement (mass/volume) 3.9 g/dL 3.2-4.5 CALCIUM CORRECTED 9.2 mg/dL 8.5-10.1 Lipase - 08/29/18 13:21 Lipase 32 U/L 8-78 Complete blood count (CBC) with automated white blood cell (WBC) differential - 10/04/18 00:00 Blood leukocytes automated count (number/volume) 6.3 10*3/uL 4.3-11.0 Blood erythrocytes automated count (number/volume) 4.34 10*6/uL 4.35-5.85 Venous blood hemoglobin measurement (mass/volume) 13.9 g/dL 11.5-16.0 Blood hematocrit (volume fraction) 41 % 35-52 Automated erythrocyte mean corpuscular volume 94 [foz_us] 80-99 Automated erythrocyte mean corpuscular hemoglobin (mass per erythrocyte) 32 pg 25-34 Automated erythrocyte mean corpuscular hemoglobin concentration measurement (mass/volume) 34 g/dL 32-36 Automated erythrocyte distribution width ratio 12.5 % 10.0- 14.5 Automated blood platelet count (count/volume) 149 10*3/uL 130-400 Automated blood platelet mean volume measurement 10.8 [foz_us] 7.4-10.4 Automated blood neutrophils/100 leukocytes 47 % 42-75 Automated blood lymphocytes/100 leukocytes 40 % 12-44 Blood monocytes/100 leukocytes 10 % 0-12 Automated blood eosinophils/100 leukocytes 2 % 0-10 Automated blood basophils/100 leukocytes 0 % 0-10 Blood neutrophils automated count (number/volume) 3.0 10*3 1.8-7.8 Blood lymphocytes automated count (number/volume) 2.5 10*3 1.0-4.0 Blood monocytes automated count (number/volume) 0.6 10*3 0.0- 1.0 Automated eosinophil count 0.1 10*3/uL 0.0-0.3 Automated blood basophil count (count/volume) 0.0 10*3/uL 0.0-0.1 Comprehensive metabolic panel - 10/04/18 00:00 Serum or plasma sodium measurement (moles/volume) 143 mmol/L 135-145 Serum or plasma potassium measurement (moles/volume) 4.0 mmol/L 3.6-5.0 Serum or plasma chloride measurement (moles/volume) 103 mmol/L 98-107 Carbon dioxide 30 mmol/L 21-32 Serum or plasma anion gap determination (moles/volume) 10 mmol/L 5-14 Serum or plasma urea nitrogen measurement (mass/volume) 19 mg/dL 7-18 Serum or plasma creatinine measurement (mass/volume) 0.99 mg/dL 0.60-1.30 Serum or plasma urea nitrogen/creatinine mass ratio 19 NRG Serum or plasma creatinine measurement with calculation of estimated glomerular filtration rate 60 NRG Serum or plasma glucose measurement (mass/volume) 114 mg/dL 70-105 Serum or plasma calcium measurement (mass/volume) 9.2 mg/dL 8.5-10.1 Serum or plasma total bilirubin measurement (mass/volume) 0.2 mg/dL 0.1-1.0 Serum or plasma alkaline phosphatase measurement (enzymatic activity/volume) 90 U/L 40-136 Serum or plasma aspartate aminotransferase measurement (enzymatic activity/volume) 20 U/L 5-34 Serum or plasma alanine aminotransferase measurement (enzymatic activity/volume) 33 U/L 0-55 Serum or plasma protein measurement (mass/volume) 6.6 g/dL 6.4-8.2 Serum or plasma albumin measurement (mass/volume) 4.0 g/dL 3.2-4.5 CALCIUM CORRECTED 9.2 mg/dL 8.5-10.1 Lipase - 10/04/18 00:00 Lipase 38 U/L 8-78 PT panel in platelet poor plasma by coagulation assay - 11/03/18 04:50 Prothrombin time (PT) in platelet poor plasma by coagulation assay 12.8 s 12.2-14.7 INR in platelet poor plasma or blood by coagulation assay 0.9 0.8-1.4 Activated partial thromboplastin time (aPTT) in platelet poor plasma bycoagulation assay - 11/03/18 04:50 Activated partial thromboplastin time (aPTT) in platelet poor plasma bycoagulation assay 26 s 24-35 Complete blood count (CBC) with automated white blood cell (WBC) differential - 11/03/18 04:50 Blood leukocytes automated count (number/volume) 8.8 10*3/uL 4.3-11.0 Blood erythrocytes automated count (number/volume) 4.39 10*6/uL 4.35-5.85 Venous blood hemoglobin measurement (mass/volume) 14.1 g/dL 11.5-16.0 Blood hematocrit (volume fraction) 41 % 35-52 Automated erythrocyte mean corpuscular volume 93 [foz_us] 80-99 Automated erythrocyte mean corpuscular hemoglobin (mass per erythrocyte) 32 pg 25-34 Automated erythrocyte mean corpuscular hemoglobin concentration measurement (mass/volume) 35 g/dL 32-36 Automated erythrocyte distribution width ratio 12.4 % 10.0- 14.5 Automated blood platelet count (count/volume) 162 10*3/uL 130-400 Automated blood platelet mean volume measurement 10.4 [foz_us] 7.4-10.4 Automated blood neutrophils/100 leukocytes 48 % 42-75 Automated blood lymphocytes/100 leukocytes 42 % 12-44 Blood monocytes/100 leukocytes 9 % 0-12 Automated blood eosinophils/100 leukocytes 1 % 0-10 Automated blood basophils/100 leukocytes 0 % 0-10 Blood neutrophils automated count (number/volume) 4.2 10*3 1.8-7.8 Blood lymphocytes automated count (number/volume) 3.7 10*3 1.0-4.0 Blood monocytes automated count (number/volume) 0.8 10*3 0.0- 1.0 Automated eosinophil count 0.1 10*3/uL 0.0-0.3 Automated blood basophil count (count/volume) 0.0 10*3/uL 0.0-0.1 Comprehensive metabolic panel - 11/03/18 04:50 Serum or plasma sodium measurement (moles/volume) 137 mmol/L 135-145 Serum or plasma potassium measurement (moles/volume) 3.4 mmol/L 3.6-5.0 Serum or plasma chloride measurement (moles/volume) 95 mmol/L 98-107 Carbon dioxide 21 mmol/L 21-32 Serum or plasma anion gap determination (moles/volume) 21 mmol/L 5-14 Serum or plasma urea nitrogen measurement (mass/volume) 17 mg/dL 7-18 Serum or plasma creatinine measurement (mass/volume) 1.03 mg/dL 0.60-1.30 Serum or plasma urea nitrogen/creatinine mass ratio 17 NRG Serum or plasma creatinine measurement with calculation of estimated glomerular filtration rate 57 NRG Serum or plasma glucose measurement (mass/volume) 126 mg/dL 70-105 Serum or plasma calcium measurement (mass/volume) 9.1 mg/dL 8.5-10.1 Serum or plasma total bilirubin measurement (mass/volume) 0.3 mg/dL 0.1-1.0 Serum or plasma alkaline phosphatase measurement (enzymatic activity/volume) 95 U/L 40-136 Serum or plasma aspartate aminotransferase measurement (enzymatic activity/volume) 19 U/L 5-34 Serum or plasma alanine aminotransferase measurement (enzymatic activity/volume) 36 U/L 0-55 Serum or plasma protein measurement (mass/volume) 7.0 g/dL 6.4-8.2 Serum or plasma albumin measurement (mass/volume) 4.3 g/dL 3.2-4.5 CALCIUM CORRECTED 8.9 mg/dL 8.5-10.1 Magnesium - 11/03/18 04:50 Magnesium 1.9 mg/dL 1.8-2.4 Lipase - 11/03/18 04:50 Lipase 31 U/L 8-78 TROPONIN T - 11/03/18 04:50 TROPONIN T 8 % <=10 PROBNP FS - 11/03/18 04:50 PROBNP FS 27.9 pg/mL <75.0 Complete blood count (CBC) with automated white blood cell (WBC) differential - 11/08/18 13:00 Blood leukocytes automated count (number/volume) 6.5 10*3/uL 4.3-11.0 Blood erythrocytes automated count (number/volume) 4.64 10*6/uL 4.35-5.85 Venous blood hemoglobin measurement (mass/volume) 14.5 g/dL 11.5-16.0 Blood hematocrit (volume fraction) 43 % 35-52 Automated erythrocyte mean corpuscular volume 93 [foz_us] 80-99 Automated erythrocyte mean corpuscular hemoglobin (mass per erythrocyte) 31 pg 25-34 Automated erythrocyte mean corpuscular hemoglobin concentration measurement (mass/volume) 34 g/dL 32-36 Automated erythrocyte distribution width ratio 12.6 % 10.0- 14.5 Automated blood platelet count (count/volume) 154 10*3/uL 130-400 Automated blood platelet mean volume measurement 10.8 [foz_us] 7.4-10.4 Automated blood neutrophils/100 leukocytes 56 % 42-75 Automated blood lymphocytes/100 leukocytes 33 % 12-44 Blood monocytes/100 leukocytes 9 % 0-12 Automated blood eosinophils/100 leukocytes 2 % 0-10 Automated blood basophils/100 leukocytes 0 % 0-10 Blood neutrophils automated count (number/volume) 3.7 10*3 1.8-7.8 Blood lymphocytes automated count (number/volume) 2.1 10*3 1.0-4.0 Blood monocytes automated count (number/volume) 0.6 10*3 0.0- 1.0 Automated eosinophil count 0.1 10*3/uL 0.0-0.3 Automated blood basophil count (count/volume) 0.0 10*3/uL 0.0-0.1 Comprehensive metabolic panel - 11/08/18 13:00 Serum or plasma sodium measurement (moles/volume) 142 mmol/L 135-145 Serum or plasma potassium measurement (moles/volume) 4.0 mmol/L 3.6-5.0 Serum or plasma chloride measurement (moles/volume) 100 mmol/L 98-107 Carbon dioxide 27 mmol/L 21-32 Serum or plasma anion gap determination (moles/volume) 15 mmol/L 5-14 Serum or plasma urea nitrogen measurement (mass/volume) 18 mg/dL 7-18 Serum or plasma creatinine measurement (mass/volume) 1.01 mg/dL 0.60-1.30 Serum or plasma urea nitrogen/creatinine mass ratio 18 NRG Serum or plasma creatinine measurement with calculation of estimated glomerular filtration rate 58 NRG Serum or plasma glucose measurement (mass/volume) 101 mg/dL 70-105 Serum or plasma calcium measurement (mass/volume) 9.6 mg/dL 8.5-10.1 Serum or plasma total bilirubin measurement (mass/volume) 0.4 mg/dL 0.1-1.0 Serum or plasma alkaline phosphatase measurement (enzymatic activity/volume) 95 U/L 40-136 Serum or plasma aspartate aminotransferase measurement (enzymatic activity/volume) 30 U/L 5-34 Serum or plasma alanine aminotransferase measurement (enzymatic activity/volume) 38 U/L 0-55 Serum or plasma protein measurement (mass/volume) 7.0 g/dL 6.4-8.2 Serum or plasma albumin measurement (mass/volume) 4.2 g/dL 3.2-4.5 CALCIUM CORRECTED 9.4 mg/dL 8.5-10.1 Lipase - 11/08/18 13:00 Lipase 38 U/L 8-78 Encounters ACCT No. Visit Date/Time Discharge Status Pt. Type Provider Facility Loc./Unit Complaint [id number] 10/12/2014 09:53:00 10/12/2014 23:59:59 CLS Outpatient KIM MITCHELL MD [id number] 06/18/2014 09:06:00 06/18/2014 23:59:59 CLS Outpatient DANIELA JACOBSON DDS [id number] 04/23/2014 15:22:00 04/23/2014 23:59:59 CLS Outpatient KIM MITCHELL MD [id number] 04/23/2014 15:22:00 04/23/2014 23:59:59 CLS Outpatient KIM MITCHELL MD [id number] 04/06/2014 11:00:00 04/06/2014 23:59:59 CLS Outpatient KIM MITCHELL MD [id number] 04/03/2014 17:30:00 04/03/2014 23:59:59 CLS Outpatient KIM MITCHELL MD [id number] 07/12/2017 16:59:00 07/13/2017 00:16:00 DIS Emergency ReyesKacey chester [facility] ER Cardiac [id number] 11/08/2018 11:20:00 11/08/2018 23:59:59 CLS [facility] [id number] 05/04/2017 08:40:00 Document Registration [id number] 03/17/2017 09:40:00 Document Registration [id number] 11/17/2018 06:59:00 11/17/2018 23:59:59 CLS Preadmit ELAINA RAMÍREZ [facility] SLEEP LYDIA G47.33 [id number] 11/14/2018 12:58:00 11/14/2018 23:59:59 CLS Outpatient ELAINA RAMÍREZ [facility] RAD LUMBAR DEGENERATIVE DISC DISEASE [id number] 11/08/2018 11:39:00 11/08/2018 14:36:00 DIS Outpatient YUMIKO PUGH DO [facility] ER FS ABD PAIN [id number] 11/03/2018 02:47:00 11/03/2018 06:00:00 DIS Emergency LYLA LANGE MD [facility] ER FS LIGHT HEADED;HEADACHE [id number] 10/03/2018 22:16:00 10/04/2018 02:50:00 DIS Emergency LYLA LANGE MD [facility] ER FS ABD PAIN [id number] 09/01/2018 16:40:00 09/01/2018 17:08:00 DIS Emergency YUMIKO PUGH DO [facility] ER FS ABD PAIN,SOB [id number] 08/29/2018 12:40:00 08/29/2018 16:10:00 DIS Emergency LEONIDES ALFARO MD [facility] ER FS ABD PAIN [id number] 08/05/2018 14:05:00 08/05/2018 23:59:59 CLS Outpatient RICHA WIGGINS FACULTY DEAN [facility] RAD BILATERAL LOWER EXTREMITY EDEMA [id number] 07/19/2018 07:12:00 07/19/2018 13:06:00 DIS Outpatient LUCIA IGNACIO FACC, NICHELLE PIERCE CCDS [facility] CATH CHEST DISCOMFORT,PALPITATIONS,SOB,OBESITY [id number] 07/15/2018 14:57:00 07/15/2018 23:59:59 CLS Outpatient ECTOR GR FACULTY DEAN [facility] RAD RLQ ABD PAIN [id number] 07/08/2018 14:13:00 07/08/2018 23:59:59 CLS Preadmit LUCIA IGNACIO FACMiguelito, NICHELLE PIRECE CCDS [facility] CARD CHEST DISCOMFORT,PALPITATIONS,SOB,OBESITY [id number] 07/08/2018 14:13:00 07/08/2018 23:59:59 CLS Preadmit LUCIA IGNACIO FACMiguelito, NICHELLE FACP CCDS [facility] CARD CHEST DISCOMFORT,PALPITATIONS,SOB,OBESITY [id number] 07/06/2018 14:48:00 07/06/2018 23:59:59 CLS Outpatient ARMANDO IGNACIO, ARIES Anglin (DDU) [facility] RT ASTHMA [id number] 06/27/2018 18:28:00 06/27/2018 22:02:00 DIS Emergency EDDI RAMIREZ [facility] ER LETHARGIC,BODY ACHES [id number] 05/14/2017 08:00:00 05/14/2017 23:59:59 CLS Preadmit 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
[2018-11-22] MEDS ORDERED: ONDANSETRON 4 MG/2 ML (SDV) Z0FRAN IVP ONE (22:45)
[2018-11-22] MEDS ORDERED: ANTACID SUSP 30 ML UDC (MYLANTA) PO ONE (22:45)
[2018-11-22] MEDS ORDERED: LIDOCAINE 2% VISCOUS 15 ML UDC PO ONE (22:45)
--- NOTE | 2018-11-22 22:46 | ED Abdominal Pain ---
General Stated Complaint: ABD PAIN Source of Information: Patient Exam Limitations: No Limitations History of Present Illness Date Seen by Provider: November 22, 2018 Time Seen by Provider: 22:31 Initial Comments Patient presents to ER by private conveyance with her significant other and chief complaint for the past 3 hours she's been having some acute on chronic flare of her midepigastric abdominal pain. She says she rates it as severe and radiating towards her left shoulder blade. Previously she's had her gallbladder, appendix and uterus surgically removed. She's had 2 repairs of her ventral abdominal hernia in 2016 and again in 2017 with mesh. She is post to be working with her primary care doctor to get referral to a local surgeon for revision and/or removal of the mesh that seems to be the most likely culprit of her chronic abdominal pain. She has not taken anything for the pain such as pain meds or antacids. She's having some nausea but no vomiting. She had a bowel movement just before coming here that was soft. She was just in the ER couple weeks ago with the same kind of pain had labs and CT scan that did not demonstrate any pathology. She was encouraged at that time to continue working on getting a follow-up appointment with a surgeon. Last time she ate was 3 hours ago when the pain started she had fried chicken and mashed potatoes with gravy. She is on meloxicam daily. She denies a history of pancreatitis. No fevers or chills. Allergies and Home Medications Allergies Coded Allergies: Sulfa (Sulfonamide Antibiotics) (Verified Allergy, Unknown, 06/27/18) hydroxyzine (Verified Allergy, Unknown, 06/27/18) prochlorperazine (Verified Allergy, Unknown, 12/20/16) tetracycline (Verified Allergy, Unknown, 06/27/18) Home Medications Cyclobenzaprine HCl 10 Mg Tablet, 10 MG PO TID PRN for PRN, (Reported) Furosemide 40 Mg Tablet, 40 MG PO DAILY, (Reported) Gabapentin 300 Mg Capsule, 300 MG PO PRN, (Reported) Levothyroxine Sodium 50 Mcg Tablet, 50 MCG PO DAILY, (Reported) Meloxicam 15 Mg Tablet, 15 MG PO DAILY, (Reported) Ondansetron HCl 8 Mg Tablet, 8 MG PO Q6H PRN for NAUSEA/VOMITING-1ST LINE Prescribed by: LEONIDES ALFARO on 08/29/18 1605 Oxycodone HCl/Acetaminophen 1 Each Tablet, 1 TAB PO Q6H PRN for ABDOMINAL PAIN Prescribed by: LEONIDES ALFARO on 08/29/18 1605 Trazodone HCl 100 Mg Tablet, 100 MG PO DAILY, (Reported) Venlafaxine HCl 75 Mg Tab, 75 MG PO BID, (Reported) Patient Home Medication List Home Medication List Reviewed: Yes Review of Systems Review of Systems Constitutional: No chills, No fever EENTM: No Blurred Vision, No Double Vision Respiratory: Denies Cough, Denies Shortness of Air Cardiovascular: Denies Chest Pain, Denies Edema Gastrointestinal: Denies Abdomen Distended; Abdominal Pain; Denies Constipated, Denies Diarrhea; Nausea; Denies Poor Fluid Intake, Denies Vomiting Genitourinary: Denies Burning, Denies Discharge Musculoskeletal: back pain (chronic); No joint pain Past Dghvphp-Faswwh-Wqhwng Hx Patient Social History Alcohol Use: Denies Use Recreational Drug Use: No Smoking Status: Former Smoker Type Used: Cigarettes Former Smoker, Quit: Jun 15, 1996 2nd Hand Smoke Exposure: No Recent Foreign Travel: No Contact w/Someone Who Travel: No Recent Hopitalizations: No Immunizations Up To Date Tetanus Booster (TDap): Less than 5yrs PED Vaccines UTD: Yes Date of Pneumonia Vaccine: Apr 18, 2013 Date of Influenza Vaccine: Apr 18, 2018 Seasonal Allergies Seasonal Allergies: No Past Medical History Surgeries: Yes (HERNIA X3) Abdominal, Appendectomy, Gallbladder, Hysterectomy Respiratory: No Asthma Currently Using CPAP: No Currently Using BIPAP: No Cardiac: No Chronic Edema/Swelling Neurological: No COMMERCIAL SINGER History: Hysterectomy Genitourinary: No Gastrointestinal: No Gastroesophageal Reflux, Gall Bladder Disease Musculoskeletal: Yes (scoliosis, knee pain back pain) Chronic Back Pain Endocrine: Yes Hypothyroidsim HEENT: No Cancer: No Psychosocial: Yes Depression Integumentary: No Blood Disorders: No Adverse Reaction/Blood Tranf: No Physical Exam Vital Signs Vital Signs - First Documented 11/22/18 22:30 Temp 98.2 Pulse 57 Resp 23 B/P (MAP) 147/101 (116) Pulse Ox 97 O2 Delivery Room Air Capillary Refill : Height/Weight/BMI Height: 5'7.00" Weight: 300lbs. 0.0oz. [id number]; 48.6 BMI Method:Stated General Appearance: mild distress, obese HEENT: PERRL/EOMI, pharynx normal Neck: full range of motion, normal inspection Respiratory: no respiratory distress, no accessory muscle use Cardiovascular: normal peripheral pulses, regular rate, rhythm Gastrointestinal: normal bowel sounds, soft, no organomegaly, tenderness (epigastric), other (no mesenteric signs or psoas signs. She has a well-healed large ventral scar which is tender to direct palpation without evidence of erythema, induration or fluctuance.) Neurologic/Psychiatric: alert, normal mood/affect, oriented x 3 Skin: normal color, warm/dry Progress/Results/Core Measures Results/Orders Lab Results Laboratory Tests Test 11/22/18 22:55 11/22/18 23:30 Range/Units White Blood Count 6.4 4.3-11.0 10^3/uL Red Blood Count 4.20 L 4.35-5.85 10^6/uL Hemoglobin 13.4 11.5-16.0 G/DL Hematocrit 40 35-52 % Mean Corpuscular Volume 94 80-99 FL Mean Corpuscular Hemoglobin 32 25-34 PG Mean Corpuscular Hemoglobin Concent 34 32-36 G/DL Red Cell Distribution Width 12.8 10.0-14.5 % Platelet Count 133 130-400 10^3/uL Mean Platelet Volume 10.6 H 7.4-10.4 FL Neutrophils (%) (Auto) 50 42-75 % Lymphocytes (%) (Auto) 39 12-44 % Monocytes (%) (Auto) 9 0-12 % Eosinophils (%) (Auto) 2 0-10 % Basophils (%) (Auto) 0 0-10 % Neutrophils # (Auto) 3.2 1.8-7.8 X 10^3 Lymphocytes # (Auto) 2.5 1.0-4.0 X 10^3 Monocytes # (Auto) 0.6 0.0-1.0 X 10^3 Eosinophils # (Auto) 0.1 0.0-0.3 10^3/uL Basophils # (Auto) 0.0 0.0-0.1 10^3/uL Sodium Level 141 135-145 MMOL/L Potassium Level 4.4 3.6-5.0 MMOL/L Chloride Level 102 98-107 MMOL/L Carbon Dioxide Level 25 21-32 MMOL/L Anion Gap 14 5-14 MMOL/L Blood Urea Nitrogen 14 7-18 MG/DL Creatinine 1.10 0.60-1.30 MG/DL Estimat Glomerular Filtration Rate 53 BUN/Creatinine Ratio 13 Glucose Level 112 H 70-105 MG/DL Calcium Level 8.8 8.5-10.1 MG/DL Corrected Calcium 9.0 8.5-10.1 MG/DL Total Bilirubin 0.3 0.1-1.0 MG/DL Aspartate Amino Transf (AST/SGOT) 22 5-34 U/L Alanine Aminotransferase (ALT/SGPT) 28 0-55 U/L Alkaline Phosphatase 94 40-136 U/L Total Protein 6.5 6.4-8.2 GM/DL Albumin 3.8 3.2-4.5 GM/DL Lipase 42 8-78 U/L Urine Color YELLOW Urine Clarity SLT CLOUDY Urine pH 6.0 5-9 Urine Specific Erwin 1.020 1.016-1.022 Urine Protein 1+ H NEGATIVE Urine Glucose (UA) NEGATIVE NEGATIVE Urine Ketones NEGATIVE NEGATIVE Urine Nitrite NEGATIVE NEGATIVE Urine Bilirubin NEGATIVE NEGATIVE Urine Urobilinogen 0.2 NORMAL MG/DL Urine Leukocyte Esterase NEGATIVE NEGATIVE Urine RBC (Auto) 3+ H NEGATIVE Urine RBC 5-10 H /HPF Urine WBC 0-2 /HPF Urine Squamous Epithelial Cells 2-5 /HPF Urine Crystals NONE /LPF Urine Bacteria MODERATE H /HPF Urine Casts NONE /LPF Urine Mucus NONE /LPF Urine Culture Indicated NO Urine Test NEGATIVE NEGATIVE Urine Opiates Screen NEGATIVE NEGATIVE Urine Oxycodone Screen NEGATIVE NEGATIVE Urine Methadone Screen NEGATIVE NEGATIVE Urine Propoxyphene Screen NEGATIVE NEGATIVE Urine Barbiturates Screen NEGATIVE NEGATIVE Ur Tricyclic Antidepressants Screen NEGATIVE NEGATIVE Urine Phencyclidine Screen NEGATIVE NEGATIVE Urine Amphetamines Screen NEGATIVE NEGATIVE Urine Methamphetamines Screen NEGATIVE NEGATIVE Urine Benzodiazepines Screen NEGATIVE NEGATIVE Urine Cocaine Screen NEGATIVE NEGATIVE Urine Cannabinoids Screen NEGATIVE NEGATIVE My Orders Orders - RANJEET,ELEN J Ua Culture If Indicated (11/22/18 22:26) Drug Screen Stat (Urine) (11/22/18 22:26) Hcg,Qualitative Urine (11/22/18 22:26) Cbc With Automated Diff (11/22/18 22:37) Comprehensive Metabolic Panel (11/22/18 22:37) Lipase (11/22/18 22:37) Ed Iv/Invasive Line Start (11/22/18 22:37) Ns Iv 1000 Ml (Sodium Chloride 0.9%) (11/22/18 22:37) Ondansetron Injection (Zofran Injectio (11/22/18 22:45) Lidocaine 2% Viscous 15 Ml (Xylocaine Vi (11/22/18 22:45) Famotidine Tablet (Pepcid Tablet) (11/22/18 22:37) Antacid Suspension (Mylanta Suspension (11/22/18 22:45) Ketorolac Injection (Toradol Injection) (11/22/18 23:30) Fentanyl Injection (Sublimaze Injection (11/23/18 00:30) Ondansetron Injection (Zofran Injectio (11/23/18 00:30) Ct Abdomen/Pelvis Wo (11/23/18 00:45) Medications Given in ED Current Medications Medications Dose Ordered Sig/Ashley Route Start Time Stop Time Status Last Admin Dose Admin Al Hydrox/Mg Hydrox/Simethicone 30 ml ONCE ONCE PO 11/22/18 22:45 11/22/18 22:46 DC 11/22/18 23:03 30 ML Fentanyl Citrate 75 mcg ONCE ONCE IVP 11/23/18 00:30 11/23/18 00:31 DC 11/23/18 00:32 75 MCG Ketorolac Tromethamine 30 mg ONCE ONCE IVP 11/22/18 23:30 11/22/18 23:31 DC 11/22/18 23:49 30 MG Lidocaine HCl 15 ml ONCE ONCE PO 11/22/18 22:45 11/22/18 22:46 DC 11/22/18 23:04 15 ML Ondansetron HCl 4 mg ONCE ONCE IVP 11/22/18 22:45 11/22/18 22:46 DC 11/22/18 23:02 4 MG Ondansetron HCl 8 mg ONCE ONCE IVP 11/23/18 00:30 11/23/18 00:31 DC 11/23/18 00:35 8 MG Vital Signs/I&O 11/22/18 22:30 Temp 98.2 Pulse 57 Resp 23 B/P (MAP) 147/101 (116) Pulse Ox 97 O2 Delivery Room Air Progress Progress Note : Time: 22:45 Progress Note Recurrence of her abdominal wall pain versus gastritis/PUD versus pancreatitis versus other? She's having bowel movements so incarceration is less likely. She just had a CT scan less than 2 weeks ago her belly for the same symptoms. We'll obtain labs and urine first before we commit her to more radiation. GI cocktail and a liter fluids in case pancreatitis is the source. If the GI cocktail does not help then we'll try some fentanyl. She is on daily meloxicam which increases the likelihood of a gastritis PUD. Zofran IV. Diagnostic Imaging Diagonstic Imaging: CT (noncontrast) Plain Films/CT/US/NM/MRI: abdomen, pelvis Comments Post central hernia repair with infraumbilical subcutaneous seroma measuring 4.8 x 6.8 x 8.6 cm without significant foreign exchange trader the interval from prior study of 11/08/2017 and seen with similar size on 10/04/18. Postcholecystectomy with normal common bile duct. Post appendectomy. Fatty liver. Mild splenomegaly. Reviewed: Reviewed by Me Departure Impression Primary Impression: Abdominal wall pain Additional Impression: Seroma after procedure Disposition: 01 HOME, SELF-CARE Condition: Stable Departure-Patient Inst. Decision time for Depature: 01:47 Referrals: NO,LOCAL PHYSICIAN (PCP) Primary Care Physician CONRADO LILLY MD (Family) Primary Care Physician Patient Instructions: Abdominal Hernia (DC) Add. Discharge Instructions: It would be ugarte for you to follow up with your primary care doctor and get plugged in with a general surgeon to discuss outpatient management of your abdominal wall pain. Tylenol 650 mg every 8 hours as needed for pain. Hydrocodone one tablet every 6 hours as needed for breakthrough pain that you cannot stand. Hydrocodone will cause drowsiness and constipation so you should use MiraLAX every day that you take a hydrocodone. While there is nothing dangerous about her abdominal wall pain until you go and see a surgeon to see if there is anything you can do about it and it is not likely to go away very quickly. It may spontaneously go away on its own but she should talk to a surgeon about whether you can get some help fixing it sooner. Scripts Hydrocodone/Acetaminophen (Hydrocodone-Acetamin 5-325 mg) 1 Each Tablet 1 TAB PO Q4-6HR for PAIN-MODERATE, #14 TAB 0 Refills Prov: ELEN POLLACK 11/23/18 ELEN POLLACK November 22, 2018 22:46
[2018-11-22 23:02] LABS: HEMATOCRIT 40 % (35-52); HEMOGLOBIN 13.4 G/DL (11.5-16.0); MEAN CORPUSCULAR HEMOGLOBIN 32 PG (25-34); MEAN CORPUSCULAR HGB CONC 34 G/DL (32-36); MEAN CORPUSCULAR VOLUME 94 FL (80-99); MEAN PLATELET VOLUME 10.6 FL (7.4-10.4); PLATELET COUNT 133 10^3/uL (130-400); RED CELL DISTRIBUTION WIDTH 12.8 % (10.0-14.5); WHITE BLOOD COUNT 6.4 10^3/uL (4.3-11.0)
[2018-11-22 23:03] LABS: BASOPHILS % (AUTO) 0 % (0-10); EOSINOPHILS # (AUTO) 0.1 10^3/uL (0.0-0.3); EOSINOPHILS % (AUTO) 2 % (0-10); LYMPHOCYTES # (AUTO) 2.5 X 10^3 (1.0-4.0); LYMPHOCYTES % (AUTO) 39 % (12-44); MONOCYTES # (AUTO) 0.6 X 10^3 (0.0-1.0); MONOCYTES % (AUTO) 9 % (0-12); NEUTROPHILS # (AUTO) 3.2 X 10^3 (1.8-7.8); NEUTROPHILS % (AUTO) 50 % (42-75)
[2018-11-22 23:23] LABS: POTASSIUM 4.4 MMOL/L (3.6-5.0)
[2018-11-22 23:24] LABS: ALBUMIN 3.8 GM/DL (3.2-4.5); BILIRUBIN,TOTAL 0.3 MG/DL (0.1-1.0); CALCIUM 8.8 MG/DL (8.5-10.1); CREATININE SERUM 1.1 MG/DL (0.60-1.30); TOTAL PROTEIN 6.5 GM/DL (6.4-8.2)
[2018-11-22] MEDS ORDERED: KETOROLAC 30 MG/ML VIAL IVP ONE (23:30)
[2018-11-22 23:57] LABS: HCG,QUALITATIVE URINE NEGATIVE (NEGATIVE)
[2018-11-23 00:10] LABS: AMPHETAMINE SCREEN, URINE NEGATIVE (NEGATIVE); BARBITURATE SCREEN URINE NEGATIVE (NEGATIVE); BENZODIAZEPINES SCREEN URINE NEGATIVE (NEGATIVE); CANNABINOID SCREEN, URINE NEGATIVE (NEGATIVE); COCAINE SCREEN URINE NEGATIVE (NEGATIVE); METHADONE STAT NEGATIVE (NEGATIVE); METHAMPHETAMINE SCREEN URINE S NEGATIVE (NEGATIVE); OPIATE SCREEN URINE NEGATIVE (NEGATIVE); OXYCODONE STAT NEGATIVE (NEGATIVE); PROPOXYPHENE STAT NEGATIVE (NEGATIVE); TRICYCLIC ANTIDEPRESSANTS SCRE NEGATIVE (NEGATIVE)
[2018-11-23 00:14] LABS: CLARITY,URINE SLT CLOUDY; COLOR,URINE YELLOW; GLUCOSE, URINE (UA) NEGATIVE (NEGATIVE); PROTEIN,URINE 1+ (NEGATIVE)
[2018-11-23 00:15] LABS: BACTERIA,URINE MODERATE /HPF; BILIRUBIN,URINE NEGATIVE (NEGATIVE); KETONES,URINE NEGATIVE (NEGATIVE); LEUKOCYTE ESTERASE ,URINE NEGATIVE (NEGATIVE); NITRITE,URINE NEGATIVE (NEGATIVE); UROBILINOGEN,URINE 0.2 MG/DL (NORMAL); WBC,URINE 0-2 /HPF
[2018-11-23] MEDS ORDERED: fentaNYL INJECTION 100 MCG/2 ML AMP IVP ONE (00:30)
[2018-11-23] MEDS ORDERED: ONDANSETRON 4 MG/2 ML (SDV) Z0FRAN IVP ONE (00:30)
[2018-11-23] MEDS ORDERED: HYDR-3812 PO (01:50)
[2018-11-23] MEDS ORDERED: HYDROcodone/APAP 5 MG/325 MG (LORTAB) TAB PO ONE (02:00)
[2018-11-23 02:10] VITALS: BP 156/94
--- NOTE | 2018-11-23 07:18 | Diagnostic Imaging Report ---
PROCEDURE: CT abdomen and pelvis without contrast. TECHNIQUE: Multiple contiguous axial images were obtained through the abdomen and pelvis without the use of intravenous contrast. Auto Exposure Controls were utilized during the CT exam to meet ALARA standards for radiation dose reduction. INDICATION: Abdominal pain. History of hernia repair. COMPARISON: 11/08/2018 FINDINGS: Included portions of the lung bases are clear. CT abdomen: Appendix appears to be surgically absent. Small bowel loops are nondistended. The kidneys, adrenal glands, spleen, and pancreas have an unremarkable noncontrast CT appearance. Liver is enlarged and diffusely hypodense consistent with background of hepatic steatosis. Patient appears to be status post previous ventral hernia repair. There is focal fluid collection within the anterior subcutaneous soft tissues that measures 6.5 x 4.6 x 8.2 cm. This is essentially stable compared to 6.6 x 4.5 x 8.1 cm previously. No new loculated fluid collection is seen within the abdomen. There is no free fluid or free air. No abnormal adenopathy is identified. Bony structures show no acute abnormalities. CT pelvis: Urinary bladder is unopacified and compressed. There is no loculated fluid collection, free fluid, or free air within the pelvis. No abnormal lymph nodes are identified. Bony structures show no acute abnormalities. IMPRESSION: 1. Postsurgical changes of previous ventral hernia repair. There is stable focal fluid collection within the anterior subcutaneous soft tissues of the pelvis consistent with probable postsurgical seroma, hematoma, or potential abscess. 2. Hepatomegaly with hepatic steatosis. Dictated by: Dictated on workstation # [id number]
== END 2018-11-23 02:10 | disposition home or self-care (01) ==
LOC: EDUNIT# 22:25 → ER FS 22:26
DX: L76.34 Postprocedural seroma of skin and subcutaneous tissue following other procedure (principal); R10.13 Epigastric pain; J45.909 Unspecified asthma, uncomplicated; K21.9 Gastro-esophageal reflux disease without esophagitis; M41.9 Scoliosis, unspecified; E03.9 Hypothyroidism, unspecified; F32.9 Major depressive disorder, single episode, unspecified; Z87.19 Personal history of other diseases of the digestive system; Z88.2 Allergy status to sulfonamides; Z88.8 Allergy status to other drugs, medicaments and biological substances; Z88.1 Allergy status to other antibiotic agents; Z98.890 Other specified postprocedural states; Z90.49 Acquired absence of other specified parts of digestive tract; Z90.89 Acquired absence of other organs; Z90.710 Acquired absence of both cervix and uterus; Z87.891 Personal history of nicotine dependence
CPT/HCPCS: 36415; 74176; 80053; 80306; 81000; 83690; 84703; 85025; 96361; 96374; 96375; 96376

== ENCOUNTER 2018-11-28 14:10 | Emergency (ER) | payer MEDICAID ==
[~2018-11-28] VITALS: Ht 170.2 cm; Wt 136.1 kg
[~2018-11-28 14:10] MED LIST changes: +HYDR-3812 PO
[2018-11-28] MEDS ORDERED: morphine INJ 10 MG/ML 1ML (SYR OR VIAL) IVP STA (14:32)
[2018-11-28] MEDS ORDERED: NS IV 1000 ML 1,000 ML IV SCH (14:32)
--- NOTE | 2018-11-28 14:41 | ED Abdominal Pain ---
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 She is also status post cholecystectomy, appendectomy and total hysterectomy in the past. The patient presents with concern for acute on chronic abdominal discomfort to the right lower quadrant of her abdomen which has been present for the last 1-2 days. Pain is sharp and constant and nothing seems to make it better or worse. It is nonradiating. She denies associated fevers, vomiting, hematemesis, hematochezia, melena, cough, shortness of breath or chest pain, flank pain, new or worsening back pain, dysuria or hematuria. She notes that she has been passing gas and having bowel movements although did have a hard stool 2 days ago with some mild rectal discomfort since that time. No therapy other than a dose for home muscle relaxant prior to arrival. I did once again readdressed with the patient that it is of critical importance that she follow-up closely with her surgeon and she states that she is seeking follow up with a hernia specialist at [facility] which I encouraged. I said expectations that we would ensure the patient was safe and try to control her discomfort but that we were unlikely to resolve her chronic abdominal pain today. She understood and agreed. Allergies and Home Medications Allergies Coded Allergies: Sulfa (Sulfonamide Antibiotics) (Verified Allergy, Unknown, 06/27/18) hydroxyzine (Verified Allergy, Unknown, 06/27/18) prochlorperazine (Verified Allergy, Unknown, 12/20/16) tetracycline (Verified Allergy, Unknown, 06/27/18) Home Medications Cyclobenzaprine HCl 10 Mg Tablet, 10 MG PO BID PRN for PRN, (Reported) Furosemide 40 Mg Tablet, 40 MG PO DAILY, (Reported) Gabapentin 300 Mg Capsule, 300 MG PO PRN, (Reported) Hydrocodone/Acetaminophen 1 Each Tablet, 1 TAB PO Q4-6HR Prescribed by: ELEN POLLACK on 11/23/18 0150 Levothyroxine Sodium 50 Mcg Tablet, 50 MCG PO DAILY, (Reported) Meloxicam 15 Mg Tablet, 15 MG PO DAILY, (Reported) Ondansetron HCl 8 Mg Tablet, 8 MG PO Q6H PRN for NAUSEA/VOMITING-1ST LINE Prescribed by: LEONIDES ALFARO on 08/29/18 1605 Oxycodone HCl/Acetaminophen 1 Each Tablet, 1 TAB PO Q6H PRN for ABDOMINAL PAIN Prescribed by: LEONIDES ALFARO on 08/29/18 1605 Venlafaxine HCl 75 Mg Tab, 75 MG PO BID, (Reported) Patient Home Medication List Home Medication List Reviewed: Yes Review of Systems Review of Systems Constitutional: see HPI All Other Systems Reviewed Negative Unless Noted: Yes Past Yabhuap-Gdtuda-Hmxxvd Hx Past Med/Social Hx: Reviewed Nursing Past Med/Soc Hx Patient Social History Alcohol Use: Denies Use Recreational Drug Use: No Smoking Status: Former Smoker Type Used: Cigarettes Former Smoker, Quit: Jun 15, 1996 2nd Hand Smoke Exposure: No Recent Hopitalizations: No Physical Abuse: No Sexual Abuse: No Mistreated: No Fear: No Immunizations Up To Date Tetanus Booster (TDap): Less than 5yrs PED Vaccines UTD: Yes Date of Pneumonia Vaccine: Apr 18, 2013 Date of Influenza Vaccine: Apr 18, 2018 Seasonal Allergies Seasonal Allergies: No Past Medical History Surgeries: Yes (HERNIA X3) Abdominal, Appendectomy, Gallbladder, Hysterectomy Respiratory: No Asthma Currently Using CPAP: No Currently Using BIPAP: No Cardiac: No Chronic Edema/Swelling Neurological: No 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 History: Hysterectomy Genitourinary: No Gastrointestinal: Yes Abdominal Hernia, Gastroesophageal Reflux, Gall Bladder Disease Musculoskeletal: Yes (scoliosis, knee pain back pain) Chronic Back Pain Endocrine: Yes Hypothyroidsim HEENT: No Cancer: No Psychosocial: Yes Depression Integumentary: No Blood Disorders: No Adverse Reaction/Blood Tranf: No Family Medical History Reviewed Nursing Family Hx Physical Exam Vital Signs Vital Signs - First Documented 11/28/18 14:15 Temp 98.1 Pulse 78 Resp 22 B/P (MAP) 178/82 (114) Pulse Ox 96 O2 Delivery Room Air Capillary Refill : Height/Weight/BMI Height: 5'7.00" Weight: 300lbs. 0.0oz. 136.748295sf; 48.6 BMI Method:Stated General Appearance: no apparent distress Exam Comments This is an obese older female appearing nontoxic and in no acute distress. Head is normocephalic and atraumatic. Neck is supple and nontender. Oropharynx is moist. Lungs are clear to auscultation at all stations. There is a normal S1 and S2 without rubs or gallops and capillary refill is appropriate, less 2 seconds globally. Abdomen is soft and nondistended and with mild right lower quadrant tenderness to palpation without rebound or guarding. There is a well-healed vertical midline laparotomy incision without dehiscence or other acute abnormality noted. Skin is warm and dry without cyanosis, clubbing or edema. Psychiatrically, patient demonstrates appropriate mood and affect and is alert. Progress/Results/Core Measures Results/Orders Lab Results Laboratory Tests Test 11/28/18 14:17 11/28/18 15:10 Range/Units Urine Color YELLOW Urine Clarity CLEAR Urine pH 7.0 5-9 Urine Specific [place] 1.015 L 1.016-1.022 Urine Protein 1+ H NEGATIVE Urine Glucose (UA) NEGATIVE NEGATIVE Urine Ketones NEGATIVE NEGATIVE Urine Nitrite NEGATIVE NEGATIVE Urine Bilirubin NEGATIVE NEGATIVE Urine Urobilinogen 0.2 NORMAL MG/DL Urine Leukocyte Esterase NEGATIVE NEGATIVE Urine RBC (Auto) 2+ H NEGATIVE Urine RBC 10-25 H /HPF Urine WBC NONE /HPF Urine Squamous Epithelial Cells 5-10 /HPF Urine Crystals NONE /LPF Urine Bacteria FEW H /HPF Urine Casts NONE /LPF Urine Mucus NEGATIVE /LPF Urine Culture Indicated NO White Blood Count 5.7 4.3-11.0 10^3/uL Red Blood Count 4.05 L 4.35-5.85 10^6/uL Hemoglobin 12.9 11.5-16.0 G/DL Hematocrit 38 35-52 % Mean Corpuscular Volume 95 80-99 FL Mean Corpuscular Hemoglobin 32 25-34 PG Mean Corpuscular Hemoglobin Concent 34 32-36 G/DL Red Cell Distribution Width 12.8 10.0-14.5 % Platelet Count 121 L 130-400 10^3/uL Mean Platelet Volume 10.8 H 7.4-10.4 FL Neutrophils (%) (Auto) 55 42-75 % Lymphocytes (%) (Auto) 34 12-44 % Monocytes (%) (Auto) 8 0-12 % Eosinophils (%) (Auto) 2 0-10 % Basophils (%) (Auto) 0 0-10 % Neutrophils # (Auto) 3.1 1.8-7.8 X 10^3 Lymphocytes # (Auto) 2.0 1.0-4.0 X 10^3 Monocytes # (Auto) 0.5 0.0-1.0 X 10^3 Eosinophils # (Auto) 0.1 0.0-0.3 10^3/uL Basophils # (Auto) 0.0 0.0-0.1 10^3/uL Sodium Level 143 135-145 MMOL/L Potassium Level 4.3 3.6-5.0 MMOL/L Chloride Level 101 98-107 MMOL/L Carbon Dioxide Level 34 H 21-32 MMOL/L Anion Gap 8 5-14 MMOL/L Blood Urea Nitrogen 15 7-18 MG/DL Creatinine 1.19 0.60-1.30 MG/DL Estimat Glomerular Filtration Rate 48 BUN/Creatinine Ratio 13 Glucose Level 164 H 70-105 MG/DL Calcium Level 9.2 8.5-10.1 MG/DL Corrected Calcium 9.4 8.5-10.1 MG/DL Total Bilirubin 0.2 0.1-1.0 MG/DL Aspartate Amino Transf (AST/SGOT) 21 5-34 U/L Alanine Aminotransferase (ALT/SGPT) 30 0-55 U/L Alkaline Phosphatase 95 40-136 U/L Total Protein 6.2 L 6.4-8.2 GM/DL Albumin 3.7 3.2-4.5 GM/DL Lipase 38 8-78 U/L My Orders Orders - VEGA BAUGH MD Cbc With Automated Diff (11/28/18 14:32) Comprehensive Metabolic Panel (11/28/18 14:32) Lipase (11/28/18 14:32) Ua Culture If Indicated (11/28/18 14:32) Ed Iv/Invasive Line Start (11/28/18 14:32) Acute Abd Series (11/28/18 14:32) Morphine Injection (Morphine Injection (11/28/18 14:32) Ondansetron Injection (Zofran Injectio (11/28/18 14:45) Dicyclomine Injection (Bentyl Injection) (11/28/18 14:45) Ns Iv 1000 Ml (Sodium Chloride 0.9%) (11/28/18 14:32) Oxycodone/Apap 5/325mg Tablet (Percocet (11/28/18 16:30) Ketorolac Injection (Toradol Injection) (11/28/18 16:30) Medications Given in ED Current Medications Medications Dose Ordered Sig/Ashley Route Start Time Stop Time Status Last Admin Dose Admin Dicyclomine HCl 20 mg ONCE PRN IM 11/28/18 14:45 11/28/18 15:18 20 MG Ketorolac Tromethamine 30 mg ONCE ONCE IVP 11/28/18 16:30 11/28/18 16:31 DC 11/28/18 16:33 30 MG Ondansetron HCl 4 mg ONCE ONCE IVP 11/28/18 14:45 11/28/18 14:46 DC 11/28/18 15:18 4 MG Oxycodone/ Acetaminophen 2 tab ONCE ONCE PO 11/28/18 16:30 11/28/18 16:31 DC 11/28/18 16:33 2 TAB Vital Signs/I&O 11/28/18 14:15 Temp 98.1 Pulse 78 Resp 22 B/P (MAP) 178/82 (114) Pulse Ox 96 O2 Delivery Room Air Progress Progress Note : Time: 14:41 Progress Note Clinical examination reassuring. Nontoxicappearing patient with generally appropriate vital sign to presents with acute on chronic abdominal pain. Patient states localization of pain is slightly different than usual as it is down fu rther on the right side of her abdomen than usual. Nevertheless, she was CT scanned here just 3 days ago and that scan was without evidence of acute process aside from findings consistent with likely reaccumulation of her chronic post incisional seroma. Today we will check labs and give IV fluids and medication for symptomatic management as per nursing flow sheet and will check an acute abdominal series. If workup is reassuring and pain is controlled, we will defer repeat CT scan and plan discharged to follow up closely with primary care and with the patient's ophthalmic surgical assistant. She understands and agrees with the plan of care. Update: Workup is negative and the patient is feeling somewhat better after medication here in the emergency department. She is continuing to have some discomfort. I did discuss with her the option of an admission for pain control and attention to the general surgeon but she would prefer to follow up closely in the clinic as she does have an orthopedic surgery appointment tomorrow m orning that she does not want to miss. Case is therefore discussed with Dr. Ferguson of Gen. surgery at [facility] who agrees that the patient may be worked into the clinic schedule in the next few days to week and she is to call the clinic tomorrow morning to get scheduled. She understands that in the meantime she should return immediately if symptoms worsen or if other symptoms of concern develop. HIS are answered. The patient is comfortable with the discharge plan. We will proceed with discharge home at this time. Diagnostic Imaging Diagonstic Imaging: Xray Comments ACUTE ABD SERIES INDICATION: Abdominal pain worse on the right. TIME OF EXAM: 03:23 p.m. FINDINGS: The lungs are clear. No free air is identified. There are surgical clips in the gallbladder fossa. Bowel gas pattern appears nonobstructive. Abdominal mesh material is seen. There are no pathologic calcifications. IMPRESSION: No acute feature detected. Departure Impression Primary Impression: Chronic abdominal pain Disposition: HOME, SELF-CARE Condition: Improved Departure-Patient Inst. Referrals: CONRADO LILLY MD (PCP/Family) Primary Care Physician Patient Instructions: Chronic Pain Add. Discharge Instructions: Please call the general surgery clinic at [facility] at [phone] tomorrow to make a close follow-up appointment with Dr. Ferguson who would like to see you in the clinic within the next week. Please tell the clinical analyst that Dr. Ferguson would like you scheduled for a work-in appointment within the next few days if possible. In the meantime, use the pain medication as discussed for symptoms and return immediately if symptoms worsen or if other new symptoms of concern develop. Scripts Dicyclomine HCl (Dicyclomine HCl) 10 Mg Capsule 10 MG PO Q6H for abd pain/spasm, #14 CAP Prov: VEGA BAUGH MD 11/28/18 Oxycodone HCl/Acetaminophen (Percocet 5-325 mg Tablet) 1 Each Tablet 1 TAB PO Q4H for PAIN-MODERATE MDD 6 TABS for 7 Days, #14 TAB Prov: VEGA BAUGH MD 11/28/18 VEGA BAUGH MD Nov 28, 2018 14:41
[2018-11-28] MEDS ORDERED: ONDANSETRON 4 MG/2 ML (SDV) Z0FRAN IVP ONE (14:45)
[2018-11-28] MEDS ORDERED: DICYCLOMINE 10 MG/ML (BENTYL) 2 ML AMP IM PRN (14:45)
[2018-11-28 15:23] LABS: HEMATOCRIT 38 % (35-52); HEMOGLOBIN 12.9 G/DL (11.5-16.0); MEAN CORPUSCULAR HEMOGLOBIN 32 PG (25-34); MEAN CORPUSCULAR VOLUME 95 FL (80-99); PLATELET COUNT 121 10^3/uL (130-400); RED CELL DISTRIBUTION WIDTH 12.8 % (10.0-14.5); WHITE BLOOD COUNT 5.7 10^3/uL (4.3-11.0)
[2018-11-28 15:24] LABS: BASOPHILS % (AUTO) 0 % (0-10); EOSINOPHILS # (AUTO) 0.1 10^3/uL (0.0-0.3); EOSINOPHILS % (AUTO) 2 % (0-10); LYMPHOCYTES % (AUTO) 34 % (12-44); MEAN CORPUSCULAR HGB CONC 34 G/DL (32-36); MEAN PLATELET VOLUME 10.8 FL (7.4-10.4); MONOCYTES # (AUTO) 0.5 X 10^3 (0.0-1.0); MONOCYTES % (AUTO) 8 % (0-12); NEUTROPHILS # (AUTO) 3.1 X 10^3 (1.8-7.8); NEUTROPHILS % (AUTO) 55 % (42-75)
[2018-11-28 15:39] LABS: CREATININE SERUM 1.19 MG/DL (0.60-1.30); POTASSIUM 4.3 MMOL/L (3.6-5.0)
[2018-11-28 15:40] LABS: ALBUMIN 3.7 GM/DL (3.2-4.5); BILIRUBIN,TOTAL 0.2 MG/DL (0.1-1.0); CALCIUM 9.2 MG/DL (8.5-10.1); TOTAL PROTEIN 6.2 GM/DL (6.4-8.2)
[2018-11-28 15:41] LABS: CLARITY,URINE CLEAR; COLOR,URINE YELLOW; GLUCOSE, URINE (UA) NEGATIVE (NEGATIVE); PROTEIN,URINE 1+ (NEGATIVE)
[2018-11-28] MEDS ORDERED: TRAZ150T72 (15:41)
[2018-11-28 15:42] LABS: BACTERIA,URINE FEW /HPF; BILIRUBIN,URINE NEGATIVE (NEGATIVE); KETONES,URINE NEGATIVE (NEGATIVE); LEUKOCYTE ESTERASE ,URINE NEGATIVE (NEGATIVE); NITRITE,URINE NEGATIVE (NEGATIVE); UROBILINOGEN,URINE 0.2 MG/DL (NORMAL)
--- NOTE | 2018-11-28 16:05 | Diagnostic Imaging Report ---
INDICATION: Abdominal pain worse on the right. TIME OF EXAM: 03:23 p.m. FINDINGS: The lungs are clear. No free air is identified. There are surgical clips in the gallbladder fossa. Bowel gas pattern appears nonobstructive. Abdominal mesh material is seen. There are no pathologic calcifications. IMPRESSION: No acute feature detected. Dictated by: Dictated on workstation # [id number]
[2018-11-28] MEDS ORDERED: KETOROLAC 30 MG/ML VIAL IVP ONE (16:30)
[2018-11-28] MEDS ORDERED: oxyCODONE/APAP 5/325MG (PERCOCET 5) TABLET PO ONE (16:30)
[2018-11-28] MEDS ORDERED: DICY10CA12 PO (17:11)
[2018-11-28] MEDS ORDERED: OXYC1TAB87 PO (17:11)
[2018-11-28 17:24] VITALS: BP 159/73
--- OUTSIDE RECORDS SUMMARY | 2018-11-28 22:18 | XMS REPORT | Clinical Summary ---
Author Author [facility] Organization [facility] Address Unknown Phone Unavailable Care Team Providers Care Pack Press Operator Name Role Phone Gemini Herring MD PCP Source Comments Some departments are not documenting in the electronic medical record. If you d o not see the information that you expected, contact Release of Information in [email or web address] Information Management department at [phone] for further assistan ce in locating additional records.[facility] Allergies Comments Active Allergy Reactions Severity [...] Taken Vital Sign Reading 07/30/2017 1:00 AM PATIENT ADMITTING CLERK Blood Pressure 160/71 07/29/2017 7:25 PM PATIENT ADMITTING CLERK Pulse 73 07/29/2017 5:45 PM PATIENT ADMITTING CLERK Temperature 36.9 C (98.4 F) - Respiratory Rate - 07/30/2017 12:58 AM PATIENT ADMITTING CLERK Oxygen Saturation 98% - Inhaled Oxygen - Concentration 07/29/2017 11:52 AM PATIENT ADMITTING CLERK Weight 127 kg (280 lb) 07/29/2017 11:52 AM PATIENT ADMITTING CLERK Height 170.2 cm (5' 7") 07/29/2017 11:52 AM PATIENT ADMITTING CLERK Body Mass Index 43.85 Plan of Treatment [...] file. For more i nformation, please contact: [facility] [address] [place] [address] Date Inactivated Comments Code Status Date Activated 12/25/2016 7:37 PM Full Code 12/23/2016 2:04 AM Provider has discussed Code Status Yes w/Patient or Family? 12/02/2016 2:44 PM Full Code 11/29/2016 5:17 AM Provider has discussed Code Status Yes w/Patient or Family?
--- OUTSIDE RECORDS SUMMARY | 2018-11-28 22:35 | XMS REPORT | Continuity of Care Document ---
Author Organization Unknown Address Unknown Allergies Active Description Code Type Severity Reaction Onset Reported/Identified Relationship to Patient Clinical Status Yes Compazine Drug N/A Agitation Yes hydrOXYzine Drug N/A Agitation Yes sulfa drugs Drug N/A N Yes Sulfa (Sulfonamide Antibiotics) Drug Allergy N/A N/A 04/03/2014 Yes Tetracyclines Drug Allergy N/A N/A 04/03/2014 Yes No Known Drug Allergies [id number] Drug Allergy Unknown N/A 12/20/2016 Yes prochlorperazine [id number] Drug Allergy Unknown N/A 12/20/2016 Yes hydroxyzine [id number] Drug Allergy Unknown N/A 06/27/2018 Yes Sulfa (Sulfonamide Antibiotics) [id number] Drug Allergy Unknown N/A 06/27/2018 Yes tetracycline [id number] Drug Allergy Unknown N/A 06/27/2018 Medications Medication [...] PT LV BEF SEE 12/20/2016 JEANNETTE BELLO RETAIL TEAM LEADER Ot R11.2 NAUSEA WITH VOMITING, UNSPECIFIED 12/20/2016 JEANNETTE BELLO RETAIL TEAM LEADER Ot R19.7 DIARRHEA, UNSPECIFIED 12/20/2016 JEANNETTE BELLO RETAIL TEAM LEADER Ot R25.2 CRAMP AND SPASM 12/22/2016 JEANNETTE BELLO RETAIL TEAM LEADER Ot R11.2 NAUSEA WITH VOMITING, UNSPECIFIED 12/22/2016 JEANNETTE BELLO RETAIL TEAM LEADER Ot R19.7 DIARRHEA, UNSPECIFIED 12/22/2016 JEANNETTE BELLO RETAIL TEAM LEADER Ot R25.2 CRAMP AND SPASM 12/22/2016 JEANNETTE BELLO RETAIL TEAM LEADER Ot R11.2 NAUSEA WITH VOMITING, UNSPECIFIED 12/22/2016 JEANNETTE BELLO RETAIL TEAM LEADER Ot R19.7 DIARRHEA, UNSPECIFIED 12/22/2016 JEANNETTE BELLO RETAIL TEAM LEADER Ot R25.2 CRAMP AND SPASM 07/13/2017 Kacey [...] ALLERGY STATUS TO OTHER ANTIBIOTIC AGENT 06/27/2018 SLOEDAD RAMIREZIS Ot Z88.2 ALLERGY STATUS TO SULFONAMIDES STATUS 06/27/2018 SOLEDAD RAMIREZIS Ot Z88.8 ALLERGY STATUS TO OTH DRUG/MEDS/BIOL SUB 06/27/2018 SOLEDAD RAMIREZIS Ot Z90.49 ACQUIRED ABSENCE OF OTHER SPECIFIED PART 06/27/2018 JAMES EDDI Ot Z90.710 ACQUIRED ABSENCE OF BOTH CERVIX AND UTER 06/27/2018 JAMES EDDI Ot Z90.89 ACQUIRED ABSENCE OF OTHER ORGANS 06/30/2018 SOLEADD RAMIREZIS Ot E03.9 HYPOTHYROIDISM, UNSPECIFIED 06/30/2018 JAMES [...] ENCOUNTER FOR DISABILITY DETERMINATION 07/18/2018 ECTOR D RETAIL TEAM LEADER Ot R10.31 RIGHT LOWER QUADRANT PAIN 07/18/2018 ECTOR GR RETAIL TEAM LEADER Ot Z90.49 ACQUIRED ABSENCE OF OTHER SPECIFIED PART 07/18/2018 SIMÓNECTOR RETAIL TEAM LEADER Ot Z98.890 OTHER SPECIFIED POSTPROCEDURAL STATES 07/19/2018 [...] FACC, ALI FACP CCDS Ot Z79.899 OTHER PENITENTIARY (CURRENT) DRUG THERAPY 07/22/2018 LUCIA IGNACIO FACC, [...] 45.0-49.9, ADULT 07/22/2018 LUCIA IGNACIO FAC, NICHELLE [facility] CCDS Ot Z79.899 OTHER PENITENTIARY (CURRENT) DRUG THERAPY 08/05/2018 ARMANDO IGNACIO, ARIES Anlgin (DDU) Ot Z02.71 ENCOUNTER FOR DISABILITY DETERMINATION 08/05/2018 ECTOR GR Yann RETAIL TEAM LEADER Ot R10.31 RIGHT LOWER QUADRANT PAIN 08/05/2018 SIMÓN ECTOR D RETAIL TEAM LEADER Ot Z90.49 ACQUIRED ABSENCE OF OTHER SPECIFIED PART 08/05/2018 JACKIE GRCELINE Lerner RETAIL TEAM LEADER Ot Z98.890 OTHER SPECIFIED POSTPROCEDURAL STATES 08/08/2018 WIGGINSRICHA KANG RETAIL TEAM LEADER Ot M79.89 OTHER SPECIFIED SOFT TISSUE DISORDERS 08/08/2018 WIGGINSRICHA KANG RETAIL TEAM LEADER Ot R60.0 LOCALIZED EDEMA 08/18/2018 WIGGINSRICHA RETAIL TEAM LEADER Ot M79.89 OTHER SPECIFIED SOFT TISSUE DISORDERS 08/18/2018 WIGGINSRICHA KANG RETAIL TEAM LEADER Ot R60.0 LOCALIZED EDEMA 08/29/2018 LEONIDES ALFARO [...] YUMIKO Ot F41.9 ANXIETY DISORDER, UNSPECIFIED 09/05/2018 BRANFORD DO, YUMIKO Ot J45.909 UNSPECIFIED ASTHMA, UNCOMPLICATED [...] Ot Z90.89 ACQUIRED ABSENCE OF OTHER ORGANS 11/03/2018 LYLA LANGE MD Ot E03.9 HYPOTHYROIDISM, UNSPECIFIED 11/03/2018 LYLA LANGE MD Ot F32.9 MAJOR DEPRESSIVE DISORDER, SINGLE EPISOD 11/03/2018 LYLA LANGE MD Ot F41.9 ANXIETY DISORDER, UNSPECIFIED 11/03/2018 LYLA LANGE MD Ot J45.909 UNSPECIFIED ASTHMA, UNCOMPLICATED 11/03/2018 LYLA LANGE MD Ot K21.9 GASTRO-ESOPHAGEAL REFLUX DISEASE WITHOUT 11/03/2018 LYLA LANGE MD Ot R00.2 PALPITATIONS 11/03/2018 LYLA LANGE MD Ot R07.9 CHEST PAIN, UNSPECIFIED 11/03/2018 LYLA LANGE MD Ot R42 DIZZINESS AND GIDDINESS 11/03/2018 LYLA LANGE MD Ot R55 SYNCOPE AND COLLAPSE 11/03/2018 LYLA LANGE MD Ot Z87.891 PERSONAL HISTORY OF NICOTINE DEPENDENCE 11/03/2018 LYLA LANGE MD Ot Z88.1 ALLERGY STATUS TO OTHER ANTIBIOTIC AGENT 11/03/2018 LYLA LANGE MD Ot Z88.2 ALLERGY STATUS TO SULFONAMIDES STATUS 11/03/2018 LYLA LANGE MD Ot Z88.8 ALLERGY STATUS TO OTH DRUG/MEDS/BIOL SUB 11/03/2018 LYLA LANGE MD Ot Z90.49 ACQUIRED ABSENCE OF OTHER SPECIFIED PART 11/03/2018 ANISA IGNACIO, LYLA Murphy Ot Z90.710 ACQUIRED ABSENCE OF BOTH CERVIX AND UTER 11/03/2018 ANISA IGNACIO, LYLA Murphy Ot Z90.89 ACQUIRED ABSENCE OF OTHER ORGANS 11/08/2018 KEATON LACY YUMIKO Ot E03.9 HYPOTHYROIDISM, UNSPECIFIED 11/08/2018 PUGH DO, YUMIKO Ot F32.9 MAJOR DEPRESSIVE DISORDER, SINGLE EPISOD 11/08/2018 KEATON LACY, YUMIKO Ot J45.909 UNSPECIFIED ASTHMA, UNCOMPLICATED 11/08/2018 PUGH DO, YUMIKO Ot K21.9 GASTRO- ESOPHAGEAL REFLUX DISEASE WITHOUT 11/08/2018 PUGH DO, YUMIKO Ot M41.9 SCOLIOSIS, UNSPECIFIED 11/08/2018 KEATON LACY YUMIKO Ot R10.33 PERIUMBILICAL PAIN 11/08/2018 KEATON LACY YUMIKO Ot Z87.19 PERSONAL HISTORY OF OTHER DISEASES OF TH 11/08/2018 YUMIKO PUGH DO Ot Z87.891 PERSONAL HISTORY OF NICOTINE DEPENDENCE 11/08/2018 YUMIKO PUGH DO Ot Z88.1 ALLERGY STATUS TO OTHER ANTIBIOTIC AGENT 11/08/2018 KEATON LACY YUMIKO Ot Z88.2 ALLERGY STATUS TO SULFONAMIDES STATUS 11/08/2018 KEATON LACY, YUMIKO Ot Z88.8 ALLERGY STATUS TO OTH DRUG/MEDS/BIOL SUB 11/08/2018 KEATON LACY YUMIKO Ot Z90.49 ACQUIRED ABSENCE OF OTHER SPECIFIED PART 11/08/2018 KEATON LACY YUMIKO Ot Z90.710 ACQUIRED ABSENCE OF BOTH CERVIX AND UTER 11/08/2018 KEATON LACY, YUMIKO Ot Z98.890 OTHER SPECIFIED POSTPROCEDURAL STATES 11/10/2018 SIMÓN, ECTOR D RETAIL TEAM LEADER Ot R10.31 RIGHT LOWER QUADRANT PAIN 11/10/2018 SIMÓN, ECTOR D RETAIL TEAM LEADER Ot Z90.49 ACQUIRED ABSENCE OF OTHER SPECIFIED PART 11/10/2018 SIMÓN, ECTOR D RETAIL TEAM LEADER Ot Z98.890 OTHER SPECIFIED POSTPROCEDURAL STATES 11/14/2018 KEATON LACY, YUMIKO Ot E03.9 HYPOTHYROIDISM, UNSPECIFIED 11/14/2018 KEATON DO, YUMIKO Ot F32.9 MAJOR DEPRESSIVE DISORDER, SINGLE EPISOD 11/14/2018 KEATON DO, YUMIKO Ot J45.909 UNSPECIFIED ASTHMA, UNCOMPLICATED 11/14/2018 KEATON LACY, YUMIKO Ot K21.9 GASTRO- ESOPHAGEAL REFLUX DISEASE WITHOUT 11/14/2018 KEATON DO, YUMIKO Ot M41.9 SCOLIOSIS, UNSPECIFIED 11/14/2018 KEATON LACYYUMIKO Ot R10.33 PERIUMBILICAL PAIN 11/14/2018 PUGH YUMIKO Ot Z87.19 PERSONAL HISTORY OF OTHER DISEASES OF TH 11/14/2018 KEATON LACYYUMIKO Ot Z87.891 PERSONAL HISTORY OF NICOTINE DEPENDENCE 11/14/2018 KEATON LACYYUMIKO Ot Z88.1 ALLERGY STATUS TO OTHER ANTIBIOTIC AGENT 11/14/2018 YUMIKO PUGH DO, Ot Z88.2 ALLERGY STATUS TO SULFONAMIDES STATUS 11/14/2018 PUGH YUMIKO Ot Z88.8 ALLERGY STATUS TO OTH DRUG/MEDS/BIOL SUB 11/14/2018 PUGH YUMIKO Ot Z90.49 ACQUIRED ABSENCE OF OTHER SPECIFIED PART 11/14/2018 YUMIKO PUGH DO, Ot Z90.710 ACQUIRED ABSENCE OF BOTH CERVIX AND UTER 11/14/2018 PUGH YUMIKO Ot Z98.890 OTHER SPECIFIED POSTPROCEDURAL STATES Procedures Code Description [place] [address] ROUTINE VENIPUNCTURE 04/06/2014 24390 CBC 04/06/2014 83988 MAMMOGRAM, SCREENING 04/24/2014 79180 PAP SMEAR 04/24/2014 Q0091 PAP SMEAR OBTAIN SMEAR 04/24/2014 39641 ROUTINE VENIPUNCTURE 10/12/2014 03035 US LIVER ULTRASOUND 10/12/2014 47947 CMP 10/12/2014 59205 MAGNESIUM 10/12/2014 20146 TSH 10/12/2014 97698 CBC 10/12/2014 29143 Intravenous infusion, hydration; each ad GISELA RANDOLPH 07/12/2017 52904 Therapeutic, prophylactic, or diagnostic GISELA RANDOLPH 07/12/2017 88114 Therapeutic, prophylactic, or diagnostic GISELA RANDOLPH 07/12/2017 58033 Therapeutic, prophylactic, or diagnostic GISELA RANDOLPH 07/12/2017 32721 Emergency department visit for the evalu GISELA [...] NEG Ketones, UA NEGATIVE mg/dL NEG Specific [place], UA 1.024 1.003-1.030 Blood, UA MODERATE NEG [...] INFLUENZA A AND B ANTIGENS BY [facility] Automated blood complete blood count (hemogram) panel [...] - 11/08/18 13:00 Lipase 38 U/L 8-78 Complete blood count (CBC) with automated white blood cell (WBC) differential - 11/22/18 22:55 Blood leukocytes automated count (number/volume) 6.4 10*3/uL 4.3-11.0 Blood erythrocytes automated count (number/volume) 4.20 10*6/uL 4.35-5.85 Venous blood hemoglobin measurement (mass/volume) 13.4 g/dL 11.5-16.0 Blood hematocrit (volume fraction) 40 % 35-52 Automated erythrocyte mean corpuscular volume 94 [foz_us] 80-99 Automated erythrocyte mean corpuscular hemoglobin (mass per erythrocyte) 32 pg 25-34 Automated erythrocyte mean corpuscular hemoglobin concentration measurement (mass/volume) 34 g/dL 32-36 Automated erythrocyte distribution width ratio 12.8 % 10.0- 14.5 Automated blood platelet count (count/volume) 133 10*3/uL 130-400 Automated blood platelet mean volume measurement 10.6 [foz_us] 7.4-10.4 Automated blood neutrophils/100 leukocytes 50 % 42-75 Automated blood lymphocytes/100 leukocytes 39 % 12-44 Blood monocytes/100 leukocytes 9 % 0-12 Automated blood eosinophils/100 leukocytes 2 % 0-10 Automated blood basophils/100 leukocytes 0 % 0-10 Blood neutrophils automated count (number/volume) 3.2 10*3 1.8-7.8 Blood lymphocytes automated count (number/volume) 2.5 10*3 1.0-4.0 Blood monocytes automated count (number/volume) 0.6 10*3 0.0- 1.0 Automated eosinophil count 0.1 10*3/uL 0.0-0.3 Automated blood basophil count (count/volume) 0.0 10*3/uL 0.0-0.1 Comprehensive metabolic panel - 11/22/18 22:55 Serum or plasma sodium measurement (moles/volume) 141 mmol/L 135-145 Serum or plasma potassium measurement (moles/volume) 4.4 mmol/L 3.6-5.0 Serum or plasma chloride measurement (moles/volume) 102 mmol/L 98-107 Carbon dioxide 25 mmol/L 21-32 Serum or plasma anion gap determination (moles/volume) 14 mmol/L 5-14 Serum or plasma urea nitrogen measurement (mass/volume) 14 mg/dL 7-18 Serum or plasma creatinine measurement (mass/volume) 1.10 mg/dL 0.60-1.30 Serum or plasma urea nitrogen/creatinine mass ratio 13 NRG Serum or plasma creatinine measurement with calculation of estimated glomerular filtration rate 53 NRG Serum or plasma glucose measurement (mass/volume) 112 mg/dL 70-105 Serum or plasma calcium measurement (mass/volume) 8.8 mg/dL 8.5-10.1 Serum or plasma total bilirubin measurement (mass/volume) 0.3 mg/dL 0.1-1.0 Serum or plasma alkaline phosphatase measurement (enzymatic activity/volume) 94 U/L 40-136 Serum or plasma aspartate aminotransferase measurement (enzymatic activity/volume) 22 U/L 5-34 Serum or plasma alanine aminotransferase measurement (enzymatic activity/volume) 28 U/L 0-55 Serum or plasma protein measurement (mass/volume) 6.5 g/dL 6.4-8.2 Serum or plasma albumin measurement (mass/volume) 3.8 g/dL 3.2-4.5 CALCIUM CORRECTED 9.0 mg/dL 8.5-10.1 Lipase - 11/22/18 22:55 Lipase 42 U/L 8-78 Urine beta human chorionic gonadotropin (hCG) measurement - 11/22/18 23:30 Urine beta human chorionic gonadotropin (hCG) measurement NEGATIVE NEGATIVE Urine drug screening test - 11/22/18 23:30 Urine phencyclidine detection by screening method NEGATIVE NEGATIVE Urine benzodiazepines detection by screening method NEGATIVE NEGATIVE Urine cocaine detection NEGATIVE NEGATIVE Urine amphetamines detection by screening method NEGATIVE NEGATIVE Urine methamphetamine detection by screening method NEGATIVE NEGATIVE Urine cannabinoids detection by screening method NEGATIVE NEGATIVE Urine opiates detection by screening method NEGATIVE NEGATIVE Urine barbiturates detection NEGATIVE NEGATIVE Screening urine tricyclic antidepressants detection NEGATIVE NEGATIVE Urine methadone detection by screening method NEGATIVE NEGATIVE Urine oxycodone detection NEGATIVE NEGATIVE Urine propoxyphene detection NEGATIVE NEGATIVE Complete urinalysis with reflex to culture - 11/22/18 23:30 Urine color determination YELLOW NRG Urine clarity determination SLT CLOUDY NRG Urine pH measurement by test strip 6.0 5-9 Specific gravity of urine by test strip 1.020 1.016-1.022 Urine protein assay by test strip, semi-quantitative 1+ NEGATIVE Urine glucose detection by automated test [...] detection in urine sediment by light microscopy MODERATE NRG Squamous epithelial cells detection in urine sediment by light microscopy 2-5 NRG Crystals detection in urine sediment by light microscopy NONE NRG Casts detection in urine sediment by light microscopy NONE NRG Mucus detection in urine sediment by light microscopy NONE NRG Complete urinalysis with reflex to culture NO NRG Complete urinalysis with reflex to culture - 11/28/18 14:17 Urine color determination YELLOW NRG Urine clarity determination CLEAR NRG Urine pH measurement by test strip 7.0 5-9 Specific gravity of urine by test strip 1.015 1.016-1.022 Urine protein assay by test strip, semi-quantitative 1+ NEGATIVE Urine glucose detection by automated test strip NEGATIVE NEGATIVE Erythrocytes detection in urine sediment by light microscopy 2+ NEGATIVE Urine ketones detection by automated test [...] detection in urine sediment by light microscopy 5-10 NRG Crystals detection in urine sediment by light microscopy NONE NRG Casts detection in urine sediment by light microscopy NONE NRG Mucus detection in urine sediment by light microscopy NEGATIVE NRG Complete urinalysis with reflex to culture NO NRG Complete blood count (CBC) with automated white blood cell (WBC) differential - 11/28/18 15:10 Blood leukocytes automated count (number/volume) 5.7 10*3/uL 4.3-11.0 Blood erythrocytes automated count (number/volume) 4.05 10*6/uL 4.35-5.85 Venous blood hemoglobin measurement (mass/volume) 12.9 g/dL 11.5-16.0 Blood hematocrit (volume fraction) 38 % 35-52 Automated erythrocyte mean corpuscular volume 95 [foz_us] 80-99 Automated erythrocyte mean corpuscular hemoglobin (mass per erythrocyte) 32 pg 25-34 Automated erythrocyte mean corpuscular hemoglobin concentration measurement (mass/volume) 34 g/dL 32-36 Automated erythrocyte distribution width ratio 12.8 % 10.0- 14.5 Automated blood platelet count (count/volume) 121 10*3/uL 130-400 Automated blood platelet mean volume measurement 10.8 [foz_us] 7.4-10.4 Automated blood neutrophils/100 leukocytes 55 % 42-75 Automated blood lymphocytes/100 leukocytes 34 % 12-44 Blood monocytes/100 leukocytes 8 % 0-12 Automated blood eosinophils/100 leukocytes 2 % 0-10 Automated blood basophils/100 leukocytes 0 % 0-10 Blood neutrophils automated count (number/volume) 3.1 10*3 1.8-7.8 Blood lymphocytes automated count (number/volume) 2.0 10*3 1.0-4.0 Blood monocytes automated count (number/volume) 0.5 10*3 0.0- 1.0 Automated eosinophil count 0.1 10*3/uL 0.0-0.3 Automated blood basophil count (count/volume) 0.0 10*3/uL 0.0-0.1 Comprehensive metabolic panel - 11/28/18 15:10 Serum or plasma sodium measurement (moles/volume) 143 mmol/L 135-145 Serum or plasma potassium measurement (moles/volume) 4.3 mmol/L 3.6-5.0 Serum or plasma chloride measurement (moles/volume) 101 mmol/L 98-107 Carbon dioxide 34 mmol/L 21-32 Serum or plasma anion gap determination (moles/volume) 8 mmol/L 5-14 Serum or plasma urea nitrogen measurement (mass/volume) 15 mg/dL 7-18 Serum or plasma creatinine measurement (mass/volume) 1.19 mg/dL 0.60-1.30 Serum or plasma urea nitrogen/creatinine mass ratio 13 NRG Serum or plasma creatinine measurement with calculation of estimated glomerular filtration rate 48 NRG Serum or plasma glucose measurement (mass/volume) 164 mg/dL 70-105 Serum or plasma calcium measurement (mass/volume) 9.2 mg/dL 8.5-10.1 Serum or plasma total bilirubin measurement (mass/volume) 0.2 mg/dL 0.1-1.0 Serum or plasma alkaline phosphatase measurement (enzymatic activity/volume) 95 U/L 40-136 Serum or plasma aspartate aminotransferase measurement (enzymatic activity/volume) 21 U/L 5-34 Serum or plasma alanine aminotransferase measurement (enzymatic activity/volume) 30 U/L 0-55 Serum or plasma protein measurement (mass/volume) 6.2 g/dL 6.4-8.2 Serum or plasma albumin measurement (mass/volume) 3.7 g/dL 3.2-4.5 CALCIUM CORRECTED 9.4 mg/dL 8.5-10.1 Lipase - 11/28/18 15:10 Lipase 38 U/L 8-78 Encounters ACCT No. Visit Date/Time Discharge Status Pt. Type Provider Facility Loc./Unit Complaint [id number] 10/12/2014 09:53:00 10/12/2014 23:59:59 CLS Outpatient KIM MITCHELL MD [id number] 06/18/2014 09:06:00 06/18/2014 23:59:59 CLS Outpatient DANIELA JACOBSON DDS [id number] 04/23/2014 15:22:00 04/23/2014 23:59:59 CLS Outpatient KIM MITCHELL MD [id number] 04/23/2014 15:22:00 04/23/2014 23:59:59 CLS Outpatient KIM MITCHELL MD [id number] 04/06/2014 11:00:00 04/06/2014 23:59:59 CLS Outpatient KIM MITCHELL MD [id number] 04/03/2014 17:30:00 04/03/2014 23:59:59 CLS Outpatient KIM MITCHELL MD [id number] 07/12/2017 16:59:00 07/13/2017 00:16:00 [facility] [id number] 11/08/2018 11:20:00 11/08/2018 23:59:59 [facility] [id number] 05/04/2017 08:40:00 Document Registration [id number] 03/17/2017 09:40:00 Document Registration [id number] 11/22/2018 22:26:00 11/23/2018 02:10:00 DIS Emergency ELEN POLLACK MD [facility] ER FS ABD PAIN [id number] 11/17/2018 06:59:00 11/17/2018 23:59:59 CLS Preadmit ELAINA RAMÍREZ [facility] SLEEP LYDIA G47.33 [id number] 11/14/2018 12:58:00 11/14/2018 23:59:59 CLS Outpatient ELAINA RAMÍREZ [facility] RAD LUMBAR DEGENERATIVE DISC DISEASE [id number] 11/08/2018 11:39:00 11/08/2018 14:36:00 DIS Emergency YUMIKO PUGH DO [facility] ER FS ABD PAIN [id number] 11/03/2018 02:47:00 11/03/2018 06:00:00 DIS Emergency LYLA LANGE MD [facility] ER FS LIGHT HEADED;HEADACHE [id number] 10/03/2018 22:16:00 10/04/2018 02:50:00 DIS Emergency LYLA LANGE MD [facility] ER FS ABD PAIN [id number] 09/01/2018 16:40:00 09/01/2018 17:08:00 DIS Emergency YUMIKO PUGH DO [facility] ER FS ABD PAIN,SOB [id number] 08/29/2018 12:40:00 08/29/2018 16:10:00 DIS Emergency LEONIDES ALFARO MD [facility] ER FS ABD PAIN [id number] 08/05/2018 14:05:00 08/05/2018 23:59:59 CLS Outpatient RICHA WIGGINS RETAIL TEAM LEADER [facility] RAD BILATERAL LOWER EXTREMITY EDEMA [id number] 07/19/2018 07:12:00 07/19/2018 13:06:00 DIS Outpatient LUCIA IGNACIO FACMiguelito, NICHELLE FACP CCDS [facility] CATH CHEST DISCOMFORT,PALPITATIONS,SOB,OBESITY [id number] 07/15/2018 14:57:00 07/15/2018 23:59:59 CLS Outpatient ECTOR GR RETAIL TEAM LEADER [facility] RAD RLQ ABD PAIN [id number] 07/08/2018 14:13:00 07/08/2018 23:59:59 CLS Preadmit LUCIA IGNACIO FACMiguelito, NICHELLE FACP CCDS [facility] CARD CHEST DISCOMFORT,PALPITATIONS,SOB,OBESITY [id number] 07/08/2018 14:13:00 07/08/2018 23:59:59 CLS Preadmit LUCIA IGNACIO FACMiguelito, ALI FACP CCDS [facility] CARD CHEST DISCOMFORT,PALPITATIONS,SOB,OBESITY [id number] 07/06/2018 14:48:00 07/06/2018 23:59:59 CLS Outpatient ARMANDO IGNACIO, ARIES Anglin (DDU) [facility] RT ASTHMA [id number] 06/27/2018 18:28:00 06/27/2018 22:02:00 DIS Emergency EDDI RAMIREZ [facility] ER LETHARGIC,BODY ACHES [id number] 05/14/2017 08:00:00 05/14/2017 23:59:59 CLS Preadmit JASON MOSQUERA [employer] [facility] RAD M25.562 ACUTE PAIN OF LEFT KNEE [id number] 12/20/2016 15:40:00 12/20/2016 19:24:00 DIS Emergency JEANNETTE BELLO RETAIL TEAM LEADER [facility] ER ABD PAIN [id number] 12/19/2016 21:59:00 12/19/2016 22:41:00 DIS Emergency RADHA AVERY DO [facility] ER L SIDE STOMACH PAIN/HOT FLASHES [id number] 11/28/2018 15:25:00 Document Registration
== END 2018-11-28 17:24 | disposition home or self-care (01) ==
LOC: EDUNIT# 14:10 → ER FS 14:11
DX: R10.31 Right lower quadrant pain (principal); G89.29 Other chronic pain; F32.9 Major depressive disorder, single episode, unspecified; J45.909 Unspecified asthma, uncomplicated; K21.9 Gastro-esophageal reflux disease without esophagitis; E03.9 Hypothyroidism, unspecified; Z88.2 Allergy status to sulfonamides; Z88.8 Allergy status to other drugs, medicaments and biological substances; Z88.1 Allergy status to other antibiotic agents; Z98.890 Other specified postprocedural states; Z87.891 Personal history of nicotine dependence; Z90.49 Acquired absence of other specified parts of digestive tract; Z90.710 Acquired absence of both cervix and uterus; Z87.19 Personal history of other diseases of the digestive system
CPT/HCPCS: 36415; 74022; 80053; 81000; 83690; 85025; 96361; 96372; 96374; 96375

== ENCOUNTER → 2018-12-01 | Outpatient (CLI) | payer MEDICAID ==
[~2018-12-01] MED LIST changes: +DICY10CA12 PO; +OXYC-471 PO; +PROM25TA14 PO; +SUCR1TAB36 PO; +TRAZ150T72
--- NOTE | 2018-12-01 12:02 | Diagnostic Imaging Report ---
INDICATION: Bilateral hand pain. COMPARISON: None. FINDINGS: Multiple radiographic views of the bilateral hands show no fractures, dislocations, or other acute bony abnormalities identified. Joint spaces are well maintained throughout. The soft tissues appear unremarkable. No radiopaque foreign bodies are identified. IMPRESSION: Unremarkable radiographic exam of the bilateral hands. Dictated by: Dictated on workstation # [id number]
== END ==
LOC: RAD FS 11:22
PROVIDERS: ATTEND Internal Medicine Rheumatology
DX: M19.041 Primary osteoarthritis, right hand (principal); M19.042 Primary osteoarthritis, left hand

== ENCOUNTER 2018-12-03 23:59 | Emergency (ER) | payer MEDICAID ==
[~2018-12-03] VITALS: Ht 170.2 cm; Wt 136.1 kg
[~2018-12-03 23:59] MED LIST changes: -OXYC-471 PO; -PROM25TA14 PO; -SUCR1TAB36 PO
--- NOTE | 2018-12-04 00:52 | ED Abdominal Pain ---
General Chief Complaint: Abdominal/GI Problems Stated Complaint: ABDOMINAL PAIN Sepsis Screen: No Definite Risk Source of Information: Patient History of Present Illness Date Seen by Provider: Dec 04, 2018 Time Seen by Provider: 00:48 Initial Comments 48 yo F presenting yet again to the ED with recurrent abdominal pain. She has been seen at the end of October and then again here in November two times already this month. She was to follow up with Dr. Ferguson for surgery but instead of calling had simply arrived at the clinic because she reports she was told to go and say she was to be worked in to the clinic schedule. However Dr. Ferguson was in surgery that day and unavailable. She has an appt this week to see him but with pain more severe this week she had come to the ED tonight to be seen. According to the note from Dr. Madden she was to call and request an appointment in the next few days to be seen, not to go and request to be worked in to the schedule. she reports increasing pain in the last 3 days. The pain feels the same as her chronic pain she always has but now she has more intense pain and it is worse with trying to have a bowel movement. She denied fever or chills. She has had some night sweats. She denies pain with urination. She has nausea but not vomiting. She has feeling like blisters to her tongue and states nothing tastes good for her. Allergies and Home Medications Allergies Coded Allergies: Sulfa (Sulfonamide Antibiotics) (Verified Allergy, Unknown, 06/27/18) hydroxyzine (Verified Allergy, Unknown, 06/27/18) prochlorperazine (Verified Allergy, Unknown, 12/20/16) tetracycline (Verified Allergy, Unknown, 06/27/18) Home Medications Cyclobenzaprine HCl 10 Mg Tablet, 10 MG PO BID PRN for PRN, (Reported) Dicyclomine HCl 10 Mg Capsule, 10 MG PO Q6H Prescribed by: VEGA MADDEN on 11/28/18 1711 Furosemide 40 Mg Tablet, 40 MG PO DAILY, (Reported) Gabapentin 300 Mg Capsule, 300 MG PO PRN, (Reported) Hydrocodone/Acetaminophen 1 Each Tablet, 1 TAB PO Q4-6HR Prescribed by: ELEN POLLACK on 11/23/18 0150 Levothyroxine Sodium 50 Mcg Tablet, 50 MCG PO DAILY, (Reported) Meloxicam 15 Mg Tablet, 15 MG PO DAILY, (Reported) Ondansetron HCl 8 Mg Tablet, 8 MG PO Q6H PRN for NAUSEA/VOMITING-1ST LINE Prescribed by: LEONIDES ALFARO on 08/29/18 1605 Oxycodone HCl/Acetaminophen 1 Each Tablet, 1 TAB PO Q6H PRN for ABDOMINAL PAIN Prescribed by: LEONIDES ALFARO on 08/29/18 1605 Oxycodone HCl/Acetaminophen 1 Each Tablet, 1 TAB PO Q4H Prescribed by: VEGA MADDEN on 11/28/18 1711 Oxycodone HCl/Acetaminophen 1 Each Tablet, 1 EACH PO Q4H PRN for PAIN-SEVERE Prescribed by: LYLA LANGE on 12/04/18440 Promethazine HCl 25 Mg Tablet, 25 MG PO Q6H PRN for NAUSEA/VOMITING Prescribed by: LYLA MARTINEZRT on 12/04/18440 Sucralfate 1 Gm Tablet, 1 GM PO ACHS Prescribed by: LYLA MARTINEZRT on 12/04/18 044 Venlafaxine HCl 75 Mg Tab, 75 MG PO BID, (Reported) Patient Home Medication List Home Medication List Reviewed: Yes Review of Systems Review of Systems Constitutional: see HPI; No chills, No fever; malaise EENTM: No Blurred Vision, No Ear Pain, No Nose Congestion Respiratory: Denies Cough Cardiovascular: Denies Chest Pain Gastrointestinal: See HPI, Abdominal Pain; Denies Constipated, Denies Diarrhea, Denies Difficulty Swallowing, Denies Vomiting Genitourinary: Denies Burning, Denies Discharge, Denies Frequency, Denies Flank Pain Musculoskeletal: No no symptoms reported Skin: No no symptoms reported Psychiatric/Neurological: Denies No Symptoms Reported Endocrine: Denies No Symptoms Reported Past Cmhiuoc-Awedfr-Lskvwn Hx Past Med/Social Hx: Reviewed Nursing Past Med/Soc Hx Patient Social History Alcohol Use: Denies Use Recreational Drug Use: No Type Used: Cigarettes Former Smoker, Quit: Jun 15, 1996 2nd Hand Smoke Exposure: No Recent Foreign Travel: No Contact w/Someone Who Travel: No Recent Infectious Disease Expo: No Recent Hopitalizations: No Physical Abuse: No Sexual Abuse: No Mistreated: No Fear: No Immunizations Up To Date Tetanus Booster (TDap): Less than 5yrs PED Vaccines UTD: Yes Date of Pneumonia Vaccine: Apr 18, 2013 Date of Influenza Vaccine: Apr 18, 2018 Seasonal Allergies Seasonal Allergies: No Past Medical History Surgeries: Yes (HERNIA X3) Abdominal, Appendectomy, Gallbladder, Hysterectomy Respiratory: No Asthma Currently Using CPAP: No Currently Using BIPAP: No Cardiac: No Chronic Edema/Swelling Neurological: 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 0.0oz. 136.006186cp; 48.6 BMI Method:Stated General Appearance: WD/WN, obese HEENT: PERRL/EOMI; No photophobia, No pharyngeal erythema; other (mild increase to erythema of tongue) Neck: non-tender, full range of motion, supple, normal inspection Respiratory: chest non-tender, lungs clear, normal breath sounds, no accessory muscle use Cardiovascular: normal peripheral pulses, regular rate, rhythm Peripheral Pulses: 2+ Dorsalis Pedis (R), 2+ Left Dors-Pedis (L), 2+ Radial Pulses (R), 2+ Radial Pulses (L) Gastrointestinal: soft; No no pulsatile mass; abnormal bowel sounds (hypoactive bowel sounds); No guarding, No rebound; tenderness (diffuse but worse on the right side of abdomen), other (obese abdomen with midline scar ) Rectal: deferred Extremities: normal range of motion, non-tender, normal inspection Neurologic/Psychiatric: alert, oriented x 3 Skin: normal color, warm/dry Progress/Results/Core Measures Results/Orders Lab Results Laboratory Tests Test 12/04/18 01:19 12/04/18 01:25 Range/Units Urine Color YELLOW Urine Clarity SLT CLOUDY Urine pH 6.0 5-9 Urine Specific [place] >=1.030 1.016-1.022 Urine Protein 2+ H NEGATIVE Urine Glucose (UA) NEGATIVE NEGATIVE Urine Ketones NEGATIVE NEGATIVE Urine Nitrite NEGATIVE NEGATIVE Urine Bilirubin NEGATIVE NEGATIVE Urine Urobilinogen 0.2 NORMAL MG/DL Urine Leukocyte Esterase NEGATIVE NEGATIVE Urine RBC (Auto) 3+ H NEGATIVE Urine RBC 5-10 H /HPF Urine WBC 2-5 /HPF Urine Squamous Epithelial Cells 5-10 /HPF Urine Crystals NONE /LPF Urine Bacteria FEW H /HPF Urine Casts NONE /LPF Urine Mucus NONE /LPF Urine Culture Indicated YES White Blood Count 6.5 4.3-11.0 10^3/uL Red Blood Count 4.24 L 4.35-5.85 10^6/uL Hemoglobin 13.5 11.5-16.0 G/DL Hematocrit 40 35-52 % Mean Corpuscular Volume 94 80-99 FL Mean Corpuscular Hemoglobin 32 25-34 PG Mean Corpuscular Hemoglobin Concent 34 32-36 G/DL Red Cell Distribution Width 12.8 10.0-14.5 % Platelet Count 145 130-400 10^3/uL Mean Platelet Volume 11.1 H 7.4-10.4 FL Neutrophils (%) (Auto) 50 42-75 % Lymphocytes (%) (Auto) 37 12-44 % Monocytes (%) (Auto) 9 0-12 % Eosinophils (%) (Auto) 3 0-10 % Basophils (%) (Auto) 0 0-10 % Neutrophils # (Auto) 3.3 1.8-7.8 X 10^3 Lymphocytes # (Auto) 2.4 1.0-4.0 X 10^3 Monocytes # (Auto) 0.6 0.0-1.0 X 10^3 Eosinophils # (Auto) 0.2 0.0-0.3 10^3/uL Basophils # (Auto) 0.0 0.0-0.1 10^3/uL Sodium Level 139 135-145 MMOL/L Potassium Level 4.0 3.6-5.0 MMOL/L Chloride Level 100 98-107 MMOL/L Carbon Dioxide Level 26 21-32 MMOL/L Anion Gap 13 5-14 MMOL/L Blood Urea Nitrogen 18 7-18 MG/DL Creatinine 0.84 0.60-1.30 MG/DL Estimat Glomerular Filtration Rate > 60 BUN/Creatinine Ratio 21 Glucose Level 112 H 70-105 MG/DL Calcium Level 9.1 8.5-10.1 MG/DL Corrected Calcium 9.2 8.5-10.1 MG/DL Total Bilirubin 0.2 0.1-1.0 MG/DL Aspartate Amino Transf (AST/SGOT) 24 5-34 U/L Alanine Aminotransferase (ALT/SGPT) 35 0-55 U/L Alkaline Phosphatase 91 40-136 U/L Total Protein 6.8 6.4-8.2 GM/DL Albumin 3.9 3.2-4.5 GM/DL Lipase 39 8-78 U/L My Orders Orders - LYLA LANGE MD Comprehensive Metabolic Panel (12/04/18 01:12) Lipase (12/04/18 01:12) Ua Culture If Indicated (12/04/18 01:12) Ed Iv/Invasive Line Start (12/04/18 01:12) Acute Abd Series (12/04/18 01:12) Cbc With Automated Diff (12/04/18 01:12) Ns Iv 1000 Ml (Sodium Chloride 0.9%) (12/04/18 01:30) Ketorolac Injection (Toradol Injection) (12/04/18 01:18) Morphine Injection (Morphine Injection (12/04/18 01:18) Pantoprazole Injection (Protonix Injecti (12/04/18 01:18) Urine Culture (12/04/18 01:19) Promethazine Injection (Phenergan Injec (12/04/18 03:14) Fentanyl Injection (Sublimaze Injection (12/04/18 03:14) Oxycodone/Apap 5/325mg Tablet (Percocet (12/04/18 04:33) Vital Signs/I&O 12/04/18 00:25 Temp 96.9 Pulse 76 Resp 20 B/P (MAP) 137/104 (115) Pulse Ox 96 O2 Delivery Room Air Blood Pressure Mean: 115 Progress Progress Note #1: Progress Note check labs and urine. obtain acute abdomen series to look for obstruction or perforation since she has had several CT scans just here at [place] in the last few months. Will try a dose of Toradol for pain, Morphine for pain, Protonix for pain, IVF for hydration. Progress Note #2: Progress Note On recheck she states she still feels the pain and is no better after treatment. Will add in Fentanyl for pain and check about adding CT since that is the only other test I have available in the ED. However I did discuss with her that this will give her additional radiation and increase her lifelong risk of cancer Upon further discussion with the assessment technician in the IV that she hasn't place with likely not hold up to IV contrast for the CT scan. She was stuck multiple times to obtain IV that she did have. Based on this and the fact that she is very had over 5 CT scans chest here [facility] in the last several months will defer performing another CT scan today. I did update patient about these changes. Upon updated her about this they did have a discussion with her about possible transfer her this discussion of the transfer with the [facility] staff where he would have more hernia specialist to be seen and evaluated there for her symptoms and issues. Patient was reluctant to be transferred to go there despite saying multiple times that she wanted to get an answer to the bottom of what was causing her pain and symptoms. She stated that she did not have the money for gas or way to get back and forth from [facility]. Abdomen suggested trying to get ahold of Dr. Ferguson since she has an appointment on Wednesday with him. She stated she was willing to do that so I spoke with him about the case and he suggested ordering a small bowel follow-through to be done Wednesday. When I discussed this with the patient she stated that she could not make an appointment with radiology on Wednesday but she could make one on Wednesday. Had told her that that was fine his lungs the chest was done before she needs to be seen on Wednesday with Dr. Ferguson in the clinic. Will give a dose of Percodet and discharge to home on a few days pain pills as directed by Dr. Ferguson and Phenergan for nausea and Carafate for GERD. Diagnostic Imaging Diagonstic Imaging: Xray Plain Films/CT/US/NM/MRI: abdomen Comments On my review of her 3 view films of her acute abdomen series I did not see any evidence of obstruction or perforation. Reviewed: Reviewed by Me Departure Impression Primary Impression: Diffuse abdominal pain Additional Impressions: Ventral hernia, recurrent Seroma, postoperative Qualified Codes: L76.34 - Postprocedural seroma of skin and subcutaneous tissue following other procedure Disposition: 01 HOME, SELF-CARE Condition: Stable Departure-Patient Inst. Decision time for Depature: 04:38 Referrals: SELF,MARITA IGNACIO (PCP/Family) Primary Care Physician Patient Instructions: Abdominal Hernia (DC), Acute Abdomen (Belly Pain), Adult (DC) Add. Discharge Instructions: Call [facility] Wednesday to schedule a Small Bowel Follow Through with radiology for Wednesday or Wednesday at the latest so the test can be done before he see Dr. Ferguson on Wednesday. Try taking Carafate for your stomach pain and see if that helps with the nausea as well. Use the Percocet for severe pain as needed. Keep your appointment on WednesdayDecember [address] Ferguson in [facility] All discharge instructions reviewed with patient and/or family. Voiced understanding. Scripts Promethazine HCl (Promethazine Tablet) 25 Mg Tablet 25 MG PO Q6H PRN for NAUSEA/VOMITING for 5 Days, #20 TAB 0 Refills Prov: LYLA LANGE MD 12/04/18 Sucralfate (Carafate) 1 Gm Tablet 1 GM PO ACHS for 15 Days, #60 TAB 0 Refills Prov: LYLA LANGE MD 12/04/18 Oxycodone HCl/Acetaminophen (Oxycodone-Acetaminophen 5-325) 1 Each Tablet 1 EACH PO Q4H PRN for PAIN-SEVERE MDD 6 for 5 Days, #30 TAB 0 Refills Prov: LYLA LANGE MD 12/04/18 LYLA LANGE MD Dec 04, 2018 00:52
[2018-12-04] MEDS ORDERED: morphine INJ 10 MG/ML 1ML (SYR OR VIAL) IVP STA (01:18)
[2018-12-04] MEDS ORDERED: PANTOPRAZOLE 40 MG (PROTONIX) VIAL IV STA (01:18)
[2018-12-04] MEDS ORDERED: KETOROLAC 30 MG/ML VIAL IVP STA (01:18)
[2018-12-04] MEDS ORDERED: NS IV 1000 ML 1,000 ML IV SCH (01:30)
[2018-12-04 01:41] LABS: HEMATOCRIT 40 % (35-52); HEMOGLOBIN 13.5 G/DL (11.5-16.0); MEAN CORPUSCULAR HEMOGLOBIN 32 PG (25-34); MEAN CORPUSCULAR VOLUME 94 FL (80-99); WHITE BLOOD COUNT 6.5 10^3/uL (4.3-11.0)
[2018-12-04 01:42] LABS: BASOPHILS % (AUTO) 0 % (0-10); EOSINOPHILS # (AUTO) 0.2 10^3/uL (0.0-0.3); EOSINOPHILS % (AUTO) 3 % (0-10); LYMPHOCYTES # (AUTO) 2.4 X 10^3 (1.0-4.0); LYMPHOCYTES % (AUTO) 37 % (12-44); MEAN CORPUSCULAR HGB CONC 34 G/DL (32-36); MEAN PLATELET VOLUME 11.1 FL (7.4-10.4); MONOCYTES # (AUTO) 0.6 X 10^3 (0.0-1.0); MONOCYTES % (AUTO) 9 % (0-12); NEUTROPHILS # (AUTO) 3.3 X 10^3 (1.8-7.8); NEUTROPHILS % (AUTO) 50 % (42-75); PLATELET COUNT 145 10^3/uL (130-400); RED CELL DISTRIBUTION WIDTH 12.8 % (10.0-14.5)
[2018-12-04 01:48] LABS: CLARITY,URINE SLT CLOUDY; COLOR,URINE YELLOW
[2018-12-04 01:49] LABS: BILIRUBIN,URINE NEGATIVE (NEGATIVE); GLUCOSE, URINE (UA) NEGATIVE (NEGATIVE); KETONES,URINE NEGATIVE (NEGATIVE); NITRITE,URINE NEGATIVE (NEGATIVE); PROTEIN,URINE 2+ (NEGATIVE)
[2018-12-04 01:50] LABS: BACTERIA,URINE FEW /HPF; LEUKOCYTE ESTERASE ,URINE NEGATIVE (NEGATIVE); UROBILINOGEN,URINE 0.2 MG/DL (NORMAL)
[2018-12-04 02:07] LABS: ALKALINE PHOSPHATASE 91 U/L (40-136); BILIRUBIN,TOTAL 0.2 MG/DL (0.1-1.0); BUN/CREATININE RATIO 21; CALCIUM 9.1 MG/DL (8.5-10.1); CARBON DIOXIDE 26 MMOL/L (21-32); CHLORIDE 100 MMOL/L (98-107); CREATININE SERUM 0.84 MG/DL (0.60-1.30); GFR ESTIMATED > 60; GLUCOSE 112 MG/DL (70-105); SODIUM 139 MMOL/L (135-145)
[2018-12-04 02:08] LABS: ALANINE AMINOTRANSFERASE 35 U/L (0-55); ALBUMIN 3.9 GM/DL (3.2-4.5); LIPASE 39 U/L (8-78); TOTAL PROTEIN 6.8 GM/DL (6.4-8.2)
[2018-12-04] MEDS ORDERED: PROMETHAZINE INJ 25 MG/ML (PHENERGAN) AMP IVP STA (03:14)
[2018-12-04] MEDS ORDERED: fentaNYL INJECTION 100 MCG/2 ML AMP IVP STA (03:14)
[2018-12-04] MEDS ORDERED: oxyCODONE/APAP 5/325MG (PERCOCET 5) TABLET PO STA (04:33)
[2018-12-04] MEDS ORDERED: OXYC-471 PO (04:41)
[2018-12-04] MEDS ORDERED: PROM25TA14 PO (04:41)
[2018-12-04] MEDS ORDERED: SUCR1TAB36 PO (04:41)
[2018-12-04 04:49] VITALS: BP 132/80
--- NOTE | 2018-12-04 07:07 | Diagnostic Imaging Report ---
EXAM: ACUTE ABD SERIES INDICATION: Abdominal pain. COMPARISON: Chest radiograph of 11/28/2018. FINDINGS: Nonspecific bowel gas pattern. Surgical clips scattered throughout the abdomen. No free intraperitoneal air. Cardiomegaly with normal central pulmonary vascularity. No focal pulmonary opacity, pleural effusion or pneumothorax. No acute osseous findings. IMPRESSION: No acute radiographic findings in the abdomen or chest. Dictated by: Dictated on workstation # [id number]
== END 2018-12-04 04:48 | disposition home or self-care (01) ==
LOC: EDUNIT# 23:59 → ER FS 12-04 00:02
DX: L76.34 Postprocedural seroma of skin and subcutaneous tissue following other procedure (principal); K43.9 Ventral hernia without obstruction or gangrene; J45.909 Unspecified asthma, uncomplicated; K21.9 Gastro-esophageal reflux disease without esophagitis; M41.9 Scoliosis, unspecified; F32.9 Major depressive disorder, single episode, unspecified; E03.9 Hypothyroidism, unspecified; Z87.19 Personal history of other diseases of the digestive system; Z88.2 Allergy status to sulfonamides; Z88.8 Allergy status to other drugs, medicaments and biological substances; Z88.1 Allergy status to other antibiotic agents; Z87.891 Personal history of nicotine dependence; Z90.710 Acquired absence of both cervix and uterus; Z90.49 Acquired absence of other specified parts of digestive tract; Z98.890 Other specified postprocedural states
CPT/HCPCS: 36415; 74022; 80053; 81000; 83690; 85025; 87088; 96361; 96374; 96375

== ENCOUNTER 2018-12-05 23:08 | Emergency (ER) | payer MEDICAID ==
[~2018-12-05] VITALS: Ht 170.2 cm; Wt 136.1 kg
[~2018-12-05 23:08] MED LIST changes: +OXYC-471 PO; +PROM25TA14 PO; +SUCR1TAB36 PO
[2018-12-05 23:30] VITALS: BP 156/79
--- NOTE | 2018-12-05 23:45 | ED Abdominal Pain ---
General Chief Complaint: Abdominal/GI Problems Stated Complaint: ED FS Source of Information: Patient History of Present Illness Date Seen by Provider: Dec 05, 2018 Time Seen by Provider: 23:40 Initial Comments Patient is a 48 year old female who is well-known to this facility and provider presents with a recurrence of chronic abdominal pain. Patient seen here yesterday for same multiple times in the past 2 months. She has an appointment scheduled tomorrow and [place] for a small bowel follow-through. She is followed by Dr. Ferguson. No nausea vomiting diarrhea. Pain is located in the right lower quadrant it is an same pattern and intensity is prior episodes.. Patient also reports concern for peripheral edema. Patient was given IV fluids in the ED when she was last treated. Patient is on daily diuretic at home. No chest pain shortness of breath. Denies decreased urinary output. No other acute symptoms or complaints. Timing/Duration: Other Severity/Quality: Moderate Location: RLQ, Other Activities at Onset: None Modifying Factors: Improves With Analgesics Allergies and Home Medications Allergies Coded Allergies: Sulfa (Sulfonamide Antibiotics) (Verified Allergy, Unknown, 06/27/18) hydroxyzine (Verified Allergy, Unknown, 06/27/18) prochlorperazine (Verified Allergy, Unknown, 12/20/16) tetracycline (Verified Allergy, Unknown, 06/27/18) Home Medications Cyclobenzaprine HCl 10 Mg Tablet, 10 MG PO BID PRN for PRN, (Reported) Dicyclomine HCl 10 Mg Capsule, 10 MG PO Q6H Prescribed by: VEGA BAUGH on 11/28/18 1711 Furosemide 40 Mg Tablet, 40 MG PO DAILY, (Reported) Gabapentin 300 Mg Capsule, 300 MG PO PRN, (Reported) Hydrocodone/Acetaminophen 1 Each Tablet, 1 TAB PO Q4-6HR Prescribed by: ELEN POLLACK on 11/23/18 0150 Levothyroxine Sodium 50 Mcg Tablet, 50 MCG PO DAILY, (Reported) Meloxicam 15 Mg Tablet, 15 MG PO DAILY, (Reported) Ondansetron HCl 8 Mg Tablet, 8 MG PO Q6H PRN for NAUSEA/VOMITING-1ST LINE Prescribed by: LEONIDES ALFARO on 08/29/18 1605 Oxycodone HCl/Acetaminophen 1 Each Tablet, 1 TAB PO Q6H PRN for ABDOMINAL PAIN Prescribed by: LEONIDES ALFARO on 08/29/18 1605 Oxycodone HCl/Acetaminophen 1 Each Tablet, 1 TAB PO Q4H Prescribed by: VEGA BAUGH on 11/28/18 1711 Oxycodone HCl/Acetaminophen 1 Each Tablet, 1 EACH PO Q4H PRN for PAIN-SEVERE Prescribed by: LYLA LANGE on 12/04/18440 Promethazine HCl 25 Mg Tablet, 25 MG PO Q6H PRN for NAUSEA/VOMITING Prescribed by: LYLA LANGE on 12/04/18440 Sucralfate 1 Gm Tablet, 1 GM PO ACHS Prescribed by: LYLA LANGE on 12/04/18440 Venlafaxine HCl 75 Mg Tab, 75 MG PO BID, (Reported) Patient Home Medication List Home Medication List Reviewed: Yes Review of Systems Review of Systems Constitutional: see HPI EENTM: See HPI Respiratory: See HPI Cardiovascular: See HPI Gastrointestinal: See HPI Genitourinary: See HPI Musculoskeletal: see HPI, back pain Skin: see HPI Psychiatric/Neurological: See HPI Endocrine: See HPI Hematologic/Lymphatic: See HPI Past Chmwbnj-Lidbha-Cndsqd Hx Past Med/Social Hx: Reviewed Nursing Past Med/Soc Hx Patient Social History Type Used: Cigarettes Former Smoker, Quit: Jun 15, 1996 2nd Hand Smoke Exposure: No Recent Foreign Travel: No Contact w/Someone Who Travel: No Recent Hopitalizations: No Immunizations Up To Date Tetanus Booster (TDap): Less than 5yrs PED Vaccines UTD: Yes Date of Pneumonia Vaccine: Apr 18, 2013 Date of Influenza Vaccine: Apr 18, 2018 Seasonal Allergies Seasonal Allergies: No Past Medical History Surgeries: Yes (HERNIA X3) Abdominal, Appendectomy, Gallbladder, Hysterectomy Respiratory: No Asthma Currently Using CPAP: No Currently Using BIPAP: No Cardiac: No Chronic Edema/Swelling 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 0oz. 136.520095lp; 48.6 BMI Method:Stated General Appearance: WD/WN HEENT: PERRL/EOMI, normal ENT inspection Neck: full range of motion, supple Respiratory: lungs clear, normal breath sounds Cardiovascular: regular rate, rhythm, other Gastrointestinal: normal bowel sounds, other (RLQ/pelvic pain: tenderness) Extremities: other (trace peripheral edema R wrist over IV insertion or blood draw site site of increased swelling, B trace peripheral edema of lower ext. 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 Patient has recent labs imaging performed at this facility yesterday and is scheduled to undergo as small bowel follow-through evaluation tomorrow on [place]. I think this is a reasonable plan and additional lab studies, imaging studies and doses of pain medications at this point would be repetitive and low yield and complicate patient's diagnosis. Patient also complains of increased peripheral edema is most noticeable in the dorsum of right hand. This is in proximity of IV insertion site or blood draw from recent ED visit. There is no palpable cord, erythema, tightness in the forearm to suggest compartment syndrome. There is bilateral trace edema of lower extremities. Recommend taking an additional dose of Lasix and following up with her PCP. I think the likelihood of DVT given the location and the wrist and hand. The patient is not complaining of chest pain or shortness of breath. Patient ambulated to and from the bathroom without difficulty, but would appear to be in significantly more pain upon entering her room. It is unclear why the patient's pain increases significantly when the examiner enters the room. Given the myriad of patient's chronic recurrent symptoms, I explained patient is best that she is followed by her PCP and specialist for chronic medical conditions as to decrease harm due to duplication of unnecessary tests, repeated radiation exposure and treatment with dangerous with addictive medications. I discussed my concern for the patient's well being with patient. She agrees to follow-up plan. Impression Primary Impression: Peripheral edema Additional Impression: Chronic abdominal pain Disposition: HOME, SELF-CARE Condition: Improved Departure-Patient Inst. Add. Discharge Instructions: Please take an extra dose of lasix upon returning home and follow up with your Small bowel follow through appointment tomorrow and follow up with your PCP for review or recent ED labs, imaging studies and ongoing symptoms. All discharge instructions reviewed with patient and/or family. Voiced understanding. YUMIKO PUGH DO Dec 05, 2018 23:45
--- OUTSIDE RECORDS SUMMARY | 2018-12-05 23:48 | XMS REPORT | Clinical Summary ---
Author Author [facility] Organization [facility] Address Unknown Phone Unavailable Care Team Providers Care Credit Control Administrator Name Role Phone Gemini Herring MD PCP Source Comments Some departments are not documenting in the electronic medical record. 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 For more i nformation, please contact: [facility] [address] [place] [address] Date Inactivated Comments Code Status Date Activated 12/25/2016 7:37 PM Full Code 12/23/2016 2:04 AM Provider has discussed Code Status Yes w/Patient or Family? 12/02/2016 2:44 PM Full Code 11/29/2016 5:17 AM Provider has discussed Code Status Yes w/Patient or Family?
--- OUTSIDE RECORDS SUMMARY | 2018-12-06 00:01 | XMS REPORT | Continuity of Care Document ---
Author Organization Unknown Address Unknown Allergies Active Description Code Type Severity Reaction Onset Reported/Identified Relationship to Patient Clinical Status Yes Compazine Drug N/A Agitation Yes hydrOXYzine Drug N/A Agitation Yes sulfa drugs Drug N/A N Yes Sulfa (Sulfonamide Antibiotics) Drug Allergy N/A N/A 04/03/2014 Yes Tetracyclines Drug Allergy N/A N/A 04/03/2014 Yes No Known Drug Allergies [id number] Drug Allergy Unknown N/A 12/20/2016 Yes prochlorperazine [id number] Drug Allergy Unknown N/A 12/20/2016 Yes hydroxyzine [id number] Drug Allergy Unknown N/A 06/27/2018 Yes Sulfa (Sulfonamide Antibiotics) [id number] Drug Allergy Unknown N/A 06/27/2018 Yes tetracycline [id number] Drug Allergy Unknown N/A 06/27/2018 Medications Medication [...] 04/03/2014 KIM MITCHELL MD 626.2 MENORRHAGIA 04/03/2014 KMI MITCHELL MD 626.2 MENORRHAGIA 04/03/2014 KIM MITCHELL [...] Geovanny Ot R10.9 UNSPECIFIED ABDOMINAL PAIN 12/19/2016 GEAN LACY RADHA Geovanny Ot Z53.21 PROC/TRTMT NOT CRD OUT D/T PT LV BEF SEE 12/20/2016 JEANNETTE BELLO POSITION CLASSIFICATION SPECIALIST Ot R11.2 NAUSEA WITH VOMITING, UNSPECIFIED 12/20/2016 JEANNETTE BELLO POSITION CLASSIFICATION SPECIALIST Ot R19.7 DIARRHEA, UNSPECIFIED 12/20/2016 JEANNETTE BELLO POSITION CLASSIFICATION SPECIALIST Ot R25.2 CRAMP AND SPASM 12/22/2016 JEANNETTE BELLO POSITION CLASSIFICATION SPECIALIST Ot R11.2 NAUSEA WITH VOMITING, UNSPECIFIED 12/22/2016 JEANNETTE BELLO POSITION CLASSIFICATION SPECIALIST Ot R19.7 DIARRHEA, UNSPECIFIED 12/22/2016 JEANNETTE BELLO POSITION CLASSIFICATION SPECIALIST Ot R25.2 CRAMP AND SPASM 12/22/2016 JEANNETTE BELLO POSITION CLASSIFICATION SPECIALIST Ot R11.2 NAUSEA WITH VOMITING, UNSPECIFIED 12/22/2016 JEANNETTE BELLO POSITION CLASSIFICATION SPECIALIST Ot R19.7 DIARRHEA, UNSPECIFIED 12/22/2016 JEANNETTE BELLO POSITION CLASSIFICATION SPECIALIST Ot R25.2 CRAMP AND SPASM 07/13/2017 Kacey [...] G43.909 MIGRAINE, UNSP, NOT INTRACTABLE, WITHOUT 06/27/2018 BERNPORFRIIO, EDDI Ot G89.29 OTHER CHRONIC PAIN 06/27/2018 [...] ENCOUNTER FOR DISABILITY DETERMINATION 07/18/2018 ECTOR D POSITION CLASSIFICATION SPECIALIST Ot R10.31 RIGHT LOWER QUADRANT PAIN 07/18/2018 ECOTR GR POSITION CLASSIFICATION SPECIALIST Ot Z90.49 ACQUIRED ABSENCE OF OTHER SPECIFIED PART 07/18/2018 SIMÓNECTOR POSITION CLASSIFICATION SPECIALIST Ot Z98.890 OTHER SPECIFIED POSTPROCEDURAL STATES 07/19/2018 [...] FACC, ALI FACP CCDS Ot Z79.899 OTHER USP (CURRENT) DRUG THERAPY 07/22/2018 LUCIA IGNACIO FACC, [...] 45.0-49.9, ADULT 07/22/2018 LUCIA IGNACIO FAC, NICHELLE [facility] CCDS Ot Z79.899 OTHER USP (CURRENT) DRUG THERAPY 08/05/2018 ARMANDO IGNACIO, ARIES Anglin (DDU) Ot Z02.71 ENCOUNTER FOR DISABILITY DETERMINATION 08/05/2018 ECTOR GR Yann POSITION CLASSIFICATION SPECIALIST Ot R10.31 RIGHT LOWER QUADRANT PAIN 08/05/2018 SIMÓN ECTOR D POSITION CLASSIFICATION SPECIALIST Ot Z90.49 ACQUIRED ABSENCE OF OTHER SPECIFIED PART 08/05/2018 JACKIE GRCELINE Lerner POSITION CLASSIFICATION SPECIALIST Ot Z98.890 OTHER SPECIFIED POSTPROCEDURAL STATES 08/08/2018 WIGGINSRICHA KANG POSITION CLASSIFICATION SPECIALIST Ot M79.89 OTHER SPECIFIED SOFT TISSUE DISORDERS 08/08/2018 WIGGINSRICHA KANG POSITION CLASSIFICATION SPECIALIST Ot R60.0 LOCALIZED EDEMA 08/18/2018 WIGGINSRICHA POSITION CLASSIFICATION SPECIALIST Ot M79.89 OTHER SPECIFIED SOFT TISSUE DISORDERS 08/18/2018 WIGGINSRICHA KANG POSITION CLASSIFICATION SPECIALIST Ot R60.0 LOCALIZED EDEMA 08/29/2018 LEONIDES ALFARO [...] YUMIKO Ot F41.9 ANXIETY DISORDER, UNSPECIFIED 09/05/2018 [place] DO, YUMIKO Ot J45.909 UNSPECIFIED ASTHMA, UNCOMPLICATED [...] YUMIKO Ot J45.909 UNSPECIFIED ASTHMA, UNCOMPLICATED 11/08/2018 [facility] DO, YUMIKO Ot K21.9 GASTRO- ESOPHAGEAL REFLUX [...] SPECIFIED POSTPROCEDURAL STATES 11/10/2018 SIMÓN, ECTOR D POSITION CLASSIFICATION SPECIALIST Ot R10.31 RIGHT LOWER QUADRANT PAIN 11/10/2018 SIMÓN, ECTOR D POSITION CLASSIFICATION SPECIALIST Ot Z90.49 ACQUIRED ABSENCE OF OTHER SPECIFIED PART 11/10/2018 SIMÓN, ECTOR D POSITION CLASSIFICATION SPECIALIST Ot Z98.890 OTHER SPECIFIED POSTPROCEDURAL STATES 11/14/2018 KEATON LACY, YUMIKO Ot E03.9 HYPOTHYROIDISM, UNSPECIFIED 11/14/2018 KEATON DO, YUMIKO Ot F32.9 MAJOR DEPRESSIVE DISORDER, SINGLE EPISOD 11/14/2018 KEATON DO, YUMIKO Ot J45.909 UNSPECIFIED ASTHMA, UNCOMPLICATED 11/14/2018 KEATON LACY, YUMIKO Ot K21.9 GASTRO- ESOPHAGEAL REFLUX DISEASE WITHOUT 11/14/2018 KEATON DO, YUMIKO Ot M41.9 SCOLIOSIS, UNSPECIFIED 11/14/2018 KEATON LACY, YUMIKO Ot R10.33 PERIUMBILICAL PAIN 11/14/2018 KEATON LACY, YUMIKO Ot Z87.19 PERSONAL HISTORY OF OTHER DISEASES OF TH 11/14/2018 KEATON LACY, YUMIKO Ot Z87.891 PERSONAL HISTORY OF NICOTINE DEPENDENCE 11/14/2018 KEATON LACY, YUMIKO Ot Z88.1 ALLERGY STATUS TO OTHER ANTIBIOTIC AGENT 11/14/2018 KEATON LACY, YUMIKO Ot Z88.2 ALLERGY STATUS TO SULFONAMIDES STATUS 11/14/2018 KEATON LACY, YUMIKO Ot Z88.8 ALLERGY STATUS TO OTH DRUG/MEDS/BIOL SUB 11/14/2018 KEATON LACY, YUMIKO Ot Z90.49 ACQUIRED ABSENCE OF OTHER SPECIFIED PART 11/14/2018 KEATON LACY, YUMIKO Ot Z90.710 ACQUIRED ABSENCE OF BOTH CERVIX AND UTER 11/14/2018 KEATON LACY, YUMIKO Ot Z98.890 OTHER SPECIFIED POSTPROCEDURAL STATES 12/01/2018 VEGA BAUGH MD, Ot E03.9 HYPOTHYROIDISM, UNSPECIFIED 12/01/2018 VEGA BAUGH MD, Ot F32.9 MAJOR DEPRESSIVE DISORDER, SINGLE EPISOD 12/01/2018 VEGA BAUGH MD Ot G89.29 OTHER CHRONIC PAIN 12/01/2018 VEGA BAUGH MD Ot J45.909 UNSPECIFIED ASTHMA, UNCOMPLICATED 12/01/2018 VEGA BAUGH MD, Ot K21.9 GASTRO-ESOPHAGEAL REFLUX DISEASE WITHOUT 12/01/2018 VEGA BAUGH MD Ot R10.31 RIGHT LOWER QUADRANT PAIN 12/01/2018 VEGA BAUGH MD, Ot Z87.19 PERSONAL HISTORY OF OTHER DISEASES OF TH 12/01/2018 VEGA BAUGH MD, Ot Z87.891 PERSONAL HISTORY OF NICOTINE DEPENDENCE 12/01/2018 VEGA BAUGH MD, Ot Z88.1 ALLERGY STATUS TO OTHER ANTIBIOTIC AGENT 12/01/2018 VEGA BAUGH MD, Ot Z88.2 ALLERGY STATUS TO SULFONAMIDES STATUS 12/01/2018 VEGA BAUGH MD, Ot Z88.8 ALLERGY STATUS TO OTH DRUG/MEDS/BIOL SUB 12/01/2018 VEGA BAUGH MD Ot Z90.49 ACQUIRED ABSENCE OF OTHER SPECIFIED PART 12/01/2018 VEGA BAUGH MD Ot Z90.710 ACQUIRED ABSENCE OF BOTH CERVIX AND UTER 12/01/2018 AMAURI IGNACIO [place] Ot Z98.890 OTHER SPECIFIED POSTPROCEDURAL STATES 12/05/2018 BERNA SPRING MD Ot M19.041 PRIMARY OSTEOARTHRITIS, RIGHT HAND 12/05/2018 BERNA SPRING MD Ot M19.042 PRIMARY OSTEOARTHRITIS, LEFT HAND 12/05/2018 ELAINA RAMÍREZ Ot M12.9 ARTHROPATHY, UNSPECIFIED 12/05/2018 ELAINA RAMÍREZ Ot M51.36 OTHER INTERVERTEBRAL DISC DEGENERATION, Procedures Code Description [place] [address] ROUTINE VENIPUNCTURE 04/06/2014 78607 CBC 04/06/2014 28537 MAMMOGRAM, SCREENING 04/24/2014 45913 PAP SMEAR 04/24/2014 Q0091 PAP SMEAR OBTAIN SMEAR 04/24/2014 42051 ROUTINE VENIPUNCTURE 10/12/2014 16216 US LIVER ULTRASOUND 10/12/2014 14199 CMP 10/12/2014 10120 MAGNESIUM 10/12/2014 64280 TSH 10/12/2014 86942 CBC 10/12/2014 99183 Intravenous infusion, hydration; each ad GISELA RANDOLPH 07/12/2017 60115 Therapeutic, prophylactic, or diagnostic GISELA RANDOLPH 07/12/2017 76260 Therapeutic, prophylactic, or diagnostic GISELA RANDOLPH 07/12/2017 44373 Therapeutic, prophylactic, or diagnostic GISELA RANDOLPH 07/12/2017 65113 Emergency department visit for the evalu GISELA [...] NEG Ketones, UA NEGATIVE mg/dL NEG Specific [place], UA 1.024 1.003-1.030 Blood, UA MODERATE NEG [...] or plasma urea nitrogen/creatinine mass ratio 17 [facility] Serum or plasma creatinine measurement with calculation of estimated glomerular filtration rate 57 [facility] Serum or plasma glucose measurement (mass/volume) 88 [...] INFLUENZA A AND B ANTIGENS BY IA [facility] Automated blood complete blood count (hemogram) panel [...] - 11/28/18 15:10 Lipase 38 U/L 8-78 Complete urinalysis with reflex to culture - 12/04/18 01:19 Urine color determination YELLOW NRG Urine clarity determination SLT CLOUDY NRG Urine pH measurement by test strip 6.0 5-9 Specific gravity of urine by test strip >= 1.016-1.022 Urine protein assay by test strip, [...] NRG Complete urinalysis with reflex to culture YES NRG Bacterial urine culture - 12/04/18 01:19 Bacterial urine culture 3 OR MORE NRG COLONY COUNT 30,000 CFU/ML NRG FTX;REPORTABLE SUGGESTING PROBABLE COLLECTION NRG FREE TEXT ENTRY 2 CONTAMINATION WITH SKIN CHARLES NRG FREE TEXT ENTRY 3 NO SUSCEPTIBILITY PERFORMED NRG Complete blood count (CBC) with automated white blood cell (WBC) differential - 12/04/18 01:25 Blood leukocytes automated count (number/volume) 6.5 10*3/uL 4.3-11.0 Blood erythrocytes automated count (number/volume) 4.24 10*6/uL 4.35-5.85 Venous blood hemoglobin measurement (mass/volume) 13.5 g/dL 11.5-16.0 Blood hematocrit (volume fraction) 40 % 35-52 Automated erythrocyte mean corpuscular volume 94 [foz_us] 80-99 Automated erythrocyte mean corpuscular hemoglobin (mass per erythrocyte) 32 pg 25-34 Automated erythrocyte mean corpuscular hemoglobin concentration measurement (mass/volume) 34 g/dL 32-36 Automated erythrocyte distribution width ratio 12.8 % 10.0- 14.5 Automated blood platelet count (count/volume) 145 10*3/uL 130-400 Automated blood platelet mean volume measurement 11.1 [foz_us] 7.4-10.4 Automated blood neutrophils/100 leukocytes 50 % 42-75 Automated blood lymphocytes/100 leukocytes 37 % 12-44 Blood monocytes/100 leukocytes 9 % 0-12 Automated blood eosinophils/100 leukocytes 3 % 0-10 Automated blood basophils/100 leukocytes 0 % 0-10 Blood neutrophils automated count (number/volume) 3.3 10*3 1.8-7.8 Blood lymphocytes automated count (number/volume) 2.4 10*3 1.0-4.0 Blood monocytes automated count (number/volume) 0.6 10*3 0.0- 1.0 Automated eosinophil count 0.2 10*3/uL 0.0-0.3 Automated blood basophil count (count/volume) 0.0 10*3/uL 0.0-0.1 Comprehensive metabolic panel - 12/04/18 01:25 Serum or plasma sodium measurement (moles/volume) 139 mmol/L 135-145 Serum or plasma potassium measurement (moles/volume) 4.0 mmol/L 3.6-5.0 Serum or plasma chloride measurement (moles/volume) 100 mmol/L 98-107 Carbon dioxide 26 mmol/L 21-32 Serum or plasma anion gap determination (moles/volume) 13 mmol/L 5-14 Serum or plasma urea nitrogen measurement (mass/volume) 18 mg/dL 7-18 Serum or plasma creatinine measurement (mass/volume) 0.84 mg/dL 0.60-1.30 Serum or plasma urea nitrogen/creatinine mass ratio 21 NRG Serum or plasma creatinine measurement with calculation of estimated glomerular filtration rate > NRG Serum or plasma glucose measurement (mass/volume) 112 mg/dL 70-105 Serum or plasma calcium measurement (mass/volume) 9.1 mg/dL 8.5-10.1 Serum or plasma total bilirubin measurement (mass/volume) 0.2 mg/dL 0.1-1.0 Serum or plasma alkaline phosphatase measurement (enzymatic activity/volume) 91 U/L 40-136 Serum or plasma aspartate aminotransferase measurement (enzymatic activity/volume) 24 U/L 5-34 Serum or plasma alanine aminotransferase measurement (enzymatic activity/volume) 35 U/L 0-55 Serum or plasma protein measurement (mass/volume) 6.8 g/dL 6.4-8.2 Serum or plasma albumin measurement (mass/volume) 3.9 g/dL 3.2-4.5 CALCIUM CORRECTED 9.2 mg/dL 8.5-10.1 Lipase - 12/04/18 01:25 Lipase 39 U/L 8-78 Encounters ACCT No. Visit Date/Time Discharge Status Pt. Type Provider Facility Loc./Unit Complaint [id number] 10/12/2014 09:53:00 10/12/2014 23:59:59 CLS Outpatient KIM MITCHELL MD [id number] 06/18/2014 09:06:00 06/18/2014 23:59:59 CLS Outpatient DANIELA JACOBSON DDS [id number] 04/23/2014 15:22:00 04/23/2014 23:59:59 CLS Outpatient KIM MITCHELL MD [id number] 04/23/2014 15:22:00 04/23/2014 23:59:59 CLS Outpatient KIM MITCHELL MD [id number] 04/06/2014 11:00:00 04/06/2014 23:59:59 CLS Outpatient KIM MITCHELL MD [id number] 04/03/2014 17:30:00 04/03/2014 23:59:59 CLS Outpatient KIM MITCHELL MD [id number] 07/12/2017 16:59:00 07/13/2017 00:16:00 DIS Emergency ReyesKacey chester [facility] ER Cardiac [id number] 11/08/2018 11:20:00 11/08/2018 23:59:59 CLS Out[facility] [id number] 05/04/2017 08:40:00 Document Registration [id number] 03/17/2017 09:40:00 Document Registration [id number] 12/05/2018 23:12:00 12/05/2018 23:42:00 DIS Emergency YUMIKO PUGH DO [facility] ER FS ED FS [id number] 12/04/2018 00:02:00 12/04/2018 04:48:00 DIS Emergency LYLA LANGE MD [facility] ER FS ABDOMINAL PAIN [id number] 12/01/2018 11:22:00 12/01/2018 23:59:59 CLS Outpatient CLEMENTINE IGNACIO, BERNA Xie [facility] RAD FS M19.041 M19.042 [id number] 11/28/2018 14:11:00 11/28/2018 17:24:00 DIS Outpatient AMAURI IGNACIO, VEGA [place] [facility] ER FS ABD PAIN [id number] 11/22/2018 22:26:00 11/23/2018 02:10:00 DIS Emergency ELEN POLLACK MD [facility] ER FS ABD PAIN [id number] 11/17/2018 06:59:00 11/17/2018 23:59:59 CLS Preadmit ELAINA RAMÍREZ [facility] SLEEP LYDIA G47.33 [id number] 11/14/2018 12:58:00 11/14/2018 23:59:59 CLS Outpatient ELAINA RAMÍREZ [facility] RAD LUMBAR DEGENERATIVE DISC DISEASE [id number] 11/08/2018 11:39:00 11/08/2018 14:36:00 DIS Emergency PUGH DOYUMIKO [facility] ER FS ABD PAIN [id number] 11/03/2018 02:47:00 11/03/2018 06:00:00 DIS Emergency LYLA LANGE MD [facility] ER FS LIGHT HEADED;HEADACHE [id number] 10/03/2018 22:16:00 10/04/2018 02:50:00 DIS Emergency LYLA LANGE MD [facility] ER FS ABD PAIN [id number] 09/01/2018 16:40:00 09/01/2018 17:08:00 DIS Emergency PUGH DOYUMIKO [facility] ER FS ABD PAIN,SOB [id number] 08/29/2018 12:40:00 08/29/2018 16:10:00 DIS Emergency LEONIDES ALFARO MD [facility] ER FS ABD PAIN [id number] 08/05/2018 14:05:00 08/05/2018 23:59:59 CLS Outpatient RICHA WIGGINS POSITION CLASSIFICATION SPECIALIST [facility] RAD BILATERAL LOWER EXTREMITY EDEMA [id number] 07/19/2018 07:12:00 07/19/2018 13:06:00 DIS Outpatient LUCIA IGNACIO FACC, NICHELLE PIERCE CCDS [facility] CATH CHEST DISCOMFORT,PALPITATIONS,SOB,OBESITY [id number] 07/15/2018 14:57:00 07/15/2018 23:59:59 CLS Outpatient ECTOR GR POSITION CLASSIFICATION SPECIALIST [facility] RAD RLQ ABD PAIN [id number] 07/08/2018 14:13:00 07/08/2018 23:59:59 CLS Preadmit NICHELLE MYERS MD, FACC FACHenna CCDS [facility] CARD CHEST DISCOMFORT,PALPITATIONS,SOB,OBESITY [id number] 07/08/2018 14:13:00 07/08/2018 23:59:59 CLS Preadmit LUCIA IGNACIO FACC, ALI FACP CCDS [facility] CARD CHEST DISCOMFORT,PALPITATIONS,SOB,OBESITY [id number] 07/06/2018 14:48:00 07/06/2018 23:59:59 CLS Outpatient ARIES ROBERTS MD (DDU) [facility] RT ASTHMA [id number] 06/27/2018 18:28:00 06/27/2018 22:02:00 DIS Emergency SOLEDAD RAMIREZIS [facility] ER LETHARGIC,BODY ACHES [id number] 05/14/2017 08:00:00 05/14/2017 23:59:59 CLS Preadmit JASON MOSQUERA [facility] RAD M25.562 ACUTE PAIN OF LEFT KNEE [id number] 12/20/2016 15:40:00 12/20/2016 19:24:00 DIS Emergency JEANNETTE BELLO APRN [facility] ER ABD PAIN [id number] 12/19/2016 21:59:00 12/19/2016 22:41:00 DIS Emergency RADHA AVERY DO [facility] ER L SIDE STOMACH PAIN/HOT FLASHES
== END 2018-12-05 23:42 | disposition home or self-care (01) ==
LOC: EDUNIT# 23:08 → ER FS 23:12
DX: R60.0 Localized edema (principal); R10.31 Right lower quadrant pain; G89.29 Other chronic pain; J45.909 Unspecified asthma, uncomplicated; K21.9 Gastro-esophageal reflux disease without esophagitis; E03.9 Hypothyroidism, unspecified; F32.9 Major depressive disorder, single episode, unspecified; Z87.19 Personal history of other diseases of the digestive system; Z88.2 Allergy status to sulfonamides; Z88.1 Allergy status to other antibiotic agents; Z88.8 Allergy status to other drugs, medicaments and biological substances; Z87.891 Personal history of nicotine dependence; Z90.49 Acquired absence of other specified parts of digestive tract; Z98.890 Other specified postprocedural states; Z90.710 Acquired absence of both cervix and uterus
CPT/HCPCS: 99282

== ENCOUNTER 2018-12-09 19:22 | Outpatient (CLI) | payer MEDICAID | END 2018-12-10 06:30 | disposition home or self-care (01) | LOC: SLEEP 19:22 | PROVIDERS: ATTEND Physician Assistant | DX: G47.33 Obstructive sleep apnea (adult) (pediatric) (principal); G47.00 Insomnia, unspecified | CPT/HCPCS: 95811 ==

== ENCOUNTER → 2018-12-12 | Outpatient (CLI) | payer MEDICAID ==
[~2018-12-12] MED LIST changes: +BARIUM SUSPENSION 60% (LIQUID EZ PAQUE) 240 ML DOSE PO ONE
--- NOTE | 2018-12-12 13:36 | Diagnostic Imaging Report ---
INDICATION: Recurrent ventral hernia. FINDINGS: The preliminary radiograph demonstrates surgical clips in the gallbladder fossa as well as in the right lower quadrant. Abdominal mesh is present. The bowel gas pattern is nonobstructed. Zero minute images demonstrate contrast within the stomach with normal emptying into the proximal small bowel. There is normal progression of contrast through the small bowel to the right colon. The small bowel is nondilated. No obstruction is seen. The mucosal fold pattern is unremarkable. The terminal ileum is unremarkable. IMPRESSION: Unremarkable small bowel study. Dictated by: Dictated on workstation # [id number]
== END ==
LOC: RAD 08:48
PROVIDERS: ATTEND Family Medicine
DX: K43.2 Incisional hernia without obstruction or gangrene (principal); L76.34 Postprocedural seroma of skin and subcutaneous tissue following other procedure
CPT/HCPCS: 74250

== ENCOUNTER 2019-01-08 12:16 | Emergency (ER) | payer MEDICAID ==
[~2019-01-08] VITALS: Ht 170.2 cm; Wt 136.1 kg
[~2019-01-08 12:16] MED LIST changes: -BARIUM SUSPENSION 60% (LIQUID EZ PAQUE) 240 ML DOSE PO ONE
--- OUTSIDE RECORDS SUMMARY | 2019-01-08 12:20 | XMS REPORT | Clinical Summary ---
Author Author [facility] Organization [facility] Address Unknown Phone Unavailable Care Team Providers Care Athletic Training Internship Name Role Phone Gemini Herring MD PCP Source Comments Some departments are not documenting in the electronic medical record. If you d o not see the information that you expected, contact Release of Information in [facility] [employer] Information Management department at [phone] for further assistan ce in locating additional records.[facility] Allergies Comments Active Allergy Reactions Severity Noted Date Celecoxib HEADACHE Low 01/05/2019 Agitation, "crawling out of my skin" Prochlorperazine ANXIETY Low 12/01/2016 Edisylate Hydroxychloroquine ANXIETY Low 01/04/2017 Sulfa (Sulfonamide NAUSEA AND Low [...] 4 hours as needed for Pain Active levothyroxine sodium Take by 0 (LEVOTHYROXINE PO) mouth. Active gabapentin (NEURONTIN) Take 300 mg 0 300 mg capsule by mouth every 8 hours. Active Problems Problem Noted Date Urinary hesitancy 01/05/2017 Ventral incisional hernia without obstruction or gangrene 01/05/2017 Dysuria 01/05/2017 Gastroenteritis 12/23/2016 Chest pain 11/29/2016 Morbid obesity due to excess calories 11/29/2016 Gastroesophageal reflux disease without esophagitis 11/29/2016 Odynophagia 11/29/2016 Hypokalemia 11/29/2016 Encounters Care Team Description Date Type Specialty Berbel, Mongolian, DO Abdominal wall seroma, initial encounter (Primary Dx) 01/05/2019 Office Visit General Surgery 12/12/2018 Hospital Radiology Encounter 12/04/2018 Hospital Radiology Encounter 11/28/2018 Hospital Radiology Encounter 11/23/2018 Hospital Radiology Encounter 11/08/2018 Hospital Radiology Encounter from Last 3 Months Social History Date Tobacco Use Types Packs/Day Years Used Former Smoker Smokeless Tobacco: Never Used Comments: quit 20 years ago Drinks/Week oz/Week Comments Alcohol Use very rare No Sex Assigned at Date Recorded Not on file Industry Job Start Date Occupation Not on file Not on file Not on file Travel End Travel History Travel Start No recent travel history available. Last Filed Vital Signs Reading Time Taken Comments Vital Sign 126/78 01/05/2019 10:02 AM CDT Blood Pressure 78 01/05/2019 10:02 AM CDT Pulse 36.6 C (97.8 F) 01/05/2019 10:02 AM CDT Temperature 18 01/05/2019 10:02 AM CDT Respiratory Rate 99% 01/05/2019 10:02 AM CDT Oxygen Saturation - - Inhaled Oxygen Concentration 149.2 kg (329 lb) 01/05/2019 10:02 AM CDT Weight 170.2 cm (5' 7") 01/05/2019 10:02 AM CDT Height 51.53 01/05/2019 10:02 AM CDT Body Mass Index Plan of Treatment Health Maintenance Due Date Last Done Comments PHYSICAL (COMPREHENSIVE) 1976 EXAM HIV SCREENING 1984 DTAP/TDAP VACCINES (1 - 1987 Tdap) CERVICAL CANCER SCREENING 1999 BREAST CANCER SCREENING 2009 INFLUENZA VACCINE 03/28/2019 Procedures Comments Procedure Name Priority Date/Time Associated Diagnosis GENERAL RAD ABDOMEN Routine 12/12/2018 EXTERNAL IMAGING 8:55 AM CDT GENERAL RAD CHEST Routine 12/04/2018 EXTERNAL IMAGING 1:00 AM CDT GENERAL RAD CHEST Routine 11/28/2018 EXTERNAL IMAGING 2:[address] ABD/PEL EXTERNAL Routine 11/23/2018 IMAGING 12:[address] ABD/PEL EXTERNAL Routine 11/08/2018 IMAGING 1:15 PM CDT from Last 3 Months Results * GENERAL RAD ABDOMEN EXTERNAL IMAGING (12/12/2018 8:55 AM CDT) Specimen Narrative Performed At This order has been auto finalized and does not contain a result. * GENERAL RAD CHEST EXTERNAL IMAGING (12/04/2018 1:00 AM CDT) Only the most recent of 2 results within the time period is included. Specimen Narrative Performed At This order has been auto finalized and does not contain a result. * CT ABD/PEL EXTERNAL IMAGING (11/23/2018 12:55 AM CDT) Only the most recent of 2 results within the time period is included. Specimen Narrative Performed At This order has been auto finalized and does not contain a result. from Last 3 Months Insurance Type Payer Benefit Subscriber ID Effective Phone Address Plan / Dates Group Medicaid UHC MEDICAID [place] UHC xxxxxxxxxxx [id number] [employer] [place]AN [place] Advance Directives Patient Management Intern Explanation Type Date Recorded Advance 11/28/2016 11:49 PM Directive/DPOA Date Inactivated Comments Code Status Date Activated 12/25/2016 7:37 PM Full Code 12/23/2016 2:04 AM Provider has discussed Code Status Yes w/Patient or Family? 12/02/2016 2:44 PM Full Code 11/29/2016 5:17 AM Provider has discussed Code Status Yes w/Patient or Family?
--- OUTSIDE RECORDS SUMMARY | 2019-01-08 12:20 | XMS REPORT | Encounter Summary ---
Author Author [facility] Organization [facility] Address Unknown Phone Unavailable Care Team Providers Care Fire Systems Inspector Name Role Phone Gemini Herring MD PCP Encounter Details Care Team Description Date Type Department 12/12/[address] [facility] [address] [address] Social History Date Tobacco Use Types Packs/Day Years Used Former Smoker Smokeless Tobacco: Never Used Comments: quit 20 years ago Drinks/Week oz/Week Comments Alcohol Use very rare No Sex Assigned at Date Recorded Not on file Industry Job Start Date Occupation Not on file Not on file Not on file Travel End Travel History Travel Start No recent travel history available. documented as of this encounter Functional Status Date of Assessment Functional Status Response 07/29/2017 Does the patient have a hearing impairment: No documented as of this encounter Medications at Time of Discharge Start Date End Date Medication Sig Dispensed Refills 12/25/2016 acetaminophen (TYLENOL) Take 2 Tabs 0 325 mg tablet by mouth every 4 hours as needed. Max of 4000mg (4g) per day of acetaminophen (Tylenol) from all sources cholecalciferol (VITAMIN Take 1,000 0 D-3) 1,000 units tablet Units by mouth daily. coenzyme Q10(+) 100 mg Take 100 mg 0 cap by mouth daily. furosemide (LASIX) 40 mg Take 40 mg by 0 tablet mouth every morning. 12/25/2016 loperamide (IMODIUM A-D) For fecal 30 Cap 0 2 mg capsule incontinence Multivitamin Cmb Take 1 Tab by 0 No.21-Iron-FA (CENTRUM mouth daily WOMEN) 18-400 mg-mcg tab with breakfast. 12/21/2016 ondansetron (ZOFRAN ODT) Dissolve 1 6 Tab 0 4 mg rapid dissolve Tab by mouth tablet every 8 hours as needed for Nausea or Vomiting. Place on tongue to disolve. 07/28/2017 oxyCODONE (ROXICODONE, Take 1 tablet 10 tablet 0 OXY-IR) 5 mg tablet by mouth every 4 hours as needed for Pain 12/02/[address] Take 1 Tab by 30 Tab 1 (PROTONIX) 40 mg tablet mouth daily. spironolactone Take 50 mg by 0 (ALDACTONE) 50 mg tablet mouth twice daily. Take with food. 12/25/2016 traMADol (ULTRAM) 50 mg Take 1-2 Tabs 30 Tab 0 tablet by mouth every 6 hours as needed. traZODone (DESYREL) 150 Take 150 mg 0 mg tablet by mouth at bedtime as needed. venlafaxine (EFFEXOR) 75 Take 75 mg by 0 mg tablet mouth twice daily with meals. documented as of this encounter Plan of Treatment Not on filedocumented as of this encounter Procedures Comments Procedure Name Priority Date/Time Associated Diagnosis GENERAL RAD ABDOMEN Routine 12/12/2018 EXTERNAL IMAGING 8:55 AM CDT documented in this encounter Results * GENERAL RAD ABDOMEN EXTERNAL IMAGING (12/12/2018 8:55 AM CDT) Specimen Narrative Performed At This order has been auto finalized and does not contain a result. documented in this encounter Visit Diagnoses Not on filedocumented in this encounter
--- OUTSIDE RECORDS SUMMARY | 2019-01-08 12:20 | XMS REPORT | Encounter Summary ---
Author Author [facility] Organization [facility] Address Unknown Phone Unavailable Care Team Providers Care Gas And Oil Checker Name Role Phone Gemini Herring MD PCP Reason for Referral * Radiology Services (Routine) Referred By Contact Referred To Contact Status Reason Specialty Diagnoses / [place] [address] [place] [address] New Request Radiology Diagnoses Abdominal wall seroma, initial encounter P rocedures IR ASPIRATION/DRAIN Reason for Visit * Reason Comments New Patient NEW PT CHRONIC ABDOMINAL PAIN * Consult, Test & Treat (Routine) Referred By Contact Referred To Contact Status Reason Specialty Diagnoses / Procedures Harry Valentine DO [address] [place] [address] [facility] Surgery [address] [place] [phone] New Request General Surgery Diagnoses Chronic abdominal pain, unresolvable Procedures Consult Encounter Details Care Team Description Date [place] [address] [place] [address] [phone] Abdominal wall seroma, initial encounter (Primary Dx) 01/05/2019 Office Visit [facility] [address] [place] [address] Social History Date Tobacco Use Types Packs/Day [...] history available. documented as of this encounter Last Filed Vital Signs Reading Time Taken [...] 01/05/2019 10:02 AM CDT Body Mass Index documented in this encounter Functional Status Date of Assessment Functional Status Response 01/05/2019 Does the patient have a hearing impairment: No 01/05/2019 Does the patient have a visual impairment: Yes 01/05/2019 Does the patient have impaired ambulation: No 01/05/2019 Does the patient have an activity of daily living No (ADL) impairment: 01/05/2019 Does the patient have an instrumental activity of No daily living (IADL) impairment: documented as of this encounter Plan of Treatment Order Schedule Name Type Priority Associated Diagnoses Expected: 01/05/2019 (Approximate), Expires: 01/06/2020 IR ASPIRATION/DRAIN Imaging Routine Abdominal wall seroma, initial encounter documented as of this encounter Visit Diagnoses Diagnosis Abdominal wall seroma, initial encounter - Primary documented in this encounter
--- OUTSIDE RECORDS SUMMARY | 2019-01-08 12:21 | XMS REPORT | Encounter Summary ---
Author Author [facility] Organization [facility] Address Unknown Phone Unavailable Care Team Providers Care Aerodynamicist Name Role Phone Gemini Herring MD PCP Encounter Details Care Team Description Date Type Department 11/08/2018 Hospital [facility] [address] [address] Social History Date Tobacco Use [...] Comments Procedure Name Priority Date/Time Associated Diagnosis CT ABD/PEL EXTERNAL Routine 11/08/2018 IMAGING 1:15 PM CDT documented in this encounter Results * CT ABD/PEL EXTERNAL IMAGING (11/08/2018 1:15 PM CDT) Specimen Narrative Performed At This order has been auto finalized and does not contain a result. documented in this encounter Visit Diagnoses Not on filedocumented in this encounter
--- OUTSIDE RECORDS SUMMARY | 2019-01-08 12:21 | XMS REPORT | Encounter Summary ---
Author Author [facility] Organization [facility] Address Unknown Phone Unavailable Care Team Providers Care Top Lift And Automatic Window Repairer Name Role Phone Gemini Herring MD PCP Encounter Details Care Team Description Date Type Department 11/28/2018 Hospital [facility] Encounter [facility] [address] [address] Social History Date Tobacco Use [...] Name Priority Date/Time Associated Diagnosis GENERAL RAD CHEST Routine 11/28/2018 EXTERNAL IMAGING 2:20 PM CDT documented in this encounter Results * GENERAL RAD CHEST EXTERNAL IMAGING (11/28/2018 2:20 PM CDT) Specimen Narrative Performed At This order has been auto finalized and does not contain a result. documented in this encounter Visit Diagnoses Not on filedocumented in this encounter
--- OUTSIDE RECORDS SUMMARY | 2019-01-08 12:21 | XMS REPORT | Encounter Summary ---
Author Author [facility] Organization [facility] Address Unknown Phone Unavailable Care Team Providers Care Child Psychiatrist Name Role Phone Gemini Herring MD PCP Encounter Details Care Team Description Date Type Department 11/23/2018 Hospital [facility] En[facility] [address] [address] Social History Date Tobacco Use [...] Date/Time Associated Diagnosis CT ABD/PEL EXTERNAL Routine 11/23/2018 IMAGING 12:55 AM CDT documented in this encounter Results * CT ABD/PEL EXTERNAL IMAGING (11/23/2018 12:55 AM CDT) Specimen Narrative Performed At This order has been auto finalized and does not contain a result. documented in this encounter Visit Diagnoses Not on filedocumented in this encounter
--- OUTSIDE RECORDS SUMMARY | 2019-01-08 12:21 | XMS REPORT | Encounter Summary ---
Author Author [facility] Organization [facility] Address Unknown Phone Unavailable Care Team Providers Care Glass Artist Name Role Phone Gemini Herring MD PCP Encounter Details Care Team Description Date Type Department 12/04/2018 Hospital [facility] [address] [address] Social History Date Tobacco Use [...] Date/Time Associated Diagnosis GENERAL RAD CHEST Routine 12/04/2018 EXTERNAL IMAGING 1:00 AM CDT documented in this encounter Results * GENERAL RAD CHEST EXTERNAL IMAGING (12/04/2018 1:00 AM CDT) Specimen Narrative Performed At This order has been auto finalized and does not contain a result. documented in this encounter Visit Diagnoses Not on filedocumented in this encounter
--- OUTSIDE RECORDS SUMMARY | 2019-01-08 12:21 | XMS REPORT ---
Author Author Migration, Doctor Organization [facility] Address Unknown Phone Unavailable Care Team Providers Care Chef De Cuisine Name Role Phone Migration, Doctor Unavailable Unavailable PROBLEMS Type Condition ICD9-CM Code GDH49-ZB Code Onset Dates Condition Status SNOMED Code Problem Benign essential hypertension I10 Active 5054796 Problem Allergic rhinitis, unspecified allergic rhinitis type J30.9 Active 45068997 Problem Postablative hypothyroidism E89.0 Active 340715466 Problem Other hyperlipidemia E78.49 Active 22423056 Problem Moderate episode of recurrent major depressive disorder F33.1 Active 33271823 Problem Lumbar degenerative disc disease M51.36 Active 17084266 Problem Renal insufficiency N28.9 Active 024044404 Problem Difficulty concentrating R41.840 Active 15812557 Problem Fatigue, unspecified type R53.83 Active 04559946 Problem Other chronic pain G89.29 Active 46071310 Problem Irregular heart rhythm I49.9 Active 038993712 Problem Major depression F32.9 Active 673971341 Problem ADHD, predominantly inattentive type F90.0 Active 51397357 Problem Positive urine drug screen R82.5 Active 120129748 Problem Insomnia G47.00 Active 343262598 Problem Chronic pain syndrome G89.4 Active 490534306 Problem Anxiety F41.9 Active 14986983 Problem Primary osteoarthritis of left knee M17.12 Active 034065132365859 Problem Degenerative disc disease, lumbar M51.36 Active 09484302 Problem Arthritis, multiple joint involvement M12.9 Active 07609206231091 Problem Uncomplicated asthma, unspecified asthma severity, unspecified whether persistent J45.909 Active 33603160 ALLERGIES No Information ENCOUNTERS Encounter Location Date Diagnosis [address] [address] Nov, [address] [address] 14 Nov, 2018 Lower abdominal pain R10.30 ; Other specified postprocedural states Z98.890 ; Personal history of other diseases of the digestive system Z87.19 and Morbid obesity E66.01 [facility] [address] [facility] [id number] [address] October, [facility] [address] [place] [address] October, [facility] [address] [place] [address] October, Chronic pain syndrome G89.4 [facility] [address] [place] [address] October, [facility] [address] [place] [address] October, [facility] [address] [place] [address] October, Right lower quadrant abdominal pain R10.31 [facility] [address] [facility] [id number][place] [address] October, [facility] [address] [place] [address] October, [facility] [address] [place] [address] October, [facility] [address] [place] [address] Sep, [facility] [address] [place] [address] Sep, Chronic pain syndrome G89.4 [facility] [address] [place] [address] Sep, Chronic pain syndrome G89.4 [facility] [address] [address] Sep, Witnessed apneic spells R06.81 ; Loud snoring R06.83 ; Chronic fatigue R53.82 and Chronic pain syndrome G89.4 [facility] [address] [facility] [id number], [place] [address] Sep, [facility] [address] [facility] [place] [address] Sep, Acute nonintractable headache, unspecified headache type R51 and Morbid obesity E66.[address] [place] [address] Sep, Morbid obesity E66.01 ; Bilateral leg edema R60.0 ; Pain of left leg M79.605 ; Pain in right leg M79.604 ; Generalized abdominal pain R10.84 and Lumbar back pain M54.5 [place] [address] [address] Sep, Acute pain of left knee M25.562 and Primary osteoarthritis of left knee M17.[address] [place] [address] Aug, [address] [place] [address] Aug, [address] [address] Aug, [address] [place] [address] Aug, Arthritis, multiple joint involvement M12.9 ; Abdominal wall seroma, subsequent encounter S30.1XXD ; Degenerative disc disease, lumbar M51.36 and Chronic pain syndrome G89.[address] [place] [address] Aug, Morbid obesity E66.01 and Abdominal wall pain R10.[address] [address] Aug, Abdominal wall pain R10.9 ; Abdominal wall seroma, initial encounter S30.1XXA and Leg edema R60.0 [place] [address] [id number] [address] Jul, Acute pain of left knee M25.562 [place] [address] [id number] [address] Jul, [address] [address] Jul, Bilateral lower extremity edema R60.0 ; Pain of left leg M79.605 ; Pain in right leg M79.604 ; BMI 45.0-49.9, adult Z68.42 and Morbid obesity E66.01 [facility] [place] [facility] [address] [facility] [address] Jul, BMI 50.0-59.9, adult Z68.43 ; Swelling of lower extremity M79.89 and Irregular heart rhythm I49.9 [facility] [address] [place] [id number] [place] [address] Jun, [facility] [address] [place] [id number] [place] [address] Jun, [facility] [address] [place] [id number] [place] [address] Jun, [facility] [address] [place] [id number] [place] [address] Jun, Primary insomnia F51.01 [facility] [address] [place] [id number] [place] [address] Jun, [facility] [address] [place] [id number] [place] [address] Jun, BMI 45.0-49.9, adult Z68.42 ; Acquired hypothyroidism E03.9 ; Fatigue, unspecified type R53.83 ; Palpitations R00.2 ; Right lower quadrant abdominal pain R10.31 and Morbid obesity E66.01 [facility] [address] [place] [id number] [place] [address] May, [facility] [address] [place] [address] [place] [address] May, Acquired hypothyroidism E03.9 [facility] [address] [place] [address] [place] [address] May, [facility] [address] [place] [address] [place] [address] Apr, Acquired hypothyroidism E03.9 [facility] [address] [place] [id number] [place] [address] Mar, Acquired hypothyroidism E03.9 ; Skin tag L91.8 and BMI 45.0-49.9, adult Z68.42 [facility] [address] [place] [address] [place] [address] Dec, [facility] [address] [place] [id number] [place] [address] Nov, Edema, unspecified type R60.9 [facility] [address] [place] [id number] [place] [address] Nov, Postablative hypothyroidism E89.0 [place] [address] [place] [address] [place] [address] Nov, [place] [address] [place] [id number] [place] [address] Nov, Generalized abdominal pain R10.84 ; History of abdominal hernia Z87.19 ; Pain of left calf M79.662 and BMI 45.0-49.9, adult Z68.42 [place] [address] [place] [address] [place] [address] Sep, [place] [address] [place] [address] [place] [address] Sep, [place] [address] [place] [address] [place] [address] Sep, Postablative hypothyroidism E89.0 ; Pain in left knee M25.562 ; Edema, unspecified type R60.9 ; Multiple joint pain M25.50 and BMI 45.0-49.9, adult Z68.42 [place] [address] [place] [id number] [place] [address] Aug, [facility] [address] [place] [id number] [place] [address] 12 Jul, 2017 History of swelling of feet Z87.39 [facility] [address] [place] [id number] [place] [address] Jul, [facility] [address] [place] [address] Jul, Pain in left knee M25.562 ; Other chronic pain G89.29 and BMI 45.0- 49.9, adult Z68.42 [facility] [address] [place] [id number] [place] [address] Jun, [facility] [address] [address] Jun, [facility] [address] [place] [id number] [place] [address] May, Primary insomnia F51.01 [facility] [address] [address] Apr, [facility] [address] [place] [id number] [place] [address] Apr, [facility] [address] [place] [address] [place] [address] Apr, Acute pain of left knee M25.562 ; Renal insufficiency N28.9 ; Fatigue, unspecified type R53.83 ; Postablative hypothyroidism E89.0 and BMI 40.0-44.9, adult Z68.41 [facility] [address] [place] [address] [place] [address] Mar, Acute pain of left knee M25.562 [facility] [address] [place] [id number] [place] [address] Feb, Renal insufficiency N28.9 [facility] [address] [place] [id number] [place] [address] Feb, [facility] [address] [place] [id number] [place] [address] Feb, [facility] [address] [place] [id number] [place] [address] Feb, [place] [address] [place] [id number] [place] [address] Feb, Renal insufficiency N28.9 ; ADHD, predominantly inattentive type F90.0 ; Postablative hypothyroidism E89.0 ; Primary insomnia F51.01 ; Difficulty concentrating R41.840 ; History of swelling of feet Z87.39 ; Chronic pain syndrome G89.4 and Moderate episode of recurrent major depressive disorder F33.1 [facility] [address] [place] [id number] [place] [address] Feb, [facility] [address] [place] [id number] [place] [address] Feb, [facility] [address] [address] Jan, ADHD, predominantly inattentive type F90.0 [place] [address] [place] [id number] [place] [address] Jan, Renal insufficiency N28.9 ; Postablative hypothyroidism E89.0 and History of swelling of feet Z87.39 [place] [address] [place] [address] [place] [address] Jan, Chronic pain syndrome G89.4 [facility] [address] [place] [id number] [place] [address] Jan, [facility] [address] [place] [id number] [place] [address] Jan, Renal insufficiency N28.9 ; Primary insomnia F51.01 ; Difficulty concentrating R41.840 ; Postablative hypothyroidism E89.0 ; History of swelling of feet Z87.39 ; Chronic pain syndrome G89.4 and Moderate episode of recurrent major depressive disorder F33.1 [facility] [address] [place] [id number] [place] [address] Jan, [facility] [address] [place] [id number] [place] [address] Jan, Candidal dermatitis B37.2 [facility] [address] [address] Dec, [facility] [address] [id number] [address] Dec, [facility] [address], [place] [address] Dec, [facility] [address] [place] [id number] [place] [address] Dec, Stool color black K92.1 [facility] [address] [place] [id number] [place] [address] Dec, Diarrhea of presumed infectious origin A09 [facility] [address] [place] [address] Dec, Right lower quadrant abdominal pain R10.31 and Stool color black K92.1 [facility] [address] [place] [id number], [place] [address] Nov, [facility] [address] [place] [id number] [place] [address] Nov, Visit for TB skin test Z11.1 and Pre-employment examination Z02.1 [place] [address], [place] [address] Nov, [facility] [id number], [place] [address] October, [facility] [id number], [place] [address] October, [facility] [address] [place] [id number] [place] [address] Aug, [facility] [id number] [place] [address] Aug, Other fatigue R53.83 ; BMI 45.0-49.9, adult Z68.42 ; Edema, unspecified type R60.9 ; Benign essential hypertension I10 and Lumbar degenerative disc disease M51.36 [facility] [address] [place] [id number] [place] [address] 08 Aug, 2016 Skin tag L91.8 [facility] [address] [place] [id number] [place] [address] 06 Aug, 2016 Abnormal laboratory test result R89.9 [facility] [address] [place] [id number] [place] [address] Jul, Insomnia, unspecified type G47.00 [facility] [address] [address] Jul, Benign essential hypertension I10 ; BMI 45.0-49.9, adult Z68.42 ; Lumbar degenerative disc disease M51.36 ; Edema, unspecified type R60.9 ; Other fatigue R53.83 and Hypothyroidism, unspecified type E03.9 [facility] [address] [place] [id number] [place] [address] Jul, [facility] [address] [place] [id number] [place] [address] Jul, Benign essential hypertension I10 ; BMI 45.0-49.9, adult Z68.42 ; Lumbar degenerative disc disease M51.36 ; Edema, unspecified type R60.9 ; Other fatigue R53.83 and Hypothyroidism, unspecified type E03.9 [facility] [address] [place] [id number] [place] [address] Jun, [facility] [address] [place] [id number] [place] [address] Jun, [facility] [address] [place] [id number] [place] [address] Jun, Benign essential hypertension I10 ; Hypothyroidism, unspecified type E03.9 ; Other fatigue R53.83 ; Midline low back pain without sciatica, unspecified chronicity M54.5 and BMI 45.0-49.9, adult Z68.42 [place] [address] [place] [id number] Jun, Postablative hypothyroidism E89.0 ; Rhinopharyngitis J00 and Encounter for immunization Z23 [place] [address] [place] [id number] Jun, [address] [id number] May, [facility] [address] [address] May, [place] [address] [place] [id number] May, [place] [address] [place] [address] [id number] Apr, Hypothyroidism, unspecified type E03.9 [place] [address] [place] [address] [id number] Apr, Hypothyroidism, unspecified type E03.9 [place] [address] [place] [address] [id number] Apr, [place] [address] [place] [address] [id number] Mar, Hypothyroidism, unspecified type E03.9 ; Moderate single current episode of major depressive disorder F32.1 ; Other hyperlipidemia E78.49 and Elevated liver function tests R79.89 [facility] [id number] [id number] Feb, [place] [address] [place] [id number] Dec, Moderate single current episode of major depressive disorder F32.1 [place] [address] [place] [address] [phone] Nov, [facility] [address]65100[place] [id number] Nov, [facility] [address] [id number] [phone] Nov, Hypothyroidism, unspecified type E03.9 ; Other hyperlipidemia E78.49 and Elevated liver function tests R79.89 [place] [address] [place] [id number] [place] [address] [id number] Nov, 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 ; Hypothyroidism, unspecified type E03.9 ; Benign essential hypertension I10 and Uncomplicated asthma, unspecified asthma severity J45.909 [place] [address] [place] [address] [id number] Nov, 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 ; Hypothyroidism, unspecified type E03.9 ; Benign essential hypertension I10 and Uncomplicated asthma, unspecified asthma severity J45.909 [place] [address] [place] [address] [place] [address] [id number] October, [place] [address] [place] [address] [id number] October, [place] [address] [place] [address] [id number] October, Abnormal laboratory test result R89.9 [place] [address] [place] [address] [id number] October, Status post bilateral oophorectomy Z90.722 [place] [address]00565100[place] [id number] Sep, [place] [address] [place] [address] [id number] Aug, [place] [address] Aug, Complex ovarian cyst N83.[address]100[place] [id number] Aug, Other acute sinusitis, recurrence not specified J01.80 [place] [address] [place] [address] [id number] Aug, [facility] [address] [place] [id number] [place] [address] Jun, [place] [address] [place] [address] [id number] Jun, [place] [address] [place] [address] [id number] May, Allergic rhinitis, unspecified allergic rhinitis type J30.9 [facility] [address] [place] [address] May, [place] [address] [place] [address] [id number] Mar, [place] [address] [place] [address] [id number] Mar, [place] [address] [place] [address] [id number] Jan, Hypothyroidism 244.9 and Cyst in hand 727.43 [place] [address] [place] [address] [id number] Jan, [place] [address] [place] [address] [id number] Dec, [place] [address] [place] [address] [id number] Dec, Acute sinusitis 461.9 and Cough 786.2 [place] [address] [place] [address] [id number] Dec, Insect bite 919.4 [facility] [address] [place] [address] [id number] Nov, [facility] [id number] [id number] Nov, [facility] [address] [place] [address] [place] [address] [id number] Sep, Obesity, morbid 278.01 ; Sleep apnea, obstructive 327.23 and Fatigue due to sleep pattern disturbance 780.79 [facility] [address] [address] Sep, [facility] [address] [id number] [place] [address] Sep, [facility] [address] [place] [address] [place] [address] [id number] Aug, [facility] [address] [place] [id number] [place] [address] Aug, [place] [address] [place] [address] [id number] Jul, [facility] [address] [place] [id number] [place] [address] Jul, [facility] [address] [place] [id number] [place] [address] Jul, [address]65100[place] [id number] Jul, [place] [address] [place] [address] [id number] Jun, [facility] [address] [place] [address] Jun, [place] [address] [place] [address] [id number] May, [facility] [address]100[place], [place] [address] May, [facility] [address] [place] [address] 8[place]65100[place], [place] [address] Mar, [facility] [address], [place] [address] Mar, [facility] [address], [place] [address] Mar, [address]65100[place], [place] [id number] Mar, [facility] [address] [address], [place] [address] Mar, [facility] [address] [id number] [place] [address] Mar, [facility] [id number] [place] [address] Mar, [place] [id number] [place] [address] [id number] Mar, [facility] [address], [place] [address] Mar, [place] [id number] [phone] Mar, [facility] [address], [place] [address] Mar, IMMUNIZATIONS No Known Immunizations SOCIAL HISTORY Never Assessed REASON FOR VISIT PLAN OF CARE VITAL SIGNS Height 67.5 in 2014-08-22 Weight 285.8 lbs 2014-08-22 Temperature 98.1 degrees Fahrenheit 2014-08-22 Heart Rate 80 bpm 2014-08-22 Respiratory Rate 20 2014-08-22 Blood pressure systolic 118 mmHg 2014-08-22 Blood pressure diastolic 78 mmHg 2014-08-22 MEDICATIONS Unknown Medications RESULTS No Results PROCEDURES Procedure Date Ordered Result Body Site THER/PROPH/DIAG INJ, SC/IM Aug 22, 2014 INJ METHYLPRDNISLN SODIM TO 125 MG Aug 22, 2014 MEASURE BLOOD OXYGEN LEVEL Aug 22, 2014 INSTRUCTIONS MEDICATIONS ADMINISTERED No Known Medications MEDICAL (GENERAL) HISTORY Type Description Date Medical History Insomnia Medical History Anxiety Medical History Benign essential hypertension Medical History Uncomplicated asthma, unspecified asthma severity, unspecified whether persistent Medical History Allergic rhinitis, unspecified allergic rhinitis type Medical History Postablative hypothyroidism Medical History Major depression Medical History Lumbar degenerative disc disease Medical History Renal insufficiency Medical History Difficulty concentrating Medical History Chronic pain syndrome Medical History Positive urine drug screen Medical History Arthritis, multiple joint involvement Medical History ADHD, predominantly inattentive type Medical History Irregular heart rhythm Surgical History appendectomy Surgical History tonsillectomy and [...] [facility]- Diarrhea/abdominal pain 11/2016 Hospitalization History [facility] for heart beating funny 03/2018
[2019-01-08 12:22] VITALS: BP 137/70
--- OUTSIDE RECORDS SUMMARY | 2019-01-08 12:22 | XMS REPORT ---
Author Author Migration, Doctor Organization [facility] Address Unknown Phone Unavailable Care Team Providers Care Music Cataloguer Name Role Phone Migration, Doctor Unavailable Unavailable PROBLEMS Type Condition ICD9-CM Code CII43-XD Code Onset Dates Condition Status SNOMED Code Problem Benign essential hypertension I10 Active 2149960 Problem Allergic rhinitis, unspecified allergic rhinitis type J30.9 Active 54472491 Problem Postablative hypothyroidism E89.0 Active 949502444 Problem Other hyperlipidemia E78.49 Active 70461290 Problem Moderate episode of recurrent major depressive disorder F33.1 Active 87686996 Problem Lumbar degenerative disc disease M51.36 Active 72356070 Problem Renal insufficiency N28.9 Active 121405937 Problem Difficulty concentrating R41.840 Active 25156439 Problem Fatigue, unspecified type R53.83 Active 06043432 Problem Other chronic pain G89.29 Active 94483977 Problem Irregular heart rhythm I49.9 Active 617963654 Problem Major depression F32.9 Active 649699931 Problem ADHD, predominantly inattentive type F90.0 Active 49713304 Problem Positive urine drug screen R82.5 Active 903053495 Problem Insomnia G47.00 Active 299075379 Problem Chronic pain syndrome G89.4 Active 774666010 Problem Anxiety F41.9 Active 36255202 Problem Primary osteoarthritis of left knee M17.12 Active 451434862784648 Problem Degenerative disc disease, lumbar M51.36 Active 30222464 Problem Arthritis, multiple joint involvement M12.9 Active 81645786316257 Problem Uncomplicated asthma, unspecified asthma severity, unspecified whether persistent J45.909 Active 85410699 ALLERGIES Substance Reaction Event Type Date Status Sulfa (sulfonamide Antibiotics) Unknown Non Drug Allergy Sep, Active Tetracyclines Unknown Non Drug Allergy Sep, Active ENCOUNTERS Encounter Location Date Diagnosis [facility] [address] [facility] [id number] [place] [address] Nov, [address] [address] Nov, [facility] [address] [address] Nov, Lower abdominal pain R10.30 ; Other specified postprocedural states Z98.890 ; Personal history of other diseases of the digestive system Z87.19 and Morbid obesity E66.01 [facility] [address] [facility] [id number] [address] October, [facility] [address] [address] October, [facility] [place] [address] [address] October, Chronic pain syndrome G89.4 [facility] [address] [place] [address] October, [facility] [place] [address] [address] October, [facility] [place] [address] [address] October, Right lower quadrant abdominal pain R10.31 [facility] [address] [facility] [id number], [place] [address] October, [facility] [address] [address] October, [facility] [address] [address] October, [facility] [address] [address] Sep, [facility] [place] [address] [address] Sep, Chronic pain syndrome G89.4 [facility] [address] [address] Sep, Chronic pain syndrome G89.4 [facility] [place] [address] [address] Sep, Witnessed apneic spells R06.81 ; Loud snoring R06.83 ; Chronic fatigue R53.82 and Chronic pain syndrome G89.4 [facility] [address] [facility] [id number], [place] [address] Sep, [facility] [address] [facility] [place] [place] [address] Sep, Acute nonintractable headache, unspecified headache type R51 and Morbid obesity E66.01 [facility] N[place] [address] [address] Sep, Morbid obesity E66.01 ; Bilateral leg edema R60.0 ; Pain of left leg M79.605 ; Pain in right leg M79.604 ; Generalized abdominal pain R10.84 and Lumbar back pain M54.5 [facility] [address] [facility] [id number], [place] [address] Sep, Acute pain of left knee M25.562 and Primary osteoarthritis of left knee M17.12 [facility] N[place] [address] [address] Aug, [address] [address] Aug, [address] [address] Aug, [address] [address] Aug, Arthritis, multiple joint involvement M12.9 ; Abdominal wall seroma, subsequent encounter S30.1XXD ; Degenerative disc disease, lumbar M51.36 and Chronic pain syndrome G89.[address] [address] Aug, Morbid obesity E66.01 and Abdominal wall pain R10.[address] [address] 08 Aug, 2018 Abdominal wall pain R10.9 ; Abdominal wall seroma, initial encounter S30.1XXA and Leg edema R60.0 [facility] [address] [facility] [id number], [place] [address] Jul, Acute pain of left knee M25.562 [facility] [address] [facility] [id number][place] [address] Jul, [facility] [place] MAIN [address] [place] [address] [place] [address] Jul, Bilateral lower extremity edema R60.0 ; Pain of left leg M79.605 ; Pain in right leg M79.604 ; BMI 45.0-49.9, adult Z68.42 and Morbid obesity E66.01 [facility] [address] [facility] [place] [address] Jul, BMI 50.0-59.9, adult Z68.43 ; Swelling of lower extremity M79.89 and Irregular heart rhythm I49.9 [facility] [address] [id number] [place] [address] Jun, [facility] [id number] [place] [address] Jun, [facility] [id number] [place] [address] Jun, [facility] [id number] [place] [address] Jun, Primary insomnia F51.01 [facility] [id number] [place] [address] Jun, [facility] [id number] [place] [address] Jun, BMI 45.0-49.9, adult Z68.42 ; Acquired hypothyroidism E03.9 ; Fatigue, unspecified type R53.83 ; Palpitations R00.2 ; Right lower quadrant abdominal pain R10.31 and Morbid obesity E66.01 [facility] [id number] [place] [address] May, [facility] [id number] [place] [address] May, Acquired hypothyroidism E03.9 [facility] [id number] [place] [address] May, [place] [address] [place] [address] Apr, Acquired hypothyroidism E03.9 [facility] [id number] [place] [address] Mar, Acquired hypothyroidism E03.9 ; Skin tag L91.8 and BMI 45.0-49.9, adult Z68.42 [facility] [id number] [place] [address] Dec, [place] [address] [id number] [place] [address] Nov, Edema, unspecified type R60.9 [place] [address] [id number] [place] [address] Nov, Postablative hypothyroidism E89.0 [place] [id number] [place] [address] Nov, [facility] [id number] [place] [address] Nov, Generalized abdominal pain R10.84 ; History of abdominal hernia Z87.19 ; Pain of left calf M79.662 and BMI 45.0-49.9, adult Z68.42 [facility] [address]65[address], [place] [address] Sep, [facility] [id number] [place] [address] Sep, [facility] [address] [place] [address] Sep, Postablative hypothyroidism E89.0 ; Pain in left knee M25.562 ; Edema, unspecified type R60.9 ; Multiple joint pain M25.50 and BMI 45.0-49.9, adult Z68.42 [facility] [address], [place] [address] Aug, [facility] [address] [id number], [place] [address] 12 Jul, 2017 History of swelling of feet Z87.39 [facility] [id number] [place] [address] Jul, [facility] [address]65100[place], [place] [address] Jul, Pain in left knee M25.562 ; Other chronic pain G89.29 and BMI 45.0- 49.9, adult Z68.42 [facility] [id number] [place] [address] Jun, [facility] [id number] [place] [address] Jun, [facility] [id number] [place] [address] May, Primary insomnia F51.01 [facility] [id number] [place] [address] Apr, [facility] [id number] [place] [address] Apr, [facility] [address] [place] [address] Apr, Acute pain of left knee M25.562 ; Renal insufficiency N28.9 ; Fatigue, unspecified type R53.83 ; Postablative hypothyroidism E89.0 and BMI 40.0-44.9, adult Z68.41 [facility] [address]65[address], [place] [address] Mar, Acute pain of left knee M25.562 [facility] [id number] [place] [address] Feb, Renal insufficiency N28.9 [facility] [id number] [place] [address] Feb, [place] [address] [place] [address] Feb, [facility] [id number] [place] [address] Feb, [facility] [id number] [place] [address] Feb, Renal insufficiency N28.9 ; ADHD, predominantly inattentive type F90.0 ; Postablative hypothyroidism E89.0 ; Primary insomnia F51.01 ; Difficulty concentrating R41.840 ; History of swelling of feet Z87.39 ; Chronic pain syndrome G89.4 and Moderate episode of recurrent major depressive disorder F33.1 [place] [id number] [place] [address] Feb, [place] [address] [address] [id number] [place] [address] Feb, [place] [address] [id number] [place] [address] Jan, ADHD, predominantly inattentive type F90.0 [place] [address] [id number] [place] [address] Jan, Renal insufficiency N28.9 ; Postablative hypothyroidism E89.0 and History of swelling of feet Z87.39 [place] [address] [address] [id number] [place] [address] Jan, Chronic pain syndrome G89.4 [facility] [id number] [place] [address] Jan, [place] [address] [id number] [place] [address] Jan, Renal insufficiency N28.9 ; Primary insomnia F51.01 ; Difficulty concentrating R41.840 ; Postablative hypothyroidism E89.0 ; History of swelling of feet Z87.39 ; Chronic pain syndrome G89.4 and Moderate episode of recurrent major depressive disorder F33.1 [place] [address]65[address], [place] [address] Jan, [facility] [address], [place] [address] Jan, Candidal dermatitis B37.2 [facility] [address], [place] [address] Dec, [facility] [address] [place] [id number] [place] [address] Dec, [facility] [address] [id number], [place] [address] Dec, [facility] [address] [address] [id number] [place] [address] Dec, Stool color black K92.1 [facility] [address] [id number], [place] [address] Dec, Diarrhea of presumed infectious origin A09 [facility] [address]65100[place], [place] [address] Dec, Right lower quadrant abdominal pain R10.31 and Stool color black K92.1 [facility] [id number], [place] [address] Nov, [facility] [address]65100[place], [place] [address] Nov, Visit for TB skin test Z11.1 and Pre-employment examination Z02.1 [facility] [address]65[address], [place] [address] Nov, [facility] [id number], [place] [address] October, [facility] [id number], [place] [address] October, [facility] [address] [place] [id number] [place] [address] 15 Aug, 2016 [facility] [address] [place] [id number] [place] [address] 09 Aug, 2016 Other fatigue R53.83 ; BMI 45.0-49.9, adult Z68.42 ; Edema, unspecified type R60.9 ; Benign essential hypertension I10 and Lumbar degenerative disc disease M51.36 [facility] [address] [place] [id number] [place] [address] 08 Aug, 2016 Skin tag L91.8 [facility] [address] [address] 06 Aug, 2016 Abnormal laboratory test result R89.9 [facility] [address] [place] [id number] [place] [address] 20 Jul, 2016 Insomnia, unspecified type G47.00 [facility] [address] [address] 20 Jul, 2016 Benign essential hypertension I10 ; BMI 45.0-49.9, adult Z68.42 ; Lumbar degenerative disc disease M51.36 ; Edema, unspecified type R60.9 ; Other fatigue R53.83 and Hypothyroidism, unspecified type E03.9 [facility] [address] [place] [id number] [place] [address] 07 Jul, 2016 [facility] [address] [place] [id number] [place] [address] Jul, Benign essential hypertension I10 ; BMI 45.0-49.9, adult Z68.42 ; Lumbar degenerative disc disease M51.36 ; Edema, unspecified type R60.9 ; Other fatigue R53.83 and Hypothyroidism, unspecified type E03.9 [facility] [address] [place] [id number] [place] [address] Jun, [facility] [address] [place] [id number] [place] [address] Jun, [facility] [id number], [place] [address] Jun, Benign essential hypertension I10 ; Hypothyroidism, unspecified type E03.9 ; Other fatigue R53.83 ; Midline low back pain without sciatica, unspecified chronicity M54.5 and BMI 45.0-49.9, adult Z68.[address] [id number] Jun, Postablative hypothyroidism E89.0 ; Rhinopharyngitis J00 and Encounter for immunization Z23 [address] [id number] Jun, [address] [id number] May, [facility] [address] [place] [id number] [place] [address] May, [place] [id number] [place] [id number] May, [address] [id number] Apr, Hypothyroidism, unspecified type E03.9 [place] [id number] [place] [address] [id number] Apr, Hypothyroidism, unspecified type E03.9 [place] [id number] [place] [address] [id number] Apr, [place] [id number] [place] [id number] Mar, Hypothyroidism, unspecified type E03.9 ; Moderate single current episode of major depressive disorder F32.1 ; Other hyperlipidemia E78.49 and Elevated liver function tests R79.89 [facility] [id number] [place] [id number] Feb, [address] [place] [id number] Dec, Moderate single current episode of major depressive disorder F32.1 [place] [id number] Nov, [place] [address] [id number] Nov, [facility] [id number] [place] [id number] Nov, Hypothyroidism, unspecified type E03.9 ; Other hyperlipidemia E78.49 and Elevated liver function tests R79.89 [place] [address] [place] [id number] Nov, 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 ; Hypothyroidism, unspecified type E03.9 ; Benign essential hypertension I10 and Uncomplicated asthma, unspecified asthma severity J45.909 [place] [address] [place] [id number] Nov, 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 ; Hypothyroidism, unspecified type E03.9 ; Benign essential hypertension I10 and Uncomplicated asthma, unspecified asthma severity J45.909 [place] [id number] October, [address]65[place] [id number] October, [place] [address] [id number] October, Abnormal laboratory test result R89.9 [place] [address] [place] [address] [id number] October, Status post bilateral oophorectomy Z90.722 [address]65[place] [id number] Sep, [place] [address] [place] [address] [id number] Aug, [facility] [address] [id number] [id number] Aug, Complex ovarian cyst N83.20 [facility] [id number] [place] [address] [id number] Aug, Other acute sinusitis, recurrence not specified J01.80 [facility] [address] [id number] Aug, [facility] [address] [address] Jun, [facility] [address] [place] [id number] [place] [address] [id number] Jun, [facility] [address] [place] [id number] [place] [address] [id number] May, Allergic rhinitis, unspecified allergic rhinitis type J30.9 [facility] [address] [id number] [place] [address] May, [facility] [address] [place] [id number] [place] [address] [id number] Mar, [facility] [address] [place] [id number] [place] [address] [id number] Mar, [facility] [id number] [place] [address] [id number] Jan, Hypothyroidism 244.9 and Cyst in hand 727.43 [facility] [address] [place] [id number] [place] [address] [id number] Jan, [facility] [address] [place] [id number] [place] [address] [id number] Dec, [facility] [address] [place] [id number] [place] [address] [id number] Dec, Acute sinusitis 461.9 and Cough 786.2 [facility] [address]65100[place] [id number] Dec, Insect bite 919.4 [facility] [address] [id number] Nov, [facility] [address] [place] [id number] [place] [id number] Nov, [place] [id number] [place] [address] [id number] Sep, Obesity, morbid 278.01 ; Sleep apnea, obstructive 327.23 and Fatigue due to sleep pattern disturbance 780.79 [facility] [address] [address] Sep, [facility] [id number] [place] [address] Sep, [place] [id number] [place] [address] [id number] Aug, [facility] [id number] [place] [address] Aug, [place] [id number] [place] [address] [id number] Jul, [facility] [id number] [place] [address] Jul, [facility] [id number] [place] [address] Jul, [address] [place] [address] [id number] Jul, [place] [id number] [place] [address] [id number] Jun, [facility] [address] [place] [address] Jun, [place] [id number] [id number] May, [facility] [address]65100[place], [place] [address] May, [facility] [address]65100[place], [place] [address] Mar, [facility] [address]65100[place], [place] [address] Mar, [facility] [address]65100[place], [place] [address] Mar, [facility] [id number] [place] [address] [id number] Mar, [facility] [address] [id number], [place] [address] Mar, [facility] [id number] [place] [address] Mar, [facility] [address]65100[place], [place] [address] Mar, [place] [address] [place] [id number] [place] [address] [id number] Mar, [facility] [address]100[place], [place] [address] Mar, [facility] [id number] [id number] Mar, [facility] [address]100[place], [place] [address] Mar, IMMUNIZATIONS No Known Immunizations SOCIAL HISTORY Never Assessed REASON FOR VISIT [facility] [place]AN OF CARE VITAL SIGNS MEDICATIONS Medication Instructions Dosage Frequency Start Date End Date Duration Status levothyroxine 75 mcg take 1 tablet (75 mcg) by oral route once daily Mar, Active citalopram 40 mg take 1 tablet (40 mg) by oral route once daily Mar, Active Ventolin HFA 90 mcg/actuation inhale 2-4 puff by Inhalation route as needed every 4 hours PRN for cough or wheeze Jul, Active Albuterol Sulfate 2.5 mg /3 mL (0.083 %) 1 Each by Inhalation route every 4 hours for cough and wheeze PRN for wheezing or cough Jul, Active Albuterol Sulfate by inhalation route Jul, Active Tessalon Perles 100 mg 1 capsule by Oral route 3 times per day PRN Jul, Active Desonide 0.05 % apply sparingly and rub gently into the affected area(s) by Topical route 2 times per day repository Mar, Active Nebulizer 2 times per day PRN for SOB; Needed for lifetime Jul, Active Hydrochlorothiazide 25 mg take 1 tablet (25 mg) by oral route once daily Mar, Active Amoxicillin 500 mg 1 capsule by Oral route 3 times per day for 10 days Jul, Active Alprazolam 0.5 mg take 1 tablet by Oral route 1 time per day Mar, Active RESULTS No Results PROCEDURES No Known [...] KU- Diarrhea/abdominal pain 11/2016 Hospitalization History [facility] for heart beating funny 03/2018
--- OUTSIDE RECORDS SUMMARY | 2019-01-08 12:22 | XMS REPORT ---
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 Name Role Phone JACKIE GRTA Unavailable PROBLEMS Type Condition ICD9-CM Code FMO81-JT Code Onset Dates Condition Status SNOMED Code Problem Benign essential hypertension I10 Active 1348923 Problem Allergic rhinitis, unspecified allergic rhinitis type J30.9 Active 91053410 Problem Postablative hypothyroidism E89.0 Active 629594703 Problem Other hyperlipidemia E78.49 Active 05241720 Problem Moderate episode of recurrent major depressive disorder F33.1 Active 69298718 Problem Lumbar degenerative disc disease M51.36 Active 64556083 Problem Renal insufficiency N28.9 Active 362080919 Problem Difficulty concentrating R41.840 Active 20449979 Problem Fatigue, unspecified type R53.83 Active 84587941 Problem Other chronic pain G89.29 Active 73248365 Problem Irregular heart rhythm I49.9 Active 102200321 Problem Major depression F32.9 Active 682405666 Problem ADHD, predominantly inattentive type F90.0 Active 96547456 Problem Positive urine drug screen R82.5 Active 268275221 Problem Insomnia G47.00 Active 967436656 Problem Chronic pain syndrome G89.4 Active 026751235 Problem Anxiety F41.9 Active 78526648 Problem Primary osteoarthritis of left knee M17.12 Active 212173699566930 Problem Degenerative disc disease, lumbar M51.36 Active 15880709 Problem Arthritis, multiple joint involvement M12.9 Active 70364458373380 Problem Uncomplicated asthma, unspecified asthma severity, unspecified whether persistent J45.909 Active 42491165 ALLERGIES No Information ENCOUNTERS Encounter Location Date Diagnosis [address] [address] Nov, [address] [address] Nov, Lower abdominal pain R10.30 ; Other specified postprocedural states Z98.890 ; Personal history of other diseases of the digestive system Z87.19 and Morbid obesity E66.01 [facility] [id number] [address] October, [facility] [address] [address] October, [facility] [address] [address] October, Chronic pain syndrome G89.4 [facility] [address] [place] [address] October, [facility] [address] [address] October, [facility] [address] [address] October, Right lower quadrant abdominal pain R10.31 [place] [id number], [place] [address] October, [facility] [address] [address] October, [facility] [address] [address] October, [facility] [address] [address] Sep, [facility] [address] [address] Sep, Chronic pain syndrome G89.4 [facility] [place] [address] [address] Sep, Chronic pain syndrome G89.4 [facility] [address] [address] Sep, Witnessed apneic spells R06.81 ; Loud snoring R06.83 ; Chronic fatigue R53.82 and Chronic pain syndrome G89.4 [facility] [address] [facility] [id number] [address] Sep, [facility] [address] [place] [address] Sep, Acute nonintractable headache, unspecified headache type R51 and Morbid obesity E66.[address] [address] Sep, Morbid obesity E66.01 ; Bilateral leg edema R60.0 ; Pain of left leg M79.605 ; Pain in right leg M79.604 ; Generalized abdominal pain R10.84 and Lumbar back pain M54.5 [place] [address], [place] [address] Sep, Acute pain of left knee M25.562 and Primary osteoarthritis of left knee M17.[address] [address] Aug, [address] [address] Aug, [address] [address] Aug, [address] [address] Aug, Arthritis, multiple joint involvement M12.9 ; Abdominal wall seroma, subsequent encounter S30.1XXD ; Degenerative disc disease, lumbar M51.36 and Chronic pain syndrome G89.[address] [address] Aug, Morbid obesity E66.01 and Abdominal wall pain R10.[address] [address] Aug, Abdominal wall pain R10.9 ; Abdominal wall seroma, initial encounter S30.1XXA and Leg edema R60.0 [facility] [id number] [address] Jul, Acute pain of left knee M25.562 [facility] [id number], [place] [address] Jul, [address] [address] Jul, Bilateral lower extremity edema R60.0 ; Pain of left leg M79.605 ; Pain in right leg M79.604 ; BMI 45.0-49.9, adult Z68.42 and Morbid obesity E66.01 [facility] [address] [facility] [place] [address] Jul, BMI 50.0-59.9, adult Z68.43 ; Swelling of lower extremity M79.89 and Irregular heart rhythm I49.9 [facility] [id number] [place] [address] Jun, [facility] [id number] [place] [address] Jun, [facility] [id number] [place] [address] Jun, [place] [id number] [place] [address] Jun, Primary insomnia F51.01 [facility] [id number] [place] [address] Jun, [place] [id number] [place] [address] Jun, BMI 45.0-49.9, adult Z68.42 ; Acquired hypothyroidism E03.9 ; Fatigue, unspecified type R53.83 ; Palpitations R00.2 ; Right lower quadrant abdominal pain R10.31 and Morbid obesity E66.01 [facility] [id number] [place] [address] May, [facility] [id number] [place] [address] May, Acquired hypothyroidism E03.9 [facility] [id number] [place] [address] May, [facility] [id number] [place] [address] Apr, Acquired hypothyroidism E03.9 [place] [address] [place] [address] Mar, Acquired hypothyroidism E03.9 ; Skin tag L91.8 and BMI 45.0-49.9, adult Z68.42 [facility] [id number] [place] [address] Dec, [facility] [id number] [place] [address] Nov, Edema, unspecified type R60.9 [facility] [id number] [place] [address] Nov, Postablative hypothyroidism E89.0 [facility] [id number] [place] [address] Nov, [facility] [id number] [place] [address] Nov, Generalized abdominal pain R10.84 ; History of abdominal hernia Z87.19 ; Pain of left calf M79.662 and BMI 45.0-49.9, adult Z68.42 [facility] [id number] [place] [address] 16 Sep, 2017 [facility] [address] [place] [address] Sep, [facility] [id number] [place] [address] Sep, Postablative hypothyroidism E89.0 ; Pain in left knee M25.562 ; Edema, unspecified type R60.9 ; Multiple joint pain M25.50 and BMI 45.0-49.9, adult Z68.42 [facility] [id number] [place] [address] Aug, [facility] [address] [place] [id number] [place] [address] 12 Jul, 2017 History of swelling of feet Z87.39 [facility] [id number] [place] [address] Jul, [facility] [id number] [place] [address] Jul, Pain in left knee M25.562 ; Other chronic pain G89.29 and BMI 45.0- 49.9, adult Z68.42 [facility] [id number] [place] [address] Jun, [facility] [id number] [place] [address] Jun, [facility] [id number] [place] [address] May, Primary insomnia F51.01 [place] [id number] [place] [address] Apr, [facility] [id number] [place] [address] Apr, [facility] [id number] [place] [address] Apr, Acute pain of left knee M25.562 ; Renal insufficiency N28.9 ; Fatigue, unspecified type R53.83 ; Postablative hypothyroidism E89.0 and BMI 40.0-44.9, adult Z68.41 [facility] [id number] [place] [address] Mar, Acute pain of left knee M25.562 [facility] [id number] [place] [address] Feb, Renal insufficiency N28.9 [facility] [id number] [place] [address] Feb, [facility] [address] [place] [address] Feb, [place] [id number] [place] [address] Feb, [facility] [id number] [place] [address] Feb, Renal insufficiency N28.9 ; ADHD, predominantly inattentive type F90.0 ; Postablative hypothyroidism E89.0 ; Primary insomnia F51.01 ; Difficulty concentrating R41.840 ; History of swelling of feet Z87.39 ; Chronic pain syndrome G89.4 and Moderate episode of recurrent major depressive disorder F33.1 [facility] [id number] [place] [address] Feb, [place] [id number] [place] [address] Feb, [place] [id number] [place] [address] Jan, ADHD, predominantly inattentive type F90.0 [place] [id number] [place] [address] Jan, Renal insufficiency N28.9 ; Postablative hypothyroidism E89.0 and History of swelling of feet Z87.39 [place] [id number] [place] [address] Jan, Chronic pain syndrome G89.4 [place] [id number] [place] [address] Jan, [place] [id number] [place] [address] Jan, Renal insufficiency N28.9 ; Primary insomnia F51.01 ; Difficulty concentrating R41.840 ; Postablative hypothyroidism E89.0 ; History of swelling of feet Z87.39 ; Chronic pain syndrome G89.4 and Moderate episode of recurrent major depressive disorder F33.1 [place] [id number] [place] [address] Jan, [facility] [address] [id number] [address] Jan, Candidal dermatitis B37.2 [facility] [address] [place] [address] Dec, [facility] [id number] [address] Dec, [facility] [id number] [place] [address] Dec, [facility] [id number] [place] [address] Dec, Stool color black K92.1 [facility] [id number] [place] [address] Dec, Diarrhea of presumed infectious origin A09 [facility] [id number] [place] [address] Dec, Right lower quadrant abdominal pain R10.31 and Stool color black K92.1 [facility] [id number] [address] Nov, [facility] [address] [place] [address] Nov, Visit for TB skin test Z11.1 and Pre-employment examination Z02.1 [facility] [address], [place] [address] Nov, [facility] [id number] [address] October, [facility] [id number] [address] October, [facility] [address]379B27799912TVPENN[place] [address] Aug, [facility] [id number] [address] Aug, Other fatigue R53.83 ; BMI 45.0-49.9, adult Z68.42 ; Edema, unspecified type R60.9 ; Benign essential hypertension I10 and Lumbar degenerative disc disease M51.36 [facility] [id number] [place] [address] 08 Aug, 2016 Skin tag L91.8 [facility] [id number] [place] [address] Aug, Abnormal laboratory test result R89.9 [facility] [id number] [place] [address] Jul, Insomnia, unspecified type G47.00 [facility] [id number] [place] [address] Jul, Benign essential hypertension I10 ; BMI 45.0-49.9, adult Z68.42 ; Lumbar degenerative disc disease M51.36 ; Edema, unspecified type R60.9 ; Other fatigue R53.83 and Hypothyroidism, unspecified type E03.9 [facility] [id number] [place] [address] Jul, [facility] [id number] [place] [address] Jul, Benign essential hypertension I10 ; BMI 45.0-49.9, adult Z68.42 ; Lumbar degenerative disc disease M51.36 ; Edema, unspecified type R60.9 ; Other fatigue R53.83 and Hypothyroidism, unspecified type E03.9 [facility] [id number] [address] Jun, [facility] [id number] [place] [address] Jun, [facility] [id number] [place] [address] Jun, Benign essential hypertension I10 ; Hypothyroidism, unspecified type E03.9 ; Other fatigue R53.83 ; Midline low back pain without sciatica, unspecified chronicity M54.5 and BMI 45.0-49.9, adult Z68.42 [place] [id number] [place] [id number] Jun, Postablative hypothyroidism E89.0 ; Rhinopharyngitis J00 and Encounter for immunization Z23 [place] [id number] [place] [id number] Jun, [address] [id number] May, [facility] [id number] [place] [address] May, [place] [id number] [place] [address] [id number] May, [place] [id number] [place] [address] [id number] Apr, Hypothyroidism, unspecified type E03.9 [address] [place] [address] [place] [address] [id number] Apr, Hypothyroidism, unspecified type E03.9 [address] [id number] Apr, [address] [place] [address] [place] [address] [id number] Mar, Hypothyroidism, unspecified type E03.9 ; Moderate single current episode of major depressive disorder F32.1 ; Other hyperlipidemia E78.49 and Elevated liver function tests R79.89 [facility] [address] [id number] [id number] Feb, [address] [place] [address] [place] [id number] Dec, Moderate single current episode of major depressive disorder F32.[address] [id number] [id number] Nov, [facility] [address] [id number] [id number] Nov, [facility] [id number] [address] Nov, Hypothyroidism, unspecified type E03.9 ; Other hyperlipidemia E78.49 and Elevated liver function tests R79.89 [facility] [id number] [place] [address] [id number] Nov, 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 ; Hypothyroidism, unspecified type E03.9 ; Benign essential hypertension I10 and Uncomplicated asthma, unspecified asthma severity J45.909 [address] [place] [place] [address] [id number] Nov, 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 ; Hypothyroidism, unspecified type E03.9 ; Benign essential hypertension I10 and Uncomplicated asthma, unspecified asthma severity J45.909 [facility] [address] [id number] October, [place] [id number] [place] [id number] October, [address] [id number] October, Abnormal laboratory test result R89.9 [address] [id number] [id number] October, Status post bilateral oophorectomy Z90.722 [address] [place] [address] [place] [id number] Sep, [address] [id number] Aug, [place] [address] [place] [address] [id number] Aug, Complex ovarian cyst N83.20 [address] [place] [place] [address] [id number] Aug, Other acute sinusitis, recurrence not specified J01.80 [address] [place] [address] [place] [address] [id number] Aug, [place] [address] [address] Jun, [place] [id number] [place] [id number] Jun, [address] [id number] May, Allergic rhinitis, unspecified allergic rhinitis type J30.9 [place] [id number] [place] [address] May, [place] [id number] [place] [id number] Mar, [address] [id number] Mar, [place] [address] [place] [address] [id number] Jan, Hypothyroidism 244.9 and Cyst in hand 727.43 [address] [place] [place] [address] [id number] Jan, [address] [place] [address] [place] [address] [id number] Dec, [place] [address] [place] [address] [id number] Dec, Acute sinusitis 461.9 and Cough 786.2 [address] [place] [address] [id number] Dec, Insect bite 919.4 [id number] [id number] Nov, [facility] [address] [place] [id number] [place] [address] [id number] Nov, [facility] [address] [place] [id number] Sep, Obesity, morbid 278.01 ; Sleep apnea, obstructive 327.23 and Fatigue due to sleep pattern disturbance 780.79 [facility] [id number] [place] [address] Sep, [facility] [id number] [place] [address] Sep, [address] [place] [id number] [place] [address] [id number] Aug, [facility] [id number] [place] [address] Aug, [place] [id number] [place] [address] [id number] Jul, [facility] [id number] [place] [address] Jul, [facility] [id number] [place] [address] Jul, [facility] [address] [place] [id number] [place] [address] [id number] Jul, [address] [place] [address] [id number] Jun, [facility] [id number] [place] [address] Jun, [facility] [address] [place] [id number] May, [facility] [id number] [place] [address] May, [facility] [address]100[place], [place] [address] Mar, [facility] [address]100[place], [place] [address] Mar, [facility] [address]100[place], [place] [address] Mar, [address]65100[place] [id number] Mar, [facility] [address] [place] [address] Mar, [facility] [id number] [place] [address] Mar, [facility] [address]100[place], [place] [address] Mar, [address]100[place] [id number] Mar, [facility] [address]100[place], [place] [address] Mar, [address]65100[place] [id number] Mar, [facility] [address] [id number] [address] Mar, IMMUNIZATIONS No Known Immunizations SOCIAL HISTORY Never Assessed REASON FOR VISIT Refill request PLAN OF CARE VITAL SIGNS MEDICATIONS Medication Instructions Dosage Frequency Start Date End Date Duration Status Furosemide 40 mg Orally Once a day 1 tablet 24h Active Gabapentin 300 MG Orally 3 times a day 1 capsule 8h 28 Active Lasix 40 mg Orally Once a day [...] Surgical History oopherectomy-right Surgical History hysterectomy, abdominal, 2015 Surgical History Abdominal hernia repair 09/2015 Surgical History Abdominal Hernia Repair 2016 Surgical History cardiac cath-dr bonds 2018 Hospitalization History Vomiting 2011 Hospitalization History Asthma [facility] Hospitalization History Mononucleosis Hospitalization History Pneumonia Hospitalization History Surgery(s) only Hospitalization History chest pain 11/2016 Hospitalization History [facility]- Diarrhea/abdominal pain 11/2016 Hospitalization History [facility] ER for heart beating funny 03/2018
[2019-01-08] MEDS ORDERED: NITROGLYCERIN 0.4 MG SL TABS BTL 25'S SL PRN (12:30)
[2019-01-08] MEDS ORDERED: ASPIRIN 81 MG CHEW (CHILDREN'S ASA) PO ONE (12:30)
--- NOTE | 2019-01-08 12:33 | ED Chest Pain ---
General Chief Complaint: Chest Pain Stated Complaint: INTERMITTENT L SIDE CHEST/BACK PAIN Nursing Triage Note: Patient reports intermittent L side/chest pain. patient denies anything that makes pain better or worse. Patient reports SOA with exerction Nursing Sepsis Screen: No Definite Risk Source: patient, family Exam Limitations: no limitations History of Present Illness Date Seen by Provider: Jan 08, 2019 Time Seen by Provider: 12:29 Initial Comments This 48-year-old white female presents with left-sided chest pain has been present for the last 24 hours. The patient had associated shortness of breath. The patient is taking aspirin but no other medications. The aspirin did not help his chest pain. Is normal cardiac catheterization recently. The patient has been sitting in the hospital chair for 24 hours and the positioning may have caused the chest discomfort. Allergies and Home Medications Allergies Coded Allergies: Sulfa (Sulfonamide Antibiotics) (Verified Allergy, Unknown, 06/27/18) hydroxyzine (Verified Allergy, Unknown, 06/27/18) prochlorperazine (Verified Allergy, Unknown, 12/20/16) tetracycline (Verified Allergy, Unknown, 06/27/18) Home Medications Cyclobenzaprine HCl 10 Mg Tablet, 10 MG PO BID PRN for PRN, (Reported) Dicyclomine HCl 10 Mg Capsule, 10 MG PO Q6H Prescribed by: VEGA BAUGH on 11/28/181710 Furosemide 40 Mg Tablet, 40 MG PO DAILY, (Reported) Gabapentin 300 Mg Capsule, 300 MG PO PRN, (Reported) Hydrocodone/Acetaminophen 1 Each Tablet, 1 TAB PO Q4-6HR Prescribed by: ELEN POLLACK on 11/23/18 0150 Levothyroxine Sodium 50 Mcg Tablet, 50 MCG PO DAILY, (Reported) Meloxicam 15 Mg Tablet, 15 MG PO DAILY, (Reported) Ondansetron HCl 8 Mg Tablet, 8 MG PO Q6H PRN for NAUSEA/VOMITING-1ST LINE Prescribed by: LEONIDES ALFARO on 08/29/18 1605 Oxycodone HCl/Acetaminophen 1 Each Tablet, 1 TAB PO Q6H PRN for ABDOMINAL PAIN Prescribed by: LEONIDES ALFARO on 08/29/18 1605 Oxycodone HCl/Acetaminophen 1 Each Tablet, 1 TAB PO Q4H Prescribed by: VEGA BAUGH on 11/28/18 171 Oxycodone HCl/Acetaminophen 1 Each Tablet, 1 EACH PO Q4H PRN for PAIN-SEVERE Prescribed by: LYLA MARTINEZRT on 12/04/18440 Promethazine HCl 25 Mg Tablet, 25 MG PO Q6H PRN for NAUSEA/VOMITING Prescribed by: LYLA MARTINEZRT on 12/04/18440 Sucralfate 1 Gm Tablet, 1 GM PO ACHS Prescribed by: LYLA MARTINEZRT on 12/04/18440 Venlafaxine HCl 75 Mg Tab, 75 MG PO BID, (Reported) Patient Home Medication List Home Medication List Reviewed: Yes Review of Systems Review of Systems Constitutional: No chills, No fever EENTM: No Symptoms Reported Respiratory: SOA With Exertion Cardiovascular: See HPI, Chest Pain, Edema Gastrointestinal: Denies Abdominal Pain, Denies Diarrhea, Denies Nausea, Denies Vomiting Genitourinary: No Symptoms Reported Musculoskeletal: no symptoms reported Skin: no symptoms reported; No rash Psychiatric/Neurological: No Symptoms Reported Endocrine: No Symptoms Reported Hematologic/Lymphatic: No Symptoms Reported Past Rocnsaq-Hjponf-Aganuv Hx Past Med/Social Hx: Reviewed Nursing Past Med/Soc Hx Patient Social History Alcohol Use: Denies Use Recreational Drug Use: No Smoking Status: Former Smoker Type Used: Cigarettes Former Smoker, Quit: Jun 15, 1996 2nd Hand Smoke Exposure: No Recent Foreign Travel: No Contact w/Someone Who Travel: No Recent Infectious Disease Expo: No Recent Hopitalizations: No Immunizations Up To Date Tetanus Booster (TDap): Less than 5yrs PED Vaccines UTD: Yes Date of Pneumonia Vaccine: Apr 18, 2013 Date of Influenza Vaccine: Apr 18, 2018 Seasonal Allergies Seasonal Allergies: No Past Medical History Surgeries: Yes (HERNIA X3) Abdominal, Appendectomy, Gallbladder, Hysterectomy Respiratory: No Asthma Currently Using CPAP: No Currently Using BIPAP: No Cardiac: No Chronic Edema/Swelling 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 0oz. 136.691199gp; 48.6 BMI Method:Stated General Appearance: WD/WN HEENT: Normal ENT Inspection Neck: Full Range of Motion, Normal Inspection, Non Tender Respiratory: Chest Non Tender, Lungs Clear, Normal Breath Sounds, No Respiratory Distress Cardiovascular: Regular Rate, Rhythm, No Murmur Gastrointestinal: Normal Bowel Sounds, Non Tender Extremity: Normal Capillary Refill, Normal Inspection, Normal Range of Motion Neurologic/Psychiatric: Oriented x3, No Motor/Sensory Deficits, Normal Mood/Affect Skin: Normal Color, Warm/Dry Progress/Results/Core Measures Results/Orders Lab Results Laboratory Tests Test 01/08/19 12:40 Range/Units White Blood Count 5.7 4.3-11.0 10^3/uL Red Blood Count 4.14 L 4.35-5.85 10^6/uL Hemoglobin 13.0 11.5-16.0 G/DL Hematocrit 39 35-52 % Mean Corpuscular Volume 94 80-99 FL Mean Corpuscular Hemoglobin 31 25-34 PG Mean Corpuscular Hemoglobin Concent 33 32-36 G/DL Red Cell Distribution Width 13.1 10.0-14.5 % Platelet Count 145 130-400 10^3/uL Mean Platelet Volume 10.5 H 7.4-10.4 FL Neutrophils (%) (Auto) 55 42-75 % Lymphocytes (%) (Auto) 36 12-44 % Monocytes (%) (Auto) 8 0-12 % Eosinophils (%) (Auto) 1 0-10 % Basophils (%) (Auto) 0 0-10 % Neutrophils # (Auto) 3.1 1.8-7.8 X 10^3 Lymphocytes # (Auto) 2.1 1.0-4.0 X 10^3 Monocytes # (Auto) 0.5 0.0-1.0 X 10^3 Eosinophils # (Auto) 0.1 0.0-0.3 10^3/uL Basophils # (Auto) 0.0 0.0-0.1 10^3/uL Prothrombin Time 12.9 12.2-14.7 SEC INR Comment 0.9 0.8-1.4 Activated Partial Thromboplast Time 22 L 24-35 SEC D-Dimer 0.37 0.00-0.49 UG/ML Sodium Level 139 135-145 MMOL/L Potassium Level 4.2 3.6-5.0 MMOL/L Chloride Level 106 98-107 MMOL/L Carbon Dioxide Level 21 21-32 MMOL/L Anion Gap 12 5-14 MMOL/L Blood Urea Nitrogen 18 7-18 MG/DL Creatinine 0.84 0.60-1.30 MG/DL Estimat Glomerular Filtration Rate > 60 BUN/Creatinine Ratio 21 Glucose Level 107 H 70-105 MG/DL Calcium Level 9.2 8.5-10.1 MG/DL Corrected Calcium 9.4 8.5-10.1 MG/DL Magnesium Level 1.7 L 1.8-2.4 MG/DL Total Bilirubin 0.4 0.1-1.0 MG/DL Aspartate Amino Transf (AST/SGOT) 29 5-34 U/L Alanine Aminotransferase (ALT/SGPT) 50 0-55 U/L Alkaline Phosphatase 76 40-136 U/L Myoglobin 53.7 10.0-92.0 NG/ML Troponin I < 0.028 <0.028 NG/ML Total Protein 6.4 6.4-8.2 GM/DL Albumin 3.8 3.2-4.5 GM/DL My Orders Orders - SOPHIA, EVARISTO Waterman MD Cbc With Automated Diff (01/08/19 12:21) Magnesium (01/08/19 12:21) Chest 1 View, Ap/Pa Only (01/08/19 12:21) Ekg Tracing (01/08/19 12:21) Cardiac Profile 1 (01/08/19 12:) Comprehensive Metabolic Panel (01/08/19 12:21) Myoglobin Serum (01/08/19 12:21) Protime With Inr (01/08/19 12:) Partial Thromboplastin Time (01/08/19 12:21) O2 (01/08/19 12:) Monitor-Rhythm Ecg Trace Only (01/08/19 12:21) Lipid Panel (01/09/19 06:00) Ed Iv/Invasive Line Start (01/08/19 12:21) Fibrin Degradation Products (01/08/19 12:21) Nitroglycerin 0.4 Mg Btl 25's (Nitrostat (01/08/19 12:30) Medications Given in ED Current Medications Medications Dose Ordered Sig/Ashley Route Start Time Stop Time Status Last Admin Dose Admin Nitroglycerin 0.4 mg UD PRN SL 01/08/19 12:30 01/08/19 13:14 0.4 MG Vital Signs/I&O 01/08/19 01/08/19 12:22 12:22 Temp 98.4 Pulse 71 Resp 17 B/P (MAP) 137/70 (92) Pulse Ox 96 O2 Delivery Room Air Blood Pressure Mean: 92 Progress Progress Note : Time: 14:42 Progress Note Patient's EKG, chest x-ray, troponin, d-dimer, and the rest of her laboratory evaluation was unremarkable. Although the patient received nitroglycerin in the emergency department there is no significant improvement in chest discomfort. I discussed findings with patient and her significant other and they would like to go home. Will follow up with her primary care physician on Wednesday. Departure Impression Primary Impression: Chest discomfort Disposition: HOME, SELF-CARE Condition: Unchanged Departure-Patient Inst. Decision time for Depature: 14:43 Referrals: MARITA SHER MD (PCP/Family) Primary Care Physician Patient Instructions: Chest Pain (DC) Add. Discharge Instructions: Vicodin for pain. Follow-up with Dr. sher on Wednesday. Return if any problems or questions. All discharge instructions reviewed with patient and/or family. Voiced understanding. Scripts Hydrocodone/Acetaminophen (Vicodin 5-300 mg Tablet) 1 Each Tablet 1-2 EACH PO Q6H PRN for PAIN-MODERATE MDD 10 for 7 Days, TAB Prov: EVARISTO CORTES MD 01/08/19 EVARISTO CORTES MD Jan 08, 2019 12:33
--- OUTSIDE RECORDS SUMMARY | 2019-01-08 12:36 | XMS REPORT | Continuity of Care Document ---
Author Organization Unknown Address Unknown Allergies Active Description Code Type Severity Reaction Onset Reported/Identified Relationship to Patient Clinical Status Yes Compazine Drug N/A Agitation Yes hydrOXYzine Drug N/A Agitation Yes sulfa drugs Drug N/A N Yes Sulfa (Sulfonamide Antibiotics) Drug Allergy N/A N/A 04/03/2014 Yes Tetracyclines Drug Allergy N/A N/A 04/03/2014 Yes No Known Drug Allergies [id number] Drug Allergy Unknown N/A 12/20/2016 Yes prochlorperazine [id number] Drug Allergy Unknown N/A 12/20/2016 Yes hydroxyzine [id number] Drug Allergy Unknown N/A 06/27/2018 Yes Sulfa (Sulfonamide Antibiotics) [id number] Drug Allergy Unknown N/A 06/27/2018 Yes tetracycline [id number] Drug Allergy Unknown N/A 06/27/2018 Medications Medication [...] 611.72 BREAST LUMP OR MASS 04/23/2014 KIM MITCEHLL MD 782.1 RASH 04/23/2014 KIM MITCHELL MD [...] PT LV BEF SEE 12/20/2016 JEANNETTE BELLO DOZER OPERATOR Ot R11.2 NAUSEA WITH VOMITING, UNSPECIFIED 12/20/2016 JEANNETTE BELLO DOZER OPERATOR Ot R19.7 DIARRHEA, UNSPECIFIED 12/20/2016 JEANNETTE BELLO DOZER OPERATOR Ot R25.2 CRAMP AND SPASM 12/22/2016 JEANNETTE BELLO DOZER OPERATOR Ot R11.2 NAUSEA WITH VOMITING, UNSPECIFIED 12/22/2016 JEANNETTE BELLO DOZER OPERATOR Ot R19.7 DIARRHEA, UNSPECIFIED 12/22/2016 JEANNETTE BELLO DOZER OPERATOR Ot R25.2 CRAMP AND SPASM 12/22/2016 JEANNETTE BELLO DOZER OPERATOR Ot R11.2 NAUSEA WITH VOMITING, UNSPECIFIED 12/22/2016 JEANNETTE BELLO DOZER OPERATOR Ot R19.7 DIARRHEA, UNSPECIFIED 12/22/2016 JEANNETTE BELLO DOZER OPERATOR Ot R25.2 CRAMP AND SPASM 07/13/2017 Kacey [...] ENCOUNTER FOR DISABILITY DETERMINATION 07/18/2018 ECTOR D DOZER OPERATOR Ot R10.31 RIGHT LOWER QUADRANT PAIN 07/18/2018 ECTOR GR DOZER OPERATOR Ot Z90.49 ACQUIRED ABSENCE OF OTHER SPECIFIED PART 07/18/2018 SIMÓNECTOR DOZER OPERATOR Ot Z98.890 OTHER SPECIFIED POSTPROCEDURAL STATES 07/19/2018 [...] FACC, ALI FACP CCDS Ot Z79.899 OTHER HALFWAY (CURRENT) DRUG THERAPY 07/22/2018 LUCIA IGNACIO FACC, [...] 45.0-49.9, ADULT 07/22/2018 LUCIA IGNACIO FAC, [facility] CCDS Ot Z79.899 OTHER HALFWAY (CURRENT) DRUG THERAPY 08/05/2018 ARMANDO IGNACIO, ARIES Anglin (DDU) Ot Z02.71 ENCOUNTER FOR DISABILITY DETERMINATION 08/05/2018 ECTOR GR Yann DOZER OPERATOR Ot R10.31 RIGHT LOWER QUADRANT PAIN 08/05/2018 SIMÓN ECTOR D DOZER OPERATOR Ot Z90.49 ACQUIRED ABSENCE OF OTHER SPECIFIED PART 08/05/2018 JACKIE GRCELINE Lerner DOZER OPERATOR Ot Z98.890 OTHER SPECIFIED POSTPROCEDURAL STATES 08/08/2018 WIGGINSRICHA KANG DOZER OPERATOR Ot M79.89 OTHER SPECIFIED SOFT TISSUE DISORDERS 08/08/2018 WIGGINSRICHA KANG DOZER OPERATOR Ot R60.0 LOCALIZED EDEMA 08/18/2018 WIGGINSRICHA DOZER OPERATOR Ot M79.89 OTHER SPECIFIED SOFT TISSUE DISORDERS 08/18/2018 WIGGINSRICHA KANG DOZER OPERATOR Ot R60.0 LOCALIZED EDEMA 08/29/2018 LEONIDES ALFARO [...] YUMIKO Ot F41.9 ANXIETY DISORDER, UNSPECIFIED 09/05/2018 WHITEWATER DO, YUMIKO Ot J45.909 UNSPECIFIED ASTHMA, UNCOMPLICATED [...] SPECIFIED POSTPROCEDURAL STATES 11/10/2018 SIMÓN, ECTOR D DOZER OPERATOR Ot R10.31 RIGHT LOWER QUADRANT PAIN 11/10/2018 SIMÓN, ECTOR D DOZER OPERATOR Ot Z90.49 ACQUIRED ABSENCE OF OTHER SPECIFIED PART 11/10/2018 SIMÓN, ECTOR D DOZER OPERATOR Ot Z98.890 OTHER SPECIFIED POSTPROCEDURAL STATES 11/14/2018 [...] YUMIKO Ot Z98.890 OTHER SPECIFIED POSTPROCEDURAL STATES 11/28/2018 VEGA BAUGH MD, Ot E03.9 HYPOTHYROIDISM, UNSPECIFIED 11/28/2018 VEGA BAUGH MD, Ot F32.9 MAJOR DEPRESSIVE DISORDER, SINGLE EPISOD 11/28/2018 VEGA BAUGH MD Ot G89.29 OTHER CHRONIC PAIN 11/28/2018 VEGA BAUGH MD Ot J45.909 UNSPECIFIED ASTHMA, UNCOMPLICATED 11/28/2018 VEGA BAUGH MD, Ot K21.9 GASTRO-ESOPHAGEAL REFLUX DISEASE WITHOUT 11/28/2018 VEGA BAUGH MD Ot R10.31 RIGHT LOWER QUADRANT PAIN 11/28/2018 VEGA BAUGH MD, Ot Z87.19 PERSONAL HISTORY OF OTHER DISEASES OF 11/28/2018 VEGA BAUGH MD, Ot Z87.891 PERSONAL HISTORY OF NICOTINE DEPENDENCE 11/28/2018 VEGA BAUGH MD, Ot Z88.1 ALLERGY STATUS TO OTHER ANTIBIOTIC AGENT 11/28/2018 VEGA BAUGH MD, Ot Z88.2 ALLERGY STATUS TO SULFONAMIDES STATUS 11/28/2018 VEGA BAUGH MD, Ot Z88.8 ALLERGY STATUS TO OTH DRUG/MEDS/BIOL SUB 11/28/2018 VEGA BAUGH MD Ot Z90.49 ACQUIRED ABSENCE OF OTHER SPECIFIED PART 11/28/2018 VEGA BAUGH MD Ot Z90.710 ACQUIRED ABSENCE OF BOTH CERVIX AND UTER 11/28/2018 VEGA BAUGH MD, Ot Z98.890 OTHER SPECIFIED POSTPROCEDURAL STATES 12/01/2018 VEGA BAUGH MD, Ot E03.9 HYPOTHYROIDISM, UNSPECIFIED 12/01/2018 VEGA BAUGH MD, Ot F32.9 MAJOR DEPRESSIVE DISORDER, SINGLE EPISOD 12/01/2018 VEGA BAUGH MD, Ot G89.29 OTHER CHRONIC PAIN 12/01/2018 VEGA BAUGH MD, Ot J45.909 UNSPECIFIED ASTHMA, UNCOMPLICATED 12/01/2018 VEGA BAUGH MD, Ot K21.9 GASTRO-ESOPHAGEAL REFLUX DISEASE WITHOUT 12/01/2018 VEGA BAUGH MD, Ot R10.31 RIGHT LOWER QUADRANT PAIN 12/01/2018 [...] TO OTH DRUG/MEDS/BIOL SUB 12/01/2018 VEGA BAUGH MD, Ot Z90.49 ACQUIRED ABSENCE OF OTHER SPECIFIED PART 12/01/2018 VEGA BAUGH MD, Ot Z90.710 ACQUIRED ABSENCE OF BOTH CERVIX AND UTER 12/01/2018 VEGA BAUGH MD, Ot Z98.890 OTHER SPECIFIED POSTPROCEDURAL STATES 12/04/2018 LYLA LANGE MD, Ot E03.9 HYPOTHYROIDISM, UNSPECIFIED 12/04/2018 LYLA LANGE MD, Ot F32.9 MAJOR DEPRESSIVE DISORDER, SINGLE EPISOD 12/04/2018 LYLA LANGE MD, Ot J45.909 UNSPECIFIED ASTHMA, UNCOMPLICATED 12/04/2018 LYLA LANGE MD, Ot K21.9 GASTRO-ESOPHAGEAL REFLUX DISEASE WITHOUT 12/04/2018 LYLA LANGE MD, Ot K43.9 VENTRAL HERNIA WITHOUT OBSTRUCTION OR GA 12/04/2018 LYLA LANGE MD Ot L76.34 POSTPROC SEROMA OF SKIN, SUBCU FOLLOWING 12/04/2018 LYLA LANGE MD, Ot M41.9 SCOLIOSIS, UNSPECIFIED 12/04/2018 LYLA LANGE MD, Ot R10.9 UNSPECIFIED ABDOMINAL PAIN 12/04/2018 LYLA LANGE MD, Ot Z87.19 PERSONAL HISTORY OF OTHER DISEASES OF TH 12/04/2018 LYLA LANGE MD, Ot Z87.891 PERSONAL HISTORY OF NICOTINE DEPENDENCE 12/04/2018 LYLA LANGE MD, Ot Z88.1 ALLERGY STATUS TO OTHER ANTIBIOTIC AGENT 12/04/2018 LYLA LANGE MD, Ot Z88.2 ALLERGY STATUS TO SULFONAMIDES STATUS 12/04/2018 LYLA LANGE MD, Ot Z88.8 ALLERGY STATUS TO OTH DRUG/MEDS/BIOL SUB 12/04/2018 LYLA LANGE MD, Ot Z90.49 ACQUIRED ABSENCE OF OTHER SPECIFIED PART 12/04/2018 LYLA LANGE MD, Ot Z90.710 ACQUIRED ABSENCE OF BOTH CERVIX AND UTER 12/04/2018 LYLA LANGE MD, Ot Z98.890 OTHER SPECIFIED POSTPROCEDURAL STATES 12/05/2018 BERNA SPRING MD Ot M19.041 PRIMARY OSTEOARTHRITIS, RIGHT HAND 12/05/2018 BERNA SPRING MD Ot M19.042 PRIMARY OSTEOARTHRITIS, LEFT HAND 12/05/2018 ELAINA RAMÍREZ Ot M12.9 ARTHROPATHY, UNSPECIFIED 12/05/2018 ELAINA RAMÍREZ Ot M51.36 OTHER INTERVERTEBRAL DISC DEGENERATION, 12/05/2018 YUMIKO PUGH DO Ot E03.9 HYPOTHYROIDISM, UNSPECIFIED 12/05/2018 YUMIKO PUGH DO Ot F32.9 MAJOR DEPRESSIVE DISORDER, SINGLE EPISOD 12/05/2018 YUMIKO PUGH DO Ot G89.29 OTHER CHRONIC PAIN 12/05/2018 YUMIKO PUGH DO Ot J45.909 UNSPECIFIED ASTHMA, UNCOMPLICATED 12/05/2018 YUMIKO PUGH DO Ot K21.9 GASTRO- ESOPHAGEAL REFLUX DISEASE WITHOUT 12/05/2018 YUMIKO PUGH DO Ot R10.31 RIGHT LOWER QUADRANT PAIN 12/05/2018 YUMIKO PUGH DO Ot R60.0 LOCALIZED EDEMA 12/05/2018 YUMIKO PUGH DO Ot Z87.19 PERSONAL HISTORY OF OTHER DISEASES OF TH 12/05/2018 YUMIKO PUGH DO Ot Z87.891 PERSONAL HISTORY OF NICOTINE DEPENDENCE 12/05/2018 YUMIKO PUGH DO, Ot Z88.1 ALLERGY STATUS TO OTHER ANTIBIOTIC AGENT 12/05/2018 YUMIKO PUGH DO Ot Z88.2 ALLERGY STATUS TO SULFONAMIDES STATUS 12/05/2018 YUMIKO PUGH DO Ot Z88.8 ALLERGY STATUS TO OTH DRUG/MEDS/BIOL SUB 12/05/2018 YUMIKO PUGH DO Ot Z90.49 ACQUIRED ABSENCE OF OTHER SPECIFIED PART 12/05/2018 YUMIKO PUGH DO Ot Z90.710 ACQUIRED ABSENCE OF BOTH CERVIX AND UTER 12/05/2018 YUMIKO PUGH DO Ot Z98.890 OTHER SPECIFIED POSTPROCEDURAL STATES 12/07/2018 LYLA LANGE MD Ot E03.9 HYPOTHYROIDISM, UNSPECIFIED 12/07/2018 LYLA LANGE MD Ot F32.9 MAJOR DEPRESSIVE DISORDER, SINGLE EPISOD 12/07/2018 LYLA LANGE MD Ot J45.909 UNSPECIFIED ASTHMA, UNCOMPLICATED 12/07/2018 LYLA LANGE MD Ot K21.9 GASTRO-ESOPHAGEAL REFLUX DISEASE WITHOUT 12/07/2018 LYLA LANGE MD Ot K43.9 VENTRAL HERNIA WITHOUT OBSTRUCTION OR GA 12/07/2018 LYLA LANGE MD Ot L76.34 POSTPROC SEROMA OF SKIN, SUBCU FOLLOWING 12/07/2018 LYLA LANGE MD Ot M41.9 SCOLIOSIS, UNSPECIFIED 12/07/2018 LYLA LANGE MD Ot R10.9 UNSPECIFIED ABDOMINAL PAIN 12/07/2018 LYLA LANGE MD Ot Z87.19 PERSONAL HISTORY OF OTHER DISEASES OF TH 12/07/2018 LYLA LANGE MD Ot Z87.891 PERSONAL HISTORY OF NICOTINE DEPENDENCE 12/07/2018 LYLA LANGE MD Ot Z88.1 ALLERGY STATUS TO OTHER ANTIBIOTIC AGENT 12/07/2018 LYLA LANGE MD Ot Z88.2 ALLERGY STATUS TO SULFONAMIDES STATUS 12/07/2018 LYLA LANGE MD Ot Z88.8 ALLERGY STATUS TO OTH DRUG/MEDS/BIOL SUB 12/07/2018 LYLA LANGE MD Ot Z90.49 ACQUIRED ABSENCE OF OTHER SPECIFIED PART 12/07/2018 LYLA LANGE MD Ot Z90.710 ACQUIRED ABSENCE OF BOTH CERVIX AND UTER 12/07/2018 LYLA LANGE MD Ot Z98.890 OTHER SPECIFIED POSTPROCEDURAL STATES 12/08/2018 YUMIKO PUGH DO Ot E03.9 HYPOTHYROIDISM, UNSPECIFIED 12/08/2018 WHITEWATER DO, YUMIKO Ot F32.9 MAJOR DEPRESSIVE DISORDER, SINGLE EPISOD 12/08/2018 WHITEWATER DO, YUMIKO Ot G89.29 OTHER CHRONIC PAIN 12/08/2018 PUGH , YUMIKO Ot J45.909 UNSPECIFIED ASTHMA, UNCOMPLICATED 12/08/2018 WHITEWATER DO, YUMIKO Ot K21.9 GASTRO- ESOPHAGEAL REFLUX DISEASE WITHOUT 12/08/2018 PUGH DO, YUMIKO Ot R10.31 RIGHT LOWER QUADRANT PAIN 12/08/2018 PUGH DO, YUMIKO Ot R60.0 LOCALIZED EDEMA 12/08/2018 PUGH DO, YUMIKO Ot Z87.19 PERSONAL HISTORY OF OTHER DISEASES OF TH 12/08/2018 PUGH DO, YUMIKO Ot Z87.891 PERSONAL HISTORY OF NICOTINE DEPENDENCE 12/08/2018 [facility], YUMIKO Ot Z88.1 ALLERGY STATUS TO OTHER ANTIBIOTIC AGENT 12/08/2018 WHITEWATER DO, YUMIKO Ot Z88.2 ALLERGY STATUS TO SULFONAMIDES STATUS 12/08/2018 [facility], YUMIKO Ot Z88.8 ALLERGY STATUS TO OTH DRUG/MEDS/BIOL SUB 12/08/2018 PUGH , YUMIKO Ot Z90.49 ACQUIRED ABSENCE OF OTHER SPECIFIED PART 12/08/2018 PUGH , YUMIKO Ot Z90.710 ACQUIRED ABSENCE OF BOTH CERVIX AND UTER 12/08/2018 [facility], YUMIKO Ot Z98.890 OTHER SPECIFIED POSTPROCEDURAL STATES 12/13/2018 ANISA IGNACIO, LYLA Murphy Ot K43.2 INCISIONAL HERNIA WITHOUT OBSTRUCTION OR 12/13/2018 LYLA LANGE MD Ot L76.34 POSTPROC SEROMA OF SKIN, SUBCU FOLLOWING 12/13/2018 ELAINA RAMÍREZ Ot G47.00 INSOMNIA, UNSPECIFIED 12/13/2018 ELAINA RAMÍREZ Ot G47.33 OBSTRUCTIVE SLEEP APNEA (ADULT) (PEDIATR 12/13/2018 ELAINA RAMÍREZ Ot G47.00 INSOMNIA, UNSPECIFIED 12/13/2018 ELAINA RAMÍREZ Ot G47.33 OBSTRUCTIVE SLEEP APNEA (ADULT) (PEDIATR 01/02/2019 LYLA LANGE MD, Ot K43.2 INCISIONAL HERNIA WITHOUT OBSTRUCTION OR 01/02/2019 LYLA LANGE MD Ot L76.34 POSTPROC SEROMA OF SKIN, SUBCU FOLLOWING Procedures Code Description [place] [address] ROUTINE VENIPUNCTURE 04/06/2014 64424 CBC 04/06/2014 03144 MAMMOGRAM, SCREENING 04/24/2014 24187 PAP SMEAR 04/24/2014 Q0091 PAP SMEAR OBTAIN SMEAR 04/24/2014 38488 ROUTINE VENIPUNCTURE 10/12/2014 69802 US LIVER ULTRASOUND 10/12/2014 44872 CMP 10/12/2014 86490 MAGNESIUM 10/12/2014 12243 TSH 10/12/2014 66874 CBC 10/12/2014 08187 Intravenous infusion, hydration; each ad GISELA RANDOLPH 07/12/2017 14217 Therapeutic, prophylactic, or diagnostic GISELA RANDOLPH 07/12/2017 53015 Therapeutic, prophylactic, or diagnostic GISELA RANDOLPH 07/12/2017 25438 Therapeutic, prophylactic, or diagnostic AGUSTÍN GISELA 07/12/2017 80911 Emergency department visit for the evalu GISELA [...] NEG Ketones, UA NEGATIVE mg/dL NEG Specific Phillips, UA 1.024 1.003-1.030 Blood, UA MODERATE NEG [...] FOR INFLUENZA A AND B ANTIGENS BY [facility] Automated blood complete blood count (hemogram) [...] Status Pt. Type Provider Facility Loc./Unit Complaint [id number] 10/12/2014 09:53:00 10/12/2014 23:59:59 CLS Outpatient KIM MITCHELL MD [id number] 06/18/2014 09:06:00 06/18/2014 23:59:59 CLS Outpatient DANIELA JACOBSON DDS [id number] 04/23/2014 15:22:00 04/23/2014 23:59:59 CLS Outpatient KIM MITCHELL MD [id number] 04/23/2014 15:22:00 04/23/2014 23:59:59 CLS Outpatient KIM MITCHELL MD [id number] 04/06/2014 11:00:00 04/06/2014 23:59:59 CLS Outpatient KIM MITCHELL MD [id number] 04/03/2014 17:30:00 04/03/2014 23:59:59 CLS Outpatient KIM MITCHELL MD [id number] 07/12/2017 16:59:00 07/13/2017 00:16:00 DIS [facility] ER Cardiac [id number] 12/09/2018 14:45:00 12/09/2018 23:59:59 CLS Outpatient MARITA SHER [facility] [id number] 05/04/2017 08:40:00 Document Registration [id number] 03/17/2017 09:40:00 Document Registration [id number] 12/12/2018 08:48:00 12/12/2018 23:59:59 CLS Outpatient LYLA LANGE MD [facility] RAD RECURRENT VENTRAL HERNIA [id number] 12/09/2018 19:22:00 12/10/2018 06:30:00 DIS Outpatient ELAINA RAMÍREZ [facility] SLEEP LYDIA G47.33 [id number] 12/05/2018 23:12:00 12/05/2018 23:42:00 DIS Emergency YUMIKO PUGH DO [facility] ER FS ABD PAIN;SWELLING IN HANDS,KNEES,THIGHS [id number] 12/04/2018 00:02:00 12/04/2018 04:48:00 DIS Emergency LYLA LANGE MD [facility] ER FS ABDOMINAL PAIN [id number] 12/01/2018 11:22:00 12/01/2018 23:59:59 CLS Outpatient BERNA SPRING MD [facility] RAD FS M19.041 M19.042 [id number] 11/28/2018 14:11:00 11/28/2018 17:24:00 DIS Emergency VEGA BAUGH MD [facility] ER FS ABD PAIN [id number] 11/22/2018 22:26:00 11/23/2018 02:10:00 DIS Emergency ELEN POLLACK MD [facility] ER FS ABD PAIN [id number] 11/14/2018 12:58:00 11/14/2018 23:59:59 CLS Outpatient ELAINA RAMÍREZ [facility] RAD LUMBAR DEGENERATIVE DISC DISEASE [id number] 11/08/2018 11:39:00 11/08/2018 14:36:00 DIS Emergency YUMIKO PUGH DO [facility] ER FS ABD PAIN [id number] 11/03/2018 02:47:00 11/03/2018 06:00:00 DIS Emergency LYLA LANGE MD [facility] ER FS LIGHT HEADED;HEADACHE [id number] 10/03/2018 22:16:00 10/04/2018 02:50:00 DIS Emergency LYLA LANGE MD [facility] ER FS ABD PAIN [id number] 09/01/2018 16:40:00 09/01/2018 17:08:00 DIS Emergency YUMIKO PUGH DO [facility] ER FS ABD PAIN,SOB [id number] 08/29/2018 12:40:00 08/29/2018 16:10:00 DIS Emergency LEONIDES ALFARO MD [facility] ER FS ABD PAIN [id number] 08/05/2018 14:05:00 08/05/2018 23:59:59 CLS Outpatient WIGGINSRICHA DOZER OPERATOR [facility] RAD BILATERAL LOWER EXTREMITY EDEMA [id number] 07/19/2018 07:12:00 07/19/2018 13:06:00 DIS Outpatient LUCIA IGNACIO FACC, ALI FACP CCDS [facility] CATH CHEST DISCOMFORT,PALPITATIONS,SOB,OBESITY [id number] 07/15/2018 14:57:00 07/15/2018 23:59:59 CLS Outpatient ECTOR GR DOZER OPERATOR [facility] RAD RLQ ABD PAIN [id number] 07/08/2018 14:13:00 07/08/2018 23:59:59 CLS Preadmit LUCIA IGNACIO FACC, ALI FACP CCDS [facility] CARD CHEST DISCOMFORT,PALPITATIONS,SOB,OBESITY [id number] 07/08/2018 14:13:00 07/08/2018 23:59:59 CLS Preadmit LUCIA IGNACIO FACC, ALI FACP CCDS [facility] CARD CHEST DISCOMFORT,PALPITATIONS,SOB,OBESITY [id number] 07/06/2018 14:48:00 07/06/2018 23:59:59 CLS Outpatient ARMANDO IGNACIO, ARIES Anglin (DDU) [facility] RT ASTHMA [id number] 06/27/2018 18:28:00 06/27/2018 22:02:00 DIS Emergency EDDI RAMIREZ [facility] ER LETHARGIC,BODY ACHES [id number] 05/14/2017 08:00:00 05/14/2017 23:59:59 CLS Preadmit JASON MOSQUERA [facility] RAD M25.562 ACUTE PAIN OF LEFT KNEE [id number] 12/20/2016 15:40:00 12/20/2016 19:24:00 DIS Emergency JEANNETTE BELLO APRN [facility] ER ABD PAIN [id number] 12/19/2016 21:59:00 12/19/2016 22:41:00 DIS Emergency RADHA AVERY DO [facility] ER L SIDE STOMACH PAIN/HOT FLASHES
[2019-01-08 12:54] LABS: BASOPHILS % (AUTO) 0 % (0-10); EOSINOPHILS # (AUTO) 0.1 10^3/uL (0.0-0.3); EOSINOPHILS % (AUTO) 1 % (0-10); HEMATOCRIT 39 % (35-52); LYMPHOCYTES # (AUTO) 2.1 X 10^3 (1.0-4.0); LYMPHOCYTES % (AUTO) 36 % (12-44); MEAN CORPUSCULAR HEMOGLOBIN 31 PG (25-34); MEAN CORPUSCULAR HGB CONC 33 G/DL (32-36); MEAN CORPUSCULAR VOLUME 94 FL (80-99); MEAN PLATELET VOLUME 10.5 FL (7.4-10.4); MONOCYTES # (AUTO) 0.5 X 10^3 (0.0-1.0); MONOCYTES % (AUTO) 8 % (0-12); NEUTROPHILS # (AUTO) 3.1 X 10^3 (1.8-7.8); NEUTROPHILS % (AUTO) 55 % (42-75); PLATELET COUNT 145 10^3/uL (130-400); RED CELL DISTRIBUTION WIDTH 13.1 % (10.0-14.5); WHITE BLOOD COUNT 5.7 10^3/uL (4.3-11.0)
[2019-01-08 13:05] LABS: INR 0.9 (0.8-1.4); PROTHROMBIN TIME PATIENT 12.9 SEC (12.2-14.7)
[2019-01-08 13:13] LABS: ALANINE AMINOTRANSFERASE 50 U/L (0-55); ALBUMIN 3.8 GM/DL (3.2-4.5); ALKALINE PHOSPHATASE 76 U/L (40-136); BILIRUBIN,TOTAL 0.4 MG/DL (0.1-1.0); BUN/CREATININE RATIO 21; CALCIUM 9.2 MG/DL (8.5-10.1); CARBON DIOXIDE 21 MMOL/L (21-32); CHLORIDE 106 MMOL/L (98-107); CREATININE SERUM 0.84 MG/DL (0.60-1.30); GFR ESTIMATED > 60; GLUCOSE 107 MG/DL (70-105); MAGNESIUM 1.7 MG/DL (1.8-2.4); POTASSIUM 4.2 MMOL/L (3.6-5.0); SODIUM 139 MMOL/L (135-145); TOTAL PROTEIN 6.4 GM/DL (6.4-8.2)
--- NOTE | 2019-01-08 13:18 | Diagnostic Imaging Report ---
INDICATION: Chest pain FINDINGS: Upright portable chest shows normal heart size and vascularity. The lungs are clear. There is no effusion or pneumothorax. There is no bony abnormality. IMPRESSION: No acute abnormality is seen with no change from 11/03/2018. Dictated by: Dictated on workstation # [id number]
[2019-01-08] MEDS ORDERED: HYDR-3455 PO (14:44)
[2019-01-08] MEDS ORDERED: HYDROcodone/APAP 5 MG/325 MG (LORTAB) TAB PO ONE (15:00)
== END 2019-01-08 14:54 | disposition home or self-care (01) ==
LOC: EDUNIT# 12:16 → ER 12:17
DX: R07.89 Other chest pain (principal); J45.909 Unspecified asthma, uncomplicated; K21.9 Gastro-esophageal reflux disease without esophagitis; E03.9 Hypothyroidism, unspecified; F32.9 Major depressive disorder, single episode, unspecified; Z90.49 Acquired absence of other specified parts of digestive tract; Z90.710 Acquired absence of both cervix and uterus; Z87.891 Personal history of nicotine dependence; Z88.2 Allergy status to sulfonamides; Z88.1 Allergy status to other antibiotic agents; Z88.8 Allergy status to other drugs, medicaments and biological substances
CPT/HCPCS: 36415; 71045; 80053; 83735; 83874; 84484; 85025; 85379; 85610; 85730; 93005; 93041

== ENCOUNTER 2019-01-24 02:21 | Emergency (ER) | payer MEDICAID ==
[~2019-01-24] VITALS: Ht 172.7 cm; Wt 145.1 kg
[~2019-01-24 02:21] MED LIST changes: +HYDR-3455 PO
--- NOTE | 2019-01-24 02:35 | ED Headache ---
General Chief Complaint: Head/Cervical Problems Stated Complaint: SEVERE HEADACHE Source: patient, RN notes reviewed, old records Exam Limitations: no limitations History of Present Illness Date Seen by Provider: Jan 24, 2019 Time Seen by Provider: 02:32 Initial Comments Patient presents c/ c/o severe COSME since yesterday. Allergies and Home Medications Allergies Coded Allergies: Sulfa (Sulfonamide Antibiotics) (Verified Allergy, Unknown, 06/27/18) hydroxyzine (Verified Allergy, Unknown, 06/27/18) prochlorperazine (Verified Allergy, Unknown, 12/20/16) tetracycline (Verified Allergy, Unknown, 06/27/18) Home Medications Cyclobenzaprine HCl 10 Mg Tablet, 10 MG PO BID PRN for PRN, (Reported) Dicyclomine HCl 10 Mg Capsule, 10 MG PO Q6H Prescribed by: VEGA BAUGH on 11/28/181710 Furosemide 40 Mg Tablet, 40 MG PO DAILY, (Reported) Gabapentin 300 Mg Capsule, 300 MG PO PRN, (Reported) Hydrocodone/Acetaminophen 1 Each Tablet, 1 TAB PO Q4-6HR Prescribed by: ELEN POLLACK on 11/23/18 0150 Hydrocodone/Acetaminophen 1 Each Tablet, 1-2 EACH PO Q6H PRN for PAIN-MODERATE Prescribed by: EVARISTO CORTES MD on 01/08/19 1444 Levothyroxine Sodium 50 Mcg Tablet, 50 MCG PO DAILY, (Reported) Meloxicam 15 Mg Tablet, 15 MG PO DAILY, (Reported) Ondansetron HCl 8 Mg Tablet, 8 MG PO Q6H PRN for NAUSEA/VOMITING-1ST LINE Prescribed by: LEONIDES ALFARO on 08/29/18 1605 Oxycodone HCl/Acetaminophen 1 Each Tablet, 1 TAB PO Q6H PRN for ABDOMINAL PAIN Prescribed by: LEONIDES ALFARO on 08/29/18 1605 Oxycodone HCl/Acetaminophen 1 Each Tablet, 1 TAB PO Q4H Prescribed by: VEGA BAUGH on 11/28/18 171 Oxycodone HCl/Acetaminophen 1 Each Tablet, 1 EACH PO Q4H PRN for PAIN-SEVERE Prescribed by: LYLA LANGE on 12/04/18 0441 Promethazine HCl 25 Mg Tablet, 25 MG PO Q6H PRN for NAUSEA/VOMITING Prescribed by: LYLA LANGE on 6/9/19 0441 Sucralfate 1 Gm Tablet, 1 GM PO ACHS Prescribed by: LYLA LANGE on 12/04/18440 Venlafaxine HCl 75 Mg Tab, 75 MG PO BID, (Reported) Patient Home Medication List Home Medication List Reviewed: Yes Review of Systems Review of Systems Constitutional: see HPI Gastrointestinal: see HPI, heartburn, nausea : No Psychiatric/Neurological: See HPI, Headache All Other Systems Reviewed Negative Unless Noted: Yes (Negative excepted noted.) Past Oymwwhk-Myxaaf-Hrkhlq Hx Patient Social History Type Used: Cigarettes Former Smoker, Quit: Jun 15, 1996 2nd Hand Smoke Exposure: No Recent Foreign Travel: No Contact w/Someone Who Travel: No Recent Hopitalizations: No Immunizations Up To Date Tetanus Booster (TDap): Less than 5yrs PED Vaccines UTD: Yes Date of Pneumonia Vaccine: Apr 18, 2013 Date of Influenza Vaccine: Apr 18, 2018 Seasonal Allergies Seasonal Allergies: No Past Medical History Surgeries: Yes (HERNIA X3) Abdominal, Appendectomy, Gallbladder, Hysterectomy Respiratory: No Asthma Currently Using CPAP: No Currently Using BIPAP: No Cardiac: No Chronic Edema/Swelling Neurological: No 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 0oz. 136.743019zs; 48.6 BMI Method:Stated General Appearance: WD/WN, mild distress, obese HEENT: PERRL/EOMI, normal ENT inspection Neck: supple Cardiovascular: regular rate, rhythm Respiratory: no respiratory distress Psychiatric: alert, oriented x 3, depressed affect Crainal Nerves: normal hearing, normal speech, PERRL Coordination/Gait: normal finger to nose Skin: warm/dry Progress/Results/Core Measures Results/Orders My Orders Orders - LANDEN CHAVIS DO Promethazine Injection (Phenergan Injec (01/24/19 02:45) Ketorolac Injection (Toradol Injection) (01/24/19 02:45) Dexamethasone Injection (Decadron Inject (01/24/19 02:45) Im/Sub-Q Injection Non-Ab Ed (01/24/19 ) Im/Sub-Q Injection Non-Ab Ed (01/24/19 ) Vital Signs/I&O 01/24/19 01/24/19 02:32 03:08 Pulse 85 85 Resp 16 16 B/P (MAP) 131/67 (88) 131/67 (88) Pulse Ox 96 96 O2 Delivery Simple Mask Departure Impression Primary Impression: Headache Disposition: 01 HOME, SELF-CARE Condition: Stable Departure-Patient Inst. Referrals: SELF,MARITA IGNACIO (PCP/Family) Primary Care Physician Patient Instructions: Headache, Adult (DC) Add. Discharge Instructions: RECOMMEND CONTACTING/FOLLOWING UP WITH YOUR PCP LATER TODAY REGARDING YOUR QUESTIONS/CONCERNS REGARDING YOUR THYROID. THEY MAY WISHES TO ORDER LABS TO CHECK IT WHICH AREN'T AVAILABLE THRU THE ER. All discharge instructions review ed with patient and/or family. Voiced understanding. LANDEN CHAVIS DO Jan 24, 2019 02:35
[2019-01-24] MEDS ORDERED: DEXAMETHASONE 10 MG/ML (DECADRON) 1 ML VIAL IM ONE (02:45)
[2019-01-24] MEDS ORDERED: KETOROLAC 30 MG/ML VIAL IM ONE (02:45)
[2019-01-24] MEDS ORDERED: PROMETHAZINE INJ 25 MG/ML (PHENERGAN) AMP IM ONE (02:45)
[2019-01-24 03:08] VITALS: BP 131/67
== END 2019-01-24 03:07 | disposition home or self-care (01) ==
LOC: EDUNIT# 02:21 → ER FS 02:23
DX: R51 Headache (principal); J45.909 Unspecified asthma, uncomplicated; F32.9 Major depressive disorder, single episode, unspecified; K21.9 Gastro-esophageal reflux disease without esophagitis; E03.9 Hypothyroidism, unspecified; Z90.710 Acquired absence of both cervix and uterus; Z88.2 Allergy status to sulfonamides; Z88.8 Allergy status to other drugs, medicaments and biological substances; Z87.891 Personal history of nicotine dependence; Z90.49 Acquired absence of other specified parts of digestive tract
CPT/HCPCS: 96372; 99284

== ENCOUNTER 2019-01-26 16:44 | Emergency (ER) | payer MEDICAID ==
[~2019-01-26] VITALS: Ht 170.2 cm; Wt 145.1 kg
--- NOTE | 2019-01-26 17:10 | ED General ---
General Chief Complaint: Head/Cervical Problems Stated Complaint: HEADACHE,DIZZY Nursing Triage Note: patient states has had a headache for one week. This morning woke up feeling weak and shaky as well as the headache. Has also had some nausea and diarrhea. States just started using cpap machine two nights ago and has been sleeping well. Denies being outside in the heat. Denies fevers or chills. Nursing Sepsis Screen: No Definite Risk History of Present Illness Date Seen by Provider: Jan 26, 2019 Time Seen by Provider: 16:55 Initial Comments 48-year-old female presents because she "feels shaky" patient also reports that she has a headache that has been gone for a week. Patient was seen 2 days ago for her headache. The patient reports maybe a little nauseous some diarrhea. Patient states that she "doesn't feel well" but can't tell me how. Patient thinks that maybe she's had problems with her thyroid. Patient has had frequent ER visits. Patient reports she is not here for the headache but because she "feels shaky" like she hasn't eaten. Allergies and Home Medications Allergies Coded Allergies: Sulfa (Sulfonamide Antibiotics) (Verified Allergy, Unknown, 06/27/18) hydroxyzine (Verified Allergy, Unknown, 06/27/18) prochlorperazine (Verified Allergy, Unknown, 12/20/16) tetracycline (Verified Allergy, Unknown, 06/27/18) Home Medications Cyclobenzaprine HCl 10 Mg Tablet, 10 MG PO BID PRN for PRN, (Reported) Dicyclomine HCl 10 Mg Capsule, 10 MG PO Q6H Prescribed by: VEGA BAUGH on 11/28/18 1711 Furosemide 40 Mg Tablet, 40 MG PO DAILY, (Reported) Gabapentin 300 Mg Capsule, 300 MG PO PRN, (Reported) Hydrocodone/Acetaminophen 1 Each Tablet, 1 TAB PO Q4-6HR Prescribed by: ELEN POLLACK on 11/23/18 0150 Hydrocodone/Acetaminophen 1 Each Tablet, 1-2 EACH PO Q6H PRN for PAIN-MODERATE Prescribed by: EVARISTO CORTES MD on 01/08/19 1444 Levothyroxine Sodium 50 Mcg Tablet, 50 MCG PO DAILY, (Reported) Meloxicam 15 Mg Tablet, 15 MG PO DAILY, (Reported) Ondansetron HCl 8 Mg Tablet, 8 MG PO Q6H PRN for NAUSEA/VOMITING-1ST LINE Prescribed by: LEONIDES ALFARO on 08/29/18 1605 Oxycodone HCl/Acetaminophen 1 Each Tablet, 1 TAB PO Q6H PRN for ABDOMINAL PAIN Prescribed by: LEONIDES ALFARO on 08/29/18 1605 Oxycodone HCl/Acetaminophen 1 Each Tablet, 1 TAB PO Q4H Prescribed by: VEGA BAUGH on 11/28/18 1711 Oxycodone HCl/Acetaminophen 1 Each Tablet, 1 EACH PO Q4H PRN for PAIN-SEVERE Prescribed by: LYLA LANGE on 12/04/18440 Promethazine HCl 25 Mg Tablet, 25 MG PO Q6H PRN for NAUSEA/VOMITING Prescribed by: LYLA LANGE on 12/04/18440 Sucralfate 1 Gm Tablet, 1 GM PO ACHS Prescribed by: LYLA LANGE on 12/04/18440 Venlafaxine HCl 75 Mg Tab, 75 MG PO BID, (Reported) Patient Home Medication List Home Medication List Reviewed: Yes Review of Systems Review of Systems Constitutional: No chills, No dizziness, No fever; malaise Respiratory: cough Gastrointestinal: No abdominal pain; diarrhea, nausea Genitourinary: no symptoms reported : No Musculoskeletal: see HPI Skin: no symptoms reported Psychiatric/Neurological: Headache Past Yxjoxjc-Wmikiu-Fjabsr Hx Past Med/Social Hx: Reviewed Nursing Past Med/Soc Hx Patient Social History Alcohol Use: Denies Use Recreational Drug Use: No Smoking Status: Former Smoker Type Used: Cigarettes Former Smoker, Quit: Jun 15, 1996 2nd Hand Smoke Exposure: No Recent Foreign Travel: No Contact w/Someone Who Travel: No Recent Infectious Disease Expo: No Recent Hopitalizations: No Physical Abuse: No Sexual Abuse: No Mistreated: No Fear: No Immunizations Up To Date Tetanus Booster (TDap): Less than 5yrs PED Vaccines UTD: Yes Date of Pneumonia Vaccine: Apr 18, 2013 Date of Influenza Vaccine: Apr 18, 2018 Seasonal Allergies Seasonal Allergies: No Past Medical History Surgeries: Yes (HERNIA X3) Abdominal, Appendectomy, Gallbladder, Hysterectomy Respiratory: No Asthma Currently Using CPAP: No Currently Using BIPAP: No Cardiac: No Chronic Edema/Swelling 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 0oz. 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 II- XII Norm as Tested Skin: Normal Color, Warm/Dry Progress/Results/Core Measures Suspected Sepsis Recent Fever Within 48 Hours: No Infection Criteria Present: None New/Unexplained Altered Menta: No Sepsis Screen: No Definite Risk SIRS Temperature:97.9 Pulse: 70 Respiratory Rate: 18 Laboratory Tests 01/26/19 17:10: White Blood Count 8.8 Blood Pressure 170 /87 Mean: 114 Laboratory Tests 01/26/19 17:10: Creatinine 1.10, Platelet Count 157, Total Bilirubin 0.3 Results/Orders Lab Results Laboratory Tests Test 01/26/19 17:10 01/26/19 17:12 Range/Units White Blood Count 8.8 4.3-11.0 10^3/uL Red Blood Count 4.54 4.35-5.85 10^6/uL Hemoglobin 14.5 11.5-16.0 G/DL Hematocrit 43 35-52 % Mean Corpuscular Volume 95 80-99 FL Mean Corpuscular Hemoglobin 32 25-34 PG Mean Corpuscular Hemoglobin Concent 34 32-36 G/DL Red Cell Distribution Width 13.4 10.0-14.5 % Platelet Count 157 130-400 10^3/uL Mean Platelet Volume 10.9 H 7.4-10.4 FL Neutrophils (%) (Auto) 63 42-75 % Lymphocytes (%) (Auto) 27 12-44 % Monocytes (%) (Auto) 10 0-12 % Eosinophils (%) (Auto) 1 0-10 % Basophils (%) (Auto) 0 0-10 % Neutrophils # (Auto) 5.5 1.8-7.8 X 10^3 Lymphocytes # (Auto) 2.3 1.0-4.0 X 10^3 Monocytes # (Auto) 0.8 0.0-1.0 X 10^3 Eosinophils # (Auto) 0.0 0.0-0.3 10^3/uL Basophils # (Auto) 0.0 0.0-0.1 10^3/uL Urine Color YELLOW Urine Clarity CLEAR Urine pH 6.5 5-9 Urine Specific [place] 1.020 1.016-1.022 Urine Protein 1+ H NEGATIVE Urine Glucose (UA) NEGATIVE NEGATIVE Urine Ketones NEGATIVE NEGATIVE Urine Nitrite NEGATIVE NEGATIVE Urine Bilirubin NEGATIVE NEGATIVE Urine Urobilinogen 0.2 NORMAL MG/DL Urine Leukocyte Esterase NEGATIVE NEGATIVE Urine RBC (Auto) 3+ H NEGATIVE Urine RBC 10-25 H /HPF Urine WBC 2-5 /HPF Urine Squamous Epithelial Cells >50 H /HPF Urine Crystals NONE /LPF Urine Bacteria FEW H /HPF Urine Casts NONE /LPF Urine Mucus MODERATE H /LPF Urine Culture Indicated NO Sodium Level 140 135-145 MMOL/L Potassium Level 3.4 L 3.6-5.0 MMOL/L Chloride Level 97 L 98-107 MMOL/L Carbon Dioxide Level 29 21-32 MMOL/L Anion Gap 14 5-14 MMOL/L Blood Urea Nitrogen 18 7-18 MG/DL Creatinine 1.10 0.60-1.30 MG/DL Estimat Glomerular Filtration Rate 53 BUN/Creatinine Ratio 16 Glucose Level 105 70-105 MG/DL Calcium Level 9.6 8.5-10.1 MG/DL Corrected Calcium 9.4 8.5-10.1 MG/DL Total Bilirubin 0.3 0.1-1.0 MG/DL Aspartate Amino Transf (AST/SGOT) 31 5-34 U/L Alanine Aminotransferase (ALT/SGPT) 48 0-55 U/L Alkaline Phosphatase 85 40-136 U/L Total Protein 7.2 6.4-8.2 GM/DL Albumin 4.2 3.2-4.5 GM/DL Urine Opiates Screen NEGATIVE NEGATIVE Urine Oxycodone Screen NEGATIVE NEGATIVE Urine Methadone Screen NEGATIVE NEGATIVE Urine Propoxyphene Screen NEGATIVE NEGATIVE Urine Barbiturates Screen NEGATIVE NEGATIVE Ur Tricyclic Antidepressants Screen NEGATIVE NEGATIVE Urine Phencyclidine Screen POSITIVE H NEGATIVE Urine Amphetamines Screen NEGATIVE NEGATIVE Urine Methamphetamines Screen NEGATIVE NEGATIVE Urine Benzodiazepines Screen NEGATIVE NEGATIVE Urine Cocaine Screen NEGATIVE NEGATIVE Urine Cannabinoids Screen NEGATIVE NEGATIVE Glucometer 101 70-110 MG/DL My Orders Orders - JUAN KUMAR DO Cbc With Automated Diff (01/26/19 17:06) Comprehensive Metabolic Panel (01/26/19 17:06) Drug Screen Stat (Urine) (01/26/19 17:06) Ua Culture If Indicated (01/26/19 17:06) Accucheck Stat ONCE (01/26/19 17:06) Ekg Tracing (01/26/19 17:06) Hs C Reactive Protein (01/26/19 17:10) Vital Signs/I&O 01/26/19 16:45 Temp 97.9 Pulse 70 Resp 18 B/P (MAP) 170/87 (114) Pulse Ox 94 Capillary Refill : Less Than 3 Seconds Blood Pressure Mean: 114 ECG Initial ECG Impression Date: Jan 26, 2019 Initial ECG Impression Time: 17:28 Initial ECG Rhythm: Normal Sinus Initial ECG Intervals QRS 115 Initial ECG Impression: Nonspecific Changes Comment non specific changes Departure Impression Primary Impression: Viral syndrome Additional Impression: Headache Qualified Codes: R51 - Headache Disposition: 01 HOME, SELF-CARE Condition: Stable Departure-Patient Inst. Referrals: MARITA SHER MD (PCP/Family) Primary Care Physician follow up within next week for recheck of symptoms, cont of care Patient Instructions: Viral Syndrome (DC), Headache, Adult (DC) JUAN KUMAR DO Jan 26, 2019 17:10
[2019-01-26 17:45] LABS: HEMATOCRIT 43 % (35-52); HEMOGLOBIN 14.5 G/DL (11.5-16.0); MEAN CORPUSCULAR HEMOGLOBIN 32 PG (25-34); MEAN CORPUSCULAR HGB CONC 34 G/DL (32-36); MEAN CORPUSCULAR VOLUME 95 FL (80-99); RED CELL DISTRIBUTION WIDTH 13.4 % (10.0-14.5); WHITE BLOOD COUNT 8.8 10^3/uL (4.3-11.0)
[2019-01-26 17:46] LABS: BASOPHILS % (AUTO) 0 % (0-10); EOSINOPHILS % (AUTO) 1 % (0-10); LYMPHOCYTES # (AUTO) 2.3 X 10^3 (1.0-4.0); LYMPHOCYTES % (AUTO) 27 % (12-44); MEAN PLATELET VOLUME 10.9 FL (7.4-10.4); MONOCYTES # (AUTO) 0.8 X 10^3 (0.0-1.0); MONOCYTES % (AUTO) 10 % (0-12); NEUTROPHILS # (AUTO) 5.5 X 10^3 (1.8-7.8); NEUTROPHILS % (AUTO) 63 % (42-75); PLATELET COUNT 157 10^3/uL (130-400)
[2019-01-26 17:47] LABS: CLARITY,URINE CLEAR; COLOR,URINE YELLOW; PH,URINE 6.5 (5-9)
[2019-01-26 17:52] LABS: GLUCOSE, URINE (UA) NEGATIVE (NEGATIVE); KETONES,URINE NEGATIVE (NEGATIVE); NITRITE,URINE NEGATIVE (NEGATIVE); PROTEIN,URINE 1+ (NEGATIVE)
[2019-01-26 17:53] LABS: BILIRUBIN,URINE NEGATIVE (NEGATIVE); LEUKOCYTE ESTERASE ,URINE NEGATIVE (NEGATIVE); UROBILINOGEN,URINE 0.2 MG/DL (NORMAL)
[2019-01-26 17:54] LABS: BACTERIA,URINE FEW /HPF; SQUAMOUS EPITHELIAL CELL,UR >50 /HPF
[2019-01-26 18:02] LABS: AMPHETAMINE SCREEN, URINE NEGATIVE (NEGATIVE); BARBITURATE SCREEN URINE NEGATIVE (NEGATIVE); BENZODIAZEPINES SCREEN URINE NEGATIVE (NEGATIVE); CANNABINOID SCREEN, URINE NEGATIVE (NEGATIVE); COCAINE SCREEN URINE NEGATIVE (NEGATIVE); METHADONE STAT NEGATIVE (NEGATIVE); METHAMPHETAMINE SCREEN URINE S NEGATIVE (NEGATIVE); OPIATE SCREEN URINE NEGATIVE (NEGATIVE); OXYCODONE STAT NEGATIVE (NEGATIVE); PROPOXYPHENE STAT NEGATIVE (NEGATIVE); TRICYCLIC ANTIDEPRESSANTS SCRE NEGATIVE (NEGATIVE)
[2019-01-26 18:13] LABS: POTASSIUM 3.4 MMOL/L (3.6-5.0)
[2019-01-26 18:14] LABS: BILIRUBIN,TOTAL 0.3 MG/DL (0.1-1.0); CALCIUM 9.6 MG/DL (8.5-10.1); CREATININE SERUM 1.1 MG/DL (0.60-1.30)
[2019-01-26 18:15] LABS: ALBUMIN 4.2 GM/DL (3.2-4.5); TOTAL PROTEIN 7.2 GM/DL (6.4-8.2)
[2019-01-26 18:46] VITALS: BP 124/62
== END 2019-01-26 18:48 | disposition home or self-care (01) ==
LOC: EDUNIT# 16:44 → ER FS 16:45
DX: B34.9 Viral infection, unspecified (principal); J45.909 Unspecified asthma, uncomplicated; K21.9 Gastro-esophageal reflux disease without esophagitis; E03.9 Hypothyroidism, unspecified; F32.9 Major depressive disorder, single episode, unspecified; Z88.2 Allergy status to sulfonamides; Z88.1 Allergy status to other antibiotic agents; Z87.891 Personal history of nicotine dependence; Z90.49 Acquired absence of other specified parts of digestive tract; Z90.710 Acquired absence of both cervix and uterus
CPT/HCPCS: 36415; 80053; 80306; 81000; 82962; 85025; 86141; 93005

== ENCOUNTER 2019-02-09 22:26 | Emergency (ER) | payer MEDICAID ==
[~2019-02-09] VITALS: Ht 170.2 cm; Wt 145.1 kg
--- NOTE | 2019-02-09 22:55 | ED Lower Extremity ---
General Chief Complaint: Lower Extremity Stated Complaint: LT LEG INJ AND SWELLING Nursing Triage Note: PT COMPLAINING OF LEFT ANKLE PAIN AFTER FALLING OFF OF A CURB WEDNESDAY. PT STATES IT HURTS TO PUT ANY PRESSURE ON THAT LEG Nursing Sepsis Screen: No Definite Risk History of Present Illness Date Seen by Provider: Feb 09, 2019 Time Seen by Provider: 22:40 Initial Comments The patient is a pleasant morbidly obese 48-year-old female who presents for evaluation of left lower calf and ankle pain. She states that she fell off of a curb on Wednesday while talking on the phone and operative intervention and has been having calf pain since that time. Initially she was having hip, knee, calf, and ankle pain and headache on the lungs to look her up off the ground because she could not get back up. Since Wednesday she has been getting around at home by putting most of her weight on her right lower extremity. The primary reason for her coming in tonight aside from the pain was to make sure she did not have a blood clot. She did not hit her head or lose consciousness and has no other complaints. She specifically denies any chest pain or shortness of breath, history of DVT or PE, abdominal or back pain. Onset: other (3 days ago) Severity: moderate Pain/Injury Location: left hip, left knee, left ankle Method of Injury: fell Modifying Factors: Improves With Movement (makes it worse) Allergies and Home Medications Allergies Coded Allergies: Sulfa (Sulfonamide Antibiotics) (Verified Allergy, Unknown, 06/27/18) hydroxyzine (Verified Allergy, Unknown, 06/27/18) prochlorperazine (Verified Allergy, Unknown, 12/20/16) tetracycline (Verified Allergy, Unknown, 06/27/18) Home Medications Cyclobenzaprine HCl 10 Mg Tablet, 10 MG PO BID PRN for PRN, (Reported) Dicyclomine HCl 10 Mg Capsule, 10 MG PO Q6H Prescribed by: VEGA BAUGH on 11/28/18 1711 Furosemide 40 Mg Tablet, 40 MG PO DAILY, (Reported) Gabapentin 300 Mg Capsule, 300 MG PO PRN, (Reported) Hydrocodone/Acetaminophen 1 Each Tablet, 1 TAB PO Q4-6HR Prescribed by: ELEN POLLACK on 11/23/18 0150 Hydrocodone/Acetaminophen 1 Each Tablet, 1-2 EACH PO Q6H PRN for PAIN-MODERATE Prescribed by: EVARISTO CORTES MD on 01/08/19 1444 Levothyroxine Sodium 50 Mcg Tablet, 50 MCG PO DAILY, (Reported) Meloxicam 15 Mg Tablet, 15 MG PO DAILY, (Reported) Ondansetron HCl 8 Mg Tablet, 8 MG PO Q6H PRN for NAUSEA/VOMITING-1ST LINE Prescribed by: LEONIDES ALFARO on 08/29/18 1605 Oxycodone HCl/Acetaminophen 1 Each Tablet, 1 TAB PO Q6H PRN for ABDOMINAL PAIN Prescribed by: LEONIDES ALFARO on 08/29/18 1605 Oxycodone HCl/Acetaminophen 1 Each Tablet, 1 TAB PO Q4H Prescribed by: VEGA BAUGH on 11/28/18 1711 Oxycodone HCl/Acetaminophen 1 Each Tablet, 1 EACH PO Q4H PRN for PAIN-SEVERE Prescribed by: LYLA LANGE on 12/04/18 044 Promethazine HCl 25 Mg Tablet, 25 MG PO Q6H PRN for NAUSEA/VOMITING Prescribed by: LYLA LANGE on 12/04/18 044 Sucralfate 1 Gm Tablet, 1 GM PO ACHS Prescribed by: LYLA LANGE on 12/04/18440 Venlafaxine HCl 75 Mg Tab, 75 MG PO BID, (Reported) Patient Home Medication List Home Medication List Reviewed: Yes Review of Systems Constitutional: no symptoms reported EENTM: no symptoms reported Respiratory: no symptoms reported Cardiovascular: no symptoms reported Gastrointestinal: no symptoms reported Genitourinary: no symptoms reported Musculoskeletal: no symptoms reported Skin: no symptoms reported Psychiatric/Neurological: No Symptoms Reported All Other Systems Reviewed Negative Unless Noted: Yes Past Xyizpgj-Pygqyk-Wpeujt Hx Past Med/Social Hx: Reviewed Nursing Past Med/Soc Hx Patient Social History Alcohol Use: Denies Use Recreational Drug Use: No Type Used: Cigarettes Former Smoker, Quit: Jun 15, 1996 2nd Hand Smoke Exposure: No Recent Foreign Travel: No Contact w/Someone Who Travel: No Recent Infectious Disease Expo: No Recent Hopitalizations: No Physical Abuse: No Sexual Abuse: No Mistreated: No Immunizations Up To Date Tetanus Booster (TDap): Less than 5yrs PED Vaccines UTD: Yes Date of Pneumonia Vaccine: Apr 18, 2013 Date of Influenza Vaccine: Apr 18, 2018 Seasonal Allergies Seasonal Allergies: No Past Medical History Surgeries: Yes (HERNIA X3) Abdominal, Appendectomy, Gallbladder, Hysterectomy Respiratory: No Asthma Currently Using CPAP: No Currently Using BIPAP: No Cardiac: No Chronic Edema/Swelling 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 0oz. [id number]; 48.6 BMI Method:Stated General Appearance: WD/WN, no apparent distress, obese HEENT: PERRL/EOMI, TMs normal Neck: non-tender, full range of motion, normal inspection Cardiovascular: regular rate, rhythm, no edema Respiratory: chest non-tender, lungs clear, normal breath sounds, no respirator y distress Gastrointestinal: non tender, soft Back: normal inspection, no vertebral tenderness Hips: left hip pain (mild left lateral hip tenderness) Legs: left leg soft tissue tenderness Knees: bilateral knee non-tender, bilateral knee normal inspection, bilateral knee normal range of motion Ankles: bilateral ankle normal range of motion; left ankle soft tissue tenderness (and mild left lower calf tenderness, no bony ankle tenderness) Feet: bilateral foot non-tender, bilateral foot normal inspection, bilateral foot normal range of motion Neurologic/Tendon: normal sensation, normal motor functions, normal tendon functions, responds to pain Neurologic/Psychiatric: procurement internship II-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 nml as tested, alert, normal mood/affect, oriented x 3 Skin: normal color, warm/dry The patient has no bony tenderness in the knee or ankle, she has mild bony tenderness in the left lateral hip but she has full range of motion of all these areas without any detectable swelling There is some mild questionable swelling and soft tissue tenderness over the left lower/upper Achilles, no ecchymosis, no bruising, no erythema, no warmth Progress/Results/Core Measures Results/Orders My Orders Orders - WILLIAM,YOLETTE B DO Delgado Bandage (02/09/19 22:48) Ice: Apply To Affected Area (02/09/19 22:48) Hydrocodone/Apap 5/325 Tablet (Lortab 5 (02/09/19 23:00) Vital Signs/I&O 02/09/19 22:37 Temp 98.1 Pulse 84 Resp 18 B/P (MAP) 168/101 (123) Pulse Ox 95 O2 Delivery Room Air Blood Pressure Mean: 123 Progress Progress Note : Progress Note @2255 - Explained to the patient that based on her story and physical examination it is most likely she has a muscle strain and/or possible hematoma i n the left calf. It is very unlikely that this is a DVT that happened at the same time as a fall during which she injured the leg. I also explained the patient that we do not have ultrasound available and that this is the methodology used to evaluate whether someone has a blood clot. I explained to the patient that I would be happy to order an outpatient ultrasound to be performed at [facility] if she would like but that I do not believe she has a DVT. Additionally, I explained that since the patient has been ambulating at home and that she has no focal bony tenderness, and has full range of motion of all of these areas, but I do not think x-rays are warranted of the left hip, left knee, or left ankle and she agrees. We will give the patient an A ce wrap to help provide some compression to the left calf as well as some ice and she will go home with a prescription for Dewy Rose. Advised the patient to follow up with her PCP in the next 1-2 days and to return to the emergency Department immediately for new or worsening symptoms. She expresses verbal understanding and agreement with the plan and is stable for discharge home. Departure Impression Primary Impression: Injury of calf Additional Impression: Pain in left lower leg Disposition: 01 HOME, SELF-CARE Condition: Stable Departure-Patient Inst. Decision time for Depature: 22:58 Referrals: SELF,MARITA IGNACIO (PCP/Family) Primary Care Physician Patient Instructions: Contusion (DC), HEMATOMA, Sprain (DC) Add. Discharge Instructions: Disposition prescribed medication as directed. Follow-up with your doctor in the next 1-2 days. Return to the emergency department for new or worsening symptoms. At your request we have set up an outpatient ultrasound at [facility] for you to further evaluate your injury but do not feel you need to be transferred tonight for an emergent ultrasound. If your pain continues after the ultrasound you may eventually require an MRI which your doctor can help you set up. MRI is not available here. Scripts Hydrocodone/Acetaminophen (Dewy Rose 7.5-325 Tablet) 1 Each Tablet 1 TAB PO Q4H for PAIN-MODERATE MDD 6 TABS for 7 Days, #15 TAB Prov: YOLETTE THOMAS DO 02/09/19 YOLETTE THOMAS DO Feb 09, 2019 22:55
[2019-02-09] MEDS ORDERED: HYDROcodone/APAP 5 MG/325 MG (LORTAB) TAB PO ONE (23:00)
[2019-02-09] MEDS ORDERED: HYDR-4227 PO (23:01)
[2019-02-09 23:14] VITALS: BP 141/90
== END 2019-02-09 23:14 | disposition home or self-care (01) ==
LOC: EDUNIT# 22:26 → ER FS 22:28
DX: S89.92XA Unspecified injury of left lower leg, initial encounter (principal); M79.662 Pain in left lower leg; J45.909 Unspecified asthma, uncomplicated; K21.9 Gastro-esophageal reflux disease without esophagitis; E03.9 Hypothyroidism, unspecified; F32.9 Major depressive disorder, single episode, unspecified; E66.01 Morbid (severe) obesity due to excess calories; Z88.2 Allergy status to sulfonamides; Z88.1 Allergy status to other antibiotic agents; Z88.8 Allergy status to other drugs, medicaments and biological substances; Z87.891 Personal history of nicotine dependence; Z98.890 Other specified postprocedural states; Z90.710 Acquired absence of both cervix and uterus; Z68.43 Body mass index [BMI] 50.0-59.9, adult; W17.89XA Other fall from one level to another, initial encounter
CPT/HCPCS: 99283

== ENCOUNTER 2019-02-15 19:44 | Emergency (ER) | payer MEDICAID ==
[~2019-02-15] VITALS: Ht 170.2 cm; Wt 145.1 kg
[~2019-02-15 19:44] MED LIST changes: +HYDR-4227 PO
--- NOTE | 2019-02-15 20:24 | ED General ---
General Chief Complaint: General Problems/Pain Stated Complaint: MEDICAL COMPLICATIONS Nursing Triage Note: PT. ARRIVED WITH THE C/O HER DRAIN WAS NOT DRAINING AND THE TUBING WAS KINKED. PT. HAD PUT TAPE ON THE TUBING. THE DRAIN WAS NOT CLOSED SO THIS RN SHOWED THE PATIENT HOW TO CLOSE THE DRAIN AND MOVED THE DRAIN SO IT WOULD NOT KINK. PT. HAD A PROCEEDURE DONE AT YESTERDAY. Nursing Sepsis Screen: No Definite Risk Source of Information: Patient History of Present Illness Date Seen by Provider: Feb 15, 2019 Time Seen by Provider: 20:24 Initial Comments 48-year-old female presenting to the emergency department with complaints that her drain that was placed into her lower abdomen and was not working. She had this placed by Dr. Lion and interventional radiology at in [place]. She was released yesterday and has been home just over 24 hours. She has had increasing pain with nausea throughout the day. She has not been able to get any drainage out of the wound. On presentation to the ER the drain does not have a vacuum seal because the plug is not inserted correctly. Also it was not compressed to obtain an actual vacuum. She has no active bleeding from around the drainage tube where it is inserted. The dressing over the drain has old dried blood on it. She has no fever or chills. She complains of increased pain to the lower abdomen where the drain is placed. She has no fever or chills. Allergies and Home Medications Allergies Coded Allergies: Sulfa (Sulfonamide Antibiotics) (Verified Allergy, Unknown, 06/27/18) hydroxyzine (Verified Allergy, Unknown, 06/27/18) prochlorperazine (Verified Allergy, Unknown, 12/20/16) tetracycline (Verified Allergy, Unknown, 06/27/18) Home Medications Cyclobenzaprine HCl 10 Mg Tablet, 10 MG PO BID PRN for PRN, (Reported) Dicyclomine HCl 10 Mg Capsule, 10 MG PO Q6H Prescribed by: VEGA BAUGH on 11/28/18 1711 Furosemide 40 Mg Tablet, 40 MG PO DAILY, (Reported) Gabapentin 300 Mg Capsule, 300 MG PO PRN, (Reported) Hydrocodone/Acetaminophen 1 Each Tablet, 1 TAB PO Q4-6HR Prescribed by: ELEN POLLACK on 11/23/18 0150 Hydrocodone/Acetaminophen 1 Each Tablet, 1-2 EACH PO Q6H PRN for PAIN-MODERATE Prescribed by: EVARISTO CORTES MD on 01/08/19 1444 Hydrocodone/Acetaminophen 1 Each Tablet, 1 TAB PO Q4H Prescribed by: YOLETTE THOMAS on 02/09/19 2301 Levothyroxine Sodium 50 Mcg Tablet, 50 MCG PO DAILY, (Reported) Meloxicam 15 Mg Tablet, 15 MG PO DAILY, (Reported) Ondansetron HCl 8 Mg Tablet, 8 MG PO Q6H PRN for NAUSEA/VOMITING-1ST LINE Prescribed by: LEONIDES ALFARO on 08/29/18 1605 Oxycodone HCl/Acetaminophen 1 Each Tablet, 1 TAB PO Q6H PRN for ABDOMINAL PAIN Prescribed by: LEONIDES ALFARO on 08/29/18 1605 Oxycodone HCl/Acetaminophen 1 Each Tablet, 1 TAB PO Q4H Prescribed by: VEGA BAUGH on 11/28/18 1711 Oxycodone HCl/Acetaminophen 1 Each Tablet, 1 EACH PO Q4H PRN for PAIN-SEVERE Prescribed by: LYLA LANGE on 12/04/18 044 Promethazine HCl 25 Mg Tablet, 25 MG PO Q6H PRN for NAUSEA/VOMITING Prescribed by: LYLA LANGE on 12/04/18 044 Sucralfate 1 Gm Tablet, 1 GM PO ACHS Prescribed by: LYLA LANGE on 12/04/18 044 Venlafaxine HCl 75 Mg Tab, 75 MG PO BID, (Reported) Patient Home Medication List Home Medication List Reviewed: Yes Review of Systems Review of Systems Constitutional: No chills, No fever; malaise EENTM: no symptoms reported Respiratory: no symptoms reported Cardiovascular: no symptoms reported Gastrointestinal: nausea; No vomiting; other (pain in lower abdomen where the drain is inserted) Genitourinary: no symptoms reported Musculoskeletal: no symptoms reported Skin: No change in color (no erythema to skin around the drain site or lower abdomen) Psychiatric/Neurological: Anxiety Past Rxhrpev-Bltzlz-Zsyfqo Hx Past Med/Social Hx: Reviewed Nursing Past Med/Soc Hx Patient Social History Type Used: Cigarettes Former Smoker, Quit: Jun 15, 1996 2nd Hand Smoke Exposure: No Recent Foreign Travel: No Contact w/Someone Who Travel: No Recent Infectious Disease Expo: No Recent Hopitalizations: No Physical Abuse: No Sexual Abuse: No Mistreated: No Fear: No Immunizations Up To Date Tetanus Booster (TDap): Less than 5yrs PED Vaccines UTD: Yes Date of Pneumonia Vaccine: Apr 18, 2013 Date of Influenza Vaccine: Apr 18, 2018 Seasonal Allergies Seasonal Allergies: No Past Medical History Surgeries: Yes (HERNIA X3) Abdominal, Appendectomy, Gallbladder, Hysterectomy Respiratory: No Asthma Currently Using CPAP: No Currently Using BIPAP: No Cardiac: No Chronic Edema/Swelling Neurological: No 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 0oz. [id number]; 48.6 BMI Method:Stated General Appearance: WD/WN, Mild Distress, Obese HEENT: PERRL/EOMI, Pharynx Normal Neck: Full Range of Motion, Normal Inspection, Non Tender, Supple Respiratory: Chest Non Tender, Lungs Clear, Normal Breath Sounds Cardiovascular: Regular Rate, Rhythm, Normal Peripheral Pulses Gastrointestinal: Normal Bowel Sounds, No Pulsatile Mass, Soft, Tenderness (to lower abdomen where she has drain inserted) Neurologic/Psychiatric: Alert, Oriented x3 Skin: Normal Color, Warm/Dry; No Erythema Progress/Results/Core Measures Suspected Sepsis Recent Fever Within 48 Hours: No Infection Criteria Present: None New/Unexplained Altered Menta: No Sepsis Screen: No Definite Risk SIRS Temperature:97.6 Pulse: 73 Respiratory Rate: 20 Blood Pressure 156 /73 Mean: 100 Results/Orders My Orders Orders - LYLA LANGE MD Ondansetron Oral Dissolve Tab (Zofran (02/15/19 20:34) Fentanyl Injection (Sublimaze Injection (02/15/19 20:34) Ketorolac Injection (Toradol Injection) (02/15/19 20:34) Rx-Ondansetron Po (Rx-Zofran Po) (02/15/19 21:45) Rx-Hydrocodone/Apap 5-325 Mg (Rx-Vicodin (02/15/19 21:45) Medications Given in ED Current Medications Medications Dose Ordered Sig/Ashley Route Start Time Stop Time Status Last Admin Dose Admin Acetaminophen/ Hydrocodone Bitart 1 ea Q6H PRN PO 02/15/19 21:45 02/15/19 21:58 DC 02/15/19 21:45 1 EA Ondansetron HCl 4 mg Q6H PRN PO 02/15/19 21:45 02/15/19 21:58 DC 02/15/19 21:45 4 MG Vital Signs/I&O 02/15/19 02/15/19 20:00 21:46 Temp 97.6 97.0 Pulse 73 68 Resp 20 20 B/P (MAP) 156/73 (100) 139/83 (101) Pulse Ox 95 O2 Delivery Room Air Room Air Capillary Refill : Less Than 3 Seconds Blood Pressure Mean: 100 Progress Note #1: Progress Note the nurses instructed pt and friend about how to use the drain and how to flush it. when they inserted the plug and clicked the drain she started getting drainage from the wound. She then was asking for something for pain and nausea so given Zofran odt, Toradol and Fentanyl. Page placed to to try and contact Dr. Lion with IR about the pt request for pain medicine for home. Progress Note #2: Time: 21:[address] Melo, the design sales consultant radiologist for Dr. Lion, called back from and stated that the patient should be having improving pain as the drain is working now. He will have his staff or Dr. Lion's staff to call the patient to check on her in the morning. For tonight we will send her with a few nausea and pain pills. counseled to check with the clinic if she has not heard anything by mid to late morning. Departure Impression Primary Impression: Prieto perez drain site pain Additional Impression: Nausea Disposition: 01 HOME, SELF-CARE Condition: Stable Departure-Patient Inst. Decision time for Depature: 21:29 Referrals: SELF,MARITA IGNACIO (PCP/Family) Primary Care Physician Patient Instructions: Postoperative Pain (DC) Add. Discharge Instructions: Follow up with your doctor from about the drain and any continued pain or nausea. Try the medicine for tonight to help with your symptoms. They should get better overnight as the drain is working now. All discharge instructions reviewed with patient and/or family. Voiced understanding. LYLA LANGE MD Feb 15, 2019 20:24
[2019-02-15] MEDS ORDERED: fentaNYL INJECTION 100 MCG/2 ML AMP IVP STA (20:34)
[2019-02-15] MEDS ORDERED: KETOROLAC 60 MG/2 ML VIAL IM STA (20:34)
[2019-02-15] MEDS ORDERED: ONDANSETRON 4 MG (ZOFRAN) ORAL DISSOLVE TAB PO STA (20:34)
[2019-02-15] MEDS ORDERED: RX-ONDANSETRON 4 MG ODT (ZOFRAN) PPK #4 PO PRN (21:45)
[2019-02-15] MEDS ORDERED: RX-HYDROCODONE/APAP 5/325 MG #4 TAB PK PO PRN (21:45)
[2019-02-15 21:46] VITALS: BP 139/83
== END 2019-02-15 21:41 | disposition home or self-care (01) ==
LOC: EDUNIT# 19:44 → ER FS 19:45
DX: G89.18 Other acute postprocedural pain (principal); R10.30 Lower abdominal pain, unspecified; R11.0 Nausea; J45.909 Unspecified asthma, uncomplicated; K21.9 Gastro-esophageal reflux disease without esophagitis; E03.9 Hypothyroidism, unspecified; F32.9 Major depressive disorder, single episode, unspecified; Z88.2 Allergy status to sulfonamides; Z88.1 Allergy status to other antibiotic agents; Z88.8 Allergy status to other drugs, medicaments and biological substances; Z87.891 Personal history of nicotine dependence; Z90.49 Acquired absence of other specified parts of digestive tract; Z90.710 Acquired absence of both cervix and uterus
CPT/HCPCS: 96372; 96374; 99284

== ENCOUNTER 2019-03-06 13:28 | Emergency (ER) | payer MEDICAID ==
[~2019-03-06] VITALS: Ht 170 cm; Wt 140.0 kg
--- NOTE | 2019-03-06 14:01 | ED GI ---
General Chief Complaint: Catheter/Drain/Tube Problems Stated Complaint: DRAIN TUBE PROBLEMS Nursing Triage Note: Pt presents to ER with C/O J-tube issues. Pt states the tube got disconnected approx 2 hrs ago. Pt got drain inserted x 2 weeks and noticed change in color of fluid/odor x 2 days. Sepsis Screen: No Definite Risk Source of Information: Patient Exam Limitations: No Limitations History of Present Illness Date Seen by Provider: Mar 06, 2019 Time Seen by Provider: 13:36 Initial Comments Patient presents to ER by private conveyance with her significant other chief complaint that her J Vac has broken off and from the J-tube. The tube was placed into a seroma in her anterior abdominal wall that is been present for about 2 years. Tubes placed 2 weeks ago at [facility] and has been emptied daily putting out a thin, serous brown colored foul smelling fluid. Patient is not having any fevers recorded. Nursing reports aseptic vital signs. Patient is not diabetic nor on antibiotics. Allergies and Home Medications Allergies Coded Allergies: Sulfa (Sulfonamide Antibiotics) (Verified Allergy, Unknown, 06/27/18) hydroxyzine (Verified Allergy, Unknown, 06/27/18) prochlorperazine (Verified Allergy, Unknown, 12/20/16) tetracycline (Verified Allergy, Unknown, 06/27/18) Home Medications Cyclobenzaprine HCl 10 Mg Tablet, 10 MG PO BID PRN for PRN, (Reported) Dicyclomine HCl 10 Mg Capsule, 10 MG PO Q6H Prescribed by: VEGA BAUGH on 11/28/18 1711 Furosemide 40 Mg Tablet, 40 MG PO DAILY, (Reported) Gabapentin 300 Mg Capsule, 300 MG PO PRN, (Reported) Hydrocodone/Acetaminophen 1 Each Tablet, 1 TAB PO Q4-6HR Prescribed by: ELEN POLLACK on 11/23/18 0150 Hydrocodone/Acetaminophen 1 Each Tablet, 1-2 EACH PO Q6H PRN for PAIN-MODERATE Prescribed by: EVARISTO CORTES MD on 01/08/19 1444 Hydrocodone/Acetaminophen 1 Each Tablet, 1 TAB PO Q4H Prescribed by: YOLETTE THOMAS on 02/09/19 2301 Levothyroxine Sodium 50 Mcg Tablet, 50 MCG PO DAILY, (Reported) Meloxicam 15 Mg Tablet, 15 MG PO DAILY, (Reported) Ondansetron HCl 8 Mg Tablet, 8 MG PO Q6H PRN for NAUSEA/VOMITING-1ST LINE Prescribed by: LEONIDES ALFARO on 08/29/18 1605 Oxycodone HCl/Acetaminophen 1 Each Tablet, 1 TAB PO Q6H PRN for ABDOMINAL PAIN Prescribed by: LEONIDES ALFARO on 08/29/18 1605 Oxycodone HCl/Acetaminophen 1 Each Tablet, 1 TAB PO Q4H Prescribed by: VEGA BAUGH on 11/28/18 1711 Oxycodone HCl/Acetaminophen 1 Each Tablet, 1 EACH PO Q4H PRN for PAIN-SEVERE Prescribed by: LYLA LANGE on 12/04/18440 Promethazine HCl 25 Mg Tablet, 25 MG PO Q6H PRN for NAUSEA/VOMITING Prescribed by: LYLA LANGE on 12/04/18440 Sucralfate 1 Gm Tablet, 1 GM PO ACHS Prescribed by: LYLA LANGE on 12/04/18440 Venlafaxine HCl 75 Mg Tab, 75 MG PO BID, (Reported) Patient Home Medication List Home Medication List Reviewed: Yes Review of Systems Review of Systems Constitutional: No chills, No diaphoresis EENTM: No Blurred Vision, No Double Vision Respiratory: Denies Cough, Denies Orthopnea Cardiovascular: Denies Chest Pain, Denies Lightheadedness Gastrointestinal: Denies Constipated, Denies Diarrhea, Denies Nausea Genitourinary: Denies Burning, Denies Discharge Past Vllcnpc-Owrfva-Yngrby Hx Patient Social History Alcohol Use: Denies Use Recreational Drug Use: No Smoking Status: Former Smoker Type Used: Cigarettes Former Smoker, Quit: Jun 15, 1996 2nd Hand Smoke Exposure: No Recent Foreign Travel: No Contact w/Someone Who Travel: No Recent Infectious Disease Expo: No Recent Hopitalizations: Yes (J-tube 02/13) Physical Abuse: No Sexual Abuse: No Mistreated: No Fear: No Immunizations Up To Date Tetanus Booster (TDap): Less than 5yrs PED Vaccines UTD: Yes Date of Pneumonia Vaccine: Apr 18, 2013 Date of Influenza Vaccine: Apr 18, 2018 Seasonal Allergies Seasonal Allergies: No Past Medical History Surgeries: Yes (HERNIA X3) Abdominal, Appendectomy, Gallbladder, Hysterectomy Respiratory: No Asthma Currently Using CPAP: No Currently Using BIPAP: No Cardiac: No Chronic Edema/Swelling 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 0oz. 145.420898ze; 48.00 BMI Method:Stated General Appearance: no apparent distress, obese HEENT: PERRL/EOMI, pharynx normal Respiratory: no respiratory distress, no accessory muscle use Gastrointestinal: normal bowel sounds, non tender, soft, other (J-tube with nor mal with an ostomy without erythema L Dodd dolor. There is a scant amount of yellow white drainage) Neurologic/Psychiatric: alert, normal mood/affect Progress/Results/Core Measures Results/Orders My Orders Orders - ELEN POLLACK Ketorolac Injection (Toradol Injection) (03/06/19 14:15) Medications Given in ED Current Medications Medications Dose Ordered Sig/Ashley Route Start Time Stop Time Status Last Admin Dose Admin Ketorolac Tromethamine 60 mg ONCE ONCE IM 03/06/19 14:15 03/06/19 14:16 03/06/19 14:05 60 MG Vital Signs/I&O 03/06/19 13:36 Temp 36.9 Pulse 79 Resp 18 B/P (MAP) 117/106 Pulse Ox 98 O2 Delivery Room Air Blood Pressure Mean: 110 Progress Progress Note #1: Time: 13:52 Progress Note The input port on the J Vac sure it off. We will try and get her another replacement from surgery. Nursing staff has called housekeeper manager to facilitate this. The patient has aseptic vital signs no tenderness or significant wound drainage to make us think a infection has occurred. Progress Note #2: Time: 14:12 Progress Note Placed a Hemovac and it is drawing out thin serous fluid. Patient has an appointment on Wednesday, 2 days from now with the surgeon at [facility]. Toradol 60 mg IM for her discomfort in her abdominal wall. Departure Impression Primary Impression: ANNA drain, broken Qualified Codes: T85.698A - Other mechanical complication of other specified internal prosthetic devices, implants and grafts, initial encounter Additional Impression: Seroma Disposition: HOME, SELF-CARE Condition: Improved Departure-Patient Inst. Decision time for Depature: 14:13 Referrals: SELFMARITA MD (PCP/Family) Primary Care Physician Patient Instructions: Hemovac Drain Add. Discharge Instructions: Keep your follow-up appointment with the surgeon on Wednesday. Return to the ER to begin to have fever or intractable nausea and vomiting. All discharge instructions reviewed with patient and/or family. Voiced understanding. ELEN POLLACK Mar 06, 2019 14:01
[2019-03-06] MEDS ORDERED: KETOROLAC 30 MG/ML VIAL IM ONE (14:15)
[2019-03-06 14:27] VITALS: BP 115/95
== END 2019-03-06 14:27 | disposition home or self-care (01) ==
LOC: EDUNIT# 13:28 → ER 13:29
DX: K94.13 Enterostomy malfunction (principal); K91.873 Postprocedural seroma of a digestive system organ or structure following other procedure; J45.909 Unspecified asthma, uncomplicated; K21.9 Gastro-esophageal reflux disease without esophagitis; E03.9 Hypothyroidism, unspecified; F32.9 Major depressive disorder, single episode, unspecified; Z88.2 Allergy status to sulfonamides; Z88.1 Allergy status to other antibiotic agents; Z88.8 Allergy status to other drugs, medicaments and biological substances; Z87.891 Personal history of nicotine dependence; Z90.49 Acquired absence of other specified parts of digestive tract; Z90.710 Acquired absence of both cervix and uterus
CPT/HCPCS: 99284

== ENCOUNTER 2019-04-18 19:58 | Emergency (ER) | payer MEDICAID ==
[~2019-04-18] VITALS: Ht 170.1 cm; Wt 153.6 kg
[~2019-04-18 19:58] MED LIST changes: -DICL100G18 TP; -DICY20TA10 PO; -HYDR-4226 PO; -MORP15TA PO; -ONDA4TAB11 PO
[2019-04-18] MEDS ORDERED: morphine INJ 10 MG/ML 1ML (SYR OR VIAL) IVP STA (20:29)
[2019-04-18] MEDS ORDERED: NS IV 1000 ML 1,000 ML IV SCH (20:30)
[2019-04-18] MEDS ORDERED: ONDANSETRON 4 MG/2 ML (SDV) Z0FRAN IVP ONE (20:30)
[2019-04-18] MEDS ORDERED: IOHEXOL 350 MG/ML 100 ML (OMNIPAQUE 350) VIAL IV ONE (20:45)
[2019-04-18] MEDS ORDERED: HOLD METFORMIN - RECEIVED CONTRAST 20 ML VIAL IV SCH (20:45)
[2019-04-18] MEDS ORDERED: NS 100 ML (IVPB) BAG IV ONE (20:45)
--- NOTE | 2019-04-18 20:46 | ED Abdominal Pain ---
General Chief Complaint: Abdominal/GI Problems Stated Complaint: STOMACH PAIN Nursing Triage Note: PT. WAS SEEN BY THE DOCTOR TODAY AND HAD X-RAYS, BLOOD WORK AND WAS GIVEN ZOFRAN FOR NAUSEA. PT. REPORTED THE DOCTOR ORDERED AN ULTRASOUND BUT THE TECH WAS NOT HERE TODAY TO GET THIS DONE. PT. REPORTED SHE HAS HAD TWO NORMAL BOWEL MOVEMENTS TODAY. SHE ALSO C/O HAVING A HEADACHE THAT STARTED TODAY. Sepsis Screen: No Definite Risk History of Present Illness Date Seen by Provider: Apr 18, 2019 Time Seen by Provider: 20:25 Initial Comments The patient is a morbidly obese 48-year-old female who presents for 3 days of abdominal pain and abdominal distention. She states that she had a more normal bowel movement earlier today. She went to see her doctor today and had blood work and x-rays performed but did not receive the results of anything. She states that her doctor had discussed possibly doing an ultrasound of her abdomen however ultrasound was not available at the doctor's office and it is not available here today. The patient reports she was prescribed a nausea medication but was not prescribed anything for pain. She is alert and oriented 4, calm, and appears to be in no distress this time. She denies vomiting, back or flank pain, urinary complaints, chest pain or shortness of breath, fevers or chills, pelvic pain/bleeding/discharge, dizziness or syncope. Timing/Duration: 2-3 Days Severity/Quality: Moderate Location: Epigastric Radiation: No Radiation Activities at Onset: None Associated Symptoms: Nausea/Vomiting (nausea, no vomiting) Allergies and Home Medications Allergies Coded Allergies: Sulfa (Sulfonamide Antibiotics) (Verified Allergy, Unknown, 06/27/18) hydroxyzine (Verified Allergy, Unknown, 06/27/18) prochlorperazine (Verified Allergy, Unknown, 12/20/16) tetracycline (Verified Allergy, Unknown, 06/27/18) Home Medications Cyclobenzaprine HCl 10 Mg Tablet, 10 MG PO BID PRN for PRN, (Reported) Dicyclomine HCl 10 Mg Capsule, 10 MG PO Q6H Prescribed by: VEGA BAUGH on 11/28/18 1711 Furosemide 40 Mg Tablet, 40 MG PO DAILY, (Reported) Gabapentin 300 Mg Capsule, 300 MG PO PRN, (Reported) Hydrocodone/Acetaminophen 1 Each Tablet, 1 TAB PO Q4-6HR Prescribed by: ELEN POLLACK on 11/23/18 0150 Hydrocodone/Acetaminophen 1 Each Tablet, 1-2 EACH PO Q6H PRN for PAIN-MODERATE Prescribed by: EVARISTO CORTES MD on 01/08/19 1444 Hydrocodone/Acetaminophen 1 Each Tablet, 1 TAB PO Q4H Prescribed by: YOLETTE THOMAS on 02/09/19 2301 Levothyroxine Sodium 50 Mcg Tablet, 50 MCG PO DAILY, (Reported) Meloxicam 15 Mg Tablet, 15 MG PO DAILY, (Reported) Ondansetron HCl 8 Mg Tablet, 8 MG PO Q6H PRN for NAUSEA/VOMITING-1ST LINE Prescribed by: LEONIDES ALFARO on 08/29/18 1605 Oxycodone HCl/Acetaminophen 1 Each Tablet, 1 TAB PO Q6H PRN for ABDOMINAL PAIN Prescribed by: LEONIDES ALFARO on 08/29/18 1605 Oxycodone HCl/Acetaminophen 1 Each Tablet, 1 TAB PO Q4H Prescribed by: VEGA BAUGH on 11/28/18 1711 Oxycodone HCl/Acetaminophen 1 Each Tablet, 1 EACH PO Q4H PRN for PAIN-SEVERE Prescribed by: LYLA LANGE on 12/04/18 0441 Promethazine HCl 25 Mg Tablet, 25 MG PO Q6H PRN for NAUSEA/VOMITING Prescribed by: LYLA LANGE on 12/04/18 044 Sucralfate 1 Gm Tablet, 1 GM PO ACHS Prescribed by: LYLA LANGE on 12/04/18 044 Venlafaxine HCl 75 Mg Tab, 75 MG PO BID, (Reported) Patient Home Medication List Home Medication List Reviewed: Yes Review of Systems Review of Systems Constitutional: no symptoms reported EENTM: No Symptoms Reported Respiratory: No Symptoms Reported Cardiovascular: No Symptoms Reported Gastrointestinal: Abdomen Distended, Abdominal Pain, Nausea Genitourinary: No Symptoms Reported Musculoskeletal: no symptoms reported Skin: no symptoms reported Psychiatric/Neurological: No Symptoms Reported Endocrine: No Symptoms Reported Hematologic/Lymphatic: No Symptoms Reported All Other Systems Reviewed Negative Unless Noted: Yes Past Gbtbqpn-[id number]-Bkzolh Hx Past Med/Social Hx: Reviewed Nursing Past Med/Soc Hx Patient Social History Type Used: Cigarettes Former Smoker, Quit: Jun 15, 1996 2nd Hand Smoke Exposure: No Recent Foreign Travel: No Contact w/Someone Who Travel: No Recent Infectious Disease Expo: No Recent Hopitalizations: Yes (J-tube 02/13) Physical Abuse: No Sexual Abuse: No Mistreated: No Fear: No Immunizations Up To Date Tetanus Booster (TDap): Less than 5yrs PED Vaccines UTD: Yes Date of Pneumonia Vaccine: Apr 18, 2013 Date of Influenza Vaccine: Apr 18, 2018 Seasonal Allergies Seasonal Allergies: No Past Medical History Surgeries: Yes (HERNIA X3) Abdominal, Appendectomy, Gallbladder, Hysterectomy Respiratory: No Asthma Currently Using CPAP: No Currently Using BIPAP: No Cardiac: No Chronic Edema/Swelling 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 0oz. 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, alert, normal mood/affect, oriented x 3 Skin: normal color, warm/dry Progress/Results/Core Measures Results/Orders Lab Results Laboratory Tests Test 04/18/19 20:40 04/18/19 20:55 Range/Units White Blood Count 5.6 4.3-11.0 10^3/uL Red Blood Count 4.22 L 4.35-5.85 10^6/uL Hemoglobin 13.4 11.5-16.0 G/DL Hematocrit 39 35-52 % Mean Corpuscular Volume 92 80-99 FL Mean Corpuscular Hemoglobin 32 25-34 PG Mean Corpuscular Hemoglobin Concent 35 32-36 G/DL Red Cell Distribution Width 13.1 10.0-14.5 % Platelet Count 149 130-400 10^3/uL Mean Platelet Volume 10.9 H 7.4-10.4 FL Neutrophils (%) (Auto) 55 42-75 % Lymphocytes (%) (Auto) 36 12-44 % Monocytes (%) (Auto) 9 0-12 % Eosinophils (%) (Auto) 0 0-10 % Basophils (%) (Auto) 0 0-10 % Neutrophils # (Auto) 3.1 1.8-7.8 X 10^3 Lymphocytes # (Auto) 2.0 1.0-4.0 X 10^3 Monocytes # (Auto) 0.5 0.0-1.0 X 10^3 Eosinophils # (Auto) 0.0 0.0-0.3 10^3/uL Basophils # (Auto) 0.0 0.0-0.1 10^3/uL Sodium Level 141 135-145 MMOL/L Potassium Level 3.6 3.6-5.0 MMOL/L Chloride Level 102 98-107 MMOL/L Carbon Dioxide Level 29 21-32 MMOL/L Anion Gap 10 5-14 MMOL/L Blood Urea Nitrogen 12 7-18 MG/DL Creatinine 0.80 0.60-1.30 MG/DL Estimat Glomerular Filtration Rate > 60 BUN/Creatinine Ratio 15 Glucose Level 147 H 70-105 MG/DL Calcium Level 9.5 8.5-10.1 MG/DL Corrected Calcium 9.3 8.5-10.1 MG/DL Total Bilirubin 0.2 0.1-1.0 MG/DL Aspartate Amino Transf (AST/SGOT) 40 H 5-34 U/L Alanine Aminotransferase (ALT/SGPT) 51 0-55 U/L Alkaline Phosphatase 94 40-136 U/L Total Protein 7.0 6.4-8.2 GM/DL Albumin 4.2 3.2-4.5 GM/DL Lipase 45 8-78 U/L Urine Color DARK YELLOW Urine Clarity CLEAR Urine pH 6.5 5-9 Urine Specific [place] >=1.030 1.016-1.022 Urine Protein 2+ H NEGATIVE Urine Glucose (UA) NEGATIVE NEGATIVE Urine Ketones NEGATIVE NEGATIVE Urine Nitrite NEGATIVE NEGATIVE Urine Bilirubin NEGATIVE NEGATIVE Urine Urobilinogen 0.2 NORMAL MG/DL Urine Leukocyte Esterase NEGATIVE NEGATIVE Urine RBC (Auto) 3+ H NEGATIVE Urine RBC 50-100 H /HPF Urine WBC RARE /HPF Urine Squamous Epithelial Cells 5-10 /HPF Urine Crystals NONE /LPF Urine Bacteria NEGATIVE /HPF Urine Casts NONE /LPF Urine Mucus SMALL H /LPF Urine Culture Indicated NO My Orders Orders - YOLETTE THOMAS DO Cbc With Automated Diff (04/18/19 20:29) Comprehensive Metabolic Panel (04/18/19 20:29) Lipase (04/18/19 20:29) Urinalysis (04/18/19 20:29) Ct Abdomen/Pelvis W (04/18/19:29) Ns Iv 1000 Ml (Sodium Chloride 0.9%) (04/18/19 20:30) Morphine Injection (Morphine Injection (04/18/19 20:29) Ondansetron Injection (Zofran Injectio (04/18/19 20:30) Iohexol Injection (Omnipaque 350 Mg/Ml 1 (04/18/19 20:45) Received Contrast (Hold Metformin- Contr (04/18/19 20:45) Ns (Ivpb) (Sodium Chloride 0.9% Ivpb Bag (04/18/19 20:45) Medications Given in ED Current Medications Medications Dose Ordered Sig/Ashley Route Start Time Stop Time Status Last Admin Dose Admin Iohexol 100 ml ONCE ONCE IV 04/18/19 20:45 04/18/19 20:46 DC 04/18/19 20:50 100 ML Ondansetron HCl 4 mg ONCE ONCE IVP 04/18/19 20:30 04/18/19 20:34 DC 04/18/19 20:55 4 MG Sodium Chloride 100 ml ONCE ONCE IV 04/18/19 20:45 04/18/19 20:46 DC 04/18/19 20:50 100 ML Vital Signs/I&O 04/18/19 20:00 Temp 36.9 Pulse 81 Resp 22 B/P (MAP) 176/93 (120) O2 Delivery Room Air Blood Pressure Mean: 120 Progress Progress Note : Progress Note @2228 - patient updated on lab and imaging results. Workup today fails reveal any emergent pathology. The patient has an abdominal seroma which is decreasing in size. She will go home with pain medication. Advised close follow-up with her PCP in the next 2-3 days and return to the emergency department for new or worsening symptoms. She expresses verbal understanding and agreement with the plan and is stable for discharge. Diagnostic Imaging Comments [facility] [place], [place] NAME: ZELDA TORO [facility] REC#: [id number] PT STATUS: REG ER : 1970 PHYSICIAN: YOLETTE THOMAS DO ADMIT DATE: 04/18/19/ER FS Draft Date of Exam:04/18/19 CT ABDOMEN/PELVIS W Clinical Indication: The patient had x-rays today, is still having right-sided abdominal pain x3 days. Patient has history of cholecystectomy, appendectomy, hysterectomy, 2 hernia repairs and a J-tube. Exam: CT scan of the abdomen and pelvis performed with 100 mL of Omnipaque 350 IV contrast. Coronal and sagittal reformatted images were created. Auto Exposure Controls were utilized during the CT exam to meet ALARA standards for radiation dose reduction. Comparison: CT scan of abdomen and pelvis performed without contrast dated 11/23/2018. Findings: There is mild atelectasis involving both lung bases. There are small spurs involving the visualized lower thoracic spine and lumbar spine. There is diffuse low attenuation changes seen throughout the liver likely related to diffuse fatty infiltration. The liver is otherwise unremarkable. Gallbladder is surgically resected as noted on the prior study. The spleen, pancreas, adrenal glands, and both kidneys are unremarkable. There is no hydronephrosis, stones, or renal mass. The bladder is decompressed and not well evaluated. Appendectomy changes are seen. There is no intestinal obstruction. The stomach, small bowel, and colon show no significant abnormality. There is no intra-abdominal free air or free fluid. There is no significant abdominal lymphadenopathy. Again seen are postop changes to the ventral aspect of the abdomen in its mid and lower portion. There is a persistent fluid collection in the midline extra-abdominal low abdomen/pelvis region which has decreased in size in the interim. This fluid collection currently measures 3.5 cm x 4.9 cm x 6.4 cm (AP x Trans x CC) compared to the prior study measured at 4.6 cm x 6.5 cm x 8.2 cm (AP x Trans x CC). There is a thickened wall around it. There is stable fat stranding or scarring adjacent to the area. There is multiple surgical clips seen in the region. There is no other fluid collection seen. Impression: 1: There is a persistent fluid collection in the extra-abdominal midline lower abdominal/upper pelvis region in the postop hernia repair area. This fluid collection has decreased in size. This may represent a persistent seroma. There is no significant change in adjacent fat stranding or scarring and abscess is suspected to be less likely unless patient is having fevers and elevated white count. 2: Diffuse fatty infiltration of the liver. 3: The remainder of this exam has not significantly changed in the interim. Dictated on workstation # [id number] Dict: 04/18/192144 Trans: 04/18/192200 [facility] [id number] Interpreted by: JOSE D ROWLEY MD Electronically signed by: Departure Impression Primary Impression: Abdominal pain Additional Impression: Seroma, postoperative Disposition: 01 HOME, SELF-CARE Condition: Stable Departure-Patient Inst. Decision time for Depature: 22:29 Referrals: [facility] [place] (PCP) Primary Care Physician KITTY JAMA APRN (Family) Primary Care Physician Patient Instructions: Acute Abdomen (Belly Pain), Adult (DC) Add. Discharge Instructions: Follow-up with her doctor in the next 1-2 days. Take the prescribed medicine as directed. Return to the Emergency Department immediately for new or worsening symptoms. Scripts Dicyclomine HCl (Dicyclomine HCl) 20 Mg Tablet 20 MG PO Q6H for 5 Days, #15 TAB Prov: YOLETTE THOMAS DO 04/18/19 Hydrocodone/Acetaminophen ([place] 5-325 Tablet) 1 Each Tablet 1 TAB PO Q4-6HR for Pain MDD 10 TABS for 4 Days, #12 TAB Prov: YOLETTE THOMAS DO 04/18/19 YOLETTE THOMAS DO Apr 18, 2019 20:46
[2019-04-18 20:56] LABS: HEMATOCRIT 39 % (35-52); HEMOGLOBIN 13.4 G/DL (11.5-16.0); MEAN CORPUSCULAR HEMOGLOBIN 32 PG (25-34); MEAN CORPUSCULAR HGB CONC 35 G/DL (32-36); MEAN CORPUSCULAR VOLUME 92 FL (80-99); MEAN PLATELET VOLUME 10.9 FL (7.4-10.4); NEUTROPHILS % (AUTO) 55 % (42-75); PLATELET COUNT 149 10^3/uL (130-400); RED CELL DISTRIBUTION WIDTH 13.1 % (10.0-14.5); WHITE BLOOD COUNT 5.6 10^3/uL (4.3-11.0)
[2019-04-18 20:57] LABS: BASOPHILS % (AUTO) 0 % (0-10); EOSINOPHILS % (AUTO) 0 % (0-10); LYMPHOCYTES % (AUTO) 36 % (12-44); MONOCYTES # (AUTO) 0.5 X 10^3 (0.0-1.0); MONOCYTES % (AUTO) 9 % (0-12); NEUTROPHILS # (AUTO) 3.1 X 10^3 (1.8-7.8)
[2019-04-18 21:12] LABS: ALANINE AMINOTRANSFERASE 51 U/L (0-55); ALBUMIN 4.2 GM/DL (3.2-4.5); ALKALINE PHOSPHATASE 94 U/L (40-136); BILIRUBIN,TOTAL 0.2 MG/DL (0.1-1.0); BUN/CREATININE RATIO 15; CALCIUM 9.5 MG/DL (8.5-10.1); CARBON DIOXIDE 29 MMOL/L (21-32); CHLORIDE 102 MMOL/L (98-107); GFR ESTIMATED > 60; GLUCOSE 147 MG/DL (70-105); LIPASE 45 U/L (8-78); POTASSIUM 3.6 MMOL/L (3.6-5.0); SODIUM 141 MMOL/L (135-145)
--- NOTE | 2019-04-18 21:28 | NUR ---
PT. STATED SHE FEELS LIKE HER WHOLE ABD. IS ATTACHED TO THE MESH THAT SHE HAS.
--- NOTE | 2019-04-18 22:01 | Diagnostic Imaging Report ---
Clinical Indication: The patient had x-rays today, is still having right-sided abdominal pain x3 days. Patient has history of cholecystectomy, appendectomy, hysterectomy, 2 hernia repairs and a J-tube. Exam: CT scan of the abdomen and pelvis performed with 100 mL of Omnipaque 350 IV contrast. Coronal and sagittal reformatted images were created. Auto Exposure Controls were utilized during the CT exam to meet ALARA standards for radiation dose reduction. Comparison: CT scan of abdomen and pelvis performed without contrast dated 11/23/2018. Findings: There is mild atelectasis involving both lung bases. There are small spurs involving the visualized lower thoracic spine and lumbar spine. There is diffuse low attenuation changes seen throughout the liver likely related to diffuse fatty infiltration. The liver is otherwise unremarkable. Gallbladder is surgically resected as noted on the prior study. The spleen, pancreas, adrenal glands, and both kidneys are unremarkable. There is no hydronephrosis, stones, or renal mass. The bladder is decompressed and not well evaluated. Appendectomy changes are seen. There is no intestinal obstruction. The stomach, small bowel, and colon show no significant abnormality. There is no intra-abdominal free air or free fluid. There is no significant abdominal lymphadenopathy. Again seen are postop changes to the ventral aspect of the abdomen in its mid and lower portion. There is a persistent fluid collection in the midline extra-abdominal low abdomen/pelvis region which has decreased in size in the interim. This fluid collection currently measures 3.5 cm x 4.9 cm x 6.4 cm (AP x Trans x CC) compared to the prior study measured at 4.6 cm x 6.5 cm x 8.2 cm (AP x Trans x CC). There is a thickened wall around it. There is stable fat stranding or scarring adjacent to the area. There is multiple surgical clips seen in the region. There is no other fluid collection seen. Impression: 1: There is a persistent fluid collection in the extra-abdominal midline lower abdominal/upper pelvis region in the postop hernia repair area. This fluid collection has decreased in size. This may represent a persistent seroma. There is no significant change in adjacent fat stranding or scarring and abscess is suspected to be less likely unless patient is having fevers and elevated white count. 2: Diffuse fatty infiltration of the liver. 3: The remainder of this exam has not significantly changed in the interim. Dictated by: Dictated on workstation # [id number]
[2019-04-18 22:06] LABS: BACTERIA,URINE NEGATIVE /HPF; BILIRUBIN,URINE NEGATIVE (NEGATIVE); CLARITY,URINE CLEAR; COLOR,URINE DARK YELLOW; GLUCOSE, URINE (UA) NEGATIVE (NEGATIVE); KETONES,URINE NEGATIVE (NEGATIVE); LEUKOCYTE ESTERASE ,URINE NEGATIVE (NEGATIVE); NITRITE,URINE NEGATIVE (NEGATIVE); PH,URINE 6.5 (5-9); PROTEIN,URINE 2+ (NEGATIVE); RBC,URINE 50-100 /HPF; WBC,URINE RARE /HPF
[2019-04-18] MEDS ORDERED: DICY20TA10 PO (22:31)
[2019-04-18] MEDS ORDERED: HYDR-4226 PO (22:31)
[2019-04-18 22:44] VITALS: BP 154/84
== END 2019-04-18 22:44 | disposition home or self-care (01) ==
LOC: EDUNIT# 19:58 → ER FS 20:00
DX: L76.34 Postprocedural seroma of skin and subcutaneous tissue following other procedure (principal); J45.909 Unspecified asthma, uncomplicated; K21.9 Gastro-esophageal reflux disease without esophagitis; E03.9 Hypothyroidism, unspecified; F32.9 Major depressive disorder, single episode, unspecified; Z98.890 Other specified postprocedural states; Z90.710 Acquired absence of both cervix and uterus; Z88.2 Allergy status to sulfonamides; Z88.1 Allergy status to other antibiotic agents; Z88.8 Allergy status to other drugs, medicaments and biological substances; Z87.891 Personal history of nicotine dependence; Z90.49 Acquired absence of other specified parts of digestive tract
CPT/HCPCS: 36415; 74177; 80053; 81000; 83690; 85025

== ENCOUNTER → 2019-04-18 | Outpatient (CLI) | payer MEDICAID ==
[~2019-04-18] MED LIST changes: +DICL100G18 TP; +DICY20TA10 PO; +HYDR-4226 PO; +MORP15TA PO; +ONDA4TAB11 PO
--- NOTE | 2019-04-18 12:23 | Diagnostic Imaging Report ---
INDICATION: Upper abdominal pain. Time of exam 11:43 AM No definite free air is seen. There are surgical clips in the the gallbladder fossa. There appear to be postop changes to the anterior abdominal wall. No pathologic calcifications are seen. Bowel gas pattern appears nonobstructed. IMPRESSION: No acute feature detected. Dictated by: Dictated on workstation # [id number]
== END ==
LOC: RAD FS 11:38
PROVIDERS: ATTEND Nurse Practitioner Family
DX: R10.10 Upper abdominal pain, unspecified (principal)
CPT/HCPCS: 74019

== ENCOUNTER 2019-04-25 11:13 | Emergency (ER) | payer MEDICAID ==
[~2019-04-25] VITALS: Ht 172 cm; Wt 155.0 kg
[~2019-04-25 11:13] MED LIST changes: +DICY20TA10 PO; +HYDR-4226 PO
[2019-04-25] MEDS ORDERED: morphine INJ 10 MG/ML 1ML (SYR OR VIAL) IVP STA ×2 (11:32→13:03)
--- NOTE | 2019-04-25 11:32 | ED General ---
General Chief Complaint: Abdominal/GI Problems Stated Complaint: GENERAL PAIN; ABD PAIN; URINARY INCONTINENCE History of Present Illness Date Seen by Provider: Apr 25, 2019 Time Seen by Provider: 11:29 Initial Comments Patient presenting to emergency department for evaluation of multiple issues including diffuse joint pain weakness malaise fatigue abdominal pain dysuria. She admits that the above issues are all chronic including abdominal pain for which she was seen one week ago and had a CT scan done which showed improvement of her seroma. She says her abdominal pain is not her primary reason for presenting today it is her diffuse joint pain and she was having difficulty moving around last night because her joints hurt so much. 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 She says her home medications including gabapentin meloxicam Tylenol and Flexeril are not helping her symptoms. She says she is being referred to pain management but she still has not received approval from her insurance company. She admits that her primary reason for presenting today is more pain management than anything else. She is in no obvious distress with normal vital signs. Allergies and Home Medications Allergies Coded Allergies: Sulfa (Sulfonamide Antibiotics) (Verified Allergy, Unknown, 06/27/18) hydroxyzine (Verified Allergy, Unknown, 06/27/18) prochlorperazine (Verified Allergy, Unknown, 12/20/16) tetracycline (Verified Allergy, Unknown, 06/27/18) Home Medications Cyclobenzaprine HCl 10 Mg Tablet, 10 MG PO BID PRN for PRN, (Reported) Dicyclomine HCl 10 Mg Capsule, 10 MG PO Q6H Prescribed by: VEGA BAUGH on 11/28/18 1711 Dicyclomine HCl 20 Mg Tablet, 20 MG PO Q6H Prescribed by: YOLETTE THOMAS on 04/18/19 2231 Furosemide 40 Mg Tablet, 40 MG PO DAILY, (Reported) Gabapentin 300 Mg Capsule, 300 MG PO PRN, (Reported) Hydrocodone/Acetaminophen 1 Each Tablet, 1 TAB PO Q4-6HR Prescribed by: ELEN POLLACK on 11/23/18 0150 Hydrocodone/Acetaminophen 1 Each Tablet, 1-2 EACH PO Q6H PRN for PAIN-MODERATE Prescribed by: EVARISTO CORTES MD on 01/08/19 1444 Hydrocodone/Acetaminophen 1 Each Tablet, 1 TAB PO Q4H Prescribed by: YOLETTE THOMAS on 02/09/19 2301 Hydrocodone/Acetaminophen 1 Each Tablet, 1 TAB PO Q4-6HR Prescribed by: YOLETTE THOMAS on 04/18/19 2231 Levothyroxine Sodium 50 Mcg Tablet, 50 MCG PO DAILY, (Reported) Meloxicam 15 Mg Tablet, 15 MG PO DAILY, (Reported) Ondansetron HCl 8 Mg Tablet, 8 MG PO Q6H PRN for NAUSEA/VOMITING-1ST LINE Prescribed by: LEONIDES ALFARO on 08/29/18 1605 Oxycodone HCl/Acetaminophen 1 Each Tablet, 1 TAB PO Q6H PRN for ABDOMINAL PAIN Prescribed by: LEONIDES ALFARO on 08/29/18 1605 Oxycodone HCl/Acetaminophen 1 Each Tablet, 1 TAB PO Q4H Prescribed by: VEGA BAUGH on 11/28/18 1711 Oxycodone HCl/Acetaminophen 1 Each Tablet, 1 EACH PO Q4H PRN for PAIN-SEVERE Prescribed by: LYLA LANGE on 12/04/18 0441 Promethazine HCl 25 Mg Tablet, 25 MG PO Q6H PRN for NAUSEA/VOMITING Prescribed by: LYLA LANGE on 12/04/18 0441 Sucralfate 1 Gm Tablet, 1 GM PO ACHS Prescribed by: LYLA LANGE on 12/04/18 0441 Venlafaxine HCl 75 Mg Tab, 75 MG PO BID, (Reported) Patient Home Medication List Home Medication List Reviewed: Yes Review of Systems Review of Systems Constitutional: no symptoms reported EENTM: no symptoms reported Respiratory: no symptoms reported Cardiovascular: no symptoms reported Gastrointestinal: abdominal pain Genitourinary: dysuria Musculoskeletal: joint pain Skin: no symptoms reported Psychiatric/Neurological: No Symptoms Reported All Other Systems Reviewed Negative Unless Noted: Yes Past Lknvujx-Lpvfar-Tgfqhz Hx Patient Social History Type Used: Cigarettes Former Smoker, Quit: Jun 15, 1996 2nd Hand Smoke Exposure: No Recent Foreign Travel: No Recent Hopitalizations: Yes (J-tube 02/13) Immunizations Up To Date Tetanus Booster (TDap): Less than 5yrs PED Vaccines UTD: Yes Date of Pneumonia Vaccine: Apr 18, 2013 Date of Influenza Vaccine: Apr 18, 2018 Seasonal Allergies Seasonal Allergies: No Past Medical History Surgeries: Yes (HERNIA X3) Abdominal, Appendectomy, Gallbladder, Hysterectomy Respiratory: No Asthma Currently Using CPAP: No Currently Using BIPAP: No Cardiac: No Chronic Edema/Swelling Neurological: No 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 0oz. 145.972513ra; 53.00 BMI Method:Stated General Appearance: No Apparent Distress, Obese Eyes: Bilateral Eye Normal Inspection Neck: Supple Respiratory: Lungs Clear, No Respiratory Distress Cardiovascular: Regular Rate, Rhythm Gastrointestinal: Non Tender, Soft Back: Normal Inspection Extremity: Normal Capillary Refill, Normal Inspection, Normal Range of Motion, No Calf Tenderness, No Pedal Edema Neurologic/Psychiatric: Alert, Oriented x3, No Motor/Sensory Deficits Skin: Warm/Dry Progress/Results/Core Measures Suspected Sepsis SIRS Temperature: Pulse: Respiratory Rate: Laboratory Tests 04/25/19 11:55: White Blood Count 4.8 Blood Pressure / Mean: Laboratory Tests 04/25/19 11:55: Creatinine 0.79, Platelet Count 151, Total Bilirubin 0.3 Results/Orders Lab Results Laboratory Tests Test 04/25/19 11:31 04/25/19 11:55 Range/Units Urine Color YELLOW Urine Clarity CLEAR Urine pH 6.0 5-9 Urine Specific Mcallister 1.025 H 1.016-1.022 Urine Protein 2+ H NEGATIVE Urine Glucose (UA) NEGATIVE NEGATIVE Urine Ketones NEGATIVE NEGATIVE Urine Nitrite NEGATIVE NEGATIVE Urine Bilirubin NEGATIVE NEGATIVE Urine Urobilinogen 0.2 NORMAL MG/DL Urine Leukocyte Esterase NEGATIVE NEGATIVE Urine RBC (Auto) 3+ H NEGATIVE Urine RBC 10-25 H /HPF Urine WBC 0-2 /HPF Urine Squamous Epithelial Cells 2-5 /HPF Urine Crystals NONE /LPF Urine Bacteria TRACE /HPF Urine Casts NONE /LPF Urine Mucus NONE /LPF Urine Culture Indicated NO Urine Test NEGATIVE NEGATIVE White Blood Count 4.8 4.3-11.0 10^3/uL Red Blood Count 4.01 L 4.35-5.85 10^6/uL Hemoglobin 12.7 11.5-16.0 G/DL Hematocrit 37 35-52 % Mean Corpuscular Volume 92 80-99 FL Mean Corpuscular Hemoglobin 32 25-34 PG Mean Corpuscular Hemoglobin Concent 34 32-36 G/DL Red Cell Distribution Width 13.1 10.0-14.5 % Platelet Count 151 130-400 10^3/uL Mean Platelet Volume 10.7 H 7.4-10.4 FL Neutrophils (%) (Auto) 55 42-75 % Lymphocytes (%) (Auto) 34 12-44 % Monocytes (%) (Auto) 9 0-12 % Eosinophils (%) (Auto) 1 0-10 % Basophils (%) (Auto) 0 0-10 % Neutrophils # (Auto) 2.7 1.8-7.8 X 10^3 Lymphocytes # (Auto) 1.6 1.0-4.0 X 10^3 Monocytes # (Auto) 0.5 0.0-1.0 X 10^3 Eosinophils # (Auto) 0.0 0.0-0.3 10^3/uL Basophils # (Auto) 0.0 0.0-0.1 10^3/uL Sodium Level 139 135-145 MMOL/L Potassium Level 3.8 3.6-5.0 MMOL/L Chloride Level 100 98-107 MMOL/L Carbon Dioxide Level 27 21-32 MMOL/L Anion Gap 12 5-14 MMOL/L Blood Urea Nitrogen 11 7-18 MG/DL Creatinine 0.79 0.60-1.30 MG/DL Estimat Glomerular Filtration Rate > 60 BUN/Creatinine Ratio 14 Glucose Level 156 H 70-105 MG/DL Calcium Level 9.4 8.5-10.1 MG/DL Corrected Calcium 9.5 8.5-10.1 MG/DL Total Bilirubin 0.3 0.1-1.0 MG/DL Aspartate Amino Transf (AST/SGOT) 32 5-34 U/L Alanine Aminotransferase (ALT/SGPT) 44 0-55 U/L Alkaline Phosphatase 81 40-136 U/L Total Protein 6.5 6.4-8.2 GM/DL Albumin 3.9 3.2-4.5 GM/DL Lipase 38 8-78 U/L My Orders Orders - CONRADO ESPINO DO Cbc With Automated Diff (04/25/19 11:32) Comprehensive Metabolic Panel (04/25/19 11:32) Ua Culture If Indicated (04/25/19 11:32) Lipase (04/25/19 11:32) Hcg,Qualitative Urine (04/25/19 11:32) Ondansetron Injection (Zofran Injectio (04/25/19 11:45) Morphine Injection (Morphine Injection (04/25/19 11:32) Morphine Injection (Morphine Injection (04/25/19 13:03) Ketorolac Injection (Toradol Injection) (04/25/19 13:15) Medications Given in ED Current Medications Medications Dose Ordered Sig/Ashley Route Start Time Stop Time Status Last Admin Dose Admin Ondansetron HCl 4 mg ONCE ONCE IVP 04/25/19 11:45 04/25/19 11:46 DC 04/25/19 12:17 4 MG Vital Signs/I&O 04/25/19 11:22 Temp 36.5 Pulse 78 Resp 18 B/P (MAP) 186/78 (114) Pulse Ox 95 Capillary Refill : Progress Note : Progress Note Patient with normal labs I see no reason for repeat CT imaging of abdomen and pelvis. Diffuse joint pain is undifferentiated however there is no specific joint that is more painful than another and it does not appear that there is any signs of septic arthritis. Patient's pain improved and she wants complete resolution of her pain by told that that is not reasonable given her chronic pain issues. I told her I can write her for a short course of morphine and she needs a follow with her primary care provider and/or pain management and she can come back to the ED with any signs of worsening pain swelling fevers or other general concerns. Patient aware and agreeable with plan for discharge and verbalized understanding of the need for follow-up and strict ED return precautions discussed as above. Departure Impression Primary Impression: Arthralgia Additional Impression: Abdominal pain Disposition: 01 HOME, SELF-CARE Condition: Stable Departure-Patient Inst. Referrals: KITTY JAMA APRN (PCP) Primary Care Physician ABRAHAM BARFIELD MD (Family) Primary Care Physician Patient Instructions: Joint Pain Scripts Ondansetron (Ondansetron Odt) 4 Mg Tab.rapdis 4 MG PO TID PRN for NAUSEA/VOMITING-1ST LINE, #10 TAB Prov: CONRADO ESPINO DO 04/25/19 Morphine Sulfate (Morphine Sulfate) 15 Mg Tablet 15 MG PO TID PRN for PAIN-SEVERE for 7 Days, #9 TAB Prov: CONRADO ESPINO DO 04/25/19 CONRADO ESPINO DO Apr 25, 2019 11:32 POS
[2019-04-25] MEDS ORDERED: ONDANSETRON 4 MG/2 ML (SDV) Z0FRAN IVP ONE (11:45)
[2019-04-25 11:46] LABS: BACTERIA,URINE TRACE /HPF; BILIRUBIN,URINE NEGATIVE (NEGATIVE); CLARITY,URINE CLEAR; COLOR,URINE YELLOW; GLUCOSE, URINE (UA) NEGATIVE (NEGATIVE); KETONES,URINE NEGATIVE (NEGATIVE); LEUKOCYTE ESTERASE ,URINE NEGATIVE (NEGATIVE); NITRITE,URINE NEGATIVE (NEGATIVE); PROTEIN,URINE 2+ (NEGATIVE); WBC,URINE 0-2 /HPF
[2019-04-25 12:19] LABS: HEMATOCRIT 37 % (35-52); HEMOGLOBIN 12.7 G/DL (11.5-16.0); LYMPHOCYTES % (AUTO) 34 % (12-44); MEAN CORPUSCULAR HEMOGLOBIN 32 PG (25-34); MEAN CORPUSCULAR HGB CONC 34 G/DL (32-36); MEAN CORPUSCULAR VOLUME 92 FL (80-99); MEAN PLATELET VOLUME 10.7 FL (7.4-10.4); NEUTROPHILS % (AUTO) 55 % (42-75); PLATELET COUNT 151 10^3/uL (130-400); RED CELL DISTRIBUTION WIDTH 13.1 % (10.0-14.5); WHITE BLOOD COUNT 4.8 10^3/uL (4.3-11.0)
[2019-04-25 12:20] LABS: BASOPHILS % (AUTO) 0 % (0-10); EOSINOPHILS % (AUTO) 1 % (0-10); LYMPHOCYTES # (AUTO) 1.6 X 10^3 (1.0-4.0); MONOCYTES # (AUTO) 0.5 X 10^3 (0.0-1.0); MONOCYTES % (AUTO) 9 % (0-12); NEUTROPHILS # (AUTO) 2.7 X 10^3 (1.8-7.8)
[2019-04-25 12:47] LABS: SODIUM 139 MMOL/L (135-145)
[2019-04-25 12:48] LABS: ALANINE AMINOTRANSFERASE 44 U/L (0-55); ALBUMIN 3.9 GM/DL (3.2-4.5); ALKALINE PHOSPHATASE 81 U/L (40-136); BILIRUBIN,TOTAL 0.3 MG/DL (0.1-1.0); BUN/CREATININE RATIO 14; CALCIUM 9.4 MG/DL (8.5-10.1); CARBON DIOXIDE 27 MMOL/L (21-32); CHLORIDE 100 MMOL/L (98-107); CREATININE SERUM 0.79 MG/DL (0.60-1.30); GFR ESTIMATED > 60; GLUCOSE 156 MG/DL (70-105); POTASSIUM 3.8 MMOL/L (3.6-5.0); TOTAL PROTEIN 6.5 GM/DL (6.4-8.2)
[2019-04-25 12:49] LABS: LIPASE 38 U/L (8-78)
[2019-04-25] MEDS ORDERED: MORP15TA PO (13:06)
[2019-04-25] MEDS ORDERED: ONDA4TAB11 PO (13:06)
[2019-04-25] MEDS ORDERED: KETOROLAC 15 MG/ML VIAL IVP ONE (13:15)
[2019-04-25] MEDS ORDERED: DICL100G18 TP (13:25)
[2019-04-25 13:37] VITALS: BP 160/75
== END 2019-04-25 13:39 | disposition home or self-care (01) ==
LOC: EDUNIT# 11:13 → ER FS 11:15
DX: M25.50 Pain in unspecified joint (principal); R10.9 Unspecified abdominal pain; J45.909 Unspecified asthma, uncomplicated; K21.9 Gastro-esophageal reflux disease without esophagitis; E03.9 Hypothyroidism, unspecified; F32.9 Major depressive disorder, single episode, unspecified; Z90.49 Acquired absence of other specified parts of digestive tract; Z90.710 Acquired absence of both cervix and uterus; Z88.2 Allergy status to sulfonamides; Z88.1 Allergy status to other antibiotic agents; Z88.8 Allergy status to other drugs, medicaments and biological substances; Z87.891 Personal history of nicotine dependence
CPT/HCPCS: 36415; 80053; 81000; 83690; 84703; 85025; 96374; 96375; 96376

== ENCOUNTER 2019-05-13 11:50 | Emergency (ER) | payer MEDICAID ==
[~2019-05-13] VITALS: Ht 170 cm; Wt 155.0 kg
[~2019-05-13 11:50] MED LIST changes: +DICL100G18 TP; +MORP15TA PO; +ONDA4TAB11 PO
[2019-05-13] MEDS ORDERED: ASPIRIN 81 MG CHEW (CHILDREN'S ASA) PO ONE (12:30)
[2019-05-13] MEDS ORDERED: NS IV 1000 ML 1,000 ML IV SCH (12:31)
[2019-05-13] MEDS ORDERED: diphenhydrAMINE 50 MG/ML INJ (BENADRYL) IVP ONE (12:45)
[2019-05-13] MEDS ORDERED: METOCLOPRAMIDE INJ 10 MG/2 ML (REGLAN) IVP ONE (12:45)
[2019-05-13] MEDS ORDERED: KETOROLAC 30 MG/ML VIAL IVP ONE (12:45)
[2019-05-13] MEDS ORDERED: ACETAMINOPHEN 325 MG TABLET PO ONE (12:45)
[2019-05-13 12:57] LABS: BASOPHILS % (AUTO) 0 % (0-10); EOSINOPHILS % (AUTO) 0 % (0-10); HEMATOCRIT 38 % (35-52); HEMOGLOBIN 12.4 G/DL (11.5-16.0); LYMPHOCYTES # (AUTO) 1.6 X 10^3 (1.0-4.0); LYMPHOCYTES % (AUTO) 34 % (12-44); MEAN CORPUSCULAR HEMOGLOBIN 31 PG (25-34); MEAN CORPUSCULAR HGB CONC 33 G/DL (32-36); MEAN CORPUSCULAR VOLUME 95 FL (80-99); MONOCYTES # (AUTO) 0.4 X 10^3 (0.0-1.0); MONOCYTES % (AUTO) 9 % (0-12); NEUTROPHILS # (AUTO) 2.6 X 10^3 (1.8-7.8); NEUTROPHILS % (AUTO) 57 % (42-75); PLATELET COUNT 121 10^3/uL (130-400); RED CELL DISTRIBUTION WIDTH 13.2 % (10.0-14.5); WHITE BLOOD COUNT 4.6 10^3/uL (4.3-11.0)
[2019-05-13 12:58] LABS: INR 0.9 (0.8-1.4); PROTHROMBIN TIME PATIENT 12.7 SEC (12.2-14.7)
[2019-05-13 13:09] LABS: CLARITY,URINE CLEAR; COLOR,URINE YELLOW; GLUCOSE, URINE (UA) NEGATIVE (NEGATIVE); KETONES,URINE NEGATIVE (NEGATIVE); PROTEIN,URINE TRACE (NEGATIVE)
[2019-05-13 13:10] LABS: BACTERIA,URINE MODERATE /HPF; BILIRUBIN,URINE NEGATIVE (NEGATIVE); LEUKOCYTE ESTERASE ,URINE NEGATIVE (NEGATIVE); NITRITE,URINE NEGATIVE (NEGATIVE); WBC,URINE 0-2 /HPF
[2019-05-13 13:11] LABS: ALKALINE PHOSPHATASE 85 U/L (40-136); BILIRUBIN,TOTAL 0.4 MG/DL (0.1-1.0); BUN/CREATININE RATIO 12; CALCIUM 9.1 MG/DL (8.5-10.1); CARBON DIOXIDE 30 MMOL/L (21-32); CHLORIDE 103 MMOL/L (98-107); CREATININE SERUM 0.93 MG/DL (0.60-1.30); GFR ESTIMATED > 60; GLUCOSE 182 MG/DL (70-105); POTASSIUM 3.8 MMOL/L (3.6-5.0); SODIUM 143 MMOL/L (135-145)
[2019-05-13 13:12] LABS: ALANINE AMINOTRANSFERASE 45 U/L (0-55); ALBUMIN 3.7 GM/DL (3.2-4.5); TOTAL PROTEIN 6.3 GM/DL (6.4-8.2)
--- NOTE | 2019-05-13 13:25 | Diagnostic Imaging Report ---
PROCEDURE: CT head without contrast. TECHNIQUE: Multiple contiguous axial images were obtained through the brain without the use of intravenous contrast. Auto Exposure Controls were utilized during the CT exam to meet ALARA standards for radiation dose reduction. INDICATION: Headache for two weeks. COMPARISON: No prior studies are available for comparison. FINDINGS: The ventricles and sulci are within normal limits. No sulcal effacement, midline shift, or hemorrhage is detected. Cisterns are patent. Visualized paranasal sinuses demonstrate a mucus retention cyst or polyp in the left maxillary sinus. IMPRESSION: No acute intracranial process is detected. Dictated by: Dictated on workstation # [id number]
--- NOTE | 2019-05-13 13:28 | Diagnostic Imaging Report ---
PATIENT HISTORY: Chest pain. TECHNIQUE: Frontal view of the chest. COMPARISON: 01/08/2019. FINDINGS: There is mild cardiomegaly and mild central vascular congestion. No focal consolidation is seen. There is no pleural effusion or pneumothorax. IMPRESSION: Mild cardiomegaly and mild central vascular congestion. Dictated by: Dictated on workstation # [id number]
--- NOTE | 2019-05-13 14:30 | ED Chest Pain ---
General Chief Complaint: Chest Pain Stated Complaint: CHEST PAIN History of Present Illness Date Seen by Provider: May 13, 2019 Time Seen by Provider: 11:50 Initial Comments The patient is a 48-year-old female history of morbid obesity, chronic pain and what she reports is a recent diagnosis of Michel's thyroiditis. She had a clean cardiac catheterization completed in June at [place] per review of records and ejection fraction was also noted to be normal at that time. The patient presents with 3 days of mild gradual onset bilateral frontal and superior headache in association with nausea and with what the patient describes as central sternal chest tightness with onset this morning upon awakening from sleep. Associated mild photophobia and phonophobia. Associated mild generalized fatigue and malaise. No associated fevers, vomiting, focal weakness, numbness, tingling, neck stiffness, vision changes, shortness of breath, flank pain, back pain, dysuria or hematuria, changes in bowel habits. Patient is resting comfortably in no significant distress and vital signs are appropriate upon initial evaluation in the emergency department. She describes her headache as not the worst of her life and records do show that she has previously been treated for headaches here in this emergency department. Allergies and Home Medications Allergies Coded Allergies: Sulfa (Sulfonamide Antibiotics) (Verified Allergy, Unknown, 06/27/18) hydroxyzine (Verified Allergy, Unknown, 06/27/18) prochlorperazine (Verified Allergy, Unknown, 12/20/16) tetracycline (Verified Allergy, Unknown, 06/27/18) Home Medications Cyclobenzaprine HCl 10 Mg Tablet, 10 MG PO BID PRN for PRN, (Reported) Diclofenac Sodium 100 Gm Gel..gram., 4 GM TP QID Prescribed by: CONRADO ESPINO on 04/25/19 1325 Dicyclomine HCl 10 Mg Capsule, 10 MG PO Q6H Prescribed by: VEGA BAUGH on 11/28/18 1711 Dicyclomine HCl 20 Mg Tablet, 20 MG PO Q6H Prescribed by: YOLETTE THOMAS on 04/18/19 2231 Furosemide 40 Mg Tablet, 40 MG PO DAILY, (Reported) Gabapentin 300 Mg Capsule, 300 MG PO PRN, (Reported) Hydrocodone/Acetaminophen 1 Each Tablet, 1 TAB PO Q4-6HR Prescribed by: ELEN POLLACK on 11/23/18 0150 Hydrocodone/Acetaminophen 1 Each Tablet, 1-2 EACH PO Q6H PRN for PAIN-MODERATE Prescribed by: EVARISTO CORTES MD on 01/08/19 1444 Hydrocodone/Acetaminophen 1 Each Tablet, 1 TAB PO Q4H Prescribed by: YOLETTE THOMAS on 02/09/19 2301 Hydrocodone/Acetaminophen 1 Each Tablet, 1 TAB PO Q4-6HR Prescribed by: YOLETTE THOMAS on 04/18/19 2231 Levothyroxine Sodium 50 Mcg Tablet, 50 MCG PO DAILY, (Reported) Meloxicam 15 Mg Tablet, 15 MG PO DAILY, (Reported) Morphine Sulfate 15 Mg Tablet, 15 MG PO TID PRN for PAIN-SEVERE Prescribed by: CONRADO ESPINO on 04/25/19 1306 Ondansetron 4 Mg Tab.rapdis, 4 MG PO TID PRN for NAUSEA/VOMITING-1ST LINE Prescribed by: CONRADO ESPINO on 04/25/19 1306 Ondansetron HCl 8 Mg Tablet, 8 MG PO Q6H PRN for NAUSEA/VOMITING-1ST LINE Prescribed by: LEONIDES ALFARO on 08/29/18 1605 Oxycodone HCl/Acetaminophen 1 Each Tablet, 1 TAB PO Q6H PRN for ABDOMINAL PAIN Prescribed by: LEONIDES ALFARO on 08/29/18 1605 Oxycodone HCl/Acetaminophen 1 Each Tablet, 1 TAB PO Q4H Prescribed by: VEGA BAUGH on 11/28/18 1711 Oxycodone HCl/Acetaminophen 1 Each Tablet, 1 EACH PO Q4H PRN for PAIN-SEVERE Prescribed by: LYLA MARTINEZRT on 12/04/18 0441 Promethazine HCl 25 Mg Tablet, 25 MG PO Q6H PRN for NAUSEA/VOMITING Prescribed by: LYLA GRAHAMYART on 12/04/18 0441 Sucralfate 1 Gm Tablet, 1 GM PO ACHS Prescribed by: LYLA MARTINEZRT on 12/04/18 044 Venlafaxine HCl 75 Mg Tab, 75 MG PO BID, (Reported) Patient Home Medication List Home Medication List Reviewed: Yes Review of Systems Review of Systems Constitutional: see HPI All Other Systems Reviewed Negative Unless Noted: Yes (Negative excepted noted.) Past Sawwoll-Hmwzpc-Kcnnat Hx Past Med/Social Hx: Reviewed Nursing Past Med/Soc Hx Patient Social History Type Used: Cigarettes Former Smoker, Quit: Jun 15, 1996 2nd Hand Smoke Exposure: No Recent Hopitalizations: Yes (J-tube 02/13) Immunizations Up To Date Tetanus Booster (TDap): Less than 5yrs PED Vaccines UTD: Yes Date of Pneumonia Vaccine: Apr 18, 2013 Date of Influenza Vaccine: Apr 18, 2018 Seasonal Allergies Seasonal Allergies: No Past Medical History Surgeries: Yes (HERNIA X3) Abdominal, Appendectomy, Gallbladder, Hysterectomy Respiratory: No Asthma Currently Using CPAP: No Currently Using BIPAP: No Cardiac: No Chronic Edema/Swelling Neurological: No SVP OF DIGITAL History: Hysterectomy Genitourinary: No Gastrointestinal: Yes Abdominal Hernia, Gastroesophageal Reflux, Gall Bladder Disease Musculoskeletal: Yes (scoliosis, knee pain back pain) Chronic Back Pain Endocrine: Yes Hypothyroidsim HEENT: No Cancer: No Psychosocial: Yes Depression Integumentary: No Blood Disorders: No Adverse Reaction/Blood Tranf: No Family Medical History Reviewed Nursing Family Hx Physical Exam Vital Signs Capillary Refill : Height, Weight, BMI Height: 5'7.00" Weight: 320lbs. 0oz. 145.716227wr; 52.00 BMI Method:Stated General Appearance: No Apparent Distress Other comments This is a morbidly obese older female appearing nontoxic and in no acute distress. Head is normocephalic and atraumatic. Neck is supple and nontender and without meningismus/stiffness/pain with ranging and patient is able to range her neck fully in all dimensions without significant discomfort. Oropharynx is moist. Lungs are clear to auscultation at all stations. There is a normal S1 and S2 without rubs or gallops and capillary refill is appropriate, less than 2 seconds globally. Abdomen is soft and morbidly obese/protuberant with well-healed surgical scars noted. Skin is warm and dry without cyanosis, clubbing or edema. Psychiatrically, the patient illustrates appropriate mood and affect and is alert. Neurologically, cranial nerves II through XII are intact and there are no lateralizing deficits noted. Speech is normal. Language is normal. Coordination is normal. There is no dysmetria with qyuxnd-fa-vjxz or noln-pm-fuus bilaterally. Strength is 5 out of 5 in all joints of bilateral upper and lower extremity. Sensation is intact light touch in bilateral upper and lower extremity. The patient relates with a narrow, steady gait in the emergency department. She is alert and oriented 4. Progress/Results/Core Measures Results/Orders Lab Results Laboratory Tests Test 05/13/19 12:15 05/13/19 12:55 Range/Units White Blood Count 4.6 4.3-11.0 10^3/uL Red Blood Count 4.03 L 4.35-5.85 10^6/uL Hemoglobin 12.4 11.5-16.0 G/DL Hematocrit 38 35-52 % Mean Corpuscular Volume 95 80-99 FL Mean Corpuscular Hemoglobin 31 25-34 PG Mean Corpuscular Hemoglobin Concent 33 32-36 G/DL Red Cell Distribution Width 13.2 10.0-14.5 % Platelet Count 121 L 130-400 10^3/uL Mean Platelet Volume 11.0 H 7.4-10.4 FL Neutrophils (%) (Auto) 57 42-75 % Lymphocytes (%) (Auto) 34 12-44 % Monocytes (%) (Auto) 9 0-12 % Eosinophils (%) (Auto) 0 0-10 % Basophils (%) (Auto) 0 0-10 % Neutrophils # (Auto) 2.6 1.8-7.8 X 10^3 Lymphocytes # (Auto) 1.6 1.0-4.0 X 10^3 Monocytes # (Auto) 0.4 0.0-1.0 X 10^3 Eosinophils # (Auto) 0.0 0.0-0.3 10^3/uL Basophils # (Auto) 0.0 0.0-0.1 10^3/uL Prothrombin Time 12.7 12.2-14.7 SEC INR Comment 0.9 0.8-1.4 Activated Partial Thromboplast Time 26 24-35 SEC Sodium Level 143 135-145 MMOL/L Potassium Level 3.8 3.6-5.0 MMOL/L Chloride Level 103 98-107 MMOL/L Carbon Dioxide Level 30 21-32 MMOL/L Anion Gap 10 5-14 MMOL/L Blood Urea Nitrogen 11 7-18 MG/DL Creatinine 0.93 0.60-1.30 MG/DL Estimat Glomerular Filtration Rate > 60 BUN/Creatinine Ratio 12 Glucose Level 182 H 70-105 MG/DL Calcium Level 9.1 8.5-10.1 MG/DL Corrected Calcium 9.3 8.5-10.1 MG/DL Total Bilirubin 0.4 0.1-1.0 MG/DL Aspartate Amino Transf (AST/SGOT) 36 H 5-34 U/L Alanine Aminotransferase (ALT/SGPT) 45 0-55 U/L Alkaline Phosphatase 85 40-136 U/L Troponin I < 0.30 <0.30 NG/ML Pro-B-Type Natriuretic Peptide 40.6 <75.0 PG/ML Total Protein 6.3 L 6.4-8.2 GM/DL Albumin 3.7 3.2-4.5 GM/DL Urine Color YELLOW Urine Clarity CLEAR Urine pH 6.0 5-9 Urine Specific [place] 1.025 H 1.016-1.022 Urine Protein TRACE H NEGATIVE Urine Glucose (UA) NEGATIVE NEGATIVE Urine Ketones NEGATIVE NEGATIVE Urine Nitrite NEGATIVE NEGATIVE Urine Bilirubin NEGATIVE NEGATIVE Urine Urobilinogen 0.2 < = 1.0 MG/DL Urine Leukocyte Esterase NEGATIVE NEGATIVE Urine RBC (Auto) 2+ H NEGATIVE Urine RBC 10-25 H /HPF Urine WBC 0-2 /HPF Urine Squamous Epithelial Cells 10-25 H /HPF Urine Crystals NONE /LPF Urine Bacteria MODERATE H /HPF Urine Casts NONE /LPF Urine Mucus SMALL H /LPF Urine Culture Indicated NO My Orders Orders - VEGA BAUGH MD Cbc With Automated Diff (05/13/19 12:19) Comprehensive Metabolic Panel (05/13/19 12:19) Troponin I Fs (05/13/19 12:19) Ekg Tracing (05/13/19 12:19) Chest 1 View Ap/Pa Only (05/13/19 12:19) Protime With Inr (05/13/19 12:19) Partial Thromboplastin Time (05/13/19 12:19) Probnp Fs (05/13/19 12:19) Aspirin Chewable Tablet (Baby Aspirin Ch (05/13/19 12:30) Ua Culture If Indicated (05/13/19 12:31) Ct Head Wo (05/13/19 12:31) Ed Iv/Invasive Line Start (05/13/19 12:31) Ns Iv 1000 Ml (Sodium Chloride 0.9%) (05/13/19 12:31) Acetaminophen Tablet/Caplet (Tylenol T (05/13/19 12:45) Metoclopramide Injection (Reglan Injecti (05/13/19 12:45) Diphenhydramine Injection (Benadryl Inje (05/13/19 12:45) Ketorolac Injection (Toradol Injection) (05/13/19 12:45) Medications Given in ED Current Medications Medications Dose Ordered Sig/Ashley Route Start Time Stop Time Status Last Admin Dose Admin Acetaminophen 975 mg ONCE ONCE PO 05/13/19 12:45 05/13/19 12:46 DC 05/13/19 12:51 975 MG Aspirin 324 mg ONCE ONCE PO 05/13/19 12:30 05/13/19 12:31 DC 05/13/19 12:51 324 MG Diphenhydramine HCl 50 mg ONCE ONCE IVP 05/13/19 12:45 05/13/19 12:46 DC 05/13/19 12:52 50 MG Ketorolac Tromethamine 30 mg ONCE ONCE IVP 05/13/19 12:45 05/13/19 12:46 DC 05/13/19 12:51 30 MG Metoclopramide HCl 10 mg ONCE ONCE IVP 05/13/19 12:45 05/13/19 12:46 DC 05/13/19 12:53 10 MG Progress Progress Note : Time: 14:30 Progress Note Clinical examination reassuring and neurologic examination nonfocal. No red flags for headache today aside from age and overall debility. HEART score low risk and patient is Wells low risk for PE and PERCs out. Plan for labs, IV fluids, chest x-ray/EKG, head CT, medications for headache and nausea and then reevaluation. If workup is reassuring and the patient feels better, plan for likely discharge home to follow up very closely with primary care in the next 1- 2 days. Patient understands and agrees. Update 1430: Patient is resting comfortably in no acute distress upon reassessment. States her headache feels better. Overall feels improved. Workup unremarkable and reassuring. We will proceed with discharge home at this time as per plan above. Patient is encouraged to follow up with primary care on Wednesday and return to the emergency department right away if symptoms worsen or if other new symptoms of concern develop. All questions are answered. EKG : Comment Sinus rhythm, no acute ST elevation or depression, rate 74, QRS 84, QTc 453, EP interpretation. Machine read does suggest junctional rhythm however rate is wrong for that and I do see P waves although they are subtle in the setting of what I feel is probably decreased voltage throughout due to the patient's body habitus. Diagnostic Imaging Diagonstic Imaging: CT Comments PATIENT HISTORY: Chest pain. TECHNIQUE: Frontal view of the chest. COMPARISON: 01/08/2019. FINDINGS: There is mild cardiomegaly and mild central vascular congestion. No focal consolidation is seen. There is no pleural effusion or pneumothorax. IMPRESSION: Mild cardiomegaly and mild central vascular congestion. PROCEDURE: CT head without contrast. TECHNIQUE: Multiple contiguous axial images were obtained through the brain without the use of intravenous contrast. Auto Exposure Controls were utilized during the CT exam to meet ALARA standards for radiation dose reduction. INDICATION: Headache for two weeks. COMPARISON: No prior studies are available for comparison. FINDINGS: The ventricles and sulci are within normal limits. No sulcal effacement, midline shift, or hemorrhage is detected. Cisterns are patent. Visualized paranasal sinuses demonstrate a mucus retention cyst or polyp in the left maxillary sinus. IMPRESSION: No acute intracranial process is detected. Departure Impression Primary Impression: Headache Qualified Codes: G44.89 - Other headache syndrome Additional Impressions: Fatigue Qualified Codes: R53.83 - Other fatigue Other chest pain Disposition: HOME, SELF-CARE Condition: Improved Departure-Patient Inst. Referrals: KITTY JAMA APRN (PCP) Primary Care Physician ABRAHAM BARFIELD MD (Family) Primary Care Physician Patient Instructions: Headache, Adult, Chest Pain, Fatigue Add. Discharge Instructions: Follow-up with her primary care physician on Wednesday. In the meantime, you may take the medicine as prescribed for headache, nausea and other symptoms. Return to the emergency room right away if symptoms worsen or if other new symptoms of concern develop. Scripts Metoclopramide HCl (Reglan) 10 Mg Tablet 10 MG PO Q8H for headache/nausea, #10 TAB Prov: VEGA BAUGH MD 05/13/19 [tylenol] No Conflict Check 500 MG PO Q6H for Pain, #50 TAB Prov: VEGA BAUGH MD 05/13/19 VEGA BAUGH MD May 13, 2019 14:30 POS
[2019-05-13] MEDS ORDERED: METO-310 PO (14:37)
[2019-05-13] MEDS ORDERED: tylenol PO (14:37)
[2019-05-13 14:45] VITALS: BP 128/68
== END 2019-05-13 14:54 | disposition home or self-care (01) ==
LOC: EDUNIT# 11:50 → ER FS 11:51
DX: R51 Headache (principal); R53.83 Other fatigue; R07.89 Other chest pain; E66.01 Morbid (severe) obesity due to excess calories; J45.909 Unspecified asthma, uncomplicated; K21.9 Gastro-esophageal reflux disease without esophagitis; E03.9 Hypothyroidism, unspecified; F32.9 Major depressive disorder, single episode, unspecified; Z68.43 Body mass index [BMI] 50.0-59.9, adult; Z95.9 Presence of cardiac and vascular implant and graft, unspecified; Z88.2 Allergy status to sulfonamides; Z88.1 Allergy status to other antibiotic agents; Z88.8 Allergy status to other drugs, medicaments and biological substances; Z87.891 Personal history of nicotine dependence; Z90.49 Acquired absence of other specified parts of digestive tract; Z90.710 Acquired absence of both cervix and uterus
CPT/HCPCS: 36415; 70450; 71045; 80053; 81000; 83880; 84484; 85025; 85610; 85730; 93005

== ENCOUNTER 2019-06-05 17:44 | Emergency (ER) | payer MEDICAID ==
[~2019-06-05] VITALS: Ht 170.2 cm; Wt 156.3 kg
[~2019-06-05 17:44] MED LIST changes: +METO-310 PO; -TRAZ150T72; +TRAZ150T72 PO; +tylenol PO
[2019-06-05] MEDS ORDERED: TETRACAINE 0.5% OPHTH SOLN 4 ML BTL (SINGLE DOSE ONLY) ONE (18:02)
[2019-06-05] MEDS ORDERED: FLUORESCEIN (FLUOR-I-STRIPS) 1 MG STRP ONE (18:02)
[2019-06-05] MEDS ORDERED: AMOX-358 PO (18:25)
--- NOTE | 2019-06-05 18:27 | ED Integumentary General ---
General Chief Complaint: Bite-Animal/Human/Insect Stated Complaint: CAT BITE Source: patient History of Present Illness Date Seen by Provider: Jun 05, 2019 Time Seen by Provider: 18:01 Initial Comments 48-year-old female presenting with complaints of a cat bite and scratches to her face. She states that she picked up her cat and it had been startled and tried to bite and scratch her face. She had a cut to her upper eyelid and felt like there might be something in her eye as well. This occurred just prior to arrival in the emergency department. She is able to control the bleeding prior to arrival. She states that her last tetanus shot was within the last 5 years. She denies any change in her vision from the right eye. She denies any other injuries. Allergies and Home Medications Allergies Coded Allergies: Sulfa (Sulfonamide Antibiotics) (Verified Allergy, Unknown, 06/27/18) hydroxyzine (Verified Allergy, Unknown, 06/27/18) prochlorperazine (Verified Allergy, Unknown, 12/20/16) tetracycline (Verified Allergy, Unknown, 06/27/18) Home Medications Amoxicillin/Potassium Clav 1 Each Tablet, 1 EACH PO BID Prescribed by: LYLA LANGE on 06/05/19 182 Cyclobenzaprine HCl 10 Mg Tablet, 10 MG PO BID PRN for PRN, (Reported) Diclofenac Sodium 100 Gm Gel..gram., 4 GM TP QID Prescribed by: CONRADO ESPINO on 04/25/19 1325 Dicyclomine HCl 10 Mg Capsule, 10 MG PO Q6H Prescribed by: VEGA BAUGH on 11/28/18 1711 Dicyclomine HCl 20 Mg Tablet, 20 MG PO Q6H Prescribed by: YOLETTE THOMAS on 04/18/19 2231 Erythromycin Base 1 Gm Oint...g., 0 OP Q8H 1/2 inch Prescribed by: LYLA LANGE on 06/05/19 1839 Furosemide 40 Mg Tablet, 40 MG PO DAILY, (Reported) Gabapentin 300 Mg Capsule, 300 MG PO PRN, (Reported) Hydrocodone/Acetaminophen 1 Each Tablet, 1 TAB PO Q4-6HR Prescribed by: ELEN POLLACK on 11/23/18 0150 Hydrocodone/Acetaminophen 1 Each Tablet, 1-2 EACH PO Q6H PRN for PAIN-MODERATE Prescribed by: EVARISTO CORTES MD on 01/08/19 1444 Hydrocodone/Acetaminophen 1 Each Tablet, 1 TAB PO Q4H Prescribed by: YOLETTE THOMAS on 02/09/19 2301 Hydrocodone/Acetaminophen 1 Each Tablet, 1 TAB PO Q4-6HR Prescribed by: YOLETTE THOMAS on 04/18/19 2231 Levothyroxine Sodium 50 Mcg Tablet, 50 MCG PO DAILY, (Reported) Meloxicam 15 Mg Tablet, 15 MG PO DAILY, (Reported) Metoclopramide HCl 10 Mg Tablet, 10 MG PO Q8H Prescribed by: VEGA BAUGH on 05/13/19 1437 Morphine Sulfate 15 Mg Tablet, 15 MG PO TID PRN for PAIN-SEVERE Prescribed by: CONRADO ESPINO on 04/25/19 1306 Ondansetron 4 Mg Tab.rapdis, 4 MG PO TID PRN for NAUSEA/VOMITING-1ST LINE Prescribed by: CONRADO ESPINO on 04/25/19 1306 Ondansetron HCl 8 Mg Tablet, 8 MG PO Q6H PRN for NAUSEA/VOMITING-1ST LINE Prescribed by: LEONIDES ALFARO on 08/29/18 1605 Oxycodone HCl/Acetaminophen 1 Each Tablet, 1 TAB PO Q6H PRN for ABDOMINAL PAIN Prescribed by: LEONIDES ALFARO on 08/29/18 1605 Oxycodone HCl/Acetaminophen 1 Each Tablet, 1 TAB PO Q4H Prescribed by: VEGA BAUGH on 11/28/18 1711 Oxycodone HCl/Acetaminophen 1 Each Tablet, 1 EACH PO Q4H PRN for PAIN-SEVERE Prescribed by: LYLA LANGE on 12/04/18 0441 Promethazine HCl 25 Mg Tablet, 25 MG PO Q6H PRN for NAUSEA/VOMITING Prescribed by: LYLA MARTINEZRT on 12/04/18 0441 Sucralfate 1 Gm Tablet, 1 GM PO ACHS Prescribed by: LYLA LANGE on 12/04/18 0441 Venlafaxine HCl 75 Mg Tab, 75 MG PO BID, (Reported) [tylenol] , 500 MG PO Q6H Prescribed by: VEGA BAUGH on 05/13/19 1437 Patient Home Medication List Home Medication List Reviewed: Yes Review of Systems Review of Systems Constitutional: No chills, No fever EENTM: eye pain (feels like something is in the right eye), tearing, other (photosensitivity of right eye); No blurred vision, No double vision, No vision loss Respiratory: no symptoms reported Cardiovascular: no symptoms reported Gastrointestinal: no symptoms reported Musculoskeletal: no symptoms reported Skin: see HPI, other (cut to right upper eyelid with large amount of bleeding at home but controlled by time she arrived at ED) Psychiatric/Neurological: Anxiety Past Upqhduy-Bfvlyh-Kdruju Hx Past Med/Social Hx: Reviewed Nursing Past Med/Soc Hx Patient Social History Alcohol Use: Denies Use Recreational Drug Use: No Smoking Status: Former Smoker Type Used: Cigarettes Former Smoker, Quit: Jun 15, 1996 2nd Hand Smoke Exposure: No Recent Foreign Travel: No Contact w/Someone Who Travel: No Recent Hopitalizations: Yes (J-tube 02/13) Physical Abuse: No Sexual Abuse: No Mistreated: No Fear: No Immunizations Up To Date Tetanus Booster (TDap): Less than 5yrs PED Vaccines UTD: Yes Date of Pneumonia Vaccine: Apr 18, 2013 Date of Influenza Vaccine: Apr 18, 2018 Seasonal Allergies Seasonal Allergies: No Past Medical History Surgeries: Yes (HERNIA X3) Abdominal, Appendectomy, Gallbladder, Hysterectomy Respiratory: No Asthma Currently Using CPAP: No Currently Using BIPAP: No Cardiac: No Chronic Edema/Swelling Neurological: No 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 Genitourinary: No Gastrointestinal: Yes Abdominal Hernia, Gastroesophageal Reflux, Gall Bladder Disease Musculoskeletal: Yes (scoliosis, knee pain back pain) Chronic Back Pain Endocrine: Yes Hypothyroidsim HEENT: No Cancer: No Psychosocial: Yes Depression Integumentary: No Blood Disorders: No Adverse Reaction/Blood Tranf: No Physical Exam Vital Signs Vital Signs - First Documented 06/05/19 18:00 Temp 36.3 Pulse 78 Resp 18 B/P (MAP) 95/78 (84) Pulse Ox 97 O2 Delivery Room Air Capillary Refill : General Appearance: WD/WN, obese HEENT: PERRL/EOMI, photophobia, other (superficial laceration to right upper eyelid 1.2 cm) Neck: non-tender, full range of motion, supple, normal inspection Neurologic/Psychiatric: ferry hand II-XII nml as tested, alert Skin: warm/dry, other (superficial abrasions to face and 1.2 cm superficial laceration to right upper eyelid) Skin Problem Location: face (around right upper eyelid and face) Progress/Results/Core Measures Results/Orders My Orders Orders - YLLA LANGE MD Erythromycin Ophth Oint (Erythromycin Op (06/05/19 22:00) Tetracaine 0.5% Ophth Maribell Sdv (Tetracai (06/05/19 18:30) Fluorescein Strips (Uxieb-I-Nnvyuj) (06/05/19 18:30) Erythromycin Ophth Oint (Erythromycin Op (06/05/19 18:48) Medications Given in ED Current Medications Medications Dose Ordered Sig/Ashley Route Start Time Stop Time Status Last Admin Dose Admin Tetracaine HCl 1 OR 2 DROPS INTO AFFEC... ONCE ONCE OP 06/05/19 18:30 06/05/19 18:32 DC 06/05/19 18:15 1 ML Vital Signs/I&O 06/05/19 06/05/19 18:00 18:59 Temp 36.3 36.3 Pulse 78 78 Resp 18 18 B/P (MAP) 95/78 (84) 95/78 (84) Pulse Ox 97 97 O2 Delivery Room Air Progress Progress Note : Progress Note Right eye was examined with fluorescein and black light. He drop of tetracaine was applied first to help with numbing the eye. There was no dye uptake on the right eye to indicate corneal abrasion or laceration to surface of the eye. For the superficial laceration on the upper eyelid there was no gaping of the wound and it was not pulling apart so it would not need stitches. Will treat with Augmentin since it was sent animal bite and he has erythromycin ophthalmic ointment on the superficial laceration of the eyelid and in the eye since she has some feeling of irritation to the cornea and no abrasion or laceration was noted on fluorescein dye exam. Counseled on follow-up and return precautions. Advised to use ice and acetaminophen or ibuprofen as needed for pain and swelling. Departure Impression Primary Impression: Cat bite of face Qualified Codes: S01.85XA - Open bite of other part of head, initial encounter; W55.01XA - Bitten by cat, initial encounter Additional Impressions: Laceration of eyelid of right eye without foreign body Qualified Codes: S01.111A - Laceration without foreign body of right eyelid and periocular area, initial encounter Corneal irritation of right eye Disposition: HOME, SELF-CARE Condition: Stable Departure-Patient Inst. Decision time for Depature: 18:23 Referrals: KITTY JAMA APRN (PCP) Primary Care Physician ABRAHAM BARFIELD MD (Family) Primary Care Physician Patient Instructions: Animal Bites (DC), Eye Contusion (DC), How to Use Eye Oin tment Add. Discharge Instructions: Apply a thin ribbon (about 1/2 in) of the antibiotic eye ointment to the right eye and eyelid 3 times a day for the next 5 days. Take the full course of the oral antibiotics. Follow up with clinic if having continued problems/concerns Ice 10-15 minutes every few hours as needed for swelling and pain. You may also alternate Acetaminophen and Ibuprofen if needed for pain. All discharge instructions reviewed with patient and/or family. Voiced under standing. Scripts Erythromycin Base (Erythromycin Opthalmic Ointment) 1 Gm Oint...g. 0 OP Q8H for 5 Days, #3.5 GM 0 Refills 1/2 inch Prov: LYLA LANGE MD 06/05/19 Amoxicillin/Potassium Clav (Augmentin 875-125 Tablet) 1 Each Tablet 1 EACH PO BID for cat bite for 7 Days, #14 TAB 0 Refills Prov: LYLA LANGE MD 06/05/19 LYLA LANGE MD Jun 05, 2019 18:27 POS
[2019-06-05] MEDS ORDERED: TETRACAINE 0.5% OPHTH SOLN 4 ML BTL (SINGLE DOSE ONLY) OP ONE (18:30)
[2019-06-05] MEDS ORDERED: FLUORESCEIN (FLUOR-I-STRIPS) 1 MG STRP OU NR (18:30)
[2019-06-05] MEDS ORDERED: ERYT1OIN6 OP (18:39)
[2019-06-05] MEDS ORDERED: ERYTHROMYCIN OPHTH OINT 1 GM (SINGLE USE) TUBE ONE (18:48)
[2019-06-05 18:59] VITALS: BP 95/78
[2019-06-05] MEDS ORDERED: ERYTHROMYCIN OPHTH OINT 1 GM (SINGLE USE) TUBE OP SCH (22:00)
== END 2019-06-05 19:00 | disposition home or self-care (01) ==
LOC: EDUNIT# 17:44 → ER FS 17:46
DX: S01.85XA Open bite of other part of head, initial encounter (principal); S01.111A Laceration without foreign body of right eyelid and periocular area, initial encounter; J45.909 Unspecified asthma, uncomplicated; K21.9 Gastro-esophageal reflux disease without esophagitis; E03.9 Hypothyroidism, unspecified; F32.9 Major depressive disorder, single episode, unspecified; Z90.49 Acquired absence of other specified parts of digestive tract; Z90.710 Acquired absence of both cervix and uterus; Z88.2 Allergy status to sulfonamides; Z88.1 Allergy status to other antibiotic agents; Z88.8 Allergy status to other drugs, medicaments and biological substances; Z87.891 Personal history of nicotine dependence; W55.01XA Bitten by cat, initial encounter
CPT/HCPCS: 99283

== ENCOUNTER 2019-06-08 11:20 | Outpatient (CLI) | payer MEDICAID ==
[~2019-06-08] VITALS: Ht 170 cm; Wt 155.6 kg
[~2019-06-08 11:20] MED LIST changes: -METH500T7 PO; -ONDN4T PO; -RT-ALBUINH IH
[2019-06-08] MEDS ORDERED: METH500T7 PO (11:38)
[2019-06-08] MEDS ORDERED: RT-ALBUINH IH (11:40)
[2019-06-08] MEDS ORDERED: ONDN4T PO (11:41)
== END 2019-06-08 13:00 | disposition home or self-care (01) ==
LOC: PREOP 11:20
PROVIDERS: ATTEND Orthopaedic Surgery
DX: Z01.818 Encounter for other preprocedural examination (principal)
CPT/HCPCS: 87081

== ENCOUNTER → 2019-06-08 | Outpatient (CLI) | payer MEDICAID ==
[~2019-06-08] MED LIST changes: +AMOX-358 PO; +ERYT1OIN6 OP; +METH500T7 PO; +ONDN4T PO; +RT-ALBUINH IH
--- NOTE | 2019-06-08 11:51 | Diagnostic Imaging Report ---
PROCEDURE: US Thyroid. TECHNIQUE: Multiple real-time grayscale images were obtained of the thyroid in various projections. INDICATION: Hypothyroidism. FINDINGS: There are no prior studies available for comparison. This study was technically difficult due to the patient's body habitus. The thyroid gland is borderline enlarged. The right lobe measures 4.4 x 2.3 x 2.4 cm while the left lobe is estimated to be 3.9 x 2.3 x 1.9 cm (normal gland size 4-5 x 2 x 2 cm or less). The gland seems fairly homogeneous. There is no discrete solid or cystic mass evident. IMPRESSION: There is borderline thyromegaly, but there is no discrete solid or cystic mass within either lobe. Dictated by: Dictated on workstation # [id number]
== END ==
LOC: RAD 10:09
PROVIDERS: ATTEND Internal Medicine Gastroenterology
DX: E04.9 Nontoxic goiter, unspecified (principal); K30 Functional dyspepsia; E03.8 Other specified hypothyroidism; R79.9 Abnormal finding of blood chemistry, unspecified
CPT/HCPCS: 36415; 76536; 85652; 86038; 86039; 86141

== ENCOUNTER 2019-06-14 09:00 | Day surgery (SDC) | payer MEDICAID ==
--- NOTE | 2019-06-08 15:04 | HISTORY AND PHYSICAL ---
DATE OF SERVICE: ADMISSION HISTORY AND PHYSICAL DATE OF SURGERY: 06/14/2019. This will be for outpatient surgery on 06/14/2019 for right knee arthroscopy. HISTORY OF PRESENT ILLNESS: The patient is a 48-year-old female with complaints of progressively worsening right knee pain. She reports knee pain and activity limitations. She has undergone treatment with injections and activity modifications without relief. She reports difficulty walking because of the knee and because of this, she has elected to proceed with surgical intervention. Radiographs revealed mild medial and patellofemoral joint space narrowing. REVIEW OF SYSTEMS: No chest pain, no shortness of breath, no dysuria. PAST MEDICAL HISTORY: Allergic rhinitis, anxiety disorder, asthma, back pain, depression, fatigue, hyperlipidemia, hypertension, hypothyroidism, insomnia, osteoarthritis, renal insufficiency, chronic pain, ADHD, irregular heart rhythm and seroma. PAST SURGICAL HISTORY: Adenoidectomy, appendectomy, cardiac catheterization, cholecystectomy, hysterectomy, tonsillectomy and abdominal hernia repair. FAMILY HISTORY: Noncontributory. PRIMARY CARE PROVIDER: Vianey Coelho. MEDICATIONS: Gabapentin, furosemide, cyclobenzaprine, albuterol, loratadine, Ventolin, venlafaxine, trazodone, Meloxicam and levothyroxine. ALLERGIES: CELEBREX, HYDROXYZINE, LISINOPRIL, SULFA, TETRACYCLINE and COMPAZINE. SOCIAL HISTORY: The patient denies alcohol and tobacco use. PHYSICAL EXAMINATION: GENERAL: The patient is well developed, well-nourished, in no acute distress. HEENT: Normocephalic and atraumatic. Pupils are equal, round, reactive to light. Oropharynx is clear. NECK: Supple, with no lymphadenopathy. LUNGS: Clear to auscultation bilaterally. HEART: Regular rate and rhythm. ABDOMEN: Soft, nontender and nondistended. EXTREMITIES: The right knee demonstrates marked patellofemoral crepitus and pain with patellar loading. She is tender along the medial joint line. She has pain medially with Hakan's. No varus valgus laxity. Negative anterior and posterior drawer. She ambulates with an antalgic gait. Range of motion is 0/2/120. IMPRESSION: Right knee chondromalacia of the patella with associated medial meniscal tear. PLAN: Right knee arthroscopy with chondroplasty and partial meniscectomy. The risks, benefits, options, ramifications and recovery were discussed at length with the patient. She understands and wishes to proceed. Job ID: [id number] DocumentID: [id number] Dictated Date: 06/06/2019 09:55:59 Rn Neurosurgical Date: 06/06/2019 11:50:48 Dictated By: ELAINA FERNANDEZ MD
[~2019-06-14] VITALS: Ht 170 cm; Wt 155.6 kg
[2019-06-14] VITALS (11 sets, daily range): BP systolic 118–186; BP diastolic 72–95
[~2019-06-14 09:00] MED LIST changes: +METH500T7 PO; +ONDN4T PO; +RT-ALBUINH IH
--- NOTE | 2019-06-14 09:17 | Progress Note-Pre Operative ---
Pre-Operative Progress Note H&P Reviewed The H&P was reviewed, patient examined and no changes noted. Date Seen by Provider: Jun 14, 2019 Time Seen by Provider: 09:17 Date H&P Reviewed: Jun 14, 2019 Time H&P Reviewed: :17 Pre-Operative Diagnosis: right medial and meniscus tear and chondromalacia ELAINA FERNANDEZ MD Jun 14, 2019 09:17
--- NOTE | 2019-06-14 09:18 | Progress Note-Post Operative ---
Post-Operative Progess Note Surgeon (s)/Talent Acquisition Partner (s) Surgeon ELAINA FERNANDEZ MD Talent Acquisition Partner: Mushtaq Anguiano Pre-Operative Diagnosis right medial meniscus tear and chondromalacia Post-Operative Diagnosis right knee medial and lateral meniscus tears and chondromalacia of the patella. lateral and medial femoral condyles and patella Procedure & Operative Findings Date of Procedure 06/14/19 Procedure Performed/Findings right knee arthroscopic partial medial and lateral meniscectomies and chondroplasty of the medial and lateral femoral condyles, lateral tibial plateau and patella Anesthesia Type GETA Estimated Blood Loss Estimated blood loss (mL): minimal Specimens/Packing Specimens Removed none Packing: none ELAINA FERNANDEZ MD Jun 14, 2019 09:18
[2019-06-14] MEDS ORDERED: ceFAZolin INJECTION 1,000 MG in WATER (STERILE) FOR INJECTION 10 ML IV ONE (09:30)
[2019-06-14] MEDS: LACTATED RINGERS 1,000 ML IV PRN ×2 (09:31→11:53)
[2019-06-14] MEDS ORDERED: HYDROcodone/APAP 7.5 MG/325 MG (LORTAB, LORCET PLUS) TABLET PO PRN (10:00)
[2019-06-14] MEDS ORDERED: fentaNYL INJECTION 100 MCG/2 ML AMP ONE ×2 (10:10→10:14)
[2019-06-14] MEDS ORDERED: DEXAMETHASONE 10 MG/ML (DECADRON) 1 ML VIAL ONE (10:13)
[2019-06-14] MEDS ORDERED: ONDANSETRON 4 MG/2 ML (SDV) Z0FRAN ONE ×2 (10:13→11:51)
[2019-06-14] MEDS ORDERED: SEVOFLURANE (ULTANE) 15 ML INHAL SOLN ONE (10:13)
[2019-06-14] MEDS ORDERED: LIDOCAINE PF 2% 5 ML (XYLOCAINE) VIAL ONE (10:13)
[2019-06-14] MEDS ORDERED: proPOfol 200 MG/20 ML (DIPRIVAN) VIAL IV ONE (10:13)
[2019-06-14] MEDS ORDERED: MIDAZOLAM 2 MG/2 ML (VERSED) VIAL ONE (10:14)
[2019-06-14] MEDS ORDERED: fentaNYL INJECTION 100 MCG/2 ML AMP IV ONE (10:15)
[2019-06-14] MEDS ORDERED: BUPIVACAINE 0.25% 30 ML (SENSORCAINE) VIAL ONE (10:23)
[2019-06-14] MEDS ORDERED: morphine PF (DURAMORPH) 10 MG/10 ML AMP ONE (11:05)
[2019-06-14] MEDS ORDERED: HYDROmorphone 2 MG/ML VIAL (DILAUDID) IV ONE (11:45)
[2019-06-14] MEDS ORDERED: ONDANSETRON 4 MG/2 ML (SDV) Z0FRAN IVP PRN (11:45)
[2019-06-14] MEDS ORDERED: morphine INJ 10 MG/ML 1ML (SYR OR VIAL) IVP ONE (11:45)
[2019-06-14] MEDS ORDERED: HYDROmorphone 2 MG/ML VIAL (DILAUDID) ONE (11:47)
--- NOTE | 2019-06-14 14:31 | Physical Therapy Ortho Eval ---
PT Orthopedic Evaluation Type of Surgery Knee Scope RLE WBAT Prior Level of Function Current Living Status: Significant Other Locomotion (Upon Admit): Independent Established Durable Medical Eq: None Subjective Subjective Patient in WC pre tx, agrees to PT, has no complaints of pain in her right knee but states she has pain in her hips. Patient is in the WC because apparently she had an accident in the bed and the nurse aide cleaned her up and put a bariatric hospital gown on her that does completely cover her. Patient is drowsy and lethargic. Entry Into Home: Level Entry ROM Right knee flexion 80 degrees, extension 0 degrees Transfer Transfers (B, C, W/C) (FIM): 4 CGA Gait Gait Assistive Device: FWW Right Lower Extremity: Right Weight Bearing Status RLE: Weight Bearing/Tolerated Gait (FIM): 4 Distance: 80' Gait Level of Assist: 4 (CGA) Summary/Comments Some unsteadiness but no LOB, patient is able to bear weight on her right leg. Treatment Rendered Treatment: Therapeutic Exercises, Gait Train, Reviewed Precautions Exercise Instruction: Quad Sets, Heel Slides, Ankle Pumps Assessment/Goals Goal Time Frame: 1 Visit Understands HEP: Yes Safe Ambulation: Yes Safe ambulation with therapist but notified nurse that patient is lethargic and will not be safe to ambulate on her own. Plan Treatment Plan: Discharge PT/Family Agrees to Plan: Yes Time Time In: 1354 Time Out: 1408 Total Billed Treatment Time: 14 Billed Treatment Time 1 visit JEFF MCNAMARA PT Jun 14, 2019 14:31
[2019-06-14] MEDS ORDERED: HYDR-3816 PO (14:34)
--- NOTE | 2019-06-14 15:13 | Anesthesia-General Post-Op ---
General Patient Condition Mental Status/LOC: Same as Preop Cardiovascular: Satisfactory Nausea/Vomiting: Absent Respiratory: Satisfactory Pain: Controlled Complications: Absent Post Op Complications Complications None Follow Up Care/Instructions Patient Instructions None needed. Anesthesia/Patient Condition Patient Condition Patient was seen after the procedure and she was doing well, no complaints, stable vital signs, no apparent adverse anesthesia problems. GAIL SYED DO Jun 14, 2019 15:13
--- NOTE | 2019-06-14 20:19 | OPERATIVE REPORT ---
DATE OF SERVICE: 06/14/2019 PREOPERATIVE DIAGNOSES: 1. Right knee medial meniscus tear. 2. Right knee chondromalacia of patella. 3. Right knee chondromalacia of the medial femoral condyle. POSTOPERATIVE DIAGNOSES: 1. Right knee medial meniscus tear. 2. Right knee chondromalacia of patella. 3. Right knee chondromalacia of the medial femoral condyle. 4. Right knee lateral meniscus tear. 5. Right knee chondromalacia of the lateral femoral condyle. 6. Right knee chondromalacia of the lateral tibial plateau. PROCEDURES: 1. Right knee arthroscopic partial medial meniscectomy. 2. Right knee arthroscopic partial lateral meniscectomy. 3. Right knee arthroscopic chondroplasty of the patella. 4. Right knee arthroscopic chondroplasty of the medial femoral condyle. 5. Right knee arthroscopic chondroplasty of the lateral femoral condyle. 6. Right knee arthroscopic chondroplasty of the lateral tibial plateau. SURGEON: Walter Fernandez MD HOG KILLER: Mushtaq Neville, who assisted throughout the procedure and closed the incisions. ANESTHESIA: General endotracheal by Dr. Camilo. ESTIMATED BLOOD LOSS: Minimal. DRAINS: None. COMPLICATIONS: None. POSTOPERATIVE PLAN: Routine arthroscopy protocol. The patient was transferred to the recovery room awake and in stable condition. STATEMENT OF MEDICAL NECESSITY: The patient is a 48-year-old female with complaints of right knee pain, catching, locking and swelling. She did have some arthritis noted in her medial and patellofemoral compartments. She tried rest, activity modifications, and anti-inflammatories without relief and due to functional impairment and failure to improve with conservative measures, the patient elected to proceed with surgical intervention. Examination under anesthesia revealed range of motion of 0/0/125 with negative Gerardo, negative anterior and posterior drawer. No varus valgus laxity. Arthroscopic findings of patella demonstrated grade II chondral flaps diffusely in a 20 x 20 area of the trochlea demonstrated no gross chondral abnormalities. Medial and lateral gutters were clear. ACL and PCL were intact. The lateral compartment demonstrated a tear of the posterior horn and body of the lateral meniscus involving approximately 1/3 of the posterior horn and body. There was grade II-III chondral flap in the anterior portion of femoral condyle in an 8 x 8 area. The lateral tibial plateau had demonstrated grade II chondral flap centrally in an 8 x 8 area. The medial compartment demonstrated a tear of the posterior horn and body of the medial meniscus involving approximately 20% of the posterior horn and body. The medial femoral condyle demonstrated grade II chondral flap centrally in a 10 x 10 area. PROCEDURE IN DETAIL: After risks and benefits of procedure were discussed and questions were answered, an informed consent was signed and placed on chart. The operative site was confirmed in the preoperative holding area initialed by the surgeon. The patient was transferred to the operating room and after adequate levels of general endotracheal anesthetic were obtained, a timeout was called, confirming the operative site. Examination under anesthesia was performed with above findings noted. The right lower extremity was prepped and draped in the usual sterile fashion. The knee joint was injected with 60 mL of fluid and a standard inferolateral portal was placed with the arthroscope under direct visualization, inferior medial portal was created. The menisci and cruciates were carefully probed with the above findings noted. The unstable chondral flaps of the patella were debrided with shaver back to a stable edge. Scope was redirected into the lateral compartment of the knee; the unstable chondral flaps in lateral femoral condyle and lateral tibial plateau were debrided with shaver back to a stable edge. Lateral meniscus tear was debrided with shaver back to a stable edge. This was carefully probed with no further tearing or instability noted. The scope was redirected into the medial compartment and unstable chondral flaps of the medial femoral condyle were debrided with shaver and the unstable medial meniscus tear was debrided with a biter and shaver back to a stable edge. This was carefully probed with no further tearing or instability noted. The knee joint was copiously irrigated. Port sites were closed with 4-0 nylon in simple interrupted fashion. Knee joint was injected with Duramorph. Portal sites were infiltrated with plain Marcaine. Soft dressing was applied. The patient was transferred to the recovery room awake and in stable condition. Job ID: [id number] DocumentID: [id number] Dictated Date: 06/14/2019 11:42:56 [employer] Date: 06/14/2019 20:18:25 Dictated By: WALTER FERNANDEZ MD
== END 2019-06-14 14:45 | disposition home or self-care (01) ==
LOC: SDC 09:00
PROVIDERS: ATTEND Orthopaedic Surgery
DX: S83.241A Other tear of medial meniscus, current injury, right knee, initial encounter (principal); S83.281A Other tear of lateral meniscus, current injury, right knee, initial encounter; M94.261 Chondromalacia, right knee; M19.90 Unspecified osteoarthritis, unspecified site; J45.909 Unspecified asthma, uncomplicated; G47.33 Obstructive sleep apnea (adult) (pediatric); I10 Essential (primary) hypertension; E03.9 Hypothyroidism, unspecified; E78.5 Hyperlipidemia, unspecified; G89.29 Other chronic pain; F41.9 Anxiety disorder, unspecified; F32.9 Major depressive disorder, single episode, unspecified; F90.9 Attention-deficit hyperactivity disorder, unspecified type; Z90.710 Acquired absence of both cervix and uterus; Z88.1 Allergy status to other antibiotic agents; Z88.2 Allergy status to sulfonamides; Z88.8 Allergy status to other drugs, medicaments and biological substances; Z79.899 Other long term (current) drug therapy; Z99.89 Dependence on other enabling machines and devices; Z90.89 Acquired absence of other organs; Z90.49 Acquired absence of other specified parts of digestive tract; Z80.1 Family history of malignant neoplasm of trachea, bronchus and lung
CPT/HCPCS: 87081

== ENCOUNTER 2019-06-28 03:28 | Emergency (ER) | payer MEDICAID ==
[~2019-06-28] VITALS: Ht 170.1 cm; Wt 145.4 kg
[~2019-06-28 03:28] MED LIST changes: +HYDR-3816 PO
--- NOTE | 2019-06-28 05:27 | ED Lower Extremity ---
General Stated Complaint: KNEE PAIN, FALL Source: patient Exam Limitations: no limitations History of Present Illness Date Seen by Provider: Jun 28, 2019 Time Seen by Provider: 05:25 Initial Comments Patient tripped and fell on her left knee earlier tonight. She complains of pain and swelling to her left knee. She is able to bear weight. She is recovering from a meniscal repair on her right knee. Allergies and Home Medications Allergies Coded Allergies: tetracycline (Verified Allergy, Severe, N/V, 06/08/19) Sulfa (Sulfonamide Antibiotics) (Verified Allergy, Mild, N/V, 06/08/19) hydroxyzine (Verified Allergy, Mild, "JITTERS", 06/08/19) melatonin (Verified Allergy, Mild, NIGHTMARES, 06/08/19) prochlorperazine (Verified Allergy, Mild, "JITTERS", 06/08/19) Home Medications Albuterol Sulfate 1 Puff Puff, 2 PUFF IH Q4H PRN for SHORTNESS OF BREATH, (Reported) 1 PUFF = 90 MCG Cyclobenzaprine HCl 10 Mg Tablet, 10 MG PO BID PRN for PRN, (Reported) Furosemide 40 Mg Tablet, 40 MG PO DAILY, (Reported) Gabapentin 300 Mg Capsule, 300 MG PO TID, (Reported) Hydrocodone/Acetaminophen 1 Each Tablet, 1 TAB PO Q4H Prescribed by: CARMENCITA FAYE on 06/14/19 1434 Levothyroxine Sodium 50 Mcg Tablet, 50 MCG PO DAILY, (Reported) Methocarbamol 500 Mg Tablet, 500 MG PO BID PRN for PAIN-MODERATE (5-7), (Reported) Ondansetron HCl 4 Mg Tab, 4 MG PO PRN PRN for NAUSEA/VOMITING, (Reported) Trazodone HCl 150 Mg Tablet, 150 MG PO HS, (Reported) Venlafaxine HCl 75 Mg Tab, 75 MG PO BID, (Reported) Patient Home Medication List Home Medication List Reviewed: Yes Review of Systems Constitutional: no symptoms reported Respiratory: no symptoms reported Musculoskeletal: joint pain Skin: no symptoms reported Psychiatric/Neurological: No Symptoms Reported Past Kvvlwrl-Kwfcor-Dsvcxe Hx Patient Social History Type Used: Cigarettes Former Smoker, Quit: Jun 15, 1996 2nd Hand Smoke Exposure: No Recent Foreign Travel: No Contact w/Someone Who Travel: No Recent Hopitalizations: No Immunizations Up To Date Tetanus Booster (TDap): Less than 5yrs PED Vaccines UTD: Yes Date of Pneumonia Vaccine: Apr 18, 2013 Date of Influenza Vaccine: Apr 03, 2019 Seasonal Allergies Seasonal Allergies: No Past Medical History Surgeries: Yes (HERNIA X3) Abdominal, Appendectomy, Gallbladder, Hysterectomy, Tonsillectomy Respiratory: Yes Asthma, Sleep Apnea Currently Using CPAP: No Currently Using BIPAP: No Cardiac: No Chronic Edema/Swelling Neurological: Yes Headaches /Migraines 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 0oz. 145.695982ug; 53.84 BMI Method:Stated General Appearance: WD/WN, no apparent distress, obese Cardiovascular: regular rate, rhythm Respiratory: no respiratory distress Knees: left knee soft tissue tenderness, left knee swelling (tender swollen over left patellar tendon) Progress/Results/Core Measures Results/Orders My Orders Orders - TJ VALENCIA MD Knee 3 View Left (06/28/19 05:24) Progress Progress Note : Time: 06:00 Progress Note Care turned over to Dr. Cassidy at 0600 Departure Impression Primary Impression: Knee contusion Disposition: HOME, SELF-CARE Condition: Stable Departure-Patient Inst. Referrals: KITTY JAMA APRN (PCP) Primary Care Physician ABRAHAM BARFEILD MD (Family) Primary Care Physician TJ VALENCIA MD Jun 28, 2019 05:27
[2019-06-28] MEDS ORDERED: KETOROLAC 60 MG/2 ML VIAL IM STA (06:15)
[2019-06-28 06:30] VITALS: BP 154/90
--- NOTE | 2019-06-28 06:41 | Diagnostic Imaging Report ---
INDICATION: Fall with left knee pain. 3 views were obtained. FINDINGS: There are moderate 3 compartment osteophytic changes. There is no fracture or dislocation. Soft tissues are unremarkable. IMPRESSION: 3 compartment osteoarthritic changes, otherwise unremarkable. Dictated by: Dictated on workstation # [id number]
== END 2019-06-28 06:31 | disposition home or self-care (01) ==
LOC: EDUNIT# 03:28 → ER FS 03:30
DX: S80.02XA Contusion of left knee, initial encounter (principal); J45.909 Unspecified asthma, uncomplicated; G43.909 Migraine, unspecified, not intractable, without status migrainosus; E03.9 Hypothyroidism, unspecified; F32.9 Major depressive disorder, single episode, unspecified; Z88.1 Allergy status to other antibiotic agents; Z88.2 Allergy status to sulfonamides; Z88.8 Allergy status to other drugs, medicaments and biological substances; Z87.891 Personal history of nicotine dependence; Z90.49 Acquired absence of other specified parts of digestive tract; Z90.710 Acquired absence of both cervix and uterus; Z90.89 Acquired absence of other organs; W01.0XXA Fall on same level from slipping, tripping and stumbling without subsequent striking against object, initial encounter
CPT/HCPCS: 73562; 96372

== ENCOUNTER 2019-07-04 19:28 | Emergency (ER) | payer MEDICAID ==
[~2019-07-04] VITALS: Ht 170 cm; Wt 154.0 kg
--- NOTE | 2019-07-04 19:59 | ED Lower Extremity ---
General Chief Complaint: Lower Extremity Stated Complaint: KNEE/HIP PAIN Nursing Triage Note: PT STATES SHE STEPPED ON HER CAT AND INJURED HER RIGHT KNEE Nursing Sepsis Screen: No Definite Risk History of Present Illness Date Seen by Provider: Jul 04, 2019 Time Seen by Provider: 19:40 Initial Comments Patient recently had arthroscopy on her right knee stepped on a Steel which caused her to jerk up suddenly with pain on her right knee and then in the right posterior lower spine. There is no fall no contact no twisting the knee was not loaded at the time she had her surgery couple weeks back. Onset: this evening Severity: moderate Pain/Injury Location: right knee Method of Injury: twisted Modifying Factors: Worse With Movement Allergies and Home Medications Allergies Coded Allergies: tetracycline (Verified Allergy, Severe, N/V, 06/08/19) Sulfa (Sulfonamide Antibiotics) (Verified Allergy, Mild, N/V, 06/08/19) hydroxyzine (Verified Allergy, Mild, "JITTERS", 06/08/19) melatonin (Verified Allergy, Mild, NIGHTMARES, 06/08/19) prochlorperazine (Verified Allergy, Mild, "JITTERS", 06/08/19) Home Medications Albuterol Sulfate 1 Puff Puff, 2 PUFF IH Q4H PRN for SHORTNESS OF BREATH, (Reported) 1 PUFF = 90 MCG Cyclobenzaprine HCl 10 Mg Tablet, 10 MG PO BID PRN for PRN, (Reported) Furosemide 40 Mg Tablet, 40 MG PO DAILY, (Reported) Gabapentin 300 Mg Capsule, 300 MG PO TID, (Reported) Hydrocodone/Acetaminophen 1 Each Tablet, 1 TAB PO Q4H Prescribed by: CARMENCITA FAYE on 06/14/19 1434 Levothyroxine Sodium 50 Mcg Tablet, 50 MCG PO DAILY, (Reported) Methocarbamol 500 Mg Tablet, 500 MG PO BID PRN for PAIN-MODERATE (5-7), (Reported) Ondansetron HCl 4 Mg Tab, 4 MG PO PRN PRN for NAUSEA/VOMITING, (Reported) Trazodone HCl 150 Mg Tablet, 150 MG PO HS, (Reported) Venlafaxine HCl 75 Mg Tab, 75 MG PO BID, (Reported) Patient Home Medication List Home Medication List Reviewed: Yes Review of Systems Constitutional: No chills, No dizziness, No fever Musculoskeletal: back pain, joint pain; No joint swelling, No muscle pain, No muscle cramps, No muscle weakness Skin: No lesions, No rash Psychiatric/Neurological: No Symptoms Reported Past Bayhhln-Fhqkzt-Nmbuvr Hx Past Med/Social Hx: Reviewed Nursing Past Med/Soc Hx Patient Social History Alcohol Use: Denies Use Recreational Drug Use: No Smoking Status: Never a Smoker Type Used: Cigarettes Former Smoker, Quit: Jun 15, 1996 2nd Hand Smoke Exposure: No Recent Foreign Travel: No Contact w/Someone Who Travel: No Recent Infectious Disease Expo: No Recent Hopitalizations: No Physical Abuse: No Sexual Abuse: No Mistreated: No Immunizations Up To Date Tetanus Booster (TDap): Less than 5yrs PED Vaccines UTD: Yes Date of Pneumonia Vaccine: Apr 18, 2013 Date of Influenza Vaccine: Apr 03, 2019 Seasonal Allergies Seasonal Allergies: No Past Medical History Surgeries: Yes (HERNIA X3) Abdominal, Appendectomy, Gallbladder, Hysterectomy, Tonsillectomy Respiratory: Yes Asthma, Sleep Apnea Currently Using CPAP: No Currently Using BIPAP: No Cardiac: No Chronic Edema/Swelling Neurological: Yes Headaches /Migraines [employer]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 Sexually Transmitted Disease: No HIV/AIDS: No Genitourinary: No Gastrointestinal: Yes Abdominal Hernia, Chronic Constipation, Chronic Diarrhea Musculoskeletal: Yes (scoliosis, knee pain back pain) Chronic Back Pain Endocrine: Yes (MERLIN'S) Hypothyroidsim HEENT: Yes Loss of Vision: Denies Hearing Impairment: Denies Cancer: No Psychosocial: Yes (TAKES EFFEXOR FOR NIGHTMARES) Depression Integumentary: No Blood Disorders: No Adverse Reaction/Blood Tranf: No (N/A) Physical Exam Vital Signs Vital Signs - First Documented 07/04/19 19:35 Temp 36.5 Pulse 77 Resp 20 B/P (MAP) 157/72 (100) Pulse Ox 96 O2 Delivery Room Air Capillary Refill : Less Than 3 Seconds Height, Weight, BMI Height: 5'7.00" Weight: 320lbs. 0oz. 145.775506ck; 53.00 BMI Method:Stated General Appearance: WD/WN, mild distress Cardiovascular: regular rate, rhythm, no murmur Respiratory: lungs clear, normal breath sounds Back: other (right SI joint tenderness with mild amount of spas) Hips: left hip non-tender, left hip normal inspection; right hip limited range of motion, right hip pain, right hip soft tissue tenderness Knees: left knee non-tender; right knee pain, right knee soft tissue tenderness Ankles: bilateral ankle non-tender, bilateral ankle normal inspection Neurologic/Tendon: normal sensation, normal motor functions Neurologic/Psychiatric: alert, oriented x 3 Skin: normal color, warm/dry Progress/Results/Core Measures Results/Orders My Orders Orders - MYRTLE FABIAN JR, MD Knee 3 View Right (07/04/19 19:53) Vital Signs/I&O 07/04/19 19:35 Temp 36.5 Pulse 77 Resp 20 B/P (MAP) 157/72 (100) Pulse Ox 96 O2 Delivery Room Air Blood Pressure Mean: 100 Progress Progress Note : Time: 20:49 Progress Note X-rays are negative and at this time I feel like just the shock of the rapid muscle movement as strained the muscles in her low back as well as the area and around her knee at this time we'll supply some compression with an Delgado wrap lacer on crutches use Tylenol and Naprosyn for pain as she has at home follow up with her physician to have done the surgery in the past Departure Impression Primary Impression: Sprain of knee Additional Impression: Low back strain Disposition: 01 HOME, SELF-CARE Condition: Stable Departure-Patient Inst. Referrals: KITTY JAMA APRN (PCP) Primary Care Physician ABRAHAM BARFIELD MD (Family) Primary Care Physician Patient Instructions: Knee Sprain (DC), Low Back Pain (DC), Lumbar Muscle Strain (DC) MYRTLE FABIAN JR, MD Jul 04, 2019 19:59
--- NOTE | 2019-07-04 20:36 | Diagnostic Imaging Report ---
EXAM: Right knee at 7:57 PM INDICATION: Injury knee pain 3 views were obtained. COMPARISON: There are no prior studies available for comparison. There is no fracture, dislocation or acute bony abnormality evident. There is mild degenerative disease of the knee joint. The soft tissues are unremarkable. IMPRESSION: There is no evidence for an acute bony abnormality. Dictated by: Dictated on workstation # [id number]
[2019-07-04 20:55] VITALS: BP 157/72
== END 2019-07-04 20:55 | disposition home or self-care (01) ==
LOC: EDUNIT# 19:28 → ER FS 19:30
DX: S83.92XA Sprain of unspecified site of left knee, initial encounter (principal); S33.5XXA Sprain of ligaments of lumbar spine, initial encounter; J45.909 Unspecified asthma, uncomplicated; G43.909 Migraine, unspecified, not intractable, without status migrainosus; E03.9 Hypothyroidism, unspecified; F32.9 Major depressive disorder, single episode, unspecified; Z88.1 Allergy status to other antibiotic agents; Z88.2 Allergy status to sulfonamides; Z88.8 Allergy status to other drugs, medicaments and biological substances; Z87.891 Personal history of nicotine dependence; Z90.49 Acquired absence of other specified parts of digestive tract; Z90.710 Acquired absence of both cervix and uterus; X50.1XXA Overexertion from prolonged static or awkward postures, initial encounter
CPT/HCPCS: 73562

== ENCOUNTER 2019-08-07 13:13 | Emergency (ER) | payer MEDICAID ==
[~2019-08-07] VITALS: Ht 170 cm; Wt 150.3 kg
--- NOTE | 2019-08-07 13:24 | ED General ---
General Stated Complaint: SACRUM PAIN Source of Information: Patient Exam Limitations: No Limitations History of Present Illness Date Seen by Provider: Aug 07, 2019 Time Seen by Provider: 13:24 Initial Comments 48-year-old female presents with low back pain. Patient reports that she has chronic back pain and thought she was supposed to get an injection today but realizes now is supposed to be . Patient has no acute injury. Patient's pain is in the middle and race down the right leg. She feels like there is a "swelling there" that she is "nauseated for the pain" patient does not have any numbness tingling bowel or bladder issues. Patient reports that she ran out of her Flexeril. She reports the pain is at that top of her gluteal cleft. Allergies and Home Medications Allergies Coded Allergies: tetracycline (Verified Allergy, Severe, N/V, 06/08/19) Sulfa (Sulfonamide Antibiotics) (Verified Allergy, Mild, N/V, 06/08/19) hydroxyzine (Verified Allergy, Mild, "JITTERS", 06/08/19) melatonin (Verified Allergy, Mild, NIGHTMARES, 06/08/19) prochlorperazine (Verified Allergy, Mild, "JITTERS", 06/08/19) Home Medications Albuterol Sulfate 1 Puff Puff, 2 PUFF IH Q4H PRN for SHORTNESS OF BREATH, (Reported) 1 PUFF = 90 MCG Cyclobenzaprine HCl 10 Mg Tablet, 10 MG PO BID PRN for PRN, (Reported) Cyclobenzaprine HCl 10 Mg Tablet, 10 MG PO BID PRN for SPASMS Prescribed by: JUAN KUMAR on 08/07/19 1347 Furosemide 40 Mg Tablet, 40 MG PO DAILY, (Reported) Gabapentin 300 Mg Capsule, 300 MG PO TID, (Reported) Hydrocodone/Acetaminophen 1 Each Tablet, 1 TAB PO Q4H Prescribed by: CARMENCITA FAYE on 06/14/19 1434 Levothyroxine Sodium 50 Mcg Tablet, 50 MCG PO DAILY, (Reported) Methocarbamol 500 Mg Tablet, 500 MG PO BID PRN for PAIN-MODERATE (5-7), (Reported) Ondansetron 4 Mg Tab.rapdis, 4 MG PO Q6H PRN for NAUSEA/VOMITING Prescribed by: JUAN KUMAR on 08/07/19 1347 Ondansetron HCl 4 Mg Tab, 4 MG PO PRN PRN for NAUSEA/VOMITING, (Reported) Trazodone HCl 150 Mg Tablet, 150 MG PO HS, (Reported) Venlafaxine HCl 75 Mg Tab, 75 MG PO BID, (Reported) Patient Home Medication List Home Medication List Reviewed: Yes Review of Systems Review of Systems Constitutional: No chills, No fever, No weakness EENTM: see HPI Respiratory: no symptoms reported Cardiovascular: no symptoms reported Gastrointestinal: No abdominal pain, No constipation; nausea; No vomiting Genitourinary: no symptoms reported Musculoskeletal: see HPI, back pain Skin: no symptoms reported Past Tvorlbb-Tierln-Mslirj Hx Past Med/Social Hx: Reviewed Nursing Past Med/Soc Hx Patient Social History Type Used: Cigarettes Former Smoker, Quit: Jun 15, 1996 2nd Hand Smoke Exposure: No Recent Foreign Travel: No Recent Hopitalizations: No Immunizations Up To Date Tetanus Booster (TDap): Less than 5yrs PED Vaccines UTD: Yes Date of Pneumonia Vaccine: Apr 18, 2013 Date of Influenza Vaccine: Apr 03, 2019 Seasonal Allergies Seasonal Allergies: No Past Medical History Surgeries: Yes (HERNIA X3) Abdominal, Appendectomy, Gallbladder, Hysterectomy, Tonsillectomy Respiratory: Yes Asthma, Sleep Apnea Currently Using CPAP: No Currently Using BIPAP: No Cardiac: No Chronic Edema/Swelling Neurological: Yes Headaches /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 Sexually Transmitted Disease: No HIV/AIDS: No Genitourinary: No Gastrointestinal: Yes Abdominal Hernia, Chronic Constipation, Chronic Diarrhea Musculoskeletal: Yes (scoliosis, knee pain back pain) Chronic Back Pain Endocrine: Yes (MERLIN'S) Hypothyroidsim HEENT: Yes Loss of Vision: Denies Hearing Impairment: Denies Cancer: No Psychosocial: Yes (TAKES EFFEXOR FOR NIGHTMARES) Depression Integumentary: No Blood Disorders: No Adverse Reaction/Blood Tranf: No (N/A) Physical Exam Vital Signs Vital Signs - First Documented 08/07/19 13:29 Temp 36.7 Pulse 73 Resp 20 B/P (MAP) 171/81 (111) Pulse Ox 93 Capillary Refill : Height, Weight, BMI Height: 5'7.00" Weight: 320lbs. 0oz. 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 Progress/Results/Core Measures Suspected Sepsis SIRS Temperature: Pulse: Respiratory Rate: Blood Pressure / Mean: Results/Orders My Orders Orders - KUMAR,JUAN L DO Ketorolac Injection (Toradol Injection) (08/07/19 13:33) Orphenadrine Injection (Norflex Injectio (08/07/19 13:33) Ondansetron Oral Dissolve Tab (Zofran (08/07/19 13:33) Vital Signs/I&O 08/07/19 13:29 Temp 36.7 Pulse 73 Resp 20 B/P (MAP) 171/81 (111) Pulse Ox 93 Capillary Refill : Progress Note : Time: 13:39 Progress Note Discussed with patient that there are no acute findings on her exam pain indicating an early pilonidal cyst, abscess or any other inflammation. There is no noticeable swelling or discoloration. Patient does have known chronic lower back pain and told her that she will need to keep her follow-up with her back specialist does her injections. I will provide her with a Norflex and Toradol shot and refill her cyclobenzaprine. Otherwise patient will need to follow-up with her primary care provider since she has pain is consistent with chronic back pain with right-sided scattered catheter that is not new. And that the ER we are not set up to do chronic and long-term pain management. That she will need to continue with her primary care provider for this. I recommended she keep a close eye on the area if it does start to develop swelling, color change or any other signs of a possible early abscess she needs to follow-up immediately with her primary care provider Departure Impression Primary Impression: Chronic back pain Qualified Codes: M54.41 - Lumbago with sciatica, right side; G89.29 - Other chronic pain Additional Impression: Lumbar radiculopathy Disposition: 01 HOME, SELF-CARE Condition: Stable/Unchanged Departure-Patient Inst. Referrals: KITTY JAMA APRN (PCP) Primary Care Physician ABRAHAM BARFIELD MD (Family) Primary Care Physician Patient Instructions: MANAGING YOUR CHRONIC PAIN, Low Back Pain (DC), Radiculopathy (DC) Add. Discharge Instructions: Emergency department focuses on treating and ruling out life-threatening diseases. Whenever possible, a diagnosis is given. However, most patients are given an impression based on their history, physical exam, and workup during your brief time in the ER. Information about probable diagnosis and other educational material has been provided. Please take the time to read and understand this information. It is very important that you follow up with a physician as discussed during the visit today. Failure to adhere to your follow-up instructions may lead to severe disability, injury, or so please make sure to keep your appointments or obtain one as requested. Please keep in mind the emergency department is not designed to your primary care or "family doctor" and nonurgent issues are best evaluated by an outpatient physician Scripts Ondansetron (Ondansetron Odt) 4 Mg Tab.rapdis 4 MG PO Q6H PRN for NAUSEA/VOMITING, #20 TAB Prov: JUAN KUMAR DO 08/07/19 Cyclobenzaprine HCl (Cyclobenzaprine HCl) 10 Mg Tablet 10 MG PO BID PRN for SPASMS, #15 TAB 0 Refills Prov: JUAN KUMAR DO 08/07/19 JUAN KUMAR DO Aug 07, 2019 13:24
[2019-08-07] MEDS ORDERED: KETOROLAC 60 MG/2 ML VIAL IM STA (13:33)
[2019-08-07] MEDS ORDERED: ONDANSETRON 4 MG (ZOFRAN) ORAL DISSOLVE TAB SL STA (13:33)
[2019-08-07] MEDS ORDERED: ORPHENADRINE 60 MG/2 ML (NORFLEX) AMP IM STA (13:33)
[2019-08-07] MEDS ORDERED: CYCL10TA9 PO (13:47)
[2019-08-07] MEDS ORDERED: ONDA4TAB11 PO (13:47)
[2019-08-07 13:58] VITALS: BP 171/81
== END 2019-08-07 13:59 | disposition home or self-care (01) ==
LOC: EDUNIT# 13:13 → ER FS 13:15
DX: M54.16 Radiculopathy, lumbar region (principal); G89.29 Other chronic pain; J45.909 Unspecified asthma, uncomplicated; F32.9 Major depressive disorder, single episode, unspecified; E03.9 Hypothyroidism, unspecified; Z88.1 Allergy status to other antibiotic agents; Z88.2 Allergy status to sulfonamides; Z88.8 Allergy status to other drugs, medicaments and biological substances; Z87.891 Personal history of nicotine dependence
CPT/HCPCS: 96372; 99284

== ENCOUNTER → 2019-08-08 | Outpatient (CLI) | payer MEDICAID ==
[2019-08-08 16:04] LABS: FREE T4 (FREE THYROXINE) 0.97 NG/DL (0.70-1.48)
== END ==
LOC: LAB FS 08-07 14:08
DX: K59.00 Constipation, unspecified (principal); R10.9 Unspecified abdominal pain
CPT/HCPCS: 36415; 82306; 82607; 82784; 83516; 84439; 84443; 86038

== ENCOUNTER 2019-08-23 16:36 | Emergency (ER) | payer MEDICAID ==
[~2019-08-23 16:36] MED LIST changes: -TRAZ-190 PO; +TRAZ-227 PO
--- NOTE | 2019-08-23 17:04 | ED Chest Pain ---
General Chief Complaint: Chest Pain Stated Complaint: CHEST PAIN,HEADACHE Source: patient Exam Limitations: no limitations History of Present Illness Date Seen by Provider: Aug 23, 2019 Time Seen by Provider: 16:59 Initial Comments Patient presents with right-sided chest pain began about an hour prior to arrival the ER. Patient states that she was just sitting in a recliner and she moved and felt pain in her right upper chest that was sharp. Since then pain is come and gone with complete resolution in between episodes. No significant discomfort with breathing. She does state she's had a cough and congestion for the past week and is living with people who have had upper respiratory infections. Denies fever or chills. Denies history of heart or lung disease. Patient's main concern is she wants to make sure she doesn't have a pneumonia. Allergies and Home Medications Allergies Coded Allergies: tetracycline (Verified Allergy, Severe, N/V, 06/08/19) Sulfa (Sulfonamide Antibiotics) (Verified Allergy, Mild, N/V, 06/08/19) hydroxyzine (Verified Allergy, Mild, "JITTERS", 06/08/19) melatonin (Verified Allergy, Mild, NIGHTMARES, 06/08/19) prochlorperazine (Verified Allergy, Mild, "JITTERS", 06/08/19) Home Medications Albuterol Sulfate 1 Puff Puff, 2 PUFF IH Q4H PRN for SHORTNESS OF BREATH, (Reported) 1 PUFF = 90 MCG Cyclobenzaprine HCl 10 Mg Tablet, 10 MG PO BID PRN for PRN, (Reported) Cyclobenzaprine HCl 10 Mg Tablet, 10 MG PO BID PRN for SPASMS Prescribed by: JUAN KUMAR on 08/07/19 1347 Furosemide 40 Mg Tablet, 40 MG PO DAILY, (Reported) Gabapentin 300 Mg Capsule, 300 MG PO TID, (Reported) Hydrocodone/Acetaminophen 1 Each Tablet, 1 TAB PO Q4H Prescribed by: CARMENCITA FAYE on 06/14/19 1434 Ibuprofen 800 Mg Tablet, 800 MG PO Q8H PRN for PAIN-MILD Prescribed by: ABRIL RODRIGUEZ on 08/23/19 1755 Levothyroxine Sodium 50 Mcg Tablet, 50 MCG PO DAILY, (Reported) Methocarbamol 500 Mg Tablet, 500 MG PO BID PRN for PAIN-MODERATE (5-7), (Reported) Ondansetron 4 Mg Tab.rapdis, 4 MG PO Q6H PRN for NAUSEA/VOMITING Prescribed by: JUAN KUMAR on 08/07/19 5053 Ondansetron HCl 4 Mg Tab, 4 MG PO PRN PRN for NAUSEA/VOMITING, (Reported) Trazodone HCl 150 Mg Tablet, 150 MG PO HS, (Reported) Venlafaxine HCl 75 Mg Tab, 75 MG PO BID, (Reported) Patient Home Medication List Home Medication List Reviewed: Yes Review of Systems Review of Systems Constitutional: see HPI; No diaphoresis, No fever, No malaise, No weakness Respiratory: See HPI, Cough; Denies Orthopnea, Denies Shortness of Air, Denies SOA With Exertion, Denies SOA at Rest, Denies Stridor, Denies Wheezing Cardiovascular: See HPI, Chest Pain; Denies Edema, Denies Irregular Heart Rate, Denies Lightheadedness, Denies Palpitations, Denies Syncope Gastrointestinal: Denies Abdominal Pain, Denies Poor Appetite, Denies Vomiting Musculoskeletal: No back pain, No joint pain Skin: No change in color, No change in hair/nails, No lesions Past Pooijbl-Vkjwqg-Vedjgf Hx Patient Social History Alcohol Use: Denies Use Recreational Drug Use: No Smoking Status: Former Smoker Type Used: Cigarettes Former Smoker, Quit: Jun 15, 1996 2nd Hand Smoke Exposure: No Recent Foreign Travel: No Contact w/Someone Who Travel: No Recent Hopitalizations: No Physical Abuse: No Sexual Abuse: No Mistreated: No Fear: No Immunizations Up To Date Tetanus Booster (TDap): Less than 5yrs PED Vaccines UTD: Yes Date of Pneumonia Vaccine: Apr 18, 2013 Date of Influenza Vaccine: Apr 03, 2019 Seasonal Allergies Seasonal Allergies: No Past Medical History Surgeries: Yes (HERNIA X3) Abdominal, Appendectomy, Gallbladder, Hysterectomy, Tonsillectomy Respiratory: Yes Asthma, Sleep Apnea Currently Using CPAP: No Currently Using BIPAP: No Cardiac: No Chronic Edema/Swelling Neurological: 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 Headaches /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 Sexually Transmitted Disease: No HIV/AIDS: No Genitourinary: No Gastrointestinal: Yes Abdominal Hernia, Chronic Constipation, Chronic Diarrhea Musculoskeletal: Yes (scoliosis, knee pain back pain) Chronic Back Pain Endocrine: Yes (MERLIN'S) Hypothyroidsim HEENT: Yes Loss of Vision: Denies Hearing Impairment: Denies Cancer: No Psychosocial: Yes (TAKES EFFEXOR FOR NIGHTMARES) Depression Integumentary: No Blood Disorders: No Adverse Reaction/Blood Tranf: No (N/A) Physical Exam Vital Signs Vital Signs - First Documented Capillary Refill : Less Than 3 Seconds Height, Weight, BMI Height: 5'7.00" Weight: 320lbs. 0oz. 145.734524ok; 52.00 BMI Method:Stated General Appearance: No Apparent Distress, WD/WN HEENT: Normal ENT Inspection Neck: Normal Inspection, Non Tender, Supple Respiratory: Chest Non Tender, Lungs Clear Cardiovascular: Regular Rate, Rhythm, No Edema, No JVD, Normal Peripheral Pulses Gastrointestinal: Soft; No Guarding, No Rebound Extremity: Normal Capillary Refill, Non Tender, No Calf Tenderness Neurologic/Psychiatric: Alert, Oriented x3, No Motor/Sensory Deficits Progress/Results/Core Measures Results/Orders Lab Results Laboratory Tests Test 08/23/19 16:40 Range/Units White Blood Count 9.7 4.3-11.0 10^3/uL Red Blood Count 4.89 4.35-5.85 10^6/uL Hemoglobin 15.0 11.5-16.0 G/DL Hematocrit 45 35-52 % Mean Corpuscular Volume 91 80-99 FL Mean Corpuscular Hemoglobin 31 25-34 PG Mean Corpuscular Hemoglobin Concent 34 32-36 G/DL Red Cell Distribution Width 13.0 10.0-14.5 % Platelet Count 183 130-400 10^3/uL Mean Platelet Volume 10.8 H 7.4-10.4 FL Neutrophils (%) (Auto) 64 42-75 % Lymphocytes (%) (Auto) 26 12-44 % Monocytes (%) (Auto) 9 0-12 % Eosinophils (%) (Auto) 0 0-10 % Basophils (%) (Auto) 0 0-10 % Neutrophils # (Auto) 6.2 1.8-7.8 X 10^3 Lymphocytes # (Auto) 2.6 1.0-4.0 X 10^3 Monocytes # (Auto) 0.9 0.0-1.0 X 10^3 Eosinophils # (Auto) 0.0 0.0-0.3 10^3/uL Basophils # (Auto) 0.0 0.0-0.1 10^3/uL Sodium Level 143 135-145 MMOL/L Potassium Level 3.7 3.6-5.0 MMOL/L Chloride Level 101 98-107 MMOL/L Carbon Dioxide Level 29 21-32 MMOL/L Anion Gap 13 5-14 MMOL/L Blood Urea Nitrogen 16 7-18 MG/DL Creatinine 0.97 0.60-1.30 MG/DL Estimat Glomerular Filtration Rate > 60 BUN/Creatinine Ratio 16 Glucose Level 98 70-105 MG/DL Calcium Level 9.3 8.5-10.1 MG/DL Corrected Calcium 9.1 8.5-10.1 MG/DL Total Bilirubin 0.3 0.1-1.0 MG/DL Aspartate Amino Transf (AST/SGOT) 44 H 5-34 U/L Alanine Aminotransferase (ALT/SGPT) 86 H 0-55 U/L Alkaline Phosphatase 110 40-136 U/L Troponin I < 0.30 <0.30 NG/ML Total Protein 7.2 6.4-8.2 GM/DL Albumin 4.3 3.2-4.5 GM/DL My Orders Orders - ROVENSTINE,ABRIL L DO Ed Iv/Invasive Line Start (08/23/19 17:04) Cbc With Automated Diff (08/23/19 17:04) Comprehensive Metabolic Panel (08/23/19 17:04) Troponin I Fs (08/23/19 17:04) Chest 1 View Ap/Pa Only (08/23/19 17:04) Ekg Tracing (08/23/19 17:04) Aspirin Chewable Tablet (Baby Aspirin Ch (08/23/19 17:15) Medications Given in ED Vital Signs/I&O 08/23/19 08/23/19 08/23/19 16:36 16:36 18:02 Temp 36.2 36.2 Pulse 73 66 Resp 16 16 B/P (MAP) 163/63 (96) 152/92 (96) Pulse Ox 97 97 O2 Delivery Room Air Room Air Room Air Progress Progress Note : Progress Note Intermittent right sided upper chest pain with no exacerbating factors. Coming and going since 1 hour prior to ER visit. Normal labs and chest x-ray with mild pulmonary vascular congestion. No acute findings. Advise follow-up with PCP if not improving in a few days, ER sooner if worse. Pt also asking about checking her thyroid. I advised to f/u w her PCP regarding mgmt of her thyroid and any routine testing. Initial ECG Impression Date: Aug 23, 2019 Initial ECG Impression Time: 17:03 Initial ECG Rate: 74 Initial ECG Rhythm: Normal Sinus Initial ECG Impression: Normal, Nonspecific Changes Departure Impression Primary Impression: Chest pain Qualified Codes: R07.9 - Chest pain, unspecified Disposition: 01 HOME, SELF-CARE Condition: Stable Departure-Patient Inst. Referrals: KITTY JAMA APRN (PCP) Primary Care Physician ABRAHAM BARFIELD MD (Family) Primary Care Physician Patient Instructions: Chest Pain (DC) Scripts Ibuprofen (Ibuprofen) 800 Mg Tablet 800 MG PO Q8H PRN for PAIN-MILD, #30 TAB Prov: ABRIL RODRIGUEZ DO 08/23/19 ABRIL RODRIGUEZ DO Aug 23, 2019 17:04
[2019-08-23] MEDS ORDERED: ASPIRIN 81 MG CHEW (CHILDREN'S ASA) PO ONE (17:15)
[2019-08-23 17:17] LABS: BASOPHILS % (AUTO) 0 % (0-10); EOSINOPHILS % (AUTO) 0 % (0-10); HEMATOCRIT 45 % (35-52); LYMPHOCYTES # (AUTO) 2.6 X 10^3 (1.0-4.0); LYMPHOCYTES % (AUTO) 26 % (12-44); MEAN CORPUSCULAR HEMOGLOBIN 31 PG (25-34); MEAN CORPUSCULAR HGB CONC 34 G/DL (32-36); MEAN CORPUSCULAR VOLUME 91 FL (80-99); MEAN PLATELET VOLUME 10.8 FL (7.4-10.4); MONOCYTES # (AUTO) 0.9 X 10^3 (0.0-1.0); MONOCYTES % (AUTO) 9 % (0-12); NEUTROPHILS # (AUTO) 6.2 X 10^3 (1.8-7.8); NEUTROPHILS % (AUTO) 64 % (42-75); PLATELET COUNT 183 10^3/uL (130-400); WHITE BLOOD COUNT 9.7 10^3/uL (4.3-11.0)
[2019-08-23 17:32] LABS: ALANINE AMINOTRANSFERASE 86 U/L (0-55); ALBUMIN 4.3 GM/DL (3.2-4.5); ALKALINE PHOSPHATASE 110 U/L (40-136); BILIRUBIN,TOTAL 0.3 MG/DL (0.1-1.0); BUN/CREATININE RATIO 16; CALCIUM 9.3 MG/DL (8.5-10.1); CARBON DIOXIDE 29 MMOL/L (21-32); CHLORIDE 101 MMOL/L (98-107); CREATININE SERUM 0.97 MG/DL (0.60-1.30); GFR ESTIMATED > 60; GLUCOSE 98 MG/DL (70-105); POTASSIUM 3.7 MMOL/L (3.6-5.0); SODIUM 143 MMOL/L (135-145); TOTAL PROTEIN 7.2 GM/DL (6.4-8.2)
--- NOTE | 2019-08-23 17:34 | Diagnostic Imaging Report ---
INDICATION: Cough and chest pain. FINDINGS: There is cardiomegaly. There is mild venous congestion. There is no pleural effusion or pneumothorax. The mediastinum is unremarkable. IMPRESSION: Cardiomegaly and mild central pulmonary venous congestion. Dictated by: Dictated on workstation # [id number]
[2019-08-23] MEDS ORDERED: IBUP-1780 PO (17:55)
[2019-08-23 18:02] VITALS: BP 152/92
== END 2019-08-23 18:02 | disposition home or self-care (01) ==
LOC: EDUNIT# 16:36 → ER FS 16:37
DX: R07.9 Chest pain, unspecified (principal); J45.909 Unspecified asthma, uncomplicated; E03.9 Hypothyroidism, unspecified; F32.9 Major depressive disorder, single episode, unspecified; Z88.1 Allergy status to other antibiotic agents; Z88.2 Allergy status to sulfonamides; Z88.8 Allergy status to other drugs, medicaments and biological substances
CPT/HCPCS: 36415; 71045; 80053; 84484; 85025; 93005

== ENCOUNTER 2019-10-21 11:06 | Emergency (ER) | payer MEDICAID ==
[~2019-10-21] VITALS: Ht 170 cm; Wt 155.0 kg
[~2019-10-21 11:06] MED LIST changes: +ACHD5005 PO; +HYDR-34 PO; -HYDR-3812 PO; -HYDR-3816 PO; +IBUP-1780 PO
--- NOTE | 2019-10-21 11:49 | ED Back Pain ---
General Chief Complaint: Back Problems Stated Complaint: BACK PAIN Nursing Triage Note: REPORTS HER CHRNOIC BACK PAIN IS HURTING X 2 DAYS. Nursing Sepsis Screen: No Definite Risk Source of Information: Patient Exam Limitations: No Limitations History of Present Illness Date Seen by Provider: Oct 21, 2019 Time Seen by Provider: 11:40 Initial Comments Patient is a morbidly obese female who presents with exacerbation of her chronic back pain states of 3 days that she's been able to get up or care for herself but she denies incontinence of bowel or bladder. She arrived by private vehicle and was able to ambulate into the department although she states she is unable to move her legs. I find no evidence of fever immunosuppression steroids chemotherapy cancer IV drug use or abdominal pain is no different from her baseline abdominal pain no syncope no other red flags for back pain Location: Lumbar Spine Timing/Duration: Constant Pain/Injury Location: Other (no injury) Radiation: Buttocks, Feet, Lower Legs, Upper Legs Modifying Factors: Improves With Movement Associated Symptoms: No fever; weakness, numbness in legs/feet, tingling in legs/feet, sensory/motor loss, lower back pain; No loss of bladder control, No loss of bowel control Allergies and Home Medications Allergies Coded Allergies: tetracycline (Verified Allergy, Severe, N/V, 06/08/19) Sulfa (Sulfonamide Antibiotics) (Verified Allergy, Mild, N/V, 06/08/19) hydroxyzine (Verified Allergy, Mild, "JITTERS", 06/08/19) melatonin (Verified Allergy, Mild, NIGHTMARES, 06/08/19) prochlorperazine (Verified Allergy, Mild, "JITTERS", 06/08/19) Home Medications Albuterol Sulfate 1 Puff Puff, 2 PUFF IH Q4H PRN for SHORTNESS OF BREATH, (Rep orted) 1 PUFF = 90 MCG Cyclobenzaprine HCl 10 Mg Tablet, 10 MG PO BID PRN for PRN, (Reported) Cyclobenzaprine HCl 10 Mg Tablet, 10 MG PO BID PRN for SPASMS Prescribed by: JUAN KUMAR on 08/07/19 1347 Diclofenac Sodium 100 Gm Gel..gram., 100 GM TP Q6H PRN for PAIN-SEVERE (8-10) Prescribed by: SUMMER RICH on 10/21/19 1159 Furosemide 40 Mg Tablet, 40 MG PO DAILY, (Reported) Gabapentin 300 Mg Capsule, 300 MG PO TID, (Reported) Hydrocodone Bit/Acetaminophen 1 Each Tablet, 1 TAB PO Q4H Prescribed by: CARMENCITA FAYE on 06/14/19 1434 Ibuprofen 800 Mg Tablet, 800 MG PO Q8H PRN for PAIN-MILD Prescribed by: ABRIL RODRIGUEZ on 08/23/19 1755 Levothyroxine Sodium 50 Mcg Tablet, 50 MCG PO DAILY, (Reported) Methocarbamol 500 Mg Tablet, 500 MG PO BID PRN for PAIN-MODERATE (5-7), (Reported) Methylprednisolone 4 Mg Tab.ds.pk, 4 MG PO UD PER DOSE PACK INSTRUCTIONS Prescribed by: SUMMER RICH on 10/21/19 1159 Ondansetron 4 Mg Tab.rapdis, 4 MG PO Q6H PRN for NAUSEA/VOMITING Prescribed by: JUAN KUMAR on 08/07/19 1347 Ondansetron HCl 4 Mg Tab, 4 MG PO PRN PRN for NAUSEA/VOMITING, (Reported) Trazodone HCl 150 Mg Tablet, 150 MG PO HS, (Reported) Venlafaxine HCl 75 Mg Tab, 75 MG PO BID, (Reported) Patient Home Medication List Home Medication List Reviewed: Yes Review of Systems Constitutional: no symptoms reported EENTM: see HPI Respiratory: no symptoms reported Cardiovascular: no symptoms reported Gastrointestinal: abdominal pain (patient states she has chronic abdominal pains had multiple surgeries including mesh repair from hernias) Genitourinary: no symptoms reported, other (patient does admit that she has some intermittent stress incontinence) : No Musculoskeletal: see HPI Skin: no symptoms reported Psychiatric/Neurological: No Symptoms Reported Past Znjmaga-Gockjb-Ceskmw Hx Patient Social History Alcohol Use: Denies Use Recreational Drug Use: No Smoking Status: Former Smoker Type Used: Cigarettes Former Smoker, Quit: Jun 15, 1996 2nd Hand Smoke Exposure: No Recent Foreign Travel: No Contact w/Someone Who Travel: No Recent Infectious Disease Expo: No Recent Hopitalizations: No Physical Abuse: No Sexual Abuse: No Mistreated: No Fear: No Immunizations Up To Date Tetanus Booster (TDap): Less than 5yrs PED Vaccines UTD: Yes Date of Pneumonia Vaccine: Apr 18, 2013 Date of Influenza Vaccine: Apr 03, 2019 Seasonal Allergies Seasonal Allergies: No Past Medical History Surgeries: Yes (HERNIA X3) Abdominal, Appendectomy, Gallbladder, Hysterectomy, Tonsillectomy Respiratory: Yes Asthma, Sleep Apnea Currently Using CPAP: No Currently Using BIPAP: No Cardiac: No Chronic Edema/Swelling Neurological: Yes Headaches /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 Sexually Transmitted Disease: No HIV/AIDS: No Genitourinary: No Gastrointestinal: Yes Abdominal Hernia, Chronic Constipation, Chronic Diarrhea Musculoskeletal: Yes (scoliosis, knee pain back pain) Chronic Back Pain Endocrine: Yes (MERLIN'S) Hypothyroidsim HEENT: Yes Loss of Vision: Denies Hearing Impairment: Denies Cancer: No Psychosocial: Yes (TAKES EFFEXOR FOR NIGHTMARES) Depression Integumentary: No Blood Disorders: No Adverse Reaction/Blood Tranf: No (N/A) Physical Exam Vital Signs Vital Signs - First Documented 10/21/19 11:18 Temp 36.2 Pulse 67 Resp 18 B/P (MAP) 152/85 (107) Pulse Ox 96 O2 Delivery Room Air Capillary Refill : Less Than 3 Seconds Height, Weight, BMI Height: 5'7.00" Weight: 320lbs. 0oz. 145.810370th; 53.00 BMI Method:Stated General Appearance: No Apparent Distress, WD/WN, Obese HEENT: PERRL/EOMI, Moist Mucous Membranes Neck: Full Range of Motion, Supple Cardiovascular: Regular Rate, Rhythm, No Edema Respiratory: Chest Non Tender, Lungs Clear, Normal Breath Sounds Gastrointestinal: Normal Bowel Sounds, Distended; No Mass, No Rebound; Tenderness (diffusely tender in all quadrants without evidence of surgical rebound) Back: Normal Inspection, Other (diffuse tenderness from the flanks at the level of T12-L1 all the way to the sacral base into the buttocksspecific point tenderness there is no deformity no rash) Extremity: Normal Capillary Refill, Normal Inspection, No Calf Tenderness, Other (patient is able to extend both legs fully to about 50 with symmetric strength of the ankle) Neurologic/Psychiatric: Alert, Oriented x3, No Motor/Sensory Deficits, Other (Achilles and patellar reflexes were symmetric bilaterally) Skin: Normal Color, Warm/Dry Progress/Results/Core Measures Results/Orders Vital Signs/I&O 10/21/19 10/21/19 11:18 12:02 Temp 36.2 36.2 Pulse 67 67 Resp 18 18 B/P (MAP) 152/85 (107) 152/85 (107) Pulse Ox 96 96 O2 Delivery Room Air Blood Pressure Mean: 107 Progress Progress Note : Time: 11:54 Progress Note Patient presents with 3 days of back pain which she Sailes been totally disabling yet she does admit that she was able to ambulate into the department from outside. Physical exam was unremarkable status history showed no significant red flags of acute back pain. The patient has had multiple visits for pain medication to emergency department she's had a recent MRI done less than one year ago which was essentially normal. I suspect the plan will be topical Voltaren gel as well as a Medrol Dosepak and primary care follow-up Wednesday or Wednesday Departure Impression Primary Impression: Chronic back pain Disposition: HOME, SELF-CARE Condition: Unchanged Departure-Patient Inst. Referrals: [facility]/ANDREW (PCP) Primary Care Physician Wednesday KITTY JAMA APRN (Family) Primary Care Physician Wednesday Patient Instructions: MANAGING YOUR CHRONIC PAIN, Low Back Pain (DC) Scripts Methylprednisolone (Methylprednisolone Dose Pack) 4 Mg Tab.ds.pk 4 MG PO UD for 6 Days, #21 PKG PER DOSE PACK INSTRUCTIONS Prov: SUMMER RICH DO 10/21/19 Diclofenac Sodium (Diclofenac Sodium) 100 Gm Gel..gram. 100 GM TP Q6H PRN for PAIN-SEVERE (8-10) for 7 Days, #1 TUBE 1 Refill Prov: SUMMER RICH DO 10/21/19 SUMMER RICH DO Oct 21, 2019 11:49
[2019-10-21] MEDS ORDERED: DICL100G27 TP (11:59)
[2019-10-21] MEDS ORDERED: METH4TAB10 PO (11:59)
[2019-10-21 12:02] VITALS: BP 152/85
== END 2019-10-21 12:03 | disposition home or self-care (01) ==
LOC: EDUNIT# 11:06 → ER FS 11:08
DX: M54.5 Low back pain (principal); G89.29 Other chronic pain; J45.909 Unspecified asthma, uncomplicated; G43.909 Migraine, unspecified, not intractable, without status migrainosus; E03.9 Hypothyroidism, unspecified; F32.9 Major depressive disorder, single episode, unspecified; Z87.891 Personal history of nicotine dependence; Z88.1 Allergy status to other antibiotic agents; Z88.2 Allergy status to sulfonamides; Z88.8 Allergy status to other drugs, medicaments and biological substances
CPT/HCPCS: 99281

== ENCOUNTER 2020-01-07 10:36 | Emergency (ER) | payer MEDICAID ==
[~2020-01-07 10:36] MED LIST changes: +DICL100G27 TP; +METH4TAB10 PO
--- OUTSIDE RECORDS SUMMARY | 2020-01-07 10:43 | XMS REPORT | Clinical Summary ---
Author Author [facility] Organization 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 If you d o not see the information that you expected, contact Release of Information in [facility] [employer] Information Management department at [phone] for further assistan ce in locating additional records.[facility] Allergies Comments Active Allergy Reactions Severity Noted Date Celecoxib HEADACHE Low 01/05/2019 Agitation, "crawling out of my skin" Prochlorperazine ANXIETY Medium 12/01/2016 Edisylate Hydroxychloroquine ANXIETY Low 01/04/2017 Sulfa (Sulfonamide NAUSEA AND Low 11/29/2016 Antibiotics) VOMITING Tetracycline UNKNOWN Low 11/29/2016 Medications End Date Status Medication Sig Dispensed Refills Start Date Active venlafaxine (EFFEXOR) 75 Take 75 mg [...] by mouth at bedtime as needed. Active pantoprazole DR Take 1 Tab by 30 Tab 1 12/03/19 1 (PROTONIX) 40 mg tablet mouth daily. 7 Active ondansetron (ZOFRAN ODT) Dissolve 1 6 Tab 0 0 4 mg rapid dissolve Tab by mouth 7 tablet every 8 hours as needed for Nausea or Vomiting. Place on tongue to disolve. Active traMADol (ULTRAM) 50 mg Take 1-2 Tabs 30 Tab 0 tablet by mouth 7 every 6 hours as needed. Additional Information Patient not taking. Reported on 03/30/2019 8:15 AM Active oxyCODONE (ROXICODONE, Take 1 tablet 10 tablet 0 0 OXY-IR) 5 mg tablet by mouth 8 every 4 hours as needed for Pain Additional Information Patient not taking. Reported on 03/30/2019 8:15 AM Active levothyroxine sodium Take by 0 (LEVOTHYROXINE PO) mouth. Active gabapentin (NEURONTIN) Take 300 mg 0 300 mg capsule by mouth every 8 hours. Active Problems Problem Noted Date Abdominal wall seroma 01/15/2019 Urinary hesitancy 01/05/2017 Ventral incisional hernia without obstruction or gang robyn 01/05/2017 Dysuria 01/05/2017 Gastroenteritis 12/23/2016 Chest pain [...] Signs Reading Time Taken Comments Vital Sign 141/79 03/30/2019 8:13 AM CDT Blood Pressure 66 03/30/2019 8:13 AM CDT Pulse 36.6 C (97.9 F) 03/30/2019 8:13 AM CDT Temperature 16 03/30/2019 8:13 AM CDT Respiratory Rate 98% 03/30/2019 8:13 AM CDT Oxygen Saturation - - Inhaled Oxygen Concentration 151.1 kg (333 lb 3.2 oz) 03/30/2019 8:13 AM CDT Weight 170.2 cm (5' 7") 03/30/2019 8:13 AM CDT Height 52.19 03/30/2019 8:13 AM CDT Body Mass Index Plan of Treatment Health Maintenance Due Date Last Done Comments HIV SCREENING 1984 DTAP/TDAP VACCINES (1 - 1987 Tdap) HEPATITIS C SCREENING 1987 PHYSICAL (COMPREHENSIVE) 1987 EXAM CERVICAL CANCER SCREENING 1990 BREAST CANCER SCREENING 2009 COLORECTAL CANCER 2019 SCREENING SHINGLES RECOMBINANT 2019 VACCINE (1 of 2) INFLUENZA VACCINE 03/28/2020 Results Not on filefrom Last 3 Months Insurance Type Payer Benefit Subscriber ID Effective Phone Address Plan / Dates Group Medicaid UHC [place]ICAID [place] xxxxxxxxxxx [phone] Advance 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 12/02/2016 2:44 PM Full Code 11/29/2016 5:17 AM Provider has discussed Code Status Yes w/Patient or Family?
--- OUTSIDE RECORDS SUMMARY | 2020-01-07 10:47 | XMS REPORT ---
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 Name Role Phone Migration, Doctor Unavailable Unavailable PROBLEMS Type Condition ICD9-CM Code YAT55-RL Code Onset Dates Condition S tatus SNOMED Code Problem Anxiety F41.9 Active 08558732 Problem Positive urine drug screen R82.5 Act natalie 290140028 Problem Allergic rhinitis, unspecified allergic rhinitis type J30.9 Active 56884600 Problem Benign essential hypertension I10 Active 4712524 Problem Degenerative disc disease, lumbar M51.36 Active 68081597 Problem Primary osteoarthritis of left knee M17.12 Active 258651212818784 Problem Renal insufficiency N28.9 Active 126311641 Problem Moderate episode of recurrent major depressive disorder F33.1 Active 92692857 Problem Difficulty concentrating R41.840 Activ e 34804580 Problem Chronic pain syndrome G89.4 Active 299781675 Problem Fatigue, unspecified type R53.83 Acti ve 21214087 Problem ADHD, predominantly inattentive type F90.0 Active 79963868 Problem Irregular heart rhythm I49.9 Active 879487938 Problem Other chronic pain G89.29 Active 8 2151724 Problem Arthritis, multiple joint involvement M12.9 Active 45150789216809 Problem Uncomplicated asthma, unspec ified asthma severity, unspecified whether persistent J45.909 Active 00436229 Problem Major depression F32.9 Active 370 831504 Problem Obstructive sleep apnea syndrome G47.33 Active 87631209 Problem Postablative hypothyroidism E89.0 Ac tive 519181067 Problem Obstructive sleep apnea syndrome G47.33 Active 79327458 Problem Other hyperlipidemia E78.49 Active 98378032 Problem Lumbar degenerative disc disease M51.36 Active 97362575 Problem Insomnia G47.00 Active 133403916 Problem Chondromalacia patellae, right knee M22.41 Active [id number] Problem Chondromalacia patellae of left knee M22.42 Active 489491562776196 Problem Allergic rhinitis, unspecified seasonality, unspecifie d trigger J30.9 Active 81829528 ALLERGIES No Information ENCOUNTERS Encounter Location Date Diagnosis [facility] [address] [id number] [place] [address] Sep, [facility] [address] [id number] [place] [address] Aug, [facility] [address] 340[address] [id number], [place] [address] Aug, [facility] [place] [address] 340[address] [id number], [place] [address] Aug, Migraine headache G43.909 ; Postablative hypothyroidism E89.0 ; Fatigue, unspecified type R53.83 and Lumbar degenerative disc disease M51.36 [facility] [address] 340[address] [id number] [place] [address] Aug, [facility] [place] [address] 340[address] [id number], [place] [address] Jun, [facility] [address] [facility] [id number] 100[place] [address] Jun, [facility] [address] 340[address] [id number], [place] [address] Jun, [facility] [address] [id number] [place] [address] Jun, [facility] [address] [id number], [place] [address] Jun, [facility] [place] [address] [id number], [place] [address] May, [facility] [address] 340[address] [id number], [place] [address] Apr, [facility] [address] [id number], [place] [address] Apr, [facility] [address] 340[address] [id number], [place] [address] Apr, [facility] [address] 340[address] [id number] [place] [address] Mar, [facility] [address] 340[address] [id number] [place] [address] Mar, Possible urinary tract infec tion R39.89 [facility] [address] 340B [id number] [place] [address] Mar, Generalized abdominal pain R 10.84 [facility] [address] 340[address] [id number] [place] [address] Mar, [facility] [address] 340[address] [id number] [place] [address] Mar, Generalized abdominal pain R 10.84 [facility] [address] 340B [id number] [place] [address] Mar, [facility] [place] [address] 340B [id number] [place] [address] Mar, Generalized abdominal pain R 10.84 [facility] [address] 340[address] [id number] [place] [address] Mar, Nausea R11.0 and Pain of upp er abdomen R10.10 [facility] [address] 340[address] [id number] [place] [address] Mar, [facility] [address] [facility] [id number] [address] [place] [address] Mar, [facility] [address] 340B [id number] [place] [address] Feb, Moderate episode of recurren t major depressive disorder F33.1 [facility] [address] [facility] [id number] [address] [place] [address] Feb, [facility] [place] [address] 340B [id number] [place] [address] Feb, Moderate episode of recurren t major depressive disorder F33.1 ; Obstructive sleep apnea syndrome G47.33 ; Encounter for immunization Z23 ; Postablative hypothyroidism E89.0 and Preoperative examination Z01.818 [facility] [address] 340[address] [id number] [place] [address] Feb, [facility] [address] 340[address] [id number] [place] [address] Feb, [facility] [address] 340[address] [id number] [place] [address] Feb, [facility] [place] [address] 340[address] [id number], [place] [address] Jan, [facility] [address] 340[address] [id number] [place] [address] Jan, [facility] [address] 340[address] [id number], [place] [address] Jan, Seroma of digestive system a fter digestive system procedure K91.872 [facility] [place] [address] 340[address] [id number], [place] [address] Jan, [facility] [place] [address] 340[place] [id number], [place] [address] Jan, Fatigue, unspecified type R5 3.83 ; Hot flashes R23.2 ; Pain of left calf M79.662 and Abdominal wall seroma, sequela S30.1XXS [facility] [address] [facility] [id number] [address] [address] Jan, [facility] [address] [id number] [place] [address] Jan, Muscle strain T14.8XXA ; Shireen lgia M79.10 and Morbid obesity E66.01 [facility] [address] 340[place] [id number], [place] [address] Jan, Allergic rhinitis, unspecifi ed seasonality, unspecified trigger J30.9 [facility] [address] 340[place] [id number], [place] [address] Jan, Postablative hypothyroidism E89.0 ; Fatigue, unspecified type R53.83 ; Morbid obesity E66.01 ; Breast cancer screening Z12.39 and Allergic rhinitis, unspecified seasonality, unspecified trigger J30.9 [facility] [address] [facility] [id number] [place] [address] Jan, Chondromalacia patellae of l eft knee M22.42 and Chondromalacia patellae, right knee M22.41 [facility] [place] [address] 340B [id number] [place] [address] Dec, [facility] [place] [address] 340B [id number] [place] [address] Dec, [facility] [place] [address] 340B [id number] [place] [address] Nov, [facility] [place] [address] 340B [id number], [place] [address] Nov, Lower abdominal pain R10.30 ; Other specified postprocedural states Z98.890 ; Personal history of other diseases of the digestive system Z87.19 and Morbid obesity E66.01 [place] [address] [facility] [id number] [address] [place] [address] October, [facility] [place] [address] 340B [id number] [place] [address] October, [facility] [place] [address] 340B [id number], [place] [address] October, Chronic pain syndrome G89.4 [facility] [place] [address] 340B [id number] [place] [address] October, [facility] [place] [address] 340[address] [id number], [place] [address] October, [facility] [place] [address] 340B [id number] [place] [address] October, Right lower quadrant abdomin al pain R10.31 [place] [address] [facility] [id number] [address] [place] [address] October, [facility] [address] 340[address] [id number] [place] [address] October, [facility] [address] 340[address] [id number] [place] [address] October, [facility] [address] 340B [id number] [place] [address] Sep, [facility] [address] 340B [id number] [place] [address] Sep, Chronic pain syndrome G89.4 [facility] N[place] [address] 340B [id number], [place] [address] Sep, Chronic pain syndrome G89.4 [facility] N[place] [address] 340B [id number], [place] [address] Sep, Witnessed apneic spells R06. 81 ; Loud snoring R06.83 ; Chronic fatigue R53.82 and Chronic pain syndrome G89.4 [facility] [address] [facility] [id number] [address] [place] [address] Sep, [facility] [address] [id number] [place] [address] Sep, Acute nonintractable headach e, unspecified headache type R51 and Morbid obesity E66.01 [facility] N[place] [address] 340[place] [id number], [place] [address] Sep, Morbid obesity E66.01 ; Bila teral leg edema R60.0 ; Pain of left leg M79.605 ; Pain in right leg M79.604 ; Generalized abdominal pain R10.84 and Lumbar back pain M54.5 [facility] [address] [facility] [id number] [address] [place] [address] Sep, Acute pain of left knee M25. 562 and Primary osteoarthritis of left knee M17.12 [facility] [place] [address] 340B [id number] [place] [address] Aug, [facility] [place] [address] 340B [id number] [place] [address] Aug, [facility] [place] [address] 340B [id number] [place] [address] Aug, [facility] [address] 340[address] [id number] [place] [address] Aug, Arthritis, multiple joint in volvement M12.9 ; Abdominal wall seroma, subsequent encounter S30.1XXD ; Degenerative disc disease, lumbar M51.36 and Chronic pain syndrome G89.4 [facility] [place] [address] 340B [id number], [place] [address] Aug, Morbid obesity E66.01 and Ab dominal wall pain R10.9 [facility] [place] [address] 340B [id number], [place] [address] Aug, Abdominal wall pain R10.9 ; Abdominal wall seroma, initial encounter S30.1XXA and Leg edema R60.0 [facility] [address] [facility] [id number] [address] [place] [address] Jul, Acute pain of left knee M25. 562 [facility] [address] [facility] [id number] [address] [place] [address] Jul, [facility] [place] [address] 340B [id number], [place] [address] Jul, Bilateral lower extremity ed ginette R60.0 ; Pain of left leg M79.605 ; Pain in right leg M79.604 ; BMI 45.0-49.9, adult Z68.42 and Morbid obesity E66.01 [facility] [place] [facility] [address] [id number] [place] [address] Jul, BMI 50.0-59.9, adult Z68.43 ; Swelling of lower extremity M79.89 and Irregular heart rhythm I49.9 [facility] [address] [facility] [id number] [address] [place] [address] Jun, [facility] [address] [facility] [id number] [address] [place] [address] Jun, [facility] [address] [facility] [id number] [address] [place] [address] Jun, [facility] [address] [facility] [id number] [address] [place] [address] Jun, Primary insomnia F51.01 [facility] [address] [facility] [id number] [address] [place] [address] Jun, [facility] [address] [place] [id number] [place] [address] Jun, BMI 45.0-49.9, adult Z68.42 ; Acquired hypothyroidism E03.9 ; Fatigue, unspecified type R53.83 ; Palpitations R00.2 ; Right lower quadrant abdominal pain R10.31 and Morbid obesity E66.01 [facility] [address] [facility] [id number] [address] [place] [address] May, [facility] [address] [place] [id number] [place] [address] May, Acquired hypothyroidism E03. 9 [facility] [address] [place] [id number] [address] [place] [address] May, [facility] [address] [facility] [id number] [address] [place] [address] Apr, Acquired hypothyroidism E03. 9 [facility] [address] [facility] [id number] [address] [place] [address] Mar, Acquired hypothyroidism E03. 9 ; Skin tag L91.8 and BMI 45.0-49.9, adult Z68.42 [facility] [address] [facility] [id number] [address] [place] [address] Dec, [facility] [address] [place] [id number] [address] [place] [address] Nov, Edema, unspecified type R60. 9 [facility] [address] [facility] [id number] [address] [place] [address] Nov, Postablative hypothyroidism E89.0 [facility] [address] [place] [id number] [address] [place] [address] Nov, [facility] [address] [address] Nov, Generalized abdominal pain R 10.84 ; History of abdominal hernia Z87.19 ; Pain of left calf M79.662 and BMI 45.0-49.9, adult Z68.42 [facility] [address] [address] Sep, [facility] [address] [place] [id number] [address] [place] [address] Sep, [facility] [address] [address] Sep, Postablative hypothyroidism E89.0 ; Pain in left knee M25.562 ; Edema, unspecified type R60.9 ; Multiple joint pain M25.50 and BMI 45.0-49.9, adult Z68.42 [facility] [address] [place] [address] Aug, [facility] [address] [place], [place] [address] [place] [address] 12 Jul, 2017 History of swelling of feet Z87.39 [facility] [address] [place] [address] 05 Jul, 2017 [facility] [address] [place] [id number] [address] [place] [address] Jul, Pain in left knee M25.562 ; Other chronic pain G89.29 and BMI 45.0-49.9, adult Z68.42 [facility] [address] [place] [address] Jun, [facility] [address] [place] [id number] [address] [place] [address] Jun, [facility] [address] [place] [id number] [address] [place] [address] May, Primary insomnia F51.01 [facility] [address] [place] [id number] [place] [address] Apr, [facility] [address] [place] [id number] [place] [address] Apr, [place] [address] [address] Apr, Acute pain of left knee M25. 562 ; Renal insufficiency N28.9 ; Fatigue, unspecified type R53.83 ; Postablative hypothyroidism E89.0 and BMI 40.0-44.9, adult Z68.41 [place] [address] [place] [address] Mar, Acute pain of left knee M25. 562 [place] [address] [place] [id number] [address] [place] [address] 28 Feb, 2017 Renal insufficiency N28.9 [facility] [address] [place] [id number] [address] [place] [address] Feb, [facility] [address] [place] [id number] [address] [place] [address] Feb, [facility] [address] [place] [id number] [address] [place] [address] Feb, [place] [address] [address] Feb, Renal insufficiency N28.9 ; ADHD, predominantly inattentive type F90.0 ; Postablative hypothyroidism E89.0 ; Primary insomnia F51.01 ; Difficulty concentrating R41.840 ; History of swelling of feet Z87.39 ; Chronic pain syndrome G89.4 and Moderate episode of recurrent major depressive disorder F33.1 [facility] [address] [facility] [id number] [address] [place] [address] Feb, [facility] [address] [facility] [id number] [address] [place] [address] Feb, [facility] [address] [facility] [id number] [address] [place] [address] Jan, ADHD, predominantly inattent natalie type F90.0 [facility] [address] [facility] [id number] [address] [place] [address] Jan, Renal insufficiency N28.9 ; Postablative hypothyroidism E89.0 and History of swelling of feet Z87.39 [facility] [address] [place] [id number] [address] [place] [address] Jan, Chronic pain syndrome G89.4 [place] [address] [place] [address] Jan, [place] [address] [place] [id number] [address] [place] [address] Jan, Renal insufficiency N28.9 ; Primary insomnia F51.01 ; Difficulty concentrating R41.840 ; Postablative hypothyroidism E89.0 ; History of swelling of feet Z87.39 ; Chronic pain syndrome G89.4 and Moderate episode of recurrent major depressive disorder F33.1 [facility] [address] [place] [address] Jan, [facility] [address] [facility] [id number] [address] [place] [address] Jan, Candidal dermatitis B37.2 [facility] [address] [facility] [id number] [address] [place] [address] Dec, [facility] [address] [id number] [place] [address] Dec, [facility] [address] [place] [id number] [address] [place] [address] Dec, [facility] [address] [place] [id number] [address] [place] [address] Dec, Stool color black K92.1 [facility] [address] [place] [id number] [address] [place] [address] 05 Dec, 2016 Diarrhea of presumed infecti ous origin A09 [facility] [address] [place] [id number] [address] [place] [address] Dec, Right lower quadrant abdomin al pain R10.31 and Stool color black K92.1 [facility] [address] [address] Nov, [facility] [address] [place] [id number] [place] [address] 14 Nov, 2016 Visit for TB skin test Z11.1 and Pre-employment examination Z02.1 [facility] [address] [place] [id number] [address] [place] [address] 03 Nov, 2016 [facility] [address] [id number] [place] [address] October, [facility] [address] [id number] [place] [address] October, [facility] [address] [id number] [place] [address] Aug, [facility] [address] [id number] [place] [address] Aug, Other fatigue R53.83 ; BMI 4 5.0-49.9, adult Z68.42 ; Edema, unspecified type R60.9 ; Benign essential hypertension I10 and Lumbar degenerative disc disease M51.36 [facility] [address] [id number] [address] [place] [address] Aug, Skin tag L91.8 [facility] [address] [address] 06 Aug, 2016 Abnormal laboratory test res ult R89.9 [facility] [address] [address] 20 Jul, 2016 Insomnia, unspecified type G 47.00 [facility] [address] [address] Jul, Benign essential hypertensio n I10 ; BMI 45.0-49.9, adult Z68.42 ; Lumbar degenerative disc disease M51.36 ; Edema, unspecified type R60.9 ; Other fatigue R53.83 and Hypothyroidism, unspecified type E03.9 [facility] [address] [address] 07 Jul, 2016 [facility] [address] [address] Jul, Benign essential hypertensio n I10 ; BMI 45.0-49.9, adult Z68.42 ; Lumbar degenerative disc disease M51.36 ; Edema, unspecified type R60.9 ; Other fatigue R53.83 and Hypothyroidism, unspecified type E03.9 [facility] [address] [address] Jun, [facility] [address] [address] Jun, [facility] [address] [address] Jun, Benign essential hypertensio n I10 ; Hypothyroidism, unspecified type E03.9 ; Other fatigue R53.83 ; Midline low back pain without sciatica, unspecified chronicity M54.5 and BMI 45.0-49.9, adult Z68.42 [facility] [address] [facility] [id number] [place] [id number] Jun, Postablative hypothyroidism E89.0 ; Rhin opharyngitis J00 and Encounter for immunization Z23 [facility] [address] [id number] [place] [id number] Jun, [facility] [address] [id number] [place] [id number] May, [facility] [address] [place], [place] [id number] [place] [address] May, [facility] [address] [id number] [place] [id number] May, [facility] [address] [id number] [place] [id number] Apr, Hypothyroidism, unspecified type E03.9 [facility] [address] [id number] [place] [id number] Apr, Hypothyroidism, unspecified type E03.9 [facility] [address] [facility] [id number] [place] [id number] Apr, [facility] [address] [id number] [place] [id number] Mar, Hypothyroidism, unspecified type E03.9 ; Moderate single current episode of major depressive disorder F32.1 ; Other hyperlipidemia E78.49 and Elevated liver function tests R79.89 [facility] [address] [facility] [id number] [facility] [id number] Feb, [facility] [address] [facility] [id number] [place] [id number] Dec, Moderate single current episode of major depressive disorder F32.1 [facility] [address] [id number] [place] [id number] Nov, [facility] [address] [id number] [place] [id number] Nov, [facility] [address] [id number] [place] [id number] Nov, Hypothyroidism, unspecified type E03.9 ; Other hyperlipidemia E78.49 and Elevated liver function tests R79.89 [facility] [address] [facility] [id number] [place] [id number] Nov, 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 ; Hyp othyroidism, unspecified type E03.9 ; Benign essential hypertension I10 and Uncomplicated asthma, unspecified asthma severity J45.909 [facility] [address] [facility] [id number] [place] [id number] Nov, 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 ; Hyp othyroidism, unspecified type E03.9 ; Benign essential hypertension I10 and Uncomplicated asthma, unspecified asthma severity J45.909 [facility] [address] [facility] [id number] [place] [id number] October, [facility] [address] [facility] [id number] [place] [id number] October, [address] [facility] [id number] [place] [id number] October, Abnormal laboratory test result R89.9 [facility] [address] [facility] [id number] [place] [id number] October, Status post bilateral oophorectomy Z90.7 22 [facility] [address] [facility] [id number] [place] [id number] Sep, [address] [facility] [id number] [place] [id number] Aug, [facility] [address] [facility] [id number] [place] [id number] Aug, Complex ovarian cyst N83.20 [facility] [address] [place] [id number] Aug, Other acute sinusitis, recurrence not sp ecified J01.80 [id number] [place] [id number] Aug, [facility] [address] [place] [id number] Jun, [id number] [place] [id number] Jun, [id number] [place] [id number] May, Allergic rhinitis, unspecified allergic rhinitis type J30.9 [id number] [place] [id number] May, [address] [place] [id number] Mar, [id number] [place] [id number] Mar, [id number] [place] [id number] Jan, Hypothyroidism 244.9 and Cyst in hand 72 7.43 [address] [place] [id number] Jan, [id number] [place] [id number] Dec, [address] [place] [id number] Dec, Acute sinusitis 461.9 and Cough 786.[id number] [place] , [place] [id number] Dec, Insect bite 919.4 [id number] [place] [id number] Nov, [facility] [address] [id number] [place] [id number] Nov, [facility] [address] [id number] [place] [id number] Sep, Obesity, morbid 278.01 ; Sleep apnea, ob structive 327.23 and Fatigue due to sleep pattern disturbance 780.79 [facility] [address] [id number] [place] [id number] Sep, [facility] [address] [id number] [place] [id number] Sep, [facility] [address] [id number] [place] [id number] Aug, [facility] [address] [id number] [address] [place] [phone] Aug, [facility] [address] [id number] [place] [id number] Jul, [facility] [address] [id number] [address] [place] [id number] Jul, [facility] [address] [id number] [place] [phone] Jul, [facility] [address] [id number] [place] [id number] Jul, [facility] [address] [id number] [place] [id number] Jun, [facility] [address] [id number] [address] [place] [phone] Jun, [facility] [address] [id number] [place] [id number] May, [facility] [address] [facility] [id number] [address] [place] [id number] May, [facility] [address] [facility] [id number] [address] [place] [phone] Mar, [facility] [address] [facility] [id number] [address] [place] [id number] Mar, [facility] [address] [facility] [id number] [address] [place] [id number] Mar, [address] [id number] [id number] Mar, [facility] [address] [facility] [id number] [address] [place] [id number] Mar, [facility] [address] [facility] [id number] [address] [place] [id number] Mar, [facility] [address] [facility] [id number] [address] [place] [id number] Mar, [facility] [id number] [place] [id number] Mar, [facility] [address] [facility] [id number] [address] [place] [id number] Mar, [facility] [address] [id number] [id number] Mar, [facility] [address] [facility] [id number] [address] [place] [phone] Mar, IMMUNIZATIONS No Known Immunizations SOCIAL HISTORY Never Assessed REASON FOR VISIT PLAN OF CARE VITAL SIGNS MEDICATIONS Unknown Medications RESULTS No Results PROCEDURES Procedure Date Ordered Result Body Site COMPLETE CBC W/AUTO DIFF WBC Apr 06, 2014 VENIPUNCT, ROUTINE* Apr 06, 2014 INSTRUCTIONS MEDICATIONS ADMINISTERED No Known Medications MEDICAL (GENERAL) HISTORY Type Description Date Medical History Insomnia Medical History Anxiety Medical History Benign essential hypertension Medical History Uncomplicated asthma, unspec ified asthma severity, unspecified whether persistent Medical History Allergic rhinitis, unspecified allergic rhinitis type Medical History Postablative hypothyroidism Medical History Major depression Medical History Lumbar degenerative disc disease Medical History Renal insufficiency Medical History Difficulty concentrating Medical History Chronic pain syndrome Medical History Positive urine drug screen Medical History Arthritis, multiple joint involvement Medical History Irregular heart rhythm Medical History sleep apnea - on c-pap Medical History recurrent seroma (abdominal) - Dr. Marva jacobson ([facility]) Surgical History appendectomy Surgical History tonsillectomy and adenoidectomy Surgical History cholecystectomy Surgical History dilatation and curettage 1996 Surgical History oopherectomy-right Surgical History hysterectomy, abdominal, 2015 Surgical History Abdominal hernia repair 09/2015 Surgical History Abdominal Hernia Repair 2017 Surgical History cardiac cath-Dr De La Rosa - normal 2018 Hospitalization History Vomiting 2011 Hospitalization History Asthma exac Hospitalization History Mononucleosis Hospitalization History Pneumonia Hospitalization History Surgery(s) only Hospitalization History chest pain 11/2016 Hospitalization History [facility]- Diarrhea/abdominal pain 11/2016 Hospitalization History [facility] ER for heart beating funny 03/2018
--- OUTSIDE RECORDS SUMMARY | 2020-01-07 10:47 | XMS REPORT ---
Author Author Deja Joseph Doctor Organization [facility] Address Unknown Phone Unavailable Care Team Providers Care Milking Worker Name Role Phone Migration, Doctor Unavailable Unavailable PROBLEMS Type Condition ICD9-CM Code PAO57-OB Code Onset Dates Condition S tatus SNOMED Code Problem Anxiety F41.9 Active 38807940 Problem Positive urine drug screen R82.5 Act natalie 077112623 Problem Allergic rhinitis, unspecified allergic rhinitis type J30.9 Active 74580555 Problem Benign essential hypertension I10 Active 1967144 Problem Degenerative disc disease, lumbar M51.36 Active 19793627 Problem Primary osteoarthritis of left knee M17.12 Active 156200949622847 Problem Renal insufficiency N28.9 Active 057930189 Problem Moderate episode of recurrent major depressive disorder F33.1 Active 54103285 Problem Difficulty concentrating R41.840 Activ e 23402322 Problem Chronic pain syndrome G89.4 Active 572401680 Problem Fatigue, unspecified type R53.83 Acti ve 42755593 Problem ADHD, predominantly inattentive type F90.0 Active 77603181 Problem Irregular heart rhythm I49.9 Active 643854585 Problem Other chronic pain G89.29 Active 8 7696097 Problem Arthritis, multiple joint involvement M12.9 Active 06385907640563 Problem Uncomplicated asthma, unspec ified asthma severity, unspecified whether persistent J45.909 Active 96264392 Problem Major depression F32.9 Active 370 516486 Problem Obstructive sleep apnea syndrome G47.33 Active 49650742 Problem Postablative hypothyroidism E89.0 Ac tive 105088538 Problem Obstructive sleep apnea syndrome G47.33 Active 00154442 Problem Other hyperlipidemia E78.49 Active 86066213 Problem Lumbar degenerative disc disease M51.36 Active 43579076 Problem Insomnia G47.00 Active 861785288 Problem Chondromalacia patellae, right knee M22.41 Active 06395407140640247 Problem Chondromalacia patellae of left knee M22.42 Active 214191809456874 Problem Allergic rhinitis, unspecified seasonality, unspecifie d trigger J30.9 Active 97787754 ALLERGIES No Information ENCOUNTERS Encounter Location Date Diagnosis [facility] [address] 340B [id number] [place] [address] Sep, [facility] [address] 340B [id number] [place] [address] Aug, [facility] [address] 340[place] [id number] [address] Aug, [facility] [place] [address] 340B [id number] [place] [address] Aug, Migraine headache G43.909 ; Postablative hypothyroidism E89.0 ; Fatigue, unspecified type R53.83 and Lumbar degenerative disc disease M51.36 [facility] [address] 340B [id number] [place] [address] Aug, [facility] [place] [address] 340B [id number] [place] [address] Jun, [facility] [address] [facility] [id number] 100[address] [place] [address] Jun, [facility] [address] 340B [id number] [place] [address] Jun, [facility] [address] [id number] [place] [address] Jun, [facility] [address] 340[address] [id number] [place] [address] Jun, [facility] [place] [address] [id number] [place] [address] May, [facility] [address] 340B [id number] [place] [address] Apr, [facility] [address] [id number] [place] [address] Apr, [facility] [address] 340B [id number] [place] [address] Apr, [facility] [address] 340B [id number] [place] [address] Mar, [facility] [address] 340B [id number] [place] [address] Mar, Possible urinary tract infec tion R39.89 [facility] [address] 340B [id number] [place] [address] Mar, Generalized abdominal pain R 10.84 [facility] [address] 340B [id number] [place] [address] Mar, [facility] [address] 340B [id number] [place] [address] Mar, Generalized abdominal pain R 10.84 [facility] [address] 340B [id number] [place] [address] Mar, [facility] [place] [address] 340B [id number] [place] [address] Mar, Generalized abdominal pain R 10.84 [facility] [address] 340B [id number] [place] [address] Mar, Nausea R11.0 and Pain of upp er abdomen R10.10 [facility] [address] 340B [id number] [place] [address] Mar, [facility] [address] [facility] [id number] [address] [place] [address] Mar, [facility] [address] 340B [id number] [place] [address] Feb, Moderate episode of recurren t major depressive disorder F33.1 [facility] [address] [facility] [id number] [address] [place] [address] Feb, [facility] [place] [address] 340B [id number] [place] [address] Feb, Moderate episode of recurren t major depressive disorder F33.1 ; Obstructive sleep apnea syndrome G47.33 ; Encounter for immunization Z23 ; Postablative hypothyroidism E89.0 and Preoperative examination Z01.818 [facility] [address] 340B [id number] [place] [address] Feb, [facility] [address] 340B [id number] [place] [address] Feb, [facility] [address] 340B [id number] [place] [address] Feb, [facility] [place] [address] 340B [id number] [place] [address] Jan, [facility] [address] 340B [id number] [place] [address] Jan, [facility] [address] 340B [id number] [place] [address] Jan, Seroma of digestive system a fter digestive system procedure K91.872 [facility] [place] [address] 340B [id number] [place] [address] Jan, [facility] [place] [address] 340B [id number] [place] [address] Jan, Fatigue, unspecified type R5 3.83 ; Hot flashes R23.2 ; Pain of left calf M79.662 and Abdominal wall seroma, sequela S30.1XXS [facility] [address] [facility] [id number] [address] [address] Jan, [facility] [address] [id number] [place] [address] Jan, Muscle strain T14.8XXA ; Shireen lgia M79.10 and Morbid obesity E66.01 [facility] [address] 340B [id number] [place] [address] Jan, Allergic rhinitis, unspecifi ed seasonality, unspecified trigger J30.9 [facility] [address] 340B [id number] [place] [address] Jan, Postablative hypothyroidism E89.0 ; Fatigue, unspecified type R53.83 ; Morbid obesity E66.01 ; Breast cancer screening Z12.39 and Allergic rhinitis, unspecified seasonality, unspecified trigger J30.9 [facility] [address] [facility] [id number] [place] [address] Jan, Chondromalacia patellae of l eft knee M22.42 and Chondromalacia patellae, right knee M22.41 [facility] [place] [address] 340B [id number] [place] [address] Dec, [facility] [place] [address] 340B [id number] [place] [address] Dec, [facility] [place] [address] 340B [id number] [place] [address] Nov, [facility] [place] [address] 340B [id number] [place] [address] Nov, Lower abdominal pain R10.30 ; Other specified postprocedural states Z98.890 ; Personal history of other diseases of the digestive system Z87.19 and Morbid obesity E66.01 [place] [address] [facility] [id number] [address] [place] [address] October, [facility] [place] [address] 340B [id number] [place] [address] October, [facility] [place] [address] 340B [id number] [place] [address] October, Chronic pain syndrome G89.4 [facility] [place] [address] 340B [id number] [place] [address] October, [facility] [place] [address] 340B [id number] [place] [address] October, [facility] [place] [address] 340B [id number] [place] [address] October, Right lower quadrant abdomin al pain R10.31 [place] [address] [facility] [id number] [address] [place] [address] October, [facility] [address] 340B [id number] [place] [address] October, [facility] [address] 340B [id number] [place] [address] October, [facility] [address] 340B [id number] [place] [address] Sep, [facility] [address] 340B [id number] [place] [address] Sep, Chronic pain syndrome G89.4 [facility] [place] [address] 340B [id number] [place] [address] Sep, Chronic pain syndrome G89.4 [facility] [place] [address] 340B [id number] [place] [address] Sep, Witnessed apneic spells R06. 81 ; Loud snoring R06.83 ; Chronic fatigue R53.82 and Chronic pain syndrome G89.4 [facility] [address] [facility] [id number] [address] [place] [address] Sep, [facility] [address] [id number] [place] [address] Sep, Acute nonintractable headach e, unspecified headache type R51 and Morbid obesity E66.01 [facility] [place] [address] 340B [id number] [place] [address] Sep, Morbid obesity E66.01 ; Bila teral leg edema R60.0 ; Pain of left leg M79.605 ; Pain in right leg M79.604 ; Generalized abdominal pain R10.84 and Lumbar back pain M54.5 [facility] [address] [facility] [id number] [address] [place] [address] Sep, Acute pain of left knee M25. 562 and Primary osteoarthritis of left knee M17.12 [facility] [place] [address] 340B [id number] [address] Aug, [facility] [place] [address] 340B [id number] [place] [address] Aug, [facility] [place] [address] 340B [id number] [place] [address] Aug, [facility] [address] 340B [id number] [place] [address] Aug, Arthritis, multiple joint in volvement M12.9 ; Abdominal wall seroma, subsequent encounter S30.1XXD ; Degenerative disc disease, lumbar M51.36 and Chronic pain syndrome G89.4 [facility] [place] [address] 340B [id number] [place] [address] Aug, Morbid obesity E66.01 and Ab dominal wall pain R10.9 [facility] [place] [address] 340B [id number] [place] [address] Aug, Abdominal wall pain R10.9 ; Abdominal wall seroma, initial encounter S30.1XXA and Leg edema R60.0 [facility] [address] [facility] [id number] [address] [place] [address] Jul, Acute pain of left knee M25. 562 [facility] [address] [facility] [id number] [address] [place] [address] Jul, [facility] [place] [address] 340B [id number] [place] [address] Jul, Bilateral lower extremity ed ginette R60.0 ; Pain of left leg M79.605 ; Pain in right leg M79.604 ; BMI 45.0-49.9, adult Z68.42 and Morbid obesity E66.01 [facility] [place] [facility] [address] [id number] [place] [address] Jul, BMI 50.0-59.9, adult Z68.43 ; Swelling of lower extremity M79.89 and Irregular heart rhythm I49.9 [facility] [address] [facility] [id number] [address] [place] [address] Jun, [facility] [address] [facility] [id number] [address] [place] [address] Jun, [facility] [address] [facility] [id number] [address] [place] [address] Jun, [facility] [address] [facility] [id number] [address] [place] [address] Jun, Primary insomnia F51.01 [facility] [address] [facility] [id number] [address] [place] [address] Jun, [facility] [address] [place] [id number] [place] [address] Jun, BMI 45.0-49.9, adult Z68.42 ; Acquired hypothyroidism E03.9 ; Fatigue, unspecified type R53.83 ; Palpitations R00.2 ; Right lower quadrant abdominal pain R10.31 and Morbid obesity E66.01 [facility] [address] [facility] [id number] [address] [place] [address] May, [facility] [address] [place] [id number] [place] [address] May, Acquired hypothyroidism E03. 9 [facility] [address] [place] [id number] [address] [place] [address] May, [facility] [address] [facility] [id number] [address] [place] [address] Apr, Acquired hypothyroidism E03. 9 [facility] [address] [facility] [id number] [address] [place] [address] Mar, Acquired hypothyroidism E03. 9 ; Skin tag L91.8 and BMI 45.0-49.9, adult Z68.42 [facility] [address] [facility] [id number] [address] [place] [address] Dec, [facility] [address] [place] [id number] [address] [place] [address] Nov, Edema, unspecified type R60. 9 [facility] [address] [facility] [id number] [address] [place] [address] Nov, Postablative hypothyroidism E89.0 [facility] [address] [place] [id number] [address] [place] [address] Nov, [facility] [address] [address] Nov, Generalized abdominal pain R 10.84 ; History of abdominal hernia Z87.19 ; Pain of left calf M79.662 and BMI 45.0-49.9, adult Z68.42 [facility] [address] [address] Sep, [facility] [address] [place] [id number] [address] [place] [address] Sep, [facility] [address] [address] Sep, Postablative hypothyroidism E89.0 ; Pain in left knee M25.562 ; Edema, unspecified type R60.9 ; Multiple joint pain M25.50 and BMI 45.0-49.9, adult Z68.42 [facility] [address] [place] [address] Aug, [facility] [address] [place] [address] [place] [address] 12 Jul, 2017 History of swelling of feet Z87.39 [facility] [address] [place] [address] 05 Jul, 2017 [facility] [address] [place] [id number] [address] [place] [address] Jul, Pain in left knee M25.562 ; Other chronic pain G89.29 and BMI 45.0-49.9, adult Z68.42 [facility] [address] [place] [address] Jun, [facility] [address] [place] [id number] [address] [place] [address] Jun, [facility] [address] [place] [id number] [address] [place] [address] May, Primary insomnia F51.01 [facility] [address] [place] [id number] [place] [address] Apr, [facility] [address] [place] [id number] [place] [address] Apr, [place] [address] [address] Apr, Acute pain of left knee M25. 562 ; Renal insufficiency N28.9 ; Fatigue, unspecified type R53.83 ; Postablative hypothyroidism E89.0 and BMI 40.0-44.9, adult Z68.41 [place] [address] [place] [address] Mar, Acute pain of left knee M25. 562 [place] [address] [place] [id number] [address] [place] [address] 28 Feb, 2017 Renal insufficiency N28.9 [facility] [address] [place] [id number] [address] [place] [address] Feb, [facility] [address] [place] [id number] [address] [place] [address] Feb, [facility] [address] [place] [id number] [address] [place] [address] Feb, [place] [address] [address] Feb, Renal insufficiency N28.9 ; ADHD, predominantly inattentive type F90.0 ; Postablative hypothyroidism E89.0 ; Primary insomnia F51.01 ; Difficulty concentrating R41.840 ; History of swelling of feet Z87.39 ; Chronic pain syndrome G89.4 and Moderate episode of recurrent major depressive disorder F33.1 [facility] [address] [facility] [id number] [address] [place] [address] Feb, [facility] [address] [facility] [id number] [address] [place] [address] Feb, [facility] [address] [facility] [id number] [address] [place] [address] Jan, ADHD, predominantly inattent natalie type F90.0 [facility] [address] [facility] [id number] [address] [place] [address] Jan, Renal insufficiency N28.9 ; Postablative hypothyroidism E89.0 and History of swelling of feet Z87.39 [facility] [address] [place] [id number] [address] [place] [address] Jan, Chronic pain syndrome G89.4 [place] [address] [place] [address] Jan, [place] [address] [place] [id number] [address] [place] [address] Jan, Renal insufficiency N28.9 ; Primary insomnia F51.01 ; Difficulty concentrating R41.840 ; Postablative hypothyroidism E89.0 ; History of swelling of feet Z87.39 ; Chronic pain syndrome G89.4 and Moderate episode of recurrent major depressive disorder F33.1 [facility] [address] [place] [address] Jan, [facility] [address] [facility] [id number] [address] [place] [address] Jan, Candidal dermatitis B37.2 [facility] [address] [facility] [id number] [address] [place] [address] Dec, [facility] [address] [id number] [place] [address] Dec, [facility] [address] [place] [id number] [address] [place] [address] Dec, [facility] [address] [place] [id number] [address] [place] [address] Dec, Stool color black K92.1 [facility] [address] [place] [id number] [address] [place] [address] 05 Dec, 2016 Diarrhea of presumed infecti ous origin A09 [facility] [address] [place] [id number] [address] [place] [address] Dec, Right lower quadrant abdomin al pain R10.31 and Stool color black K92.1 [facility] [address] [address] Nov, [facility] [address] [place] [id number] [place] [address] 14 Nov, 2016 Visit for TB skin test Z11.1 and Pre-employment examination Z02.1 [facility] [address] [place] [id number] [address] [place] [address] 03 Nov, 2016 [facility] [address] [facility] [id number] [place] [address] October, [facility] [address] [facility] [id number] [place] [address] October, [facility] [address] [facility] [id number] [place] [address] Aug, [facility] [address] [facility] [id number] [place] [address] Aug, Other fatigue R53.83 ; BMI 4 5.0-49.9, adult Z68.42 ; Edema, unspecified type R60.9 ; Benign essential hypertension I10 and Lumbar degenerative disc disease M51.36 [facility] [address] [id number] [address] [place] [address] Aug, Skin tag L91.8 [facility] [address] [address] 06 Aug, 2016 Abnormal laboratory test res ult R89.9 [facility] [address] [address] 20 Jul, 2016 Insomnia, unspecified type G 47.00 [facility] [address] [address] Jul, Benign essential hypertensio n I10 ; BMI 45.0-49.9, adult Z68.42 ; Lumbar degenerative disc disease M51.36 ; Edema, unspecified type R60.9 ; Other fatigue R53.83 and Hypothyroidism, unspecified type E03.9 [facility] [address] [address] 07 Jul, 2016 [facility] [address] [address] Jul, Benign essential hypertensio n I10 ; BMI 45.0-49.9, adult Z68.42 ; Lumbar degenerative disc disease M51.36 ; Edema, unspecified type R60.9 ; Other fatigue R53.83 and Hypothyroidism, unspecified type E03.9 [facility] [address] [address] Jun, [facility] [address] [address] Jun, [facility] [address] [address] Jun, Benign essential hypertensio n I10 ; Hypothyroidism, unspecified type E03.9 ; Other fatigue R53.83 ; Midline low back pain without sciatica, unspecified chronicity M54.5 and BMI 45.0-49.9, adult Z68.42 [facility] [address] [facility] [id number] [place] [id number] Jun, Postablative hypothyroidism E89.0 ; Rhin opharyngitis J00 and Encounter for immunization Z23 [facility] [address] [id number] [place] [id number] Jun, [facility] [address] [id number] [place] [id number] May, [facility] [address] [place] [id number] [place] [address] May, [facility] [address] [id number] [place] [id number] May, [facility] [address] [id number] [place] [id number] Apr, Hypothyroidism, unspecified type E03.9 [facility] [address] [id number] [place] [id number] Apr, Hypothyroidism, unspecified type E03.9 [facility] [address] [facility] [id number] [place] [id number] Apr, [facility] [address] [id number] [place] [id number] Mar, Hypothyroidism, unspecified type E03.9 ; Moderate single current episode of major depressive disorder F32.1 ; Other hyperlipidemia E78.49 and Elevated liver function tests R79.89 [facility] [address] [facility] [id number] [facility] [id number] Feb, [facility] [address] [facility] [id number] [place] [id number] Dec, Moderate single current episode of major depressive disorder F32.1 [facility] [address] [id number] [place] [id number] Nov, [facility] [address] [id number] [place] [id number] Nov, [facility] [address] [id number] [place] [id number] Nov, Hypothyroidism, unspecified type E03.9 ; Other hyperlipidemia E78.49 and Elevated liver function tests R79.89 [facility] [address] [facility] [id number] [place] [id number] Nov, 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 ; Hyp othyroidism, unspecified type E03.9 ; Benign essential hypertension I10 and Uncomplicated asthma, unspecified asthma severity J45.909 [facility] [address] [facility] [id number] [place] [id number] Nov, 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 ; Hyp othyroidism, unspecified type E03.9 ; Benign essential hypertension I10 and Uncomplicated asthma, unspecified asthma severity J45.909 [facility] [address] [facility] [id number] [place] [id number] October, [facility] [address] [facility] [id number] [place] [id number] October, [address] [facility] [id number] [place] [id number] October, Abnormal laboratory test result R89.9 [facility] [address] [facility] [id number] [place] [id number] October, Status post bilateral oophorectomy Z90.7 22 [facility] [address] [facility] [id number] [place] [id number] Sep, [address] [facility] [id number] [place] [id number] Aug, [facility] [address] [facility] [id number] [place] [id number] Aug, Complex ovarian cyst N83.20 [facility] [address] [place] [id number] Aug, Other acute sinusitis, recurrence not sp ecified J01.80 [id number] [place] [id number] Aug, [facility] [address] [place] [phone] Jun, [id number] [place] [id number] Jun, [id number] [place] [id number] May, Allergic rhinitis, unspecified allergic rhinitis type J30.9 [id number] [place] [address] May, [id number] [place] [id number] Mar, [id number] [place] [id number] Mar, [id number] [place] [id number] Jan, Hypothyroidism 244.9 and Cyst in hand 72 7.43 [id number] [place] , [place] [id number] Jan, [id number] [place] [id number] Dec, [id number] [place] [id number] Dec, Acute sinusitis 461.9 and Cough 786.2 [id number] [place] [id number] Dec, Insect bite 919.4 [id number] [place] [id number] Nov, [facility] [address] [id number] [place] [id number] Nov, [facility] [address] [id number] [place] [id number] Sep, Obesity, morbid 278.01 ; Sleep apnea, ob structive 327.23 and Fatigue due to sleep pattern disturbance 780.79 [facility] [address] [id number] [place] [address] Sep, [facility] [address] [id number] [place] [address] Sep, [facility] [address] [id number] [place] [id number] Aug, [facility] [address] [id number] [address] [place] [address] Aug, [facility] [address] [id number] [place] [id number] Jul, [facility] [address] [id number] [address] [place] [address] Jul, [facility] [address] [id number] [address] [place] [id number] Jul, [facility] [address] [id number] [place] [id number] Jul, [facility] [address] [id number] [place] [id number] Jun, [facility] [address] [id number] [address] [place] [address] Jun, [facility] [address] [id number] [place] [id number] May, [facility] [address] [facility] [id number] [address] [place] [address] May, [facility] [address] [facility] [id number] [address] [place] [id number] Mar, [facility] [address] [facility] [id number] [address] [place] [id number] Mar, [facility] [address] [facility] [id number] [address] [place] [phone] Mar, [address] [id number] [id number] Mar, [facility] [address] [facility] [id number] [address] [place] [id number] Mar, [facility] [address] [facility] [id number] [address] [place] [id number] Mar, [facility] [address] [facility] [id number] [address] [place] [id number] Mar, [facility] [id number] [place] [id number] Mar, [facility] [address] [facility] [id number] [address] [place] [id number] Mar, [facility] [id number] [id number] Mar, [facility] [address] [facility] [id number] [address] [place] [id number] Mar, IMMUNIZATIONS No Known Immunizations SOCIAL HISTORY Never Assessed REASON FOR VISIT PLAN OF CARE VITAL SIGNS Height 67.5 in 2014-04-03 Weight 292.3 lbs 2014-04-03 Temperature 98.8 degrees Fahrenheit 2014-04-03 Heart Rate 72 bpm 2014-04-03 Respiratory Rate 22 2014-04-03 Blood pressure systolic 130 mmHg 2014-04-03 Blood pressure diastolic 80 mmHg 2014-04-03 MEDICATIONS Unknown Medications RESULTS No Results PROCEDURES [...] KU- Diarrhea/abdominal pain 11/2016 Hospitalization History [facility] ER for heart beating funny 03/2018
--- OUTSIDE RECORDS SUMMARY | 2020-01-07 10:53 | XMS REPORT | Continuity of Care Document ---
Author Organization Unknown Address Unknown Phone Unavailable Allergies Active Description Code Type Severity Reaction Onset Reported/Identified Relationship to Patient Clinical Status Yes SULFA Drug Allergy N/A N/A Yes TETRACYCLINE [id number] Eduardo g Allergy N/A N/A Yes Compazine Drug N/A Agitation Yes hydrOXYzine Drug N/A Agitation Yes sulfa drugs Drug N/A N Yes Sulfa (Sulfonamide Antibiotics) Drug Allergy N/A N/A 04/03/2014 Yes Tetracyclines Drug Allergy N/A N/A 04/03/2014 Yes No Known Drug Allergies [id number] Drug Allergy Unknown N/A 12/20/2016 Yes prochlorperazine [id number] Drug Allergy Unknown N/A 12/20/2016 Yes hydroxyzine [id number] Drug Aller gy Unknown N/A 06/27/2018 Yes Sulfa (Sulfonamide Antibiotics) [id number] Drug Allergy Unknown N/A 018 Yes tetracycline [id number] Drug Allergy Unknown N/A 06/27/2018 Yes tetracycline [id number] Drug Allergy Severe N/V 06/08/2019 Yes hydroxyzine [id number] Drug Aller gy Mild "JITTERS" 06/08/2019 Yes melatonin [id number] Drug Allergy Mild NIGHTMARES 06/08/2019 Yes prochlorperazine [id number] Drug Allergy Mild "JITTERS" 06/08/2019 Yes Sulfa (Sulfonamide Antibiotics) [id number] 0491 Drug Allergy Mild N/V 9 Medications Medication Packaging Start Date St op Date Route Dosage Sig LEVOTHYROXINE SODIUM ORAL 10/07/2015 ORAL 3030 gilma y CITALOPRAM HYDROBROMIDE ORAL 10/07/2015 ORAL 3030 daily PERCOCET ORAL 016 ORAL 3030 three ti mes daily DICYCLOMINE HCL ORAL 10/18/2015 11/17/2015 ORAL [id number] 4 times a day TYLENOL WITH CODEINE #3 ORAL 11/15/2015 ORAL 2020 every 6 hours furosemide 07/12 PO 40 mg / 1 tab pantoprazole PO 40 mg / 1 tab venlafaxine 06/28 PO 75 mg / 1 tab cyclobenzaprine 07/12/2017 PO 10 mg / 1 tab levothyroxine PO 25 mcg / 1 tab promethazine 08/11/2017 PO 25 mg / 1 tab Problems Date Dx Coded Attending Type Code Diagnosis Diagnosed By 04/03/2014 KIM MITCHELL MD 626 .2 MENORRHAGIA 04/03/2014 KIM MITCHELL MD 626 .2 MENORRHAGIA 04/03/2014 KIM MITCHELL MD 626 .2 MENORRHAGIA 04/03/2014 KIM MITCHELL MD 626 .2 MENORRHAGIA 04/03/2014 KAVON GARZA, DANIELA Hernandes 626.2 MENORRHAGIA 04/03/2014 KIM MITCHELL MD 626 .2 MENORRHAGIA 04/23/2014 KIM MITCHELL MD 782 .1 RASH 04/23/2014 KIM MITCHELL MD V70 .0 ROUTINE GENERAL MEDICAL EXAMINATION AT A HEALTH CARE FACILITY 04/23/2014 KIM MITCHELL MD V73 .81 HPV SCREENING 04/23/2014 KIM MITCHELL MD V76 .10 BREAST CANCER SCREENING 04/23/2014 KIM MITCHELL MD V76 .2 CERVICAL CANCER SCREENING (PAP SMEAR) 04/23/2014 KIM MITCHELL MD 611 .72 BREAST LUMP OR MASS 04/23/2014 KIM MITCHELL MD 782 .1 RASH 04/23/2014 KIM MITCHELL MD V70 .0 ROUTINE GENERAL MEDICAL EXAMINATION AT A HEALTH CARE FACILITY 04/23/2014 KIM MITCHELL MD V73 .81 HPV SCREENING 04/23/2014 KIM MITCHELL MD V76 .10 BREAST CANCER SCREENING 04/23/2014 KIM MITCHELL MD V76 .2 CERVICAL CANCER SCREENING (PAP SMEAR) 04/23/2014 KAVON GARZA, DANIELA Hernandes 611.72 BREAST LUMP OR MASS 04/23/2014 KAVON NINOS, DANIELA Hernandes 782.1 RASH 04/23/2014 KAVON GARZA, DANIELA Hernandes V70.0 ROUTINE GENERAL MEDICAL EXAMINATION AT A [facility] 04/23/2014 KAVON GARZA, DANIELA Hernandes V73.81 HPV SCREENING 04/23/2014 KAVON GARZA, DANIELA Hernandes V76.10 BREAST CANCER SCREENING 04/23/2014 KAVON GARZA, DANIELA Hernandes V76.2 CERVICAL CANCER SCREENING (PAP SMEAR) 04/23/2014 KIM MITCHELL MD 611 .72 BREAST LUMP OR MASS 04/23/2014 KIM MITCHELL MD 782 .1 RASH 04/23/2014 KIM MITCHELL MD V70 .0 ROUTINE GENERAL MEDICAL EXAMINATION AT A [facility] 04/23/2014 KIM MITCHELL MD V73 .81 HPV SCREENING 04/23/2014 KIM MITCHELL MD V76 .10 BREAST CANCER SCREENING 04/23/2014 KIM MITCHELL MD V76 .2 CERVICAL CANCER SCREENING (PAP SMEAR) 08/22/2014 KIM MITCHELL MD 493 .92 ASTHMA (ACUTE) EXACERBATION 08/22/2014 KIM MITCHELL MD V65 .49 ASTHMA EDUCATION 10/12/2014 KIM MITCHELL MD 244 .9 HYPOTHYROIDISM 10/12/2014 KIM MITCHELL MD 796 .2 ELEVATED BLOOD PRESSURE READING WITHOUT DIAGNOSIS OF HYPERTENSION 10/13/2014 KIM MITCHELL MD 790 .6 LIVER FUNCTION TEST, ABNORMAL 12/19/2016 RADHA AVERY DO Ot R10.9 UNSPECIFIED ABDOMINAL PAIN 12/19/2016 RADHA AVERY DO Ot Z53.21 PROC/TRTMT NOT CRD OUT D/T PT LV BEF SEE 12/20/2016 JEANNETTE BELLO APRN Ot R11 .2 NAUSEA WITH VOMITING, UNSPECIFIED 12/20/2016 JEANNETTE BELLO APRN Ot R19 .7 DIARRHEA, UNSPECIFIED 12/20/2016 JEANNETTE BELLO APRN Ot R25 .2 CRAMP AND SPASM 12/22/2016 JEANNETTE BELLO APRN Ot R11 .2 NAUSEA WITH VOMITING, UNSPECIFIED 12/22/2016 JEANNETTE BELLO APRN Ot R19 .7 DIARRHEA, UNSPECIFIED 12/22/2016 JEANNETTE BELLO APRN Ot R25 .2 CRAMP AND SPASM 12/22/2016 BELLO, PETER J BIAS 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 Ot R11 .2 NAUSEA WITH VOMITING, UNSPECIFIED 12/22/2016 JEANNETTE BELLO BIAS 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 Ot R19 .7 DIARRHEA, UNSPECIFIED 12/22/2016 JEANNETTE BELLO BIAS 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 Ot R25 .2 CRAMP AND SPASM 07/13/2017 Prewett, Kacey Final L76.34 Postprocedural seroma of skin and subcutaneous tissue follow 07/13/2017 Prehenrik, Kacey Admitting R10.31 Right lower quadrant pain 07/13/2017 Prewett, Kacey Final R11 .2 Nausea with vomiting, unspecified 07/13/2017 Prewett, Kacey Final R51 Headache 07/13/2017 Prewett, Kacey Final T45.0X5A Adverse effect of antiallergic and antiemetic drugs, i nitial 06/27/2018 EDDI RAMIREZ Ot E03.9 HYPOTHYROIDISM, UNSPECIFIED 06/27/2018 SOLEDAD RAMIREZIS Ot F32.9 MAJOR DEPRESSIVE DISORDER, SINGLE EPISOD 06/27/2018 SOLEDAD RAMIREZIS Ot F41.9 ANXIETY DISORDER, UNSPECIFIED 06/27/2018 JAMES EDDI Ot G43.909 MIGRAINE, UNSP, NOT INTRACTABLE, WITHOUT 06/27/2018 SOLEDAD RAMIREZIS Ot G89.29 OTHER CHRONIC PAIN 06/27/2018 SOLEDAD RAMIREZIS Ot I10 ESSENTIAL (PRIMARY) HYPERTENSION 06/27/2018 SOLEDAD RAMIREZIS Ot J45.909 UNSPECIFIED ASTHMA, UNCOMPLICATED 06/27/2018 SOLEDAD RAMIREZIS Ot M06.9 RHEUMATOID ARTHRITIS, UNSPECIFIED 06/27/2018 SOLEDAD RAMIREZIS Ot R53.83 OTHER FATIGUE 06/27/2018 SOLEDAD RAMIREZIS Ot Z87.891 PERSONAL HISTORY OF NICOTINE DEPENDENCE 06/27/2018 SOLEDAD RAMIREZIS Ot Z88.1 ALLERGY STATUS TO OTHER ANTIBIOTIC AGENT 06/27/2018 EDDI RAMIREZ Ot Z88.2 ALLERGY STATUS TO SULFONAMIDES STATUS 06/27/2018 EDDI RAMIREZ Ot Z88.8 ALLERGY STATUS TO OTH DRUG/MEDS/BIOL SUB 06/27/2018 SOLEDAD RAMIREZIS Ot Z90.49 ACQUIRED ABSENCE OF OTHER SPECIFIED PART 06/27/2018 EDDI RAMIREZ Ot Z90.710 ACQUIRED ABSENCE OF BOTH CERVIX AND UTER 06/27/2018 SOLEDAD RAMIREZIS Ot Z90.89 ACQUIRED ABSENCE OF OTHER ORGANS 06/30/2018 SOLEDAD RAMIREZIS Ot E03.9 HYPOTHYROIDISM, UNSPECIFIED 06/30/2018 SOLEDAD RAMIREZIS Ot F32.9 MAJOR DEPRESSIVE DISORDER, SINGLE EPISOD 06/30/2018 SOLEDAD RAMIREZIS Ot F41.9 ANXIETY DISORDER, UNSPECIFIED 06/30/2018 SOLEDAD RAMIREZIS Ot G43.909 MIGRAINE, UNSP, NOT INTRACTABLE, WITHOUT 06/30/2018 SOLEDAD RAMIREZIS Ot G89.29 OTHER CHRONIC PAIN 06/30/2018 SOLEDAD RAMIREZIS Ot I10 ESSENTIAL (PRIMARY) HYPERTENSION 06/30/2018 SOLEDAD RAMIREZIS Ot J45.909 UNSPECIFIED ASTHMA, UNCOMPLICATED 06/30/2018 SOLEDAD RAMIREZIS Ot M06.9 RHEUMATOID ARTHRITIS, UNSPECIFIED 06/30/2018 SOLEDAD RAMIREZIS Ot R53.83 OTHER FATIGUE 06/30/2018 SOLEDAD RAMIREZIS Ot Z87.891 PERSONAL HISTORY OF NICOTINE DEPENDENCE 06/30/2018 SOLEDAD RAMIREZIS Ot Z88.1 ALLERGY STATUS TO OTHER ANTIBIOTIC AGENT 06/30/2018 JAMES EDDI Ot Z88.2 ALLERGY STATUS TO SULFONAMIDES STATUS 06/30/2018 JAMES EDDI Ot Z88.8 ALLERGY STATUS TO OTH DRUG/MEDS/BIOL SUB 06/30/2018 SOLEDAD RAMIREZIS Ot Z90.49 ACQUIRED ABSENCE OF OTHER SPECIFIED PART 06/30/2018 SOLEDAD RAMIREZIS Ot Z90.710 ACQUIRED ABSENCE OF BOTH CERVIX AND UTER 06/30/2018 SOLEDAD RAMIREZIS Ot Z90.89 ACQUIRED ABSENCE OF OTHER ORGANS 07/08/2018 ARIES ROBERTS MD (DDU) Ot Z02.71 ENCOUNTER FOR DISABILITY DETERMINATION 07/18/2018 ECTOR GR BIAS 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 Ot R10.31 RIGHT LOWER QUADRANT PAIN 07/18/2018 ECTOR GR BIAS 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 Ot Z90.49 ACQUIRED ABSENCE OF OTHER SPECIFIED PART 07/18/2018 ECTOR GR BIAS 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 Ot Z98.890 OTHER SPECIFIED POSTPROCEDURAL STATES 07/19/2018 LUCIA IGNACIO FACC, ALI FACP CCDS Ot E66.01 MORBID (SEVERE) OBESITY DUE TO EXCESS CA 07/19/2018 LUCIA IGNACIO FACC, ALI FACP CCDS Ot G62.9 POLYNEUROPATHY, UNSPECIFIED 07/19/2018 LUCIA IGNACIO FACC, ALI FACP CCDS Ot R06.02 SHORTNESS OF BREATH 07/19/2018 LUCIA MD FACC, ALI FACP CCDS Ot R07.89 OTHER CHEST PAIN 07/19/2018 LUCIA MD FACC, ALI FACP CCDS Ot Z68.42 BODY MASS INDEX (BMI) 45.0-49.9, ADULT 07/19/2018 LUCIA MD FACC, ALI FACP CCDS Ot Z79.899 OTHER [facility] (CURRENT) DRUG THERAPY 07/22/2018 LUCIA IGNACIO FAC, ALI FACP CCDS Ot E66.01 MORBID (SEVERE) OBESITY DUE TO EXCESS CA 07/22/2018 LUCIA IGNACIO FAC, ALI FACP CCDS Ot G62.9 POLYNEUROPATHY, UNSPECIFIED 07/22/2018 LUCIA IGNACIO FAC, ALI FACP CCDS Ot R06.02 SHORTNESS OF BREATH 07/22/2018 LUCIA IGNACIO FAC, ALI FACP CCDS Ot R07.89 OTHER CHEST PAIN 07/22/2018 LUCIA IGNACIO [facility], ALI FACP CCDS Ot Z68.42 BODY MASS INDEX (BMI) 45.0-49.9, ADULT 07/22/2018 LUCIA IGNACIO [facility], ALI FACP CCDS Ot Z79.899 OTHER [facility] (CURRENT) DRUG THERAPY 08/05/2018 ARIES ROBERTS MD (DDU) Ot Z02.71 ENCOUNTER FOR DISABILITY DETERMINATION 08/05/2018 ECTOR GR BIAS 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 Ot R10.31 RIGHT LOWER QUADRANT PAIN 08/05/2018 ECTOR GR BIAS 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 Ot Z90.49 ACQUIRED ABSENCE OF OTHER SPECIFIED PART 08/05/2018 ECTOR GR BIAS 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 Ot Z98.890 OTHER SPECIFIED POSTPROCEDURAL STATES 08/08/2018 RICHA WIGGINS BIAS 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 Ot M79.89 OTHER SPECIFIED SOFT TISSUE DISORDERS 08/08/2018 RICHA WIGGINS BIAS 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 Ot R60 .0 LOCALIZED EDEMA 08/18/2018 WIGGINSRICHA KANG BIAS 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 Ot M79.89 OTHER SPECIFIED SOFT TISSUE DISORDERS 08/18/2018 RICHA WIGGINS BIAS 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 Ot R60 .0 LOCALIZED EDEMA 08/29/2018 LEONIDES ALFARO MD Ot E03 .9 HYPOTHYROIDISM, UNSPECIFIED 08/29/2018 LEONIDES ALFARO MD Ot F32 .9 MAJOR DEPRESSIVE DISORDER, SINGLE EPISOD 08/29/2018 LEONIDES ALFARO MD Ot F41 .9 ANXIETY DISORDER, UNSPECIFIED 08/29/2018 LEONIDES ALFARO MD Ot J45.909 UNSPECIFIED ASTHMA, UNCOMPLICATED 08/29/2018 LEONIDES ALFARO MD Ot K21 .9 GASTRO-ESOPHAGEAL REFLUX DISEASE WITHOUT 08/29/2018 LEONIDES ALFARO MD Ot R10.31 RIGHT LOWER QUADRANT PAIN 08/29/2018 LEONIDES ALFARO MD Ot R11 .0 NAUSEA 08/29/2018 LEONIDES ALFARO MD Ot Z87.19 PERSONAL HISTORY OF OTHER DISEASES OF 08/29/2018 LEONIDES ALFARO MD Ot Z87.891 PERSONAL HISTORY OF NICOTINE DEPENDENCE 08/29/2018 LEONIDES ALFARO MD Ot Z88 .1 ALLERGY STATUS TO OTHER ANTIBIOTIC AGENT 08/29/2018 LEONIDES ALFARO MD Ot Z88 .2 ALLERGY STATUS TO SULFONAMIDES STATUS 08/29/2018 LEONIDES ALFARO MD Ot Z88 .8 ALLERGY STATUS TO OTH DRUG/MEDS/BIOL SUB 08/29/2018 LEONIDES ALFARO MD Ot Z90.49 ACQUIRED ABSENCE OF OTHER SPECIFIED PART 08/29/2018 LEONIDES ALFARO MD Ot Z90.710 ACQUIRED ABSENCE OF BOTH CERVIX AND UTER 08/29/2018 LEONIDES ALFARO MD Ot Z90.89 ACQUIRED ABSENCE OF OTHER ORGANS 08/29/2018 LEONIDES ALFARO MD Ot Z98.890 OTHER SPECIFIED POSTPROCEDURAL STATES 08/31/2018 LEONIDES ALFARO MD Ot E03 .9 HYPOTHYROIDISM, UNSPECIFIED 08/31/2018 LEONIDES ALFARO MD Ot F32 .9 MAJOR DEPRESSIVE DISORDER, SINGLE EPISOD 08/31/2018 LEONIDES ALFARO MD Ot F41 .9 ANXIETY DISORDER, UNSPECIFIED 08/31/2018 LEONIDES ALFARO MD Ot J45.909 UNSPECIFIED ASTHMA, UNCOMPLICATED 08/31/2018 LEONIDES ALFARO MD Ot K21 .9 GASTRO-ESOPHAGEAL REFLUX DISEASE WITHOUT 08/31/2018 LEONIDES ALFARO MD Ot R10.31 RIGHT LOWER QUADRANT PAIN 08/31/2018 LEONIDES ALFARO MD Ot R11 .0 NAUSEA 08/31/2018 LEONIDES ALFARO MD Ot Z87.19 PERSONAL HISTORY OF OTHER DISEASES OF 08/31/2018 LEONIDES ALFARO MD Ot Z87.891 PERSONAL HISTORY OF NICOTINE DEPENDENCE 08/31/2018 LEONIDES ALFARO MD Ot Z88 .1 ALLERGY STATUS TO OTHER ANTIBIOTIC AGENT 08/31/2018 LEONIDES ALFARO MD Ot Z88 .2 ALLERGY STATUS TO SULFONAMIDES STATUS 08/31/2018 LEONIDES ALFARO MD Ot Z88 .8 ALLERGY STATUS TO OTH DRUG/MEDS/BIOL SUB 08/31/2018 LEONIDES ALFARO MD Ot Z90.49 ACQUIRED ABSENCE OF OTHER SPECIFIED PART 08/31/2018 LEONIDES ALFARO MD Ot Z90.710 ACQUIRED ABSENCE OF BOTH CERVIX AND UTER 08/31/2018 LEONIDES ALFARO MD Ot Z90.89 ACQUIRED ABSENCE OF OTHER ORGANS 08/31/2018 LEONIDES ALFARO MD Ot Z98.890 OTHER SPECIFIED POSTPROCEDURAL STATES 09/01/2018 KEATON DO, YUMIKO Ot E03.9 HYPOTHYROIDISM, UNSPECIFIED 09/01/2018 KEATON DO, YUMIKO Ot F32.9 MAJOR DEPRESSIVE DISORDER, SINGLE EPISOD 09/01/2018 PUGH DO, YUMIKO Ot F41.9 ANXIETY DISORDER, UNSPECIFIED 09/01/2018 KEATON DO YUMIKO Ot J45.909 UNSPECIFIED ASTHMA, UNCOMPLICATED 09/01/2018 KEATON DO YUMIKO Ot K21.9 GASTRO-ESOPHAGEAL REFLUX DISEASE WITHOUT 09/01/2018 KEATON DO YUMIKO Ot R10.84 GENERALIZED ABDOMINAL PAIN 09/01/2018 KEATON LACY YUMIKO Ot Z87.19 PERSONAL HISTORY OF OTHER DISEASES OF TH 09/01/2018 KEATON LACY, YUMIKO Ot Z87.891 PERSONAL HISTORY OF NICOTINE DEPENDENCE 09/01/2018 KEATON LACY, YUMIKO Ot Z88.1 ALLERGY STATUS TO OTHER ANTIBIOTIC AGENT 09/01/2018 KEATON LACY, YUMIKO Ot Z88.2 ALLERGY STATUS TO SULFONAMIDES STATUS 09/01/2018 KEATON DO, YUMIKO Ot Z88.8 ALLERGY STATUS TO OTH DRUG/MEDS/BIOL SUB 09/01/2018 KEATON LACY, YUMIKO Ot Z90.49 ACQUIRED ABSENCE OF OTHER SPECIFIED PART 09/01/2018 KEATON LACY YUMIKO Ot Z90.710 ACQUIRED ABSENCE OF BOTH CERVIX AND UTER 09/01/2018 KEATON DO, YUMIKO Ot Z90.89 ACQUIRED ABSENCE OF OTHER ORGANS 09/05/2018 KEATON DO YUMIKO Ot E03.9 HYPOTHYROIDISM, UNSPECIFIED 09/05/2018 PUGH DO, YUMIKO Ot F32.9 MAJOR DEPRESSIVE DISORDER, SINGLE EPISOD 09/05/2018 KEATON DO, YUMIKO Ot F41.9 ANXIETY DISORDER, UNSPECIFIED 09/05/2018 KEATON DO YUMIKO Ot J45.909 UNSPECIFIED ASTHMA, UNCOMPLICATED 09/05/2018 PUGH DO, YUMIKO Ot K21.9 GASTRO-ESOPHAGEAL REFLUX DISEASE WITHOUT 09/05/2018 KEATON LACYYUMIKO Ot R10.84 GENERALIZED ABDOMINAL PAIN 09/05/2018 KEATON LACYYUMIKO Ot Z87.19 PERSONAL HISTORY OF OTHER DISEASES OF TH 09/05/2018 KEATON LACY, YUMIKO Ot Z87.891 PERSONAL HISTORY OF NICOTINE DEPENDENCE 09/05/2018 KEATON LACY, YUMIKO Ot Z88.1 ALLERGY STATUS TO OTHER ANTIBIOTIC AGENT 09/05/2018 KEATON LACYYUMIKO Ot Z88.2 ALLERGY STATUS TO SULFONAMIDES STATUS 09/05/2018 KEATON LACY, YUMIKO Ot Z88.8 ALLERGY STATUS TO OTH DRUG/MEDS/BIOL SUB 09/05/2018 KEATON LACYYUMIKO Ot Z90.49 ACQUIRED ABSENCE OF OTHER SPECIFIED PART 09/05/2018 KEATON LACYYUMIKO Ot Z90.710 ACQUIRED ABSENCE OF BOTH CERVIX AND UTER 09/05/2018 KEATON LACYYUMIKO Ot Z90.89 ACQUIRED ABSENCE OF OTHER ORGANS 10/04/2018 LYLA LANGE MD Ot E03.9 HYPOTHYROIDISM, UNSPECIFIED 10/04/2018 LYLA LANGE MD Ot F32.9 MAJOR DEPRESSIVE DISORDER, SINGLE EPISOD 10/04/2018 LYLA LANGE MD, Ot F41.9 ANXIETY DISORDER, UNSPECIFIED 10/04/2018 LYLA LANGE MD, Ot J45.9 09 UNSPECIFIED ASTHMA, UNCOMPLICATED 10/04/2018 LYLA LANGE MD, Ot K21.9 GASTRO-ESOPHAGEAL REFLUX DISEASE WITHOUT 10/04/2018 LYLA LANGE MD Ot L76.3 4 POSTPROC SEROMA OF SKIN, SUBCU FOLLOWING 10/04/2018 LYLA LANGE MD Ot R10.1 0 UPPER ABDOMINAL PAIN, UNSPECIFIED 10/04/2018 LYLA LANGE MD Ot R10.8 4 GENERALIZED ABDOMINAL PAIN 10/04/2018 LYLA LANGE MD Ot R51 HEADACHE 10/04/2018 LYLA LANGE MD, Ot Z87.8 91 PERSONAL HISTORY OF NICOTINE DEPENDENCE 10/04/2018 LYLA LANGE MD, Ot Z88.1 ALLERGY STATUS TO OTHER ANTIBIOTIC AGENT 10/04/2018 LYLA LANGE MD, Ot Z88.2 ALLERGY STATUS TO SULFONAMIDES STATUS 10/04/2018 LYLA LANGE MD Ot Z88.8 ALLERGY STATUS TO OTH DRUG/MEDS/BIOL SUB 10/04/2018 LYLA LANGE MD, Ot Z90.4 9 ACQUIRED ABSENCE OF OTHER SPECIFIED PART 10/04/2018 LYLA LANGE MD, Ot Z90.7 10 ACQUIRED ABSENCE OF BOTH CERVIX AND UTER 10/04/2018 LYLA LANGE MD, Ot Z90.8 9 ACQUIRED ABSENCE OF OTHER ORGANS 10/05/2018 LYLA LANGE MD, Ot E03.9 HYPOTHYROIDISM, UNSPECIFIED 10/05/2018 LYAL LANGE MD, Ot F32.9 MAJOR DEPRESSIVE DISORDER, SINGLE EPISOD 10/05/2018 LYLA LANGE MD, Ot F41.9 ANXIETY DISORDER, UNSPECIFIED 10/05/2018 LYLA LANGE MD, Ot J45.9 09 UNSPECIFIED ASTHMA, UNCOMPLICATED 10/05/2018 LYLA LANGE MD, Ot K21.9 GASTRO-ESOPHAGEAL REFLUX DISEASE WITHOUT 10/05/2018 LYLA LANGE MD, Ot L76.3 4 POSTPROC SEROMA OF SKIN, SUBCU FOLLOWING 10/05/2018 LYLA LANGE MD Ot R10.1 0 UPPER ABDOMINAL PAIN, UNSPECIFIED 10/05/2018 LYLA LANGE MD Ot R10.8 4 GENERALIZED ABDOMINAL PAIN 10/05/2018 LYLA LANGE MD Ot R51 HEADACHE 10/05/2018 LYLA LANGE MD, Ot Z87.8 91 PERSONAL HISTORY OF NICOTINE DEPENDENCE 10/05/2018 LYLA LANGE MD, Ot Z88.1 ALLERGY STATUS TO OTHER ANTIBIOTIC AGENT 10/05/2018 LYLA LANGE MD, Ot Z88.2 ALLERGY STATUS TO SULFONAMIDES STATUS 10/05/2018 LYLA LANGE MD, Ot Z88.8 ALLERGY STATUS TO OTH DRUG/MEDS/BIOL SUB 10/05/2018 LYLA LANGE MD, Ot Z90.4 9 ACQUIRED ABSENCE OF OTHER SPECIFIED PART 10/05/2018 LYLA LANGE MD, Ot Z90.7 10 ACQUIRED ABSENCE OF BOTH CERVIX AND UTER 10/05/2018 LYLA LANGE MD, Ot Z90.8 9 ACQUIRED ABSENCE OF OTHER ORGANS 11/03/2018 LYLA LANGE MD, Ot E03.9 HYPOTHYROIDISM, UNSPECIFIED 11/03/2018 LYLA LANGE MD, Ot F32.9 MAJOR DEPRESSIVE DISORDER, SINGLE EPISOD 11/03/2018 ENYART MD, LYLA E Ot F41.9 ANXIETY DISORDER, UNSPECIFIED 11/03/2018 LYLA LANGE MD, Ot J45.9 09 UNSPECIFIED ASTHMA, UNCOMPLICATED 11/03/2018 LYLA LANGE MD, Ot K21.9 GASTRO-ESOPHAGEAL REFLUX DISEASE WITHOUT 11/03/2018 LYLA LANGE MD Ot R00.2 PALPITATIONS 11/03/2018 LYLA LANGE MD Ot R07.9 CHEST PAIN, UNSPECIFIED 11/03/2018 LYLA LANGE MD Ot R42 DIZZINESS AND GIDDINESS 11/03/2018 LYLA LANGE MD Ot R55 SYNCOPE AND COLLAPSE 11/03/2018 LYLA LANGE MD, Ot Z87.8 91 PERSONAL HISTORY OF NICOTINE DEPENDENCE 11/03/2018 LYLA LANGE MD, Ot Z88.1 ALLERGY STATUS TO OTHER ANTIBIOTIC AGENT 11/03/2018 LYLA LANGE MD, Ot Z88.2 ALLERGY STATUS TO SULFONAMIDES STATUS 11/03/2018 LYLA LANGE MD, Ot Z88.8 ALLERGY STATUS TO OTH DRUG/MEDS/BIOL SUB 11/03/2018 LYLA LANGE MD, Ot Z90.4 9 ACQUIRED ABSENCE OF OTHER SPECIFIED PART 11/03/2018 LYLA LANGE MD, Ot Z90.7 10 ACQUIRED ABSENCE OF BOTH CERVIX AND UTER 11/03/2018 LYLA LANGE MD, Ot Z90.8 9 ACQUIRED ABSENCE OF OTHER ORGANS 11/08/2018 YUMIKO PUGH DO Ot E03.9 HYPOTHYROIDISM, UNSPECIFIED 11/08/2018 YUMIKO PUGH DO Ot F32.9 MAJOR DEPRESSIVE DISORDER, SINGLE EPISOD 11/08/2018 YUMIKO PUGH DO, Ot J45.909 UNSPECIFIED ASTHMA, UNCOMPLICATED 11/08/2018 YUMIKO PUGH DO Ot K21.9 GASTRO-ESOPHAGEAL REFLUX DISEASE WITHOUT 11/08/2018 YUMIKO PUGH DO Ot M41.9 SCOLIOSIS, UNSPECIFIED 11/08/2018 YUMIKO PUGH DO Ot R10.33 PERIUMBILICAL PAIN 11/08/2018 YUMIKO PUGH DO Ot Z87.19 PERSONAL HISTORY OF OTHER DISEASES OF TH 11/08/2018 YUMIKO PUGH DO Ot Z87.891 PERSONAL HISTORY OF NICOTINE DEPENDENCE 11/08/2018 YUMIKO PUGH DO Ot Z88.1 ALLERGY STATUS TO OTHER ANTIBIOTIC AGENT 11/08/2018 YUMIKO PUGH DO Ot Z88.2 ALLERGY STATUS TO SULFONAMIDES STATUS 11/08/2018 KEATON DO, YUMIKO Ot Z88.8 ALLERGY STATUS TO OTH DRUG/MEDS/BIOL SUB 11/08/2018 PUGH DO, YUMIKO Ot Z90.49 ACQUIRED ABSENCE OF OTHER SPECIFIED PART 11/08/2018 PUGH DO, YUMIKO Ot Z90.710 ACQUIRED ABSENCE OF BOTH CERVIX AND UTER 11/08/2018 PUGH DO, YUMIKO Ot Z98.890 OTHER SPECIFIED POSTPROCEDURAL STATES 11/10/2018 SIMÓN, ECTOR D BIAS 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 Ot R10.31 RIGHT LOWER QUADRANT PAIN 11/10/2018 SIMÓN, ECTOR D BIAS 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 Ot Z90.49 ACQUIRED ABSENCE OF OTHER SPECIFIED PART 11/10/2018 SIMÓN, ECTOR D BIAS 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 Ot Z98.890 OTHER SPECIFIED POSTPROCEDURAL STATES 11/14/2018 KEATON LACY YUMIKO Ot E03.9 HYPOTHYROIDISM, UNSPECIFIED 11/14/2018 PUGH DO, YUMIKO Ot F32.9 MAJOR DEPRESSIVE DISORDER, SINGLE EPISOD 11/14/2018 PUGH , YUMIKO Ot J45.909 UNSPECIFIED ASTHMA, UNCOMPLICATED 11/14/2018 PUGH YUMIKO Ot K21.9 GASTRO-ESOPHAGEAL REFLUX DISEASE WITHOUT 11/14/2018 PUGH DO, YUMIKO Ot M41.9 SCOLIOSIS, UNSPECIFIED 11/14/2018 PUGH DO, YUMIKO Ot R10.33 PERIUMBILICAL PAIN 11/14/2018 PUGH DO, YUMIKO Ot Z87.19 PERSONAL HISTORY OF OTHER DISEASES OF TH 11/14/2018 KEATON LACY, YUMIKO Ot Z87.891 PERSONAL HISTORY OF NICOTINE DEPENDENCE 11/14/2018 PUGH , YUMIKO Ot Z88.1 ALLERGY STATUS TO OTHER ANTIBIOTIC AGENT 11/14/2018 KEATON LACY, YUMIKO Ot Z88.2 ALLERGY STATUS TO SULFONAMIDES STATUS 11/14/2018 PUGH DO, YUMIKO Ot Z88.8 ALLERGY STATUS TO OTH DRUG/MEDS/BIOL SUB 11/14/2018 PUGH DO, YUMIKO Ot Z90.49 ACQUIRED ABSENCE OF OTHER SPECIFIED PART 11/14/2018 PUGH DO, YUMIKO Ot Z90.710 ACQUIRED ABSENCE OF BOTH CERVIX AND UTER 11/14/2018 PUGH DO, YUMIKO Ot Z98.890 OTHER SPECIFIED POSTPROCEDURAL STATES 11/28/2018 VEGA BAUGH MD Ot E03. 9 HYPOTHYROIDISM, UNSPECIFIED 11/28/2018 VEGA BAUGH MD Ot F32. 9 MAJOR DEPRESSIVE DISORDER, SINGLE EPISOD 11/28/2018 VEGA BAUGH MD Ot G89. 29 OTHER CHRONIC PAIN 11/28/2018 VEGA BAUGH MD Ot J45.909 UNSPECIFIED ASTHMA, UNCOMPLICATED 11/28/2018 VEGA BAUGH MD, Ot K21. 9 GASTRO-ESOPHAGEAL REFLUX DISEASE WITHOUT 11/28/2018 VEGA BAUGH MD Ot R10. 31 RIGHT LOWER QUADRANT PAIN 11/28/2018 VEGA BAUGH MD Ot Z87. 19 PERSONAL HISTORY OF OTHER DISEASES OF TH 11/28/2018 VEGA BAUGH MD Ot Z87.891 PERSONAL HISTORY OF NICOTINE DEPENDENCE 11/28/2018 VEGA BAUGH MD, Ot Z88. 1 ALLERGY STATUS TO OTHER ANTIBIOTIC AGENT 11/28/2018 VEGA BAUGH MD Ot Z88. 2 ALLERGY STATUS TO SULFONAMIDES STATUS 11/28/2018 VEGA BAUGH MD Ot Z88. 8 ALLERGY STATUS TO OTH DRUG/MEDS/BIOL SUB 11/28/2018 VEGA BAUGH MD Ot Z90. 49 ACQUIRED ABSENCE OF OTHER SPECIFIED PART 11/28/2018 VEGA BAUGH MD Ot Z90.710 ACQUIRED ABSENCE OF BOTH CERVIX AND UTER 11/28/2018 VEGA BAUGH MD Ot Z98.890 OTHER SPECIFIED POSTPROCEDURAL STATES 12/01/2018 VEGA BAUGH MD Ot E03. 9 HYPOTHYROIDISM, UNSPECIFIED 12/01/2018 VEGA BAUGH MD Ot F32. 9 MAJOR DEPRESSIVE DISORDER, SINGLE EPISOD 12/01/2018 VEGA BAUGH MD Ot G89. 29 OTHER CHRONIC PAIN 12/01/2018 VEGA BAUGH MD Ot J45.909 UNSPECIFIED ASTHMA, UNCOMPLICATED 12/01/2018 VEGA BAUGH MD, Ot K21. 9 GASTRO-ESOPHAGEAL REFLUX DISEASE WITHOUT 12/01/2018 VEGA BAUGH MD Ot R10. 31 RIGHT LOWER QUADRANT PAIN 12/01/2018 VEGA BAUGH MD Ot Z87. 19 PERSONAL HISTORY OF OTHER DISEASES OF TH 12/01/2018 VEGA BAUGH MD Ot Z87.891 PERSONAL HISTORY OF NICOTINE DEPENDENCE 12/01/2018 VEGA BAUGH MD Ot Z88. 1 ALLERGY STATUS TO OTHER ANTIBIOTIC AGENT 12/01/2018 VEGA BAUGH MD Ot Z88. 2 ALLERGY STATUS TO SULFONAMIDES STATUS 12/01/2018 VEGA BAUGH MD Ot Z88. 8 ALLERGY STATUS TO OTH DRUG/MEDS/BIOL SUB 12/01/2018 VEGA BAUGH MD Ot Z90. 49 ACQUIRED ABSENCE OF OTHER SPECIFIED PART 12/01/2018 VEGA BAUGH MD Ot Z90.710 ACQUIRED ABSENCE OF BOTH CERVIX AND UTER 12/01/2018 VEGA BAUGH MD Ot Z98.890 OTHER SPECIFIED POSTPROCEDURAL STATES 12/04/2018 LYLA LANGE MD Ot E03.9 HYPOTHYROIDISM, UNSPECIFIED 12/04/2018 LYLA LANGE MD Ot F32.9 MAJOR DEPRESSIVE DISORDER, SINGLE EPISOD 12/04/2018 LYLA LANGE MD Ot J45.9 09 UNSPECIFIED ASTHMA, UNCOMPLICATED 12/04/2018 LYLA LANGE MD, Ot K21.9 GASTRO-ESOPHAGEAL REFLUX DISEASE WITHOUT 12/04/2018 LYLA LANGE MD Ot K43.9 VENTRAL HERNIA WITHOUT OBSTRUCTION OR GA 12/04/2018 LYLA LANGE MD Ot L76.3 4 POSTPROC SEROMA OF SKIN, SUBCU FOLLOWING 12/04/2018 LYLA LANGE MD Ot M41.9 SCOLIOSIS, UNSPECIFIED 12/04/2018 LYLA LANGE MD Ot R10.9 UNSPECIFIED ABDOMINAL PAIN 12/04/2018 LYLA LANGE MD Ot Z87.1 9 PERSONAL HISTORY OF OTHER DISEASES OF TH 12/04/2018 LYLA LANGE MD Ot Z87.8 91 PERSONAL HISTORY OF NICOTINE DEPENDENCE 12/04/2018 LYLA LANGE MD, Ot Z88.1 ALLERGY STATUS TO OTHER ANTIBIOTIC AGENT 12/04/2018 LYLA LANGE MD Ot Z88.2 ALLERGY STATUS TO SULFONAMIDES STATUS 12/04/2018 LYLA LANGE MD Ot Z88.8 ALLERGY STATUS TO OTH DRUG/MEDS/BIOL SUB 12/04/2018 LYLA LANGE MD Ot Z90.4 9 ACQUIRED ABSENCE OF OTHER SPECIFIED PART 12/04/2018 LYLA LANGE MD Ot Z90.7 10 ACQUIRED ABSENCE OF BOTH CERVIX AND UTER 12/04/2018 LYLA LANGE MD Ot Z98.8 90 OTHER SPECIFIED POSTPROCEDURAL STATES 12/05/2018 CLEMENTINE IGNACIO, BERNA Xie Ot M19.0 41 PRIMARY OSTEOARTHRITIS, RIGHT HAND 12/05/2018 CLEMENTINE IGNACIO, BERNA Xie Ot M19.0 42 PRIMARY OSTEOARTHRITIS, LEFT HAND 12/05/2018 ELAINA RAMÍREZ Ot M12.9 ARTHROPATHY, UNSPECIFIED 12/05/2018 ELAINA RAMÍREZ Ot M51.36 OTHER INTERVERTEBRAL DISC DEGENERATION, 12/05/2018 PASSAIC DO, YUMIKO Ot E03.9 HYPOTHYROIDISM, UNSPECIFIED 12/05/2018 PASSAIC DO, YUMIKO Ot F32.9 MAJOR DEPRESSIVE DISORDER, SINGLE EPISOD 12/05/2018 PASSAIC DO, YUMIKO Ot G89.29 OTHER CHRONIC PAIN 12/05/2018 PASSAIC DO, YUMIKO Ot J45.909 UNSPECIFIED ASTHMA, UNCOMPLICATED 12/05/2018 PASSAIC DO, YUMIKO Ot K21.9 GASTRO-ESOPHAGEAL REFLUX DISEASE WITHOUT 12/05/2018 [facility], YUMIKO Ot R10.31 RIGHT LOWER QUADRANT PAIN 12/05/2018 [facility], YUMIKO Ot R60.0 LOCALIZED EDEMA 12/05/2018 [facility], YUMIKO Ot Z87.19 PERSONAL HISTORY OF OTHER DISEASES OF TH 12/05/2018 [facility], YUMIKO Ot Z87.891 PERSONAL HISTORY OF NICOTINE DEPENDENCE 12/05/2018 [facility], [place] Ot Z88.1 ALLERGY STATUS TO OTHER ANTIBIOTIC AGENT 12/05/2018 [facility], [place]UM[place]KO Ot Z88.2 ALLERGY STATUS TO SULFONAMIDES STATUS 12/05/2018 [facility], [place]UM[place]KO Ot Z88.8 ALLERGY STATUS TO OTH DRUG/MEDS/BIOL SUB 12/05/2018 [facility], [place]UM[place]KO Ot Z90.49 ACQUIRED ABSENCE OF OTHER SPECIFIED PART 12/05/2018 [facility], [place]UM[place]KO Ot Z90.710 ACQUIRED ABSENCE OF BOTH CERVIX AND UTER 12/05/2018 [facility], [place] Ot Z98.890 OTHER SPECIFIED POSTPROCEDURAL STATES 12/07/2018 ANISA IGNACIO, LYLA Murphy Ot E03.9 HYPOTHYROIDISM, UNSPECIFIED 12/07/2018 LYLA LANGE MD Ot F32.9 MAJOR DEPRESSIVE DISORDER, SINGLE EPISOD 12/07/2018 LYLA LANGE MD Ot J45.9 09 UNSPECIFIED ASTHMA, UNCOMPLICATED 12/07/2018 LYLA ALNGE MD Ot K21.9 GASTRO-ESOPHAGEAL REFLUX DISEASE WITHOUT 12/07/2018 LYLA LANGE MD Ot K43.9 VENTRAL HERNIA WITHOUT OBSTRUCTION OR GA 12/07/2018 LYLA LANGE MD Ot L76.3 4 POSTPROC SEROMA OF SKIN, SUBCU FOLLOWING 12/07/2018 LYLA LANGE MD Ot M41.9 SCOLIOSIS, UNSPECIFIED 12/07/2018 LYLA LANGE MD Ot R10.9 UNSPECIFIED ABDOMINAL PAIN 12/07/2018 LYLA LANGE MD Ot Z87.1 9 PERSONAL HISTORY OF OTHER DISEASES OF TH 12/07/2018 LYLA LANGE MD Ot Z87.8 91 PERSONAL HISTORY OF NICOTINE DEPENDENCE 12/07/2018 LYLA LANGE MD Ot Z88.1 ALLERGY STATUS TO OTHER ANTIBIOTIC AGENT 12/07/2018 LYLA LANGE MD Ot Z88.2 ALLERGY STATUS TO SULFONAMIDES STATUS 12/07/2018 LYLA LANGE MD Ot Z88.8 ALLERGY STATUS TO OTH DRUG/MEDS/BIOL SUB 12/07/2018 LYLA LANGE MD Ot Z90.4 9 ACQUIRED ABSENCE OF OTHER SPECIFIED PART 12/07/2018 LYLA LANGE MD Ot Z90.7 10 ACQUIRED ABSENCE OF BOTH CERVIX AND UTER 12/07/2018 LYLA LANGE MD Ot Z98.8 90 OTHER SPECIFIED POSTPROCEDURAL STATES 12/08/2018 YUMIKO PUGH DO Ot E03.9 HYPOTHYROIDISM, UNSPECIFIED 12/08/2018 YUMIKO PUGH DO Ot F32.9 MAJOR DEPRESSIVE DISORDER, SINGLE EPISOD 12/08/2018 YUMIKO PUGH DO Ot G89.29 OTHER CHRONIC PAIN 12/08/2018 YUMIKO PUGH DO Ot J45.909 UNSPECIFIED ASTHMA, UNCOMPLICATED 12/08/2018 YUMIKO PUGH DO Ot K21.9 GASTRO-ESOPHAGEAL REFLUX DISEASE WITHOUT 12/08/2018 YUMIKO PUGH DO Ot R10.31 RIGHT LOWER QUADRANT PAIN 12/08/2018 KEATON LACY YUM[place]KO Ot R60.0 LOCALIZED EDEMA 12/08/2018 YUMIKO PUGH DO Ot Z87.19 PERSONAL HISTORY OF OTHER DISEASES OF TH 12/08/2018 YUMIKO PUGH DO Ot Z87.891 PERSONAL HISTORY OF NICOTINE DEPENDENCE 12/08/2018 YUMIKO PUGH DO Ot Z88.1 ALLERGY STATUS TO OTHER ANTIBIOTIC AGENT 12/08/2018 YUMIKO PUGH DO Ot Z88.2 ALLERGY STATUS TO SULFONAMIDES STATUS 12/08/2018 YUMIKO PUGH DO Ot Z88.8 ALLERGY STATUS TO OTH DRUG/MEDS/BIOL SUB 12/08/2018 YUMIKO PUGH DO Ot Z90.49 ACQUIRED ABSENCE OF OTHER SPECIFIED PART 12/08/2018 PUGH DO, YUMIKO Ot Z90.710 ACQUIRED ABSENCE OF BOTH CERVIX AND UTER 12/08/2018 PUGH YUMIKO LACY Ot Z98.890 OTHER SPECIFIED POSTPROCEDURAL STATES 12/13/2018 ANISA IGNACIO, LYLA Murphy Ot K43.2 INCISIONAL HERNIA WITHOUT OBSTRUCTION OR 12/13/2018 LYLA LANGE MD Ot L76.3 4 POSTPROC SEROMA OF SKIN, SUBCU FOLLOWING 12/13/2018 ELAINA RAMÍREZ Ot G47.00 INSOMNIA, UNSPECIFIED 12/13/2018 ELAINA RAMÍREZ Ot G47.33 OBSTRUCTIVE SLEEP APNEA (ADULT) (PEDIATR 12/13/2018 ELAINA RAMÍREZ Ot G47.00 INSOMNIA, UNSPECIFIED 12/13/2018 ELAINA RAMÍREZ Ot G47.33 OBSTRUCTIVE SLEEP APNEA (ADULT) (PEDIATR 01/02/2019 LYLA LANGE MD Ot K43.2 INCISIONAL HERNIA WITHOUT OBSTRUCTION OR 01/02/2019 LYLA LANGE MD Ot L76.3 4 POSTPROC SEROMA OF SKIN, SUBCU FOLLOWING 01/08/2019 EVARISTO CORTES MD Ot E03. 9 HYPOTHYROIDISM, UNSPECIFIED 01/08/2019 EVARISTO CORTES MD Ot F32. 9 MAJOR DEPRESSIVE DISORDER, SINGLE EPISOD 01/08/2019 EVARISTO CORTES MD Ot J45.909 UNSPECIFIED ASTHMA, UNCOMPLICATED 01/08/2019 EVARISTO CORTES MD Ot K21. 9 GASTRO-ESOPHAGEAL REFLUX DISEASE WITHOUT 01/08/2019 EVARISTO CORTES MD Ot R07. 89 OTHER CHEST PAIN 01/08/2019 EVARISTO CORTES MD Ot R07. 9 CHEST PAIN, UNSPECIFIED 01/08/2019 EVARISTO CORTES MD Ot Z87.891 PERSONAL HISTORY OF NICOTINE DEPENDENCE 01/08/2019 EVARISTO CORTES MD Ot Z88. 1 ALLERGY STATUS TO OTHER ANTIBIOTIC AGENT 01/08/2019 EVARISTO CORTES MD Ot Z88. 2 ALLERGY STATUS TO SULFONAMIDES STATUS 01/08/2019 EVARISTO CORTES MD Ot Z88. 8 ALLERGY STATUS TO OTH DRUG/MEDS/BIOL SUB 01/08/2019 EVARISTO CORTES MD Ot Z90. 49 ACQUIRED ABSENCE OF OTHER SPECIFIED PART 01/08/2019 EVARISTO CORTES MD Ot Z90.710 ACQUIRED ABSENCE OF BOTH CERVIX AND UTER 01/13/2019 SOPHIA IGNACIO, EVARISTO Waterman Ot E03. 9 HYPOTHYROIDISM, UNSPECIFIED 01/13/2019 SOPHIA IGNACIO, EVARISTO Waterman Ot F32. 9 MAJOR DEPRESSIVE DISORDER, SINGLE EPISOD 01/13/2019 SOPHIA IGNACIO, EVARISTO Waterman Ot J45.909 UNSPECIFIED ASTHMA, UNCOMPLICATED 01/13/2019 SOPHIA IGNACIO, EVARISTO Waterman Ot K21. 9 GASTRO-ESOPHAGEAL REFLUX DISEASE WITHOUT 01/13/2019 SOPHIA IGNACIO, EVARISTO Waterman Ot R07. 89 OTHER CHEST PAIN 01/13/2019 SOPHIA IGNACIO, EVARISTO Waterman Ot R07. 9 CHEST PAIN, UNSPECIFIED 01/13/2019 SOPHIA IGNACIO, EVARISTO Waterman Ot Z87.891 PERSONAL HISTORY OF NICOTINE DEPENDENCE 01/13/2019 SOPHIA IGNACIO, EVARISTO Waterman Ot Z88. 1 ALLERGY STATUS TO OTHER ANTIBIOTIC AGENT 01/13/2019 SOPHAI IGNACIO, EVARISTO Waterman Ot Z88. 2 ALLERGY STATUS TO SULFONAMIDES STATUS 01/13/2019 SOPHIA IGNACIO, EVARISTO Waterman Ot Z88. 8 ALLERGY STATUS TO OTH DRUG/MEDS/BIOL SUB 01/13/2019 SOPHIA IGNACIO, EVARISTO Waterman Ot Z90. 49 ACQUIRED ABSENCE OF OTHER SPECIFIED PART 01/13/2019 SOPHIA IGNACIO, EVARISTO Waterman Ot Z90.710 ACQUIRED ABSENCE OF BOTH CERVIX AND UTER 01/24/2019 LANDEN CHAVIS DO Ot E03.9 HYPOTHYROIDISM, UNSPECIFIED 01/24/2019 LANDEN CHAVIS DO Ot F32.9 MAJOR DEPRESSIVE DISORDER, SINGLE EPISOD 01/24/2019 LANDEN CHAVIS DO Ot J45.909 UNSPECIFIED ASTHMA, UNCOMPLICATED 01/24/2019 LANDEN CHAVIS DO Ot K21.9 GASTRO-ESOPHAGEAL REFLUX DISEASE WITHOUT 01/24/2019 LANDEN CHAVIS DO Ot R5 1 HEADACHE 01/24/2019 LANDEN CHAVIS DO Ot Z87.891 PERSONAL HISTORY OF NICOTINE DEPENDENCE 01/24/2019 LANDEN CHAVIS DO Ot Z88.2 ALLERGY STATUS TO SULFONAMIDES STATUS 01/24/2019 LANDEN CHAVIS DO Ot Z88.8 ALLERGY STATUS TO OTH DRUG/MEDS/BIOL SUB 01/24/2019 LANDEN CHAVIS DO Ot Z90.49 ACQUIRED ABSENCE OF OTHER SPECIFIED PART 01/24/2019 LANDEN CHAVIS DO Ot Z90.710 ACQUIRED ABSENCE OF BOTH CERVIX AND UTER 01/27/2019 LANDEN CHAVIS DO Ot E03.9 HYPOTHYROIDISM, UNSPECIFIED 01/27/2019 LANDEN CHAVIS DO Ot F32.9 MAJOR DEPRESSIVE DISORDER, SINGLE EPISOD 01/27/2019 PARTHA LACY, LANDEN Lerner Ot J45.909 UNSPECIFIED ASTHMA, UNCOMPLICATED 01/27/2019 PARTHA LANDEN LACY Ot K21.9 GASTRO-ESOPHAGEAL REFLUX DISEASE WITHOUT 01/27/2019 LANDEN CHAVIS DO Ot R5 1 HEADACHE 01/27/2019 PARTHA DO, LANDEN Lerner Ot Z87.891 PERSONAL HISTORY OF NICOTINE DEPENDENCE 01/27/2019 LANDEN CHAVIS DO Ot Z88.2 ALLERGY STATUS TO SULFONAMIDES STATUS 01/27/2019 LANDEN CHAVIS DO Ot Z88.8 ALLERGY STATUS TO OTH DRUG/MEDS/BIOL SUB 01/27/2019 LANDEN CHAVIS DO Ot Z90.49 ACQUIRED ABSENCE OF OTHER SPECIFIED PART 01/27/2019 LANDEN CHAVIS DO Ot Z90.710 ACQUIRED ABSENCE OF BOTH CERVIX AND UTER 01/30/2019 LANDEN CHAVIS DO Ot E03.9 HYPOTHYROIDISM, UNSPECIFIED 01/30/2019 PARTHA LACY, LANDEN Lerner Ot F32.9 MAJOR DEPRESSIVE DISORDER, SINGLE EPISOD 01/30/2019 LANDEN CHAVIS DO Ot J45.909 UNSPECIFIED ASTHMA, UNCOMPLICATED 01/30/2019 LANDEN CHAVIS DO Ot K21.9 GASTRO-ESOPHAGEAL REFLUX DISEASE WITHOUT 01/30/2019 LANDEN CHAVIS DO Ot R5 1 HEADACHE 01/30/2019 LANDEN CHAVIS DO Ot Z87.891 PERSONAL HISTORY OF NICOTINE DEPENDENCE 01/30/2019 LANDEN CHAVIS DO Ot Z88.2 ALLERGY STATUS TO SULFONAMIDES STATUS 01/30/2019 LANDEN CHAVIS DO Ot Z88.8 ALLERGY STATUS TO OTH DRUG/MEDS/BIOL SUB 01/30/2019 LANDEN CHAVIS DO Ot Z90.49 ACQUIRED ABSENCE OF OTHER SPECIFIED PART 01/30/2019 LANDEN CHAVIS DO Ot Z90.710 ACQUIRED ABSENCE OF BOTH CERVIX AND UTER 01/30/2019 KUMAR DO, JUAN L Ot B34.9 VIRAL INFECTION, UNSPECIFIED 01/30/2019 KUMAR DO, JUAN L Ot E03.9 HYPOTHYROIDISM, UNSPECIFIED 01/30/2019 KUMAR DO, JUAN L Ot F32.9 MAJOR DEPRESSIVE DISORDER, SINGLE EPISOD 01/30/2019 KUMAR DO, JUAN L Ot J45.9 09 UNSPECIFIED ASTHMA, UNCOMPLICATED 01/30/2019 KUMAR DO, JUAN L Ot K21.9 GASTRO-ESOPHAGEAL REFLUX DISEASE WITHOUT 01/30/2019 KUMAR DO, JUAN L Ot R42 DIZZINESS AND GIDDINESS 01/30/2019 KUMAR DO, JUAN L Ot Z87.8 91 PERSONAL HISTORY OF NICOTINE DEPENDENCE 01/30/2019 KUMAR DO JUAN L Ot Z88.1 ALLERGY STATUS TO OTHER ANTIBIOTIC AGENT 01/30/2019 KUMAR DO, JUAN L Ot Z88.2 ALLERGY STATUS TO SULFONAMIDES STATUS 01/30/2019 KUMAR DO, JUAN L Ot Z90.4 9 ACQUIRED ABSENCE OF OTHER SPECIFIED PART 01/30/2019 KUMAR DO, JUAN L Ot Z90.7 10 ACQUIRED ABSENCE OF BOTH CERVIX AND UTER 02/13/2019 WILLIAM DE LA VEGA DO Ot E03. 9 HYPOTHYROIDISM, UNSPECIFIED 02/13/2019 WILLIAM DE LA VEGA DO Ot E66. 01 MORBID (SEVERE) OBESITY DUE TO EXCESS CA 02/13/2019 WILLIAM DE LA VEGA DO Ot F32. 9 MAJOR DEPRESSIVE DISORDER, SINGLE EPISOD 02/13/2019 WILLIAM DE LA VEGA DO Ot J45.909 UNSPECIFIED ASTHMA, UNCOMPLICATED 02/13/2019 WILLIAM DE LA VEGA DO Ot K21. 9 GASTRO-ESOPHAGEAL REFLUX DISEASE WITHOUT 02/13/2019 WILLIAM DE LA VEGA DO Ot M79.662 PAIN IN LEFT LOWER LEG 02/13/2019 WILLIAM DE LA VEGA DO Ot S89.92XA UNSPECIFIED INJURY OF LEFT LOWER LEG, IN 02/13/2019 WILLIAM DE LA VEGA DO Ot W17.89XA OTHER FALL FROM ONE LEVEL TO ANOTHER, IN 02/13/2019 WILLIAM DE LA VEGA DO Ot Z68. 43 BODY MASS INDEX (BMI) 50-59.9, ADULT 02/13/2019 WILLIAM DE LA VEGA DO Ot Z87.891 PERSONAL HISTORY OF NICOTINE DEPENDENCE 02/13/2019 WILLIAM DE LA VEGA DO Ot Z88. 1 ALLERGY STATUS TO OTHER ANTIBIOTIC AGENT 02/13/2019 WILLIAM DE LA VEGA DO Ot Z88. 2 ALLERGY STATUS TO SULFONAMIDES STATUS 02/13/2019 WILLIAM DE LA VEGA DO Ot Z88. 8 ALLERGY STATUS TO OTH DRUG/MEDS/BIOL SUB 02/13/2019 WILLIAM DE LA VEGA DO Ot Z90.710 ACQUIRED ABSENCE OF BOTH CERVIX AND UTER 02/13/2019 WILLIAM DE LA VEGA DO Ot Z98.890 OTHER SPECIFIED POSTPROCEDURAL STATES 02/20/2019 LYLA LANGE MD Ot E03.9 HYPOTHYROIDISM, UNSPECIFIED 02/20/2019 LYLA LANGE MD Ot F32.9 MAJOR DEPRESSIVE DISORDER, SINGLE EPISOD 02/20/2019 LYLA LANGE MD Ot G89.1 8 OTHER ACUTE POSTPROCEDURAL PAIN 02/20/2019 LYLA LANGE MD Ot J45.9 09 UNSPECIFIED ASTHMA, UNCOMPLICATED 02/20/2019 LYLA LANGE MD Ot K21.9 GASTRO-ESOPHAGEAL REFLUX DISEASE WITHOUT 02/20/2019 LYLA LANGE MD Ot R10.3 0 LOWER ABDOMINAL PAIN, UNSPECIFIED 02/20/2019 LYLA LANGE MD Ot R11.0 NAUSEA 02/20/2019 LYLA LANGE MD Ot Z87.8 91 PERSONAL HISTORY OF NICOTINE DEPENDENCE 02/20/2019 LYLA LANGE MD Ot Z88.1 ALLERGY STATUS TO OTHER ANTIBIOTIC AGENT 02/20/2019 LYLA LANGE MD Ot Z88.2 ALLERGY STATUS TO SULFONAMIDES STATUS 02/20/2019 LYLA LANGE MD Ot Z88.8 ALLERGY STATUS TO OTH DRUG/MEDS/BIOL SUB 02/20/2019 LYLA LANGE MD Ot Z90.4 9 ACQUIRED ABSENCE OF OTHER SPECIFIED PART 02/20/2019 LYLA LANGE MD Ot Z90.7 10 ACQUIRED ABSENCE OF BOTH CERVIX AND UTER 03/06/2019 ELEN POLLACK MD Ot E03. 9 HYPOTHYROIDISM, UNSPECIFIED 03/06/2019 ELEN POLLACK MD Ot F32. 9 MAJOR DEPRESSIVE DISORDER, SINGLE EPISOD 03/06/2019 ELEN POLLACK MD Ot J45.909 UNSPECIFIED ASTHMA, UNCOMPLICATED 03/06/2019 ELEN POLLACK MD Ot K21. 9 GASTRO-ESOPHAGEAL REFLUX DISEASE WITHOUT 03/06/2019 ELEN POLLACK MD Ot K91.873 POSTPROC SEROMA OF A DGSTV SYS ORG FOLLO 03/06/2019 RANJEET MD, ELEN J Ot K94. 13 ENTEROSTOMY MALFUNCTION 03/06/2019 ELEN POLLACK MD J Ot Z87.891 PERSONAL HISTORY OF NICOTINE DEPENDENCE 03/06/2019 ELEN POLLACK MD Ot Z88. 1 ALLERGY STATUS TO OTHER ANTIBIOTIC AGENT 03/06/2019 ELEN POLLACK MD J Ot Z88. 2 ALLERGY STATUS TO SULFONAMIDES STATUS 03/06/2019 ELEN POLLACK MD J Ot Z88. 8 ALLERGY STATUS TO OTH DRUG/MEDS/BIOL SUB 03/06/2019 ELEN POLLACK MD J Ot Z90. 49 ACQUIRED ABSENCE OF OTHER SPECIFIED PART 03/06/2019 ELEN POLLACK MD Ot Z90.710 ACQUIRED ABSENCE OF BOTH CERVIX AND UTER 03/09/2019 ELEN POLLACK MD Ot E03. 9 HYPOTHYROIDISM, UNSPECIFIED 03/09/2019 ELEN POLLACK MD Ot F32. 9 MAJOR DEPRESSIVE DISORDER, SINGLE EPISOD 03/09/2019 ELEN POLLACK MD Ot J45.909 UNSPECIFIED ASTHMA, UNCOMPLICATED 03/09/2019 ELEN POLLACK MD Ot K21. 9 GASTRO-ESOPHAGEAL REFLUX DISEASE WITHOUT 03/09/2019 ELEN POLLACK MD Ot K91.873 POSTPROC SEROMA OF A DGSTV SYS ORG FOLLO 03/09/2019 ELEN POLLACK MD Ot K94. 13 ENTEROSTOMY MALFUNCTION 03/09/2019 ELEN POLLACK MD Ot Z87.891 PERSONAL HISTORY OF NICOTINE DEPENDENCE 03/09/2019 ELEN POLLACK MD Ot Z88. 1 ALLERGY STATUS TO OTHER ANTIBIOTIC AGENT 03/09/2019 ELEN POLLACK MD Ot Z88. 2 ALLERGY STATUS TO SULFONAMIDES STATUS 03/09/2019 ELEN POLLACK MD Ot Z88. 8 ALLERGY STATUS TO OTH DRUG/MEDS/BIOL SUB 03/09/2019 ELEN POLLACK MD Ot Z90. 49 ACQUIRED ABSENCE OF OTHER SPECIFIED PART 03/09/2019 ELEN POLLACK MD Ot Z90.710 ACQUIRED ABSENCE OF BOTH CERVIX AND UTER 03/12/2019 ELEN POLLACK MD Ot E03. 9 HYPOTHYROIDISM, UNSPECIFIED 03/12/2019 ELEN POLLACK MD Ot F32. 9 MAJOR DEPRESSIVE DISORDER, SINGLE EPISOD 03/12/2019 ELEN POLLACK MD Ot J45.909 UNSPECIFIED ASTHMA, UNCOMPLICATED 03/12/2019 ELEN POLLACK MD Ot K21. 9 GASTRO-ESOPHAGEAL REFLUX DISEASE WITHOUT 03/12/2019 ELEN POLLACK MD Ot K91.873 POSTPROC SEROMA OF A DGSTV SYS ORG FOLLO 03/12/2019 ELEN POLLACK MD Ot K94. 13 ENTEROSTOMY MALFUNCTION 03/12/2019 ELEN POLLACK MD Ot Z87.891 PERSONAL HISTORY OF NICOTINE DEPENDENCE 03/12/2019 ELEN POLLACK MD Ot Z88. 1 ALLERGY STATUS TO OTHER ANTIBIOTIC AGENT 03/12/2019 ELEN POLLACK MD Ot Z88. 2 ALLERGY STATUS TO SULFONAMIDES STATUS 03/12/2019 ELEN POLLACK MD Ot Z88. 8 ALLERGY STATUS TO OTH DRUG/MEDS/BIOL SUB 03/12/2019 ELEN POLLACK MD Ot Z90. 49 ACQUIRED ABSENCE OF OTHER SPECIFIED PART 03/12/2019 ELEN POLLACK MD Ot Z90.710 ACQUIRED ABSENCE OF BOTH CERVIX AND UTER 04/21/2019 WILLIAM DE LA VEGA DO Ot E03. 9 HYPOTHYROIDISM, UNSPECIFIED 04/21/2019 WILLIAM DE LA VEGA DO Ot F32. 9 MAJOR DEPRESSIVE DISORDER, SINGLE EPISOD 04/21/2019 WILLIAM DE LA VEGA DO Ot J45.909 UNSPECIFIED ASTHMA, UNCOMPLICATED 04/21/2019 WILLIAM DE LA VEGA DO Ot K21. 9 GASTRO-ESOPHAGEAL REFLUX DISEASE WITHOUT 04/21/2019 WILLIAM DE LA VEGA DO Ot L76. 34 POSTPROC SEROMA OF SKIN, SUBCU FOLLOWING 04/21/2019 WILLIAM DE LA VEGA DO Ot R10. 13 EPIGASTRIC PAIN 04/21/2019 WILLIAM DE LA VEGA DO Ot Z87.891 PERSONAL HISTORY OF NICOTINE DEPENDENCE 04/21/2019 WILLIAM DE LA VEGA DO Ot Z88. 1 ALLERGY STATUS TO OTHER ANTIBIOTIC AGENT 04/21/2019 WILLIAM DE LA VEGA DO Ot Z88. 2 ALLERGY STATUS TO SULFONAMIDES STATUS 04/21/2019 WILLIAM DE LA VEGA DO Ot Z88. 8 ALLERGY STATUS TO OTH DRUG/MEDS/BIOL SUB 04/21/2019 WILLIAM DE LA VEGA DO Ot Z90. 49 ACQUIRED ABSENCE OF OTHER SPECIFIED PART 04/21/2019 WILLIAM DE LA VEGA DO Ot Z90.710 ACQUIRED ABSENCE OF BOTH CERVIX AND UTER 04/21/2019 YOLETTE WILLIAM LACY Ot Z98.890 OTHER SPECIFIED POSTPROCEDURAL STATES 05/02/2019 CONRADO ESPINO DO Ot E03 .9 HYPOTHYROIDISM, UNSPECIFIED 05/02/2019 CONRADO ESPINO DO Ot F32 .9 MAJOR DEPRESSIVE DISORDER, SINGLE EPISOD 05/02/2019 CONRADO ESPINO DO Ot J45.909 UNSPECIFIED ASTHMA, UNCOMPLICATED 05/02/2019 CONRADO ESPINO DO Ot K21 .9 GASTRO-ESOPHAGEAL REFLUX DISEASE WITHOUT 05/02/2019 CONRADO ESPINO DO Ot M25.50 PAIN IN UNSPECIFIED JOINT 05/02/2019 CONRADO ESPINO DO Ot R10 .9 UNSPECIFIED ABDOMINAL PAIN 05/02/2019 CONRADO ESPINO DO, Ot Z87.891 PERSONAL HISTORY OF NICOTINE DEPENDENCE 05/02/2019 CONRADO ESPINO DO Ot Z88 .1 ALLERGY STATUS TO OTHER ANTIBIOTIC AGENT 05/02/2019 CONRADO ESPINO DO Ot Z88 .2 ALLERGY STATUS TO SULFONAMIDES STATUS 05/02/2019 CONRADO ESPINO DO, Ot Z88 .8 ALLERGY STATUS TO OTH DRUG/MEDS/BIOL SUB 05/02/2019 CONRADO ESPINO DO Ot Z90.49 ACQUIRED ABSENCE OF OTHER SPECIFIED PART 05/02/2019 CONRADO ESPINO DO Ot Z90.710 ACQUIRED ABSENCE OF BOTH CERVIX AND UTER 05/13/2019 VEGA BAUGH MD Ot E03. 9 HYPOTHYROIDISM, UNSPECIFIED 05/13/2019 VEGA BAUGH MD Ot E66. 01 MORBID (SEVERE) OBESITY DUE TO EXCESS CA 05/13/2019 VEGA BAUGH MD, Ot F32. 9 MAJOR DEPRESSIVE DISORDER, SINGLE EPISOD 05/13/2019 VEGA BAUGH MD, Ot J45.909 UNSPECIFIED ASTHMA, UNCOMPLICATED 05/13/2019 VEGA BAUGH MD, Ot K21. 9 GASTRO-ESOPHAGEAL REFLUX DISEASE WITHOUT 05/13/2019 VEGA BAUGH MD Ot R07. 89 OTHER CHEST PAIN 05/13/2019 VEGA BAUGH MD, Ot R07. 9 CHEST PAIN, UNSPECIFIED 05/13/2019 VEGA BAUGH MD, Ot R51 HEADACHE 05/13/2019 VEGA BAUGH MD, Ot R53. 83 OTHER FATIGUE 05/13/2019 VEGA BAUGH MD, Ot Z68. 43 BODY MASS INDEX (BMI) 50.0-59.9, ADULT 05/13/2019 VEGA BAUGH MD, Ot Z87.891 PERSONAL HISTORY OF NICOTINE DEPENDENCE 05/13/2019 VEGA BAUGH MD, Ot Z88. 1 ALLERGY STATUS TO OTHER ANTIBIOTIC AGENT 05/13/2019 VEGA BAUGH MD, Ot Z88. 2 ALLERGY STATUS TO SULFONAMIDES STATUS 05/13/2019 VEGA BAUGH MD, Ot Z88. 8 ALLERGY STATUS TO OTH DRUG/MEDS/BIOL SUB 05/13/2019 VEGA BAUGH MD Ot Z90. 49 ACQUIRED ABSENCE OF OTHER SPECIFIED PART 05/13/2019 VEGA BAUGH MD, Ot Z90.710 ACQUIRED ABSENCE OF BOTH CERVIX AND UTER 05/13/2019 VEGA BAUGH MD Ot Z95. 9 PRESENCE OF CARDIAC AND VASCULAR IMPLANT 05/16/2019 VEGA BAUGH MD, Ot E03. 9 HYPOTHYROIDISM, UNSPECIFIED 05/16/2019 VEGA BAUGH MD Ot E66. 01 MORBID (SEVERE) OBESITY DUE TO EXCESS CA 05/16/2019 VEGA BAUGH MD Ot F32. 9 MAJOR DEPRESSIVE DISORDER, SINGLE EPISOD 05/16/2019 VEGA BAUGH MD, Ot J45.909 UNSPECIFIED ASTHMA, UNCOMPLICATED 05/16/2019 VEGA BAUGH MD, Ot K21. 9 GASTRO-ESOPHAGEAL REFLUX DISEASE WITHOUT 05/16/2019 VEGA BAUGH MD Ot R07. 89 OTHER CHEST PAIN 05/16/2019 VEGA BAUGH MD Ot R07. 9 CHEST PAIN, UNSPECIFIED 05/16/2019 VEGA BAUGH MD Ot R51 HEADACHE 05/16/2019 VEGA BAUGH MD Ot R53. 83 OTHER FATIGUE 05/16/2019 VEGA BAUGH MD, Ot Z68. 43 BODY MASS INDEX (BMI) 50.0-59.9, ADULT 05/16/2019 VEGA BAUGH MD, Ot Z87.891 PERSONAL HISTORY OF NICOTINE DEPENDENCE 05/16/2019 VEGA BAUGH MD, Ot Z88. 1 ALLERGY STATUS TO OTHER ANTIBIOTIC AGENT 05/16/2019 VEGA BAUGH MD, Ot Z88. 2 ALLERGY STATUS TO SULFONAMIDES STATUS 05/16/2019 VEGA BAUGH MD, Ot Z88. 8 ALLERGY STATUS TO OTH DRUG/MEDS/BIOL SUB 05/16/2019 AMAURI IGNACIO, VEGA West Ot Z90. 49 ACQUIRED ABSENCE OF OTHER SPECIFIED PART 05/16/2019 VEGA BAUGH MD Ot Z90.710 ACQUIRED ABSENCE OF BOTH CERVIX AND UTER 05/16/2019 VEGA BAUGH MD Ot Z95. 9 PRESENCE OF CARDIAC AND VASCULAR IMPLANT 06/08/2019 LYLA LANGE MD, Ot E03.9 HYPOTHYROIDISM, UNSPECIFIED 06/08/2019 LYLA LANGE MD, Ot F32.9 MAJOR DEPRESSIVE DISORDER, SINGLE EPISOD 06/08/2019 LYLA LANGE MD, Ot J45.9 09 UNSPECIFIED ASTHMA, UNCOMPLICATED 06/08/2019 LYLA LANGE MD, Ot K21.9 GASTRO-ESOPHAGEAL REFLUX DISEASE WITHOUT 06/08/2019 LYLA LANGE MD, Ot S01.111A LACERATION W/O FB OF RIGHT EYELID AND PE 06/08/2019 LYLA LANGE MD, Ot S01.85XA OPEN BITE OF OTHER PART OF HEAD, INITIAL 06/08/2019 LYLA LANGE MD, Ot W55.01XA BITTEN BY CAT, INITIAL ENCOUNTER 06/08/2019 LYLA LANGE MD, Ot Z87.8 91 PERSONAL HISTORY OF NICOTINE DEPENDENCE 06/08/2019 LYLA LANGE MD, Ot Z88.1 ALLERGY STATUS TO OTHER ANTIBIOTIC AGENT 06/08/2019 LYLA LANGE MD, Ot Z88.2 ALLERGY STATUS TO SULFONAMIDES STATUS 06/08/2019 LYLA LANGE MD, Ot Z88.8 ALLERGY STATUS TO OTH DRUG/MEDS/BIOL SUB 06/08/2019 LYLA LANGE MD, Ot Z90.4 9 ACQUIRED ABSENCE OF OTHER SPECIFIED PART 06/08/2019 LYLA LANGE MD, Ot Z90.7 10 ACQUIRED ABSENCE OF BOTH CERVIX AND UTER 06/12/2019 ELAINA FERNANDEZ MD Ot Z01.818 ENCOUNTER FOR OTHER PREPROCEDURAL EXAMIN 06/14/2019 ELAINA FERNANDEZ MD Ot E03.9 HYPOTHYROIDISM, UNSPECIFIED 06/14/2019 ELAINA FERNANDEZ MD Ot E78.5 HYPERLIPIDEMIA, UNSPECIFIED 06/14/2019 ELAINA FERNANDEZ MD Ot F32.9 MAJOR DEPRESSIVE DISORDER, SINGLE EPISOD 06/14/2019 ELAINA FERNANDEZ MD Ot F41.9 ANXIETY DISORDER, UNSPECIFIED 06/14/2019 ELAINA FERNANDEZ MD, Ot F90.9 ATTENTION-DEFICIT HYPERACTIVITY DISORDER 06/14/2019 ELAINA FERNANDEZ MD, Ot G47.33 OBSTRUCTIVE SLEEP APNEA (ADULT) (PEDIATR 06/14/2019 ELAINA FERNANDEZ MD, Ot G89.29 OTHER CHRONIC PAIN 06/14/2019 ELAINA FERNANDEZ MD, Ot I1 0 ESSENTIAL (PRIMARY) HYPERTENSION 06/14/2019 ELAINA FERNANDEZ MD, Ot J45.909 UNSPECIFIED ASTHMA, UNCOMPLICATED 06/14/2019 ELAINA FERNANDEZ MD, Ot M19.90 UNSPECIFIED OSTEOARTHRITIS, UNSPECIFIED 06/14/2019 ELAINA FERNANDEZ MD, Ot M94.261 CHONDROMALACIA, RIGHT KNEE 06/14/2019 ELAINA FERNANDEZ MD, Ot S83.241A OTH TEAR OF MEDIAL MENISCUS, CURRENT INJ 06/14/2019 ELAINA FERNANDEZ MD, Ot S83.281A OTH TEAR OF LAT MENSC, CURRENT INJURY, R 06/14/2019 ELAINA FERNANDEZ MD, Ot 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 06/14/2019 ELAINA FERNANDEZ MD, Ot Z80.1 FAMILY HISTORY OF MALIG NEOPLASM OF TRAC 06/14/2019 ELAINA FERNANDEZ MD, Ot Z88.1 ALLERGY STATUS TO OTHER ANTIBIOTIC AGENT 06/14/2019 ELAINA FERNANDEZ MD, Ot Z88.2 ALLERGY STATUS TO SULFONAMIDES STATUS 06/14/2019 ELAINA FERNANDEZ MD, Ot Z88.8 ALLERGY STATUS TO OTH DRUG/MEDS/BIOL SUB 06/14/2019 ELAINA FERNANDEZ MD, Ot Z90.49 ACQUIRED ABSENCE OF OTHER SPECIFIED PART 06/14/2019 ELAINA FERNANDEZ MD, Ot Z90.710 ACQUIRED ABSENCE OF BOTH CERVIX AND UTER 06/14/2019 ELAINA FERNANDEZ MD, Ot Z90.89 ACQUIRED ABSENCE OF OTHER ORGANS 06/14/2019 ELAINA FERNANDEZ MD, Ot Z99.89 DEPENDENCE ON OTHER ENABLING MACHINES AN 06/16/2019 ELAINA FERNANDEZ MD, Ot E03.9 HYPOTHYROIDISM, UNSPECIFIED 06/16/2019 ELAINA FERNANDEZ MD, Ot E78.5 HYPERLIPIDEMIA, UNSPECIFIED 06/16/2019 ZAFUTA MD, ELAINA P Ot F32.9 MAJOR DEPRESSIVE DISORDER, SINGLE EPISOD 06/16/2019 ELAINA FERNANDEZ MD, Ot F41.9 ANXIETY DISORDER, UNSPECIFIED 06/16/2019 ELAINA FERNANDEZ MD, Ot F90.9 ATTENTION-DEFICIT HYPERACTIVITY DISORDER 06/16/2019 ELAINA FERNANDEZ MD, Ot G47.33 OBSTRUCTIVE SLEEP APNEA (ADULT) (PEDIATR 06/16/2019 ELAINA FERNANDEZ MD, Ot G89.29 OTHER CHRONIC PAIN 06/16/2019 ELAINA FERNANDEZ MD, Ot I1 0 ESSENTIAL (PRIMARY) HYPERTENSION 06/16/2019 ELAINA FERNANDEZ MD, Ot J45.909 UNSPECIFIED ASTHMA, UNCOMPLICATED 06/16/2019 ELAINA FERNANDEZ MD, Ot M19.90 UNSPECIFIED OSTEOARTHRITIS, UNSPECIFIED 06/16/2019 ELAINA FERNANDEZ MD, Ot M94.261 CHONDROMALACIA, RIGHT KNEE 06/16/2019 ELAINA FERNANDEZ MD, Ot S83.241A OTH TEAR OF MEDIAL MENISCUS, CURRENT INJ 06/16/2019 ELAINA FERNANDEZ MD, Ot S83.281A OTH TEAR OF LAT MENSC, CURRENT INJURY, R 06/16/2019 ELAINA FERNANDEZ MD, Ot Z79.899 OTHER [facility] (CURRENT) DRUG THERAPY 06/16/2019 ELAINA FERNANDEZ MD, Ot Z80.1 FAMILY HISTORY OF MALIG NEOPLASM OF TRAC 06/16/2019 ELAINA FERNANDEZ MD, Ot Z88.1 ALLERGY STATUS TO OTHER ANTIBIOTIC AGENT 06/16/2019 ELAINA FERNANDEZ MD, Ot Z88.2 ALLERGY STATUS TO SULFONAMIDES STATUS 06/16/2019 ELAINA FERNANDEZ MD, Ot Z88.8 ALLERGY STATUS TO OTH DRUG/MEDS/BIOL SUB 06/16/2019 ELAINA FERNANDEZ MD, Ot Z90.49 ACQUIRED ABSENCE OF OTHER SPECIFIED PART 06/16/2019 ELAINA FERNANDEZ MD, Ot Z90.710 ACQUIRED ABSENCE OF BOTH CERVIX AND UTER 06/16/2019 ELAINA FERNANDEZ MD, Ot Z90.89 ACQUIRED ABSENCE OF OTHER ORGANS 06/16/2019 ELAINA FERNANDEZ MD, Ot Z99.89 DEPENDENCE ON OTHER ENABLING MACHINES AN 06/28/2019 TJ VALENCIA MD, Ot E03. 9 HYPOTHYROIDISM, UNSPECIFIED 06/28/2019 TJ VALENCIA MD, Ot F32. 9 MAJOR DEPRESSIVE DISORDER, SINGLE EPISOD 06/28/2019 TJ VALENCIA MD A Ot G43.909 MIGRAINE, UNSP, NOT INTRACTABLE, WITHOUT 06/28/2019 TJ VALENCIA MD A Ot J45.909 UNSPECIFIED ASTHMA, UNCOMPLICATED 06/28/2019 TJ VALENCIA MD A Ot M25.562 PAIN IN LEFT KNEE 06/28/2019 TJ VALENCIA MD A Ot S80.02XA CONTUSION OF LEFT KNEE, INITIAL ENCOUNTE 06/28/2019 TJ VALENCIA MD A Ot W01.0XXA FALL SAME LEV FROM SLIP/TRIP W/O STRIKE 06/28/2019 TJ VALENCIA MD A Ot Z87.891 PERSONAL HISTORY OF NICOTINE DEPENDENCE 06/28/2019 TJ VALENCIA MD A Ot Z88. 1 ALLERGY STATUS TO OTHER ANTIBIOTIC AGENT 06/28/2019 TJ VALENCIA MD A Ot Z88. 2 ALLERGY STATUS TO SULFONAMIDES STATUS 06/28/2019 TJ VALENCIA MD A Ot Z88. 8 ALLERGY STATUS TO OTH DRUG/MEDS/BIOL SUB 06/28/2019 TJ VALENCIA MD A Ot Z90. 49 ACQUIRED ABSENCE OF OTHER SPECIFIED PART 06/28/2019 TJ VALENCIA MD A Ot Z90.710 ACQUIRED ABSENCE OF BOTH CERVIX AND UTER 06/28/2019 TJ VALENCIA MD A Ot Z90. 89 ACQUIRED ABSENCE OF OTHER ORGANS 07/04/2019 TJ VAELNCIA MD A Ot E03. 9 HYPOTHYROIDISM, UNSPECIFIED 07/04/2019 TJ VALENCIA MD A Ot F32. 9 MAJOR DEPRESSIVE DISORDER, SINGLE EPISOD 07/04/2019 TJ VALENCIA MD A Ot G43.909 MIGRAINE, UNSP, NOT INTRACTABLE, WITHOUT 07/04/2019 TJ VALENCIA MD A Ot J45.909 UNSPECIFIED ASTHMA, UNCOMPLICATED 07/04/2019 TJ VALENCIA MD A Ot M25.562 PAIN IN LEFT KNEE 07/04/2019 TJ VALENCIA MD A Ot S80.02XA CONTUSION OF LEFT KNEE, INITIAL ENCOUNTE 07/04/2019 TJ VALENCIA MD A Ot W01.0XXA FALL SAME LEV FROM SLIP/TRIP W/O STRIKE 07/04/2019 TJ VALENCIA MD A Ot Z87.891 PERSONAL HISTORY OF NICOTINE DEPENDENCE 07/04/2019 TJ VALENCIA MD A Ot Z88. 1 ALLERGY STATUS TO OTHER ANTIBIOTIC AGENT 07/04/2019 TJ VALENCIA MD Ot Z88. 2 ALLERGY STATUS TO SULFONAMIDES STATUS 07/04/2019 TJ VALENCIA MD Ot Z88. 8 ALLERGY STATUS TO OTH DRUG/MEDS/BIOL SUB 07/04/2019 TJ VALENCIA MD Ot Z90. 49 ACQUIRED ABSENCE OF OTHER SPECIFIED PART 07/04/2019 TJ VALENCIA MD Ot Z90.710 ACQUIRED ABSENCE OF BOTH CERVIX AND UTER 07/04/2019 TJ VALENCIA MD Ot Z90. 89 ACQUIRED ABSENCE OF OTHER ORGANS 07/10/2019 MYRTLE FABIAN MD Ot E03.9 HYPOTHYROIDISM, UNSPECIFIED 07/10/2019 MYRTLE FABIAN MD Ot F32.9 MAJOR DEPRESSIVE DISORDER, SINGLE EPISOD 07/10/2019 MYRTLE FABIAN MD Ot G43.909 MIGRAINE, UNSP, NOT INTRACTABLE, WITHOUT 07/10/2019 MYRTLE FABIAN MD Ot J45.909 UNSPECIFIED ASTHMA, UNCOMPLICATED 07/10/2019 MYRTLE FABIAN MD Ot M25.561 PAIN IN RIGHT KNEE 07/10/2019 MYRTLE FABIAN MD Ot S33.5XXA SPRAIN OF LIGAMENTS OF LUMBAR SPINE, INI 07/10/2019 MYRTLE FABIAN MD Ot S83.92XA SPRAIN OF UNSPECIFIED SITE OF LEFT KNEE, 07/10/2019 MYRTLE FABIAN MD Ot X50.1XXA OVEREXERTION FROM PROLONGED STATIC OR AW 07/10/2019 MYRTLE FABIAN MD Ot Z87.891 PERSONAL HISTORY OF NICOTINE DEPENDENCE 07/10/2019 MYRTLE FABIAN MD Ot Z88.1 ALLERGY STATUS TO OTHER ANTIBIOTIC AGENT 07/10/2019 MYRTLE FABIAN MD Ot Z88.2 ALLERGY STATUS TO SULFONAMIDES STATUS 07/10/2019 MYRTLE FABIAN MD Ot Z88.8 ALLERGY STATUS TO OTH DRUG/MEDS/BIOL SUB 07/10/2019 MYRTLE FABIAN MD Ot Z90.49 ACQUIRED ABSENCE OF OTHER SPECIFIED PART 07/10/2019 MYRTLE FABIAN MD Ot Z90.710 ACQUIRED ABSENCE OF BOTH CERVIX AND UTER 08/07/2019 KUMAR DO, JUAN L Ot E03.9 HYPOTHYROIDISM, UNSPECIFIED 08/07/2019 KUMAR DO, JUAN L Ot F32.9 MAJOR DEPRESSIVE DISORDER, SINGLE EPISOD 08/07/2019 KUMAR DO, JUAN L Ot G89.2 9 OTHER CHRONIC PAIN 08/07/2019 KUMAR DO, JUAN L Ot J45.9 09 UNSPECIFIED ASTHMA, UNCOMPLICATED 08/07/2019 KUMAR DO, JUAN L Ot M54.1 6 RADICULOPATHY, LUMBAR REGION 08/07/2019 KUMAR DO, JUAN L Ot M54.5 LOW BACK PAIN 08/07/2019 KUMAR DO, JUAN L Ot Z87.8 91 PERSONAL HISTORY OF NICOTINE DEPENDENCE 08/07/2019 KUMAR DO, JUAN L Ot Z88.1 ALLERGY STATUS TO OTHER ANTIBIOTIC AGENT 08/07/2019 KUMAR DO, JUAN L Ot Z88.2 ALLERGY STATUS TO SULFONAMIDES STATUS 08/07/2019 KUMAR DO, JUAN L Ot Z88.8 ALLERGY STATUS TO OTH DRUG/MEDS/BIOL SUB 08/08/2019 RACHEL IGNACIO, JEREMY S Ot K59.00 CONSTIPATION, UNSPECIFIED 08/08/2019 RACHEL IGNACIO, JEREMY S Ot R10 .9 UNSPECIFIED ABDOMINAL PAIN 08/16/2019 RACHEL IGNACIO, JEREMY S Ot K59.00 CONSTIPATION, UNSPECIFIED 08/16/2019 RACHEL IGNACIO, JEREMY S Ot R10 .9 UNSPECIFIED ABDOMINAL PAIN 08/18/2019 KUMAR DO, JUAN L Ot E03.9 HYPOTHYROIDISM, UNSPECIFIED 08/18/2019 KUMAR DO, JUAN L Ot F32.9 MAJOR DEPRESSIVE DISORDER, SINGLE EPISOD 08/18/2019 KUMAR DO, JUAN L Ot G89.2 9 OTHER CHRONIC PAIN 08/18/2019 KUMAR DO, JUAN L Ot J45.9 09 UNSPECIFIED ASTHMA, UNCOMPLICATED 08/18/2019 KUMAR DO, JUAN L Ot M54.1 6 RADICULOPATHY, LUMBAR REGION 08/18/2019 KUMAR DO, JUAN L Ot M54.5 LOW BACK PAIN 08/18/2019 KUMAR DO, JUAN L Ot Z87.8 91 PERSONAL HISTORY OF NICOTINE DEPENDENCE 08/18/2019 KUMAR DO, JUAN L Ot Z88.1 ALLERGY STATUS TO OTHER ANTIBIOTIC AGENT 08/18/2019 KUMAR DO, JUAN L Ot Z88.2 ALLERGY STATUS TO SULFONAMIDES STATUS 08/18/2019 KUMAR DO, JUAN L Ot Z88.8 ALLERGY STATUS TO OTH DRUG/MEDS/BIOL SUB 08/25/2019 ROVENSTINE DO, ABRIL L Ot E03.9 HYPOTHYROIDISM, UNSPECIFIED 08/25/2019 ROVENSTINE DO, ABRIL Grant Ot F32.9 MAJOR DEPRESSIVE DISORDER, SINGLE EPISOD 08/25/2019 ROVENSTINE DO, ABRIL Grant Ot J45.909 UNSPECIFIED ASTHMA, UNCOMPLICATED 08/25/2019 ROVENSTINE DO, ABRIL Grant Ot R07.9 CHEST PAIN, UNSPECIFIED 08/25/2019 ROVENSTINE DO, ABRIL Grant Ot Z88.1 ALLERGY STATUS TO OTHER ANTIBIOTIC AGENT 08/25/2019 ROVENSTINE DO, ABRIL L Ot Z88.2 ALLERGY STATUS TO SULFONAMIDES STATUS 08/25/2019 ROVENSTINE DO, ABRIL L Ot Z88.8 ALLERGY STATUS TO OTH DRUG/MEDS/BIOL SUB 08/30/2019 RACHEL IGNACIO, JEREMY S Ot K59.00 CONSTIPATION, UNSPECIFIED 08/30/2019 RACHEL IGNACIO, JEREMY S Ot R10 .9 UNSPECIFIED ABDOMINAL PAIN 08/30/2019 RACHEL IGNACIO, JEREMY S Ot K59.00 CONSTIPATION, UNSPECIFIED 08/30/2019 RACHEL IGNACIO, JEREMY S Ot R10 .9 UNSPECIFIED ABDOMINAL PAIN 09/19/2019 RACHEL IGNACIO, JEREMY S Ot K59.00 CONSTIPATION, UNSPECIFIED 09/19/2019 RACHEL IGNACIO, EJREMY S Ot R10 .9 UNSPECIFIED ABDOMINAL PAIN 10/21/2019 RICH DO, SUMMER Xie Ot E03.9 HYPOTHYROIDISM, UNSPECIFIED 10/21/2019 RICH DO, SUMMER Xie Ot F32.9 MAJOR DEPRESSIVE DISORDER, SINGLE EPISOD 10/21/2019 RICH DO, SUMMER Xie Ot G43.9 09 MIGRAINE, UNSP, NOT INTRACTABLE, WITHOUT 10/21/2019 RICH DO, SUMMER Xie Ot G89.2 9 OTHER CHRONIC PAIN 10/21/2019 RICH DO, SUMMER Xie Ot J45.9 09 UNSPECIFIED ASTHMA, UNCOMPLICATED 10/21/2019 RICH DO, SUMMER Xie Ot M54.5 LOW BACK PAIN 10/21/2019 RICH DO, SUMMER Xie Ot Z87.8 91 PERSONAL HISTORY OF NICOTINE DEPENDENCE 10/21/2019 RICH DO, SUMMER Xie Ot Z88.1 ALLERGY STATUS TO OTHER ANTIBIOTIC AGENT 10/21/2019 RICH DO, SUMMER Xie Ot Z88.2 ALLERGY STATUS TO SULFONAMIDES STATUS 10/21/2019 RICH DO, SUMMER Xie Ot Z88.8 ALLERGY STATUS TO OTH DRUG/MEDS/BIOL SUB 10/23/2019 RICH DO, SUMMER Xie Ot E03.9 HYPOTHYROIDISM, UNSPECIFIED 10/23/2019 [place] DO, SUMMER Xie Ot F32.9 MAJOR DEPRESSIVE DISORDER, SINGLE EPISOD 10/23/2019 [place] DO, SUMMER Xie Ot G43.9 09 MIGRAINE, UNSP, NOT INTRACTABLE, WITHOUT 10/23/2019 [place] DOSUMMER Ot G89.2 9 OTHER CHRONIC PAIN 10/23/2019 [place] DOSUMMER Ot J45.9 09 UNSPECIFIED ASTHMA, UNCOMPLICATED 10/23/2019 [place] DO, SUMMER Xie Ot M54.5 LOW BACK PAIN 10/23/2019 [place] DO, SUMMER Xie Ot Z87.8 91 PERSONAL HISTORY OF NICOTINE DEPENDENCE 10/23/2019 [place] DO, SUMMER Xie Ot Z88.1 ALLERGY STATUS TO OTHER ANTIBIOTIC AGENT 10/23/[address] [facility] ALLERGY STATUS TO SULFONAMIDES STATUS 10/23/[address] [facility].8 ALLERGY STATUS TO OTH DRUG/MEDS/BIOL SUB Procedures Code Description [place] [address] ROUT INE VENIPUNCTURE 04/06/2014 40122 CBC 04/06/2014 34458 MAMM OGRAM, SCREENING 04/24/2014 55645 PAP SMEAR 04/24/2014 Q0091 PAP SMEAR OBTAIN SMEAR 04/24/2014 39588 ROUT INE VENIPUNCTURE 10/12/2014 11744 US L IVER ULTRASOUND 10/12/2014 72827 CMP 10/12/2014 83680 MAGNESIUM 10/12/2014 76992 TSH 10/12/2014 80640 CBC 10/12/2014 09889 Intr avenous infusion, hydration; each ad GISELA RANDOLPH 07/12/2017 30649 Ther apeutic, prophylactic, or diagnostic GISELA RANDOLPH 07/12/2017 18024 Ther apeutic, prophylactic, or diagnostic GISELA RANDOLPH 07/12/2017 51181 Ther apeutic, prophylactic, or diagnostic GISELA RANDOLPH 07/12/2017 [id number] [facility] department visit for the evalu GISELA RANDOLPH 07/12/2017 Results Test Result Range Complete blood count (CBC) with automate d white blood cell (WBC) differential - 12/20/16 16:27 Blood leukocytes automated count (number/volume) 6.8 10*3/uL 4.3-11.0 Blood erythrocytes automated count (number/volume) 4.29 10*6/uL 4.35-5.85 Venous blood hemoglobin measurement (mass/volume) 13.9 g/dL 11.5-16.0 Blood hematocrit (volume fraction) 40 % 35-52 Automated erythrocyte mean corpuscular volume 94 [ foz_us] 80-99 Automated erythrocyte mean corpuscular h emoglobin (mass per erythrocyte) 32 pg 25-34 Automated erythrocyte mean corpuscular h emoglobin concentration measurement (mass/volume) 35 g/dL 32-36 Automated erythrocyte distribution width ratio 12. 7 % 10.0- 14.5 Automated blood platelet count [...] 10*3 1.0-4.0 Blood monocytes automated count (number/volume) 0. 6 10*3 0.0-1.0 Automated eosinophil count 0.0 10*3/uL 0 .0-0.3 Automated blood basophil count (count/volume) 0.0 10*3/uL 0.0-0.1 Comprehensive metabolic panel - 12/20/16 16:48 Serum or plasma sodium measurement (moles/volume) 141 mmol/L 135-145 Serum or plasma potassium measurement (moles/volume) 4.4 mmol/L 3.6-5.0 Serum or plasma chloride measurement (moles/volume) 104 mmol/L 98-107 Carbon dioxide 28 mmol/L 21-32 Serum or plasma anion gap determination (moles/volume) 9 mmol/L 5-14 Serum or plasma urea nitrogen measurement (mass/volume ) 18 mg/dL 7-18 Serum or plasma creatinine measurement (mass/volume) 1.37 mg/dL 0.60-1.30 Serum or plasma urea nitrogen/creatinine mass ratio 13 0-20 Serum or plasma creatinine measurement w ith calculation of estimated glomerular filtration rate 41 NRG Serum or plasma glucose measurement (mass/volume) 125 mg/dL 70-105 Serum or plasma calcium measurement (mass/volume) 10.0 mg/dL 8.5-10.1 Serum or plasma total bilirubin measurement (mass/volu me) 0.5 mg/dL 0.1-1.0 Serum or plasma alkaline phosphatase wendi surement (enzymatic activity/volume) 85 U/L 40-136 Serum or plasma aspartate aminotransfera se measurement (enzymatic activity/volume) 32 U/L 5-34 Serum or plasma alanine aminotransferase measurement (enzymatic activity/volume) 50 U/L 0-55 Serum or plasma protein measurement (mass/volume) 7.1 g/dL 6.4-8.2 Serum or plasma albumin measurement (mass/volume) 4.2 g/dL 3.2-4.5 Lipase - 12/20/16 16:48 Lipase 33 U/L 8-78 Complete urinalysis with reflex to cultu re - 12/20/16 18:57 Urine color determination YELLOW NRG Urine clarity determination CLEAR NR G Urine pH measurement by test strip 7 5-9 Specific gravity of urine by test strip 1.010 1.016-1.022 Urine protein assay by test strip, semi-quantitative 2+ NEGATIVE Urine glucose detection by automated test strip NE GATIVE NEGATIVE Erythrocytes detection in urine sediment by light micr oscopy 5+ NEGATIVE Urine ketones detection by automated test strip NE GATIVE NEGATIVE Urine nitrite detection by test strip NEGATIVE NEGATIVE Urine total bilirubin detection by test strip NEGA TIVE NEGATIVE Urine urobilinogen measurement by automated test strip (mass/volume) NORMAL NORMAL Urine leukocyte esterase detection by dipstick NEG ATIVE NEGATIVE Automated urine sediment erythrocyte cou nt by microscopy (number/high power field) [HPF] NRG Automated urine sediment leukocyte count by microscopy (number/high power field) [HPF] NRG Bacteria detection in urine sediment by light microsco py FEW NRG Squamous epithelial cells detection in u rine sediment by light microscopy 2-5 NRG Crystals detection in urine sediment by light microsco py NONE NRG Casts detection in urine sediment by light microscopy NONE NRG Mucus detection in urine sediment by light microscopy NEGATIVE NRG Complete urinalysis with reflex to culture NO NRG CBC With Differential/Platelet - 7 11:53 WBC 7.0 x10E3/uL 3.4-10.8 RBC 4.61 x10E6/uL 3.77-5.28 Hemoglobin 14.9 g/dL 11.1-15.9 Hematocrit 43.0 % 34.0-46.6 MCV 93 fL 79-97 MCH 32.3 pg 26.6-33.0 MCHC 34.7 g/dL 31.5-35.7 RDW 13.3 % 12.3-15.4 Platelets 200 x10E3/uL 150-379 Neutrophils 50 % Lymphs 40 % Monocytes 10 % Eos 0 % Basos 0 % Neutrophils (Absolute) 3.4 x10E3/uL 1.4- 7.0 Lymphs (Absolute) 2.8 x10E3/uL 0.7-3.1 Monocytes(Absolute) 0.7 x10E3/uL 0.1-0.9 Eos (Absolute) 0.0 x10E3/uL 0.0-0.4 Baso (Absolute) 0.0 x10E3/uL 0.0-0.2 Immature Granulocytes 0 % Immature Grans (Abs) 0.0 x10E3/uL 0.0-0. 1 Comp. Metabolic Panel (14) - 02/17/17 11 :53 Glucose, Serum 88 mg/dL 65-99 BUN 20 [...] uIU/mL 0.450-4.500 B-Type Natriuretic Peptide - 03/17/17 10 :46 B-Type Natriuretic Peptide <2.5 pg/mL 0. 0-100.0 Comp. Metabolic Panel (14) - 03/17/17 10 :46 Glucose, Serum 129 mg/dL 65-99 BUN 14 [...] 03/17/17 10:46 B-Type Natriuretic Peptide <2.5 pg/mL 0. 0-100.0 CMP - 03/17/17 10:46 Glucose, Serum 129 [...] NG5 NR URINALYSIS, CULTURE IF INDICATED - 07/12 19:16 Color, UA YELLOW YELL Clarity, Urine CLEAR Clear Glucose, Urine NEGATIVE mg/dL NEG Bilirubin, UA NEGATIVE NEG Ketones, UA NEGATIVE mg/dL NEG Specific [place], UA 1.024 1.003-1.0 30 Blood, UA MODERATE NEG pH, UA 6.0 [...] NEEDED NOCULT Complete blood count (CBC) with automate d white blood cell (WBC) differential - 06/27/18 19:53 Blood leukocytes automated count (number/volume) 8.5 10*3/uL 4.3-11.0 Blood erythrocytes automated count (number/volume) 4.75 10*6/uL 4.35-5.85 Venous blood hemoglobin measurement (mass/volume) 15.2 g/dL 11.5-16.0 Blood hematocrit (volume fraction) 44 % 35-52 Automated erythrocyte mean corpuscular volume 93 [ foz_us] 80-99 Automated erythrocyte mean corpuscular h emoglobin (mass per erythrocyte) 32 pg 25-34 Automated erythrocyte mean corpuscular h emoglobin concentration measurement (mass/volume) 34 g/dL 32-36 Automated erythrocyte distribution width ratio 12. 9 % 10.0- 14.5 Automated blood platelet count [...] 10*3 1.0-4.0 Blood monocytes automated count (number/volume) 0. 6 10*3 0.0-1.0 Automated eosinophil count 0.1 10*3/uL 0 .0-0.3 Automated blood basophil count (count/volume) 0.0 10*3/uL 0.0-0.1 Comprehensive metabolic panel - 06/27/18 19:53 Serum or plasma sodium measurement (moles/volume) 140 mmol/L 135-145 Serum or plasma potassium measurement (moles/volume) 4.1 mmol/L 3.6-5.0 Serum or plasma chloride measurement (moles/volume) 101 mmol/L 98-107 Carbon dioxide 26 mmol/L 21-32 Serum or plasma anion gap determination (moles/volume) 13 mmol/L 5-14 Serum or plasma urea nitrogen measurement (mass/volume ) 18 mg/dL 7-18 Serum or plasma creatinine measurement (mass/volume) 1.04 mg/dL 0.60-1.30 Serum or plasma urea nitrogen/creatinine mass ratio 17 NRG Serum or plasma creatinine measurement w ith calculation of estimated glomerular filtration rate 57 NRG Serum or plasma glucose measurement (mass/volume) 88 mg/dL 70-105 Serum or plasma calcium measurement (mass/volume) 10.1 mg/dL 8.5-10.1 Serum or plasma total bilirubin measurement (mass/volu me) 0.4 mg/dL 0.1-1.0 Serum or plasma alkaline phosphatase wendi surement (enzymatic activity/volume) 103 U/L 40-136 Serum or plasma aspartate aminotransfera se measurement (enzymatic activity/volume) 31 U/L 5-34 Serum [...] 1.62 u[iU]/mL 0.35-4.94 Erythrocyte sedimentation rate by nora gren method - 06/27/18 19:53 Erythrocyte sedimentation rate by westergren method 18 mm 0- 20 Serum or plasma C reactive protein measu rement (mass/volume) - 06/27/18 19:53 Serum or plasma C reactive protein measurement (mass/v olume) 0.67 mg/dL 0.00-0.50 Influenza virus A and B antigen detectio n - 06/27/18 20:38 FLU RESULT NEGATIVE FOR INFLUENZA A AND B ANTIGENS BY [facility] Automated blood complete blood count (he mogram) panel - 07/19/18 07:45 Blood leukocytes automated count (number/volume) 5.8 10*3/uL 4.3-11.0 Blood erythrocytes automated count (number/volume) 4.08 10*6/uL 4.35-5.85 Venous blood hemoglobin measurement (mass/volume) 13.3 g/dL 11.5-16.0 Blood hematocrit (volume fraction) 38 % 35-52 Automated erythrocyte mean corpuscular volume 94 [ foz_us] 80-99 Automated erythrocyte mean corpuscular h emoglobin (mass per erythrocyte) 33 pg 25-34 Automated erythrocyte mean corpuscular h emoglobin concentration measurement (mass/volume) 35 g/dL 32-36 Automated erythrocyte distribution width ratio 13. 1 % 10.0- 14.5 Automated blood platelet count (count/volume) 149 10*3/uL 130-400 Automated blood platelet mean volume measurement 10.7 [foz_us] 7.4-10.4 PT panel in platelet poor plasma by coag ulation assay - 07/19/18 07:45 Prothrombin time (PT) in platelet poor plasma by coagu lation assay 12.4 s 12.2-14.7 INR in platelet poor plasma or blood by coagulation as say 0.9 0.8-1.4 Activated partial thromboplastin time (a PTT) in platelet poor plasma bycoagulation assay - 07/19/18 07:45 Activated partial thromboplastin time (a PTT) in platelet poor plasma bycoagulation assay 26 s 24-35 Comprehensive metabolic panel - 07/19/18 07:45 Serum or plasma sodium measurement (moles/volume) 143 mmol/L 135-145 Serum or plasma potassium measurement (moles/volume) 3.5 mmol/L 3.6-5.0 Serum or plasma chloride measurement (moles/volume) 105 mmol/L 98-107 Carbon dioxide 28 mmol/L 21-32 Serum or plasma anion gap determination (moles/volume) 10 mmol/L 5-14 Serum or plasma urea nitrogen measurement (mass/volume ) 19 mg/dL 7-18 Serum or plasma creatinine measurement (mass/volume) 1.09 mg/dL 0.60-1.30 Serum or plasma urea nitrogen/creatinine mass ratio 17 NRG Serum or plasma creatinine measurement w ith calculation of estimated glomerular filtration rate 54 NRG Serum or plasma glucose measurement (mass/volume) 111 mg/dL 70-105 Serum or plasma calcium measurement (mass/volume) 8.9 mg/dL 8.5-10.1 Serum or plasma total bilirubin measurement (mass/volu me) 0.5 mg/dL 0.1-1.0 Serum or plasma alkaline phosphatase wendi surement (enzymatic activity/volume) 76 U/L 40-136 Serum or plasma aspartate aminotransfera se measurement (enzymatic activity/volume) 26 U/L 5-34 Serum [...] Serum or plasma cholesterol in HDL measurement (mass/v olume) 58 mg/dL 40-60 Cholesterol in LDL [mass/volume] in serum or plasma by direct assay 152 mg/dL 1-129 Serum or plasma cholesterol in VLDL measurement (mass/ volume) 38 mg/dL 5-40 Methicillin resistant Staphylococcus aur eus (MRSA) screening culture - 07/19/18 07:45 Methicillin resistant Staphylococcus aureus (MRSA) scr eening culture NEG NRG Complete urinalysis with reflex to cultu re - 08/29/18 12:50 Urine color determination YELLOW NRG Urine clarity determination CLEAR NR G Urine pH measurement by test strip 6.5 5-9 Specific gravity of urine by test strip 1.025 1.016-1.022 Urine protein assay by test strip, semi-quantitative 2+ NEGATIVE Urine glucose detection by automated test strip NE GATIVE NEGATIVE Erythrocytes detection in urine sediment by light micr oscopy 3+ NEGATIVE Urine ketones detection by automated test strip NE GATIVE NEGATIVE Urine nitrite detection by test strip NEGATIVE NEGATIVE Urine total bilirubin detection by test strip NEGA TIVE NEGATIVE Urine urobilinogen measurement by automated test strip (mass/volume) 0.2 mg/dL NORMAL Urine leukocyte esterase detection by dipstick NEG ATIVE NEGATIVE Automated urine sediment erythrocyte cou nt by microscopy (number/high power field) > [HPF] NRG Automated urine sediment leukocyte count by microscopy (number/high power field) NONE NRG Bacteria detection in urine sediment by light microsco py TRACE NRG Squamous epithelial cells detection in u rine sediment by light microscopy 10-25 NRG Crystals detection in urine sediment by light microsco py NONE NRG Casts detection in urine sediment by light microscopy NONE NRG Mucus detection in urine sediment by light microscopy NEGATIVE NRG Complete urinalysis with reflex to culture NO NRG Complete blood count (CBC) with automate d white blood cell (WBC) differential - 08/29/18 13:21 Blood leukocytes automated count (number/volume) 5.2 10*3/uL 4.3-11.0 Blood erythrocytes automated count (number/volume) 4.24 10*6/uL 4.35-5.85 Venous blood hemoglobin measurement (mass/volume) 13.6 g/dL 11.5-16.0 Blood hematocrit (volume fraction) 40 % 35-52 Automated erythrocyte mean corpuscular volume 94 [ foz_us] 80-99 Automated erythrocyte mean corpuscular h emoglobin (mass per erythrocyte) 32 pg 25-34 Automated erythrocyte mean corpuscular h emoglobin concentration measurement (mass/volume) 34 g/dL 32-36 Automated erythrocyte distribution width ratio 12. 7 % 10.0- 14.5 Automated blood platelet count [...] 10*3 1.0-4.0 Blood monocytes automated count (number/volume) 0. 4 10*3 0.0-1.0 Automated eosinophil count 0.1 10*3/uL 0 .0-0.3 Automated blood basophil count (count/volume) 0.0 10*3/uL 0.0-0.1 Comprehensive metabolic panel - 08/29/18 13:21 Serum or plasma sodium measurement (moles/volume) 141 mmol/L 135-145 Serum or plasma potassium measurement (moles/volume) 4.2 mmol/L 3.6-5.0 Serum or plasma chloride measurement (moles/volume) 103 mmol/L 98-107 Carbon dioxide 25 mmol/L 21-32 Serum or plasma anion gap determination (moles/volume) 13 mmol/L 5-14 Serum or plasma urea nitrogen measurement (mass/volume ) 12 mg/dL 7-18 Serum or plasma creatinine measurement (mass/volume) 0.85 mg/dL 0.60-1.30 Serum or plasma urea nitrogen/creatinine mass ratio 14 NRG Serum or plasma creatinine measurement w ith calculation of estimated glomerular filtration rate > NRG Serum or plasma glucose measurement (mass/volume) 118 mg/dL 70-105 Serum or plasma calcium measurement (mass/volume) 9.1 mg/dL 8.5-10.1 Serum or plasma total bilirubin measurement (mass/volu me) 0.3 mg/dL 0.1-1.0 Serum or plasma alkaline phosphatase wendi surement (enzymatic activity/volume) 82 U/L 40-136 Serum or plasma aspartate aminotransfera se measurement (enzymatic activity/volume) 31 U/L 5-34 Serum or plasma alanine aminotransferase measurement (enzymatic activity/volume) 43 U/L 0-55 Serum or plasma protein measurement (mass/volume) 6.7 g/dL 6.4-8.2 Serum or plasma albumin measurement (mass/volume) 3.9 g/dL 3.2-4.5 CALCIUM CORRECTED 9.2 mg/dL 8.5-10.1 Lipase - 08/29/18 13:21 Lipase 32 U/L 8-78 Complete blood count (CBC) with automate d white blood cell (WBC) differential - 10/04/18 00:00 Blood leukocytes automated count (number/volume) 6.3 10*3/uL 4.3-11.0 Blood erythrocytes automated count (number/volume) 4.34 10*6/uL 4.35-5.85 Venous blood hemoglobin measurement (mass/volume) 13.9 g/dL 11.5-16.0 Blood hematocrit (volume fraction) 41 % 35-52 Automated erythrocyte mean corpuscular volume 94 [ foz_us] 80-99 Automated erythrocyte mean corpuscular h emoglobin (mass per erythrocyte) 32 pg 25-34 Automated erythrocyte mean corpuscular h emoglobin concentration measurement (mass/volume) 34 g/dL 32-36 Automated erythrocyte distribution width ratio 12. 5 % 10.0- 14.5 Automated blood platelet count [...] 10*3 1.0-4.0 Blood monocytes automated count (number/volume) 0. 6 10*3 0.0-1.0 Automated eosinophil count 0.1 10*3/uL 0 .0-0.3 Automated blood basophil count (count/volume) 0.0 10*3/uL 0.0-0.1 Comprehensive metabolic panel - 10/04/18 00:00 Serum or plasma sodium measurement (moles/volume) 143 mmol/L 135-145 Serum or plasma potassium measurement (moles/volume) 4.0 mmol/L 3.6-5.0 Serum or plasma chloride measurement (moles/volume) 103 mmol/L 98-107 Carbon dioxide 30 mmol/L 21-32 Serum or plasma anion gap determination (moles/volume) 10 mmol/L 5-14 Serum or plasma urea nitrogen measurement (mass/volume ) 19 mg/dL 7-18 Serum or plasma creatinine measurement (mass/volume) 0.99 mg/dL 0.60-1.30 Serum or plasma urea nitrogen/creatinine mass ratio 19 NRG Serum or plasma creatinine measurement w ith calculation of estimated glomerular filtration rate 60 NRG Serum or plasma glucose measurement (mass/volume) 114 mg/dL 70-105 Serum or plasma calcium measurement (mass/volume) 9.2 mg/dL 8.5-10.1 Serum or plasma total bilirubin measurement (mass/volu me) 0.2 mg/dL 0.1-1.0 Serum or plasma alkaline phosphatase wendi surement (enzymatic activity/volume) 90 U/L 40-136 Serum or plasma aspartate aminotransfera se measurement (enzymatic activity/volume) 20 U/L 5-34 Serum or plasma alanine aminotransferase measurement (enzymatic activity/volume) 33 U/L 0-55 Serum or plasma protein measurement (mass/volume) 6.6 g/dL 6.4-8.2 Serum or plasma albumin measurement (mass/volume) 4.0 g/dL 3.2-4.5 CALCIUM CORRECTED 9.2 mg/dL 8.5-10.1 Lipase - 10/04/18 00:00 Lipase 38 U/L 8-78 PT panel in platelet poor plasma by coag ulation assay - 11/03/18 04:50 Prothrombin time (PT) in platelet poor plasma by coagu lation assay 12.8 s 12.2-14.7 INR in platelet poor plasma or blood by coagulation as say 0.9 0.8-1.4 Activated partial thromboplastin time (a PTT) in platelet poor plasma bycoagulation assay - 11/03/18 04:50 Activated partial thromboplastin time (a PTT) in platelet poor plasma bycoagulation assay 26 s 24-35 Complete blood count (CBC) with automate d white blood cell (WBC) differential - 11/03/18 04:50 Blood leukocytes automated count (number/volume) 8.8 10*3/uL 4.3-11.0 Blood erythrocytes automated count (number/volume) 4.39 10*6/uL 4.35-5.85 Venous blood hemoglobin measurement (mass/volume) 14.1 g/dL 11.5-16.0 Blood hematocrit (volume fraction) 41 % 35-52 Automated erythrocyte mean corpuscular volume 93 [ foz_us] 80-99 Automated erythrocyte mean corpuscular h emoglobin (mass per erythrocyte) 32 pg 25-34 Automated erythrocyte mean corpuscular h emoglobin concentration measurement (mass/volume) 35 g/dL 32-36 Automated erythrocyte distribution width ratio 12. 4 % 10.0- 14.5 Automated blood platelet count [...] 10*3 1.0-4.0 Blood monocytes automated count (number/volume) 0. 8 10*3 0.0-1.0 Automated eosinophil count 0.1 10*3/uL 0 .0-0.3 Automated blood basophil count (count/volume) 0.0 10*3/uL 0.0-0.1 Comprehensive metabolic panel - 11/03/18 04:50 Serum or plasma sodium measurement (moles/volume) 137 mmol/L 135-145 Serum or plasma potassium measurement (moles/volume) 3.4 mmol/L 3.6-5.0 Serum or plasma chloride measurement (moles/volume) 95 mmol/L 98-107 Carbon dioxide 21 mmol/L 21-32 Serum or plasma anion gap determination (moles/volume) 21 mmol/L 5-14 Serum or plasma urea nitrogen measurement (mass/volume ) 17 mg/dL 7-18 Serum or plasma creatinine measurement (mass/volume) 1.03 mg/dL 0.60-1.30 Serum or plasma urea nitrogen/creatinine mass ratio 17 NRG Serum or plasma creatinine measurement w ith calculation of estimated glomerular filtration rate 57 NRG Serum or plasma glucose measurement (mass/volume) 126 mg/dL 70-105 Serum or plasma calcium measurement (mass/volume) 9.1 mg/dL 8.5-10.1 Serum or plasma total bilirubin measurement (mass/volu me) 0.3 mg/dL 0.1-1.0 Serum or plasma alkaline phosphatase wendi surement (enzymatic activity/volume) 95 U/L 40-136 Serum or plasma aspartate aminotransfera se measurement (enzymatic activity/volume) 19 U/L 5-34 Serum [...] pg/mL <75.0 Complete blood count (CBC) with automate d white blood cell (WBC) differential - 11/08/18 13:00 Blood leukocytes automated count (number/volume) 6.5 10*3/uL 4.3-11.0 Blood erythrocytes automated count (number/volume) 4.64 10*6/uL 4.35-5.85 Venous blood hemoglobin measurement (mass/volume) 14.5 g/dL 11.5-16.0 Blood hematocrit (volume fraction) 43 % 35-52 Automated erythrocyte mean corpuscular volume 93 [ foz_us] 80-99 Automated erythrocyte mean corpuscular h emoglobin (mass per erythrocyte) 31 pg 25-34 Automated erythrocyte mean corpuscular h emoglobin concentration measurement (mass/volume) 34 g/dL 32-36 Automated erythrocyte distribution width ratio 12. 6 % 10.0- 14.5 Automated blood platelet count [...] 10*3 1.0-4.0 Blood monocytes automated count (number/volume) 0. 6 10*3 0.0-1.0 Automated eosinophil count 0.1 10*3/uL 0 .0-0.3 Automated blood basophil count (count/volume) 0.0 10*3/uL 0.0-0.1 Comprehensive metabolic panel - 11/08/18 13:00 Serum or plasma sodium measurement (moles/volume) 142 mmol/L 135-145 Serum or plasma potassium measurement (moles/volume) 4.0 mmol/L 3.6-5.0 Serum or plasma chloride measurement (moles/volume) 100 mmol/L 98-107 Carbon dioxide 27 mmol/L 21-32 Serum or plasma anion gap determination (moles/volume) 15 mmol/L 5-14 Serum or plasma urea nitrogen measurement (mass/volume ) 18 mg/dL 7-18 Serum or plasma creatinine measurement (mass/volume) 1.01 mg/dL 0.60-1.30 Serum or plasma urea nitrogen/creatinine mass ratio 18 NRG Serum or plasma creatinine measurement w ith calculation of estimated glomerular filtration rate 58 NRG Serum or plasma glucose measurement (mass/volume) 101 mg/dL 70-105 Serum or plasma calcium measurement (mass/volume) 9.6 mg/dL 8.5-10.1 Serum or plasma total bilirubin measurement (mass/volu me) 0.4 mg/dL 0.1-1.0 Serum or plasma alkaline phosphatase wendi surement (enzymatic activity/volume) 95 U/L 40-136 Serum or plasma aspartate aminotransfera se measurement (enzymatic activity/volume) 30 U/L 5-34 Serum or plasma alanine aminotransferase measurement (enzymatic activity/volume) 38 U/L 0-55 Serum or plasma protein measurement (mass/volume) 7.0 g/dL 6.4-8.2 Serum or plasma albumin measurement (mass/volume) 4.2 g/dL 3.2-4.5 CALCIUM CORRECTED 9.4 mg/dL 8.5-10.1 Lipase - 11/08/18 13:00 Lipase 38 U/L 8-78 Complete blood count (CBC) with automate d white blood cell (WBC) differential - 11/22/18 22:55 Blood leukocytes automated count (number/volume) 6.4 10*3/uL 4.3-11.0 Blood erythrocytes automated count (number/volume) 4.20 10*6/uL 4.35-5.85 Venous blood hemoglobin measurement (mass/volume) 13.4 g/dL 11.5-16.0 Blood hematocrit (volume fraction) 40 % 35-52 Automated erythrocyte mean corpuscular volume 94 [ foz_us] 80-99 Automated erythrocyte mean corpuscular h emoglobin (mass per erythrocyte) 32 pg 25-34 Automated erythrocyte mean corpuscular h emoglobin concentration measurement (mass/volume) 34 g/dL 32-36 Automated erythrocyte distribution width ratio 12. 8 % 10.0- 14.5 Automated blood platelet count [...] 10*3 1.0-4.0 Blood monocytes automated count (number/volume) 0. 6 10*3 0.0-1.0 Automated eosinophil count 0.1 10*3/uL 0 .0-0.3 Automated blood basophil count (count/volume) 0.0 10*3/uL 0.0-0.1 Comprehensive metabolic panel - 11/22/18 22:55 Serum or plasma sodium measurement (moles/volume) 141 mmol/L 135-145 Serum or plasma potassium measurement (moles/volume) 4.4 mmol/L 3.6-5.0 Serum or plasma chloride measurement (moles/volume) 102 mmol/L 98-107 Carbon dioxide 25 mmol/L 21-32 Serum or plasma anion gap determination (moles/volume) 14 mmol/L 5-14 Serum or plasma urea nitrogen measurement (mass/volume ) 14 mg/dL 7-18 Serum or plasma creatinine measurement (mass/volume) 1.10 mg/dL 0.60-1.30 Serum or plasma urea nitrogen/creatinine mass ratio 13 NRG Serum or plasma creatinine measurement w ith calculation of estimated glomerular filtration rate 53 NRG Serum or plasma glucose measurement (mass/volume) 112 mg/dL 70-105 Serum or plasma calcium measurement (mass/volume) 8.8 mg/dL 8.5-10.1 Serum or plasma total bilirubin measurement (mass/volu me) 0.3 mg/dL 0.1-1.0 Serum or plasma alkaline phosphatase wendi surement (enzymatic activity/volume) 94 U/L 40-136 Serum or plasma aspartate aminotransfera se measurement (enzymatic activity/volume) 22 U/L 5-34 Serum [...] 23:30 Urine beta human chorionic gonadotropin (hCG) measurem ent NEGATIVE NEGATIVE Urine drug screening test - 11/22/18 23: 30 Urine phencyclidine detection by screening method NEGATIVE NEGATIVE Urine benzodiazepines detection by screening method NEGATIVE NEGATIVE Urine cocaine detection NEGATIVE NEGATI VE Urine amphetamines detection by screening method N EGATIVE NEGATIVE Urine methamphetamine detection by screening method NEGATIVE NEGATIVE Urine cannabinoids detection by screening method N EGATIVE NEGATIVE Urine opiates detection by screening method NEGATI VE NEGATIVE Urine barbiturates detection NEGATIVE N EGATIVE Screening urine tricyclic antidepressants detection NEGATIVE NEGATIVE Urine methadone detection by screening method NEGA TIVE NEGATIVE Urine oxycodone detection NEGATIVE NEGA TIVE Urine propoxyphene detection NEGATIVE N EGATIVE Complete urinalysis with reflex to cultu re - 11/22/18 23:30 Urine color determination YELLOW NRG Urine clarity determination SLT CLOUDY NRG Urine pH measurement by test strip 6.0 5-9 Specific gravity of urine by test strip 1.020 1.016-1.022 Urine protein assay by test strip, semi-quantitative 1+ NEGATIVE Urine glucose detection by automated test strip NE GATIVE NEGATIVE Erythrocytes detection in urine sediment by light micr oscopy 3+ NEGATIVE Urine ketones detection by automated test strip NE GATIVE NEGATIVE Urine nitrite detection by test strip NEGATIVE NEGATIVE Urine total bilirubin detection by test strip NEGA TIVE NEGATIVE Urine urobilinogen measurement by automated test strip (mass/volume) 0.2 mg/dL NORMAL Urine leukocyte esterase detection by dipstick NEG ATIVE NEGATIVE Automated urine sediment erythrocyte cou nt by microscopy (number/high power field) [HPF] NRG Automated urine sediment leukocyte count by microscopy (number/high power field) [HPF] NRG Bacteria detection in urine sediment by light microsco py MODERATE NRG Squamous epithelial cells detection in u rine sediment by light microscopy 2-5 NRG Crystals detection in urine sediment by light microsco py NONE NRG Casts detection in urine sediment by light microscopy NONE NRG Mucus detection in urine sediment by light microscopy NONE NRG Complete urinalysis with reflex to culture NO NRG Complete urinalysis with reflex to cultu re - 11/28/18 14:17 Urine color determination YELLOW NRG Urine clarity determination CLEAR NR G Urine pH measurement by test strip 7.0 5-9 Specific gravity of urine by test strip 1.015 1.016-1.022 Urine protein assay by test strip, semi-quantitative 1+ NEGATIVE Urine glucose detection by automated test strip NE GATIVE NEGATIVE Erythrocytes detection in urine sediment by light micr oscopy 2+ NEGATIVE Urine ketones detection by automated test strip NE GATIVE NEGATIVE Urine nitrite detection by test strip NEGATIVE NEGATIVE Urine total bilirubin detection by test strip NEGA TIVE NEGATIVE Urine urobilinogen measurement by automated test strip (mass/volume) 0.2 mg/dL NORMAL Urine leukocyte esterase detection by dipstick NEG ATIVE NEGATIVE Automated urine sediment erythrocyte cou nt by microscopy (number/high power field) [HPF] NRG Automated urine sediment leukocyte count by microscopy (number/high power field) NONE NRG Bacteria detection in urine sediment by light microsco py FEW NRG Squamous epithelial cells detection in u rine sediment by light microscopy 5-10 NRG Crystals detection in urine sediment by light microsco py NONE NRG Casts detection in urine sediment by light microscopy NONE NRG Mucus detection in urine sediment by light microscopy NEGATIVE NRG Complete urinalysis with reflex to culture NO NRG Complete blood count (CBC) with automate d white blood cell (WBC) differential - 11/28/18 15:10 Blood leukocytes automated count (number/volume) 5.7 10*3/uL 4.3-11.0 Blood erythrocytes automated count (number/volume) 4.05 10*6/uL 4.35-5.85 Venous blood hemoglobin measurement (mass/volume) 12.9 g/dL 11.5-16.0 Blood hematocrit (volume fraction) 38 % 35-52 Automated erythrocyte mean corpuscular volume 95 [ foz_us] 80-99 Automated erythrocyte mean corpuscular h emoglobin (mass per erythrocyte) 32 pg 25-34 Automated erythrocyte mean corpuscular h emoglobin concentration measurement (mass/volume) 34 g/dL 32-36 Automated erythrocyte distribution width ratio 12. 8 % 10.0- 14.5 Automated blood platelet count [...] 10*3 1.0-4.0 Blood monocytes automated count (number/volume) 0. 5 10*3 0.0-1.0 Automated eosinophil count 0.1 10*3/uL 0 .0-0.3 Automated blood basophil count (count/volume) 0.0 10*3/uL 0.0-0.1 Comprehensive metabolic panel - 11/28/18 15:10 Serum or plasma sodium measurement (moles/volume) 143 mmol/L 135-145 Serum or plasma potassium measurement (moles/volume) 4.3 mmol/L 3.6-5.0 Serum or plasma chloride measurement (moles/volume) 101 mmol/L 98-107 Carbon dioxide 34 mmol/L 21-32 Serum or plasma anion gap determination (moles/volume) 8 mmol/L 5-14 Serum or plasma urea nitrogen measurement (mass/volume ) 15 mg/dL 7-18 Serum or plasma creatinine measurement (mass/volume) 1.19 mg/dL 0.60-1.30 Serum or plasma urea nitrogen/creatinine mass ratio 13 NRG Serum or plasma creatinine measurement w ith calculation of estimated glomerular filtration rate 48 NRG Serum or plasma glucose measurement (mass/volume) 164 mg/dL 70-105 Serum or plasma calcium measurement (mass/volume) 9.2 mg/dL 8.5-10.1 Serum or plasma total bilirubin measurement (mass/volu me) 0.2 mg/dL 0.1-1.0 Serum or plasma alkaline phosphatase wendi surement (enzymatic activity/volume) 95 U/L 40-136 Serum or plasma aspartate aminotransfera se measurement (enzymatic activity/volume) 21 U/L 5-34 Serum or plasma alanine aminotransferase measurement (enzymatic activity/volume) 30 U/L 0-55 Serum or plasma protein measurement (mass/volume) 6.2 g/dL 6.4-8.2 Serum or plasma albumin measurement (mass/volume) 3.7 g/dL 3.2-4.5 CALCIUM CORRECTED 9.4 mg/dL 8.5-10.1 Lipase - 11/28/18 15:10 Lipase 38 U/L 8-78 Complete urinalysis with reflex to cultu re - 12/04/18 01:19 Urine color determination YELLOW NRG Urine clarity determination SLT CLOUDY NRG Urine pH measurement by test strip 6.0 5-9 Specific gravity of urine by test strip >= 1.016-1.022 Urine protein assay by test strip, semi-quantitative 2+ NEGATIVE Urine glucose detection by automated test strip NE GATIVE NEGATIVE Erythrocytes detection in urine sediment by light micr oscopy 3+ NEGATIVE Urine ketones detection by automated test strip NE GATIVE NEGATIVE Urine nitrite detection by test strip NEGATIVE NEGATIVE Urine total bilirubin detection by test strip NEGA TIVE NEGATIVE Urine urobilinogen measurement by automated test strip (mass/volume) 0.2 mg/dL NORMAL Urine leukocyte esterase detection by dipstick NEG ATIVE NEGATIVE Automated urine sediment erythrocyte cou nt by microscopy (number/high power field) [HPF] NRG Automated urine sediment leukocyte count by microscopy (number/high power field) [HPF] NRG Bacteria detection in urine sediment by light microsco py FEW NRG Squamous epithelial cells detection in u rine sediment by light microscopy 5-10 NRG Crystals detection in urine sediment by light microsco py NONE NRG Casts detection in urine sediment [...] PERFORMED NRG Complete blood count (CBC) with automate d white blood cell (WBC) differential - 12/04/18 01:25 Blood leukocytes automated count (number/volume) 6.5 10*3/uL 4.3-11.0 Blood erythrocytes automated count (number/volume) 4.24 10*6/uL 4.35-5.85 Venous blood hemoglobin measurement (mass/volume) 13.5 g/dL 11.5-16.0 Blood hematocrit (volume fraction) 40 % 35-52 Automated erythrocyte mean corpuscular volume 94 [ foz_us] 80-99 Automated erythrocyte mean corpuscular h emoglobin (mass per erythrocyte) 32 pg 25-34 Automated erythrocyte mean corpuscular h emoglobin concentration measurement (mass/volume) 34 g/dL 32-36 Automated erythrocyte distribution width ratio 12. 8 % 10.0- 14.5 Automated blood platelet count [...] 10*3 1.0-4.0 Blood monocytes automated count (number/volume) 0. 6 10*3 0.0-1.0 Automated eosinophil count 0.2 10*3/uL 0 .0-0.3 Automated blood basophil count (count/volume) 0.0 10*3/uL 0.0-0.1 Comprehensive metabolic panel - 12/04/18 01:25 Serum or plasma sodium measurement (moles/volume) 139 mmol/L 135-145 Serum or plasma potassium measurement (moles/volume) 4.0 mmol/L 3.6-5.0 Serum or plasma chloride measurement (moles/volume) 100 mmol/L 98-107 Carbon dioxide 26 mmol/L 21-32 Serum or plasma anion gap determination (moles/volume) 13 mmol/L 5-14 Serum or plasma urea nitrogen measurement (mass/volume ) 18 mg/dL 7-18 Serum or plasma creatinine measurement (mass/volume) 0.84 mg/dL 0.60-1.30 Serum or plasma urea nitrogen/creatinine mass ratio 21 NRG Serum or plasma creatinine measurement w ith calculation of estimated glomerular filtration rate > NRG Serum or plasma glucose measurement (mass/volume) 112 mg/dL 70-105 Serum or plasma calcium measurement (mass/volume) 9.1 mg/dL 8.5-10.1 Serum or plasma total bilirubin measurement (mass/volu me) 0.2 mg/dL 0.1-1.0 Serum or plasma alkaline phosphatase wendi surement (enzymatic activity/volume) 91 U/L 40-136 Serum or plasma aspartate aminotransfera se measurement (enzymatic activity/volume) 24 U/L 5-34 Serum or plasma alanine aminotransferase measurement (enzymatic activity/volume) 35 U/L 0-55 Serum or plasma protein measurement (mass/volume) 6.8 g/dL 6.4-8.2 Serum or plasma albumin measurement (mass/volume) 3.9 g/dL 3.2-4.5 CALCIUM CORRECTED 9.2 mg/dL 8.5-10.1 Lipase - 12/04/18 01:25 Lipase 39 U/L 8-78 Complete blood count (CBC) with automate d white blood cell (WBC) differential - 01/08/19 12:40 Blood leukocytes automated count (number/volume) 5.7 10*3/uL 4.3-11.0 Blood erythrocytes automated count (number/volume) 4.14 10*6/uL 4.35-5.85 Venous blood hemoglobin measurement (mass/volume) 13.0 g/dL 11.5-16.0 Blood hematocrit (volume fraction) 39 % 35-52 Automated erythrocyte mean corpuscular volume 94 [ foz_us] 80-99 Automated erythrocyte mean corpuscular h emoglobin (mass per erythrocyte) 31 pg 25-34 Automated erythrocyte mean corpuscular h emoglobin concentration measurement (mass/volume) 33 g/dL 32-36 Automated erythrocyte distribution width ratio 13. 1 % 10.0- 14.5 Automated blood platelet count (count/volume) 145 10*3/uL 130-400 Automated blood platelet mean volume measurement 10.5 [foz_us] 7.4-10.4 Automated blood neutrophils/100 leukocytes 55 % 42-75 Automated blood lymphocytes/100 leukocytes 36 % 12-44 Blood monocytes/100 leukocytes 8 % 0-12 Automated blood eosinophils/100 leukocytes 1 % 0-10 Automated blood basophils/100 leukocytes 0 % 0-10 Blood neutrophils automated count (number/volume) 3.1 10*3 1.8-7.8 Blood lymphocytes automated count (number/volume) 2.1 10*3 1.0-4.0 Blood monocytes automated count (number/volume) 0. 5 10*3 0.0-1.0 Automated eosinophil count 0.1 10*3/uL 0 .0-0.3 Automated blood basophil count (count/volume) 0.0 10*3/uL 0.0-0.1 PT panel in platelet poor plasma by coag ulation assay - 01/08/19 12:40 Prothrombin time (PT) in platelet poor plasma by coagu lation assay 12.9 s 12.2-14.7 INR in platelet poor plasma or blood by coagulation as say 0.9 0.8-1.4 Activated partial thromboplastin time (a PTT) in platelet poor plasma bycoagulation assay - 01/08/19 12:40 Activated partial thromboplastin time (a PTT) in platelet poor plasma bycoagulation assay 22 s 24-35 Comprehensive metabolic panel - 01/08/19 12:40 Serum or plasma sodium measurement (moles/volume) 139 mmol/L 135-145 Serum or plasma potassium measurement (moles/volume) 4.2 mmol/L 3.6-5.0 Serum or plasma chloride measurement (moles/volume) 106 mmol/L 98-107 Carbon dioxide 21 mmol/L 21-32 Serum or plasma anion gap determination (moles/volume) 12 mmol/L 5-14 Serum or plasma urea nitrogen measurement (mass/volume ) 18 mg/dL 7-18 Serum or plasma creatinine measurement (mass/volume) 0.84 mg/dL 0.60-1.30 Serum or plasma urea nitrogen/creatinine mass ratio 21 NRG Serum or plasma creatinine measurement w ith calculation of estimated glomerular filtration rate > NRG Serum or plasma glucose measurement (mass/volume) 107 mg/dL 70-105 Serum or plasma calcium measurement (mass/volume) 9.2 mg/dL 8.5-10.1 Serum or plasma total bilirubin measurement (mass/volu me) 0.4 mg/dL 0.1-1.0 Serum or plasma alkaline phosphatase wendi surement (enzymatic activity/volume) 76 U/L 40-136 Serum or plasma aspartate aminotransfera se measurement (enzymatic activity/volume) 29 U/L 5-34 Serum or plasma alanine aminotransferase measurement (enzymatic activity/volume) 50 U/L 0-55 Serum or plasma protein measurement (mass/volume) 6.4 g/dL 6.4-8.2 Serum or plasma albumin measurement (mass/volume) 3.8 g/dL 3.2-4.5 CALCIUM CORRECTED 9.4 mg/dL 8.5-10.1 Magnesium - 01/08/19 12:40 Magnesium 1.7 mg/dL 1.8-2.4 Serum or plasma troponin i.cardiac measu rement (mass/volume) - 01/08/19 12:40 Serum or plasma troponin i.cardiac measurement (mass/v olume) < ng/mL <0.028 Myoglobin, serum - 01/08/19 12:40 Myoglobin, serum 53.7 ng/mL 10.0-92.0 Fibrin D-dimer FEU measurement in platel et poor plasma (mass/volume) - 01/08/19 12:40 Fibrin D-dimer FEU measurement in platelet poor plasma (mass/volume) 0.37 ug/mL 0.00-0.49 Complete blood count (CBC) with automate d white blood cell (WBC) differential - 01/26/19 17:10 Blood leukocytes automated count (number/volume) 8.8 10*3/uL 4.3-11.0 Blood erythrocytes automated count (number/volume) 4.54 10*6/uL 4.35-5.85 Venous blood hemoglobin measurement (mass/volume) 14.5 g/dL 11.5-16.0 Blood hematocrit (volume fraction) 43 % 35-52 Automated erythrocyte mean corpuscular volume 95 [ foz_us] 80-99 Automated erythrocyte mean corpuscular h emoglobin (mass per erythrocyte) 32 pg 25-34 Automated erythrocyte mean corpuscular h emoglobin concentration measurement (mass/volume) 34 g/dL 32-36 Automated erythrocyte distribution width ratio 13. 4 % 10.0- 14.5 Automated blood platelet count (count/volume) 157 10*3/uL 130-400 Automated blood platelet mean volume measurement 10.9 [foz_us] 7.4-10.4 Automated blood neutrophils/100 leukocytes 63 % 42-75 Automated blood lymphocytes/100 leukocytes 27 % 12-44 Blood monocytes/100 leukocytes 10 % 0-12 Automated blood eosinophils/100 leukocytes 1 % 0-10 Automated blood basophils/100 leukocytes 0 % 0-10 Blood neutrophils automated count (number/volume) 5.5 10*3 1.8-7.8 Blood lymphocytes automated count (number/volume) 2.3 10*3 1.0-4.0 Blood monocytes automated count (number/volume) 0. 8 10*3 0.0-1.0 Automated eosinophil count 0.0 10*3/uL 0 .0-0.3 Automated blood basophil count (count/volume) 0.0 10*3/uL 0.0-0.1 Complete urinalysis with reflex to cultu re - 01/26/19 17:10 Urine color determination YELLOW NRG Urine clarity determination CLEAR NR G Urine pH measurement by test strip 6.5 5-9 Specific gravity of urine by test strip 1.020 1.016-1.022 Urine protein assay by test strip, semi-quantitative 1+ NEGATIVE Urine glucose detection by automated test strip NE GATIVE NEGATIVE Erythrocytes detection in urine sediment by light micr oscopy 3+ NEGATIVE Urine ketones detection by automated test strip NE GATIVE NEGATIVE Urine nitrite detection by test strip NEGATIVE NEGATIVE Urine total bilirubin detection by test strip NEGA TIVE NEGATIVE Urine urobilinogen measurement by automated test strip (mass/volume) 0.2 mg/dL NORMAL Urine leukocyte esterase detection by dipstick NEG ATIVE NEGATIVE Automated urine sediment erythrocyte cou nt by microscopy (number/high power field) [HPF] NRG Automated urine sediment leukocyte count by microscopy (number/high power field) [HPF] NRG Bacteria detection in urine sediment by light microsco py FEW NRG Squamous epithelial cells detection in u rine sediment by light microscopy >50 NRG Crystals detection in urine sediment by light microsco py NONE NRG Casts detection in urine sediment by light microscopy NONE NRG Mucus detection in urine sediment by light microscopy MODERATE NRG Complete urinalysis with reflex to culture NO NRG Urine drug screening test - 01/26/19 17: 10 Urine phencyclidine detection by screening method POSITIVE NEGATIVE Urine benzodiazepines detection by screening method NEGATIVE NEGATIVE Urine cocaine detection NEGATIVE NEGATI VE Urine amphetamines detection by screening method N EGATIVE NEGATIVE Urine methamphetamine detection by screening method NEGATIVE NEGATIVE Urine cannabinoids detection by screening method N EGATIVE NEGATIVE Urine opiates detection by screening method NEGATI VE NEGATIVE Urine barbiturates detection NEGATIVE N EGATIVE Screening urine tricyclic antidepressants detection NEGATIVE NEGATIVE Urine methadone detection by screening method NEGA TIVE NEGATIVE Urine oxycodone detection NEGATIVE NEGA TIVE Urine propoxyphene detection NEGATIVE N EGATIVE Comprehensive metabolic panel - 01/26/19 17:10 Serum or plasma sodium measurement (moles/volume) 140 mmol/L 135-145 Serum or plasma potassium measurement (moles/volume) 3.4 mmol/L 3.6-5.0 Serum or plasma chloride measurement (moles/volume) 97 mmol/L 98-107 Carbon dioxide 29 mmol/L 21-32 Serum or plasma anion gap determination (moles/volume) 14 mmol/L 5-14 Serum or plasma urea nitrogen measurement (mass/volume ) 18 mg/dL 7-18 Serum or plasma creatinine measurement (mass/volume) 1.10 mg/dL 0.60-1.30 Serum or plasma urea nitrogen/creatinine mass ratio 16 NRG Serum or plasma creatinine measurement w ith calculation of estimated glomerular filtration rate 53 NRG Serum or plasma glucose measurement (mass/volume) 105 mg/dL 70-105 Serum or plasma calcium measurement (mass/volume) 9.6 mg/dL 8.5-10.1 Serum or plasma total bilirubin measurement (mass/volu me) 0.3 mg/dL 0.1-1.0 Serum or plasma alkaline phosphatase wendi surement (enzymatic activity/volume) 85 U/L 40-136 Serum or plasma aspartate aminotransfera se measurement (enzymatic activity/volume) 31 U/L 5-34 Serum or plasma alanine aminotransferase measurement (enzymatic activity/volume) 48 U/L 0-55 Serum or plasma protein measurement (mass/volume) 7.2 g/dL 6.4-8.2 Serum or plasma albumin measurement (mass/volume) 4.2 g/dL 3.2-4.5 CALCIUM CORRECTED 9.4 mg/dL 8.5-10.1 Serum or plasma C reactive protein measu rement (mass/volume) - 01/26/19 17:10 Serum or plasma C reactive protein measurement (mass/v olume) 0.36 mg/dL 0.00-0.50 Capillary blood glucose measurement by g lucometer (mass/volume) - 01/26/19 17:12 Capillary blood glucose measurement by glucometer (mas s/volume) 101 mg/dL 70-110 TSH w/ FREE T4 - 02/02/19 13:56 TSH 2.73 mIU/L NRG T4, FREE 1.2 ng/dL 0.8-1.8 CBC w/MANUAL DIFF - 02/02/19 13:56 WHITE BLOOD CELL COUNT 5.9 Thousand/uL 3 .8-10.8 RED BLOOD CELL COUNT 4.54 Million/uL 3.8 0-5.10 HEMOGLOBIN 14.4 g/dL 11.7-15.5 HEMATOCRIT 43.6 % 35.0-45.0 MCV 96.0 fL 80.0-100.0 MCH 31.7 pg 27.0-33.0 MCHC 33.0 g/dL 32.0-36.0 RDW 13.2 % 11.0-15.0 PLATELET COUNT 145 Thousand/uL 140-400 MPV 11.3 fL 7.5-12.5 ABSOLUTE NEUTROPHILS 3652 cells/uL 1500- 7800 ABSOLUTE MONOCYTES 59 cells/uL 200-950 ABSOLUTE EOSINOPHILS 124 cells/uL 15-500 ABSOLUTE BASOPHILS 0 cells/uL 0-200 NEUTROPHILS 61.9 % NRG LYMPHOCYTES 35.0 % NRG MONOCYTES 1.0 % NRG EOSINOPHILS 2.1 % NRG BASOPHILS 0 % NRG ABSOLUTE LYMPHOCYTES 2065 cells/uL 850-3 900 PLATELET ESTIMATION DECREASED ADEQUATE COMMENT(S) NRG CMP - 04/18/19 12:57 GLUCOSE 125 mg/dL 65-139 UREA NITROGEN (BUN) 13 mg/dL 7-25 CREATININE 0.88 mg/dL 0.50-1.10 eGFR NON-AFR. [place] 77 mL/min/1.73m2 > OR = 60 eGFR 89 mL/min/1.73m2 > OR = 60 BUN/CREATININE RATIO NOT APPLICABLE (calc) 6-22 SODIUM 138 mmol/L 135-146 POTASSIUM 3.7 mmol/L 3.5-5.3 CHLORIDE 100 mmol/L 98-110 CARBON DIOXIDE 30 mmol/L 20-32 CALCIUM 9.2 mg/dL 8.6-10.2 PROTEIN, TOTAL 6.2 g/dL 6.1-8.1 ALBUMIN 4.1 g/dL 3.6-5.1 GLOBULIN 2.1 g/dL (calc) 1.9-3.7 ALBUMIN/GLOBULIN RATIO 2.0 (calc) 1.0-2. 5 BILIRUBIN, TOTAL 0.4 mg/dL 0.2-1.2 ALKALINE PHOSPHATASE 74 U/L 33-115 AST 30 U/L 10-35 ALT 43 U/L 6-29 CBC w/MANUAL DIFF - 04/18/19 12:57 WHITE BLOOD CELL COUNT 5.2 Thousand/uL 3 .8-10.8 RED BLOOD CELL COUNT 4.15 Million/uL 3.8 0-5.10 HEMOGLOBIN 12.9 g/dL 11.7-15.5 HEMATOCRIT 39.2 % 35.0-45.0 MCV 94.5 fL 80.0-100.0 MCH 31.1 pg 27.0-33.0 MCHC 32.9 g/dL 32.0-36.0 RDW 13.6 % 11.0-15.0 PLATELET COUNT 150 Thousand/uL 140-400 MPV 10.8 fL 7.5-12.5 ABSOLUTE NEUTROPHILS 3120 cells/uL 1500- 7800 ABSOLUTE MONOCYTES 208 cells/uL 200-950 ABSOLUTE EOSINOPHILS 0 cells/uL 15-500 ABSOLUTE BASOPHILS 0 cells/uL 0-200 NEUTROPHILS 60.0 % NRG LYMPHOCYTES 36.0 % NRG MONOCYTES 4.0 % NRG EOSINOPHILS 0 % NRG BASOPHILS 0 % NRG ABSOLUTE LYMPHOCYTES 1872 cells/uL 850-3 900 PLATELET ESTIMATION ADEQUATE ADEQUATE COMMENT(S) NRG Complete blood count (CBC) with automate d white blood cell (WBC) differential - 04/18/19 20:40 Blood leukocytes automated count (number/volume) 5.6 10*3/uL 4.3-11.0 Blood erythrocytes automated count (number/volume) 4.22 10*6/uL 4.35-5.85 Venous blood hemoglobin measurement (mass/volume) 13.4 g/dL 11.5-16.0 Blood hematocrit (volume fraction) 39 % 35-52 Automated erythrocyte mean corpuscular volume 92 [ foz_us] 80-99 Automated erythrocyte mean corpuscular h emoglobin (mass per erythrocyte) 32 pg 25-34 Automated erythrocyte mean corpuscular h emoglobin concentration measurement (mass/volume) 35 g/dL 32-36 Automated erythrocyte distribution width ratio 13. 1 % 10.0- 14.5 Automated blood platelet count (count/volume) 149 10*3/uL 130-400 Automated blood platelet mean volume measurement 10.9 [foz_us] 7.4-10.4 Automated blood neutrophils/100 leukocytes 55 % 42-75 Automated blood lymphocytes/100 leukocytes 36 % 12-44 Blood monocytes/100 leukocytes 9 % 0-12 Automated blood eosinophils/100 leukocytes 0 % 0-10 Automated blood basophils/100 leukocytes 0 % 0-10 Blood neutrophils automated count (number/volume) 3.1 10*3 1.8-7.8 Blood lymphocytes automated count (number/volume) 2.0 10*3 1.0-4.0 Blood monocytes automated count (number/volume) 0. 5 10*3 0.0-1.0 Automated eosinophil count 0.0 10*3/uL 0 .0-0.3 Automated blood basophil count (count/volume) 0.0 10*3/uL 0.0-0.1 Comprehensive metabolic panel - 04/18/19 20:40 Serum or plasma sodium measurement (moles/volume) 141 mmol/L 135-145 Serum or plasma potassium measurement (moles/volume) 3.6 mmol/L 3.6-5.0 Serum or plasma chloride measurement (moles/volume) 102 mmol/L 98-107 Carbon dioxide 29 mmol/L 21-32 Serum or plasma anion gap determination (moles/volume) 10 mmol/L 5-14 Serum or plasma urea nitrogen measurement (mass/volume ) 12 mg/dL 7-18 Serum or plasma creatinine measurement (mass/volume) 0.80 mg/dL 0.60-1.30 Serum or plasma urea nitrogen/creatinine mass ratio 15 NRG Serum or plasma creatinine measurement w ith calculation of estimated glomerular filtration rate > NRG Serum or plasma glucose measurement (mass/volume) 147 mg/dL 70-105 Serum or plasma calcium measurement (mass/volume) 9.5 mg/dL 8.5-10.1 Serum or plasma total bilirubin measurement (mass/volu me) 0.2 mg/dL 0.1-1.0 Serum or plasma alkaline phosphatase wendi surement (enzymatic activity/volume) 94 U/L 40-136 Serum or plasma aspartate aminotransfera se measurement (enzymatic activity/volume) 40 U/L 5-34 Serum or plasma alanine aminotransferase measurement (enzymatic activity/volume) 51 U/L 0-55 Serum or plasma protein measurement (mass/volume) 7.0 g/dL 6.4-8.2 Serum or plasma albumin measurement (mass/volume) 4.2 g/dL 3.2-4.5 CALCIUM CORRECTED 9.3 mg/dL 8.5-10.1 Lipase - 04/18/19 20:40 Lipase 45 U/L 8-78 Complete urinalysis with reflex to cultu re - 04/18/19 20:55 Urine color determination DARK YELLOW N RG Urine clarity determination CLEAR NR G Urine pH measurement by test strip 6.5 5-9 Specific gravity of urine by test strip >= 1.016-1.022 Urine protein assay by test strip, semi-quantitative 2+ NEGATIVE Urine glucose detection by automated test strip NE GATIVE NEGATIVE Erythrocytes detection in urine sediment by light micr oscopy 3+ NEGATIVE Urine ketones detection by automated test strip NE GATIVE NEGATIVE Urine nitrite detection by test strip NEGATIVE NEGATIVE Urine total bilirubin detection by test strip NEGA TIVE NEGATIVE Urine urobilinogen measurement by automated test strip (mass/volume) 0.2 mg/dL NORMAL Urine leukocyte esterase detection by dipstick NEG ATIVE NEGATIVE Automated urine sediment erythrocyte cou nt by microscopy (number/high power field) [HPF] NRG Automated urine sediment leukocyte count by microscopy (number/high power field) RARE NRG Bacteria detection in urine sediment by light microsco py NEGATIVE NRG Squamous epithelial cells detection in u rine sediment by light microscopy 5-10 NRG Crystals detection in urine sediment by light microsco py NONE NRG Casts detection in urine sediment by light microscopy NONE NRG Mucus detection in urine sediment by light microscopy SMALL NRG Complete urinalysis with reflex to culture NO NRG Urine beta human chorionic gonadotropin (hCG) measurement - 04/25/19 11:31 Urine beta human chorionic gonadotropin (hCG) measurem ent NEGATIVE NEGATIVE Complete urinalysis with reflex to cultu re - 04/25/19 11:31 Urine color determination YELLOW NRG Urine clarity determination CLEAR NR G Urine pH measurement by test strip 6.0 5-9 Specific gravity of urine by test strip 1.025 1.016-1.022 Urine protein assay by test strip, semi-quantitative 2+ NEGATIVE Urine glucose detection by automated test strip NE GATIVE NEGATIVE Erythrocytes detection in urine sediment by light micr oscopy 3+ NEGATIVE Urine ketones detection by automated test strip NE GATIVE NEGATIVE Urine nitrite detection by test strip NEGATIVE NEGATIVE Urine total bilirubin detection by test strip NEGA TIVE NEGATIVE Urine urobilinogen measurement by automated test strip (mass/volume) 0.2 mg/dL NORMAL Urine leukocyte esterase detection by dipstick NEG ATIVE NEGATIVE Automated urine sediment erythrocyte cou nt by microscopy (number/high power field) [HPF] NRG Automated urine sediment leukocyte count by microscopy (number/high power field) [HPF] NRG Bacteria detection in urine sediment by light microsco py TRACE NRG Squamous epithelial cells detection in u rine sediment by light microscopy 2-5 NRG Crystals detection in urine sediment by light microsco py NONE NRG Casts detection in urine sediment by light microscopy NONE NRG Mucus detection in urine sediment by light microscopy NONE NRG Complete urinalysis with reflex to culture NO NRG Complete blood count (CBC) with automate d white blood cell (WBC) differential - 04/25/19 11:55 Blood leukocytes automated count (number/volume) 4.8 10*3/uL 4.3-11.0 Blood erythrocytes automated count (number/volume) 4.01 10*6/uL 4.35-5.85 Venous blood hemoglobin measurement (mass/volume) 12.7 g/dL 11.5-16.0 Blood hematocrit (volume fraction) 37 % 35-52 Automated erythrocyte mean corpuscular volume 92 [ foz_us] 80-99 Automated erythrocyte mean corpuscular h emoglobin (mass per erythrocyte) 32 pg 25-34 Automated erythrocyte mean corpuscular h emoglobin concentration measurement (mass/volume) 34 g/dL 32-36 Automated erythrocyte distribution width ratio 13. 1 % 10.0- 14.5 Automated blood platelet count (count/volume) 151 10*3/uL 130-400 Automated blood platelet mean volume measurement 10.7 [foz_us] 7.4-10.4 Automated blood neutrophils/100 leukocytes 55 % 42-75 Automated blood lymphocytes/100 leukocytes 34 % 12-44 Blood monocytes/100 leukocytes 9 % 0-12 Automated blood eosinophils/100 leukocytes 1 % 0-10 Automated blood basophils/100 leukocytes 0 % 0-10 Blood neutrophils automated count (number/volume) 2.7 10*3 1.8-7.8 Blood lymphocytes automated count (number/volume) 1.6 10*3 1.0-4.0 Blood monocytes automated count (number/volume) 0. 5 10*3 0.0-1.0 Automated eosinophil count 0.0 10*3/uL 0 .0-0.3 Automated blood basophil count (count/volume) 0.0 10*3/uL 0.0-0.1 Comprehensive metabolic panel - 04/25/19 11:55 Serum or plasma sodium measurement (moles/volume) 139 mmol/L 135-145 Serum or plasma potassium measurement (moles/volume) 3.8 mmol/L 3.6-5.0 Serum or plasma chloride measurement (moles/volume) 100 mmol/L 98-107 Carbon dioxide 27 mmol/L 21-32 Serum or plasma anion gap determination (moles/volume) 12 mmol/L 5-14 Serum or plasma urea nitrogen measurement (mass/volume ) 11 mg/dL 7-18 Serum or plasma creatinine measurement (mass/volume) 0.79 mg/dL 0.60-1.30 Serum or plasma urea nitrogen/creatinine mass ratio 14 NRG Serum or plasma creatinine measurement w ith calculation of estimated glomerular filtration rate > NRG Serum or plasma glucose measurement (mass/volume) 156 mg/dL 70-105 Serum or plasma calcium measurement (mass/volume) 9.4 mg/dL 8.5-10.1 Serum or plasma total bilirubin measurement (mass/volu me) 0.3 mg/dL 0.1-1.0 Serum or plasma alkaline phosphatase wendi surement (enzymatic activity/volume) 81 U/L 40-136 Serum or plasma aspartate aminotransfera se measurement (enzymatic activity/volume) 32 U/L 5-34 Serum or plasma alanine aminotransferase measurement (enzymatic activity/volume) 44 U/L 0-55 Serum or plasma protein measurement (mass/volume) 6.5 g/dL 6.4-8.2 Serum or plasma albumin measurement (mass/volume) 3.9 g/dL 3.2-4.5 CALCIUM CORRECTED 9.5 mg/dL 8.5-10.1 Lipase - 04/25/19 11:55 Lipase 38 U/L 8-78 Comprehensive metabolic panel - 05/13/19 12:15 Serum or plasma sodium measurement (moles/volume) 143 mmol/L 135-145 Serum or plasma potassium measurement (moles/volume) 3.8 mmol/L 3.6-5.0 Serum or plasma chloride measurement (moles/volume) 103 mmol/L 98-107 Carbon dioxide 30 mmol/L 21-32 Serum or plasma anion gap determination (moles/volume) 10 mmol/L 5-14 Serum or plasma urea nitrogen measurement (mass/volume ) 11 mg/dL 7-18 Serum or plasma creatinine measurement (mass/volume) 0.93 mg/dL 0.60-1.30 Serum or plasma urea nitrogen/creatinine mass ratio 12 NRG Serum or plasma creatinine measurement w ith calculation of estimated glomerular filtration rate > NRG Serum or plasma glucose measurement (mass/volume) 182 mg/dL 70-105 Serum or plasma calcium measurement (mass/volume) 9.1 mg/dL 8.5-10.1 Serum or plasma total bilirubin measurement (mass/volu me) 0.4 mg/dL 0.1-1.0 Serum or plasma alkaline phosphatase wendi surement (enzymatic activity/volume) 85 U/L 40-136 Serum or plasma aspartate aminotransfera se measurement (enzymatic activity/volume) 36 U/L 5-34 Serum or plasma alanine aminotransferase measurement (enzymatic activity/volume) 45 U/L 0-55 Serum or plasma protein measurement (mass/volume) 6.3 g/dL 6.4-8.2 Serum or plasma albumin measurement (mass/volume) 3.7 g/dL 3.2-4.5 CALCIUM CORRECTED 9.3 mg/dL 8.5-10.1 TROPONIN I FS - 05/13/19 12:15 TROPONIN I FS < 0.30 <0.30 PROBNP FS - 05/13/19 12:15 PROBNP FS 40.6 pg/mL <75.0 Complete blood count (CBC) with automate d white blood cell (WBC) differential - 05/13/19 12:15 Blood leukocytes automated count (number/volume) 4.6 10*3/uL 4.3-11.0 Blood erythrocytes automated count (number/volume) 4.03 10*6/uL 4.35-5.85 Venous blood hemoglobin measurement (mass/volume) 12.4 g/dL 11.5-16.0 Blood hematocrit (volume fraction) 38 % 35-52 Automated erythrocyte mean corpuscular volume 95 [ foz_us] 80-99 Automated erythrocyte mean corpuscular h emoglobin (mass per erythrocyte) 31 pg 25-34 Automated erythrocyte mean corpuscular h emoglobin concentration measurement (mass/volume) 33 g/dL 32-36 Automated erythrocyte distribution width ratio 13. 2 % 10.0- 14.5 Automated blood platelet count (count/volume) 121 10*3/uL 130-400 Automated blood platelet mean volume measurement 11.0 [foz_us] 7.4-10.4 Automated blood neutrophils/100 leukocytes 57 % 42-75 Automated blood lymphocytes/100 leukocytes 34 % 12-44 Blood monocytes/100 leukocytes 9 % 0-12 Automated blood eosinophils/100 leukocytes 0 % 0-10 Automated blood basophils/100 leukocytes 0 % 0-10 Blood neutrophils automated count (number/volume) 2.6 10*3 1.8-7.8 Blood lymphocytes automated count (number/volume) 1.6 10*3 1.0-4.0 Blood monocytes automated count (number/volume) 0. 4 10*3 0.0-1.0 Automated eosinophil count 0.0 10*3/uL 0 .0-0.3 Automated blood basophil count (count/volume) 0.0 10*3/uL 0.0-0.1 PT panel in platelet poor plasma by coag ulation assay - 05/13/19 12:15 Prothrombin time (PT) in platelet poor plasma by coagu lation assay 12.7 s 12.2-14.7 INR in platelet poor plasma or blood by coagulation as say 0.9 0.8-1.4 Activated partial thromboplastin time (a PTT) in platelet poor plasma bycoagulation assay - 05/13/19 12:15 Activated partial thromboplastin time (a PTT) in platelet poor plasma bycoagulation assay 26 s 24-35 Complete urinalysis with reflex to cultu re - 05/13/19 12:55 Urine color determination YELLOW NRG Urine clarity determination CLEAR NR G Urine pH measurement by test strip 6.0 5-9 Specific gravity of urine by test strip 1.025 1.016-1.022 Urine protein assay by test strip, semi-quantitative TRACE NEGATIVE Urine glucose detection by automated test strip NE GATIVE NEGATIVE Erythrocytes detection in urine sediment by light micr oscopy 2+ NEGATIVE Urine ketones detection by automated test strip NE GATIVE NEGATIVE Urine nitrite detection by test strip NEGATIVE NEGATIVE Urine total bilirubin detection by test strip NEGA TIVE NEGATIVE Urine urobilinogen measurement by automated test strip (mass/volume) 0.2 mg/dL < = 1.0 Urine leukocyte esterase detection by dipstick NEG ATIVE NEGATIVE Automated urine sediment erythrocyte cou nt by microscopy (number/high power field) [HPF] NRG Automated urine sediment leukocyte count by microscopy (number/high power field) [HPF] NRG Bacteria detection in urine sediment by light microsco py MODERATE NRG Squamous epithelial cells detection in u rine sediment by light microscopy 10-25 NRG Crystals detection in urine sediment by light microsco py NONE NRG Casts detection in urine sediment by light microscopy NONE NRG Mucus detection in urine sediment by light microscopy SMALL NRG Complete urinalysis with reflex to culture NO NRG Serum or plasma C reactive protein measu rement (mass/volume) - 06/08/19 10:25 Serum or plasma C reactive protein measurement (mass/v olume) 0.97 mg/dL 0.00-0.50 Erythrocyte sedimentation rate by nora gren method - 06/08/19 10:25 Erythrocyte sedimentation rate by westergren method 21 mm 0- 20 [id number] - 06/08/19 10:25 Screening antinuclear antibody (DONALDO) assay by enzyme i mmunoassay Positive <1:80 Serum nuclear antibody pattern interpretation DFS NRG Serum nuclear antibody titer < 1:80 Methicillin resistant Staphylococcus aur eus (MRSA) screening culture - 06/08/19 13:00 Methicillin resistant Staphylococcus aureus (MRSA) scr eening culture NEG NRG Methicillin resistant Staphylococcus aur eus (MRSA) screening culture - 06/14/19 09:30 Methicillin resistant Staphylococcus aureus (MRSA) scr eening culture NEG NRG THYROID STIMULATING HORMONE - 08/08/19 1 0:05 THYROID STIMULATING HORMONE 4.23 u[iU]/mL 0.35-4.94 Serum or plasma thyroxine (T4) free frank urement (mass/volume) - 08/08/19 10:05 Serum or plasma thyroxine (T4) free measurement (mass/ volume) 0.97 ng/dL 0.70-1.48 [id number] - 08/08/19 10:05 Screening antinuclear antibody (DONALDO) assay by enzyme i mmunoassay Positive <1:80 Serum nuclear antibody pattern interpretation DFS NRG Serum nuclear antibody titer < 1:80 VITAMIN B 12 - 08/08/19 10:05 VITAMIN B 12 476 pg/mL 190-1100 VITAMIN D FRACTIONATED D2 D3 - 08/08/19 10:05 Serum or plasma cholecalciferol (vitamin D3) measurement (mass/volume) 16.58 % NRG Serum or plasma 25-hydroxycalciferol measurement (mass /volume) < % NRG VITAMIN D, 25-OH (TOTAL) 16.58 % 30.00 -100.00 CELIAC PANEL - 08/08/19 10:05 Serum tissue transglutaminase IgA antibody detection <20.0 0.0-19.9 Serum gliadin IgA antibody assay (units/volume) < % 0.0-19.9 Gliadin IgG antibody assay < % 0.0 -19.9 Serum or plasma IgA measurement (mass/volume) 205. 0 % 84.5- 499.0 Complete blood count (CBC) with automate d white blood cell (WBC) differential - 08/23/19 16:40 Blood leukocytes automated count (number/volume) 9.7 10*3/uL 4.3-11.0 Blood erythrocytes automated count (number/volume) 4.89 10*6/uL 4.35-5.85 Venous blood hemoglobin measurement (mass/volume) 15.0 g/dL 11.5-16.0 Blood hematocrit (volume fraction) 45 % 35-52 Automated erythrocyte mean corpuscular volume 91 [ foz_us] 80-99 Automated erythrocyte mean corpuscular h emoglobin (mass per erythrocyte) 31 pg 25-34 Automated erythrocyte mean corpuscular h emoglobin concentration measurement (mass/volume) 34 g/dL 32-36 Automated erythrocyte distribution width ratio 13. 0 % 10.0- 14.5 Automated blood platelet count (count/volume) 183 10*3/uL 130-400 Automated blood platelet mean volume measurement 10.8 [foz_us] 7.4-10.4 Automated blood neutrophils/100 leukocytes 64 % 42-75 Automated blood lymphocytes/100 leukocytes 26 % 12-44 Blood monocytes/100 leukocytes 9 % 0-12 Automated blood eosinophils/100 leukocytes 0 % 0-10 Automated blood basophils/100 leukocytes 0 % 0-10 Blood neutrophils automated count (number/volume) 6.2 10*3 1.8-7.8 Blood lymphocytes automated count (number/volume) 2.6 10*3 1.0-4.0 Blood monocytes automated count (number/volume) 0. 9 10*3 0.0-1.0 Automated eosinophil count 0.0 10*3/uL 0 .0-0.3 Automated blood basophil count (count/volume) 0.0 10*3/uL 0.0-0.1 Comprehensive metabolic panel - 08/23/19 16:40 Serum or plasma sodium measurement (moles/volume) 143 mmol/L 135-145 Serum or plasma potassium measurement (moles/volume) 3.7 mmol/L 3.6-5.0 Serum or plasma chloride measurement (moles/volume) 101 mmol/L 98-107 Carbon dioxide 29 mmol/L 21-32 Serum or plasma anion gap determination (moles/volume) 13 mmol/L 5-14 Serum or plasma urea nitrogen measurement (mass/volume ) 16 mg/dL 7-18 Serum or plasma creatinine measurement (mass/volume) 0.97 mg/dL 0.60-1.30 Serum or plasma urea nitrogen/creatinine mass ratio 16 NRG Serum or plasma creatinine measurement w ith calculation of estimated glomerular filtration rate > NRG Serum or plasma glucose measurement (mass/volume) 98 mg/dL 70-105 Serum or plasma calcium measurement (mass/volume) 9.3 mg/dL 8.5-10.1 Serum or plasma total bilirubin measurement (mass/volu me) 0.3 mg/dL 0.1-1.0 Serum or plasma alkaline phosphatase wendi surement (enzymatic activity/volume) 110 U/L 40-136 Serum or plasma aspartate aminotransfera se measurement (enzymatic activity/volume) 44 U/L 5-34 Serum or plasma alanine aminotransferase measurement (enzymatic activity/volume) 86 U/L 0-55 Serum or plasma protein measurement (mass/volume) 7.2 g/dL 6.4-8.2 Serum or plasma albumin measurement (mass/volume) 4.3 g/dL 3.2-4.5 CALCIUM CORRECTED 9.1 mg/dL 8.5-10.1 TROPONIN I FS - 08/23/19 16:40 TROPONIN I FS < 0.30 <0.30 TSH - 09/13/19 10:39 TSH 3.53 mIU/L NRG VITAMIN D, 25-H - 09/13/19 10:39 VITAMIN D,25-OH,TOTAL,IA 16 ng/mL 30-10 0 Encounters ACCT No. Visit Date/Time Discharge Status Pt. Type Provider Facility Loc./Unit Complaint [id number] 10/12/2014 09:53:00 10/12/2014 23:59: 59 CLS Outpatient KIM MITCHELL MD [id number] 06/18/2014 09:06:00 06/18/2014 23:59: 59 CLS Outpatient DANIELA JACOBSON DDS [id number] 04/23/2014 15:22:00 04/23/2014 23:59: 59 CLS Outpatient KIM MITCHELL MD [id number] 04/23/2014 15:22:00 04/23/2014 23:59: 59 CLS Outpatient KIM MITCHELL MD [id number] 04/06/2014 11:00:00 04/06/2014 23:59: 59 CLS Outpatient KIM MITCHELL MD [id number] 04/03/2014 17:30:00 04/03/2014 23:59: 59 CLS Outpatient KIM MITCHELL MD [id number] 02/18/2017 08:36:00 Document Registration [id number] 10/21/2019 11:08:00 12:03:00 DIS Emergency SUMMER RICH DO [facility] ER FS BACK PAIN [id number] 09/15/2019 14:15:00 23:59:59 CLS Preadmit OTHER, UNLISTED [facility] RAD FS DIFUSE ABD PAIN,ABD MES H [id number] 08/23/2019 16:37:00 18:02:00 DIS Outpatient ABRIL RODRIGUEZ DO [facility] ER FS CHEST PAIN,HEAD ACHE [id number] 08/08/2019 10:09:00 23:59:59 CLS Outpatient RACHEL IGNACIO, JEREMY Waterman [facility] LAB FS ABD PAIN [id number] 08/07/2019 13:15:00 13:59:00 DIS Emergency JUAN KUMAR DO [facility] ER FS SACRUM PAIN [id number] 07/04/2019 19:30:00 20:55:00 DIS Outpatient MYRTLE FABIAN MD [facility] ER FS KNEE/HIP PAIN [id number] 06/28/2019 03:30:00 06:31:00 DIS Emergency TJ VALENCIA MD [facility] ER FS KNEE PAIN, FALL [id number] 06/14/2019 09:00:00 14:45:00 DIS Outpatient JIM IGNACIO, ELAINA Aguillon [facility] RIGHT MEDIAL MENISCUS TEAR [id number] 06/08/2019 10:09:00 23:59:59 CLS Outpatient DENAE MORRIS DO [facility] RAD HYPOTHYROIDISM [id number] 06/08/2019 11:20:00 13:00:00 DIS Outpatient JIM IGNACIO, ELAINA Aguillon [facility] PREOP RIGHT MEDIAL MENISCUS TEAR [id number] 06/05/2019 17:46:00 19:00:00 DIS Outpatient LYLA LANGE MD [facility] ER FS CAT BITE [id number] 05/13/2019 11:51:00 14:54:00 DIS Emergency AMAURI IGNACIO, VEGA West [facility] ER FS CHEST PAIN [id number] 04/25/2019 11:15:00 13:39:00 DIS Outpatient CONRADO ESPINO DO [facility] ER FS GENERAL PAIN; ABD PAIN; URINARY INCONTINENCE [id number] 04/18/2019 11:38:00 23:59:59 CLS Outpatient KITTY JAMA 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 [facility] RAD FS R10.10 [id number] 04/18/2019 20:00:00 22:44:00 DIS Outpatient WILLIAM DE LA VEGA DO [facility] ER FS STOMACH PAIN [id number] 03/27/2019 12:30:00 12:30:00 CAN Preadmit JENELLE KATZ 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 [facility] RAD THORACIC PAIN [id number] 03/06/2019 13:29:00 14:27:00 DIS Emergency ELEN POLLACK MD [facility] ER DRAIN TUBE PROBLEMS [id number] 02/15/2019 19:45:00 21:41:00 DIS Outpatient LYLA LANGE MD [facility] ER FS MEDICAL COMPLICATIONS [id number] 02/09/2019 22:28:00 23:14:00 DIS Outpatient WILLIAM DE LA VEGA DO [facility] ER FS LT LEG INJ AND SWELLING [id number] 01/26/2019 16:45:00 18:48:00 DIS Outpatient JUAN KUMAR DO [facility] ER FS HEADACHE,DIZZY [id number] 01/24/2019 02:23:00 03:07:00 DIS Emergency LANDEN CHAVIS DO [facility] ER FS SEVERE HEADACHE [id number] 01/08/2019 12:17:00 14:54:00 DIS Emergency SOPHIA IGNACIO, EVARISTO Waterman [facility] ER INTERMITTENT L SIDE PAUL ST/BACK PAIN [id number] 12/12/2018 08:48:00 23:59:59 CLS Outpatient ANISA IGNACIO, LYLA Murphy [facility] RAD RECURRENT VENTRAL HERNI A [id number] 12/09/2018 19:22:00 06:30:00 DIS Outpatient ELAINA RAMÍREZ [facility] SLEEP LYDIA [id number] 12/05/2018 23:12:00 23:42:00 DIS Emergency YUMIKO PUGH DO [facility] ER FS ABD PAIN;SWELLING IN HANDS,KNEES,THIGHS [id number] 12/04/2018 00:02:00 04:48:00 DIS Emergency LYLA LANGE MD [facility] ER FS ABDOMINAL PAIN [id number] 12/01/2018 11:22:00 23:59:59 CLS Outpatient BERNA SPRING MD [facility] RAD FS [id number] [id number] 11/28/2018 14:11:00 17:24:00 DIS Emergency VEGA BAUGH MD Via [facility] ER FS ABD PAIN [id number] 11/22/2018 22:26:00 02:10:00 DIS Emergency ELEN POLLACK MD [facility] ER FS ABD PAIN [id number] 11/14/2018 12:58:00 23:59:59 CLS Outpatient ELAINA RAMÍREZ [facility] RAD LUMBAR DEGENERATIVE DI SC DISEASE [id number] 11/08/2018 11:39:00 14:36:00 DIS Emergency PUGH YUMIKO LACY [facility] ER FS ABD PAIN [id number] 11/03/2018 02:47:00 06:00:00 DIS Emergency LYLA LANGE MD Via [facility] ER FS LIGHT HEADED;HEADACHE [id number] 10/03/2018 22:16:00 02:50:00 DIS Emergency LYLA LNAGE MD Via [facility] ER FS ABD PAIN [id number] 09/01/2018 16:40:00 17:08:00 DIS Emergency PUGH YUMIKO LACY Via [facility] ER FS ABD PAIN,SOB [id number] 08/29/2018 12:40:00 16:10:00 DIS Emergency LEONIDES ALFARO MD Via [facility] ER FS ABD PAIN [id number] 08/05/2018 14:05:00 23:59:59 CLS Outpatient 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 WIGGINS 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 [facility] RAD BILATERAL LOWER EXTREMI TY EDEMA [id number] 07/19/2018 07:12:00 13:06:00 DIS Outpatient LUCIA IGNACIO FACC, NICHELLE PIERCE CC DS [facility] CATH CHEST DISCOMFORT,PALPITATIONS,SOB,OBESITY [id number] 07/15/2018 14:57:00 23:59:59 CLS Outpatient ECTOR GR BIAS 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 [facility] RAD RLQ ABD PAIN [id number] 07/08/2018 14:13:00 23:59:59 CLS Preadmit NICHELLE MYERS MD, FACC, FACP CCDS [facility] CARD CHEST DISCOMFORT,PALPITATIONS,SOB,OBESITY [id number] 07/08/2018 14:13:00 23:59:59 CLS Preadmit NICHELLE MYERS MD, FACC, FACP CCDS [facility] CARD CHEST DISCOMFORT,PALPITATIONS,SOB,OBESITY [id number] 07/06/2018 14:48:00 019 23:59:59 CLS Outpatient ARIES ROBERTS MD (DDU) [facility] RT ASTHMA [id number] 06/27/2018 18:28:00 018 22:02:00 DIS Emergency EDDI RAMIREZ [facility] ER LETHARGIC,BODY ACHES [id number] 05/14/2017 08:00:00 017 23:59:59 CLS Preadmit 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 M25.562 ACUTE PAIN OF L EFT KNEE [id number] 12/20/2016 15:40:00 017 19:24:00 DIS Emergency JEANNETTE BELLO APRN [facility] ER ABD PAIN [id number] 12/19/2016 21:59:00 017 22:41:00 DIS Emergency GENA DORADHA a [facility] ER L SIDE STOMACH PAIN/HOT FLASHES [id number] 03/18/2017 14:10:00 Document Registration [id number] 07/28/2016 14:20:42 07/28/2016 14:2 0:42 DIS Outpatient [facility] [id number] 03/18/2017 08:44:00 Document Registration [id number] 02/17/2019 13:00:00 02/17/2019 23:59:5 9 CLS Outpatient KITTY JAMA [facility] [id number] 09/13/2019 09:40:00 Document Registration [id number] 04/18/2019 10:40:00 Document Registration [id number] 02/02/2019 13:20:00 Document Registration [id number] 05/04/2017 08:40:00 Document Registration [id number] 03/17/2017 09:40:00 Document Registration [id number] 07/12/2017 16:59:00 8 00:16:00 DIS Emergency Kacey Giron [facility] ER Cardiac
[2020-01-07] MEDS ORDERED: NS IV 1000 ML 1,000 ML IV SCH (11:00)
[2020-01-07] MEDS ORDERED: fentaNYL INJECTION 100 MCG/2 ML AMP IVP ONE ×2 (11:00→12:45)
--- NOTE | 2020-01-07 11:04 | ED Abdominal Pain ---
General Chief Complaint: Abdominal/GI Problems Stated Complaint: STOMACH PAIN Nursing Triage Note: Abdominal pain started two days ago. Has a seroma in RLQ and this is where the pain is located. States this feels like her normal abdominal pain just worse. Has been unable to get out of bed for two days. Denies fevers, nausea, vomiting, or diarrhea. Has ultram for back pain but has not taken any in the past two days. Sepsis Screen: No Definite Risk History of Present Illness Date Seen by Provider: Jan 07, 2020 Time Seen by Provider: 11:00 Initial Comments Pt presents with RLQ abdominal pain x 2 days. She reports prior abdominal surgeries, says that she has a history of a seroma that has required drainage before and that is what the pain feels like. No fever, no vomiting or diarrhea. She does describe some urinary urgency. Allergies and Home Medications Allergies Coded Allergies: tetracycline (Verified Allergy, Severe, N/V, 06/08/19) Sulfa (Sulfonamide Antibiotics) (Verified Allergy, Mild, N/V, 06/08/19) hydroxyzine (Verified Allergy, Mild, "JITTERS", 06/08/19) melatonin (Verified Allergy, Mild, NIGHTMARES, 06/08/19) prochlorperazine (Verified Allergy, Mild, "JITTERS", 06/08/19) Home Medications Albuterol Sulfate 1 Puff Puff, 2 PUFF IH Q4H PRN for SHORTNESS OF BREATH, (Reported) 1 PUFF = 90 MCG Cyclobenzaprine HCl 10 Mg Tablet, 10 MG PO BID PRN for PRN, (Reported) Cyclobenzaprine HCl 10 Mg Tablet, 10 MG PO BID PRN for SPASMS Prescribed by: JUAN KUMAR on 08/07/19 1347 Diclofenac Sodium 100 Gm Gel..gram., 100 GM TP Q6H PRN for PAIN-SEVERE (8-10) Prescribed by: SUMMER RICH on 10/21/19 1159 Furosemide 40 Mg Tablet, 40 MG PO DAILY, (Reported) Gabapentin 300 Mg Capsule, 300 MG PO TID, (Reported) Hydrocodone Bit/Acetaminophen 1 Each Tablet, 1 TAB PO Q4H Prescribed by: CARMENCITA FAYE on 06/14/19 1434 Ibuprofen 800 Mg Tablet, 800 MG PO Q8H PRN for PAIN-MILD Prescribed by: ABRIL RODRIGUEZ on 08/23/19 1755 Levothyroxine Sodium 50 Mcg Tablet, 50 MCG PO DAILY, (Reported) Methocarbamol 500 Mg Tablet, 500 MG PO BID PRN for PAIN-MODERATE (5-7), (Reported) Methylprednisolone 4 Mg Tab.ds.pk, 4 MG PO UD PER DOSE PACK INSTRUCTIONS Prescribed by: SUMMER RICH on 10/21/19 1159 Ondansetron 4 Mg Tab.rapdis, 4 MG PO Q6H PRN for NAUSEA/VOMITING Prescribed by: JUAN KUMAR on 08/07/19 1347 Ondansetron HCl 4 Mg Tab, 4 MG PO PRN PRN for NAUSEA/VOMITING, (Reported) Trazodone HCl 150 Mg Tablet, 150 MG PO HS, (Reported) Venlafaxine HCl 75 Mg Tab, 75 MG PO BID, (Reported) Patient Home Medication List Home Medication List Reviewed: Yes Review of Systems Review of Systems Constitutional: No chills, No fever EENTM: No Eye Pain, No Nose Congestion Respiratory: Denies Cough, Denies Shortness of Air Cardiovascular: Denies Chest Pain, Denies Syncope Gastrointestinal: Abdominal Pain; Denies Nausea, Denies Vomiting Genitourinary: Frequency, Urgency Musculoskeletal: back pain; No neck pain Skin: No change in color, No rash Psychiatric/Neurological: No Symptoms Reported Endocrine: No Symptoms Reported Hematologic/Lymphatic: No Symptoms Reported Past Nlnrasf-Bnbbve-Wfwore Hx Patient Social History Alcohol Use: Denies Use Recreational Drug Use: No Smoking Status: Former Smoker Type Used: Cigarettes Former Smoker, Quit: Jun 15, 1996 2nd Hand Smoke Exposure: No Recent Foreign Travel: No Contact w/Someone Who Travel: No Recent Infectious Disease Expo: No Recent Hopitalizations: No Immunizations Up To Date Tetanus Booster (TDap): Less than 5yrs PED Vaccines UTD: Yes Date of Pneumonia Vaccine: Apr 18, 2013 Date of Influenza Vaccine: Apr 03, 2019 Seasonal Allergies Seasonal Allergies: No Past Medical History Surgeries: Yes (HERNIA X3) Abdominal, Appendectomy, Gallbladder, Hysterectomy, Tonsillectomy Respiratory: Yes Asthma, Sleep Apnea Currently Using CPAP: No Currently Using BIPAP: No Cardiac: No Chronic Edema/Swelling Neurological: Yes Headaches /Migraines 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 Sexually Transmitted Disease: No HIV/AIDS: No Genitourinary: No Gastrointestinal: Yes Abdominal Hernia, Chronic Constipation, Chronic Diarrhea Musculoskeletal: Yes (scoliosis, knee pain back pain) Chronic Back Pain Endocrine: Yes (MERLIN'S) Hypothyroidsim HEENT: Yes Loss of Vision: Denies Hearing Impairment: Denies Cancer: No Psychosocial: Yes (TAKES EFFEXOR FOR NIGHTMARES) Depression Integumentary: No Blood Disorders: No Adverse Reaction/Blood Tranf: No (N/A) Physical Exam Vital Signs Vital Signs - First Documented 01/07/20 10:41 Temp 36.2 Pulse 79 Resp 20 B/P (MAP) 150/104 (119) Pulse Ox 97 Capillary Refill : Less Than 3 Seconds Height/Weight/BMI Height: 5'7.00" Weight: 320lbs. 0oz. 145.550018qe; 53.00 BMI Method:Stated General Appearance: WD/WN, no apparent distress HEENT: normal ENT inspection Neck: supple, normal inspection Respiratory: lungs clear, normal breath sounds, no respiratory distress, no accessory muscle use Cardiovascular: normal peripheral pulses, regular rate, rhythm Peripheral Pulses: 2+ Carotid (R), 2+ Carotid (L), 2+ Femoral (R), 2+ Femoral (L), 2+ Dorsalis Pedis (R), 2+ Left Dors-Pedis (L), 2+ Radial Pulses (R), 2+ Radial Pulses (L) Gastrointestinal: soft, tenderness (RLQ) Rectal: normal exam Extremities: normal inspection, no pedal edema, no calf tenderness Neurologic/Psychiatric: no motor/sensory deficits, alert, normal mood/affect, oriented x 3 Skin: normal color, warm/dry Progress/Results/Core Measures Results/Orders Lab Results Laboratory Tests Test 01/07/20 11:10 Range/Units White Blood Count 4.4 4.3-11.0 10^3/uL Red Blood Count 4.15 L 4.35-5.85 10^6/uL Hemoglobin 13.2 11.5-16.0 G/DL Hematocrit 38 35-52 % Mean Corpuscular Volume 92 80-99 FL Mean Corpuscular Hemoglobin 32 25-34 PG Mean Corpuscular Hemoglobin Concent 35 32-36 G/DL Red Cell Distribution Width 12.5 10.0-14.5 % Platelet Count 114 L 130-400 10^3/uL Mean Platelet Volume 10.7 H 7.4-10.4 FL Neutrophils (%) (Auto) 51 42-75 % Lymphocytes (%) (Auto) 37 12-44 % Monocytes (%) (Auto) 11 0-12 % Eosinophils (%) (Auto) 0 0-10 % Basophils (%) (Auto) 0 0-10 % Neutrophils # (Auto) 2.2 1.8-7.8 X 10^3 Lymphocytes # (Auto) 1.6 1.0-4.0 X 10^3 Monocytes # (Auto) 0.5 0.0-1.0 X 10^3 Eosinophils # (Auto) 0.0 0.0-0.3 10^3/uL Basophils # (Auto) 0.0 0.0-0.1 10^3/uL Neutrophils % (Manual) 41 % Lymphocytes % (Manual) 47 % Monocytes % (Manual) 10 % Eosinophils % (Manual) 0 % Basophils % (Manual) 0 % Band Neutrophils 2 % Blood Morphology Comment NORMAL Urine Color YELLOW Urine Clarity CLEAR Urine pH 6.0 5-9 Urine Specific Whitmore 1.025 H 1.016-1.022 Urine Protein 1+ H NEGATIVE Urine Glucose (UA) NEGATIVE NEGATIVE Urine Ketones NEGATIVE NEGATIVE Urine Nitrite NEGATIVE NEGATIVE Urine Bilirubin NEGATIVE NEGATIVE Urine Urobilinogen 0.2 < = 1.0 MG/DL Urine Leukocyte Esterase NEGATIVE NEGATIVE Urine RBC (Auto) 3+ H NEGATIVE Urine RBC 10-25 H /HPF Urine WBC NONE /HPF Urine Squamous Epithelial Cells 5-10 /HPF Urine Crystals NONE /LPF Urine Bacteria MODERATE H /HPF Urine Casts NONE /LPF Urine Mucus NEGATIVE /LPF Urine Culture Indicated NO Sodium Level 138 135-145 MMOL/L Potassium Level 3.8 3.6-5.0 MMOL/L Chloride Level 100 98-107 MMOL/L Carbon Dioxide Level 31 21-32 MMOL/L Anion Gap 7 5-14 MMOL/L Blood Urea Nitrogen 11 7-18 MG/DL Creatinine 0.81 0.60-1.30 MG/DL Estimat Glomerular Filtration Rate > 60 BUN/Creatinine Ratio 14 Glucose Level 172 H 70-105 MG/DL Calcium Level 9.4 8.5-10.1 MG/DL Corrected Calcium 9.5 8.5-10.1 MG/DL Total Bilirubin 0.3 0.1-1.0 MG/DL Aspartate Amino Transf (AST/SGOT) 39 H 5-34 U/L Alanine Aminotransferase (ALT/SGPT) 61 H 0-55 U/L Alkaline Phosphatase 101 40-136 U/L Total Protein 6.2 L 6.4-8.2 GM/DL Albumin 3.9 3.2-4.5 GM/DL Lipase 33 8-78 U/L My Orders Orders - JANIS COLE MD Cbc And Manual Diff (01/07/20 10:57) Comprehensive Metabolic Panel (01/07/20 10:57) Lipase (01/07/20 10:57) Urinalysis (01/07/20 10:57) Ns Iv 1000 Ml (Sodium Chloride 0.9%) (01/07/20 11:00) Fentanyl Injection (Sublimaze Injection (01/07/20 11:00) Ct Abdomen/Pelvis W (01/07/20 10:57) Iohexol Injection (Omnipaque 350 Mg/Ml 1 (01/07/20 11:15) Received Contrast (Hold Metformin- Contr (01/07/20 11:15) Sodium Chloride Flush (Catheter Flush Sy (01/07/20 11:15) Ns (Ivpb) (Sodium Chloride 0.9% Ivpb Bag (01/07/20 11:15) Fentanyl Injection (Sublimaze Injection (01/07/20 12:45) Medications Given in ED Current Medications Medications Dose Ordered Sig/Ashley Route Start Time Stop Time Status Last Admin Dose Admin Fentanyl Citrate 50 mcg ONCE ONCE IVP 01/07/20 11:00 01/07/20 11:01 DC 01/07/20 11:08 50 MCG Iohexol 100 ml ONCE ONCE IV 01/07/20 11:15 01/07/20 11:16 DC 01/07/20 12:03 100 ML Sodium Chloride 10 ml NEEDED PRN IV 01/07/20 11:15 01/07/20 12:03 10 ML Sodium Chloride 100 ml ONCE ONCE IV 01/07/20 11:15 01/07/20 11:16 DC 01/07/20 12:03 100 ML Vital Signs/I&O 01/07/20 10:41 Temp 36.2 Pulse 79 Resp 20 B/P (MAP) 150/104 (119) Pulse Ox 97 Blood Pressure Mean: 119 Progress Progress Note : Time: 12:[address] with seroma slightly smaller than last CT. She is not tender on exam where the seroma is located. She does have a UTI and has had some urinary frequency this morning. Will discharge home with Macrobid for UTI. Departure Impression Primary Impression: Abdominal pain Qualified Codes: R10.31 - Right lower quadrant pain Additional Impression: Urinary tract infection Qualified Codes: N30.00 - Acute cystitis without hematuria Disposition: HOME, SELF-CARE Condition: Stable Departure-Patient Inst. Decision time for Depature: 12:45 Referrals: [facility]/ANDREW (PCP) Primary Care Physician KITTY JAMA APRN (Family) Primary Care Physician Patient Instructions: Urinary Tract Infection, Adult (DC) Scripts Nitrofurantoin Macrocrystal (Nitrofurantoin) 100 Mg Capsule 100 MG PO BID for 7 Days, #14 CAP 0 Refills Prov: JANIS COLE MD 01/07/20 JANIS COLE MD Jan 07, 2020 11:04
[2020-01-07] MEDS ORDERED: NS 100 ML (IVPB) BAG IV ONE (11:15)
[2020-01-07] MEDS ORDERED: CATHETER FLUSH 10 ML SYR IV PRN (11:15)
[2020-01-07] MEDS ORDERED: IOHEXOL 350 MG/ML 100 ML (OMNIPAQUE 350) VIAL IV ONE (11:15)
[2020-01-07] MEDS ORDERED: HOLD METFORMIN - RECEIVED CONTRAST 20 ML VIAL IV SCH (11:15)
[2020-01-07 11:22] LABS: BASOPHILS % (AUTO) 0 % (0-10); EOSINOPHILS % (AUTO) 0 % (0-10); HEMATOCRIT 38 % (35-52); HEMOGLOBIN 13.2 G/DL (11.5-16.0); LYMPHOCYTES # (AUTO) 1.6 X 10^3 (1.0-4.0); LYMPHOCYTES % (AUTO) 37 % (12-44); MEAN CORPUSCULAR HEMOGLOBIN 32 PG (25-34); MEAN CORPUSCULAR HGB CONC 35 G/DL (32-36); MEAN CORPUSCULAR VOLUME 92 FL (80-99); MEAN PLATELET VOLUME 10.7 FL (7.4-10.4); MONOCYTES # (AUTO) 0.5 X 10^3 (0.0-1.0); MONOCYTES % (AUTO) 11 % (0-12); NEUTROPHILS # (AUTO) 2.2 X 10^3 (1.8-7.8); NEUTROPHILS % (AUTO) 51 % (42-75); PLATELET COUNT 114 10^3/uL (130-400); RED CELL DISTRIBUTION WIDTH 12.5 % (10.0-14.5); WHITE BLOOD COUNT 4.4 10^3/uL (4.3-11.0)
[2020-01-07 11:25] LABS: BILIRUBIN,URINE NEGATIVE (NEGATIVE); CLARITY,URINE CLEAR; COLOR,URINE YELLOW; GLUCOSE, URINE (UA) NEGATIVE (NEGATIVE); KETONES,URINE NEGATIVE (NEGATIVE); LEUKOCYTE ESTERASE ,URINE NEGATIVE (NEGATIVE); NITRITE,URINE NEGATIVE (NEGATIVE); PROTEIN,URINE 1+ (NEGATIVE)
[2020-01-07 11:26] LABS: BACTERIA,URINE MODERATE /HPF
[2020-01-07 11:42] LABS: ALANINE AMINOTRANSFERASE 61 U/L (0-55); ALBUMIN 3.9 GM/DL (3.2-4.5); ALKALINE PHOSPHATASE 101 U/L (40-136); BILIRUBIN,TOTAL 0.3 MG/DL (0.1-1.0); BUN/CREATININE RATIO 14; CALCIUM 9.4 MG/DL (8.5-10.1); CARBON DIOXIDE 31 MMOL/L (21-32); CHLORIDE 100 MMOL/L (98-107); CREATININE SERUM 0.81 MG/DL (0.60-1.30); GFR ESTIMATED > 60; GLUCOSE 172 MG/DL (70-105); LIPASE 33 U/L (8-78); POTASSIUM 3.8 MMOL/L (3.6-5.0); SODIUM 138 MMOL/L (135-145); TOTAL PROTEIN 6.2 GM/DL (6.4-8.2)
[2020-01-07 12:04] LABS: BAND NEUTROPHILS 2 %; BASOPHILS % (MANUAL) 0 %; EOSINOPHILS % (MANUAL) 0 %; LYMPHOCYTES % (MANUAL) 47 %; MONOCYTES % (MANUAL) 10 %; NEUTROPHILS % (MANUAL) 41 %; RBC MORPH NORMAL
--- NOTE | 2020-01-07 12:22 | Diagnostic Imaging Report ---
PROCEDURE: CT abdomen and pelvis with contrast. TECHNIQUE: Multiple contiguous axial images were obtained through the abdomen and pelvis after administration of intravenous contrast. Auto Exposure Controls were utilized during the CT exam to meet ALARA standards for radiation dose reduction. Indication: Right lower quadrant pain for 2 days. Comparison: 04/18/2019. Discussion: Atelectasis noted within the lung bases. Normal heart size. No pleural or pericardial fluid. Fatty hepatomegaly is again noted. The gallbladder surgically absent. The pancreas, stomach, spleen, and adrenal glands are unremarkable. No renal stone, mass, or hydronephrosis. The aorta is normal in caliber. The appendix appears to be surgically absent. No diverticulosis. Uterus is surgically absent. Urinary bladder is decompressed. No obstruction, pneumatosis, pneumoperitoneum. No ascites or pathologically enlarged lymph nodes identified. Thick-walled fluid collection along the lower midline anterior abdomen is decreased in size now measuring 3 x 2 cm. No gas identified centrally. No other body wall abnormality. No acute osseous abnormality. Impression: 1. Small body wall fluid collection within the anterior lower midline is decreased in size from the prior exam. 2. Fatty hepatomegaly is stable. Dictated by: Dictated on workstation # [id number]
[2020-01-07] MEDS ORDERED: NITR100C PO (12:45)
[2020-01-07 13:01] VITALS: BP 140/90
== END 2020-01-07 13:03 | disposition home or self-care (01) ==
LOC: EDUNIT# 10:36 → ER FS 10:38
DX: N39.0 Urinary tract infection, site not specified (principal); J45.909 Unspecified asthma, uncomplicated; E03.9 Hypothyroidism, unspecified; F32.9 Major depressive disorder, single episode, unspecified; G43.909 Migraine, unspecified, not intractable, without status migrainosus; G89.29 Other chronic pain; M54.9 Dorsalgia, unspecified; Z79.891 Long term (current) use of opiate analgesic; Z79.52 Long term (current) use of systemic steroids; Z88.1 Allergy status to other antibiotic agents; Z79.890 Hormone replacement therapy; Z88.2 Allergy status to sulfonamides; Z88.8 Allergy status to other drugs, medicaments and biological substances; Z87.891 Personal history of nicotine dependence
CPT/HCPCS: 36415; 74177; 80053; 81000; 83690; 85007; 85027

== ENCOUNTER 2020-02-15 03:22 | Emergency (ER) | payer MEDICAID ==
[~2020-02-15 03:22] MED LIST changes: +NITR100C PO
== END 2020-02-15 04:06 | disposition home or self-care (01) ==
LOC: EDUNIT# 03:22 → ER FS 03:23
DX: G89.29 Other chronic pain (principal); M25.551 Pain in right hip; M25.561 Pain in right knee
CPT/HCPCS: 99281

== ENCOUNTER 2020-05-17 00:33 | Emergency (ER) | payer MEDICAID ==
[~2020-05-17] VITALS: Ht 172.7 cm; Wt 164.4 kg
[2020-05-17 00:38] VITALS: BP 180/54
--- NOTE | 2020-05-17 00:46 | ED Integumentary General ---
General Chief Complaint: Lower Extremity Stated Complaint: RASH ON LEG Source: patient Exam Limitations: no limitations History of Present Illness Date Seen by Provider: May 17, 2020 Time Seen by Provider: 00:46 Initial Comments 49-year-old female presents with bilateral lower extremity edema. Patient has a history of peripheral edema but is worsened. She also has some erythema now that her bilateral lower legs. She presents with some linear type vesicles on the lower part of the left leg. For her peripheral edema she is been taking 40 mg Lasix daily. Patient reports she's been recently tested for COVID and is negative. Allergies and Home Medications Allergies Coded Allergies: tetracycline (Verified Allergy, Severe, N/V, 06/08/19) Sulfa (Sulfonamide Antibiotics) (Verified Allergy, Mild, N/V, 06/08/19) hydroxyzine (Verified Allergy, Mild, "JITTERS", 06/08/19) melatonin (Verified Allergy, Mild, NIGHTMARES, 06/08/19) prochlorperazine (Verified Allergy, Mild, "JITTERS", 06/08/19) Home Medications Albuterol Sulfate 1 Puff Puff, 2 PUFF IH Q4H PRN for SHORTNESS OF BREATH, (Reported) 1 PUFF = 90 MCG Cyclobenzaprine HCl 10 Mg Tablet, 10 MG PO BID PRN for PRN, (Reported) Cyclobenzaprine HCl 10 Mg Tablet, 10 MG PO BID PRN for SPASMS Prescribed by: JUAN KUMAR on 08/07/19 1347 Diclofenac Sodium 100 Gm Gel..gram., 100 GM TP Q6H PRN for PAIN-SEVERE (8-10) Prescribed by: SUMMER RICH on 10/21/19 1159 Furosemide 40 Mg Tablet, 40 MG PO DAILY, (Reported) Gabapentin 300 Mg Capsule, 300 MG PO TID, (Reported) Hydrocodone Bit/Acetaminophen 1 Each Tablet, 1 TAB PO Q4H Prescribed by: CARMENCITA FAYE on 06/14/19 1434 Ibuprofen 800 Mg Tablet, 800 MG PO Q8H PRN for PAIN-MILD Prescribed by: ABRIL RODRIGUEZ on 08/23/19 1755 Levothyroxine Sodium 50 Mcg Tablet, 50 MCG PO DAILY, (Reported) Methocarbamol 500 Mg Tablet, 500 MG PO BID PRN for PAIN-MODERATE (5-7), (Reported) Methylprednisolone 4 Mg Tab.ds.pk, 4 MG PO UD PER DOSE PACK INSTRUCTIONS Prescribed by: SUMMER RICH on 10/21/19 1159 Nitrofurantoin Macrocrystal 100 Mg Capsule, 100 MG PO BID Prescribed by: JANIS COLE on 01/07/20 1245 Ondansetron 4 Mg Tab.rapdis, 4 MG PO Q6H PRN for NAUSEA/VOMITING Prescribed by: JUAN KUMAR on 08/07/19 1347 Ondansetron HCl 4 Mg Tab, 4 MG PO PRN PRN for NAUSEA/VOMITING, (Reported) Trazodone HCl 150 Mg Tablet, 150 MG PO HS, (Reported) Venlafaxine HCl 75 Mg Tab, 75 MG PO BID, (Reported) Patient Home Medication List Home Medication List Reviewed: Yes Review of Systems Review of Systems Constitutional: No chills, No fever Respiratory: No cough, No short of breath Cardiovascular: see HPI; No chest pain; edema Gastrointestinal: no symptoms reported Genitourinary: no symptoms reported Musculoskeletal: no symptoms reported Skin: see HPI Psychiatric/Neurological: No Symptoms Reported Endocrine: No Symptoms Reported Past Jpljmge-Ssvnjx-Nbkmwx Hx Past Med/Social Hx: Reviewed Nursing Past Med/Soc Hx Patient Social History Type Used: Cigarettes Former Smoker, Quit: Jun 15, 1996 2nd Hand Smoke Exposure: No Recent Foreign Travel: No Contact w/Someone Who Travel: No Recent Hopitalizations: No Immunizations Up To Date Tetanus Booster (TDap): Less than 5yrs PED Vaccines UTD: Yes Date of Pneumonia Vaccine: Apr 18, 2013 Date of Influenza Vaccine: Apr 03, 2019 Seasonal Allergies Seasonal Allergies: No Past Medical History Surgeries: Yes (HERNIA X3) Abdominal, Appendectomy, Gallbladder, Hysterectomy, Tonsillectomy Respiratory: Yes Asthma, Sleep Apnea Currently Using CPAP: No Currently Using BIPAP: No Cardiac: No Chronic Edema/Swelling Neurological: 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 Headaches /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 Sexually Transmitted Disease: No HIV/AIDS: No Genitourinary: No Gastrointestinal: Yes Abdominal Hernia, Chronic Constipation, Chronic Diarrhea Musculoskeletal: Yes (scoliosis, knee pain back pain) Chronic Back Pain Endocrine: Yes (MERLIN'S) Hypothyroidsim HEENT: Yes Loss of Vision: Denies Hearing Impairment: Denies Cancer: No Psychosocial: Yes (TAKES EFFEXOR FOR NIGHTMARES) Depression Integumentary: No Blood Disorders: No Adverse Reaction/Blood Tranf: No (N/A) Physical Exam Vital Signs Vital Signs - First Documented 05/17/20 00:38 Temp 36.5 Pulse 81 Resp 20 B/P (MAP) 180/54 (96) Pulse Ox 94 O2 Delivery Room Air Capillary Refill : General Appearance: no apparent distress, obese Neck: supple Cardiovascular: normal peripheral pulses, regular rate, rhythm Respiratory: no respiratory distress, no accessory muscle use Extremities: swelling (3+ bilateral lower extremities) Neurologic/Psychiatric: alert, normal mood/affect, oriented x 3 Skin: other (bilateral chronic venous stasis changes on her lower extremities with left greater than right. She also has some vesicular linear swelling that seem more consistent with a possible contact dermatitis.) Progress/Results/Core Measures Results/Orders Vital Signs/I&O 05/17/20 00:38 Temp 36.5 Pulse 81 Resp 20 B/P (MAP) 180/54 (96) Pulse Ox 94 O2 Delivery Room Air Progress Progress Note : Time: 00:55 Progress Note Patient with bilateral lower extremity edema consistent with venous stasis changes with what appears to be an overlying contact dermatitis on the left lower anterior leg. I discussed with patient the need that double her Lasix from 40 mg 80 mg a day. That she should follow-up with her primary care provider for recheck on Wednesday, May 20. I also recommended she use hydrocortisone cream to the anterior aspect of the left lower leg over the vesicles. She should return the ER if symptoms continue to worsen. Departure Impression Primary Impression: Peripheral edema Additional Impressions: Venous stasis dermatitis of both lower extremities Contact dermatitis Qualified Codes: L25.9 - Unspecified contact dermatitis, unspecified cause Disposition: HOME, SELF-CARE Condition: Stable Departure-Patient Inst. Referrals: [facility] (PCP) Primary Care Physician KITTY JAMA APRN (Family) Primary Care Physician Patient Instructions: Contact Dermatitis (DC), Dependent Edema (DC), Dermatitis Add. Discharge Instructions: Please increase your Lasix from 40 mg daily to 80 mg daily Follow-up with your primary care provider on May 20 for recheck in today symptoms Please use [id number] hydrocortisone to the anterior aspect of her your lower leg All discharge instructions reviewed with patient and/or family. Voiced understanding. JUAN KUMAR DO May 17, 2020 00:46
== END 2020-05-17 01:02 | disposition home or self-care (01) ==
LOC: EDUNIT# 00:33 → ER FS 00:35
DX: R60.0 Localized edema (principal); I87.2 Venous insufficiency (chronic) (peripheral); L25.8 Unspecified contact dermatitis due to other agents; E66.9 Obesity, unspecified; J45.909 Unspecified asthma, uncomplicated; F32.9 Major depressive disorder, single episode, unspecified; E03.9 Hypothyroidism, unspecified; G89.29 Other chronic pain; M54.9 Dorsalgia, unspecified; Z87.891 Personal history of nicotine dependence; Z88.1 Allergy status to other antibiotic agents; Z88.2 Allergy status to sulfonamides; Z88.8 Allergy status to other drugs, medicaments and biological substances; Z79.890 Hormone replacement therapy; Z79.891 Long term (current) use of opiate analgesic
CPT/HCPCS: 99283

== ENCOUNTER 2020-08-01 20:12 | Emergency (ER) | payer MEDICAID ==
[~2020-08-01] VITALS: Ht 170.1 cm; Wt 147.4 kg
--- NOTE | 2020-08-01 20:40 | ED General ---
General Chief Complaint: Back Problems Stated Complaint: CHEST PAIN/TIGHTNESS Source of Information: Patient, Old Records History of Present Illness Date Seen by Provider: Aug 01, 2020 Time Seen by Provider: 20:13 Initial Comments 49-year-old female presenting with 2-3 days of abdominal pain that is radiating to her right shoulder and back area. She states that she has been having nausea and loose stools as well. She is also concerned about having pain and some redness in her left lower leg that started today. This is a chronic recurrent issue in terms of the leg. She states that the abdominal pain going into her right shoulder feels similar to when she has had "gas trapped in her stomach area" and she has gotten medicine from the clinic that started with an M that has helped. She states that she called the clinic today to get more about medicine but has not heard back. She has had "hot flashes" and subjective fever. She took Tylenol prior to coming to the emergency department. She has been taking Zofran for nausea. She denies any pain with urination or frequency of urination. She previously has had her gallbladder, appendix, uterus removed. She does have a history of multiple emergency department visits in the past for multiple pain complaints requiring narcotic pain medications to control her symptoms. Allergies and Home Medications Allergies Coded Allergies: tetracycline (Verified Allergy, Severe, N/V, 06/08/19) Sulfa (Sulfonamide Antibiotics) (Verified Allergy, Mild, N/V, 06/08/19) hydroxyzine (Verified Allergy, Mild, "JITTERS", 06/08/19) melatonin (Verified Allergy, Mild, NIGHTMARES, 06/08/19) prochlorperazine (Verified Allergy, Mild, "JITTERS", 06/08/19) Home Medications Albuterol Sulfate 1 Puff Puff, 2 PUFF IH Q4H PRN for SHORTNESS OF BREATH, (Reported) 1 PUFF = 90 MCG Ciprofloxacin HCl 500 Mg Tablet, 500 MG PO BID Prescribed by: LYLA LANGE on 08/01/20 2205 Cyclobenzaprine HCl 10 Mg Tablet, 10 MG PO BID PRN for PRN, (Reported) Cyclobenzaprine HCl 10 Mg Tablet, 10 MG PO BID PRN for SPASMS Prescribed by: JUAN KUMAR on 08/07/19 1347 Diclofenac Sodium 100 Gm Gel..gram., 100 GM TP Q6H PRN for PAIN-SEVERE (8-10) Prescribed by: SUMMER RICH on 10/21/19 1159 Furosemide 40 Mg Tablet, 40 MG PO DAILY, (Reported) Gabapentin 300 Mg Capsule, 300 MG PO TID, (Reported) Hydrocodone Bit/Acetaminophen 1 Each Tablet, 1 TAB PO Q4H Prescribed by: CARMENCITA FAYE on 06/14/19 1434 Hydrocodone/Acetaminophen 1 Each Tablet, 1 TAB PO Q6H PRN for PAIN-SEVERE (8-10) Prescribed by: LYLA LANGE on 08/01/20 220 Ibuprofen 800 Mg Tablet, 800 MG PO Q8H PRN for PAIN-MILD Prescribed by: ABRIL RODRIGUEZ on 08/23/19 1755 Levothyroxine Sodium 50 Mcg Tablet, 50 MCG PO DAILY, (Reported) Methocarbamol 500 Mg Tablet, 500 MG PO BID PRN for PAIN-MODERATE (5-7), (Reported) Methylprednisolone 4 Mg Tab.ds.pk, 4 MG PO UD PER DOSE PACK INSTRUCTIONS Prescribed by: SUMMER RICH on 10/21/19 1159 Metronidazole 500 Mg Tablet, 500 MG PO BID Prescribed by: LYLA LANGE on 08/01/20 220 Nitrofurantoin Macrocrystal 100 Mg Capsule, 100 MG PO BID Prescribed by: JANIS COLE on 01/07/20 1245 Ondansetron 4 Mg Tab.rapdis, 4 MG PO Q6H PRN for NAUSEA/VOMITING Prescribed by: JUAN KUMAR on 08/07/19 1347 Ondansetron 4 Mg Tab.rapdis, 4 MG PO Q6H PRN for NAUSEA/VOMITING Prescribed by: LYLA LANGE on 08/01/20 220 Ondansetron HCl 4 Mg Tab, 4 MG PO PRN PRN for NAUSEA/VOMITING, (Reported) Trazodone HCl 150 Mg Tablet, 150 MG PO HS, (Reported) Venlafaxine HCl 75 Mg Tab, 75 MG PO BID, (Reported) Patient Home Medication List Home Medication List Reviewed: Yes Review of Systems Review of Systems Constitutional: No chills; fever (subjective with "hot flashes"), malaise EENTM: no symptoms reported Respiratory: No cough, No short of breath, No stridor, No wheezing Cardiovascular: chest pain (right posterior shoulder pain and chest tightness for 2-3 days), edema; No palpitations, No syncope Gastrointestinal: see HPI Genitourinary: see HPI Musculoskeletal: back pain (right posterior shoulder pain similar to when she has had "gas pains" radiating to her shoulder and back) Skin: change in color (redness and abrasions to left lower leg that is chronic and recurrent for patient) Psychiatric/Neurological: Anxiety Past Xtowvid-[id number]-Frbfbm Hx Past Med/Social Hx: Reviewed Nursing Past Med/Soc Hx Patient Social History Type Used: Cigarettes Former Smoker, Quit: Jun 15, 1996 2nd Hand Smoke Exposure: No Recent Hopitalizations: No Immunizations Up To Date Tetanus Booster (TDap): Less than 5yrs PED Vaccines UTD: Yes Date of Pneumonia Vaccine: Apr 18, 2013 Date of Influenza Vaccine: Apr 03, 2019 Seasonal Allergies Seasonal Allergies: No Past Medical History Surgeries: Yes (HERNIA X3) Abdominal, Appendectomy, Gallbladder, Hysterectomy, Tonsillectomy Respiratory: Yes Asthma, Sleep Apnea Currently Using CPAP: No Currently Using BIPAP: No Cardiac: No Chronic Edema/Swelling Neurological: Yes Headaches /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 Sexually Transmitted Disease: No HIV/AIDS: No Genitourinary: No Gastrointestinal: Yes Abdominal Hernia, Chronic Constipation, Chronic Diarrhea Musculoskeletal: Yes (scoliosis, knee pain back pain) Chronic Back Pain Endocrine: Yes (MERLIN'S) Hypothyroidsim HEENT: Yes Loss of Vision: Denies Hearing Impairment: Denies Cancer: No Psychosocial: Yes (TAKES [employer]OR FOR NIGHTMARES) Depression Integumentary: No Blood Disorders: No Adverse Reaction/Blood Tranf: No (N/A) Physical Exam Vital Signs Vital Signs - First Documented 08/01/20 20:16 Temp 36.4 Pulse 81 Resp 22 B/P (MAP) 150/83 (105) Pulse Ox 96 O2 Delivery Room Air Capillary Refill : Height, Weight, BMI Height: 5'7.00" Weight: 320lbs. 0oz. [id number]; 55.00 BMI Method:Stated General Appearance: Moderate Distress (intermittent moaning and grunting, especially when staff is in the room), Obese Neck: Full Range of Motion, Non Tender, Supple Respiratory: Chest Non Tender, Lungs Clear, Normal Breath Sounds, No Accessory Muscle Use, No Respiratory Distress Cardiovascular: Regular Rate, Rhythm, Normal Peripheral Pulses Gastrointestinal: Normal Bowel Sounds, No Pulsatile Mass, Soft; No Guarding, No Rebound; Tenderness (RUQ, epigastric and LUQ) Rectal: Deferred Extremity: Normal Capillary Refill, No Calf Tenderness, Pedal Edema (1+ BLE) Neurologic/Psychiatric: Alert, Oriented x3 Skin: Warm/Dry, Erythema (mild erythema to left ankle/mancera area with superficial abrasions. no increased warmth, fluctuance or localized swelling beyond the 1+ BLE edema) Progress/Results/Core Measures Suspected Sepsis SIRS Temperature: Pulse: Respiratory Rate: Laboratory Tests 08/01/20 20:21: White Blood Count 8.2 Blood Pressure / Mean: Laboratory Tests 08/01/20 20:21: Creatinine 1.03, Platelet Count 137, Total Bilirubin 0.4 Results/Orders Lab Results Laboratory Tests Test 08/01/20 20:21 08/01/20 20:34 Range/Units White Blood Count 8.2 4.3-11.0 10^3/uL Red Blood Count 4.32 L 4.35-5.85 10^6/uL Hemoglobin 13.6 11.5-16.0 G/DL Hematocrit 39 35-52 % Mean Corpuscular Volume 91 80-99 FL Mean Corpuscular Hemoglobin 31 25-34 PG Mean Corpuscular Hemoglobin Concent 35 32-36 G/DL Red Cell Distribution Width 12.8 10.0-14.5 % Platelet Count 137 130-400 10^3/uL Mean Platelet Volume 10.8 H 7.4-10.4 FL Immature Granulocyte % (Auto) 0 % Neutrophils (%) (Auto) 53 42-75 % Lymphocytes (%) (Auto) 34 12-44 % Monocytes (%) (Auto) 12 0-12 % Eosinophils (%) (Auto) 1 0-10 % Basophils (%) (Auto) 0 0-10 % Neutrophils # (Auto) 4.4 1.8-7.8 X 10^3 Lymphocytes # (Auto) 2.8 1.0-4.0 X 10^3 Monocytes # (Auto) 0.9 0.0-1.0 X 10^3 Eosinophils # (Auto) 0.1 0.0-0.3 10^3/uL Basophils # (Auto) 0.0 0.0-0.1 10^3/uL Immature Granulocyte # (Auto) 0.0 0.0-0.1 10^3/uL Sodium Level 140 135-145 MMOL/L Potassium Level 3.8 3.6-5.0 MMOL/L Chloride Level 102 98-107 MMOL/L Carbon Dioxide Level 29 21-32 MMOL/L Anion Gap 9 5-14 MMOL/L Blood Urea Nitrogen 14 7-18 MG/DL Creatinine 1.03 0.60-1.30 MG/DL Estimat Glomerular Filtration Rate 57 BUN/Creatinine Ratio 14 Glucose Level 162 H 70-105 MG/DL Calcium Level 9.0 8.5-10.1 MG/DL Corrected Calcium 9.1 8.5-10.1 MG/DL Total Bilirubin 0.4 0.1-1.0 MG/DL Aspartate Amino Transf (AST/SGOT) 21 5-34 U/L Alanine Aminotransferase (ALT/SGPT) 41 0-55 U/L Alkaline Phosphatase 120 40-136 U/L Troponin I < 0.30 <0.30 NG/ML Total Protein 6.8 6.4-8.2 GM/DL Albumin 3.9 3.2-4.5 GM/DL Lipase 30 8-78 U/L Urine Color YELLOW Urine Clarity CLOUDY Urine pH 6.0 5-9 Urine Specific [place] >=1.030 1.016-1.022 Urine Protein 3+ H NEGATIVE Urine Glucose (UA) NEGATIVE NEGATIVE Urine Ketones NEGATIVE NEGATIVE Urine Nitrite NEGATIVE NEGATIVE Urine Bilirubin NEGATIVE NEGATIVE Urine Urobilinogen 1.0 < = 1.0 MG/DL Urine Leukocyte Esterase NEGATIVE NEGATIVE Urine RBC (Auto) 3+ H NEGATIVE Urine RBC 50-100 H /HPF Urine WBC 2-5 /HPF Urine Squamous Epithelial Cells 25-50 H /HPF Urine Crystals NONE /LPF Urine Bacteria MODERATE H /HPF Urine Casts NONE /LPF Urine Mucus SMALL H /LPF Urine Culture Indicated YES My Orders Orders - LYLA LANGE MD Ekg Tracing (08/01/20 20:14) Comprehensive Metabolic Panel (08/01/20 20:29) Lipase (08/01/20 20:29) Ua Culture If Indicated (08/01/20 20:29) Ed Iv/Invasive Line Start (08/01/20 20:29) Cbc With Automated Diff (08/01/20 20:29) Ct Abdomen/Pelvis Wo (08/01/20 20:29) Troponin I Fs (08/01/20 20:32) Ns Iv 1000 Ml (Sodium Chloride 0.9%) (08/01/20 20:45) Metoclopramide Injection (Reglan Injecti (08/01/20 20:45) Orphenadrine Inj (Ed Only) (Norflex Inje (08/01/20 20:45) Pantoprazole Injection (Protonix Injecti (08/01/20 20:45) Urine Culture (08/01/20 20:34) Fentanyl Injection (Sublimaze Injection (08/01/20 22:00) Metronidazole Tablet (Flagyl Tablet) (08/01/20 22:00) Ciprofloxacin Tablet (Cipro Tablet) (08/01/20 21:57) Rx-Hydrocodone/Apap 5-325 Mg (Rx-Vicodin (08/01/20 22:00) Medications Given in ED Current Medications Medications Dose Ordered Sig/Ashley Route Start Time Stop Time Status Last Admin Dose Admin Fentanyl Citrate 100 mcg ONCE ONCE IVP 08/01/20 22:00 08/01/20 22:01 DC 08/01/20 22:12 100 MCG Metoclopramide HCl 10 mg ONCE ONCE IVP 08/01/20 20:45 08/01/20 20:46 DC 08/01/20 21:09 10 MG Metronidazole 500 mg ONCE ONCE PO 08/01/20 22:00 08/01/20 22:01 DC 08/01/20 22:10 500 MG Orphenadrine Citrate 60 mg ONCE ONCE IVP 08/01/20 20:45 08/01/20 20:46 DC 08/01/20 21:12 60 MG Pantoprazole 40 mg ONCE ONCE IV 08/01/20 20:45 08/01/20 20:46 DC 08/01/20 21:06 40 MG Vital Signs/I&O 08/01/20 08/01/20 20:16 22:29 Temp 36.4 37.1 37.1 Pulse 81 73 73 Resp 22 20 20 B/P (MAP) 150/83 (105) 150/83 150/83 Pulse Ox 96 98 98 O2 Delivery Room Air Room Air Room Air Capillary Refill : Progress Note #1: Progress Note obtain electrocardiogram to evaluate her complaint of chest tightness and pain going into her right shoulder. This did not demonstrate any acute ST elevation. Her vital signs appeared stable. Obtain IV access and check basic labs as well as cardiac enzymes since her symptoms have been going on for 2 to 3 days a single set of troponin enzymes trended show if she was having a cardiac event. Placed on telemetry monitoring to evaluate her rhythm and rate while in the emergency department since she was complaining of chest tightness and pain going from the upper abdomen into her right shoulder. With her abdominal pain and history of multiple abdominal surgeries as well as nausea and loose stools ordered a CT scan of the abdomen and pelvis without contrast to look for colitis, diverticulitis, bowel obstruction, hiatal hernia, gastritis, free air with bowel perforation, hernia that has worsened and caused obstruction, enteritis, intra-abdominal mass. We will give IV fluids for hydration, Protonix for possible gastritis, from reviewing her past medication history on the external medication history the only medication that started with an M and was related to gastric treatments was metoclopramide so a dose of this was ordered. In addition for her pain give a dose of Norflex for possible spasms. Trying to avoid narcotic medications as she has a history of coming and requesting narcotics in the past for multiple different complaints. Currently off of her vitals, exam and complaint, she does not have an indication for narcotic pain medicine. Will see how she responds to the Protonix, Metoclopramide and Norflex as medications for pain control initially while waiting on initial labs and CT scan. Progress Note #2: Progress Note CBC and chemistry did not show any acute significant abnormality. Her cardiac enzymes are normal. The urinalysis showed some blood and elevated specific gravity and she had increased epithelial cells with bacteria so a culture will be run. However, she had no LE or Nit or WBC to indicate a definite infection. Her CT scan showed signs of sigmoid diverticulitis without abscess. This could be causing some of her symptoms and complaint. When reviewing results with the patient she denied improvement in her symptoms. She stated that she was still very uncomfortable. She repeatedly asked about narcotic pain medication. She specifically asked about what pain medicine she would be getting. I advised her for the infection we would do Cipro and Flagyl and she stated that she has taken those before and that she can tolerate them. Will give a dose of fentanyl here and prescribe some hydrocodone for pain at home. Counseled that if the medications were not helping or her symptoms worsened with fever over 101 Fahrenheit or uncontrolled nausea vomiting with worsening pain that she would need to go to [facility] for possible admission with IV antibiotics. Once her symptoms had improved she would likely need to get a colonoscopy to evaluate the diverticulitis and diverticulosis. ECG Initial ECG Impression Date: Aug 01, 2020 Initial ECG Impression Time: 20:17 Initial ECG Rate: 79 Initial ECG Rhythm: Normal Sinus Initial ECG Comparisson: Unchanged Comment Normal sinus rhythm with a heart rate of 79 bpm. NJ interval [address] elevation. Prolonged QT interval with 487 ms and a QTc interval of 559 ms. Overall the EKG appears similar to prior tracings in the system. Diagnostic Imaging Diagonstic Imaging: CT Plain Films/CT/US/NM/MRI: abdomen, pelvis Comments [facility] [place] NAME: ZELDA TORO [facility] REC#: [id number] PT STATUS: REG ER : 1970 PHYSICIAN: LYLA LANGE MD ADMIT DATE: 08/01/20/ER FS Signed Date of Exam:08/01/20 CT ABDOMEN/PELVIS WO PROCEDURE: CT abdomen and pelvis without contrast. TECHNIQUE: Multiple contiguous axial images were obtained through the abdomen and pelvis without the use of intravenous contrast. Auto Exposure Controls were utilized during the CT exam to meet ALARA standards for radiation dose reduction. INDICATION: Right upper quadrant and epigastric pain. COMPARISON: 01/07/2020. FINDINGS: The heart is unremarkable. The included lung bases are clear. There is hepatic steatosis. The gallbladder is surgically absent. The spleen, pancreas, adrenal glands and kidneys have a normal noncontrast CT appearance. There is no pathologically enlarged mesenteric or retroperitoneal adenopathy. The bowel loops are nondilated. Scattered diverticuli are present with a small amount of pericolonic inflammatory changes in the sigmoid colon. There is no free fluid or free air. No acute osseous abnormality is visualized. Hernia repair changes are seen in the ventral abdomen. A small fluid collection is seen in the midline of the lower abdomen measuring 3.1 x 1.7 cm, similar to prior exams and likely representing seroma or hematoma. Ureters and bladder are grossly normal. There is no free air, loculated collection or adenopathy in the pelvis. IMPRESSION: 1. Scattered diverticuli with pericolonic inflammatory changes in the sigmoid colon likely representing acute uncomplicated diverticulitis. No evidence of free fluid or free air. No abscess. 2. Hepatic steatosis. Dictated by: Dictated on workstation # [id number] Dict: 08/01/202129 Trans: 08/01/202138 [facility] [id number] Interpreted by: BOYD FERRARI DO Electronically signed by: BOYD FERRARI DO 08/01/202138 Departure Impression Primary Impression: Diverticulitis large intestine Qualified Codes: K57.32 - Diverticulitis of large intestine without perforation or abscess without bleeding Additional Impression: Nausea Disposition: HOME, SELF-CARE Condition: Stable Departure-Patient Inst. Decision time for Depature: 22:01 Referrals: [facility] (PCP) Primary Care Physician KITTY JAMA APRN (Family) Primary Care Physician Patient Instructions: Nausea and Vomiting, Adult ED, Diverticulitis (DC) Add. Discharge Instructions: Take the antibiotics for the diverticulitis. Continue nausea medicine as needed to help keep your stomach settled so you can stay hydrated Follow up with clinic if not improving, if worsening you may need to go to [facility] for IV antibiotics to help control your symptoms Once everything is calmed down and cleared up your regular provider will likely want to have you get a colonoscopy All discharge instructions reviewed with patient and/or family. Voiced understanding. Scripts Hydrocodone/Acetaminophen (Hydrocodone-Acetamin 5-325 mg) 1 Each Tablet 1 TAB PO Q6H PRN for PAIN-SEVERE (8-10) for 4 Days, #16 TAB 0 Refills Prov: LYLA LANGE MD 08/01/20 Ondansetron (Ondansetron Odt) 4 Mg Tab.rapdis 4 MG PO Q6H PRN for NAUSEA/VOMITING for 5 Days, #20 TAB 0 Refills Prov: LYLA LANGE MD 08/01/20 Metronidazole (Metronidazole) 500 Mg Tablet 500 MG PO BID for diverticulitis for 7 Days, #14 TAB 0 Refills Prov: LYLA LANGE MD 08/01/20 Ciprofloxacin HCl (Ciprofloxacin HCl) 500 Mg Tablet 500 MG PO BID for diverticulitis for 7 Days, #14 TAB 0 Refills Prov: LYLA LANGE MD 08/01/20 LYLA LANGE MD Aug 01, 2020 20:40
[2020-08-01 20:45] LABS: BILIRUBIN,URINE NEGATIVE (NEGATIVE); CLARITY,URINE CLOUDY; COLOR,URINE YELLOW; GLUCOSE, URINE (UA) NEGATIVE (NEGATIVE); KETONES,URINE NEGATIVE (NEGATIVE); LEUKOCYTE ESTERASE ,URINE NEGATIVE (NEGATIVE); NITRITE,URINE NEGATIVE (NEGATIVE); PROTEIN,URINE 3+ (NEGATIVE)
[2020-08-01] MEDS ORDERED: METOCLOPRAMIDE INJ 10 MG/2 ML (REGLAN) IVP ONE (20:45)
[2020-08-01] MEDS ORDERED: ORPHENADRINE 60 MG/2 ML (NORFLEX) AMP (ED ONLY) IVP ONE (20:45)
[2020-08-01] MEDS ORDERED: NS IV 1000 ML 1,000 ML IV SCH (20:45)
[2020-08-01] MEDS ORDERED: PANTOPRAZOLE 40 MG (PROTONIX) VIAL IV ONE (20:45)
[2020-08-01 20:46] LABS: BACTERIA,URINE MODERATE /HPF; RBC,URINE 50-100 /HPF; SQUAMOUS EPITHELIAL CELL,UR 25-50 /HPF
[2020-08-01 20:58] LABS: BASOPHILS % (AUTO) 0 % (0-10); EOSINOPHILS % (AUTO) 1 % (0-10); HEMATOCRIT 39 % (35-52); HEMOGLOBIN 13.6 G/DL (11.5-16.0); LYMPHOCYTES % (AUTO) 34 % (12-44); MEAN CORPUSCULAR HEMOGLOBIN 31 PG (25-34); MEAN CORPUSCULAR HGB CONC 35 G/DL (32-36); MEAN CORPUSCULAR VOLUME 91 FL (80-99); MEAN PLATELET VOLUME 10.8 FL (7.4-10.4); MONOCYTES % (AUTO) 12 % (0-12); NEUTROPHILS % (AUTO) 53 % (42-75); PLATELET COUNT 137 10^3/uL (130-400); WHITE BLOOD COUNT 8.2 10^3/uL (4.3-11.0)
[2020-08-01 20:59] LABS: EOSINOPHILS # (AUTO) 0.1 10^3/uL (0.0-0.3); LYMPHOCYTES # (AUTO) 2.8 X 10^3 (1.0-4.0); MONOCYTES # (AUTO) 0.9 X 10^3 (0.0-1.0); NEUTROPHILS # (AUTO) 4.4 X 10^3 (1.8-7.8)
[2020-08-01 21:21] LABS: ALBUMIN 3.9 GM/DL (3.2-4.5); BILIRUBIN,TOTAL 0.4 MG/DL (0.1-1.0); CREATININE SERUM 1.03 MG/DL (0.60-1.30); POTASSIUM 3.8 MMOL/L (3.6-5.0); TOTAL PROTEIN 6.8 GM/DL (6.4-8.2)
--- NOTE | 2020-08-01 21:36 | Diagnostic Imaging Report ---
PROCEDURE: CT abdomen and pelvis without contrast. TECHNIQUE: Multiple contiguous axial images were obtained through the abdomen and pelvis without the use of intravenous contrast. Auto Exposure Controls were utilized during the CT exam to meet ALARA standards for radiation dose reduction. INDICATION: Right upper quadrant and epigastric pain. COMPARISON: 01/07/2020. FINDINGS: The heart is unremarkable. The included lung bases are clear. There is hepatic steatosis. The gallbladder is surgically absent. The spleen, pancreas, adrenal glands and kidneys have a normal noncontrast CT appearance. There is no pathologically enlarged mesenteric or retroperitoneal adenopathy. The bowel loops are nondilated. Scattered diverticuli are present with a small amount of pericolonic inflammatory changes in the sigmoid colon. There is no free fluid or free air. No acute osseous abnormality is visualized. Hernia repair changes are seen in the ventral abdomen. A small fluid collection is seen in the midline of the lower abdomen measuring 3.1 x 1.7 cm, similar to prior exams and likely representing seroma or hematoma. Ureters and bladder are grossly normal. There is no free air, loculated collection or adenopathy in the pelvis. IMPRESSION: 1. Scattered diverticuli with pericolonic inflammatory changes in the sigmoid colon likely representing acute uncomplicated diverticulitis. No evidence of free fluid or free air. No abscess. 2. Hepatic steatosis. Dictated by: Dictated on workstation # [id number]
[2020-08-01] MEDS ORDERED: CIPROFLOXACIN 500 MG (CIPRO) TABLET PO STA (21:57)
[2020-08-01] MEDS ORDERED: metroNIDAZOLE 500 MG (FLAGYL) TAB PO ONE (22:00)
[2020-08-01] MEDS ORDERED: RX-HYDROCODONE/APAP 5/325 MG #4 TAB PK PO PRN (22:00)
[2020-08-01] MEDS ORDERED: fentaNYL INJECTION 100 MCG/2 ML AMP IVP ONE (22:00)
[2020-08-01] MEDS ORDERED: ONDA4TAB11 PO (22:05)
[2020-08-01] MEDS ORDERED: ACHD5005 PO (22:05)
[2020-08-01] MEDS ORDERED: METR-145 PO (22:05)
[2020-08-01] MEDS ORDERED: CIPR500T4 PO (22:05)
[2020-08-01 22:29] VITALS: BP 150/83
== END 2020-08-01 22:34 | disposition home or self-care (01) ==
LOC: EDUNIT# 20:12 → ER FS 20:14
DX: K57.32 Diverticulitis of large intestine without perforation or abscess without bleeding (principal); E66.9 Obesity, unspecified; J45.909 Unspecified asthma, uncomplicated; E03.9 Hypothyroidism, unspecified; F32.9 Major depressive disorder, single episode, unspecified; G89.29 Other chronic pain; M54.9 Dorsalgia, unspecified; Z68.43 Body mass index [BMI] 50.0-59.9, adult; Z87.891 Personal history of nicotine dependence; Z79.890 Hormone replacement therapy; Z88.2 Allergy status to sulfonamides; Z88.1 Allergy status to other antibiotic agents; Z88.8 Allergy status to other drugs, medicaments and biological substances; Z79.891 Long term (current) use of opiate analgesic
CPT/HCPCS: 36415; 74176; 80053; 81000; 83690; 84484; 85025; 87088

== ENCOUNTER 2020-08-07 15:32 | Emergency (ER) | payer MEDICAID ==
[~2020-08-07] VITALS: Ht 170.1 cm; Wt 154.5 kg
[~2020-08-07 15:32] MED LIST changes: +CIPR500T4 PO; +METR-145 PO
--- NOTE | 2020-08-07 15:40 | ED GI ---
General Stated Complaint: ABD PAIN Source of Information: Patient History of Present Illness Date Seen by Provider: Aug 07, 2020 Time Seen by Provider: 15:37 Initial Comments 49-year-old female presents with diffuse abdominal pain for several days. Seen in this ER a couple days ago diagnosed with diverticulitis by CT and sent home with medications and advised follow-up with her PCP. Her appointment was yesterday, however it was canceled due to the provider being ill. Presents via EMS with complaint of abdominal pain and diarrhea after eating. Denies fever or chills. Complains of nausea without vomiting. Appetite is normal. Denies history of diverticulitis. Allergies and Home Medications Allergies Coded Allergies: tetracycline (Verified Allergy, Severe, N/V, 06/08/19) Sulfa (Sulfonamide Antibiotics) (Verified Allergy, Mild, N/V, 06/08/19) hydroxyzine (Verified Allergy, Mild, "JITTERS", 06/08/19) melatonin (Verified Allergy, Mild, NIGHTMARES, 06/08/19) prochlorperazine (Verified Allergy, Mild, "JITTERS", 06/08/19) Home Medications Albuterol Sulfate 1 Puff Puff, 2 PUFF IH Q4H PRN for SHORTNESS OF BREATH, (Reported) 1 PUFF = 90 MCG Ciprofloxacin HCl 500 Mg Tablet, 500 MG PO BID Prescribed by: LYLA LANGE on 08/01/202204 Cyclobenzaprine HCl 10 Mg Tablet, 10 MG PO BID PRN for PRN, (Reported) Cyclobenzaprine HCl 10 Mg Tablet, 10 MG PO BID PRN for SPASMS Prescribed by: JUAN KUMAR on 08/07/19 1347 Diclofenac Sodium 100 Gm Gel..gram., 100 GM TP Q6H PRN for PAIN-SEVERE (8-10) Prescribed by: SUMMER RICH on 10/21/19 1159 Furosemide 40 Mg Tablet, 40 MG PO DAILY, (Reported) Gabapentin 300 Mg Capsule, 300 MG PO TID, (Reported) Hydrocodone Bit/Acetaminophen 1 Each Tablet, 1 TAB PO Q4H Prescribed by: CARMENCITA FAYE on 06/14/19 1434 Hydrocodone/Acetaminophen 1 Each Tablet, 1 TAB PO Q6H PRN for PAIN-SEVERE (8-10) Prescribed by: LYLA LANGE on 08/01/202205 Hydrocodone/Acetaminophen 1 Each Tablet, 1 EACH PO Q4H Prescribed by: ABRIL RODRIGUEZ on 08/07/20 165 Ibuprofen 800 Mg Tablet, 800 MG PO Q8H PRN for PAIN-MILD Prescribed by: ABRIL RODRIGUEZ on 08/23/19 1755 Levothyroxine Sodium 50 Mcg Tablet, 50 MCG PO DAILY, (Reported) Methocarbamol 500 Mg Tablet, 500 MG PO BID PRN for PAIN-MODERATE (5-7), (Reported) Methylprednisolone 4 Mg Tab.ds.pk, 4 MG PO UD PER DOSE PACK INSTRUCTIONS Prescribed by: SUMMER RICH on 10/21/19 1159 Metronidazole 500 Mg Tablet, 500 MG PO BID Prescribed by: LYLA LANGE on 08/01/202204 Nitrofurantoin Macrocrystal 100 Mg Capsule, 100 MG PO BID Prescribed by: JANIS COLE on 01/07/20 1245 Ondansetron 4 Mg Tab.rapdis, 4 MG PO Q6H PRN for NAUSEA/VOMITING Prescribed by: JUAN KUMAR on 08/07/19 1347 Ondansetron 4 Mg Tab.rapdis, 4 MG PO Q6H PRN for NAUSEA/VOMITING Prescribed by: LYLA LANGE on 08/01/202204 Ondansetron 4 Mg Tab.rapdis, 4 MG PO TID Prescribed by: ABRIL RODRIGUEZ on 08/07/201652 Ondansetron HCl 4 Mg Tab, 4 MG PO PRN PRN for NAUSEA/VOMITING, (Reported) Trazodone HCl 150 Mg Tablet, 150 MG PO HS, (Reported) Venlafaxine HCl 75 Mg Tab, 75 MG PO BID, (Reported) Patient Home Medication List Home Medication List Reviewed: Yes Review of Systems Review of Systems Constitutional: No chills, No dizziness, No fever, No weakness EENTM: No Symptoms Reported Respiratory: Denies Cough, Denies Shortness of Air Cardiovascular: Denies Chest Pain, Denies Edema, Denies Palpitations, Denies Syncope Gastrointestinal: Abdomen Distended, Abdominal Pain; Denies Constipated; Diarrhea; Denies Difficulty Swallowing; Nausea; Denies Poor Appetite, Denies Vomiting Genitourinary: No Symptoms Reported Musculoskeletal: no symptoms reported Skin: No change in color, No rash Psychiatric/Neurological: Denies Anxiety, Denies Depressed, Denies Numbness, Denies Paresthesia Past Ukpdbra-Ebkoud-Joumro Hx Past Med/Social Hx: Reviewed Nursing Past Med/Soc Hx Patient Social History Type Used: Cigarettes Former Smoker, Quit: Jun 15, 1996 2nd Hand Smoke Exposure: No Recent Hopitalizations: No Immunizations Up To Date Tetanus Booster (TDap): Less than 5yrs PED Vaccines UTD: Yes Date of Pneumonia Vaccine: Apr 18, 2013 Date of Influenza Vaccine: Apr 03, 2019 Seasonal Allergies Seasonal Allergies: No Past Medical History Surgeries: Yes (HERNIA X3) Abdominal, Appendectomy, Gallbladder, Hysterectomy, Tonsillectomy Respiratory: Yes Asthma, Sleep Apnea Currently Using CPAP: No Currently Using BIPAP: No Cardiac: No Chronic Edema/Swelling Neurological: 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 Headaches /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 Sexually Transmitted Disease: No HIV/AIDS: No Genitourinary: No Gastrointestinal: Yes Abdominal Hernia, Chronic Constipation, Chronic Diarrhea Musculoskeletal: Yes (scoliosis, knee pain back pain) Chronic Back Pain Endocrine: Yes (MERLIN'S) Hypothyroidsim HEENT: Yes Loss of Vision: Denies Hearing Impairment: Denies Cancer: No Psychosocial: Yes (TAKES EFFEXOR FOR NIGHTMARES) Depression Integumentary: No Blood Disorders: No Adverse Reaction/Blood Tranf: No (N/A) Physical Exam Vital Signs Vital Signs - First Documented 08/07/20 15:34 Temp 36.6 Pulse 68 Resp 16 B/P (MAP) 179/71 (107) Pulse Ox 98 O2 Delivery Room Air Capillary Refill : Height/Weight/BMI Height: 5'7.00" Weight: 320lbs. 0oz. 145.021164ac; 50.00 BMI Method:Stated General Appearance: WD/WN, no apparent distress Neck: non-tender, supple Respiratory: chest non-tender, lungs clear, normal breath sounds, no respiratory distress, no accessory muscle use Cardiovascular: regular rate, rhythm, no edema, no gallop, no JVD Gastrointestinal: normal bowel sounds, soft, no organomegaly, no pulsatile mass, distended; No guarding, No rebound; tenderness (diffuse); No hernia, No mass Extremities: non-tender, no pedal edema, normal capillary refill Back: normal inspection, no CVA tenderness, no vertebral tenderness Neurologic/Psychiatric: alert, normal mood/affect Skin: normal color, warm/dry Focused Exam Lactate Level 08/07/20 15:40: Lactic Acid Level 1.84 Lactic Acid Level Laboratory Tests Test 08/07/20 15:40 Lactic Acid Level 1.84 MMOL/L (0.50-2.00) Progress/Results/Core Measures Results/Orders Lab Results Laboratory Tests Test 08/07/20 15:40 08/07/20 16:20 Range/Units White Blood Count 5.6 4.3-11.0 10^3/uL Red Blood Count 4.16 L 4.35-5.85 10^6/uL Hemoglobin 12.7 11.5-16.0 G/DL Hematocrit 38 35-52 % Mean Corpuscular Volume 92 80-99 FL Mean Corpuscular Hemoglobin 31 25-34 PG Mean Corpuscular Hemoglobin Concent 33 32-36 G/DL Red Cell Distribution Width 12.6 10.0-14.5 % Platelet Count 141 130-400 10^3/uL Mean Platelet Volume 10.6 H 7.4-10.4 FL Immature Granulocyte % (Auto) 1 % Neutrophils (%) (Auto) 64 42-75 % Lymphocytes (%) (Auto) 26 12-44 % Monocytes (%) (Auto) 9 0-12 % Eosinophils (%) (Auto) 1 0-10 % Basophils (%) (Auto) 0 0-10 % Neutrophils # (Auto) 3.5 1.8-7.8 X 10^3 Lymphocytes # (Auto) 1.5 1.0-4.0 X 10^3 Monocytes # (Auto) 0.5 0.0-1.0 X 10^3 Eosinophils # (Auto) 0.0 0.0-0.3 10^3/uL Basophils # (Auto) 0.0 0.0-0.1 10^3/uL Immature Granulocyte # (Auto) 0.1 0.0-0.1 10^3/uL Sodium Level 141 135-145 MMOL/L Potassium Level 4.1 3.6-5.0 MMOL/L Chloride Level 103 98-107 MMOL/L Carbon Dioxide Level 29 21-32 MMOL/L Anion Gap 9 5-14 MMOL/L Blood Urea Nitrogen 11 7-18 MG/DL Creatinine 0.93 0.60-1.30 MG/DL Estimat Glomerular Filtration Rate > 60 BUN/Creatinine Ratio 12 Glucose Level 224 H 70-105 MG/DL Lactic Acid Level 1.84 0.50-2.00 MMOL/L Calcium Level 9.1 8.5-10.1 MG/DL Corrected Calcium 9.3 8.5-10.1 MG/DL Total Bilirubin 0.2 0.1-1.0 MG/DL Aspartate Amino Transf (AST/SGOT) 46 H 5-34 U/L Alanine Aminotransferase (ALT/SGPT) 51 0-55 U/L Alkaline Phosphatase 103 40-136 U/L Total Protein 6.1 L 6.4-8.2 GM/DL Albumin 3.7 3.2-4.5 GM/DL Lipase 33 8-78 U/L Urine Color YELLOW Urine Clarity SLT CLOUDY Urine pH 7.0 5-9 Urine Specific [place] 1.025 H 1.016-1.022 Urine Protein 2+ H NEGATIVE Urine Glucose (UA) NEGATIVE NEGATIVE Urine Ketones NEGATIVE NEGATIVE Urine Nitrite NEGATIVE NEGATIVE Urine Bilirubin NEGATIVE NEGATIVE Urine Urobilinogen 0.2 < = 1.0 MG/DL Urine Leukocyte Esterase NEGATIVE NEGATIVE Urine RBC (Auto) 2+ H NEGATIVE Urine RBC 10-25 H /HPF Urine WBC RARE /HPF Urine Squamous Epithelial Cells 5-10 /HPF Urine Crystals NONE /LPF Urine Bacteria TRACE /HPF Urine Casts NONE /LPF Urine Mucus NEGATIVE /LPF Urine Culture Indicated NO My Orders Orders - ABRIL RODRIGUEZ DO Ed Iv/Invasive Line Start (08/07/20 15:40) Cbc With Automated Diff (08/07/20 15:40) Comprehensive Metabolic Panel (08/07/20 15:40) Lipase (08/07/20 15:40) Lactic Acid Analyzer (08/07/20 15:40) Urinalysis (08/07/20 15:40) Acute Abd Series (08/07/20 15:40) Ns Iv 1000 Ml (Sodium Chloride 0.9%) (08/07/20 16:30) Fentanyl Injection (Sublimaze Injection (08/07/20 16:30) Medications Given in ED Current Medications Medications Dose Ordered Sig/Ashley Route Start Time Stop Time Status Last Admin Dose Admin Fentanyl Citrate 50 mcg ONCE ONCE IVP 08/07/20 16:30 08/07/20 16:31 DC 08/07/20 16:30 50 MCG Vital Signs/I&O 08/07/20 15:34 Temp 36.6 Pulse 68 Resp 16 B/P (MAP) 179/71 (107) Pulse Ox 98 O2 Delivery Room Air Progress Progress Note : Progress Note Vital signs stable, labs with no significant abnormality, plain films of the abdomen without any obstruction, pain better with fentanyl. Discussed clear liquid diet and bowel rest for the next several days and follow-up with her primary provider in 3 to 5 days. Diagnostic Imaging Diagonstic Imaging: Xray Plain Films/CT/US/NM/MRI: abdomen Comments IMPRESSION: 1. Cardiomegaly with pulmonary vascular congestion and probable interstitial pulmonary edema. 2. Nonobstructive small bowel gas pattern. 3. Splenomegaly. Dictated on workstation # [id number] Dict: 08/07/20 1625 Trans: 08/07/20 1632 [id number] Interpreted by: MORIAH WITT MD Electronically signed by: Departure Impression Primary Impression: Abdominal pain Qualified Codes: R10.84 - Generalized abdominal pain Additional Impression: Diverticulitis of intestine Qualified Codes: K57.92 - Diverticulitis of intestine, part unspecified, without perforation or abscess without bleeding Disposition: 01 HOME, SELF-CARE Condition: Improved Departure-Patient Inst. Decision time for Depature: 16:50 Referrals: [facility]REW (PCP) Primary Care Physician KITTY JAMA APRN (Family) Primary Care Physician Patient Instructions: CLEAR LIQUID DIET ADULT/CHILD, Diverticulitis (DC) Add. Discharge Instructions: Follow up with your PCP in 3 to 5 days Scripts Ondansetron (Ondansetron Odt) 4 Mg Tab.rapdis 4 MG PO TID for Nausea, #10 TAB Prov: ABRIL RODRIGUEZ DO 08/07/20 Hydrocodone/Acetaminophen (Hydrocodone-Acetamin 5-325 mg) 1 Each Tablet 1 EACH PO Q4H for Abdominal Pain, #10 TAB Prov: MAXISTINEABRIL DO 08/07/20 ABRIL RODRIGUEZ DO Aug 07, 2020 15:40
[2020-08-07 16:11] LABS: HEMATOCRIT 38 % (35-52); HEMOGLOBIN 12.7 G/DL (11.5-16.0); MEAN CORPUSCULAR HEMOGLOBIN 31 PG (25-34); MEAN CORPUSCULAR VOLUME 92 FL (80-99); WHITE BLOOD COUNT 5.6 10^3/uL (4.3-11.0)
[2020-08-07 16:12] LABS: LYMPHOCYTES % (AUTO) 26 % (12-44); MEAN CORPUSCULAR HGB CONC 33 G/DL (32-36); MEAN PLATELET VOLUME 10.6 FL (7.4-10.4); NEUTROPHILS % (AUTO) 64 % (42-75); PLATELET COUNT 141 10^3/uL (130-400)
[2020-08-07 16:13] LABS: BASOPHILS % (AUTO) 0 % (0-10); EOSINOPHILS % (AUTO) 1 % (0-10); LYMPHOCYTES # (AUTO) 1.5 X 10^3 (1.0-4.0); MONOCYTES # (AUTO) 0.5 X 10^3 (0.0-1.0); MONOCYTES % (AUTO) 9 % (0-12); NEUTROPHILS # (AUTO) 3.5 X 10^3 (1.8-7.8)
--- NOTE | 2020-08-07 16:20 | NUR ---
Pt up to bathroom to void. Pt used emergency call light to request RN to wipe her. Pt states due to her habitus she can not reach self from back or front to wipe rectum. Pericare administered after warm disposable bath clothes offered to patient. Pt has toilet paper in the toilet after voiding but a soft small semi-formed stool is noted. Reported to
[2020-08-07 16:27] LABS: CARBON DIOXIDE 29 MMOL/L (21-32); CHLORIDE 103 MMOL/L (98-107); POTASSIUM 4.1 MMOL/L (3.6-5.0); SODIUM 141 MMOL/L (135-145)
[2020-08-07 16:28] LABS: ALANINE AMINOTRANSFERASE 51 U/L (0-55); ALBUMIN 3.7 GM/DL (3.2-4.5); ALKALINE PHOSPHATASE 103 U/L (40-136); BILIRUBIN,TOTAL 0.2 MG/DL (0.1-1.0); BUN/CREATININE RATIO 12; CALCIUM 9.1 MG/DL (8.5-10.1); CREATININE SERUM 0.93 MG/DL (0.60-1.30); GFR ESTIMATED > 60; GLUCOSE 224 MG/DL (70-105); LIPASE 33 U/L (8-78); TOTAL PROTEIN 6.1 GM/DL (6.4-8.2)
[2020-08-07] MEDS ORDERED: NS IV 1000 ML 1,000 ML IV SCH (16:30)
[2020-08-07] MEDS ORDERED: fentaNYL INJECTION 100 MCG/2 ML AMP IVP ONE (16:30)
--- NOTE | 2020-08-07 16:33 | Diagnostic Imaging Report ---
INDICATION: Diffuse abdominal pain. COMPARISON: 08/23/2019. FINDINGS: Frontal radiographic view of the chest shows moderate cardiomegaly and vascular congestion. There is also mild diffuse prominence of the interstitium. There is no focal alveolar consolidation, large effusion, nor pneumothorax. Osseous structures show no gross acute abnormalities. Supine and upright radiographic views of the abdomen show nondistended loops of small bowel. No abnormal air-fluid levels are seen. There is no large collection of free intraperitoneal air. No unexpected extraosseous calcifications or radiopaque foreign bodies are seen. Note is made of splenomegaly. Spleen measures approximately 18 cm in length. Patient is status post previous ventral hernia repair. IMPRESSION: 1. Cardiomegaly with pulmonary vascular congestion and probable interstitial pulmonary edema. 2. Nonobstructive small bowel gas pattern. 3. Splenomegaly. Dictated by: Dictated on workstation # [id number]
[2020-08-07 16:37] LABS: BILIRUBIN,URINE NEGATIVE (NEGATIVE); CLARITY,URINE SLT CLOUDY; COLOR,URINE YELLOW; GLUCOSE, URINE (UA) NEGATIVE (NEGATIVE); KETONES,URINE NEGATIVE (NEGATIVE); LEUKOCYTE ESTERASE ,URINE NEGATIVE (NEGATIVE); NITRITE,URINE NEGATIVE (NEGATIVE); PROTEIN,URINE 2+ (NEGATIVE)
[2020-08-07 16:38] LABS: BACTERIA,URINE TRACE /HPF; WBC,URINE RARE /HPF
[2020-08-07] MEDS ORDERED: ACHD5005 PO ×2 (16:53→17:05)
[2020-08-07] MEDS ORDERED: ONDA4TAB11 PO ×2 (16:53→17:05)
[2020-08-07 17:08] VITALS: BP 168/73
--- NOTE | 2020-08-07 17:08 | NUR ---
Patient rec'd approx 450 ml of fluids as continuously bending extremity and stopping flow of gravity. No vomiting noted in ER. Pt had 1 semi soft unformed stool in toilet.
== END 2020-08-07 17:08 | disposition home or self-care (01) ==
LOC: ER FS 15:32 → EDUNIT# 15:32 → ER FS 17:08
DX: R10.84 Generalized abdominal pain (principal); K57.92 Diverticulitis of intestine, part unspecified, without perforation or abscess without bleeding; J45.909 Unspecified asthma, uncomplicated; G89.29 Other chronic pain; M54.9 Dorsalgia, unspecified; E03.9 Hypothyroidism, unspecified; F32.9 Major depressive disorder, single episode, unspecified; Z88.2 Allergy status to sulfonamides; Z88.1 Allergy status to other antibiotic agents; Z88.8 Allergy status to other drugs, medicaments and biological substances; Z87.891 Personal history of nicotine dependence; Z79.890 Hormone replacement therapy; Z79.891 Long term (current) use of opiate analgesic
CPT/HCPCS: 36415; 74022; 80053; 81000; 83605; 83690; 85025

== ENCOUNTER 2020-10-12 06:43 | Emergency (ER) | payer MEDICAID ==
[~2020-10-12] VITALS: Ht 170.1 cm; Wt 162.3 kg
[~2020-10-12 06:43] MED LIST changes: -CIPR500T4 PO; +CIPR500T5 PO; +METH-731 PO; -METH500T7 PO; -OXYC-471 PO; +OXYC1TAB11 PO
[2020-10-12 06:50] VITALS: BP 168/84
[2020-10-12] MEDS ORDERED: POLY10DR OP (07:21)
--- NOTE | 2020-10-12 07:22 | ED EENT ---
History of Present Illness General Chief Complaint: Eye Problems Stated Complaint: LEFT EYE PAIN Nursing Triage Note: left eye pain since yesterday Source: patient Exam Limitations: no limitations History of Present Illness Date Seen by Provider: Oct 12, 2020 Time Seen by Provider: 07:00 Initial Comments 50-year-old female presents with left eye itching, burning and redness beginning yesterday morning and continuing on arrival this morning. Complains of watery discharge with no change of vision. Denies any right eye symptoms. Some mild light sensitivity Allergies and Home Medications Allergies Coded Allergies: tetracycline (Verified Allergy, Severe, N/V, 06/08/19) Sulfa (Sulfonamide Antibiotics) (Verified Allergy, Mild, N/V, 06/08/19) hydroxyzine (Verified Allergy, Mild, "JITTERS", 06/08/19) melatonin (Verified Allergy, Mild, NIGHTMARES, 06/08/19) prochlorperazine (Verified Allergy, Mild, "JITTERS", 06/08/19) Home Medications Albuterol Sulfate 1 Puff Puff, 2 PUFF IH Q4H PRN for SHORTNESS OF BREATH, (Reported) 1 PUFF = 90 MCG Ciprofloxacin HCl 500 Mg Tablet, 500 MG PO BID Prescribed by: LYLA LANGE on 08/01/202204 Cyclobenzaprine HCl 10 Mg Tablet, 10 MG PO BID PRN for PRN, (Reported) Cyclobenzaprine HCl 10 Mg Tablet, 10 MG PO BID PRN for SPASMS Prescribed by: JUAN KUMAR on 08/07/19 1347 Diclofenac Sodium 100 Gm Gel..gram., 100 GM TP Q6H PRN for PAIN-SEVERE (8-10) Prescribed by: SUMMER RICH on 10/21/19 1159 Furosemide 40 Mg Tablet, 40 MG PO DAILY, (Reported) Gabapentin 300 Mg Capsule, 300 MG PO TID, (Reported) Hydrocodone Bit/Acetaminophen 1 Each Tablet, 1 TAB PO Q4H Prescribed by: CARMENCITA FAYE on 06/14/19 1434 Hydrocodone/Acetaminophen 1 Each Tablet, 1 TAB PO Q6H PRN for PAIN-SEVERE (8-10) Prescribed by: LYLA LANGE on 08/01/20 2206 Hydrocodone/Acetaminophen 1 Each Tablet, 1 EACH PO Q4H Prescribed by: ABRIL RODRIGUEZ on 08/07/20 1705 Ibuprofen 800 Mg Tablet, 800 MG PO Q8H PRN for PAIN-MILD Prescribed by: ABRIL RODRIGUEZ on 08/23/19 1755 Levothyroxine Sodium 50 Mcg Tablet, 50 MCG PO DAILY, (Reported) Methocarbamol 500 Mg Tablet, 500 MG PO BID PRN for PAIN-MODERATE (5-7), (Reported) Methylprednisolone 4 Mg Tab.ds.pk, 4 MG PO UD PER DOSE PACK INSTRUCTIONS Prescribed by: SUMMER RICH on 10/21/19 1159 Metronidazole 500 Mg Tablet, 500 MG PO BID Prescribed by: LYLA LANGE on 08/01/202204 Nitrofurantoin Macrocrystal 100 Mg Capsule, 100 MG PO BID Prescribed by: JANIS COLE on 01/07/20 1245 Ondansetron 4 Mg Tab.rapdis, 4 MG PO Q6H PRN for NAUSEA/VOMITING Prescribed by: JUAN KUMAR on 08/07/19 1347 Ondansetron 4 Mg Tab.rapdis, 4 MG PO Q6H PRN for NAUSEA/VOMITING Prescribed by: LYLA GRAHAMYART on 08/01/202204 Ondansetron 4 Mg Tab.rapdis, 4 MG PO TID Prescribed by: ABRIL RODRIGUEZ on 08/07/20 1705 Ondansetron HCl 4 Mg Tab, 4 MG PO PRN PRN for NAUSEA/VOMITING, (Reported) Polymyxin B Sulf/Trimethoprim 10 Ml Drops, 10 ML OP Q4H Prescribed by: ABRIL RODRIGUEZ on 10/12/20 0721 Trazodone HCl 150 Mg Tablet, 150 MG PO HS, (Reported) Venlafaxine HCl 75 Mg Tab, 75 MG PO BID, (Reported) Patient Home Medication List Home Medication List Reviewed: Yes Review of Systems Review of Systems Constitutional: No dizziness, No fever, No malaise, No weakness Eyes: Denies Blurred Vision; Drainage; Denies Decreased Acuity, Denies Foreign Body Sensation; Pain, Photophobia Ears: No Symptoms Reported Nose: no symptoms reported Mouth: no symptoms reported Throat: no symptoms reported Past Esdxdvl-Cfuvpv-Uhzyje Hx Past Med/Social Hx: Reviewed Nursing Past Med/Soc Hx Patient Social History Alcohol Use: Denies Use Type Used: Cigarettes Former Smoker, Quit: Jun 15, 1996 2nd Hand Smoke Exposure: No Recent Infectious Disease Expo: No Recent Hopitalizations: No Immunizations Up To Date Tetanus Booster (TDap): Less than 5yrs PED Vaccines UTD: Yes Date of Pneumonia Vaccine: Apr 18, 2013 Date of Influenza Vaccine: Apr 03, 2019 Seasonal Allergies Seasonal Allergies: No Past Medical History Surgeries: Yes (HERNIA X3) Abdominal, Appendectomy, Gallbladder, Hysterectomy, Tonsillectomy Respiratory: Yes Asthma, Sleep Apnea Currently Using CPAP: No Currently Using BIPAP: No Cardiac: No Chronic Edema/Swelling 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 Sexually Transmitted Disease: No HIV/AIDS: No Genitourinary: No Gastrointestinal: Yes Abdominal Hernia, Chronic Constipation, Chronic Diarrhea Musculoskeletal: Yes (scoliosis, knee pain back pain) Chronic Back Pain Endocrine: Yes (MERLIN'S) Hypothyroidsim HEENT: Yes Loss of Vision: Denies Hearing Impairment: Denies Cancer: No Psychosocial: Yes (TAKES EFFEXOR FOR NIGHTMARES) Depression Integumentary: No Blood Disorders: No Adverse Reaction/Blood Tranf: No (N/A) Physical Exam Vital Signs Vital Signs - First Documented 10/12/20 06:50 Temp 36.0 Pulse 74 Resp 16 B/P (MAP) 168/84 (112) O2 Delivery Room Air Height, Weight, BMI Height: 5'7.00" Weight: 320lbs. 0oz. 145.866846zk; 56.00 BMI Method:Stated General Appearance: WD/WN, no apparent distress Eyes: left eye conjunctival inflammation; bilateral eye PERRL, bilateral eye EOMI Ears: bilateral ear auricle normal, bilateral ear canal normal, bilateral ear TM normal Nose: normal inspection; No sinus tenderness Mouth/Throat: normal mouth inspection, pharynx normal Neck: non-tender, supple; No lymphadenopathy (R), No lymphadenopathy (L) Neurologic/Psychiatric: alert, normal mood/affect, oriented x 3 Skin: normal color, warm/dry Progress/Results/Core Measures Results/Orders Vital Signs/I&O 10/12/20 06:50 Temp 36.0 Pulse 74 Resp 16 B/P (MAP) 168/84 (112) O2 Delivery Room Air Blood Pressure Mean: 112 Departure Impression Primary Impression: Conjunctivitis Qualified Codes: H10.32 - Unspecified acute conjunctivitis, left eye Disposition: 01 HOME, SELF-CARE Condition: Stable Departure-Patient Inst. Decision time for Depature: 07:21 Referrals: [facility] (PCP) Primary Care Physician KITTY JAMA APRN (Family) Primary Care Physician Patient Instructions: Conjunctivitis ([facility]) ED Add. Discharge Instructions: See your local eye doctor in [place] on Wednesday if you are not feeling better. All discharge instructions reviewed with patient and/or family. Voiced understanding. Scripts Polymyxin B Sulf/Trimethoprim (Polytrim Eye Drops) 10 Ml Drops 10 ML OP Q4H for 7 Days, #1 VIAL Prov: ABRIL RODRIGUEZ DO 10/12/20 ABRIL RODRIGUEZ DO Oct 12, 2020 07:22
== END 2020-10-12 07:27 | disposition home or self-care (01) ==
LOC: EDUNIT# 06:43 → ER FS 06:47
DX: H10.32 Unspecified acute conjunctivitis, left eye (principal); G89.29 Other chronic pain; M54.9 Dorsalgia, unspecified; F32.9 Major depressive disorder, single episode, unspecified; E06.3 Autoimmune thyroiditis; E89.0 Postprocedural hypothyroidism; G47.30 Sleep apnea, unspecified; G43.909 Migraine, unspecified, not intractable, without status migrainosus; K59.09 Other constipation; M41.9 Scoliosis, unspecified; J45.909 Unspecified asthma, uncomplicated; Z87.891 Personal history of nicotine dependence; Z79.52 Long term (current) use of systemic steroids; Z79.890 Hormone replacement therapy; Z88.1 Allergy status to other antibiotic agents; Z88.2 Allergy status to sulfonamides; Z88.8 Allergy status to other drugs, medicaments and biological substances
CPT/HCPCS: 99281

== ENCOUNTER 2020-12-06 21:56 | Emergency (ER) | payer MEDICAID ==
[~2020-12-06] VITALS: Ht 170 cm; Wt 158.0 kg
[~2020-12-06 21:56] MED LIST changes: +POLY10DR OP
[2020-12-06 22:00] VITALS: BP 170/86
[2020-12-06] MEDS ORDERED: KETOROLAC 30 MG/ML VIAL IVP STA (22:05)
--- NOTE | 2020-12-06 22:05 | ED General ---
General Stated Complaint: GEN PROBLEMS History of Present Illness Date Seen by Provider: Dec 06, 2020 Time Seen by Provider: 22:05 Initial Comments 50-year-old female presents with a headache. Patient has a known history of headaches and chronic abdominal pain. Patient reports that she is get ready to move was reached end of a box and straightened up. When she straightened up she had a sharp pain shoot up to her abdomen, felt like her blood pressure became elevated. She reports that she developed a headache. Reports that this happened 30 minutes prior to arrival. Patient has not tried anything for her symptoms. She is brought in by EMS. No vision pains. She does have some mild nausea. No other systemic complaints Allergies and Home Medications Allergies Coded Allergies: tetracycline (Verified Allergy, Severe, N/V, 06/08/19) Sulfa (Sulfonamide Antibiotics) (Verified Allergy, Mild, N/V, 06/08/19) hydroxyzine (Verified Allergy, Mild, "JITTERS", 06/08/19) melatonin (Verified Allergy, Mild, NIGHTMARES, 06/08/19) prochlorperazine (Verified Allergy, Mild, "JITTERS", 06/08/19) Home Medications Albuterol Sulfate 1 Puff Puff, 2 PUFF IH Q4H PRN for SHORTNESS OF BREATH, (Reported) 1 PUFF = 90 MCG Ciprofloxacin HCl 500 Mg Tablet, 500 MG PO BID Prescribed by: LYLA LANGE on 08/01/20 2205 Cyclobenzaprine HCl 10 Mg Tablet, 10 MG PO BID PRN for PRN, (Reported) Cyclobenzaprine HCl 10 Mg Tablet, 10 MG PO BID PRN for SPASMS Prescribed by: JUAN KUMAR on 08/07/19 1347 Diclofenac Sodium 100 Gm Gel..gram., 100 GM TP Q6H PRN for PAIN-SEVERE (8-10) Prescribed by: SUMMER RICH on 10/21/19 1159 Furosemide 40 Mg Tablet, 40 MG PO DAILY, (Reported) Gabapentin 300 Mg Capsule, 300 MG PO TID, (Reported) Hydrocodone Bit/Acetaminophen 1 Each Tablet, 1 TAB PO Q4H Prescribed by: CARMENCITA FAYE on 06/14/19 1434 Hydrocodone/Acetaminophen 1 Each Tablet, 1 TAB PO Q6H PRN for PAIN-SEVERE (8-10) Prescribed by: LYLA LANGE on 08/01/202205 Hydrocodone/Acetaminophen 1 Each Tablet, 1 EACH PO Q4H Prescribed by: ABRIL RODRIGUEZ on 08/07/20 170 Ibuprofen 800 Mg Tablet, 800 MG PO Q8H PRN for PAIN-MILD Prescribed by: ABRIL RODRIGUEZ on 08/23/19 1755 Levothyroxine Sodium 50 Mcg Tablet, 50 MCG PO DAILY, (Reported) Methocarbamol 500 Mg Tablet, 500 MG PO BID PRN for PAIN-MODERATE (5-7), (Reported) Methylprednisolone 4 Mg Tab.ds.pk, 4 MG PO UD PER DOSE PACK INSTRUCTIONS Prescribed by: SUMMER RICH on 10/21/19 1159 Metronidazole 500 Mg Tablet, 500 MG PO BID Prescribed by: LYLA LANGE on 08/01/202204 Nitrofurantoin Macrocrystal 100 Mg Capsule, 100 MG PO BID Prescribed by: JANIS COLE on 01/07/20 1245 Ondansetron 4 Mg Tab.rapdis, 4 MG PO Q6H PRN for NAUSEA/VOMITING Prescribed by: JUAN KUMAR on 08/07/19 1347 Ondansetron 4 Mg Tab.rapdis, 4 MG PO Q6H PRN for NAUSEA/VOMITING Prescribed by: LYLA LANGE on 08/01/202204 Ondansetron 4 Mg Tab.rapdis, 4 MG PO TID Prescribed by: ABRIL RODRIGUEZ on 08/07/201704 Ondansetron HCl 4 Mg Tab, 4 MG PO PRN PRN for NAUSEA/VOMITING, (Reported) Polymyxin B Sulf/Trimethoprim 10 Ml Drops, 10 ML OP Q4H Prescribed by: ABRIL RODRIGUEZ on 10/12/20 0721 Trazodone HCl 150 Mg Tablet, 150 MG PO HS, (Reported) Venlafaxine HCl 75 Mg Tab, 75 MG PO BID, (Reported) Patient Home Medication List Home Medication List Reviewed: Yes Review of Systems Review of Systems Constitutional: see HPI EENTM: no symptoms reported Respiratory: no symptoms reported Cardiovascular: no symptoms reported Gastrointestinal: see HPI Musculoskeletal: see HPI Skin: no symptoms reported Past Bjxdgnn-Mxtwoe-Lyhbbe Hx Past Med/Social Hx: Reviewed Nursing Past Med/Soc Hx Patient Social History Type Used: Cigarettes Former Smoker, Quit: Jun 15, 1996 2nd Hand Smoke Exposure: No Recent Hopitalizations: No Immunizations Up To Date Tetanus Booster (TDap): Less than 5yrs PED Vaccines UTD: Yes Date of Pneumonia Vaccine: Apr 18, 2013 Date of Influenza Vaccine: Apr 03, 2019 Seasonal Allergies Seasonal Allergies: No Past Medical History Surgeries: Yes (HERNIA X3) Abdominal, Appendectomy, Gallbladder, Hysterectomy, Tonsillectomy Respiratory: Yes Asthma, Sleep Apnea Currently Using CPAP: No Currently Using BIPAP: No Cardiac: No Chronic Edema/Swelling Neurological: 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 0oz. 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 Norm as Tested Skin: Normal Color, Warm/Dry Progress/Results/Core Measures Suspected Sepsis SIRS Temperature: Pulse: Respiratory Rate: Laboratory Tests 12/06/20 22:02: White Blood Count 6.8 Blood Pressure / Mean: Laboratory Tests 12/06/20 22:02: Creatinine 0.97, Platelet Count 131, Total Bilirubin 0.4 Results/Orders Lab Results Laboratory Tests Test 12/06/20 22:02 Range/Units White Blood Count 6.8 4.3-11.0 10^3/uL Red Blood Count 4.44 4.35-5.85 10^6/uL Hemoglobin 14.2 11.5-16.0 G/DL Hematocrit 40 35-52 % Mean Corpuscular Volume 91 80-99 FL Mean Corpuscular Hemoglobin 32 25-34 PG Mean Corpuscular Hemoglobin Concent 35 32-36 G/DL Red Cell Distribution Width 13.2 10.0-14.5 % Platelet Count 131 130-400 10^3/uL Mean Platelet Volume 10.9 H 7.4-10.4 FL Immature Granulocyte % (Auto) 0 % Neutrophils (%) (Auto) 52 42-75 % Lymphocytes (%) (Auto) 38 12-44 % Monocytes (%) (Auto) 10 0-12 % Eosinophils (%) (Auto) 0 0-10 % Basophils (%) (Auto) 0 0-10 % Neutrophils # (Auto) 3.5 1.8-7.8 X 10^3 Lymphocytes # (Auto) 2.6 1.0-4.0 X 10^3 Monocytes # (Auto) 0.7 0.0-1.0 X 10^3 Eosinophils # (Auto) 0.0 0.0-0.3 10^3/uL Basophils # (Auto) 0.0 0.0-0.1 10^3/uL Immature Granulocyte # (Auto) 0.0 0.0-0.1 10^3/uL Sodium Level 139 135-145 MMOL/L Potassium Level 3.6 3.6-5.0 MMOL/L Chloride Level 99 98-107 MMOL/L Carbon Dioxide Level 28 21-32 MMOL/L Anion Gap 12 5-14 MMOL/L Blood Urea Nitrogen 13 7-18 MG/DL Creatinine 0.97 0.60-1.30 MG/DL Estimat Glomerular Filtration Rate > 60 BUN/Creatinine Ratio 13 Glucose Level 184 H 70-105 MG/DL Calcium Level 9.3 8.5-10.1 MG/DL Corrected Calcium 9.3 8.5-10.1 MG/DL Total Bilirubin 0.4 0.1-1.0 MG/DL Aspartate Amino Transf (AST/SGOT) 41 H 5-34 U/L Alanine Aminotransferase (ALT/SGPT) 60 H 0-55 U/L Alkaline Phosphatase 112 40-136 U/L Total Protein 6.4 6.4-8.2 GM/DL Albumin 4.0 3.2-4.5 GM/DL My Orders Orders - KUMAR,JUAN L DO Cbc With Automated Diff (12/06/20 22:05) Comprehensive Metabolic Panel (12/06/20 22:05) Ua Culture If Indicated (12/06/20 22:05) Ketorolac Injection (Toradol Injection) (12/06/20 22:05) Ondansetron Injection (Zofran Injectio (12/06/20 22:30) Medications Given in ED Current Medications Medications Dose Ordered Sig/Ashley Route Start Time Stop Time Status Last Admin Dose Admin Ondansetron HCl 4 mg ONCE ONCE IVP 12/06/20 22:30 12/06/20 22:31 DC 12/06/20 22:37 4 MG Vital Signs/I&O Capillary Refill : Progress Note : Progress Note Patient reports she was mainly concerned about her blood pressure. Her last blood pressure reading was a systolic in the 150s. Patient reports that she still has a headache. However further visiting with her her headache has been there all day and did not start just 30 minutes prior to arrival like she initially said. Patient has a history of chronic headaches and this was very similar. She has a multitude of home medications to try. Recommend she go home and try them when she is discharged home Departure Impression Primary Impression: Hypertension Qualified Codes: I10 - Essential (primary) hypertension Additional Impression: Chronic headache Qualified Codes: R51.9 - Headache, unspecified; G89.29 - Other chronic pain Disposition: 01 HOME, SELF-CARE Condition: Stable Departure-Patient Inst. Referrals: [facility]/K (PCP) Primary Care Physician KITTY JAMA APRN (Family) Primary Care Physician Patient Instructions: Headache, Adult (DC), High Blood Pressure in Adults Add. Discharge Instructions: Follow-up with your primary care provider next week as needed for recheck of your symptoms JUAN KUMAR DO Dec 06, 2020 22:05
[2020-12-06 22:13] LABS: BASOPHILS % (AUTO) 0 % (0-10); EOSINOPHILS % (AUTO) 0 % (0-10); HEMATOCRIT 40 % (35-52); HEMOGLOBIN 14.2 G/DL (11.5-16.0); LYMPHOCYTES # (AUTO) 2.6 X 10^3 (1.0-4.0); LYMPHOCYTES % (AUTO) 38 % (12-44); MEAN CORPUSCULAR HEMOGLOBIN 32 PG (25-34); MEAN CORPUSCULAR HGB CONC 35 G/DL (32-36); MEAN CORPUSCULAR VOLUME 91 FL (80-99); MEAN PLATELET VOLUME 10.9 FL (7.4-10.4); MONOCYTES # (AUTO) 0.7 X 10^3 (0.0-1.0); MONOCYTES % (AUTO) 10 % (0-12); NEUTROPHILS # (AUTO) 3.5 X 10^3 (1.8-7.8); NEUTROPHILS % (AUTO) 52 % (42-75); PLATELET COUNT 131 10^3/uL (130-400); WHITE BLOOD COUNT 6.8 10^3/uL (4.3-11.0)
[2020-12-06] MEDS ORDERED: ONDANSETRON 4 MG/2 ML (SDV) Z0FRAN IVP ONE (22:30)
[2020-12-06 22:32] LABS: POTASSIUM 3.6 MMOL/L (3.6-5.0); SODIUM 139 MMOL/L (135-145)
[2020-12-06 22:33] LABS: ALANINE AMINOTRANSFERASE 60 U/L (0-55); ALKALINE PHOSPHATASE 112 U/L (40-136); BILIRUBIN,TOTAL 0.4 MG/DL (0.1-1.0); BUN/CREATININE RATIO 13; CALCIUM 9.3 MG/DL (8.5-10.1); CARBON DIOXIDE 28 MMOL/L (21-32); CHLORIDE 99 MMOL/L (98-107); CREATININE SERUM 0.97 MG/DL (0.60-1.30); GFR ESTIMATED > 60; GLUCOSE 184 MG/DL (70-105); TOTAL PROTEIN 6.4 GM/DL (6.4-8.2)
== END 2020-12-06 23:03 | disposition home or self-care (01) ==
LOC: EDUNIT# 21:56 → ER FS 21:57
DX: I10 Essential (primary) hypertension (principal); G89.29 Other chronic pain; R51.9 Headache, unspecified; E66.9 Obesity, unspecified; J45.909 Unspecified asthma, uncomplicated; E03.9 Hypothyroidism, unspecified; F32.9 Major depressive disorder, single episode, unspecified; M54.9 Dorsalgia, unspecified; M25.569 Pain in unspecified knee; Z68.43 Body mass index [BMI] 50.0-59.9, adult; Z87.891 Personal history of nicotine dependence; Z79.890 Hormone replacement therapy; Z79.891 Long term (current) use of opiate analgesic; Z79.52 Long term (current) use of systemic steroids; Z79.899 Other long term (current) drug therapy
CPT/HCPCS: 36415; 80053; 85025; 99283